=== PATIENT | female | born 1970 | race African-American/Black ===

== ENCOUNTER 2025-02-25 09:20 | Outpatient (CLI) | payer BC, SELFPAY ==
--- NOTE | ~2025-02-25 | XR_ITS ---
XR abdomen/kub 1V 02/25/2025 09:45 Indication: Right ureteral stone Procedure: KUB Comparison: No prior studies for comparison. Findings: There is a right ureteral stone at the L3 level overlying the transverse process measuring approximately 10 x 7 mm. Bowel gas pattern nonobstructive. Moderate colonic fecal loading. There are surgical changes in the epigastric region. There are pelvic phleboliths. Impression: 1: Proximal right ureteral stone at the L3 level measuring 10 x 7 mm. Reviewed, dictated and finalized at location B. Impression: 1: Proximal right ureteral stone at the L3 level measuring 10 x 7 mm.
--- OUTSIDE RECORDS SUMMARY | 2025-02-25 10:24 | XMS_ITS | Encounter Summary ---
Author Organization [facility] Healthcare Address [address] [place] [address] Care Team Providers Care Division Order Technician Name Role Phone Aicha Cuello MD Primary Care Provider Reason for Visit * Diagnostic Imaging (Routine) - Closed Specialty Diagnoses / Procedures Referred By Erisac t Referred To Contact Diagnoses Lung nodule Procedures Breast Imaging Screening Outside Reference Referral, Self Referral ID Status Reason Start Date Expiration Date Visits Re quested Visits Authorized [id number] Closed 01/12/2022 02/11/2023 1 1 Encounter Details Date Type Department Care Team (Late st Contact Info) Description 12/15/2020 Hospital Encounter [facility]iology [facility] [address] [place] [address] Social History Tobacco Use Types Packs/Day Years [...] on file 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 Never 10/28/2024 10:45 AM Katelynn Hinojosa RMA Q2: How many drinks containing alcohol do you have on a typical day when you are drinking? Patient does not drink 10/28/2024 10:45 AM Katleynn Hinojosa RMA Q3: How often do you [...] only and have not been reviewed by [facility] Radiology. There will be no report generated by a [facility] Radiologist. Narrative RAD_MAMMO_BJH - 01/12/2022 10:01 [...] documented as of this encounter Care Teams Division Order Technician Relationship Specialty Start Date End Date Aicha Cuello MD [facility] [place] [address] PCP - General Family Practice 10/15/18 documented as of this encounter
--- OUTSIDE RECORDS SUMMARY | 2025-02-25 10:24 | XMS_ITS | Encounter Summary ---
Author Name [facility] [place] [facility] [place] [facility] [place] Address [address] [place] [address] Care Team Providers Care Emergency Management Program Specialist Name Role Phone ANN-MARIE HERNANDEZ Primary Care Provider Unavailabl e Insurance Providers: All historical and current Section Date Range: From patient's date of to the date document was created. This section includes the names of all active insurance providers for the patient. Insurance Provider Type of Coverage Plan Name Start of Policy Coverage End of Policy Coverage Group Number Member ID Insurance Provider's Telephone Number Policy Ferreira's Name Patient's Relationship to Policy Ferreira [place] PREFERRED PROVIDER ORGANIZAT ION (PPO) USPS BASIC SELF Sep 17, 2024 33A [id number] [phone] LAWRENCE BRYAN PATIENT ANTHEM [place] PREFERRED PROVIDER ORGANIZAT ION (PPO) USPS BASIC SELF Sep 17, 2024 33A [id number] [phone] LAWRENCE BRYAN PATIENT [place] PREFERRED PROVIDER ORGANIZAT ION (PPO) USPS BASIC SELF Sep 17, 2024 33A [id number] [phone] LAWRENCE BRYAN PATIENT [place] PREFERRED PROVIDER ORGANIZAT ION (PPO) USPS BASIC SELF Sep 17, 2024 33A [id number] [phone] LAWRENCE BRYAN PATIENT [employer] FEP ([id number]) PRESCRIPT ION FEPRX Nov 26, 2021 [id number] [phone] LAWRENCE BRYAN PATIENT [employer] PREFERRED PROVIDER ORGANIZAT ION (PPO) BI-ST KYLE ESCOBAR OPMEN T Sep 17, 2023 [id number] MATTIE SHERMAN RISTOPHER SPOUSE Selected Encounter This section includes the information on record at [place] for the Encounter. 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 This section includes future appointments and future orders which are active, pending or scheduled. Future Appointments This section includes appointments that were scheduled to occur 6 months from the date of the Encounter, up to a maximum of 20 appointments. The data comes from all [place] treatment facilities. Appointment Date/Time Appointment Type Appointme nt Facility Name Dec 26, 2024 01:00 PM AMBULATORY - SURGERY [facility] Jan 06, 2025 08:00 AM AMBULATORY - SURGERY [facility] February 03, 2025 11:40 AM AMBULATORY - SURGERY [facility] Active, Pending, and Scheduled Orders This section includes a listing of several types of active, pending, and scheduled orders, including clinic medications orders, diagnostic test orders, procedure orders and consult orders; where the start date of the order is 45 days before the date of the Encounter or 45 days after the date of theEncounter. The data comes from all [place] treatment facilities. Test Date/Time Test Type Test Details Facility Name Dec 22, 2024 12:00 AM Laboratory - Chemi stry Order TEST URINE (MA-STL) URINE YELLOW SP [facility] Lab Results: +/- 30 days of the encounter This section includes the Chemistry and Hematology Lab Results on record with [place] for the patient. Radiology Reports and Pathology Reports are provided separately, in subsequent sections. Lab Results This section contains the Chemistry/Hematology Results that were resulted 30 days before or 30 daysafter the date of the Encounter. Date/Time Source Result Type Result - Unit Interpretation Reference Range Specimen Type Comment Dec 24, 2024 10:54 AM [facility] GLUCOSE,BLOOD-poct (STL) BLOOD Specimen Type: BLOOD Comment: Test Performed by: [id number] Meter #: [id number] Ordering Provider: ANN-MARIE HERNANDEZ Report Released Date/Time: Dec 24, 2024 11:01 AM Reporting Lab: [place] [address] [facility] [id number] Performing Lab: [address] [address] GLUCOSE,BLOOD-poct (STL) 83 mg/dL 72-99 Dec 23, 2024 04:02 PM [facility] COVID-19 DIAGNOSTIC (FLU/RSV)(STL) NASOPHARYNX Spec imen Type: NASOPHARYNX Comment: Qualitative real-time PCR and RT-PCR to detect viral RNA. A negative result does not preclude infection with the agent(s) tested and should not be used as the sole basis for treatment or other patient management decisions. If negative, but symptoms persist, consider re-testing. Positive results do not rule out bacterial infection or co-infection with other viruses. All results must be combined with clinical observations, patient history, and epidemiological information for final interpretation. Ordering Provider: BRADLEY FRIED Report Released Date/Time: Dec 23, 2024 02:34 PM Reporting Lab: [facility] [place] [id number] Performing Lab: [place] [address] INFLUENZA A NEG Negative INFLUENZA B NEG Negative COVID-19 (STL-PB) NEG Not Detected RSV (Cepheid) Negative Negative Dec 16, 2024 06:45 AM [facility] CBC BLOOD Specimen Type: BLOOD No comment entered. Ordering Provider: BRADLEY FRIED Report Released Date/Time: Nov 19, 2024 08:50 AM Reporting Lab: [place] [id number] Performing Lab: [place] [address] WBC 5.5 10*3/uL 3.6-11.2 RBC 4.07 10*6/uL 3.60-5.00 HGB 11.4 g/dL 11.0-14.9 HCT 34.6 32.6-43.4 MCV 85.0 fL 80.0-100.0 MCH 28.0 pg 27.0-34.0 MCHC 32.9 g/dL L 33.0-36.0 PLT 274 10*3/uL 150-400 MPV 9.2 fL 7.5-11.2 RDW 12.9 11.8-15.1 LYMPHOCYTES, AUTO % 44 MONOCYTES, AUTO % 7 NEUTROPHILS, AUTO % 46 EOSINOPHILS, AUTO % 2 BASOPHILS, AUTO % 1 LYMPHOCYTES, ABSOLUTE 2.40 10*3/uL 0.77- 4.50 MONOCYTES, ABSOLUTE 0.37 10*3/uL 0.19-0. 80 NEUTROPHILS, ABSOLUTE 2.54 10*3/uL 2.10- 8.00 EOSINOPHILS, ABSOLUTE 0.12 10*3/uL 0.00- 0.60 BASOPHILS, ABSOLUTE 0.06 10*3/uL 0.00-0. 20 Dec 16, 2024 06:45 AM [facility] COMPREHENSIVE METABOLIC PANEL PLASMA Specimen Type: PLASMA Comment: No hemolysis noted. VERIFIED BY REPEAT Ordering Provider: BRADLEY FRIED Report Released Date/Time: Nov 19, 2024 08:50 AM Reporting Lab: [address] [place] [address] Performing Lab: [facility] [address] [facility] [id number] CREATININE 0.86 mg/dL 0.6-1.1 UREA NITROGEN 10.3 mg/dL 9.0-25.0 GLUCOSE 81 mg/dL 72-99 SODIUM 139 meq/L 136-145 POTASSIUM 3.8 meq/L 3.5-5 CHLORIDE 105 meq/L 98-107 CARBON DIOXIDE 26 meq/L 22-31 CALCIUM 9.5 mg/dL 8.4-10.4 PROTEIN 7.1 g/dL 6-8.6 ALBUMIN 4.1 g/dL 3.4-5 TOTAL BILIRUBIN 0.6 mg/dL 0.2-1.2 ALKALINE PHOSPHATASE 77 U/L 40-150 AST/SGOT 28 U/L 5-34 ALT/SGPT 26 U/L 8-40 EGFR (CKD-EPI 2020) 81.2 >60 Vital Signs: All taken on the encounter date This section contains inpatient and outpatient Vital Signs collected on the date of the Encounter. Date/Time Temperature Pulse Blood Pressure Respiratory Rate SP02 Pain Height Weight Body Mass Index Source Dec 24, 2024 01:53 PM 98.3 72 150/80 15 96 0 [facility] Dec 24, 2024 10:30 AM 98.6 81 134/82 12 98 0 64 191.2 33 [facility] N Advance Directives: All historical and current Section Date Range: From patient's date of to the date document was created. This section includes ALL of a patient's completed or amended [place] Advance and Rescinded Directives. The entries below indicate that a directive exists for the patient, but an actual copy is not included with this document. The data comes from all [place] facilities. Date Advance Directives Provider Source Mar 21, 1996 ADVANCE DIRECTIVE HARJIT BURGOS [facility] Encounter Notes: All associated encounter notes This section contains the clinical notes associated to the Encounter. 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 No History of cancer diagnosis? No History of radiation therapy to planned surgical field(s)?No History of sleep apnes?Yes If yes, do you currently use CPAP machine? YesComment: Dentures:No Hearing Aides:No Ambulatory Aides:No Personal Belongings Secured in locker. 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 No Pain No Do you have a history of tobacco use?No No tobacco use in the last 12 months Do you have an Advance Directive?No Nursing care plan STANDARD OF CARE / PRACTICE INITIAL NURSING DIAGNOSIS: AETC Alteration in Comfort and Knowledge Related to: Invasive procedure: EXPECTED OUTCOMES: Patient Will: X Verbalize an understanding of procedure. Target Date: X Verbalize effective use of pain medication. Target Date: X Be free of complications post-procedure. Target Date: X Verbalize knowledge of discharge instructions and follow-up care. Target Date: NURSING INTERVENTIONS: PHYSIOLOGICAL 1. Assess and monitor vital signs and respiratory status pre and post-procedure. INITIATED 2. Assess need for PT/OT instruction prior to procedure (i.e.,crutch training). NOT APPLICABLE 3. Assess incision site/dressing for drainage, bleeding, hematoma, and site pain post-procedure. INITIATED 4. Initiate appropriate wound care post-procedure. INITIATED 5. Maintain IV access and parenteral infusions pre and post- procedure. INITIATED 6. Assess post-procedure for adequate oral intake, urinary elimination, and return of prior motor function. INITIATED COMFORT 7. Monitor for pain (location, intensity, frequency and precipitating factors). INITIATED 8. Administer, evaluate and document the effectiveness of pain medication. INITIATED SAFETY 9. Keep call light within reach and reinforce calling for assistance as needed. INITIATED 10. Explain and reinforce smoking policy. INITIATED 11. Other: NOT APPLICABLE INFECTION CONTROL 12. Maintain Standard Precautions and explain need to patient/significant others. INITIATED EQUIPMENT NEEDS 13. Assess and provide equipment/supplies required to provide safe patient care. INITIATED KNOWLEDGE (PATIENT EDUCATION) 14. Provide teaching specific to patient's needs: X NPO status X IV therapy X Pain management Early mobility Turning, coughing and deep breathing Incentive spirometer CHRISTINA hose Other: INITIATED 15. Instruct patient/significant other on homecare requirements. INITIATED 16. Signs and symptoms to report to health care team. INITIATED PSYCHOSOCIAL / FUNCTIONAL 17. Encourage feedback related to patient's expectations/concerns related to procedure. INITIATED 18. Assess patient/significant other's ability to manage and comply with discharge instructions. INITIATED DISCHARGE PLANNING 19. Assure appropriate transportation available upon discharge. INITIATED 20. Encourage patient to keep all follow-up clinic appointments. INITIATED 21. Continue discharge planning/aftercare with patient/significant other using interdisciplinary approach: Physician/Service: PT OT Community Support Groups: Other: NOT APPLICABLE 22. Other interventions specific to patient: NOT APPLICABLE THE ABOVE EXPECTED OUTCOMES (GOALS) HAVE BEEN MUTUALLY SET WITH: Patient Nursing Diagnosis: Pain, Acute/Chronic Goals/Expected Outcomes: Patient verbalizes factors theat itensify pain and modifies behavior accordingly. Patient states and carries out out appropriate interventions for pain relief. Interventions Admiinister pharmacological agents as ordered/per control. Assess and reassess pain using the NRS or PANPS per policy Performs comfort measures to promote relaxation and periods of uninterrupted rest Plan activites with patient to provide distraction. Discuss patient's fears of under treated pain, overdose, or addicttion /es/ KYREE ROACH RN REGISTERED NURSE Signed: 12/24/2024 11:52 12/24/2024 ADDENDUM STATUS: COMPLETED 1225 Pt Passport done with all OR support team. Pt transferred to OR Via stretcher and OR team /es/ NELLA ROACH RN REGISTERED NURSE Signed: 12/24/2024 12:27 12/24/2024 ADDENDUM STATUS: COMPLETED Received pt. from PACU @1350, A&O x4, VSS, no c/o voiced, Coban wrap dressing intact to right hand/wrist, able to wiggle pinky finger; all others remain numb from surgical block, capillary refill > 3 secs., tolerating PO, bed in low position, call light within reach, at bedside, will continue to monitor pt. and discharge when ready. /tristin/ DANA URBINA LPN REGISTERED NURSE STUDENT Signed: 12/24/2024 14:15 12/24/2024 ADDENDUM STATUS: COMPLETED Discharge instructions and follow-up appointment provided; verbalized understanding, SAE Quintanilla, pt. and ambulated off unit to olive picker medication from pharmacy then go home @1415. /tristin/ DANA URBINA LPN REGISTERED NURSE STUDENT Signed: 12/24/2024 14:19 12/24/2024 ADDENDUM STATUS: COMPLETED AETC DISCHARGE NURSING DIAGNOSIS: AETC Alteration in Comfort and Knowledge Related to: Invasive procedure: RT CTR EXPECTED OUTCOMES MET BY PATIENT: Verbalizes an understanding of procedure. , Is free of complications post-procedure., Verbalizes knowledge of discharge instructions and follow-up care., Patient/significant other demonstrates procedures / skills for effective home care., Decreased level of anxiety related to discharge/home care achieved. Comment: ASSESSMENT: Patient is awake and oriented: Yes Vital signs stable: Yes Temperature < 101 F: Yes Wound site stable: Yes Tolerates fluids: Yes Minimal nausea: Yes Able to urinate: Yes Able to ambulate: Yes Patient is free of dyspnea: Yes Patient is free of pain: Yes Pain Score:0 Comment: DISCHARGE: Discharge Summary Date/Time:Dec@14:15 Discharge instruction sheet given to patient: Yes Patient instructed on:Discharge instructions were read to the pt by his nurse Dana VELEZ, reviewed wound care, reasons to call Dr or go to the ER, follow up appointment given, Mode of discharge: ambulatory Accompanied by: Family member, Verbalized understanding of plan of care Follow-up appointment: Clinic: Plastics Date/Time:Dec@08:00 /boyd GRIDER RN REGISTERED NURSE Signed: 12/24/2024 14:44 [facility]
--- OUTSIDE RECORDS SUMMARY | 2025-02-25 10:24 | XMS_ITS | Encounter Summary ---
Author Name [facility] [place] Address [address] [place] [address] Care Team Providers Care Lead Electrician Name Role Phone ANN-MARIE HERNANDEZ Primary Care [...] USPS BASIC SELF Sep 17, 2024 33A [id number] [phone] LAWRENCE BRYAN PATIENT ANTHEM [place] F[place] PREFERRED PROVIDER ORGANIZAT ION (PPO) USPS BASIC SELF Sep 17, 2024 33A [id number] [phone] LAWRENCE BRYAN PATIENT [place] PREFERRED PROVIDER ORGANIZAT ION (PPO) USPS BASIC SELF Sep 17, 2024 33A [id number] [phone] LAWRENCE BRYAN PATIENT [place] PREFERRED PROVIDER ORGANIZAT ION (PPO) USPS BASIC SELF Sep 17, 2024 33A [id number] [phone] LAWRENCE BRYAN PATIENT [employer] FEP ([id number]) PRESCRIPT ION FEPRX Nov 26, 2021 [id number] [phone] LAWRENCE BRYAN PATIENT [employer] PREFERRED PROVIDER ORGANIZAT ION (PPO) BI-ST ATE SHAWN OPMEN T Sep 17, 2023 [id number] MATTIE SHERMAN RISTOPHER SPOUSE Selected Encounter This section includes the information on record at [place] for the Encounter. Date/Time Encounter Type Encounter Description Reason Pro vider Source Oct 31, 2024 01:20 PM Outpatient Encounter ADMIN PAT ACTIVTIES (MASNONCT) IHE Encounter Template Text not used by CT Plan of Treatment: Future Appointments (+ 6 months) and Future Tests (+/- 45 days) The Plan of Treatment section includes future care activities for the patient from all [place] treatmentfacilities. This section includes future appointments and future orders which are active, pending or scheduled. Future Appointments This section includes appointments that were scheduled to occur 6 months from the date of the Encounter, up to a maximum of 20 appointments. The data comes from all [place] treatment facilities. Appointment Date/Time Appointment Type Appointme nt Facility Name Nov 19, 2024 08:30 AM AMBULATORY - SURGERY [facility] Dec 23, 2024 03:30 PM AMBULATORY - MEDICINE [facility] Dec 24, 2024 10:30 AM AMBULATORY - NONE [facility] Dec 26, 2024 01:00 PM AMBULATORY - SURGERY [facility] Jan 06, 2025 08:00 AM AMBULATORY [facility] SUR[facility]ERY [facility] February 03, 2025 11:40 AM [facility] Advance Directives: All historical and current Section Date Range: From patient's date of to the date document was created. This section includes ALL of a patient's completed or amended [place] Advance and Rescinded Directives. The entries below indicate that a directive exists for the patient, but an actual copy is not included with this document. The data comes from all [place] facilities. Date Advance Directives Provider Source Mar 21, 1996 ADVANCE DIRECTIVE HARJIT BURGOS [facility] Encounter Notes: All associated encounter notes This section contains the clinical notes associated to the Encounter. Date/Time Encounter Note(s) Provider Source Oct 31, 2024 01:20 PM ADMINISTRATIVE NOT E: LOCAL TITLE: ADMINISTRATIVE STL STANDARD TITLE: ADMINISTRATIVE NOTE DATE OF NOTE: OCT 31, 2024@13:20 ENTRY DATE: OCT 31, 2024@13:20:30 AUTHOR: MIGUEL BLANK EXP COSIGNER: URGENCY: STATUS: COMPLETED PATIENT CALLED REQUESTING CALL BACK FROM ALLIE /tristin/ MIGUEL BLANK LEAD GEROPSYCHOLOGIST Signed: 10/31/2024 13:23 Receipt Acknowledged By: 11/04/2024 14:35 /tristin/ TOMA REESEN, RN REGISTERED NURSE MIGUEL BLANK [facility]
--- OUTSIDE RECORDS SUMMARY | 2025-02-25 10:24 | XMS_ITS | Clinical Summary ---
Author Organization [facility] Address [address] [place] [address] Care Team Providers Care Burrito Maker Name Role Phone Aicha Cuello MD Primary Care Provider Mariola Suarez Unavailable [phone] Jm Boyle MD Unavailable [phone] Vincent Byrd MD Unavailable [phone] Allergies Active Allergy Reactions Criticality Noted Date Comments Amoxicillin Diarrhea Low Potassium Diarrhea Low Medications cholecalciferol (VITAMIN D-3) 2000 unit capsuleIndications:Wandy min D Deficiency Take 1 capsule (2,000 Units total) by mouth every morning Active montelukast (SINGULAIR) 10 mg tabletIndications:Seaso nal Allergic Rhinitis Take 1 tablet (10 mg total) by mouth as needed Active Auvi-Q 0.3 mg/0.3 mL auto-injection syringeIndications:Anap hylaxis 0.3 mL (0.3 mg total) as needed Epi pen that she has availabel for allergy shots, has never needed it Active fexofenadine (MARKUS) 180 mg tabletIndications:Aller gic Rhinitis Take 1 tablet (180 mg total) by mouth as needed Active ezetimibe (ZETIA) 10 mg tabletIndications:Famil ial hypercholesterolemia Take 1 tablet (10 mg total) by mouth daily 90 tablet 3 023 Active Additional Information Patient taking differently:10 mg oralNightly, Indications: hyperlipidemia, Reported on 04/17/2024 buPROPion XL (WELLBUTRIN XL) 300 mg 24 hr tabletIndications:Anxie ty with Depression Take 1 tablet (300 mg total) by mouth every morning 023 Active docusate sodium (Colace) 100 mg capsuleIndications:cons tipation Take 1 capsule (100 mg total) by mouth 2 (two) times a day as needed for constipation 60 capsule 5 023 Active ibuprofen (ADVIL,MOTRIN) 600 mg tablet Take 1 tablet (600 mg total) by mouth every 6 (six) hours as needed for pain 30 tablet 024 Active acetaminophen (TYLENOL) 500 mg tablet Take 1 tablet (500 mg total) by mouth every 6 (six) hours as needed for pain 60 tablet 024 Active polyethylene glycol (MIRALAX) 17 gram/dose bulk powder Take 17 g by mouth daily for 17 days 289 g 024 Active naproxen (NAPROSYN) 500 mg tablet Take 1 tablet (500 mg total) by mouth 2 (two) times a day as needed 024 Active semaglutide (OZEMPIC) 2 mg/dose (8 mg/3 mL) pen injector injectionIndications:Ty pe 2 diabetes mellitus without complication, without long-term current use of insulin (HCC) Inject 2 mg under the skin every 7 days 9 mL 3 025 2025 Active rosuvastatin (CRESTOR) 10 mg tabletIndications:Famil ial hypercholesterolemia Take 1 tablet (10 mg total) by mouth daily 90 tablet 3 025 2025 Active hydrOXYzine (ATARAX) 10 mg tablet Take 1 tablet (10 mg total) by mouth nightly as needed 025 Active cephalexin (KEFLEX) 500 mg capsule Take 1 capsule (500 mg total) by mouth 3 (three) times a day 025 Active estradioL (Estrace) 0.01 % (0.1 mg/gram) vaginal creamIndications:Atroph y of Vulva Insert 2 g into the vagina 2 (two) times a week 16 g 3 025 2024 Active testosterone 50 mg/5 gram (1 %) Apply 2-3 drops to the forearms daily for decreased libido 5 g 025 Active Active Problems Patient Care Coordination No te Formatting of this note migh t be different from the original. Referring provider: Dr. Dayron Real Ms. Armida Davis is a 50-year-old with a lung nodule. Patient has a history of a scalp tumor. On 03/24/2021 the patient underwent excision of the right occipital scalp. 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 On 04/22/2021 the patient underwent a CT of the head and neck which incidentally detected a 1 cm left apical pulmonary nodule or vascular structure and enlarged mediastinal lymphadenopathy. On 04/27/2021 the patient underwent a wide local resection of the right scalp. Final pathology showed no evidence of previously biopsied neoplasm. On 05/13/2021 the patient underwent a chest CT with IV contrast which noted a 2 cm aortic or pulmonary window lymph node. There was stable left hilar lymph nodes. For reference 1 left hilar lymph node measured 1 cm. There was a stable 8 mm partially calcified nodule in the left upper lobe with smaller adjacent nodules in stable mediastinal left hilar adenopathy. There are tiny noncalcified hypoattenuating lesions in the liver and spleen. These findings are suggestive of a granulomatous process such as histoplasmosis or sarcoidosis. There was mild left hydronephrosis. Patient is a never smoker. Patient presents today for further surgical evaluation. Review of systems: EENT: Positive for blurred vision. All other systems reviewed and are negative. 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 Dysuria 08/23/2020 Dyslipidemia 05/10/2020 Morbid obesity with body mass index of 40.0-49.9 05/10/2020 LISA on CPAP 05/10/2020 S/P laparoscopic sleeve gastrectomy 05/10/2020 Uncontrolled type 2 diabetes mellitus with hyper glycemia 05/10/2020 Vitamin D deficiency 03/10/2020 Hypersomnia 11/14/2019 Familial hypercholesterolemia 07/16/2019 Fatigue due to sleep pattern disturbance [address] D (sexually transmitted disease) 01/02/2018 Vaginal itching 01/02/2018 Yeast infection of the vagina 01/02/2018 Elevated liver enzymes 12/04/2017 Vaginal discharge 11/28/2017 Encounter for long-term current use of medicatio n 08/15/2017 Muscle pain 08/15/2017 Type 2 diabetes mellitus 08/15/2017 Hypothyroidism 02/07/2017 Menorrhagia 12/22/2016 Abnormal uterine bleeding (AUB) 02/24/2014 Hot flashes due to menopause 02/24/2014 Class 3 severe obesity with body mass index (BMI) of 40.0 to 44.9 in adult 01/31/2014 Overview (11/18/2021): Obesity Overview: Obesity Ankle pain 01/31/2014 Overview (11/06/2018): Right ankle pain Overview: Overview: Right ankle pain History of hypothyroidism 01/31/2014 Overview (11/06/2018): History of hypothyroidism Overview: Overview: History of hypothyroidism Seasonal allergic rhinitis 01/31/2014 Overview (11/06/2018): Seasonal allergies Overview: Overview: Seasonal allergies Post-operative state 01/31/2014 Overview (11/06/2018): Bariatric surgery status Overview: Overview: Bariatric surgery status Obesity, diabetes, and hypertension syndrome Overview (11/06/2018): Metabolic syndrome Overview: Overview: Obesity Overview: Metabolic syndrome Mixed hypercholesterolemia and hypertriglyceride estelle 01/31/2014 Overview (11/06/2018): Hyperlipidemia Overview: Overview: Hyperlipidemia Impaired fasting glucose 01/31/2014 Overview (11/06/2018): IFG (impaired fasting glucose) Overview: Overview: IFG (impaired fasting glucose) Encounter for preventive health examination 01/16 Resolved Problems Problem Noted Date Diagnosed Date Resolved Date Postoperative pain 05/10/2020 5 Encounters Date Type Department Care Team Description 12/23/2024 Orders Only [facility] Obstetrics and Gynecology [address] [facility] 7[address] [place] [address] Isaura Olivares MD 12/22/2024 1:00 PM CDT Office Visit [facility] Obstetrics and Gynecology [address] 1st [address] [place] [address] Isaura Olivares MD Low libido (Primary Dx); Vaginal atrophy from Last 3 Months Immunizations Immunization Administration Dates Next Due Adenovirus 09/24/1990 H1N1 Inj 11/20/2009 Hep A, Adult 09/02/2004,10/12/2003 Hep B Vaccine 10/04/2010,04/04/2010,12/29/2009 Influenza LAIV (Nasal) 07/04/2010 Influenza, Quadrivalent, Spl it, Intramuscular 07/28/2019 Influenza, Quadrivalent, Spl it, Preservative Free, Intradermal 07/24/2016 Influenza, Quadrivalent, Spl it, Preservative Free, Intramuscular 08/04/2021,06/23/2020,07/28/2019,06/24,06/23/2018 Influenza, Split 08/24/2011 Influenza, Trivalent, Cell Culture-based MDCK, Preservative Free, Antibiotic Free, Intramuscular 06/30/2024 Influenza, Trivalent, IM (MDV) 07/21/2013 Influenza, Trivalent, Preser vative Free, Intramuscular 07/10/2017 Influenza, Unspecified 07/10/2023,2021,08/04/2021,06/23,07/28/2019,06/23/2018,07/10/2017 ,08/05/2016,07/24/2016,07/31/2015,07/18,07/21/2013,06/29/2012, 1,08/21/2009,08/22/2008,08/24/2007,12/2006,10/12/2003,07/20/1993 MMR 07/31/2015,08/24/1992 Measles / Rubella 09/24/1990 Meningococcal Polysaccharide (Menomune) 03/01/1991 OPV 10/11/1990 Plague 07/20/1993 Pneumococcal Polysaccharide PPV23 01/14/2020 Td, adsorbed 10/12/2003,09/24/1990 Tdap 12/29/2009 Typhoid Inactivated 08/24/1992 Varicella 07/19/2017,07/31/2015 ZOSTER Recombinant 11/23/2023,07/13/2023 Surgical History Surgery Date Site/Laterality Comments SECTION X 2 GASTRIC BYPASS 09/17/2019 - 09/16/2020 TUBAL LIGATION 09/17/2005 - 09/16/2006 HYSTEROSCOPY W/ ENDOMETRIAL ABLATION 09/17/2009 - 09/16/2010 LAPAROSCOPIC GASTRIC BANDING 12/16/2012 - 01/14/2013 [facility] STOMACH SURGERY 09/17/2012 - 09/16/2013 port infection from Lap Band, port removed TUMOR REMOVAL from scalp CARPAL TUNNEL RELEASE 12/05/2022 Left ABDOMINAL SURGERY HYSTERECTOMY 05/01/2024 Medical History Medical History Date Comments Covid-19 06/2020 Sleep apnea 06/2020 uses sometimes Type 2 diabetes mellitus (HCC) d iet controlled-no CGM, insulin, or oral meds HLD (hyperlipidemia) PONV (postoperative nausea a nd vomiting) only with gastric bypass 202 0 Allergic rhinitis receives aller gy injections, keeps Epi pen on hand for injections Wears glasses Tooth missing Chipped tooth bottom Pulmonary nodule being monitored annually Family History * Patient is adopted Medical History Relation Name Comments No Known Problems Mother Relation Name Status Comments Mother Social History Tobacco Use Types Packs/Day Years Used Date Smoking Tobacco: Never Smokeless Tobacco: Never Tobacco Cessation:Counseling Given: Not Answered Alcohol Use Standard Drinks/Week Comments Yes 0 [...] on file Legal Sex Female 10:50 PM DRESS OPERATOR Gender Identity Female 10/15/2018 11:21 AM DRESS OPERATOR Sexual Orientation Not on file Occupation Industry Job Start Date Job End Date [employer] Not on file Not on file Not on file Obstetrics History Para Term AB IAB SAB Ectopic Multiple Livin g Live Births 2 2 1 1 1 1 Date Outcome GA Total Labor Labor/2nd/3rd Weight Sex Type Anes PTL Lucretia A1 A5 Name Clin 2000 M CS-LT ranv Living 2006 Term F CS-LT ranv Last Filed Vital Signs Vital Sign Reading Time Taken Comments Blood Pressure 143/81 12/22/2024 1:20 PM CDT Pulse 97 12/22/2024 1:20 PM CDT Temperature 37 C (98.6 F) 10/28/2024 10:45 AM DRESS OPERATOR Respiratory Rate 18 10/28/2024 10:45 AM DRESS OPERATOR Oxygen Saturation 100% 05/01/2024 12:10 PM CDT Inhaled Oxygen Concentration - - Weight 86.7 kg (191 lb 1.6 oz) 12/22/2024 1:20 P M CDT Height 163.4 cm (5' 4.33) 12/22/2024 1:20 PM CD T Body Mass Index 32.47 12/22/2024 1:20 PM CDT Plan of Treatment Health Maintenance Due Date Last Done Comments Colon Cancer Screening-Colonoscopy 1972 Depression Screening 1972 Dilated Eye Exam 1972 Foot Exam 1972 DTaP/Tdap/Td Vaccine (2 - Td or Tdap) 12/30/2019 12/29/2009, 10/12/2003, 09/24/1990 Pneumococcal vaccine <65 (2 of 2 - PCV) 01/13/2021 01/14/2020 Albumin Creatinine Ratio, Urine 03/28/2024 , 07/12/2019 Breast Cancer Screening-Mammogram 04/17/2024 04/17/2023, 04/17/2023, 01/09/2022, Additional history exists Covid-19 Vaccine (2023-2 5 season) 2024 08/04/2021, 01/25/2021, 12/28/2020 Regular Well Visit/Exam 18-07/24/2024, 11/18/2021, 10/06/2020, Additional history exists Hemoglobin A1C 10/18/2024 04/17/2024, 03/17, 05/12/2022, Additional history exists eGFR 04/17/2025 04/17/2024, 03/2020, 04/02/2020, Additional history exists Lipid Panel 09/06/2025 09/06/2024, 06/18, 03/23/2023, Additional history exists Hepatitis B Screening Completed 10/04/2010 , 04/04/2010, 12/29/2009 Cervical Cancer Screening Discontinued 11/18/2021, 06/2017 Hepatitis C Screening Completed 11/25/2021, 017 Zoster Vaccine Completed 11/23/2023, 07/13/2023 Influenza Vaccine Completed 06/30/2024, , 06/29/2022, Additional history exists Procedures Procedure Name Priority Date/Time Associated Diagnosis Comments EGFR Routine 04/17/2024 11:34 AM CDT Preoperative testing POCT HEMOGLOBIN A1C Routine 04/17/2024 11:09 AM CDT ALBUMIN CREATININE RATIO, URINE Routine 03/28/2023 3:11 PM CDT Type 2 diabetes mellitus without complication, without long-term current use of insulin (HCC) LIPID PANEL Routine 05/12/2022 Encounter for long-term (current) use of medications Familial hypercholesterolemia SCREENING MAMMOGRAM BILATERAL W LISA Schedule Routine, Read Routine (OP Routine) 01/09/2022 3:51 PM CDT Well woman exam HEPATITIS C ANTIBODY Routine 11/25/2021 2:33 PM DRESS OPERATOR Screening for STD (sexually transmitted disease) THINPREP TIS PAP AND HR HPV DNA REFLEX GENOTYPES 16,18 Routine 11/18/2021 4:58 PM DRESS OPERATOR from Last 3 Months or Most Recently Relevant to Health Maintenance Results * eGFR (04/17/2024 11:34 AM CDT) eGFR 82 >=60 mL/min/1. 73 m2 Comment: Interpretive Data Reference Interval Normal >/= 90 mL/min/1.73m2 Mildly decreased* 60 - 89 mL/min/1.73m2 Mildly to moderately decreased 45 - 59 mL/min/1.73m2 Moderately to severely decreased 30 - 44 mL/min/1.73m2 Severely decreased 15 - 29 mL/min/1.73m2 Kidney Failure < 15 mL/min/1.73m2 *Relative to young adult level Estimated glomerular filtration rate is determined by the 2020 CKD-EPI equation recommended by the National Kidney Foundation (A Unifying Approach to GFR Estimation: Recommendations of the NKF-ASK Task Force on Reassessing the Inclusion of Race in Diagnosing Kidney Disease, JASN 2020). The CKD-EPI equation should not be used for patients with unstable renal function and has not been validated in children and those over 70. Current interpretive data was last reviewed 2021. Blood 04/17/2024 11:3 4 AM CDT 04/17/2024 12:37 PM CDT us Telly Gonsalez MD LAB BLOOD ORDERABLES Fi nal Result [facility] Department of Laboratories [place], [place] [id number] * (ABNORMAL) POCT hemoglobin A1c (04/17/2024 11:09 AM CDT) Hgb A1C, POC 6.0(H) 4.0 - 5.6 % Est Average Gluc POC 126 mg/dL SR[facility] CONNELL Comment: The ADA recommends reporting an estimated Average Glucose (eAG) with all Hemoglobin A1c results using the equation derived from a study of 507 normal and diabetic adults. Minority populations were underrepresented and children were not included. (Diabetes Care 31:2623-7978, 2008). The eAG is not equivalent to a fasting glucose. Blood 04/17/2024 11:0 9 AM CDT 04/17/2024 11:09 AM CDT us Isaura Olivares MD POINT OF CARE TEST ROGER MCCLENDON Final Result [facility] Department [place] [address] * Albumin Creatinine Ratio, Urine (03/28/2023 3:11 PM CDT) Creatinine, ur 130 20 - 275 mg/dL [facility] Microalbumin, ur 1.9 See Note: mg/dL [facility] Comment: Reference Range: Reference Range Not established Microalbumin/creat ratio 15 <30 mcg/mg creat [facility] Comment: The ADA defines abnormalities in albumin excretion as follows: Albuminuria Category Result (mcg/mg creatinine) Normal to Mildly increased <30 Moderately increased 30-299 Severely increased > OR = 300 The ADA recommends that at least two of three specimens collected within a 3-6 month period be abnormal before considering a patient to be within a diagnostic category. Urine 03/28/2023 3:11 PM CDT 03/28/2023 3:11 PM CDT us Toña Sandoval MD LAB URINE ORDERABLES Zora l Result [facility] [address] [place] [address] * Lipid panel (05/12/2022) Blood specimen (specimen) Toña Sandoval MD LAB BLOOD ORDERABLES Zora l Result [facility] * SCREENING MAMMOGRAM BILATERAL W LISA (01/09/2022 3:51 PM CDT) Anatomical Region Laterality Modality Breast Bilateral Mammography Narrative 01/12/2022 12:28 PM CDT Mammogram Technique: Bilateral Digital Breast Tomosynthesis, Bilateral C-view 2D Screening mammogram. Views obtained: bilateral craniocaudal and bilateral mediolateral oblique. Computer Aided Detection was performed. Mammogram Findings: The present examination has been compared to prior imaging studies performed at [facility] on 10/29/2015, and at [facility]. [place], [place] on 10/11/2018 and 12/15/2020. There are scattered areas of fibroglandular density. There is no suspicious abnormality in either breast. Impression: There is no mammographic evidence of malignancy. Annual screening mammography is recommended. OVERALL FINAL ASSESSMENT: BI-RADS CATEGORY 1: Negative. Procedure Note Johana Sanchez MD - 01/12/2022 Mammogram Technique: Bilateral Digital Breast Tomosynthesis, Bilateral C-view 2D Screening mammogram. Views obtained: bilateral craniocaudal and bilateral mediolateral oblique. Computer Aided Detection was performed. Mammogram Findings: The present examination has been compared to prior imaging studies performed at [facility] on 10/29/2015,and at [facility]. [place], [place] on 10/11/2018 and 12/15/2020. There are scattered areas of fibroglandular density. There is no suspicious abnormality in either breast. Impression: There is no mammographic evidence of malignancy. Annual screening mammography is recommended. OVERALL FINAL ASSESSMENT: BI-RADS CATEGORY 1: Negative. Linn Gómez NP IMG MAMMO PROCEDURES Final Result * Hepatitis C antibody (11/25/2021 2:33 PM DRESS OPERATOR) Hep C Ab NON-REACTI VE NON-REACT DANELLE [facility] SIGNAL TO CUT-OFF 0.04 <1.00 [facility] Comment: HCV antibody was non-reactive. There is no laboratory evidence of HCV infection. In most cases, no further action is required. However, if recent HCV exposure is suspected, a test for HCV RNA (test code 88052) is suggested. For additional information please refer to http://education.Catavolt/faq/IRO89i4 (This link is being provided for informational/ educational purposes only.) Blood specimen (specimen) 11/25/2021 2:33 PM DRESS OPERATOR 11/25/2021 2:34 PM DRESS OPERATOR Linn Gómez NP LAB MICROBIOLOGY - G ENERAL ORDERABLES Final Result [facility] [address] [place] [address] * THINPREP TIS PAP AND HR HPV DNA REFLEX GENOTYPES 16,18 (11/18/2021 4:58 PM DRESS OPERATOR) Pathologist [facility] CLINICAL INFORMATION: SCREENING PERIMENOPAUSAL [facility] LMP 11/02/2021 [facility] Previous Pap INFORMATION NOT PROVIDED [facility] Prev. Bx INFORMATION NOT PROVIDED [facility] SOURCE: Cervix, Endocervix [facility] Pap, specimen adequacy Satisfactory for evaluation. Endocervical/mckee sformation zone component present. [facility] HPV interp Negative for intraepithelial lesion or malignancy. [facility] [facility] COMMENTS This Pap test has been evaluated with computer assisted technology. [facility] Bevel Face Stoner And Polisher MMW, CT(ASCP) CT screening location: [place] [address] [employer] [facility] Comment [facility] Comment: EXPLANATORY NOTE: The Pap is a screening test for cervical cancer. It is not a diagnostic test and is subject to false negative and false positive results. It is most reliable when a satisfactory sample, regularly obtained, is submitted with relevant clinical findings and history, and when the Pap result is evaluated along with historic and current clinical information. Human papillomavirus DNA, High Risk E6/E7 Not Detected NOT DETECTED [facility] Comment: Not Detected High Risk HPV types (16,18,31,33,35,39,45,51,52, 56,58,59,66,68) were not detected. Other HPV types which cause anogenital lesions may be present. The significance of the other types of HPV in malignant processes has not been established. Methodology: Real Time PCR 11/18/2021 4:58 PM DRESS OPERATOR 11/21/2021 5:31 AM DRESS OPERATOR Linn Gómez NP LAB CYTOLOGY ORDERAB LES Final Result [facility] [address] [place] [address] [facility] [address] [facility] [address] from Last 3 Months or Most Recently Relevant to Health Maintenance Insurance [facility] [employer] Care Teams Burrito Maker Relationship Specialty Start Date End Date Aicha Cuello MD [address] [facility] [place] [address] PCP - General Family Practice 10/15/18 Mariola Suarez PA [address] [facility] [place] [place] [address] Physician Mechanical Shop Laborer Dermatology 04/22/21 Jm Boyle MD [address] [facility] [place] [address] Product Marketing Engineer Dermatology 04/22/21 Vincent Byrd MD [address] [facility] [place] [address] Consulting Physician Plastic Surgery 12/05/22
--- OUTSIDE RECORDS SUMMARY | 2025-02-25 10:24 | XMS_ITS | Encounter Summary ---
Author Name [facility] ([place]) Organization [facility] ([place]) Address [address], [place] [address] Care Team Providers Care It Application Administrator Name Role Phone ANN-MARIE RUBIO Primary Care Provider Unavailabl e Insurance Providers: [...] USPS BASIC SELF Sep 17, 2024 33A [id number] [phone] LAWRENCE BRYAN PATIENT ANTHEM [place] FEP PREFERRED PROVIDER ORGANIZAT ION (PPO) USPS BASIC SELF Sep 17, 2024 33A [id number] [phone] LAWRENCE BRYAN PATIENT AN[place] PREFERRED PROVIDER ORGANIZAT ION (PPO) USPS BASIC SELF Sep 17, 2024 33A [id number] [phone] LAWRENCE BRYAN PATIENT [place] F[place] PREFERRED PROVIDER ORGANIZAT ION (PPO) USPS BASIC SELF Sep 17, 2024 33A [id number] [phone] LAWRENCE BRYAN PATIENT [place] FEP ([id number]) PRESCRIPT ION FEPRX Nov 26, 2021 [id number] [phone] LAWRENCE BRYAN PATIENT [employer] PREFERRED PROVIDER ORGANIZAT ION (PPO) BI-ST KYLE ESCOBAR OPMEN T Sep 17, 2023 [id number] [phone] WHIT RISTOPHER SPOUSE Selected Encounter This section includes the information on record at OR for the Encounter. Date/Time Encounter Type Encounter Description Reason Provider Source Aug 29, 2024 01:30 PM OFFICE O/P EST MOD 30 MIN PRIMARY CARE/MEDICINE ICD-10-CM E11.9 Type 2 diabetes mellitus without complications ANN-MARIE RUBIO Wilfred Encounter Template Text not used by OR Assessments - Encounter Diagnoses This section includes the primary and secondary diagnoses documented for the Encounter. Date/Time Primary/Secondary Diagnosis Diagnosis Name Provider Source Sep 15, 2024 02:27 PM PRIMARY Type 2 diabetes mellitus without complications [facility] Sep 15, 2024 02:27 PM SECONDARY Anxiety disorder, unspecified [facility] Sep 15, 2024 02:27 PM SECONDARY Dysthymic disorder [facility] Sep 15, 2024 02:27 PM SECONDARY Hyperlipidemia, unspecified [facility] Sep 15, 2024 02:27 PM SECONDARY Hypothyroidism, unspecified [facility] Sep 15, 2024 02:27 PM SECONDARY Obstructive sleep apnea (adult) (pediatric) [facility] Plan of Treatment: Future Appointments (+ 6 months) and Future Tests (+/- 45 days) The Plan of Treatment section includes future care activities for the patient from all OR treatmentfacilities. This section includes future appointments and future orders which are active, pending or scheduled. Future Appointments This section includes appointments that were scheduled to occur 6 months from the date of the Encounter, up to a maximum of 20 appointments. The data comes from all [facility] facilities. Appointment Date/Time Appointment Type Appointme nt Facility Name Oct 08, 2024 03:00 PM AMBULATORY - NEUROLOGY [facility] Nov 19, 2024 08:30 AM AMBULATORY - SURGERY [facility] Dec 23, 2024 03:30 PM AMBULATORY - MEDICINE . [facility] Dec 24, 2024 10:30 AM AMBULATORY - NONE [facility] Cope [facility] Dec 26, 2024 01:00 PM AMBULATORY - SURGERY [facility] Jan 06, 2025 08:00 AM AMBULATORY - SURGERY [facility] February 03, 2025 11:40 AM AMBULATORY - SURGERY [facility] Lab Results: +/- 30 days of the encounter This section includes the Chemistry and Hematology Lab Results on record with [facility] for the patient. Radiology Reports and Pathology Reports are provided separately, in subsequent sections. Lab Results This section contains the Chemistry/Hematology Results that were resulted 30 days before or 30 daysafter the date of the Encounter. Date/Time Source Result Type Result - Unit Interpretation Reference Range Specimen Type Comment Aug 27, 2024 07:41 AM [facility] MICRAL/CREAT PROFILE (STL) URINE Specimen Typ e: URINE No comment entered. Ordering Provider: ANN-MARIE RUBIO Report Released Date/Time: Aug 13, 2024 02:46 PM Reporting Lab: [facility] [address] [place] [phone] Performing Lab: [facility] [address] [place] [phone] URINE ALBUMIN (PB-STL) 15.9 mg/L uACR (STL) 7 mg/g 0-29 CREATININE URINE/OTHERS 221.1 mg/dL H 47-1 10 Aug 27, 2024 07:38 AM [facility] HGA1C BLOOD Specimen Type: BLOOD No comment entered. Ordering Provider: ANN-MARIE RUBIO Report Released Date/Time: Aug 13, 2024 02:46 PM Reporting Lab: [facility] [address] [facility] [phone] Performing Lab: [facility] [address] [facility] [phone] HGA1C 6.3 H 4.0-6.0 Aug 27, 2024 07:38 AM [facility] COMPREHENSIVE METABOLIC PANEL PLASMA Specimen Type: PLASMA Comment: No hemolysis noted. Ordering Provider: ANN-MARIE RUBIO Report Released Date/Time: Aug 13, 2024 02:46 PM Reporting Lab: [facility] [address] [facility] [phone] Performing Lab: [facility] [address] [facility] [phone] CREATININE 1.11 mg/dL H 0.6-1.1 UREA NITROGEN 13.4 mg/dL 9.0-25.0 GLUCOSE 89 mg/dL 72-99 SODIUM 141 meq/L 136-145 POTASSIUM 4.1 meq/L 3.5-5 CHLORIDE 104 meq/L 98-107 CARBON DIOXIDE 27 meq/L 22-31 CALCIUM 9.7 mg/dL 8.4-10.4 PROTEIN 7.7 g/dL 6-8.6 ALBUMIN 4.2 g/dL 3.4-5 TOTAL BILIRUBIN 0.7 mg/dL 0.2-1.2 ALKALINE PHOSPHATASE 82 U/L 40-150 AST/SGOT 49 U/L H 5-34 ALT/SGPT 28 U/L 8-40 EGFR (CKD-EPI 2020) 59.8 >60 Aug 27, 2024 07:38 AM [facility] LIPID PANEL (STL) PLASMA Specimen Type: PLASM A Comment: No hemolysis noted. Ordering Provider: ANN-MARIE RUBIO Report Released Date/Time: Aug 13, 2024 02:46 PM Reporting Lab: [facility] [address] [facility] [phone] Performing Lab: [facility] [address] [facility] [phone] CHOLESTEROL 146 mg/dL 0-200 TRIGLYCERIDE 72 mg/dL 0-150 CALCULATED LDL 75 mg/dL HDL(New) 57 mg/dL >40 Social History: Smoking Status (Most current) and Tobacco Use (All prior to encounter date) This section includes the most current, and the historical, smoking and tobacco- related health factors from the [facility] where the Encounter took place. Current Smoking Status This section includes the most current smoking, or tobacco-related health factor, from the OR facility where the Encounter took place. Date/Time Current Smoking Status Comment Carito webb Dec 31, 2023 09:00 AM VA-TOBACCO NEVER USED [facility] Advance Directives: All historical and current Section Date Range: From patient's date of to the date document was created. This section includes ALL of a patient's completed or amended OR Advance and Rescinded Directives. The entries below indicate that a directive exists for the patient, but an actual copy is not included with this document. The data comes from all OR facilities. Date Advance Directives Provider Source Mar 21, 1996 ADVANCE DIRECTIVE HARJIT BURGOS [facility] Encounter Notes: All associated encounter notes This section contains the clinical notes associated to the Encounter. Date/Time Encounter Note(s) Provider Source Oct 09, 2024 02:23 PM ADDENDUM: LOCAL TITLE: Addendum STANDARD TITLE: ADDENDUM DATE OF NOTE: OCT 09, 2024@14:23:11 ENTRY DATE: OCT 09, 2024@14:23:12 AUTHOR: ANN-MARIE RUBIO EXP COSIGNER: URGENCY: STATUS: COMPLETED please notify that ncv/emg of rt ue shows moderate carpal tunnel syndrome - plastic/ hand surgery consult is placed /tristin/ ANN-MARIE RUBIO STAFF PHYSICIAN Signed: 10/09/2024 14:26 Receipt Acknowledged By: 10/16/2024 14:55 /tristin/ DOC REESE, RN REGISTERED NURSE --- Original Document --- 08/29/24 PRIMARY CARE VIDEO CONNECT STL: Patient is: ESTABLISHED Chief Complaint / Hx of present illness fu on chr med conditions rt cts symptoms - had improved after left cts release in 2021 - REecent JULIO w bso for fibroids , endometriosis / having low libido Outside providers: Review of Systems:see PHI Past Medical History: 1) NKA 2) THYROID GOITER 3) Urinary Tract Infections 4) Contraception 5) Diabetes Mellitus Type 2 ([facility] 34081015) 6) Hyperlipidemia ([facility] 18649119) 7) Obstructive Sleep Apnea of Adult ([facility] [id number]) 8) Anxiety ([facility] [id number]) 9) Hypothyroidism ([facility] [id number]) 10) Recurrent depression Lei Maker History: NA G P post menopausal/LMP: Last PAP: History of abn PAP: HRT hx: History of familial breast/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 2) DOCUSATE NA 100MG CAP TAKE ONE CAPSULE BY MOUTH TWICE ACTIVE DAILY NEEDED FOR SOFTENING STOOL HOLD FOR LOOSE STOOL/DIARRHEA. 3) EPI(EQV-ADRENACLICK)0.3MG/0 .3ML INJCTR INJECT 1 PEN ACTIVE (0.3MG/0.3ML) INTRAMUSCULARLY ONE-TIME FOR ALLERGIC REACTION 4) EZETIMIBE 10MG TAB TAKE ONE TABLET BY MOUTH ONCE A ACTIVE DAY FOR HIGH CHOLESTEROL 5) ROSUVASTATIN CA 20MG TAB TAKE ONE-HALF TABLET BY ACTIVE MOUTH EVERY EVENING FOR HIGH CHOLESTEROL Active Non-VA Medications Status 1) Non-VA BUPROPION HCL 300MG 24HR SA TAB 300MG BY MOUTH ACTIVE ONCE A DAY 2) Non-VA CHOLECALCIFEROL (LOW DOSE VIT D) - (OTC) TAB ACTIVE 125 BY MOUTH ONCE A DAY 3) Non-VA EZETIMIBE 10MG TAB 10MG BY MOUTH ONCE A DAY ACTIVE 4) Non-VA ROSUVASTATIN CA 20MG TAB 10MG BY MOUTH EVERY ACTIVE EVENING 5) Non-VA SEMAGLUTIDE 0.25MG/0.375ML INJ PEN 3ML 0.5MG ACTIVE UNDER THE SKIN EVERY WEEK 10 Total Medications Allergies: Patient has answered NKA Objective: Physical Exam: VSD - Detailed Vitals No data available General: Alert and oriented. NAD. Head: Atraumatic. Normocephalic. Eyes: Conjunctiva clear. Nasal: Normal mucosa without discharge. Mouth/Throat: Oral mucosa is pink and moist. Neck: Supple. Cardiovascular: Regular rate and rhythm. No murmurs or extra heart sounds appreciated on auscultation. Respiratory: Breathing is nonlabored on room air. Lungs are clear to auscultation bilaterally. Abdomen: Abdomen is soft, nontender, and non-distended. Extremities: No edema. Neurologic: CN II-XII grossly intact. No focal deficits. LAST CBC/DIFF DONE WITHIN 8 WEEKS: No data available LAB CUMULATIVE SELECTED 2 Collection DT Spec CHOL TRIG CalcLDL HDL a 08/27/2024 07:38 PLASM 146 72 75 57 b 01/10/2024 06:52 PLASM 124 55 55 58 COMMENTS: a. No hemolysis noted. b. No hemolysis noted. PSA PC STL No data available for: PROST. SPECIFIC AG.(PB-STL) Collection DT Specimen Test Name Result Units Ref Range 08/27/2024 07:38 PLASMA CREATININE 1.11 H mg/dL 0.6 - 1.1 08/27/2024 07:38 PLASMA UREA NITROGEN 13.4 mg/dL 9.0 - 25.0 08/27/2024 07:38 PLASMA GLUCOSE 89 mg/dL 72 - 99 08/27/2024 07:38 PLASMA SODIUM 141 mEq/L 136 - 145 08/27/2024 07:38 PLASMA POTASSIUM 4.1 mEq/L 3.5 - 5 08/27/2024 07:38 PLASMA CHLORIDE 104 mEq/L 98 - 107 08/27/2024 07:38 PLASMA CARBON DIOXIDE 27 mEq/L 22 - 31 08/27/2024 07:38 PLASMA CALCIUM 9.7 mg/dL 8.4 - 10.4 08/27/2024 07:38 PLASMA PROTEIN 7.7 g/dL 6 - 8.6 08/27/2024 07:38 PLASMA ALBUMIN 4.2 g/dL 3.4 - 5 08/27/2024 07:38 PLASMA TOTAL BILIRUBIN 0.7 mg/dL 0.2 - 1.2 08/27/2024 07:38 PLASMA ALKALINE PHOSPHAT 82 U/L 40 - 150 08/27/2024 07:38 PLASMA AST/SGOT 49 H U/L 5 - 34 08/27/2024 07:38 PLASMA ALT/SGPT 28 U/L 8 - 40 08/27/2024 07:38 PLASMA EGFR (CKD-EPI 202 59.8 Ref: >=60 Comment: No hemolysis noted. Collected: 03/12/1996 Acc: [id number] Specimen: VAGINAL PAP SMEAR Brief Clinical Hx: 25 YEAR OLD FEMALE---LMP6-20-96; G0. ROUTINE EXAM. Gross Description: ONE PREPARED SMEAR Microscopic exam: FEW ACUTE INFLAMMATORY CELLS SEEN. ENDOCERVICAL CELLS SEEN. No data available for: COLONOSCOPY CONSULT REPORT STL SLT - Lab Tests Selected Collection DT Specimen Test Name Result Units Ref Range 08/27/2024 07:38 BLOOD HGA1C 6.3 H % 4.0 - 6.0 01/10/2024 06:52 BLOOD HGA1C 6.1 H % 4.0 - 6.0 Assessment/ plan: 54 year NEW VET with DM , HLD , HX OF GOITER ,HX OF HYPOTHYROIDISM ,LISA , s/p JULIO w BSO in apr 2024 ( fibroids , endometriosis ),HX OF HYPERPLASTIC COLON POLYPS , Anxiety disorder bilat CTS / left Carpal tunnel release in 2021 ----- discussed labs a1c 6.3 - pt on ozempic thru pvt pcp/ endo will talk to them to either inc or add another rx ------ rt CTS / hx of left cts release in 2021 will obtain ncv/emg rt ue rx naproxen 500mg bid brace rt hand at night - ct rx zetia , wellbutrin , rosuvastatin -ct cpap / sees pvt sleep clinic - ct rxs - ct fu pcmhi today ------julio w bso on 05/01/24 for benign reasons rtc vvc in 6 mths LABE DISCUSSED PLEASE MAIL 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 /tristin/ ANN-MARIE RUBIO STAFF PHYSICIAN Signed: 08/29/2024 14:08 Receipt Acknowledged By: 08/29/2024 14:19 /boyd ALLRED LPN LICENSED PRACTICAL NURSE 08/29/2024 ADDENDUM STATUS: COMPLETED Labs mailed to the per order of Dr Rubio /boyd ALLRED LPN LICENSED PRACTICAL NURSE Signed: 08/29/2024 14:19 ANN-MARIE RUBIO [facility] Aug 29, 2024 01:38 PM TELEHEALTH NOTE: LOCAL TITLE: PRIMARY CARE VIDEO CONNECT STL STANDARD TITLE: TELEHEALTH NOTE DATE OF NOTE: AUG 29, 2024@13:38 ENTRY DATE: AUG 29, 2024@13:38:56 AUTHOR: ANN-MARIE RUBIO EXP COSIGNER: URGENCY: STATUS: COMPLETED PRIMARY CARE VIDEO CONNECT STL Has ADDENDA Patient is: ESTABLISHED Chief Complaint / Hx of present illness fu on chr med conditions rt cts symptoms - had improved after left cts release in 2021 - REecent JULIO w bso for fibroids , endometriosis / having low libido Outside providers: Review of Systems:see PHI Past Medical History: 1) NKA 2) THYROID GOITER 3) Urinary Tract Infections 4) Contraception 5) Diabetes Mellitus Type 2 ([facility] [id number]) 6) Hyperlipidemia ([facility] [id number]) 7) Obstructive Sleep Apnea of Adult ([facility] [id number]) 8) Anxiety ([facility] 46464985) 9) Hypothyroidism ([facility] [id number]) 10) Recurrent depression Lei Maker History: NA G P post menopausal/LMP: Last PAP: History of abn PAP: HRT hx: History of familial breast/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 2) DOCUSATE NA 100MG CAP TAKE ONE CAPSULE BY MOUTH TWICE ACTIVE DAILY NEEDED FOR SOFTENING STOOL HOLD FOR LOOSE STOOL/DIARRHEA. 3) EPI(EQV-ADRENACLICK)0.3MG/0 .3ML INJCTR INJECT 1 PEN ACTIVE (0.3MG/0.3ML) INTRAMUSCULARLY ONE-TIME FOR ALLERGIC REACTION 4) EZETIMIBE 10MG TAB TAKE ONE TABLET BY MOUTH ONCE A ACTIVE DAY FOR HIGH CHOLESTEROL 5) ROSUVASTATIN CA 20MG TAB TAKE ONE-HALF TABLET BY ACTIVE MOUTH EVERY EVENING FOR HIGH CHOLESTEROL Active Non-VA Medications Status 1) Non-VA BUPROPION HCL 300MG 24HR SA TAB 300MG BY MOUTH ACTIVE ONCE A DAY 2) Non-VA CHOLECALCIFEROL (LOW DOSE VIT D) - (OTC) TAB ACTIVE 125 BY MOUTH ONCE A DAY 3) Non-VA EZETIMIBE 10MG TAB 10MG BY MOUTH ONCE A DAY ACTIVE 4) Non-VA ROSUVASTATIN CA 20MG TAB 10MG BY MOUTH EVERY ACTIVE EVENING 5) Non-VA SEMAGLUTIDE 0.25MG/0.375ML INJ PEN 3ML 0.5MG ACTIVE UNDER THE SKIN EVERY WEEK 10 Total Medications Allergies: Patient has answered NKA Objective: Physical Exam: VSD - Detailed Vitals No data available General: Alert and oriented. NAD. Head: Atraumatic. Normocephalic. Eyes: Conjunctiva clear. Nasal: Normal mucosa without discharge. Mouth/Throat: Oral mucosa is pink and moist. Neck: Supple. Cardiovascular: Regular rate and rhythm. No murmurs or extra heart sounds appreciated on auscultation. Respiratory: Breathing is nonlabored on room air. Lungs are clear to auscultation bilaterally. Abdomen: Abdomen is soft, nontender, and non-distended. Extremities: No edema. Neurologic: CN II-XII grossly intact. No focal deficits. LAST CBC/DIFF DONE WITHIN 8 WEEKS: No data available LAB CUMULATIVE SELECTED 2 Collection DT Spec CHOL TRIG CalcLDL HDL a 08/27/2024 07:38 PLASM 146 72 75 57 b 01/10/2024 06:52 PLASM 124 55 55 58 COMMENTS: a. No hemolysis noted. b. No hemolysis noted. PSA PC STL No data available for: PROST. SPECIFIC AG.(PB-STL) Collection DT Specimen Test Name Result Units Ref Range 08/27/2024 07:38 PLASMA CREATININE 1.11 H mg/dL 0.6 - 1.1 08/27/2024 07:38 PLASMA UREA NITROGEN 13.4 mg/dL 9.0 - 25.0 08/27/2024 07:38 PLASMA GLUCOSE 89 mg/dL 72 - 99 08/27/2024 07:38 PLASMA SODIUM 141 mEq/L 136 - 145 08/27/2024 07:38 PLASMA POTASSIUM 4.1 mEq/L 3.5 - 5 08/27/2024 07:38 PLASMA CHLORIDE 104 mEq/L 98 - 107 08/27/2024 07:38 PLASMA CARBON DIOXIDE 27 mEq/L 22 - 31 08/27/2024 07:38 PLASMA CALCIUM 9.7 mg/dL 8.4 - 10.4 08/27/2024 07:38 PLASMA PROTEIN 7.7 g/dL 6 - 8.6 08/27/2024 07:38 PLASMA ALBUMIN 4.2 g/dL 3.4 - 5 08/27/2024 07:38 PLASMA TOTAL BILIRUBIN 0.7 mg/dL 0.2 - 1.2 08/27/2024 07:38 PLASMA ALKALINE PHOSPHAT 82 U/L 40 - 150 08/27/2024 07:38 PLASMA AST/SGOT 49 H U/L 5 - 34 08/27/2024 07:38 PLASMA ALT/SGPT 28 U/L 8 - 40 08/27/2024 07:38 PLASMA EGFR (CKD-EPI 202 59.8 Ref: >=60 Comment: No hemolysis noted. Collected: 03/12/1996 Acc: [id number] Specimen: VAGINAL PAP SMEAR Brief Clinical Hx: 25 YEAR OLD FEMALE---LMP6-20-96; G0. ROUTINE EXAM. Gross Description: ONE PREPARED SMEAR Microscopic exam: FEW ACUTE INFLAMMATORY CELLS SEEN. ENDOCERVICAL CELLS SEEN. No data available for: COLONOSCOPY CONSULT REPORT STL SLT - Lab Tests Selected Collection DT Specimen Test Name Result Units Ref Range 08/27/2024 07:38 BLOOD HGA1C 6.3 H % 4.0 - 6.0 01/10/2024 06:52 BLOOD HGA1C 6.1 H % 4.0 - 6.0 Assessment/ plan: 54 year NEW VET with DM , HLD , HX OF GOITER ,HX OF HYPOTHYROIDISM ,LISA , s/p JULIO w BSO in apr 2024 ( fibroids , endometriosis ),HX OF HYPERPLASTIC COLON POLYPS , Anxiety disorder bilat CTS / left Carpal tunnel release in 2021 ----- discussed labs a1c 6.3 - pt on ozempic thru pvt pcp/ endo will talk to them to either inc or add another rx ------ rt CTS / hx of left cts release in 2021 will obtain ncv/emg rt ue rx naproxen 500mg bid brace rt hand at night - ct rx zetia , wellbutrin , rosuvastatin -ct cpap / sees pvt sleep clinic - ct rxs - ct fu pcmhi today ------julio w bso on 05/01/24 for benign reasons rtc vvc in 6 mths LABE DISCUSSED PLEASE MAIL 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 /boyd RUBIO STAFF PHYSICIAN Signed: 08/29/2024 14:08 Receipt Acknowledged By: 08/29/2024 14:19 /boyd ALLRED LPN LICENSED PRACTICAL NURSE 08/29/2024 ADDENDUM STATUS: COMPLETED Labs mailed to the per order of Dr Rubio /boyd ALLRED LPN LICENSED PRACTICAL NURSE Signed: 08/29/2024 14:19 10/09/2024 ADDENDUM STATUS: COMPLETED please notify that ncv/emg of rt ue shows moderate carpal tunnel syndrome - plastic/ hand surgery consult is placed /boyd RUBIO STAFF PHYSICIAN Signed: 10/09/2024 14:26 Receipt Acknowledged By: * AWAITING SIGNATURE * LAKIA PRIEST NIDHI [facility] Aug 29, 2024 01:33 PM TELEHEALTH NOTE: LOCAL TITLE: PCS PACT JAKI VIDEO CONNECT STL STANDARD TITLE: TELEHEALTH NOTE DATE OF NOTE: AUG 29, 2024@13:33 ENTRY DATE: AUG 29, 2024@13:33:06 AUTHOR: OMAR ALLRED EXP COSIGNER: URGENCY: STATUS: COMPLETED Patient Identifiers : Full Name Date of Visit conducted by Clinical Video Telehealth. V15 [facility] Video Connect/Video to Home [facility] Video Connect (VVC)/Video to home template v1.5 Visit conducted by synchronous telehealth. Location/emergency number confirmed. Environment surveyed and all participants identified. Virtual conference room locked. VVC/Video to home appointment information: The following items were reviewed: - The nature of telehealth, its benefits, and risks. - Confidentiality and its limits. - The importance of having a confidential location for the service. - The emergency plan. - The appointment should be treated like an in person appointment (no smoking or driving during session, showing up fully dressed, etc.) *The Virtual Medical Room was locked for this encounter. *A survey of the environment was conducted and it is appropriate to conduct a VVC appointment. *Confirmed [place]'s Non-VA location for this appointment: Other Location: Address: [facility] [place] does not have an emergency contact. * was notified of right to decline Telehealth services and eligibility for other options. consented to be seen via VVC. EMERGENCY PLAN In the event of an emergency, the or family will call emergency services, if capable. The Teleprovider will remain in the virtual medical room until emergency response arrives and handoff to emergency services is complete. If [place] is unable to make emergency call, the Teleprovider is to call the national E911 service at [phone] and ask to be connected to emergency services for the [place]'s location. 's Crisis Line: Dial 988 then press 1, or text [phone] Office of Connected Care Helpdesk ([facility]): [phone] or [phone] Verified Provider's location and contact information for this appointment: [address] [address] x Provider Visit: Reason for Visit: Established Follow-Up: Allergy Review: Patient has answered NKA Allergy list reviewed and remains current. Recent Vital Signs: Temperature: 98.6 F [37.0 C] (12/31/2023 09:41) Pulse: 79 (12/31/2023 09:41) Respiration: 16 (12/31/2023 09:41) B/P: 115/77 (12/31/2023 09:41) Pain: 8 (12/31/2023 09:41) Wt: 186.3 lb [84.50 kg] (12/31/2023 09:41) Ht: 64 in [162.6 cm] (12/31/2023 09:41) BMI: 32.0 POX: 97% (12/31/2023 09:41) Blood sugar glucometer reading: NA VS could not be visualized today PERSONAL HEALTH INVENTORY Notes: No data available for PHI note titles PERSONAL HEALTH INVENTORY - MAP: 12/31/2023 Personal Health Plan [place], [place], Purpose (MAP) Health [facility] to stay alive for What matters most to you in your life right now? -- 's Response: my health WHOLE HEALTH SHARED GOALS: PERSONAL HEALTH PLAN - SHARED GOALS: 12/31/2023 [facility] Shared Goals stay healthy control diabetes and cholesterol SHARED GOALS stay active Would you like to discuss any personal problem, family problem, alcohol use, drug use, or a mental or emotional illness? No COVID-19 Immunization - L,N,P,PH,U: Virtual/Telehealth Visit - Patient educated on the need for receiving COVID-19 (SARS-CoV-2) immunization either at VA or outside facility. Influenza Immunization - L,N,P,PH,U: Virtual/Telehealth Visit - Patient educated on the need for receiving influenza immunization either at VA or outside facility. Sexual Orientation - CP,L,N,P,PH,PS,S,U: The patient thinks of their sexual orientation as: Straight or Heterosexual Herpes Zoster (Shingles) Vaccine - L,N,P,PH,U: Virtual/Telehealth Visit - Patient educated on the need for receiving Herpes Zoster (Shingles) immunization either at VA or outside facility. Tdap Immunization - L,N,P,PH,U: Virtual/Telehealth Visit - Patient educated on the need for receiving Tdap immunization either at VA or outside facility. PAVE Foot Check - L,N,P,PH,PO,PT,U: Not able to perform complete foot exam today due to: Comment: [facility] appointment /es/ OMAR ALLRED LPN LICENSED PRACTICAL NURSE Signed: 08/29/2024 13:38 OMAR ALLRED [facility]
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
--- OUTSIDE RECORDS SUMMARY | 2025-02-25 10:24 | XMS_ITS ---
Author Name [facility] Organization [facility] Address [address] [place] [address] Care Team Providers Care Vibratory Pile Driver Name Role Phone ANN-MARIE HERNANDEZ Primary Care [...] USPS BASIC SELF Sep 17, 2024 33A [id number] [phone] LAWRENCE BRYAN PATIENT ANTHEM [employer] [place] FEP PREFERRED PROVIDER ORGANIZAT ION (PPO) USPS BASIC SELF Sep 17, 2024 33A [id number] [phone] LAWRENCE BRYAN PATIENT AN[place] [employer] [place] F[place] PREFERRED PROVIDER ORGANIZAT ION (PPO) USPS BASIC SELF Sep 17, 2024 33A [id number] [phone] LAWRENCE BRYAN PATIENT [place] F[place] PREFERRED PROVIDER ORGANIZAT ION (PPO) USPS BASIC SELF Sep 17, 2024 33A [id number] [phone] LAWRENCE BRYAN PATIENT [employer] F[employer] ([id number]) PRESCRIPT ION FEPRX Nov 26, 2021 [id number] [phone] LAWRENCE BRYAN PATIENT [employer] PREFERRED PROVIDER ORGANIZAT ION (PPO) BI-ST ATE DEVEL OPMEN T Sep 17, 2023 [id number] MATTIE SHERMAN [employer]IST[employer] SPOUSE Selected Encounter This section includes the information on record at MD for the Encounter. Date/Time Encounter Type Encounter Description Reason Provider Source Dec 24, 2024 11:01 AM OFFICE O/P EST LOW 20 MIN ANESTHESIA PRE/POST-OP CONSULT ICD-10-CM Z01.818 Encounter for other preprocedural examination TREVOR GRIFFIN [facility] Encounter Template Text not used by MD Assessments - Encounter Diagnoses This section includes the primary and secondary diagnoses documented for the Encounter. Date/Time Primary/Secondary Diagnosis Diagnosis Name Provider Source Jan 02, 2025 10:54 AM PRIMARY Encounter for other preprocedural examination YOLANDA GRIFFIN [facility] Jan 02, 2025 10:54 AM SECONDARY Encounter for other specified surgical aftercare YOLANDA GRIFFIN [facility] Plan of Treatment: Future Appointments (+ 6 months) and Future Tests (+/- 45 days) The Plan of Treatment section includes future care activities for the patient [facility] This section includes future appointments and future orders which are active, pending or scheduled. Future Appointments This section includes appointments that were scheduled to occur 6 months from the date of the Encounter, up to a maximum of 20 appointments. The data comes from all MD treatment facilities. Appointment Date/Time Appointment Type Appointme nt Facility Name Dec 26, 2024 01:00 PM AMBULATORY - SURGERY [facility] Jan 06, 2025 08:00 AM AMBULATORY - SURGERY [facility] February 03, 2025 11:40 AM AMBULATORY - SURGERY [facility] Active, Pending, and Scheduled Orders This section includes a listing of several types of active, pending, and scheduled orders, including clinic medications orders, diagnostic test orders, procedure orders and consult orders; where the start date of the order is 45 days before the date of the Encounter or 45 days after the date of theEncounter. The data comes from all MD treatment facilities. Test Date/Time Test Type Test Details Facility Name Dec 22, 2024 12:00 AM Laboratory - Chemi stry Order TEST URINE (MA-STL) URINE YELLOW SP [facility] Lab Results: +/- 30 days of the encounter This section includes the Chemistry and Hematology Lab Results on record with MD for the patient. Radiology Reports and Pathology Reports are provided separately, in subsequent sections. Lab Results This section contains the Chemistry/Hematology Results that were resulted 30 days before or 30 daysafter the date of the Encounter. Date/Time Source Result Type Result - Unit Interpretation Reference Range Specimen Type Comment Dec 24, 2024 10:54 AM [facility] GLUCOSE,BLOOD-poct (STL) BLOOD Specimen Type: BLOOD Comment: Test Performed by: [id number] Meter #: [id number] Ordering Provider: ANN-MARIE HERNANDEZ Report Released Date/Time: Dec 24, 2024 11:01 AM Reporting Lab: [place] [address] [place] [address] Performing Lab: [address] [address] GLUCOSE,BLOOD-poct (L) 83 mg/dL 72-99 Dec 23, 2024 04:02 PM [facility] COVID-19 DIAGNOSTIC (FLU/RSV)(STL) NASOPHARYNX Spec imen Type: [...] Dec 23, 2024 02:34 PM Reporting Lab: [address] Performing Lab: [address] [address] INFLUENZA A NEG Negative INFLUENZA B NEG Negative COVID-19 (STL-PB) NEG Not Detected RSV (Cepheid) Negative Negative Dec 16, 2024 06:45 AM [facility] CBC BLOOD Specimen Type: BLOOD No comment entered. Ordering Provider: BRADLEY FRIED Report Released Date/Time: Nov 19, 2024 08:50 AM Reporting Lab: [address] [address] Performing Lab: [address] [address] WBC 5.5 10*3/uL 3.6-11.2 RBC 4.07 10*6/uL [...] 0.00-0. 20 Dec 16, 2024 06:45 AM [facility] COMPREHENSIVE METABOLIC PANEL PLASMA Specimen Type: PLASMA Comment: No hemolysis noted. VERIFIED BY REPEAT Ordering Provider: BRADLEY FRIED Report Released Date/Time: Nov 19, 2024 08:50 AM Reporting Lab: [facility] [address] [facility] [place] [address] Performing Lab: [facility] [address] [place] [address] CREATININE 0.86 mg/dL 0.6-1.1 UREA NITROGEN 10.3 [...] PM 98.3 72 150/80 15 96 0 [facility] Dec 24, 2024 10:30 AM 98.6 81 134/82 12 98 0 64 191.2 33 [facility] Advance Directives: All historical and current Section Date Range: From patient's date of to the date document was created. This section includes ALL of a patient's completed or amended MD Advance and Rescinded Directives. The entries below indicate that a directive exists for the patient, but an actual copy is not included with this document. The data comes from all MD facilities. Date Advance Directives Provider Source Mar 21, 1996 ADVANCE DIRECTIVE HARJIT BURGOS [facility] Encounter Notes: All associated encounter notes This section contains the clinical notes associated to the Encounter. Date/Time Encounter Note(s) Provider Source Dec 25, 2024 11:06 AM ANESTHESIOLOGY POS T OPERATIVE E & M NOTE: LOCAL TITLE: ANESTHESIA POST-OP STL STANDARD TITLE: ANESTHESIOLOGY POST OPERATIVE E & M NOTE DATE OF NOTE: DEC 25, 2024@11:06 ENTRY DATE: DEC 25, 2024@11:06:38 AUTHOR: YOLANDA GRIFFIN EXP COSIGNER: URGENCY: STATUS: COMPLETED Post-Anesthesia Note No anesthestic complications noted at time of this note's filing. Anesthesia Intra-Op Flowsheet Uploaded to [employer] /es/ YOLANDA GRIFFIN MD STAFF ANESTHESIOLOGIST Signed: 12/25/2024 11:07 YOLANDA GRIFFIN [facility] Dec 24, 2024 03:06 PM ANESTHESIOLOGY POS T OPERATIVE E & M NOTE: LOCAL TITLE: ANESTHESIA POST-OP STL STANDARD TITLE: ANESTHESIOLOGY POST OPERATIVE E & M NOTE DATE OF NOTE: DEC 24, 2024@15:06 ENTRY DATE: DEC 24, 2024@15:06:31 AUTHOR: CARO HUSSEIN EXP COSIGNER: URGENCY: STATUS: COMPLETED Anesthesia Post-Anesthetic No Complications: None Anesthesia Intra-Op Flowsheet Uploaded to [employer] Filed. /es/ CARO HUSSEIN MD Staff Physician, Anesthesiology Signed: 12/24/2024 15:06 CARO HUSSEIN [facility] Dec 24, 2024 11:01 AM ANESTHESIOLOGY PRE OPERATIVE E & M NOTE: LOCAL TITLE: ANESTHESIA PRE-OP STL STANDARD TITLE: ANESTHESIOLOGY PRE OPERATIVE E & M NOTE DATE OF NOTE: DEC 24, 2024@11:01 ENTRY DATE: DEC 24, 2024@11:01:40 AUTHOR: YOLANDA GRIFFIN EXP COSIGNER: URGENCY: STATUS: COMPLETED ELISABETH BRYAN is a 54 year old FEMALE Pre-operative diagnosis: RIGHT CARPAL TUNNEL Operation proposed: RIGHT CARPAL TUNNEL RELEASE VITALS Age: 54 Weight: 194.8 lb [88.36 kg] (11/19/2024 08:33) Height: 64 in [162.6 cm] (11/19/2024 08:33) BMI: 33.5 Blood pressure: 127/81 Pulse: 78 Temperature: 98 F [36.7 C] (11/19/2024 08:33) Respiration: 16 SpO2: 99% Pain: 0 (11/19/2024 08:33) ALLERGIES Patient has answered NKA MEDICATIONS Inpatient: No medications found. Active Outpatient Medications (including Supplies): Active Outpatient Medications Status 1) BUPROPION HCL 300MG 24HR SA TAB TAKE ONE TABLET BY MOUTH ACTIVE ONCE A DAY SWALLOW WHOLE - DO NOT CRUSH OR CHEW. Indication: FOR DEPRESSION 2) DOCUSATE NA 100MG CAP TAKE ONE CAPSULE BY MOUTH TWICE DAILY ACTIVE NEEDED HOLD FOR LOOSE STOOL/DIARRHEA. Indication: FOR SOFTENING STOOL 3) EPI(EQV-ADRENACLICK)0.3MG/0. 3ML INJCTR INJECT 1 PEN ACTIVE (0.3MG/0.3ML) INTRAMUSCULARLY ONE-TIME Indication: FOR ALLERGIC REACTION 4) EZETIMIBE 10MG TAB TAKE ONE TABLET BY MOUTH ONCE A DAY ACTIVE Indication: FOR HIGH CHOLESTEROL 5) ROSUVASTATIN CA 20MG TAB TAKE ONE-HALF TABLET BY MOUTH EVERY ACTIVE EVENING Indication: FOR HIGH CHOLESTEROL Active Non-VA Medications Status 1) Non-VA BUPROPION HCL 300MG 24HR SA TAB 300MG BY MOUTH ONCE A ACTIVE DAY Indication: FOR DEPRESSION 2) Non-VA CHOLECALCIFEROL (LOW DOSE VIT D) - (OTC) TAB 125 BY ACTIVE MOUTH ONCE A DAY Indication: FOR VITAMIN D DEFICIENCY 3) Non-VA EZETIMIBE 10MG TAB 10MG BY MOUTH ONCE A DAY ACTIVE Indication: FOR HIGH CHOLESTEROL 4) Non-VA ROSUVASTATIN CA 20MG TAB 10MG BY MOUTH EVERY EVENING ACTIVE Indication: FOR HIGH CHOLESTEROL 5) Non-VA SEMAGLUTIDE 0.25MG/0.375ML INJ PEN 3ML 0.5MG UNDER ACTIVE THE SKIN EVERY WEEK Indication: FOR DIABETES 10 Total Medications LABS WBC 5.5 10*3/uL 12/16/2024 06:45 RBC 4.07 10*6/uL 12/16/2024 06:45 HGB 11.4 g/dL 12/16/2024 06:45 HCT 34.6 % 12/16/2024 06:45 MCV 85.0 fL 12/16/2024 06:45 MCH 28.0 pg 12/16/2024 06:45 MCHC 32.9 L g/dL 12/16/2024 06:45 RDW 12.9 % 12/16/2024 06:45 PLT 274 10*3/uL 12/16/2024 06:45 MPV 9.2 fL 12/16/2024 06:45 NEUTROPHILS, AUTO % 46 % 12/16/2024 06:45 LYMPHOCYTES, AUTO % 44 % 12/16/2024 06:45 MONOCYTES, AUTO % 7 % 12/16/2024 06:45 EOSINOPHILS, AUTO % 2 % 12/16/2024 06:45 BASOPHILS, AUTO % 1 % 12/16/2024 06:45 NEUTROPHILS, ABSOLUTE 2.54 10*3/uL 12/16/2024 06:45 LYMPHOCYTES, ABSOLUTE 2.40 10*3/uL 12/16/2024 06:45 MONOCYTES, ABSOLUTE 0.37 10*3/uL 12/16/2024 06:45 EOSINOPHILS, ABSOLUTE 0.12 10*3/uL 12/16/2024 06:45 BASOPHILS, ABSOLUTE 0.06 10*3/uL 12/16/2024 06:45 No INR EO data found No PTT EO data found SODIUM 139 mEq/L 12/16/2024 06:45 POTASSIUM 3.8 mEq/L 12/16/2024 06:45 CHLORIDE 105 mEq/L 12/16/2024 06:45 UREA NITROGEN 10.3 mg/dL 12/16/2024 06:45 CREATININE 0.86 mg/dL 12/16/2024 06:45 CALCIUM 9.5 mg/dL 12/16/2024 06:45 PROTEIN 7.1 g/dL 12/16/2024 06:45 ALBUMIN 4.1 g/dL 12/16/2024 06:45 ALKALINE PHOSPHATASE 77 U/L 12/16/2024 06:45 ALT/SGPT 26 U/L 12/16/2024 06:45 AST/SGOT 28 U/L 12/16/2024 06:45 TOTAL BILIRUBIN 0.6 mg/dL 12/16/2024 06:45 CARBON DIOXIDE 26 mEq/L 12/16/2024 06:45 GLUCOSE 81 mg/dL 12/16/2024 06:45 EGFR (CKD-EPI 2020) 81.2 12/16/2024 06:45 HGA1C 6.3 H % 08/27/2024 07:38 No URINALYSIS EO data found No URINE DRUG SCREEN EO data found No TEST LAST ONE EO data found No HIV SCREENING EO data found [facility] Hep C tests in last five years. *No Lab Data Found* DIAGNOSTICS CXR: No Impressions found EK12/22/2024 12:37 Local Title: EKG CONSULT STL Standard Title: CARDIOLOGY DIAGNOSTIC STUDY CONSULT AUTHOR: CLINICAL,DEVICE PROXY SERVICE DOCUMENT IN VISTA IMAGING SEE FULL REPORT IN VISTA IMAGING SIGNATURE NOT REQUIRED SEE SIGNATURE IN VISTA IMAGING ([facility] EKG) AUTO-INSTRUMENT DIAGNOSIS Procedure: 66712 12 Lead ECG Release Status: Released Off-Line Verified Date Verified: Dec 22, 2024@12:37:45 83646.2 Ventricular Rate: 79 BPM 28015.3 Atrial Rate: 79 BPM 91514.4 P-R Interval: 176 ms 09462.5 QRS Duration: 96 ms 64831.6 Q-T Interval: 390 ms 21657 QTC Calculation(Bazett)447 ms 39492.12 Calculated P [place]: 62 degrees 44839.13 Calculated R [place]: -6 degrees 52031.14 Calculated T [place]: 60 degrees Normal sinus rhythm Possible Anterior infarct , age undetermined or lead misplacement Abnormal ECG No previous ECGs available Administrative Closure: 12/22/2024 by: CLINICAL,DEVICE PROXY SERVICE < THE ABOVE NOTE IS UNSIGNED > - DRAFT COPY * DRAFT COPY * DRAFT COPY * DRAFT COPY * DRAFT COPY * DRAFT COPY - PFT: No Pulmonary Function Test for this patient. Echocardiogram: PROGRESS NOTES SELECTED No data available for: ECHOCARDIOGRAPHIC RESULTS MA ECHOCARDIOGRAPHY CONSULT STL ECHO COMPLETED CONSULT STL TRANSESOPHAGEAL ECHOCARDIOGRAM CONSULT RESULTS ([place]) MA TRANSESOPHAGEAL ECHOCARDIOGRAM ([facility]) CONSULT REPORT IMAGING IMPRESSION SELECTED No data available for: US ECHOCARDIOGRAPHY, TRANSTHORACIC US DOPPLER ECHOCARDIOGARPHY COLOR FLOW MAPPING -PB ONLY US DOPPLER ECHOCARDIOGRAPHY-PB ONLY US ECHOCARDIOGRAPHY, TRANSTHORACIC-PB ONLY CARDIOLOGY ECHOCARDIOGRAM No Data Available Stress test: No Stress Test Data available PROBLEM LIST 1) NKA 2) THYROID GOITER 3) Urinary Tract Infections 4) Contraception 5) Diabetes Mellitus Type 2 ([facility] [id number]) 6) Hyperlipidemia ([facility] [id number]) 7) Obstructive Sleep Apnea of Adult ([facility] [id number]) 8) Anxiety ([facility] [id number]) 9) Hypothyroidism ([facility] [id number]) 10) Recurrent depression 11) Ulnar neuropathy of right arm REVIEW OF SYSTEMS/PAST MEDICAL HISTORY Functional capacity: >4 METs, able to walk 2 city blocks or climb flight of stairs RESPIRATORY for: - Recent or current SOB + Sleep apnea W/ CPAP - Asthma - COPD CARDIAC for: - Recent chest pain - Hypertension + Hyperlipidemia - Myocardial infarction - Coronary artery disease - Heart failure - Valvular disease - Atrial fibrillation/flutter PSYCH/CENTRAL NERVOUS for: - Depression - Anxiety - Post-traumatic stress disorder - Cerebral vascular accident - Seizures ENDOCRINE for: + Diabetes + Hypothyroid RENAL for: - Chronic kidney disease - Nephrolithiasis GI for: - GERD - Liver disease - GI bleed VASCULAR/HEMATOLOGY/ONCOLOGY for: - Anemia - Thrombocytopenia - Bleeding disorders MUSCULOSKELETAL/SKIN/PERIPHE RAL NERVOUS for: - Obesity - Arthritis/Degenerative joint disease - Rheumatoid arthritis - Neuropathy /REPRODUCTIVE for: + Childbearing age (15 - 55 YRS), S/P TOTAL HYSTERECTOMY HABITS Alcohol: Occasional Smoking: DENIES Other drugs: Denies SURGICAL HISTORY Reviewed Previous anesthesia complications: None Family history of anesthesia complications: None PHYSICAL EXAM Alert & oriented x3 Heart: Regular rate, Regular rhythm Lungs: Clear to auscultation bilaterally AIRWAY: MP CLASS:I THYROMENTAL DISTANCE:>3 finger breaths RANGE OF MOTION: FULL ; no pain on flexion/extension TEETH: Okay ASA CLASS 2. A patient with mild systemic disease. ANESTHETIC PLAN Monitored Anesthesia Care (MAC) All relevant anesthesia plans, modalites, anesthetic techniques and options were discussed with the patient or guardian including risks, benefits, and potential complications. Pt, family and/or guardian had opportunity to ask questions and all questions were answered to their satisfaction. PRE-INDUCTION REASSESSMENT NPO Greater than 8 hours: Yes /tristin/ YOLANDA GRIFFIN MD STAFF ANESTHESIOLOGIST Signed: 12/24/2024 11:06 Receipt Acknowledged By: 12/24/2024 12:17 /es/ LINDSEY REGAN CRNA, Anesthesiology YOLANDA GRIFFIN [facility]
--- OUTSIDE RECORDS SUMMARY | 2025-02-25 10:24 | XMS_ITS ---
[place] ANESTHESIA PRE/POST-OP CONSULT [facility] Encounter Summary Created on: December 25, 2024 ELISABETH BRYAN : 1970 Sex: Female Author Name [facility] [place] [facility] [place] Address [address] [place] [address] Care Team Providers Care Lead Material Handler Name Role Phone ANN-MARIE RUBIO Primary Care [...] USPS BASIC SELF Sep 17, 2024 33A [id number] [phone] LAWRENCE BRYAN PATIENT ANTHEM [employer] [place] FEP PREFERRED PROVIDER ORGANIZAT ION (PPO) USPS BASIC SELF Sep 17, 2024 33A [id number] [phone] LAWRENCE BRYAN PATIENT AN[place] [place] PREFERRED PROVIDER ORGANIZAT ION (PPO) USPS BASIC SELF Sep 17, 2024 33A [id number] [phone] LAWRENCE BRYAN PATIENT [place] FEP PREFERRED PROVIDER ORGANIZAT ION (PPO) USPS BASIC SELF Sep 17, 2024 33A [id number] [phone] LAWRENCE BRYAN PATIENT [employer] F[employer] ([id number]) PRESCRIPT ION FEPRX Nov 26, 2021 [id number] [phone] LAWRENCE BRYAN PATIENT [employer] PREFERRED PROVIDER ORGANIZAT ION (PPO) BI-ST ATE DEVEL OPMEN T Sep 17, 2023 [id number] MATTIE SHERMAN RISTOPHER SPOUSE Selected Encounter This section includes the information on record at [place] for the Encounter. Date/Time Encounter Type Encounter Description Reason Provider Source Dec 03, 2024 04:24 PM Outpatient Encounter ANESTHESIA PRE/POST-OP CONSULT ICD-10-CM Z04.89 Encounter for examination and observation for oth reasons SYLVIA TODD [facility] Encounter Template Text not used by [place] Assessments - Encounter Diagnoses This section includes the primary and secondary diagnoses documented for the Encounter. Date/Time Primary/Secondary Diagnosis Diagnosis Name Provider Source Dec 04, 2024 07:33 AM PRIMARY Encounter for examination and observation for oth reasons SYLVIA TODD [facility] Plan of Treatment: Future Appointments (+ 6 months) and Future Tests (+/- 45 days) The Plan of Treatment section includes future care activities for the patient from all [place] treatmentfacilities. This section includes future appointments and future orders which are active, pending or scheduled. Future Appointments This section includes appointments that were scheduled to occur 6 months from the date of the Encounter, up to a maximum of 20 appointments. The data comes from all [place] treatment facilities. Appointment Date/Time Appointment Type Appointme nt Facility Name Dec 23, 2024 03:30 PM AMBULATORY - MEDICINE [facility] Dec 24, 2024 10:30 AM AMBULATORY - NONE [facility] Dec 26, 2024 01:00 PM AMBULATORY - SURGERY [facility] Dec 31, 2024 10:00 AM AMBULATORY - SURGERY . [facility] Jan 06, 2025 08:00 AM AMBULATORY - SURGERY [facility] Feb 19, 2025 02:00 PM AMBULATORY - SURGERY [facility] Active, Pending, and Scheduled Orders This section includes a listing of several types of active, pending, and scheduled orders, including clinic medications orders, diagnostic test orders, procedure orders and consult orders; where the start date of the order is 45 days before the date of the Encounter or 45 days after the date of theEncounter. The data comes from all [place] treatment facilities. Test Date/Time Test Type Test Details Facility Name Dec 22, 2024 12:00 AM Laboratory - Chemi stry Order TEST URINE (MA-STL) URINE YELLOW SP [facility] Dec 24, 2024 01:42 PM Pharmacy - Clinic Medication Order [facility] Lab Results: +/- 30 days of the encounter This section includes the Chemistry and Hematology Lab Results on record with [place] for the patient. Radiology Reports and Pathology Reports are provided separately, in subsequent sections. Lab Results This section contains the Chemistry/Hematology Results that were resulted 30 days before or 30 daysafter the date of the Encounter. Date/Time Source Result Type Result - Unit Interpretation Reference Range Comment Dec 24, 2024 10:[address] [facility] GLUCOSE,BLOOD-poct (STL) Specimen Type: BLOOD Comment: Test Performed by: [id number] Meter #: [id number] Ordering Provider: ANN-MARIE RUBIO Report Released Date/Time: Dec 24, 2024 11:01 AM Reporting Lab: [place] [address] [facility] [address] Performing Lab: [address] [address] GLUCOSE,BLOOD-p oct (STL) 83 mg/dL 72-99 Dec 23, 2024 04:[address] [facility] COVID-19 DIAGNOSTIC (FLU/RSV)(STL) Specimen Type: NASOPHARYNX Comment: [...] Dec 23, 2024 02:34 PM Reporting Lab: [address] [address] Performing Lab: [place] [address] INFLUENZA A NEG Negative INFLUENZA B NEG Negative COVID-19 (STL-PB) NEG Not Detected RSV (Cepheid) Negative Negative Dec 16, 2024 06:[address] [facility] CBC Specimen Type: BLOOD No comment entered. Ordering Provider: FARRAH FRIED Report Released Date/Time: Nov 19, 2024 08:50 AM Reporting Lab: [address] [address] Performing Lab: [place] [address] WBC 5.5 10*3/uL 3.6-11.2 RBC 4.07 10*6/uL [...] 10*3/uL 0.00-0.20 Dec 16, 2024 06:[address] [facility] COMPREHENSIVE METABOLIC PANEL Specimen Type: PLASMA Comment: No hemolysis noted. VERIFIED BY REPEAT Ordering Provider: FARRAH FRIED Report Released Date/Time: Nov 19, 2024 08:50 AM Reporting Lab: [facility] [address] [facility] [address] Performing Lab: [facility] [address] [facility] [address] CREATININE 0.86 mg/dL 0.6-1.1 UREA NITROGEN 10.3 [...] U/L 8-40 EGFR (CKD-EPI 2020) 81.2 >60 Advance Directives: All historical and current Section Date Range: From patient's date of to the date document was created. This section includes ALL of a patient's completed or amended [place] Advance and Rescinded Directives. The entries below indicate that a directive exists for the patient, but an actual copy is not included with this document. The data comes from all [place] facilities. Date Advance Directives Provider Source Mar 21, 1996 ADVANCE DIRECTIVE HAR[facility] BURGOS [facility] Encounter Notes: All associated encounter notes This section contains the clinical notes associated to the Encounter. Date/Time Encounter Note(s) Provider Source Dec 16, 2024 09:34 AM ADDENDUM: LOCAL TITLE: Addendum STANDARD TITLE: ADDENDUM DATE OF NOTE: DEC 16, 2024@09:34:31 ENTRY DATE: DEC 16, 2024@09:34:31 AUTHOR: JOSETTE NUNES EXP COSIGNER: URGENCY: STATUS: COMPLETED lab: Dec CBC, CMP w/in acceptable limits The pt needs to have an ECG as previously noted, (order was entered) please have pt complete prior to surgery date. /tristin/ JOSETTE FLEMING Physician Poultry Barn Manager, Anesthesiology Signed: 12/16/2024 09:38 Receipt Acknowledged By: 12/17/2024 12:23 /es/ PRAVIN TORRES RN Case Manager, Plastic Surgery --- Original Document --- 12/03/24 E-CONSULT ANESTHESIA STL: The reason for consult: Right carpal tunnel release I have reviewed pertinent CPRS documentation in the electronic medical record for this patient. The recommendations/findings offered are the result of information from the requesting provider and a chart review only. Asked by Dr. Rubio to evaluate and treat Ms. Bryan for her 6 month history of symptoms of right middle and long finger numbness, nocturnal dysthesias and weakness of the right hand not relieved with wrist splinting and the use of NSAI medications with documented right Carpal Tunnel Syndrome by EMG/NCV. Ms. Bryan reports that she had similar symptoms in the past which spontaneously resolved following her left open CTR. She requests right open CTR for treatment of her symptoms. She reports that she is RHD. She reports no neck pain or cervical radiculopathy. A 54 y/o female with h/o T2DM, HLD, LISA, anxiety, hypothyroidism and depression. Presents now with right carpal tunnel syndrome for right carpal tunnel release. Labs show K+ 4.1, Cr 1.11, BS 89, H/H = 12.4/38.4 Diagnosis and/or Impression: ASA 3 Plan for Thor block if appropriate or GA with LMA 11 minutes to 20 minutes spent reviewing patient's medical records /es/ SYLVIA TODD MD Staff Anesthesiolgist Signed: 12/03/2024 16:30 12/04/2024 ADDENDUM STATUS: COMPLETED Orders for labs placed by surg team are pending, pt also needs an ECG. Please ensure the pt completes preop testing at least a week prior to surgery date. /tristin/ JOSETTE FLEMING Physician Poultry Barn Manager, Anesthesiology Signed: 12/04/2024 07:33 Receipt Acknowledged By: 12/12/2024 13:10 /tristin/ PRAVIN TORRES RN Case Manager, Plastic Surgery 12/06/2024 ADDENDUM STATUS: COMPLETED Request MAC with IV Sedation. Surgical treatment plan is to use a field block at the wrist with Lidocaine 1% Plain and Marcaine 0.25% Plain and a forearm tourniquet. /boyd FRIED HOME THEATER EXPERIENCE EXPERT Signed: 12/06/2024 11:15 Receipt Acknowledged By: 12/10/2024 06:28 /tristin/ SYLVIA TODD MD Staff AnesthesiolgiJOSETTE Strickland [facility] Dec 06, 2024 11:15 AM ADDENDUM: LOCAL TITLE: Addendum STANDARD TITLE: ADDENDUM DATE OF NOTE: DEC 06, 2024@11:15:30 ENTRY DATE: DEC 06, 2024@11:15:32 AUTHOR: BRADLEY FRIED EXP COSIGNER: URGENCY: STATUS: COMPLETED Request MAC with IV Sedation. Surgical treatment plan is to use a field block at the wrist with Lidocaine 1% Plain and Marcaine 0.25% Plain and a forearm tourniquet. /boyd FRIED HOME THEATER EXPERIENCE EXPERT Signed: 12/06/2024 11:15 Receipt Acknowledged By: 12/10/2024 06:28 /tristin/ SYLVIA TODD MD Staff Anesthesiolgist --- Original Document --- 12/03/24 E-CONSULT ANESTHESIA STL: The reason for consult: Right carpal tunnel release I have reviewed pertinent CPRS documentation in the electronic medical record for this patient. The recommendations/findings offered are the result of information from the requesting provider and a chart review only. Asked by Dr. Rubio to evaluate and treat Ms. Bryan for her 6 month history of symptoms of right middle and long finger numbness, nocturnal dysthesias and weakness of the right hand not relieved with wrist splinting and the use of NSAI medications with documented right Carpal Tunnel Syndrome by EMG/NCV. Ms. Bryan reports that she had similar symptoms in the past which spontaneously resolved following her left open CTR. She requests right open CTR for treatment of her symptoms. She reports that she is RHD. She reports no neck pain or cervical radiculopathy. A 54 y/o female with h/o T2DM, HLD, LISA, anxiety, hypothyroidism and depression. Presents now with right carpal tunnel syndrome for right carpal tunnel release. Labs show K+ 4.1, Cr 1.11, BS 89, H/H = 12.4/38.4 Diagnosis and/or Impression: ASA 3 Plan for Dany block if appropriate or GA with LMA 11 minutes to 20 minutes spent reviewing patient's medical records /tristin/ SYLVIA TODD MD Staff Anesthesiolgist Signed: 12/03/2024 16:30 12/04/2024 ADDENDUM STATUS: COMPLETED Orders for labs placed by surg team are pending, pt also needs an ECG. Please ensure the pt completes preop testing at least a week prior to surgery date. /boyd NUNES PAC Physician Poultry Barn Manager, Anesthesiology Signed: 12/04/2024 07:33 Receipt Acknowledged By: * AWAITING SIGNATURE * PRAVIN TORRES CHRISTOPHER D [facility] Dec 04, 2024 07:31 AM ADDENDUM: LOCAL TITLE: Addendum STANDARD TITLE: ADDENDUM DATE OF NOTE: DEC 04, 2024@07:31:16 ENTRY DATE: DEC 04, 2024@07:31:16 AUTHOR: JOSETTE NUNES EXP COSIGNER: URGENCY: STATUS: COMPLETED Orders for labs placed by surg team are pending, pt also needs an ECG. Please ensure the pt completes preop testing at least a week prior to surgery date. /boyd NUNES PAC Physician Poultry Barn Manager, Anesthesiology Signed: 12/04/2024 07:33 Receipt Acknowledged By: 12/12/2024 13:10 /tristin/ PRAVIN TORRES, head of digital, Plastic Surgery --- Original Document --- 12/03/24 E-CONSULT ANESTHESIA STL: The reason for consult: Right carpal tunnel release I have reviewed pertinent CPRS documentation in the electronic medical record for this patient. The recommendations/findings offered are the result of information from the requesting provider and a chart review only. Asked by Dr. Rubio to evaluate and treat Ms. Bryan for her 6 month history of symptoms of right middle and long finger numbness, nocturnal dysthesias and weakness of the right hand not relieved with wrist splinting and the use of NSAI medications with documented right Carpal Tunnel Syndrome by EMG/NCV. Ms. Bryan reports that she had similar symptoms in the past which spontaneously resolved following her left open CTR. She requests right open CTR for treatment of her symptoms. She reports that she is RHD. She reports no neck pain or cervical radiculopathy. A 54 y/o female with h/o T2DM, HLD, LISA, anxiety, hypothyroidism and depression. Presents now with right carpal tunnel syndrome for right carpal tunnel release. Labs show K+ 4.1, Cr 1.11, BS 89, H/H = 12.4/38.4 Diagnosis and/or Impression: ASA 3 Plan for Dany block if appropriate or GA with LMA 11 minutes to 20 minutes spent reviewing patient's medical records /tristin/ SYLVIA TODD MD Staff Anesthesiolgist Signed: 12/03/2024 16:30 12/06/2024 ADDENDUM STATUS: COMPLETED Request MAC with IV Sedation. Surgical treatment plan is to use a field block at the wrist with Lidocaine 1% Plain and Marcaine 0.25% Plain and a forearm tourniquet. /tristin/ BRADLEY FRIED HOME THEATER EXPERIENCE EXPERT Signed: 12/06/2024 11:15 Receipt Acknowledged By: 12/10/2024 06:28 /tristin/ SYLVIA TODD MD Staff Anesthesiolgist JOSETTE NUNES [facility] Dec 03, 2024 04:26 PM CONSULT: LOCAL TITLE: E-CONSULT ANESTHESIA STL STANDARD TITLE: CONSULT DATE OF NOTE: DEC 03, 2024@16:26 ENTRY DATE: DEC 03, 2024@16:27 AUTHOR: SYLVIA TODD COSIGNER: URGENCY: STATUS: COMPLETED E-CONSULT ANESTHESIA STL Has ADDENDA The reason for consult: Right carpal tunnel release I have reviewed pertinent CPRS documentation in the electronic medical record for this patient. The recommendations/findings offered are the result of information from the requesting provider and a chart review only. Asked by Dr. Rubio to evaluate and treat Ms. Bryan for her 6 month history of symptoms of right middle and long finger numbness, nocturnal dysthesias and weakness of the right hand not relieved with wrist splinting and the use of NSAI medications with documented right Carpal Tunnel Syndrome by EMG/NCV. Ms. Bryan reports that she had similar symptoms in the past which spontaneously resolved following her left open CTR. She requests right open CTR for treatment of her symptoms. She reports that she is RHD. She reports no neck pain or cervical radiculopathy. A 54 y/o female with h/o T2DM, HLD, LISA, anxiety, hypothyroidism and depression. Presents now with right carpal tunnel syndrome for right carpal tunnel release. Labs show K+ 4.1, Cr 1.11, BS 89, H/H = 12.4/38.4 Diagnosis and/or Impression: ASA 3 Plan for Dany block if appropriate or GA with LMA 11 minutes to 20 minutes spent reviewing patient's medical records /tristin/ SYLVIA TODD MD Staff Anesthesiolgist Signed: 12/03/2024 16:30 12/04/2024 ADDENDUM STATUS: COMPLETED Orders for labs placed by surg team are pending, pt also needs an ECG. Please ensure the pt completes preop testing at least a week prior to surgery date. /tristin/ JOSETTE NUNES PAC Physician Poultry Barn Manager, Anesthesiology Signed: 12/04/2024 07:33 Receipt Acknowledged By: 12/12/2024 13:10 /tristin/ PRAVIN TORRES RN Case Manager, Plastic Surgery 12/06/2024 ADDENDUM STATUS: COMPLETED Request MAC with IV Sedation. Surgical treatment plan is to use a field block at the wrist with Lidocaine 1% Plain and Marcaine 0.25% Plain and a forearm tourniquet. /es/ BRADLEY FRIED HOME THEATER EXPERIENCE EXPERT Signed: 12/06/2024 11:15 Receipt Acknowledged By: 12/10/2024 06:28 /tristin/ SYLVIA TODD MD Staff Anesthesiolgist 12/16/2024 ADDENDUM STATUS: COMPLETED lab: 1 Dec CBC, CMP w/in acceptable limits The pt needs to have an ECG as previously noted, (order was entered) please have pt complete prior to surgery date. /tristin/ JOSETTE NUNES PAC Physician Poultry Barn Manager, Anesthesiology Signed: 12/16/2024 09:38 Receipt Acknowledged By: 12/17/2024 12:23 /tristin/ PRAVIN TORRES RN Case Manager, Plastic Surgery 12/22/2024 ADDENDUM STATUS: COMPLETED EC Dec NSR w/HR 79, poss anterior infarct age undetermined /tristin/ JOSETTE NUNES PAC Physician Poultry Barn Manager, Anesthesiology Signed: 12/22/2024 08:12 SYLVIA TODD [facility]
--- OUTSIDE RECORDS SUMMARY | 2025-02-25 10:24 | XMS_ITS ---
Author Name [facility] Address [address] [place] [address] Care Team Providers Care Renal Medicine Physician Name Role Phone ANN-MARIE HERNANDEZ Primary Care [...] USPS BASIC SELF Sep 17, 2024 33A [id number] [phone] LAWRENCE BRYAN PATIENT ANTHEM [employer] [place] FEP PREFERRED PROVIDER ORGANIZAT ION (PPO) USPS BASIC SELF Sep 17, 2024 33A [id number] [phone] LAWRENCE BRYAN PATIENT ANTHE[place] F[place] PREFERRED PROVIDER ORGANIZAT ION (PPO) USPS BASIC SELF Sep 17, 2024 33A [id number] [phone] LAWRENCE BRYAN PATIENT [place] F[place] PREFERRED PROVIDER ORGANIZAT ION (PPO) USPS BASIC SELF Sep 17, 2024 33A [id number] [phone] LAWRENCE BRYAN PATIENT [employer] FEP ([id number]) PRESCRIPT ION FEPRX Nov 26, 2021 [id number] [phone] LAWRENCE BRYAN PATIENT [employer] PREFERRED PROVIDER ORGANIZAT ION (PPO) BI-ST ATE SHAWN OPMEN T Sep 17, 2023 [id number] MATTIE SHERMAN RISTOPHER SPOUSE Selected Encounter This section includes the information on record at [place] for the Encounter. Date/Time Encounter Type Encounter Description Reason Provider Source Dec 26, 2024 01:00 PM OFFICE O/P EST MOD 30 MIN OPTOMETRY ICD-10-CM E11.9 Type 2 diabetes mellitus without complications CORTEZ BYRD Wilfred Encounter Template Text not used by [place] Assessments - Encounter Diagnoses This section includes the primary and secondary diagnoses documented for the Encounter. Date/Time Primary/Secondary Diagnosis Diagnosis Name Provider Source Jan 08, 2025 09:00 AM PRIMARY Type 2 diabetes mellitus without complications MYRTLE KNOTT [facility] Jan 08, 2025 09:00 AM SECONDARY Unspecified disorder of refraction MYRTLE KNOTT [facility] Plan of Treatment: Future Appointments (+ 6 months) and Future Tests (+/- 45 days) The Plan of Treatment section includes future care activities for the patient from all [place] treatmentfacilities. This section includes future appointments and future orders which are active, pending or scheduled. Future Appointments This section includes appointments that were scheduled to occur 6 months from the date of the Encounter, up to a maximum of 20 appointments. The data comes from all [place] treatment facilities. Appointment Date/Time Appointment Type Appointme nt Facility Name Jan 06, 2025 08:00 AM AMBULATORY - SURGERY [facility] February 03, 2025 11:40 AM AMBULATORY - SURGERY [facility] Active, Pending, and Scheduled Orders This section includes a listing of several types of active, pending, and scheduled orders, including clinic medications orders, diagnostic test orders, procedure orders and consult orders; where the start date of the order is 45 days before the date of the Encounter or 45 days after the date of theEncounter. The data comes from all [place] treatment facilities. Test Date/Time Test Type Test Details Facility Name Dec 22, 2024 12:00 AM Laboratory - Chemi stry Order TEST URINE (MA-STL) URINE YELLOW SP [facility] Lab Results: +/- 30 days of the encounter This section includes the Chemistry and Hematology Lab Results on record with [place] for the patient. Radiology Reports and Pathology Reports are provided separately, in subsequent sections. Lab Results This section contains the Chemistry/Hematology Results that were resulted 30 days before or 30 daysafter the date of the Encounter. Date/Time Source Result Type Result - Unit Interpretation Reference Range Specimen Type Comment Dec 24, 2024 10:54 AM [facility] GLUCOSE,BLOOD-poct (STL) BLOOD Specimen Type: BLOOD Comment: Test Performed by: [id number] Meter #: [id number] Ordering Provider: ANN-MARIE HERNANDEZ Report Released Date/Time: Dec 24, 2024 11:01 AM Reporting Lab: [address] [address] Performing Lab: [address] [address] GLUCOSE,BLOOD-poct (STL) 83 mg/dL 72-99 Dec 23, 2024 04:02 PM [facility] COVID-19 DIAGNOSTIC (FLU/RSV)(STL) NASOPHARYNX Spec imen Type: [...] Dec 23, 2024 02:34 PM Reporting Lab: [address] [place] [address] Performing Lab: [address] [address] INFLUENZA A NEG Negative INFLUENZA B NEG Negative COVID-19 (STL-PB) NEG Not Detected RSV (Cepheid) Negative Negative Dec 16, 2024 06:45 AM [facility] CBC BLOOD Specimen Type: BLOOD No comment entered. Ordering Provider: BRADLEY FRIED Report Released Date/Time: Nov 19, 2024 08:50 AM Reporting Lab: [address] [address] Performing Lab: [address] [address] WBC 5.5 10*3/uL 3.6-11.2 RBC 4.07 10*6/uL [...] 0.00-0. 20 Dec 16, 2024 06:45 AM [facility] COMPREHENSIVE METABOLIC PANEL PLASMA Specimen Type: PLASMA Comment: No hemolysis noted. VERIFIED BY REPEAT Ordering Provider: BRADLEY FRIED Report Released Date/Time: Nov 19, 2024 08:50 AM Reporting Lab: [place] [id number] Performing Lab: [facility] [address] [facility] [address] CREATININE 0.86 mg/dL 0.6-1.1 UREA NITROGEN 10.3 [...] ALL of a patient's completed or amended [place] Advance and Rescinded Directives. The entries below indicate that a directive exists for the patient, but an actual copy is not included with this document. The data comes from all [place] facilities. Date Advance Directives Provider Source Mar 21, 1996 ADVANCE DIRECTIVE HARJIT BURGOS [facility] Encounter Notes: All associated encounter notes This section contains the clinical notes associated to the Encounter. Date/Time Encounter Note(s) Provider Source Dec 26, 2024 12:20 PM OPTOMETRY NOTE: LOCAL TITLE: OPTOMETRY NOTE STANDARD TITLE: OPTOMETRY NOTE DATE OF NOTE: DEC 26, 2024@12:20 ENTRY DATE: DEC 26, 2024@12:20:12 AUTHOR: KATRINA BYRD EXP COSIGNER: URGENCY: STATUS: COMPLETED Last seen: 02/27/2024 CC: 1. 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 Diabetic Eye Exam last A1c 6.1% dx: couple years good control of BS Ocular meds: none Ocular ROS: 1. Diabetes without h/o Ocular Complications (+) abrasion OD from straw (pt unsure if conj or cornea) ~1996 (-) surgery/laser procedures Family OcHX: (-) blindness (-) glaucoma (-) AMD (-) RD (+) unknown- adopted Cardiovascular ROS: no change from problem & medication lists CPRS Problem list, medications and allergies reviewed: CPRS Serology for Diabetes GLUCOSE 74 mg/dL 01/10/2024 06:52 HGA1C 6.1 H % 01/10/2024 06:52 Cardiovascular BP: 115/77 (12/31/2023 09:41) Pulse: 79 (12/31/2023 09:41) Neuro: Orientation: Normal Psych: Mood/Affect: Normal Depression/suicide ideation: NO VISUAL ACUITY With correction Distance Visual Acuity OD: 20/20 OS: 20/25 Pupils PERRL OU (-)APD Confrontation: FTFC OU Extra-Ocular Muscles Full OU Externals/adnexa: Unremarkable OU LMRx: 02/27/2024 OD: +1.25-0.52a679 20/20 OS: +1.50-1.80n759 20/20 Add: +2.00 Refraction 12/26/2024 OD: +1.25 -0.75 x085 20/20 OS: +1.00 -0.75 x110 20/20 Add: +2.00 *Pt reports improvement w today's MRx in trial frame SLIT LAMP EXAMINATION Lids/Lashes/Lacrimal No blepharitis OU Conjunctiva/Sclera White/quiet OU Cornea Clear OU Ant Chamber Deep and quiet OU Iris Normal, (-)NVI OU Lens Clear OU Intraocular Pressures (Goldmann) 1 gtt fluress Date OD OS Time Meds 12/26/2024 16 16 1311 none RETINAL EVALUATION Undilated retinal exam *Pt defers dilation today d/t no road driver present Optic Nerve OD: 0.25 CDR Flat, pink, distinct (-)NVD OS: 0.30 CDR Flat, pink, distinct (-)NVD Vessels: 2/3 OU, (-)NVE OU Posterior Pole: OD: (-) Hemorrhages (-) exudates (-) cotton wool spots OS: (-) Hemorrhages (-) exudates (-) cotton wool spots Macula: OD: Flat, clear (-)CSME OS: Flat, clear (-)CSME Bernice Knott, Optometry Tile Setter participated in the care of this under my supervision. I personally examined the patient and provided the following assessment and plan: Assessment/Plan 12/26/2024 1. Diabetes without Ocular Complications, OU - Last A1c 6.1% - No CSME/DME - Advised patient to keep HgA1c below 7% to reduce the risk of vision loss associated with diabetes. - Monitor annually w DFE 2. Refractive Error/Presbyopia - BCVA 20/20 - Order new glasses, consult placed Pt edu on all findings and given the opportunity to have questions answered RTC 12 mo CEE or sooner WESLEY /tristin/ KATRINA BYRD China Painter Signed: 12/29/2024 08:46 KATRINA BYRD [facility]
--- OUTSIDE RECORDS SUMMARY | 2025-02-25 10:24 | XMS_ITS | Referral Summary ---
Author Organization [facility] Address [address] [place] [address] Care Team Providers Care Family Advocate Name Role Phone Aicha Cuello MD Primary Care Provider Mariola Suarez Unavailable [phone] Jm Boyle MD Unavailable [phone] Vincnet Byrd MD Unavailable [phone] Encounters Date Type Department Care Team Description 12/23/2024 Orders Only [facility] Obstetrics and Gynecology [address] [facility] [address] 7[address] [place] [address] Isaura Olivares MD 12/22/2024 1:00 PM CDT Office Visit [facility] Obstetrics and Gynecology [address] [facility] 1st Floor [address] [place] [address] Isaura Olivares MD Low libido (Primary Dx); Vaginal atrophy from Last 3 Months Allergies Active Allergy Reactions Criticality Noted Date [...] (300 mg total) by mouth every morning Active docusate sodium (Colace) 100 mg capsuleIndications:cons [...] 2 (two) times a day as needed Active semaglutide (OZEMPIC) 2 mg/dose (8 mg/3 [...] Referring provider: Dr. Dayron Real Ms. Armida Villegas is a 50-year-old with a lung nodule. 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 [...] Date Resolved Date Postoperative pain 05/10/2020 5 Immunizations Immunization Administration Dates Next Due Adenovirus [...] Inactivated 08/24/1992 Varicella 07/19/2017,07/31/2015 ZOSTER Recombinant 11/23/2023,07/13/2023 Social History Tobacco Use Types Packs/Day Years [...] on file Legal Sex Female 10:50 PM REAL ESTATE BROKER ASSOCIATE Gender Identity Female 10/15/2018 11:21 AM REAL ESTATE BROKER ASSOCIATE Sexual Orientation Not on file Occupation Industry Job Start Date Job End Date long term Not on file Not on file Not on file Last Filed Vital Signs Vital Sign Reading Time Taken Comments Blood Pressure 143/81 12/22/2024 1:20 PM CDT Pulse 97 12/22/2024 1:20 PM CDT Temperature 37 C (98.6 F) 10/28/2024 10:45 AM REAL ESTATE BROKER ASSOCIATE Respiratory Rate 18 10/28/2024 10:45 AM REAL ESTATE BROKER ASSOCIATE Oxygen Saturation 100% 05/01/2024 12:10 PM CDT Inhaled Oxygen Concentration - - Weight 86.7 kg (191 lb 1.6 oz) 12/22/2024 1:20 P M CDT Height 163.4 cm (5' 4.33) 12/22/2024 1:20 PM CD T Body Mass Index 32.47 12/22/2024 1:20 PM CDT Plan of Treatment Not on file Procedures Procedure Name Priority Date/Time Associated Diagnosis [...] HEPATITIS C ANTIBODY Routine 11/25/2021 2:33 PM REAL ESTATE BROKER ASSOCIATE Screening for STD (sexually transmitted disease) THINPREP TIS PAP AND HR HPV DNA REFLEX GENOTYPES 16,18 Routine 11/18/2021 4:58 PM REAL ESTATE BROKER ASSOCIATE from Last 3 Months or Most Recently [...] 4 AM CDT 04/17/2024 12:37 PM CDT Telly Gonsalez MD LAB BLOOD ORDERABLES Fi nal Result [facility] Department [place] [address] * (ABNORMAL) POCT hemoglobin A1c (04/17/2024 11:09 AM CDT) Hgb A1C, POC 6.0(H) 4.0 - 5.6 % Est Average Gluc POC 126 mg/dL [facility] Comment: The ADA recommends reporting an estimated Average Glucose (eAG) with all Hemoglobin A1c results using the equation derived from a study of 507 normal and diabetic adults. Minority populations were underrepresented and children were not included. (Diabetes Care 31:8854-8375, 2008). The eAG is not equivalent to a fasting glucose. Blood 04/17/2024 11:0 9 AM CDT 04/17/2024 11:09 AM CDT Isaura Olivares MD POINT OF CARE TEST ROGER MCCLENDON Final Result Performing Organization Address City/[facility]/ZIP Co de Phone Number [facility] Department [place] [address] * Albumin Creatinine Ratio, Urine (03/28/2023 3:11 [...] MD LAB URINE ORDERABLES Zora l Result Performing Organization Address City/[facility]/ZIP Co de Phone Number [employer] [facility] [address] [place] [address] * Lipid panel (05/12/2022) Blood specimen (specimen) us Toña Sandoval MD LAB BLOOD ORDERABLES Zora l Result Performing Organization Address City/[facility]/ZIP Co de Phone Number [facility] * SCREENING MAMMOGRAM BILATERAL W LISA (01/09/2022 3:51 PM CDT) Anatomical Region Laterality Modality Breast Bilateral Mammography Narrative 01/12/2022 12:28 PM CDT Mammogram Technique: Bilateral Digital Breast Tomosynthesis, Bilateral C-view 2D Screening mammogram. Views obtained: bilateral craniocaudal and bilateral mediolateral oblique. Computer Aided Detection was performed. Mammogram Findings: The present examination has been compared to prior imaging studies performed at [facility] on 10/29/2015, and at [facility]. [place], [place] on 10/11/2018 and 12/15/2020. There are [...] compared to prior imaging studies performed at [facility] on 10/29/2015,and at [facility]. [place], [place] on 10/11/2018 and 12/15/2020. There are scattered areas of fibroglandular density. There is no suspicious abnormality in either breast. Impression: There is no mammographic evidence of malignancy. Annual screening mammography is recommended. OVERALL FINAL ASSESSMENT: BI-RADS CATEGORY 1: Negative. Linn Gómez NP IM MAMMO PROCEDURES Final Result * Hepatitis C antibody (11/25/2021 2:33 PM REAL ESTATE BROKER ASSOCIATE) Hep C Ab NON-REACTI VE NON-REACT DANELLE [facility] SIGNAL TO CUT-OFF 0.04 <1.00 [facility] Comment: HCV antibody was non-reactive. There is no laboratory evidence of HCV infection. In most cases, no further action is required. However, if recent HCV exposure is suspected, a test for HCV RNA (test code 90932) is suggested. For additional information please refer to http://[email or web address]/faq/IBU35o0 (This link is being provided for informational/ educational purposes only.) Blood specimen (specimen) 11/25/2021 2:33 PM REAL ESTATE BROKER ASSOCIATE 11/25/2021 2:34 PM REAL ESTATE BROKER ASSOCIATE Linn Gómez NP LAB MICROBIOLOGY - G ENERAL ORDERABLES Final Result [facility] [address] [address] * THINPREP TIS PAP AND HR HPV DNA REFLEX GENOTYPES 16,18 (11/18/2021 4:58 PM REAL ESTATE BROKER ASSOCIATE) CLINICAL INFORMATION: SCREENING PERIMENOPAUSAL [facility] LMP 11/02/2021 [facility] Previous Pap INFORMATION NOT PROVIDED [facility] Prev. Bx INFORMATION NOT PROVIDED [facility] SOURCE: Cervix, Endocervix [facility] Pap, specimen adequacy Satisfactory for evaluation. Endocervical/mckee sformation zone component present. Solid Sound [facility] HPV interp Negative for intraepithelial lesion or malignancy. [employer] COMMENTS This Pap test has been evaluated with computer assisted technology. [facility] Retail Shift Supervisor MMW, CT(ASCP) CT screening location: [place] [address] [facility] Comment [facility] Comment: EXPLANATORY NOTE: The Pap is [...] E6/E7 Not Detected NOT DETECTED [facility] Comment: Not Detected High Risk HPV types (16,18,31,33,35,39,45,51,52, 56,58,59,66,68) were not detected. Other HPV types which cause anogenital lesions may be present. The significance of the other types of HPV in malignant processes has not been established. Methodology: Real Time PCR 11/18/2021 4:58 PM REAL ESTATE BROKER ASSOCIATE 11/21/2021 5:31 AM REAL ESTATE BROKER ASSOCIATE Linn Gómez NP LAB CYTOLOGY ORDERAB LES Final Result [facility] [address] [place] [address] [facility] [address] [place] [address] from Last 3 Months or Most Recently Relevant to Health Maintenance Insurance [facility] Care Teams Family Advocate Relationship Specialty Start Date End Date Aicha Cuello MD [address] [place] [address] PCP - General Family Practice 10/15/18 Mariola Suarez PA [facility] [place] [address] Physician Water Pollution Control Technician Dermatology 04/22/21 Jm Boyle MD [address] [place] [address] Senior Logistics Manager Dermatology 04/22/21 Vincent Byrd MD [address] [place] [address] Consulting Physician Plastic Surgery 12/05/22
--- OUTSIDE RECORDS SUMMARY | 2025-02-25 10:24 | XMS_ITS ---
Author Organization [facility] [employer] ([id number]) Address [address] [place] [address] Care Team Providers Care Supervisor Home Energy Consultant Name Role Phone Aicha Cuello Primary Care Provider UnavailZackery Lakhani Unavailable [phone] Rashid Palafox Unavailable [phone] REASON FOR VISIT SCIT - Traditional Schedule Allergy Immunotherapy Medications Medication SIG (Take, Route, Frequency, Duration) Notes Start Date End Date Status Famotidine 40 MG 1 tab(s) orally 30 m ins prior to SCIT for 90 days Not-Ta liya Sertraline HCl 50 MG 1 tab(s) orally onc e a day for 30 day(s) 10/12/2021 Not-Taking FLUoxetine HCl 40 MG 1 cap(s) orally onc e a day for 30 day(s) 10/12/2021 Not-Taking Gabapentin 300 MG for 30 No t-Taking Montelukast Sodium 10 MG 1 tab(s) orally once a day for 30 day(s) Not-Taking Pioglitazone HCl 15 MG 1 tab(s) orally o nce a day for 30 day(s) 10/12/2021 Active Montelukast Sodium 10 MG 1 tab(s) orally once a day for 30 day(s) Active Auvi-Q 0.3 MG/0.3ML as directed intramuscularly once for 30 days Active Ezetimibe 10 MG 1 tab(s) orally once a day for 30 day(s) 10/12/2021 Active Rosuvastatin Calcium 10 MG 1 tab(s) orally once a day for 30 day(s) 10/12/2021 Active Ozempic (1 MG/DOSE) 4 MG/3ML as directed Subcutaneous Act mary lou Fexofenadine HCl 180 MG 1 tab(s) orally Daily for 30 day(s) Active Fluticasone Propionate 50 MCG/ACT 2 spray(s) in each nostril BID for 30 day(s) Not-Ta liya SIT (TRADITIONAL) variable per schedule SC per schedule for to be determined Active Wellbutrin XL 300 MG 1 tablet in the mor sahara Orally Once a day Active FEXOFENADINE 180 mg 1 tab(s) orally Ramona y for 30 day(s) Active FLUTICASONE NASAL 50 mcg/inh 2 spray(s) in each nostril BID for 30 day(s) Active AUVI -Q 0.3 mg as directed intramuscularly once for 30 days Active NASAL WASHES N/A as directed intranas ally as needed for 30 Active MONTELUKAST 10 mg 1 tab(s) orally once a day for 30 day(s) Active Famotidine 40 mg 1 tab(s) orally 30 m ins prior to SCIT for 30 days Active Encounters Encounter Location Date Provider Diagnosis [facility] [address] [place] [address] 02/24/2025 Rashid Palafox Allergic rhinitis due to pollen J30.1 ; Other allergic rhinitis J30.89 ; Allergic rhinitis due to animal (cat) (dog) hair and dander J30.81 and Other chronic allergic conjunctivitis H10.45 Assessments Encounter Date Diagnosis (ICD Code) Assessment Notes Treatment Notes Treatment Clinical Notes Section Notes 02/24/2025 Allergic rhinitis due to pollen (ICD-10 - J30.1) 02/24/2025 Other allergic rhinitis (ICD-10 - J30.89) 02/24/2025 Allergic rhinitis due to animal (cat) (dog) hair and dander (ICD-10 - J30.81) 02/24/2025 Other chronic allergic conjunctivitis (ICD-10 - H10.45) Plan Of Treatment Next Appt Details Follow Up: 1 Week, Reason: Provider Name:Rashid Palafox , 03/24/2025 03:40:00 PM, [address] [place], [address], Provider Name:Anita london, 03/25/2025 03:30:00 PM, [address] [place], [address], Progress Notes * Shant DAVISraDOB:1970 (54 yo F)Acc No.[id number]:02/24/2025 SCIT-Aeroallergen Patient: Armida JONES Provider: Nayeli Palafox MD :1970 A ge:54 Y S ex:Female Date:02/24/2025 Address:[address] [place], [place] [id number] Pcp:Aicha Cuello Subjective: * Chief Complaints: * S CIT - Traditional Schedule Allergy Immunotherapy * HPI: * Introduction: The patient is [...] immunotherapy) is on file. * Medical History: * Surgical History: * Hospitalization/Major Diagno stic Procedure: * Medications: T akingFamotidine 40 mg tablet 1 tab(s) orally 30 mins prior to SCIT Famotidine 40 mg tablet 1 tab(s) orally 30 mins prior to SCIT FEXOFENADINE 180 mg tablet 1 tab(s) orally Daily FLUTICASONE NASAL 50 mcg/inh spray 2 spray(s) in each nostril BID MONTELUKAST 10 mg tablet 1 tab(s) orally once a day AUVI -Q 0.3 mg kit as directed intramuscularly once NASAL WASHES N/A 1 quart of sterilized tap water or distilled water, 1 tsp NaCl, 1 pinch of baking soda as directed intranasally as needed SIT (TRADITIONAL) variable see record per schedule SC per schedule Wellbutrin XL 300 MG Tablet Extended Release 24 Hour 1 tablet in the morning Orally Once a day Ozempic (1 MG/DOSE) 4 MG/3ML Solution Pen-injector as directed Subcutaneous Fexofenadine HCl 180 MG Tablet 1 tab(s) orally Daily Montelukast Sodium 10 MG Tablet 1 tab(s) orally once a day Pioglitazone HCl 15 MG Tablet 1 tab(s) orally once a day Ezetimibe 10 MG Tablet 1 tab(s) orally once a day Rosuvastatin Calcium 10 MG Tablet 1 tab(s) orally once a day Auvi-Q 0.3 MG/0.3ML Solution Auto-injector as directed intramuscularly once Taking Famotidine 40 mg tablet 1 tab(s) orally 30 mins prior to SCIT Taking Famotidine 40 mg tablet 1 tab(s) orally 30 mins prior to SCIT Taking FEXOFENADINE 180 mg tablet 1 tab(s) orally Daily Taking FLUTICASONE NASAL 50 mcg/inh spray 2 spray(s) in each nostril BID Taking MONTELUKAST 10 mg tablet 1 tab(s) orally once a day Taking AUVI -Q 0.3 mg kit as directed intramuscularly once Taking NASAL WASHES N/A 1 quart of sterilized tap water or distilled water, 1 tsp NaCl, 1 pinch of baking soda as directed intranasally as needed Taking SIT (TRADITIONAL) variable see record per schedule SC per schedule Taking Wellbutrin XL 300 MG Tablet Extended Release 24 Hour 1 tablet in the morning Orally Once a day Taking Ozempic (1 MG/DOSE) 4 MG/3ML Solution Pen-injector as directed Subcutaneous Taking Fexofenadine HCl 180 MG Tablet 1 tab(s) orally Daily Taking Montelukast Sodium 10 MG Tablet 1 tab(s) orally once a day Taking Pioglitazone HCl 15 MG Tablet 1 tab(s) orally once a day Taking Ezetimibe 10 MG Tablet 1 tab(s) orally once a day Taking Rosuvastatin Calcium 10 MG Tablet 1 tab(s) orally once a day Taking Auvi-Q 0.3 MG/0.3ML Solution Auto-injector as directed intramuscularly once Not-Taking/PRNFluticasone Propionate 50 MCG/ACT Suspension 2 spray(s) in each nostril BID FLUoxetine HCl 40 MG Capsule 1 cap(s) orally once a day Gabapentin 300 MG Capsule Montelukast Sodium 10 MG Tablet 1 tab(s) orally once a day Famotidine 40 MG Tablet 1 tab(s) orally 30 mins prior to SCIT Sertraline HCl 50 MG Tablet 1 tab(s) orally once a day Not-Taking/PRN Fluticasone Propionate 50 MCG/ACT Suspension 2 spray(s) in each nostril BID Not-Taking/PRN FLUoxetine HCl 40 MG Capsule 1 cap(s) orally once a day Not-Taking/PRN Gabapentin 300 MG Capsule Not-Taking/PRN Montelukast Sodium 10 MG Tablet 1 tab(s) orally once a day Not-Taking/PRN Famotidine 40 MG Tablet 1 tab(s) orally 30 mins prior to SCIT Not-Taking/PRN Sertraline HCl 50 MG Tablet 1 tab(s) orally once a day Objective: * Vitals: Assessment: * Assessment: 1. A llergic rhinitis due to pollen - J30.1 (Primary) 2 . O ther allergic rhinitis - J30.89 3 . A llergic rhinitis due to animal (cat) (dog) hair and dander - J30.81 4 . O ther chronic allergic conjunctivitis - H10.45 Plan: * Treatment: * Procedure Codes: 9 5117 IMMUNOTHERAPY INJECTIONS * Follow Up: 1 Week * Billing Information: * Visit Code: * Procedure Codes: 50152 IMMUNOTHERAPY INJECTIONS. * Sign off status: Completed true * Provider: Nayeli Palafox MD Date: 02/24/2025 Generated for Magi weathers/Yoel/April on: 02/25/2025 10:24 AM CDT History and Physical Notes * HPI [...]
--- OUTSIDE RECORDS SUMMARY | 2025-02-25 10:25 | XMS_ITS | Data Portability ---
Author Organization [facility] TERRIEladio Address [address] [place] [address] Assessment No assessment recorded. Plan of Treatment Reminders Order Date Submit Date Provider Last Modified By Organization Details Last Modified Time Details Appointments None recorded. Lab HbA1c (hemoglobi n A1c), blood 2017 018 [employer] [facility] (Lab), [address], [place], [address], 8 15:53:41 hepatitis panel (A+B+C), acute, serum 2017 018 [facility] [address], [place], [address], 8 15:53:41 CMP, serum or plasma 2017 018 [facility] ([facility]), [address], [place], [address], 8 15:53:41 HbA1c (hemoglobi n A1c), blood 2016 017 [employer] [facility] (Lab), [address], [place], [address], 7 06:17:11 CMP, serum or plasma [address] [facility] (Lab), [address], [place], [address], 7 06:17:10 lipid panel w/ direct LDL, serum [address] [facility] (Lab), [address], [place], [address], 7 06:17:11 glucose, fingerstic k, blood 2016 017 [email or web address] In-Office Order, Internal Use Only DO Not Attach Compendium DO Not Attach Compendium, Do Not Delete/merge, [id number] 09:38:46 TSH, serum or plasma [address] [facility] (Lab), [address], [place], [address], 7 20:33:[address] [facility] (Lab), [address], [place], [address], 7 18:59:07 CMP, serum or plasma [address] [facility] (Lab), [address], [place], [address], 7 20:38:54 HbA1c (hemoglobi n A1c), blood [address] [facility] (Lab), [address], [place], [address], 7 08:29:52 lipid panel w/ direct LDL, serum [address] [facility] (Lab), [address], [place], [address], 7 20:38:34 Referral None recorded. Procedures None recorded. Surgeries None recorded. Imaging None recorded. Medication Orders metformin 500 mg tablet 2017 018 [id number], [address], [place], [place], [id number], 8 15:53:02 atorvastat in 40 mg tablet 2017 018 INTERFACE [facility][id number], [address], [place], [place], [id number], 8 15:52:48 metformin 500 mg tablet 2016 017 [facility]FACE [facility] #[id number], [address], [place], [place], [id number], 7 10:53:05 atorvastat in 40 mg tablet 2016 017 [facility] #[id number], [address], [place], [place], [id number], 7 10:53:05 atorvastat in 40 mg tablet 2016 017 INTERFACE [facility] #[id number], [address], [place], [place], [id number], 7 11:53:24 metformin 500 mg tablet 2016 017 [facility]FACE [facility] #[id number], [address] , [place], [place], [id number], 7 11:53:30 Patient TargetsNo targets recorded. Patient Instructions Encounter Date Encounter Id Patient Instructions Last Modified By Organization Details Last Modified Time 02/07/2017 [id number] When You Want to Lose Weight: Care Instructions Not available 02/07/2017 12:48:13 learning about type 2 diabetes Not available 02/07/2017 12:48:13 type 2 diabetes: care instructions Not available 02/07/2017 12:48:13 hypothyroidism: care instructions Not available 02/07/2017 12:48:13 high cholesterol : care instructions Not available 02/07/2017 12:48:13 obtain old records hold meds for now. [email or web address] Not available 02/07/2017 12:05:58 03/09/2017 [id number] When You Want to Lose Weight: Care Instructions Not available 03/09/2017 14:09:16 learning about type 2 diabetes Not available 03/09/2017 14:09:15 type 2 diabetes: care instructions Not available 03/09/2017 14:09:16 hypothyroidism: care instructions Not available 03/09/2017 14:09:16 high cholesterol : care instructions Not available 03/09/2017 14:09:16 06/12/2017 [id number] When You Want to Lose Weight: Care Instructions Not available 06/12/2017 11:49:57 hypothyroidism: care instructions Not available 06/12/2017 11:49:57 high cholesterol : care instructions Not available 06/12/2017 11:49:56 refused flu vaccine [email or web address] Not available 06/12/2017 10:52:15 12/04/2017 [id number] When You Want to Lose Weight: Care Instructions balbarcha Not available 12/04/2017 15:51:57 learning about type 2 diabetes balbarcha Not available 12/04/2017 15:51:57 type 2 diabetes: care instructions balbarcha Not available 12/04/2017 15:51:57 high cholesterol : care instructions balbarcha Not available 12/04/2017 15:51:57 Reason for Referral None Reported. Results Created Date Observation Date Name Description Value Unit Range Abnormal Flag Note LastModifiedBy Organization Detail LastModifiedTime 03/09/20 17 03/09/2017 gluco se, finge rstic k, blood Blood Glucose: mg/dl 105 Not Available In-Off ice Order Internal Use Only DO Not Attach Compendium DO Not Attach Compendium, Do Not Delete/merge, [id number] 03/09/2017 11:38:35 02/08/20 17 02/07/2017 CBC WBC 6.7 K/uL 3.4-10 .8 Not Available Steve [facility] (Lab) [address] [facility], [place], [address], 02/07/2017 18:59:07 02/08/20 17 02/07/2017 CBC red blood count 4.5 M/uL 4.2-5. 4 Not Available Steve [facility] (Lab) [address] [place], [address], 02/07/2017 18:59:07 02/08/20 17 02/07/2017 CBC hemoglobin 13.1 g/dL 11.5-1 5.5 Not Available [facility] (Lab) [address] [place], [address], 02/07/2017 18:59:07 02/08/20 17 02/07/2017 CBC hematocrit 39.8 % 36.0-4 8.0 Not Available [facility] (Lab) [address] [place], [address], 02/07/2017 18:59:07 02/08/20 17 02/07/2017 CBC MCV 88 fL 80-95 Not Available [facility] (Lab) [address] [facility], [place], [address], 02/07/2017 18:59:07 02/08/20 17 02/07/2017 CBC MCHC 33 g/dL 32-36 Not Available [facility] (Lab) [address] [place], [address], 02/07/2017 18:59:07 02/08/20 17 02/07/2017 CBC platelets 304 K/uL 155-37 9 Not Available [facility] (Lab) [address] [facility], [place], [address], 02/07/2017 18:59:07 02/08/20 17 02/07/2017 CBC RDW 13.4 % 11.5-1 4.5 Not Available [facility] (Lab) [address] [place], [address], 02/07/2017 18:59:07 02/08/20 17 02/07/2017 TSH, serum or plasm a TSH 1.34 uIU/m L 0.50-4 .50 Not Available [facility] (Lab) [address] [place], [address], 02/07/2017 20:33:48 02/08/20 17 02/07/2017 lipid panel w/ direc t LDL, serum cholestrol 313.0 mg/dL 140.0- 200.0 high Not Available [facility] (Lab) [address] [place], [address], 02/07/2017 20:38:34 02/08/20 17 02/07/2017 lipid panel w/ direc t LDL, serum triglyceride s 227 mg/mL 150-19 9 high Not Available [facility] (Lab) [address] [facility], [place], [address], 02/07/2017 20:38:34 02/08/20 17 02/07/2017 lipid panel w/ direc t LDL, serum HDL cholesterol 51.0 mg/dL 40.0-1 00.0 Not Available [facility] (Lab) [address] [facility], [place], [address], 02/07/2017 20:38:34 02/08/20 17 02/07/2017 lipid panel w/ direc t LDL, serum LDL direct 242 mg/dL <=100 high Not Available [facility] (Lab) [address] [place], [address], 02/07/2017 20:38:34 02/08/20 17 02/07/2017 lipid panel w/ direc t LDL, serum cholhdl 6.10 mg/dL 0.00-4 .98 high Not Available [facility] (Lab) [address] [facility], [place], [address], 02/07/2017 20:38:34 02/08/20 17 02/07/2017 CMP, serum or plasm a glucose, serum 104 mg/dL 65-99 high Not Available [facility] (Lab) [address] [place], [address], 02/07/2017 20:38:54 02/08/20 17 02/07/2017 CMP, serum or plasm a BUN 9 mg/dL 8-26 Not Available [facility] (Lab) [address] [place], [address], 02/07/2017 20:38:54 02/08/20 17 02/07/2017 CMP, serum or plasm a creatinine, serum 0.60 mg/dL 0.50-1 .40 Not Available [facility] (Lab) [address] [facility], [place], [address], 02/07/2017 20:38:54 02/08/20 17 02/07/2017 CMP, serum or plasm a BUN/creatnin e ratio 15.0 Not Available [facility] (Lab) [address] [facility], [place], [address], 02/07/2017 20:38:54 02/08/20 17 02/07/2017 CMP, serum or plasm a sodium, serum 140.0 mEq/L 136.0- 144.0 Not Available [facility] (Lab) [address] [place], [address], 02/07/2017 20:38:54 02/08/20 17 02/07/2017 CMP, serum or plasm a potassium, serum 4.3 mmol/ L 3.5-5. 3 Not Available [facility] (Lab) [address] [place], [address], 02/07/2017 20:38:54 02/08/20 17 02/07/2017 CMP, serum or plasm a chloride, serum 100 mmol/ l 101-11 1 low Not Available [facility] (Lab) [address] [place], [address], 02/07/2017 20:38:54 02/08/20 17 02/07/2017 CMP, serum or plasm a carbon dioxide total 23.8 mmol/ L 21.0-3 2.0 Not Available [facility] (Lab) [address] [place], [address], 02/07/2017 20:38:54 02/08/20 17 02/07/2017 CMP, serum or plasm a aniongp 21.0 mmol/ L Not Available [facility] (Lab) [address] [place], [address], 02/07/2017 20:38:54 02/08/20 17 02/07/2017 CMP, serum or plasm a calcium, serum 9.3 mg/dL 8.2-10 .0 Not Available [facility] (Lab) [address] [place], [address], 02/07/2017 20:38:54 02/08/20 17 02/07/2017 CMP, serum or plasm a total protein 7.3 g/dL 6.7-8. 2 Not Available [facility] (Lab) [address] [place], [address], 02/07/2017 20:38:54 02/08/20 17 02/07/2017 CMP, serum or plasm a albumin, serum 4.6 g/dL 3.5-5. 5 Not Available [facility] (Lab) [address] [place], [address], 02/07/2017 20:38:54 02/08/20 17 02/07/2017 CMP, serum or plasm a agratio 1.7 Not Available [facility] (Lab) [address] [place], [address], 02/07/2017 20:38:54 02/08/20 17 02/07/2017 CMP, serum or plasm a bilt 0.6 mg/dL 0.2-1. 0 Not Available [facility] (Lab) [address] [place], [address], 02/07/2017 20:38:54 02/08/20 17 02/07/2017 CMP, serum or plasm a AST 56.0 U/L 10.0-4 2.0 high Not Available [facility] (Lab) [address] [place], [address], 02/07/2017 20:38:54 02/08/20 17 02/07/2017 CMP, serum or plasm a ALT 66.0 U/L 10.0-6 0.0 high Not Available [facility] (Lab) [address] [place], [address], 02/07/2017 20:38:54 02/08/20 17 02/07/2017 CMP, serum or plasm a alk phos 78.0 IU/L 42.0-1 21.0 Not Available [facility] (Lab) [address] [place], [address], 02/07/2017 20:38:54 02/08/20 17 02/07/2017 CMP, serum or plasm a osmol 278.0 mOsm/ L 275.0- 301.0 Not Available [facility] (Lab) [address] [place], [address], 02/07/2017 20:38:54 02/08/20 17 02/07/2017 CMP, serum or plasm a eGFR, AM 140 m/lmi n/1.7 3_m >=60 Not Available [facility] (Lab) [address] [place], [address], 02/07/2017 20:38:54 02/08/20 17 02/07/2017 CMP, serum or plasm a eGFR, non- AM 116 mL/mi n/1.7 3/m >=60 Not Available [facility] (Lab) [address] [facility], [place], [address], 02/07/2017 20:38:54 02/08/20 17 02/08/2017 TSH, serum or plasm a TSH 1.400 uIU/m L 0.450- 4.500 Not Available [facility] (Lab) [address] [place], [address], 02/08/2017 08:27:45 02/08/20 17 02/08/2017 TSH, serum or plasm a T4,free(dire ct) 1.12 NG/dL 0.82-1 .77 Not Available [facility] (Lab) [address] [place], [address], 02/08/2017 08:27:45 02/08/20 17 02/08/2017 HbA1c (hemo globi n A1c), blood hemoglobin A1C 6.8 % 4.8-5. 6 high . Pre-d iabet es: 5.7 - 6.4 Diabe sj: >6.4 Glyce waleska contr ol for adult s with diabe sj: <7.0 Not Available [facility] (Lab) [address], [place], [address], 02/08/2017 08:29:52 06/12/2006/13/2017 CMP, serum or plasm a glucose, serum 106 mg/dL 65-99 above high normal Not Available [facility] ([facility]) [address] [place], [address], 2017 06:17:10 06/12/2006/13/2017 CMP, serum or plasm a BUN 9 mg/dL 6-24 Not Available [facility] ([facility]) [address] [place], [address], 2017 06:17:10 06/12/2006/13/2017 CMP, serum or plasm a creatinine, serum 0.59 mg/dL 0.57-1 .00 Not Available [facility] ([facility]) [address] [place], [address], 2017 06:17:10 06/12/2006/13/2017 CMP, serum or plasm a eGFR if nonafricn AM 112 mL/mi n/1.7 3 >59 Not Available [facility] ([facility]) [address] [place], [address], 2017 06:17:10 06/12/2006/13/2017 CMP, serum or plasm a eGFR if africn AM 129 mL/mi n/1.7 3 >59 Not Available [facility] ([facility]) [address] [place], [address], 2017 06:17:10 06/12/2006/13/2017 CMP, serum or plasm a BUN/creatini ne ratio 15 9-23 Not Available [facility] ([facility]) [address] [place], [address], 2017 06:17:10 06/12/2006/13/2017 CMP, serum or plasm a sodium, serum 139 mmol/ L 134-14 4 Not Available [facility] ([facility]) [address] [place], [address], 2017 06:17:10 06/12/2006/13/2017 CMP, serum or plasm a potassium, serum 4.3 mmol/ L 3.5-5. 2 Not Available [facility] ([facility]) [address] [place], [address], 2017 06:17:10 06/12/2006/13/2017 CMP, serum or plasm a chloride, serum 100 mmol/ L 96-106 Not Available [facility] ([facility]) [address] [place], [address], 2017 06:17:10 06/12/2006/13/2017 CMP, serum or plasm a carbon dioxide, total 22 mmol/ L 18-29 Not Available [facility] ([facility]) [address] [place], [address], 2017 06:17:10 06/12/2006/13/2017 CMP, serum or plasm a calcium, serum 9.3 mg/dL 8.7-10 .2 Not Available [facility] ([facility]) [address] [place], [address], 2017 06:17:10 06/12/2006/13/2017 CMP, serum or plasm a protein, total, serum 7.1 g/dL 6.0-8. 5 Not Available [facility] ([facility]) [address] [place], [address], 2017 06:17:10 06/12/20 17 2017 CMP, serum or plasm a albumin, serum 4.4 g/dL 3.5-5. 5 Not Available [facility] ([facility]) [address] [facility] [place], [address], 2017 06:17:10 06/12/20 17 2017 CMP, serum or plasm a globulin, total 2.7 g/dL 1.5-4. 5 Not Available [facility] ([facility]) [address] [facility] [place], [address], 2017 06:17:10 06/12/2006/13/2017 CMP, serum or plasm a A/G ratio 1.6 1.2-2. 2 Not Available [facility] ([facility]) [address] [facility] [place], [address], 2017 06:17:10 06/12/2006/13/2017 CMP, serum or plasm a bilirubin, total 0.6 mg/dL 0.0-1. 2 Not Available [facility] ([facility]) [address] [place], [address], 2017 06:17:10 06/12/2006/13/2017 CMP, serum or plasm a alkaline phosphatase, S 86 IU/L 39-117 Not Available [facility] ([facility]) [address] [place], [address], 2017 06:17:10 06/12/2006/13/2017 CMP, serum or plasm a AST (SGOT) 53 IU/L 0-40 above high normal Not Available [facility] ([facility]) [address] [place], [address], 2017 06:17:10 06/12/2006/13/2017 CMP, serum or plasm a ALT (SGPT) 73 IU/L 0-32 above high normal Not Available [facility] ([facility]) [address] [facility] [place], [address], 2017 06:17:10 06/12/20 17 2017 lipid panel , serum cholesterol, total 160 mg/dL 100-19 9 Not Available [facility] ([facility]) [address] [facility] [place], [address], 2017 06:17:11 06/12/20 17 2017 lipid panel , serum triglyceride s 137 mg/dL 0-149 Not Available [facility] ([facility]) [address] [facility] [place], [address], 2017 06:17:11 06/12/20 17 2017 lipid panel , serum HDL cholesterol 51 mg/dL >39 Not Available [facility] ([facility]) [address] [place], [address], 2017 06:17:11 06/12/20 17 2017 lipid panel , serum VLDL cholesterol gio 27 mg/dL 5-40 Not Available [facility] ([facility]) [address] [place], [address], 2017 06:17:11 06/12/20 17 2017 lipid panel , serum LDL cholesterol calc 82 mg/dL 0-99 Not Available [facility] ([facility]) [address] [place], [address], 2017 06:17:11 06/12/2006/13/2017 lipid panel , serum 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 6 above high normal Pre-d iabet es: 5.7 - 6.4 Diabe sj: >6.4 Glyce waleska contr ol for adult s with diabe sj: <7.0 Not Available [facility] ([facility]) [address], [place], [address], 2017 06:17:11 Result Notes None recorded. Problems Name Problem SNOMED Code Status Onset Date Resolution Date Notes Provider Name and Address Organization Details Recorded Time Liver enzymes level above reference range 916987125 Active 2017 Rush Lennon MD Attn: Gissell drew,[address] [facility], [place], [address], [facility] 8 15:52:02 Obesity 907311362 Active 2016 Rush Lennon MD Attn: Gissell drew,[address] [facility], [place], [address], [facility] 7 11:59:17 Hypothyroi dism 80530854 Active 2016 not on meds. not on meds for years Rush Lennon MD Attn: Gissell drew,[address] [facility], [place], [address], [facility] 7 11:59:37 Hyperlipid emia 97548418 Active 2016 recently diagnosed Rush Lennon MD Attn: Gissell russell,[address] [facility], [place], [address], [facility] 7 11:59:53 Type 2 diabetes mellitus 56513609 Active 2016 new onset / not on meds Rush Lennon MD Attn: Gissell russell,[address] [facility], [place], [address], [facility] 7 12:00:10 Problem Notes None recorded. Procedures Surgical History Date Name Laterality Status Provider Name and Address Organization Details Recorded Time Diabetic Foot Exam completed Altagracia Johnson MA [facility] 06/12/2017 10:26:52 Imaging Results None recorded. Procedure Notes None recorded. Medical Equipment None Reported. Allergies No known drug allergies Medications Name Sig Start Date Stop Date Status Note LastModified by Organization Details LastModified Time atorvastatin 40 mg tablet Take 1 tablet every day by oral route. 2017 active Not Available Not Available Not Avai lable metformin 500 mg tablet TAKE 1 TABLET BY MOUTH TWICE DAILY active Not Available Not Available No t Available alcohol swabs Apply 1 pad twice a day by topical route. 2016 active Not Available Not Available Not Avai lable Vitals Date Recorded Body height Body mass index (BMI) Body weight Heart rate Respiratory rate Body temperature Systolic blood pressure Diastolic blood pressure Provider Name and Address Organization Details Last Updated DateTime 8 162.56 cm 38.6 kg/m2 660814. 28 g 76 /min 24 /min 98.2 [degF] 110 mm[Hg] 80 mm[Hg] Altagracia Johnson MA [place] [facility] 8 15:30:11 Date Recorded Body height Body weight Body mass index (BMI) Heart rate Respiratory rate Body temperature Systolic blood pressure Diastolic blood pressure Provider Name and Address Organization Details Last Updated DateTime 7 162.56 cm 568964. 61 g 40.2 kg/m2 76 /min 24 /min 98.1 [degF] 128 mm[Hg] 80 mm[Hg] Altagracia Johnson MA [facility] 7 11:46:12 Date Recorded Body height Body mass index (BMI) Body weight Heart rate Respiratory rate Body temperature Systolic blood pressure Diastolic blood pressure Provider Name and Address Organization Details Last Updated DateTime 7 162.56 cm 40.9 kg/m2 243089. 98 g 76 /min 24 /min 98.5 [degF] 130 mm[Hg] 100 mm[Hg] Altagracia Johnson MA [place] [facility] 7 11:36:03 Date Recorded Body height Body mass index (BMI) Body weight Heart rate Respiratory rate Body temperature Systolic blood pressure Diastolic blood pressure Provider Name and Address Organization Details Last Updated DateTime 7 162.56 cm 40.2 kg/m2 979685. 61 g 76 /min 24 /min 98 [degF] 110 mm[Hg] 80 mm[Hg] Altagracia Johnson MA [facility] 7 10:18:13 Social History Question Answer Notes LastModified by Organizat ion Details LastModified Time Tobacco Smoking Status Never Smoker Altagracia Johnson MA null, [facility] 02/07/2017 11:50:02 Do You Have An Advance Directive? No Information not available 02/07/2017 What Is Your Level Of Caffeine Consumption? None Information not available 02/07/2017 How Much Tobacco Do You Chew? None Information not available 02/07/2017 What Type Of Diet Are You Following? REGULAR Information not available 02/07/2017 Which Illicit Or Recreational Drugs Have You Used? None Information not available 02/07/2017 Education Post Graduate Information not available 02/07/2017 Are There Any Guns Present In Your Home? Yes Information not available 02/07/2017 Hard Of Hearing Or Deaf In One Or Both Ears? No Information not available 02/07/2017 Legally Blind In One Or Both Eyes? No Information no t available 02/07/2017 Live Alone Or With Others? With Others Information not available 02/07/2017 How Many Children Do You Have? 2 Information not available 02/07/2017 Performs Monthly Self-breast Exam? Yes Information no t available 02/07/2017 Seat Belts Used Routinely Yes Information not available 02/07/2017 Are You Sexually Active? Yes Information not available 02/07/2017 Smoke Alarm In Home Yes Information not available 02/07/2017 Are You Passively Exposed To Smoke? No Information no t available 02/07/2017 General Stress Level Medium Information not available 02/07/2017 Do You Use Sunscreen Routinely? No Information not available 02/07/2017 Sex: Unknown Functional Status Question Answer Note LastModified by Organizat ion Details LastModified Time What is your level of alcohol consumption? Occasional Information not available 02/07/2017 Are you currently employed? Yes Information not available 02/07/2017 Are you able to care for yourself? 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 None Information not available 02/07/2017 Mental Status None recorded. Family History Nothing Reported. Medical History No medical history recorded. Gynecological HistoryNo gynecological history recorded. Obstetrics History GPAL:G 0 P 0 0 0 0 Past Encounters Encounter ID Performer Location Encounter Start Date Encounter Closed Date Diagnosis/Indication Diagnosis SNOMED-CT Code Diagnosis ICD10 Code Diagnosis Note [id number] Rush Lennon MD [facility] ([facility] [address] [place] [phone] 02/07/2017 11:23:41 02/13/2017 14:29:19 Type 2 diabetes mellitus 07505376 E11.9 newly diagnosedn ot on any meds.obtai n labs today Hyperlipidemia 74549832 E78.5 Hypothyroidism 77493342 E03.9 not on any meds. obtain TSH Obesity 121928654 E66.9 [id number] Rush Lennon MD [facility] (Adult/Fa m Med) [address] [place] [phone] 03/09/2017 11:27:15 03/12/2017 14:54:17 Diabetes mellitus 59624815 E11.9 discussed with pt Type 2 tanika betes mellitus 22751224 E11.9 Hyperlipidemia 23591289 E78.5 start Atorvastat in Hypothyroidism 81847949 E03.9 not on any meds. obtain TSH Obesity 378363384 E66.9 [id number] Rush Lennon MD [facility] (Adult/Fa m Med) [address] [place] [address] 06/12/2017 10:05:01 06/20/2017 12:16:02 Hyperlipidemia 93901075 E78.5 continue Atorvastat inlabs today Hypothyroidism 84716400 E03.9 not on any meds.jennifer l TSH Obesity 726415763 E66.9 diet/exerc ise Type 2 tanika betes mellitus 98822724 E11.9 continue meds. [id number] Rush Lennon MD [facility] (Adult/Fa m Med) [address] [place] [address] 12/04/2017 15:21:41 12/06/2017 11:48:54 Type 2 diabetes mellitus 19339209 E11.9 continue meds. Hyperlipidemia [id number] E78.5 continue Atorvastat inlabs today Obesity [id number] E66.9 diet/exerc ise Liver enzy mes level above reference range [id number] R74.8 secondary to Obesity/hy per;lipide estelle or statin. R/O viral.repe at labshepati tis profile Health Concerns Section Related Observation LastModified by Organization Detai ls LastModified Time None Recorded Concern Status LastModified by Organization Details LastModified Time None Recorded Advance Directives Directive N: Payers Encounter Date Sequence Insurance Name Policy Number Policy Ferreira Covered Member ID Ferreira Member ID Guarantor Name 02/07/2017 1 [id number] Armida Davis [id number] Armida Davis 03/09/2017 1 CIGRICHARD [id number] Armida Davis [id number] Armida Davis 06/12/2017 1 CIGRICHARD [id number] Armida Saenz [employer] [place] [id number] Armida Davis 12/04/2017 1 [employer] [id number] Armida Saenz [employer] [place] [id number] Armida Davis Notes Date Note Type Note Provider Name and Address Organization Details Recorded Time 02/07/2017 text/html no complaints Rush Lennon MD Attn: [address] [place], [address], [facility] 02/07/2017 12:06:29 03/09/2017 text/html F/U Rush Lennon MD Attn: [address] [place], [address], [facility] 03/09/2017 11:53:37 06/12/2017 text/html no new complaints Rush Lennon MD Attn: Accounting[address] [place], [address], [facility] 06/12/2017 10:53:47 12/04/2017 text/html no new complaints Rush Lennon MD Attn: [address]ing[address] [place], [address], [place] [facility] 12/04/2017 15:53:03 OBGyn Episode No OBEpisode recorded.
--- OUTSIDE RECORDS SUMMARY | 2025-02-25 10:25 | XMS_ITS | Encounter Summary ---
Author Name [facility] Organization [facility] Address [address] [place] [address] Care Team Providers Care Warehouse Unloader Name Role Phone ANN-MARIE HERNANDEZ Primary Care [...] USPS BASIC SELF Sep 17, 2024 33A [id number] [phone] LAWRENCE BRYAN PATIENT ANTHEM [employer] [place] FEP PREFERRED PROVIDER ORGANIZAT ION (PPO) USPS BASIC SELF Sep 17, 2024 33A [id number] [phone] LAWRENCE BRYAN PATIENT [place] [employer] [place] F[place] PREFERRED PROVIDER ORGANIZAT ION (PPO) USPS BASIC SELF Sep 17, 2024 33A [id number] [phone] LAWRENCE BRYAN PATIENT [employer] [place] FEP PREFERRED PROVIDER ORGANIZAT ION (PPO) USPS BASIC SELF Sep 17, 2024 33A [id number] [phone] LAWRENCE BRYAN PATIENT [employer] F[employer] ([id number]) PRESCRIPT ION FEPRX Nov 26, 2021 [id number] [phone] LAWRENCE BRYAN PATIENT [employer] PREFERRED PROVIDER ORGANIZAT ION (PPO) BI-ST KYLE ESCOBAR OPMEN T Sep 17, 2023 [id number] MATTIE SHERMAN [employer]SE Selected Encounter This section includes the information on record at [place] for the Encounter. Date/Time Encounter Type Encounter Description Reason Provider Source Dec 24, 2024 01:59 PM Outpatient Encounter ADMIN PAT ACTIVTIES (MASNONCT) NANETTE BARRERA Wilfred Encounter Template Text not used by [place] Plan of Treatment: Future Appointments (+ 6 months) and Future Tests (+/- 45 days) The Plan of Treatment section includes future care activities for the patient from all [place] [facility] This section includes future appointments and future orders which are active, pending or scheduled. Future Appointments This section includes appointments that were scheduled to occur 6 months from the date of the Encounter, up to a maximum of 20 appointments. The data comes from all [facility] facilities. Appointment Date/Time Appointment Type Appointme nt Facility Name Dec 26, 2024 01:00 PM AMBULATORY - SURGERY . [facility] Dec 31, 2024 10:00 AM AMBULATORY - SURGERY . [facility] Jan 06, 2025 08:00 AM AMBULATORY - SURGERY [facility] Feb 19, 2025 02:00 PM AMBULATORY - SURGERY [facility] Active, Pending, and [...] of theEncounter. The data comes from all [facility]. Test Date/Time Test Type Test Details Facility Name Dec 22, 2024 12:00 AM Laboratory - Chemi stry Order TEST URINE (MA-STL) URINE YELLOW SP [facility] Dec 24, 2024 01:42 PM Pharmacy - Clinic Medication Order [facility] Lab Results: +/- 30 days of [...] Range Comment Dec 24, 2024 10:54 AM [facility] GLUCOSE,BLOOD-poct (STL) Specimen Type: BLOOD Comment: Test Performed by: [id number] Meter #: [id number] Ordering Provider: ANN-MARIE HERNANDEZ Report Released Date/Time: Dec 24, 2024 11:01 AM Reporting Lab: [facility] [address] [facility] [address] Performing Lab: [place] [address] [facility] [address] GLUCOSE,BLOOD-p oct (STL) 83 mg/dL 72-99 Dec 23, 2024 04:02 PM [facility] COVID-19 DIAGNOSTIC (FLU/RSV)(L) Specimen Type: NASOPHARYNX Comment: Qualitative real-time PCR [...] Dec 23, 2024 02:34 PM Reporting Lab: [facility] [address] [facility] [address] Performing Lab: [place] [address] [facility] [address] INFLUENZA A NEG Negative INFLUENZA B NEG Negative COVID-19 (STL-PB) NEG Not Detected RSV (Cepheid) Negative Negative Dec 16, 2024 06:45 AM [facility] CBC Specimen Type: BLOOD No comment entered. Ordering Provider: FARRAH FRIED Report Released Date/Time: Nov 19, 2024 08:50 AM Reporting Lab: [address] [address] Performing Lab: [address] [address] WBC 5.5 10*3/uL 3.6-11.2 RBC 4.07 10*6/uL [...] 10*3/uL 0.00-0.20 Dec 16, 2024 06:45 AM [facility] COMPREHENSIVE METABOLIC PANEL Specimen Type: PLASMA Comment: No hemolysis noted. VERIFIED BY REPEAT Ordering Provider: FARRAH FRIED Report Released Date/Time: Nov 19, 2024 08:50 AM Reporting Lab: [address] [address] Performing Lab: [address] [address] CREATININE 0.86 mg/dL 0.6-1.1 UREA NITROGEN 10.3 [...] PM 98.3 72 150/80 15 96 0 [facility] Dec 24, 2024 10:30 AM 98.6 81 134/82 12 98 0 64 191.2 33 [facility] Advance Directives: All historical and current Section Date Range: From patient's date of to the date document was created. This section includes ALL of a patient's completed or amended [place] Advance and Rescinded Directives. The entries below indicate that a directive exists for the patient, but an actual copy is not included with this document. The data comes from all [place] facilities. Date Advance Directives Provider Source Mar 21, 1996 ADVANCE DIRECTIVE HARJIT BURGOS [facility] Encounter Notes: All associated encounter notes This section contains the clinical notes associated to the Encounter. Date/Time Encounter Note(s) Provider Source Dec 24, 2024 01:59 PM ANESTHESIOLOGY ESTEFANI WSHEET: LOCAL TITLE: PACU POST-OP FLOWSHEET ST STANDARD TITLE: ANESTHESIOLOGY FLOWSHEET DATE OF NOTE: DEC 24, 2024@13:59 ENTRY DATE: DEC 24, 2024@13:59:17 AUTHOR: NANETTE BARRERA COSIGNER: URGENCY: STATUS: COMPLETED Patient: ELISABETH BRYAN SSN: [id number] Anesthesia Method: - Monitored 12/24/2024 12:27 (Primary), Level Of Consciousness: Sedated, Monitors Applied, Oxygen Therapy: Mask, EtCO2 Verified: Waveform Positioning: Head Neutral, Head And Neck In Alignment With Spine, Pressure Points Padded & Checked, Eyes, Ears And Nose Free Of Pressure, Groin Free Of Pressure ASA Number: 2 Procedure: right carpal tunnel release Diagnosis: right carpal tunnel syndrome Carpal tunnel syndrome, right upper limb PACU Drugs: PACU Fluids: Anesthesia Procedure: ----- Procedure 12/24/2024 10:56 Line Number: 1, Level Of Consciousness: Awake, Site: Wrist, Laterality: Left, Catheter Type: Angio, Catheter Size: 20 Ga Procedure 12/24/2024 12:27 In Situ, Line Number: 1, Site: Hand, Laterality: Left, Catheter Type: Angio, Catheter Size: 20 Ga Securement: Taped, Sterile Occlusive Dressing Procedure 12/24/2024 12:52 Site: Upper Arm, Laterality: Right, Tourniquet Pressure (mmHg): 250 12:52 Tourniquet Inflated 13:01 Tourniquet Deflated Total Time: 00:09:18 Date of Operation: 12/24/2024 Anesthesia Care End: 12/24/2024 13:38 Resources: Aquacel foam placed on gabrielle prominence to protect skin during surgery Staff: --------- BRADLEY FRIED, SURGEON BRADLEY FRIED, ATT. SURGEON ANABEL PERDOMO, Holding Nurse NELLA CASTILLO, Holding Nurse LINDSEY BROWN PRIN. ANES. SRINIVASAN, JOHN, ANES. SUPER. DOOLEY, MARGARET, Post-Op Nurse Surgery Start Time: 12/24/2024 12:47 Procedure End Time: Moderate Sedation Care End: /es/ NANETTE CHUAN RN REGISTERED NURSE Signed: 12/24/2024 13:59 NANETTE BARRERA [facility]
--- OUTSIDE RECORDS SUMMARY | 2025-02-25 10:25 | XMS_ITS | Patient Health Record ---
Author Organization [facility] ([address]) Address [address] [place] [address] Care Team Providers Care Hydroponics Worker Name Role Phone Aicha Cuello Primary Care Provider UnavailZackery Lakhani Unavailable [phone] Rashid Palafox Unavailable [phone] [facility], Provider Unavailable Unavailab le Allergies No Known Allergies Reason For Referral No Information Medications Medication SIG (Take, Route, Frequency, Duration) Notes Start Date End Date Status FEXOFENADINE 180 mg 1 tab(s) orally Ramona y for 30 day(s) Active Pioglitazone HCl 15 MG 1 tab(s) orally o nce a day for 30 day(s) 10/12/2021 Active FLUTICASONE NASAL 50 mcg/inh 2 spray(s) in each nostril BID for 30 day(s) Active Ozempic (1 MG/DOSE) 4 MG/3ML as directed Subcutaneous Act mary lou Famotidine 40 MG 1 tab(s) orally 30 m ins prior to SCIT for 90 days Not-Tip nickerson Fexofenadine HCl 180 MG 1 tab(s) orally Daily for 30 day(s) Active Sertraline HCl 50 MG 1 tab(s) orally onc e a day for 30 day(s) 10/12/2021 Not-Taking Famotidine 40 mg 1 tab(s) orally 30 m ins prior to SCIT for 30 days Active Fluticasone Propionate 50 MCG/ACT 2 spray(s) in each nostril BID for 30 day(s) Not-Tip nickerson Montelukast Sodium 10 MG 1 tab(s) orally once a day for 30 day(s) Active AUVI -Q 0.3 mg as directed intramuscularly once for 30 days Active Auvi-Q 0.3 MG/0.3ML as directed intramuscularly once for 30 days Active NASAL WASHES N/A as directed intranas ally as needed for 30 Active FLUoxetine HCl 40 MG 1 cap(s) orally onc e a day for 30 day(s) 10/12/2021 Not-Taking FAMOTIDINE 40 mg 1 tab(s) orally 30 m ins prior to SCIT for 30 days Active SIT (TRADITIONAL) variable per schedule SC per schedule for to be determined Active Gabapentin 300 MG for 30 No t-Taking Wellbutrin XL 300 MG 1 tablet in the mor sahara Orally Once a day Active Montelukast Sodium 10 MG 1 tab(s) orally once a day for 30 day(s) Not-Taking Ezetimibe 10 MG 1 tab(s) orally once a day for 30 day(s) 10/12/2021 Active MONTELUKAST 10 mg 1 tab(s) orally once a day for 30 day(s) Active Rosuvastatin Calcium 10 MG 1 tab(s) orally once a day for 30 day(s) 10/12/2021 Active Immunizations Vaccine Route Administration Date Status Comme nts COVID-19 (Moderna) Unknown 08/04/2021 Administered Fluzone, quadrivalent, prese rvative free Unknown 08/04/2021 Administered Social History Tobacco Use: Social History Observation Description Date Details (start date - stop date) Never Smoker NA - NA Smoking Smart Form: Question Answer Notes Are you a: never smoker Tobacco Control (Standard) Question Answer Notes Tobacco use: Nonsmoker Problems Problem Type SNOMED Code ICD Code Onset Dates Problem Status W/U Status Risk Notes Problem Type II diabetes mellitus without complication (474198460) Type 2 diabetes mellitus without complications (E11.9) Active confirmed Problem Chronic allergic conjunctivitis (13975226) Other chronic allergic conjunctivitis (H10.45) Active confirmed Problem Allergic rhinitis caused by pollen (disorder) (81780343) Allergic rhinitis due to pollen (J30.1) Active confirmed Problem Allergic rhinitis (07527796) Other allergic rhinitis (J30.89) Active confirmed Problem Allergic rhinitis caused by pollen (disorder) (61388258) Allergic rhinitis due to pollen (J30.1) Active confirmed Problem Allergic rhinitis caused by animal hair and dander (695595633258243) Allergic rhinitis due to animal (cat) (dog) hair and dander (J30.81) Active confirmed Problem Allergic rhinitis (83399181) Other allergic rhinitis (J30.89) Active confirmed Problem Chronic allergic conjunctivitis (85489822) Other chronic allergic conjunctivitis (H10.45) Active confirmed Problem Eruption of skin (395101324) Rash and other nonspecific skin eruption (R21) Active confirmed Problem Elevated blood pressure reading without diagnosis of hypertension (776991757) Elevated blood-pressure reading, without diagnosis of hypertension (R03.0) Active confirmed Problem Pure hypercholesterolemia (378775832) Pure hypercholesterol emia, unspecified (E78.00) Active confirmed Vital Signs Oximetry 98 % 10/15/2024 Blood pressure diastolic 79 mm Hg 10/15/2024 Height 64 in 10/15/2024 Blood pressure systolic 119 mm Hg 10/15/2024 Weight 194 lbs 10/15/2024 BMI 33.3 kg/m2 10/15/2024 Encounters Encounter Location Date Provider Diagnosis [address] [address] 03/01/2024 Provider [facility] Allergic rhinitis due to pollen J30.[address] [address] 03/26/2024 Zackery Ho Allergic rhinitis du e to pollen J30.1 ; Allergic rhinitis due to animal (cat) (dog) hair and dander J30.81 ; Other allergic rhinitis J30.89 ; Other chronic allergic conjunctivitis H10.45 ; Rash and other nonspecific skin eruption R21 and Elevated blood-pressure reading, without diagnosis of hypertension R03.[address] [place] [address] 04/23/2024 Rashid Palafox Allergic rhinitis du e to pollen J30.1 ; Other allergic rhinitis J30.89 ; Allergic rhinitis due to animal (cat) (dog) hair and dander J30.81 and Other chronic allergic conjunctivitis H10.[address] [place] [address] 05/21/2024 Rashid Palafox Allergic rhinitis du e to pollen J30.1 ; Other allergic rhinitis J30.89 ; Allergic rhinitis due to animal (cat) (dog) hair and dander J30.81 and Other chronic allergic conjunctivitis H10.45 [facility] [place] [address] [facility] [place] [address] 08/18/2024 Rashid Palafox Allergic rhinitis du e to pollen J30.1 ; Other allergic rhinitis J30.89 ; Allergic rhinitis due to animal (cat) (dog) hair and dander J30.81 and Other chronic allergic conjunctivitis H10.45 [facility] - [place] [address] [facility] [place] [address] 10/01/2024 Rashid Palafox Allergic rhinitis du e to pollen J30.1 ; Other allergic rhinitis J30.89 ; Allergic rhinitis due to animal (cat) (dog) hair and dander J30.81 and Other chronic allergic conjunctivitis H10.45 [facility] - [place] [address] [facility] [place] [address] 10/15/2024 Zackery Ho Allergic rhinitis du e to pollen J30.1 ; Allergic rhinitis due to animal (cat) (dog) hair and dander J30.81 ; Other allergic rhinitis J30.89 ; Other chronic allergic conjunctivitis H10.45 ; Rash and other nonspecific skin eruption R21 and Elevated blood-pressure reading, without diagnosis of hypertension R03.0 [facility] - [place] [address] [facility] [place] [address] 10/22/2024 Rashid Palafox Allergic rhinitis du e to pollen J30.1 ; Other allergic rhinitis J30.89 ; Allergic rhinitis due to animal (cat) (dog) hair and dander J30.81 and Other chronic allergic conjunctivitis H10.45 [facility] - [place] [address] [facility] [place] [address] 10/29/2024 Rashid Palafox Allergic rhinitis du e to pollen J30.1 ; Other allergic rhinitis J30.89 ; Allergic rhinitis due to animal (cat) (dog) hair and dander J30.81 and Other chronic allergic conjunctivitis H10.45 [facility] [place] [address] [facility] [place] [address] 11/26/2024 Rashid Palafox Allergic rhinitis du e to pollen J30.1 ; Other allergic rhinitis J30.89 ; Allergic rhinitis due to animal (cat) (dog) hair and dander J30.81 and Other chronic allergic conjunctivitis H10.[address] [address] 12/30/2024 Rashid Palafox Allergic rhinitis du e to pollen J30.1 ; Other allergic rhinitis J30.89 ; Allergic rhinitis due to animal (cat) (dog) hair and dander J30.81 and Other chronic allergic conjunctivitis H10.[address] [address] 01/27/2025 Rashid Palafox Allergic rhinitis du e to pollen J30.1 ; Other allergic rhinitis J30.89 ; Allergic rhinitis due to animal (cat) (dog) hair and dander J30.81 and Other chronic allergic conjunctivitis H10.[address] [address] 02/24/2025 Rashid Palafox Allergic rhinitis du e to pollen J30.1 ; Other allergic rhinitis J30.89 ; Allergic rhinitis due to animal (cat) (dog) hair and dander J30.81 and Other chronic allergic conjunctivitis H10.45 Assessments Encounter Date Diagnosis (ICD Code) Assessment Notes Treatment Notes Treatment Clinical Notes Section Notes 03/01/2024 Allergic rhinitis due to pollen (ICD-10 - J30.1) 03/26/2024 Allergic rhinitis due to pollen (ICD-10 - J30.1) Armida clearly suffers from atopic disease based upon our skin testing and clinical history. Accordingly, we have introduced a new, aggressive medication regimen, discussed nasal washes and allergy-specific avoidance measures. Procedure tolerated today without large local or systemic reaction. Keep AIE on hand 2 hours after each SCIT visit. Again encouraged to triple premedicatie 30 minutes to 2 hours prior to SCIT. Zyrtec makes her drowsy so continue Allergra. She continues to feel benefit with SCIT, only with occassional sneezing jags. Increase SCIT in peak season PRN. Follow-up in 1 month for SCIT and 6 month evaluation and management 03/26/2024 Allergic rhinitis due to animal (cat) (dog) hair and dander (ICD-10 - J30.81) Follow allergen avoidance, meds and continue SCIT as an adjunctive treatment to current regimen 04/23/2024 Allergic rhinitis due to pollen (ICD-10 - J30.1) 05/21/2024 Allergic rhinitis due to pollen (ICD-10 - J30.1) 08/18/2024 Allergic rhinitis due to pollen (ICD-10 - J30.1) 10/01/2024 Allergic rhinitis due to pollen (ICD-10 - J30.1) 10/15/2024 Allergic rhinitis due to pollen (ICD-10 - J30.1) Armida clearly suffers from atopic disease based upon our skin testing and clinical history. Accordingly, we have introduced a new, aggressive medication regimen, discussed nasal washes and allergy-specific avoidance measures. Procedure tolerated today without large local or systemic reaction. Keep AIE on hand 2 hours after each SCIT visit. Again encouraged to triple premedicatie 30 minutes to 2 hours prior to SCIT. Zyrtec makes her drowsy so continue Allergra. She continues to feel benefit with SCIT, only with occassional sneezing jags. She has been on MM for over 2 year with minimal symptoms; reaching 3 years in June. Increase SCIT in peak season PRN. Follow-up per schedule for SCIT and 6 month evaluation and management 10/15/2024 Allergic rhinitis due to animal (cat) (dog) hair and dander (ICD-10 - J30.81) Follow allergen avoidance, meds and continue SCIT as an adjunctive treatment to current regimen 10/22/2024 Allergic rhinitis due to pollen (ICD-10 - J30.1) 10/29/2024 Allergic rhinitis due to pollen (ICD-10 - J30.1) 11/26/2024 Allergic rhinitis due to pollen (ICD-10 - J30.1) 12/30/2024 Allergic rhinitis due to pollen (ICD-10 - J30.1) 01/27/2025 Allergic rhinitis due to pollen (ICD-10 - J30.1) 02/24/2025 Allergic rhinitis due to pollen (ICD-10 - J30.1) 02/24/2025 Other allergic rhinitis (ICD-10 - J30.89) 01/27/2025 Other allergic rhinitis (ICD-10 - J30.89) 12/30/2024 Other allergic rhinitis (ICD-10 - J30.89) 11/26/2024 Other allergic rhinitis (ICD-10 - J30.89) 10/29/2024 Other allergic rhinitis (ICD-10 - J30.89) 10/22/2024 Other allergic rhinitis (ICD-10 - J30.89) 10/15/2024 Other allergic rhinitis (ICD-10 - J30.89) Follow allergen avoidance, meds and continue SCIT as an adjunctive treatment to current regimen 10/01/2024 Other allergic rhinitis (ICD-10 - J30.89) 08/18/2024 Other allergic rhinitis (ICD-10 - J30.89) 05/21/2024 Other allergic rhinitis (ICD-10 - J30.89) 04/23/2024 Other allergic rhinitis (ICD-10 - J30.89) 03/26/2024 Other allergic rhinitis (ICD-10 - J30.89) Follow allergen avoidance, meds and continue SCIT as an adjunctive treatment to current regimen 04/23/2024 Allergic rhinitis due to animal (cat) (dog) hair and dander (ICD-10 - J30.81) 03/26/2024 Other chronic allergic conjunctivitis (ICD-10 - H10.45) Given ocular signs and symptoms I encouraged allergy avoidance measures and meds as above. If symptoms persist, consider adding additional medications including intraocular antihistamine/ma st cell stabilizer, PRN and continue SCIT as an adjunctive measure 05/21/2024 Allergic rhinitis due to animal (cat) (dog) hair and dander (ICD-10 - J30.81) 08/18/2024 Allergic rhinitis due to animal (cat) (dog) hair and dander (ICD-10 - J30.81) 10/01/2024 Allergic rhinitis due to animal (cat) (dog) hair and dander (ICD-10 - J30.81) 10/15/2024 Other chronic allergic conjunctivitis (ICD-10 - H10.45) Given ocular signs and symptoms I encouraged allergy avoidance measures and meds as above. If symptoms persist, consider adding additional medications including intraocular antihistamine/ma st cell stabilizer, PRN and continue SCIT as an adjunctive measure 10/22/2024 Allergic rhinitis due to animal (cat) (dog) hair and dander (ICD-10 - J30.81) 10/29/2024 Allergic rhinitis due to animal (cat) (dog) hair and dander (ICD-10 - J30.81) 11/26/2024 Allergic rhinitis due to animal (cat) (dog) hair and dander (ICD-10 - J30.81) 12/30/2024 Allergic rhinitis due to animal (cat) (dog) hair and dander (ICD-10 - J30.81) 01/27/2025 Allergic rhinitis due to animal (cat) (dog) hair and dander (ICD-10 - J30.81) 02/24/2025 Allergic rhinitis due to animal (cat) (dog) hair and dander (ICD-10 - J30.81) 10/22/2024 Other chronic allergic conjunctivitis (ICD-10 - H10.45) 02/24/2025 Other chronic allergic conjunctivitis (ICD-10 - H10.45) 01/27/2025 Other chronic allergic conjunctivitis (ICD-10 - H10.45) 12/30/2024 Other chronic allergic conjunctivitis (ICD-10 - H10.45) 11/26/2024 Other chronic allergic conjunctivitis (ICD-10 - H10.45) 10/29/2024 Other chronic allergic conjunctivitis (ICD-10 - H10.45) 10/15/2024 Rash and other nonspecific skin eruption (ICD-10 - R21) Noted history of atopic dermatitis, generally to the arms and neck. Will typically treat with topical steroids per PCP. Last occurred 3 years ago. Continue to monitor 10/01/2024 Other chronic allergic conjunctivitis (ICD-10 - H10.45) 08/18/2024 Other chronic allergic conjunctivitis (ICD-10 - H10.45) 05/21/2024 Other chronic allergic conjunctivitis (ICD-10 - H10.45) 04/23/2024 Other chronic allergic conjunctivitis (ICD-10 - H10.45) 03/26/2024 Rash and other nonspecific skin eruption (ICD-10 - R21) Noted history of atopic dermatitis, generally to the arms and neck. Will typically treat with topical steroids per PCP. Last occurred 3 years ago. Continue to monitor 03/26/2024 Elevated blood-pressure reading, without diagnosis of hypertension (ICD-10 - R03.0) BP elevated today without symptoms of urgency or emergency. Continue serial checks and follow-up with PCP 10/15/2024 Elevated blood-pressure reading, without diagnosis of hypertension (ICD-10 - R03.0) BP elevated today without symptoms of urgency or emergency. Continue serial checks and follow-up with PCP Plan Of Treatment Next Appt Details Provider Name:Rashid Douglas Javy , 03/24/2025 03:40:00 PM, [address] [place], [address], Provider Name:Anita london, 03/25/2025 03:30:00 PM, [address] [place], [address], Insurance Providers Payer Name Payer Address Payer Phone Subscriber Number Group Number Insured Name Patient Relationship to Insured Coverage Start Date Coverage End Date [facility] [address] [place] [address] [id number] Armida Davis Self - patient is the insured 2 Medical (General) History Medical History History ICD Code Type 2 diabetes mellitus without complic ations E11.9 Pure hypercholesterolemia, unspecified E 78.00 Allergic rhinitis due to pollen J30.1 Allergic rhinitis due to animal (cat) (d og) hair and dander J30.81 Other allergic rhinitis J30.89 Other chronic allergic conjunctivitis H1 0.45 Rash and other nonspecific skin eruption R21 Elevated blood-pressure reading, without diagnosis of hypertension R03.0 Surgical History Surgery Date(Month/Year) Gastric sleeve
--- OUTSIDE RECORDS SUMMARY | 2025-02-25 10:25 | XMS_ITS ---
Author Organization [facility] Address [address] [place], [place] [id number] Care Team Providers Care Housekeeping Associate Name Role Phone DIA ORTEGA Unavailable [phone] Aicha Cuello Unavailable Unavailable REASON FOR VISIT *Nail surgery follow-up Encounters Encounter Location Date Provider Diagnosis [facility] [address] [facility] [address] [place], [place] [id number] 11/12/2023 DIA ORTEGA Plan Of Treatment No Information Progress Notes * SINCERE BRYANOB:1970 (54 yo F)Acc No.[id number]:11/12/2023 Patient: Thaddeus DELA CRUZ ELISABETH Provider: Alfonso ORTEGA :1970 A ge:53 Y S ex:Female Date:11/12/2023 Address:[address] [place], [place] [id number] Subjective: * Chief Complaints: * 1 . *Nail surgery follow-up. * Medical History: Objective: * Vitals: Assessment: Plan: * Treatment: * Billing Information: * Visit Code: * Procedure Codes: * Electronic signature of LUCIANO ORTEGA DPM on 02/25/2025 at 10:25 AM CDT Sign off status: Pending * Provider: Alfonso ORTEGA Date: 0 11/12/2023 Generated for Magi weathers/Yoel/eTransmitting on: 0 02/25/2025 10:25 AM CDT
--- OUTSIDE RECORDS SUMMARY | 2025-02-25 10:25 | XMS_ITS | Encounter Summary ---
Author Organization [facility] Address [address] [place] [address] Care Team Providers Care Associate Account Director Name Role Phone Sari Cali MD Primary Care Provider Maryam Hilario MD Unavailable Reason for Visit * Diagnostic Imaging (Routine) - Closed Specialty Diagnoses / Procedures Referred By Renee pablo Referred To Contact Procedures Breast Imaging Screening Outside Reference Referral, Self Referral ID Status Reason Start Date Expiration Date Visits Re quested Visits Authorized [id number] Closed 01/12/2022 02/11/2023 1 1 Encounter Details Date Type Department Care Team (Late st Contact Info) Description 10/11/2018 Hospital Encounter [facility] [place] [address] Social History Tobacco Use Types Packs/Day Years [...] on file Legal Sex Female 10:50 PM LEATHER WHITENER Gender Identity Female 10/15/2018 11:21 AM LEATHER WHITENER Sexual Orientation Not on file Occupation Industry [...] SCREENING OUTSIDE REFERENCE Routine 10/11/2018 12:00 AM LEATHER WHITENER documented in this encounter Results * Breast Imaging Screening Outside Reference (10/11/2018 12:00 AM LEATHER WHITENER) Impressions RAD_MAMMO_[facility] - 01/12/2022 10:01 AM CDT These images are for Reference purposes only and have not been reviewed by [facility]. There will be no report generated by a [facility] Radiologist. Narrative RAD_MAMMO_[facility] - 01/12/2022 10:01 AM CDT EXAMINATION: Images For Reference Purposes Only us Self Referral IMG MAMMO PROCEDURES Final Resul t RAD_MAMMO_[facility] documented in this encounter Visit Diagnoses Not on filedocumented in this encounter Additional Health Concerns Infection Onset Date Last Indicated Resolved Time MRSA Comment:Germ watcher auto flagging 07/24/2013 07/24/201305/04 5:00 AM CDT documented as of this encounter Care Teams Associate Account Director Relationship Specialty Start Date End Date Sari Cali MD [address] [facility] [place] [address] [place] [address] PCP - General 01/15/17 10/14/18 Maryam Muller MD [address] [place] [address] Internal Medicine 02/14/17 10/14/18 documented as of this encounter
--- OUTSIDE RECORDS SUMMARY | 2025-02-25 10:25 | XMS_ITS | Encounter Summary ---
Author Name [facility] Address [address] [place] [address] Care Team Providers Care Composition Floor Layer Name Role Phone ANN-MARIE RUBIO Primary Care [...] USPS BASIC SELF Sep 17, 2024 [id number] [phone] LAWRENCE DAVIS PATIENT ANTHEM [employer] [place] FEP PREFERRED PROVIDER ORGANIZAT ION (PPO) USPS BASIC SELF Sep 17, 2024 [id number] [phone] LAWRENCE DAVIS PATIENT AN[place] [employer] [place] F[place] PREFERRED PROVIDER ORGANIZAT ION (PPO) USPS BASIC SELF Sep 17, 2024 [id number] [phone] LAWRENCE DAVIS PATIENT [employer] [place] FEP PREFERRED PROVIDER ORGANIZAT ION (PPO) USPS BASIC SELF Sep 17, 2024 [id number] [phone] LAWRENCE DAVIS PATIENT [employer] F[employer] ([id number]) PRESCRIPT ION FEPRX Nov 26, 2021 [id number] [phone] LAWRENCE DAVIS PATIENT [employer] PREFERRED PROVIDER ORGANIZAT ION (PPO) BI-ST ATE DEVEL OPMEN T Sep 17, 2023 [id number] MATTIE SHERMAN [employer]IST[employer]HER SPOUSE Selected Encounter This section includes the information on record at [place] for the Encounter. Date/Time Encounter Type Encounter Description Reason Provider Source Nov 19, 2024 08:30 AM OFFICE O/P NEW MOD 45 MIN PLASTIC SURGERY ICD-10-CM G56.01 Carpal tunnel syndrome, right upper limb MORGAN FRIED IHE Encounter Template Text not used by [place] Assessments - Encounter Diagnoses This section includes the primary and secondary diagnoses documented for the Encounter. 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 This section includes future appointments and future orders which are active, pending or scheduled. Future Appointments This section includes appointments that were scheduled to occur 6 months from the date of the Encounter, up to a maximum of 20 appointments. The data comes from all [facility]. Appointment Date/Time Appointment Type Appointme nt Facility Name Dec 23, 2024 03:30 PM AMBULATORY - MEDICINE [facility] Dec 24, 2024 10:30 AM AMBULATORY - NONE . DARSHANA Anatoliy [facility] Dec 26, 2024 01:00 PM AMBULATORY - SURGERY [facility] Jan 06, 2025 08:00 AM AMBULATORY - SURGERY [facility] February 03, 2025 11:40 AM AMBULATORY - SURGERY [facility] Active, Pending, and Scheduled Orders This section includes a listing of several types of active, pending, and scheduled orders, including clinic medications orders, diagnostic test orders, procedure orders and consult orders; where the start date of the order is 45 days before the date of the Encounter or 45 days after the date of theEncounter. The data comes from all [facility]. Test Date/Time Test Type Test Details Facility Name Dec 22, 2024 12:00 AM Laboratory - Chemi stry Order TEST URINE (MA-STL) URINE YELLOW SP [facility] Lab Results: +/- 30 days of the encounter This section includes the Chemistry and Hematology Lab Results on record with [place] for the patient. Radiology Reports and Pathology Reports are provided separately, in subsequent sections. Lab Results This section contains the Chemistry/Hematology Results that were resulted 30 days before or 30 daysafter the date of the Encounter. Date/Time Source Result Type Result - Unit Interpretation Reference Range Specimen Type Comment Dec 16, 2024 06:45 AM [facility] CBC BLOOD Specimen Type: BLOOD No comment entered. Ordering Provider: FARRAH FRIED Report Released Date/Time: Nov 19, 2024 08:50 AM Reporting Lab: [facility] [address] [facility] [address] Performing Lab: [place] [id number] [facility] [id number] WBC 5.5 10*3/uL 3.6-11.2 RBC 4.07 10*6/uL [...] 0.00-0. 20 Dec 16, 2024 06:45 AM [facility] COMPREHENSIVE METABOLIC PANEL PLASMA Specimen Type: PLASMA Comment: No hemolysis noted. VERIFIED BY REPEAT Ordering Provider: BRADLEY FRIED Report Released Date/Time: Nov 19, 2024 08:50 AM Reporting Lab: [address] [address] Performing Lab: [address] [address] CREATININE 0.86 mg/dL 0.6-1.1 UREA NITROGEN 10.3 [...] Pain Height Weight Body Mass Index Source Nov 19, 2024 08:33 AM 98 86 138/76 18 99 0 64 194.8 34 [facility] Advance Directives: All historical and current Section Date Range: From patient's date of to the date document was created. This section includes ALL of a patient's completed or amended [place] Advance and Rescinded Directives. The entries below indicate that a directive exists for the patient, but an actual copy is not included with this document. The data comes from all [place] facilities. Date Advance Directives Provider Source Mar 21, 1996 ADVANCE DIRECTIVE HARJIT BURGOS [facility] Encounter Notes: All associated encounter notes This section contains the clinical notes associated to the Encounter. Date/Time Encounter Note(s) Provider Source Nov 19, 2024 11:20 AM PLASTIC SURGERY CO NSULT: LOCAL TITLE: PLASTIC SURGERY CONSULT [facility] STANDARD TITLE: PLASTIC SURGERY CONSULT DATE OF NOTE: NOV 19, 2024@11:20 ENTRY DATE: NOV 19, 2024@11:20:43 AUTHOR: BRADLEY FRIED EXP COSIGNER: URGENCY: STATUS: COMPLETED PLASTIC SURGERY CONSULT [facility] Has ADDENDA Hankins identified self by: [x] Full Name [x] Reciting Date of [x] Full Social Security number SURGICAL SERVICE HISTORY & PHYSICAL The History & Physical must be completed within 30 days before the procedure and interval changes must be documented immediately prior to surgery. Attending: BRADLEY FRIED I am the attending physician. Chief Complaint: Symptomatic Right CTS HPI: Asked by Dr. Rubio to evaluate and treat Ms. Davis for her 6 month history of symptoms of right middle and long finger numbness, nocturnal dysthesias and weakness of the right hand not relieved with wrist splinting and the use of NSAI medications with documented right Carpal Tunnel Syndrome by EMG/NCV. Ms. Davis reports that she had similar symptoms in the past which spontaneously resolved following her left open CTR. She requests right open CTR for treatment of her symptoms. She reports that she is RHD. She reports no neck pain or cervical radiculopathy. ACTIVE MEDICAL PROBLEMS: 1) Diabetes Mellitus - Type II 2) THYROID GOITER 3) Hyperlipidemia (SCT [id number]) 4) Obstructive Sleep Apnea of Adult (SCT [id number]) 5) Hypothyroidism (SCT 24706890) PAST SURGICAL HISTORY: S/P Left Open CTR PROBLEM LIST 1) NKA 2) THYROID GOITER 3) Urinary Tract Infections 4) Contraception 5) Diabetes Mellitus Type 2 (SCT [id number]) 6) Hyperlipidemia (SCT 89065393) 7) Obstructive Sleep Apnea of Adult (SCT [id number]) 8) Anxiety (SCT 44670581) 9) Hypothyroidism (SCT 41610430) 10) Recurrent depression 11) Ulnar neuropathy of right arm Allergy review: (allergy or NKA) Patient has answered NKA Allergy list reviewed and remains current. ACTIVE MEDICATION: Active Outpatient Medications (including Supplies): BUPROPION HCL 300MG 24HR SA TAB TAKE ONE TABLET BY MOUTH ACTIVE ONCE A DAY SWALLOW WHOLE - DO NOT CRUSH OR CHEW. Indication: FOR DEPRESSION DOCUSATE NA 100MG CAP TAKE ONE CAPSULE BY MOUTH TWICE ACTIVE DAILY NEEDED HOLD FOR LOOSE STOOL/DIARRHEA. Indication: FOR SOFTENING STOOL EPI(EQV-ADRENACLICK)0.3MG/ 0.3ML INJCTR INJECT 1 PEN ACTIVE (0.3MG/0.3ML) INTRAMUSCULARLY ONE-TIME Indication: FOR ALLERGIC REACTION EZETIMIBE 10MG TAB TAKE ONE TABLET BY MOUTH ONCE A DAY ACTIVE Indication: FOR HIGH CHOLESTEROL NAPROXEN 500MG TAB TAKE ONE TABLET BY MOUTH TWICE A DAY ACTIVE TAKE WITH FOOD. Indication: FOR PAIN ROSUVASTATIN CA 20MG TAB TAKE ONE-HALF TABLET BY MOUTH ACTIVE EVERY EVENING Indication: FOR HIGH CHOLESTEROL Non-VA BUPROPION HCL 300MG 24HR SA TAB 300MG BY MOUTH ONCE ACTIVE A DAY Indication: FOR DEPRESSION Non-VA CHOLECALCIFEROL (LOW DOSE VIT D) - (OTC) TAB 125 BY ACTIVE MOUTH ONCE A DAY Indication: FOR VITAMIN D DEFICIENCY Non-VA EZETIMIBE 10MG TAB 10MG BY MOUTH ONCE A DAY ACTIVE Indication: FOR HIGH CHOLESTEROL Non-VA ROSUVASTATIN CA 20MG TAB 10MG BY MOUTH EVERY ACTIVE EVENING Indication: FOR HIGH CHOLESTEROL Non-VA SEMAGLUTIDE 0.25MG/0.375ML INJ PEN 3ML 0.5MG UNDER ACTIVE THE SKIN EVERY WEEK Indication: FOR DIABETES 11 Total Medications SOCIAL HISTORY: TOBACCO USE: No ALCOHOL USE No ILLICIT DRUG USE None HOME/HOUSING Patient lives: with family/others TRANSPORTATION No transportation issues noted FAMILY HISTORY: Degenerative Arthritis REVIEW OF SYSTEMS: A focused ROS was performed as mentioned in HPI. Other pertinent significant issues noted below: None Diagnostic Studies: NCV/EMG September 2024: 1. Right median neuropathy at the wrist - moderate severity without degenerative changes. 2. Right ulnar neuropathy across the elbow without degenerative changes. PHYSICAL EXAMINATION VITAL SIGNS Recorded in the Nursing Record. General>> Alert and oriented, No acute distress HENT>> Normocephalic EYE>> PERRL, EOMI Neck>> Supple Respiratory>> Non-labored respirations Cardiovascular>> Normal rate, Regular rhythm Musculoskeletal>> Normal ROM, Normal strength Integumentary>> Warm, Dry Psychiatric>> Cooperative, Appropriate mood & affect Neurologic>> Alert, Oriented, No focal deficits, CN II-XII intact MUSCULOSKELETAL EXAM: BILATERAL UPPER EXTREMITY EXAMINATION: Dermatologic: No abnormal skin lesions, wounds or healed lacerations/incisions. Vascular: Palpable Ulnar and radial pulses. Capillary refill to digits less than 2 sec. Lymphatic: No peripheral edema, no palpable epitrochlear or axillary adenopathy. Elbow Region: Negative Tinel's at cubital tunnel bilaterally. Forearm: There was a negative provocative maneuver for cubital tunnel syndrome, a negative provocative maneuver for pronator syndrome and radial tunnel syndrome Wrist: Carpal tunnel evaluation revealed (+) Tinel's and Phalens test on the right. There was no evidence of bilateral thenar and hypothenar muscle atrophy and thenar strength was 5/5. There is no evidence of tendon rupture, synovitis, or tenderness over the tendons or Judith's tubercle. Well healed scar palmar left wrist S/P Left Open CTR Hand: There were no areas of tenderness. Thumb: No triggering of the FPL tendon and no palpable nodule in the FPL tendon. Evaluation of the basal joint revealed no tenderness over the first carpometacarpal joint or scaphotrapezial joint. Grind test was negative. The metacarpal phalangeal joint was nontender and without laxity to medial or lateral stress. Fingers: Evaluation revealed no evidence of stenosing flexor tenosynovitis or triggering. Neurologic Examination Sensory: Light touch was intact in the median and ulnar nerve distribution for the left hand and diminished in the median nerve distribution for the right hand. Two-point Discrimination (MTP) Left Right Thumb 5 mm 7 mm Index 5 mm 7 mm Middle 5 mm 9 mm RRing 5 mm 9 mm URing 5 mm 7 mm Small 5 mm 7 mm ASSESSMENT: 1) Symptomatic Moderate Right Carpal Tunnel Syndrome 2) Mild Right Cubital Tunnel Syndrome by EMG/NCV 3) Diabetes Mellitus - Type II 4) THYROID GOITER 5) Hyperlipidemia (SCT 09781083) 6) Obstructive Sleep Apnea of Adult ([facility] [[email or web address]] [id number]) 7) Hypothyroidism ([facility] [[email or web address]] [id number]) PLAN: I discussed with Ms. Davis the anatomy, etiology and pathophysiology of carpal tunnel syndrome or median nerve compression at the wrist. Based upon my exam today and review of her EMG/NCV studies, I have recommended to Ms. Davis that we proceed with Open Right Carpal Tunnel release. I then discussed with Ms. Davis, the indications for surgical treatment, the limitations of treatment, the alternative treatments as well as the potential risks and complications of treatment. These include, but are not limited to: bleeding, infection, anesthetic, hypertrophic scarring, loss of digital sensation, persistent pain, CRPS (Complex Regional Pain Syndrome, recurrence of his symptoms, persistence of symptoms, hand weakness, hand stiffness, the need for post-operative hand therapy, the need for additional surgery/treatment. The [facility] Consent form was reviewed with and signed by Ms. Davis and myself. Her surgery will be performed in the Ambulatory OR. /es/ BRADLEY FRIED ORAL HEALTH THERAPIST Signed: 11/19/2024 11:39 11/19/2024 ADDENDUM STATUS: COMPLETED Hankins agreed to surgery. 12/24/24. informed presurgery instructions soon to follow. /es/ PRAVIN TORRES RN Case Manager, Plastic Surgery Signed: 11/19/2024 16:01 BRADLEY FRIED [facility]
--- OUTSIDE RECORDS SUMMARY | 2025-02-25 10:25 | XMS_ITS | Patient Health Record ---
Author Organization [facility] Address [address] [place], [place] [id number] Care Team Providers Care Tacking Stitch Remover Name Role Phone DIA ORTEGA Unavailable [phone] Aicha Cuello Unavailable Unavailable Allergies No Known Allergies Reason For Referral No Information Medications Medication SIG (Take, Route, Frequency, Duration) Notes Start Date End Date Status Rosuvastatin Calcium Active Bupropion & Diet Manage Prod Active Ezetimibe Active Plan Of Treatment No Information Insurance Providers Payer Name Payer Address Payer Phone Subscriber Number Group Number Insured Name Patient Relationship to Insured Coverage Start Date Coverage End Date [facility] ([facility]) ATTN CLAIMS [address] [place] [phone] [id number] ELISABETH BRYAN Self - patient is the insured Medical (General) History Medical History History ICD Code kidney stones Sleep apnea Diabetic
--- OUTSIDE RECORDS SUMMARY | 2025-02-25 10:25 | XMS_ITS | Encounter Summary ---
Author Name [facility] [place] Organization [facility] [place] [facility] [place] Address [address] [place] [address] Care Team Providers Care Agile Test Lead Name Role Phone ANN-MARIE HERNANDEZ Primary Care [...] USPS BASIC SELF Sep 17, 2024 33A [id number] [phone] LAWRENCE DAVIS PATIENT ANTHEM [employer] [place] F[place] PREFERRED PROVIDER ORGANIZAT ION (PPO) USPS BASIC SELF Sep 17, 2024 33A [id number] [phone] LAWRENCE DAVIS PATIENT ANTHEM [place] PREFERRED PROVIDER ORGANIZAT ION (PPO) USPS BASIC SELF Sep 17, 2024 33A [id number] [phone] LAWRENCE DAVIS PATIENT [place] F[place] PREFERRED PROVIDER ORGANIZAT ION (PPO) USPS BASIC SELF Sep 17, 2024 33A [id number] [phone] LAWRENCE DAVIS PATIENT [employer] FEP ([id number]) PRESCRIPT ION FEPRX Nov 26, 2021 [id number] [phone] LAWRENCE DAVIS PATIENT [employer] PREFERRED PROVIDER ORGANIZAT ION (PPO) BI-ST ATE DEVRICHARD OPMEN T Sep 17, 2023 [id number] MATTIE SHERMAN RISTOP SPOUSE Selected Encounter This section includes the information on record at [place] for the Encounter. Date/Time Encounter Type Encounter Description Reason Provider Source Dec 24, 2024 06:38 AM OFFICE O/P EST LOW 20 MIN PATIENT CARE IN [place] ICD-10-CM G56.01 Carpal tunnel syndrome, right upper limb MORGAN HUERTA IHE Encounter Template Text not used by [place] Assessments - Encounter Diagnoses This section includes the primary and secondary diagnoses documented for the Encounter. Date/Time Primary/Secondary Diagnosis Diagnosis Name Provider Source Jan 01, 2025 01:28 PM PRIMARY Carpal tunnel syndrome, right upper limb MORGAN HUERTA [facility] Plan of Treatment: Future Appointments (+ 6 months) and Future Tests (+/- 45 days) The Plan of Treatment section includes future care activities for the patient from all [place] treatmentfacilities. This section includes future appointments and future orders which are active, pending or scheduled. Future Appointments This section includes appointments that were scheduled to occur 6 months from the date of the Encounter, up to a maximum of 20 appointments. The data comes from all [place] treatment facilities. Appointment Date/Time Appointment Type Appointme nt Facility Name Dec 26, 2024 01:00 PM AMBULATORY - SURGERY [facility] Jan 06, 2025 08:00 AM AMBULATORY - SURGERY [facility] February 03, 2025 11:40 AM AMBULATORY - SURGERY [facility] Active, Pending, and Scheduled Orders This section includes a listing of several types of active, pending, and scheduled orders, including clinic medications orders, diagnostic test orders, procedure orders and consult orders; where the start date of the order is 45 days before the date of the Encounter or 45 days after the date of theEncounter. The data comes from all [place] treatment facilities. Test Date/Time Test Type Test Details Facility Name Dec 22, 2024 12:00 AM Laboratory - Chemi stry Order TEST URINE (MA-STL) URINE YELLOW SP [facility] Lab Results: +/- 30 days of the encounter This section includes the Chemistry and Hematology Lab Results on record with [place] for the patient. Radiology Reports and Pathology Reports are provided separately, in subsequent sections. Lab Results This section contains the Chemistry/Hematology Results that were resulted 30 days before or 30 daysafter the date of the Encounter. Date/Time Source Result Type Result - Unit Interpretation Reference Range Specimen Type Comment Dec 24, 2024 10:54 AM [facility] GLUCOSE,BLOOD-poct (STL) BLOOD Specimen Type: BLOOD Comment: Test Performed by: [id number] Meter #: [id number] Ordering Provider: ANN-MARIE HERNANDEZ Report Released Date/Time: Dec 24, 2024 11:01 AM Reporting Lab: [address] [address] Performing Lab: [address] [address] GLUCOSE,BLOOD-poct (STL) 83 mg/dL 72-99 Dec 23, 2024 04:02 PM [facility] COVID-19 DIAGNOSTIC (FLU/RSV)(STL) NASOPHARYNX Spec imen Type: [...] epidemiological information for final interpretation. Ordering Provider: RILEY HUERTA Report Released Date/Time: Dec 23, 2024 02:34 PM Reporting Lab: [address] [place] [address] Performing Lab: [address] [address] INFLUENZA A NEG Negative INFLUENZA B NEG Negative COVID-19 (STL-PB) NEG Not Detected RSV (Cepheid) Negative Negative Dec 16, 2024 06:45 AM [facility] CBC BLOOD Specimen Type: BLOOD No comment entered. Ordering Provider: RILEY HUERTA Report Released Date/Time: Nov 19, 2024 08:50 AM Reporting Lab: [address] [address] Performing Lab: [place] [id number] WBC 5.5 10*3/uL 3.6-11.2 RBC 4.07 10*6/uL [...] 0.00-0. 20 Dec 16, 2024 06:45 AM [facility] COMPREHENSIVE METABOLIC PANEL PLASMA Specimen Type: PLASMA Comment: No hemolysis noted. VERIFIED BY REPEAT Ordering Provider: RILEY HUERTA Report Released Date/Time: Nov 19, 2024 08:50 AM Reporting Lab: [address] [address] Performing Lab: [facility] [address] [address] CREATININE 0.86 mg/dL 0.6-1.1 UREA NITROGEN 10.3 [...] PM 98.3 72 150/80 15 96 0 [facility] Dec 24, 2024 10:30 AM 98.6 81 134/82 12 98 0 64 191.2 33 [facility] Advance Directives: All [...] Mar 21, 1996 ADVANCE DIRECTIVE HARJIT BURGOS [facility] Encounter Notes: All associated encounter notes This section contains the clinical notes associated to the Encounter. Date/Time Encounter Note(s) Provider Source Dec 24, 2024 06:53 AM PHYSICIAN EDUCATIO N DISCHARGE NOTE: LOCAL TITLE: DISCHARGE INSTRUCTIONS [facility] STANDARD TITLE: PHYSICIAN EDUCATION DISCHARGE NOTE DATE OF NOTE: DEC 24, 2024@06:53 ENTRY DATE: DEC 24, 2024@06:54:26 AUTHOR: RILEY HUERTA COSIGNER: URGENCY: STATUS: COMPLETED 1. DIAGNOSES: Other: Other (specify below) Carpal Tunnel Syndrome 2. FUTURE APPOINTMENT(S): *To reschedule [facility] appointments call and use extension below. date/time clinic phone number 12/24/24 10:30 am [facility]PRE-OP EVAL NURSING A [phone] 12/26/24 1:00 pm [facility]OPTOMETRY 01/06/25 08:00 am [facility]PLASTIC SURG MD 02/19/25 2:00 pm [facility] *This listing may be incomplete. Please refer to Appointment Mgmt. Listing for any additional patient appointments 3. DISCHARGE MEDICATIONS: Lortab 7.5 mg PO Q6h prn pain Resume all pre-operative medications as directed on the instructions. TO HELP YOU UNDERSTAND YOUR DRUG LIST ACTIVE ...means that you are presently taking these meds. SUSPENDED means that your prescription is active and in the mail order process. PENDING ..means that the medication has just been renewed, or, just ordered. HOLD .....means that the medication is active on your list, but will not be processed until pharmacy receives further instructions from you or your doctor to proceed with filling the prescription for delivery. NON-VA ...means you are getting the medication from somewhere besides the [place]. Active Outpatient Medications (including Supplies): Active Outpatient Medications Status 1) BUPROPION HCL 300MG 24HR SA TAB TAKE ONE TABLET BY MOUTH ACTIVE ONCE A DAY SWALLOW WHOLE - DO NOT CRUSH OR CHEW. Indication: FOR DEPRESSION 2) DOCUSATE NA 100MG CAP TAKE ONE CAPSULE BY MOUTH TWICE DAILY ACTIVE NEEDED HOLD FOR LOOSE STOOL/DIARRHEA. Indication: FOR SOFTENING STOOL 3) EPI(EQV-ADRENACLICK)0.3MG/ 0.3ML INJCTR INJECT 1 PEN ACTIVE [...] WEEK Indication: FOR DIABETES 10 Total Medications NEW MEDICATIONS (and indications): Lortab 7.5 mg PO Q6h prn pain The following changes were made to the medications you were taking prior to this hospitalization: None These medications have been stopped during your hospitalization (and reason why): None At your next appointment, please remember to bring all of your medication bottles with you Medication Reconciliation: I have discussed active and pending medications with the patient and/or managed care provider. I have made changes as appropriate............... ..NO 4. DISCHARGE INTRUCTIONAL MATERIALS *To be printed by Nurse and provided to patient Other (specify below) POST-OPERATIVE INSTRUCTIONS 1. Elevate right arm on a pillow so arm is above heart, when resting and elevate right arm above heart when ambulating. 2. May shower if right arm is covered with a Plastic Bag. 3. Remove surgical dressings to right hand on Sunday12-26-2024. May wash hand, but not immerse hand underwater. Cover incision when sleeping and away from home. 4. Limit us of right hand until office visit on 01-06-2025. Lift no more than 5 pounds and do not use a keyboard or knit/sew using right hand. 5. Take pain medication as directed. 6. Resume pre-operative medication following surgery. 7. Follow up Office Visit appointment Sunday01-06-2025 @ 0800 8. Call [phone] Sunday-Sunday Daytime or [phone] Nights and Weekends for any questions or concerns. 5. WOUND MANAGEMENT: Other (specify below) See Above 6. DISCHARGE DIETARY INSTRUCTIONS: No Dietary Instructions If you have questions, contact the dietitians at [phone]. 7. DISCHARGE PHYSICAL ACTIVITY INSTRUCTIONS: Other (specify below) See Discharge Instructions above 8. OTHER (Include employment status): Do not return to work until next Clinic Visit 9. WORSENING and/or DANGEROUS SYMPTOMS TO REPORT (Phys. entry required): Other (specify below) Increasing pain/swelling, excessive drainage from incision, increasing redness to the incision with red streaks up the arm, fever/chills. Specialist Information: Riley Huerta MD. [place] Cell Follow-up with your Primary Care Physician or Specialist or call [facility] Helpline: [phone] NOTE: If you are having feelings of Depression or Emotional Distress, or feel you just need to talk with someone, please call 3-5-9 PRESS 1. Copy Provided to Patient, Discussed with family/spouse /es/ RILEY HUERTA CREAM HAULER Signed: 12/24/2024 13:39 RILEY HUERTA [facility] Dec 24, 2024 06:49 AM SURGERY ATTENDING NOTE: LOCAL TITLE: ATTENDING SURGEON PREOPERATIVE STL STANDARD TITLE: SURGERY ATTENDING NOTE DATE OF NOTE: DEC 24, 2024@06:49 ENTRY DATE: DEC 24, 2024@06:49:42 AUTHOR: RILEY HUERTA COSIGNER: URGENCY: STATUS: COMPLETED Surgical H&P Date of Planned Procedure: Dec Surgical H&P Dated Dec reviewed on Dec Surgical H&P completed within 30 days of planned procedure: Yes Attending Surgeon Preoperative STL completed within 24 hours of procedure? Yes Changes noted to the H&P:NO I have seen and examined the patient and agree with the H&P, assessment and plan. YES Preoperative Findings/Diagnosis: Symptomatic Right Carpal Tunnel Syndrome Plan/Procedure: I again discussed with Ms. Davis the anatomy, etiology [...] therapy, the need for additional surgery/treatment. The iMed Consent form was again reviewed with Ms. Davis and was signed by Ms. Davis and myself on 11/19/2024. /tristin/ RILEY HUERTA CREAM HAULER Signed: 12/24/2024 11:50 RILEY HUERTA [facility] Dec 24, 2024 06:38 AM SURGERY ATTENDING PRE OPERATIVE E & M NOTE: LOCAL TITLE: GENERAL SURGERY PRE-OP HISTORY AND PHYSICAL STL STANDARD TITLE: SURGERY ATTENDING PRE OPERATIVE E & M NOTE DATE OF NOTE: DEC 24, 2024@06:38 ENTRY DATE: DEC 24, 2024@06:38:24 AUTHOR: RILEY HUERTAIGNER: URGENCY: STATUS: COMPLETED HPI: 54 YEAR OLD FEMALE Surgical History: Symptomatic Right Carpal Tunnel Syndrome, S/P Left Carpal Tunnel Release, presents today for Right Carpal Tunnel Release for treatment of symptomatic Right Carpal Tunnel syndrome. Due to symptoms of nasal congestion without fever or productive cough, underwent nasal swab 12/23/2024 which revealed negative screen for COVID/Influenza Type A/B, and RSV. ACTIVE MEDICAL PROBLEMS: 1) Diabetes Mellitus - Type II 2) THYROID GOITER 3) Hyperlipidemia ([facility] [id number]) 4) Obstructive Sleep Apnea of Adult ([facility] [id number]) 5) Hypothyroidism ([facility] [id number]) REVIEW OF SYSTEMS: A focused ROS was performed as mentioned in HPI. Other pertinent significant issues noted below: None Life Sustaining Treatment Orders Allergies: Patient has answered NKA Medications: Coumadin Dose: None Active Inpatient Medication: No medications found. Active Outpatient Medication: Active Outpatient Medications (including Supplies): Active Outpatient Medications Status 1) BUPROPION HCL 300MG 24HR SA TAB TAKE ONE TABLET BY MOUTH ACTIVE ONCE A DAY SWALLOW WHOLE - DO NOT CRUSH OR CHEW. Indication: FOR DEPRESSION 2) DOCUSATE NA 100MG CAP TAKE ONE CAPSULE BY MOUTH TWICE DAILY ACTIVE NEEDED HOLD FOR LOOSE STOOL/DIARRHEA. Indication: FOR SOFTENING STOOL 3) EPI(EQV-ADRENACLICK)0.3MG/ 0.3ML INJCTR INJECT 1 PEN ACTIVE [...] WEEK Indication: FOR DIABETES 10 Total Medications Outpatient medication list has been compared to the admission order medication list: there are no discrepancies Social: Lives with family Smoking Evaluation: Duration: Patient does not smoke. Alcohol: Current drinker: No Duration: IVDA: Current user: No Drug type: Physical Examination: Mobility: Independent HEENT: WNL Neck: WNL Breast: Deferred Back: within normal limits Lungs: WNL Cardiac: RRR Abdomen: WNL Rectal: Deferred Extremity: + for right CTS Pulses: Radial: Left: normal Right: normal Labs: CHEM 7: SODIUM 139 mEq/L 12/16/2024 06:45 POTASSIUM 3.8 mEq/L 12/16/2024 06:45 CHLORIDE 105 mEq/L 12/16/2024 06:45 UREA NITROGEN 10.3 mg/dL 12/16/2024 06:45 CREATININE 0.86 mg/dL 12/16/2024 06:45 CALCIUM 9.5 mg/dL 12/16/2024 06:45 CARBON DIOXIDE 26 mEq/L 12/16/2024 06:45 GLUCOSE 81 mg/dL 12/16/2024 06:45 EGFR (CKD-EPI 2020) 81.2 12/16/2024 06:45 WBC: 5.5 10*3/uL (12/16/24 06:45) HGB: HGB 11.4 g/dL 12/16/2024 06:45 HCT: 34.6 % (12/16/24 06:45) Platelets: PLT 274 10*3/uL 12/16/2024 06:45 Assessment: 1. Symptomatic Right Carpal Tunnel Syndrome 2. Negative Nasal Swab for negative screen for COVID/Influenza Type A/B, and RSV. Plan: I discussed with Ms. Davis the anatomy, [...] therapy, the need for additional surgery/treatment. The iMed Consent form was reviewed again with Ms. Davis and had been signed by Ms. Davis and myself on November 19, 2024. /tristin/ RILEY HUERTA CREAM HAULER Signed: 12/24/2024 11:49 RILEY HUERTA [facility]
--- OUTSIDE RECORDS SUMMARY | 2025-02-25 10:26 | XMS_ITS | Encounter Summary ---
Author Name [facility] [place] [facility] [place] [facility] [place] Address [address] [place] [address] Care Team Providers Care Epic Ambulatory Analyst Name Role Phone ANN-MARIE HERNANDEZ Primary Care [...] USPS BASIC SELF Sep 17, 2024 33A [id number] [phone] LAWRENCE BRYAN PATIENT ANTHEM [employer] [place] F[place] PREFERRED PROVIDER ORGANIZAT ION (PPO) USPS BASIC SELF Sep 17, 2024 33A [id number] [phone] LAWRENCE BRYAN PATIENT AN[place] PREFERRED PROVIDER ORGANIZAT ION (PPO) USPS BASIC SELF Sep 17, 2024 33A [id number] [phone] LAWRENCE BRYAN PATIENT [place] PREFERRED PROVIDER ORGANIZAT ION (PPO) USPS BASIC SELF Sep 17, 2024 33A [id number] [phone] LAWRENCE BRYAN PATIENT [employer] F[employer] ([id number]) PRESCRIPT ION FEPRX Nov 26, 2021 [id number] [phone] LAWRENCE BRYAN PATIENT [employer] PREFERRED PROVIDER ORGANIZAT ION (PPO) BI-ST ATE SHAWN OPMEN T Sep 17, 2023 [id number] MATTIE SHERMAN RISTOPHER SPOUSE Selected Encounter This section includes the information on record at [place] for the Encounter. Date/Time Encounter Type Encounter Description Reason Provider Source February 03, 2025 11:40 AM OFFICE O/P EST LOW 20 MIN PLASTIC SURGERY ICD-10-CM G56.00 Carpal tunnel syndrome, unspecified upper limb [facility] Encounter Template Text not used by [place] Assessments - Encounter Diagnoses This section includes the primary and secondary diagnoses documented for the Encounter. Date/Time Primary/Secondary Diagnosis Diagnosis Name Provider Source February 13, 2025 01:42 PM PRIMARY Carpal tunnel syndrome, unspecified upper limb GATO BENJAMIN [facility] Plan of Treatment: Future Appointments (+ 6 months) and Future Tests (+/- 45 days) The Plan of Treatment section includes future care activities for the patient from all [place] treatmentfacilities. This section includes future appointments and future orders which are active, pending or scheduled. Active, Pending, and Scheduled Orders This section includes a listing of several types of active, pending, and scheduled orders, including clinic medications orders, diagnostic test orders, procedure orders and consult orders; where the start date of the order is 45 days before the date of the Encounter or 45 days after the date of theEncounter. The data comes from all [place] treatment facilities. Test Date/Time Test Type Test Details Facility Name Dec 22, 2024 12:00 AM Laboratory - Chemi stry Order TEST URINE (MA-STL) URINE YELLOW SP [facility] Vital Signs: All taken on the encounter date This section contains inpatient and outpatient Vital Signs collected on the date of the Encounter. Date/Time Temperature Pulse Blood Pressure Respiratory Rate SP02 Pain Height Weight Body Mass Index Source February 03, 2025 11:52 AM 98.1 81 128/76 20 99 0 64 191 33 [facility] Advance Directives: All historical and current Section Date Range: From patient's date of to the date document was created. This section includes ALL of a patient's completed or amended [place] Advance and Rescinded Directives. The entries below indicate that a directive exists for the patient, but an actual copy is not included with this document. The data comes from all [place] facilities. Date Advance Directives Provider Source Mar 21, 1996 ADVANCE DIRECTIVE HARJIT BURGOS [facility] Encounter Notes: All associated encounter notes This section contains the clinical notes associated to the Encounter. Date/Time Encounter Note(s) Provider Source February 03, 2025 01:19 PM PLASTIC SURGERY NO TE: LOCAL TITLE: PLASTIC SURGERY LEG/FOOT ULCER ASSESSMENT STL STANDARD TITLE: PLASTIC SURGERY NOTE DATE OF NOTE: FEBRUARY 03, 2025@13:19 ENTRY DATE: FEBRUARY 03, 2025@13:19:36 AUTHOR: GATO BENJAMIN EXP COSIGNER: URGENCY: STATUS: COMPLETED This is a patient of Dr Martínez who had CTR on december.She is asymptomatic regarding carpal tunnel. She has very slight pain with direct palpation of scar which looks as it should at this point. We explained the three phases of healing and advise her this will improve w time ( she is still in the inflammatory phase) We released her back to work as of 02/02/25 with no restrictions. Advised her to call us with any questions of problems. /tristin/ GATO BENJAMIN PA-C, CWS Physician Service Officer, Plastic Surgery Signed: 02/03/2025 13:25 GATO BENJAMIN [facility] February 03, 2025 11:53 AM SUICIDE PREVENTION NOTE: LOCAL TITLE: ADMISSION SUICIDE SCREENING STANDARD TITLE: SUICIDE PREVENTION NOTE DATE OF NOTE: FEBRUARY 03, 2025@11:53 ENTRY DATE: FEBRUARY 03, 2025@11:53:39 AUTHOR: JARAD LOAIZA EXP COSIGNER: URGENCY: STATUS: COMPLETED C-SSRS Screening [place] Suicide Severity Rating Scale (C-SSRS) screener 1. Over the past month, have you wished you were or wished you could go to sleep and not wake up? No 2. Over the past month, have you had any actual thoughts of killing yourself? No 3. Over the past month, have you been thinking about how you might do this? Response not required due to responses to other questions. 4. Over the past month, have you had these thoughts and had some intention of acting on them? Response not required due to responses to other questions. 5. Over the past month, have you started to work out or worked out the details of how to kill yourself? Response not required due to responses to other questions. 6. If yes, at any time in the past month did you intend to carry out this plan? Response not required due to responses to other questions. 7. In your lifetime, have you ever done anything, started to do anything, or prepared to do anything to end your life (for example, collected pills, obtained a gun, gave away valuables, went to the roof but didn't jump)? No 8. If YES, was this within the past 3 months? Response not required due to responses to other questions. /tristin/ Jarad Loaiza LPN Licensed Practical Nurse Signed: 02/03/2025 11:54 JARAD LOAIZA [facility]
--- OUTSIDE RECORDS SUMMARY | 2025-02-25 10:26 | XMS_ITS | Encounter Summary ---
Author Name [facility] [place] Address [address] [place] [address] Care Team Providers Care Low Vision Therapist Name Role Phone ANN-MARIE HERNANDEZ Primary Care [...] USPS BASIC SELF Sep 17, 2024 33A [id number] [phone] LAWRENCE BRYAN PATIENT ANTHEM [place] [place] F[place] PREFERRED PROVIDER ORGANIZAT ION (PPO) USPS BASIC SELF Sep 17, 2024 33A [id number] [phone] LAWRENCE BRYAN PATIENT [place] PREFERRED PROVIDER ORGANIZAT ION (PPO) USPS BASIC SELF Sep 17, 2024 33A [id number] [phone] LAWRENCE BRYAN PATIENT [place] F[place] PREFERRED PROVIDER ORGANIZAT ION (PPO) USPS BASIC SELF Sep 17, 2024 33A [id number] [phone] LAWRENCE BRYAN PATIENT [employer] F[employer] ([id number]) PRESCRIPT ION FEPRX Nov 26, 2021 [id number] [phone] LAWRENCE BRYAN PATIENT [employer] PREFERRED PROVIDER ORGANIZAT ION (PPO) BI-ST ATE DEVEL OPMEN T Sep 17, 2023 [id number] MATTIE SHERMAN RISTOPHER SPOUSE Selected Encounter This section includes the information on record at [place] for the Encounter. Date/Time Encounter Type Encounter Description Reason Pro vider Source IHE Encounter Template Text not used by [place] Advance Directives: All historical and current Section Date Range: From patient's date of to the date document was created. This section includes ALL of a patient's completed or amended [place] Advance and Rescinded Directives. The entries below indicate that a directive exists for the patient, but an actual copy is not included with this document. The data comes from all [place] facilities. Date Advance Directives Provider Source Mar 21, 1996 ADVANCE DIRECTIVE HARJIT BURGOS [facility]
--- OUTSIDE RECORDS SUMMARY | 2025-02-25 10:26 | XMS_ITS | Continuity of Care Document ---
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 It does not include entries that were removed or entered in error. Problem Status Onset Date Problem Type Date of Resolution Comments Source visit for: screening exam hypertension Inactive 1 Condition DoD REFRACTIVE ERROR Active Condition DoD Vaccines Prophylactic Need Against Influenza Inactive Condition DoD WOUND INFECTION Inactive Condition DoD SINUSITIS Active Condition DoD BACTERIAL VAGINOSIS Inactive Condition DoD Need For Vaccination Hepatitis B Inactive Condition [facility] MENORRHAGIA Active Condition [facility] visit for: screening exam for malignant neoplasm cervix Active Condition [facility] ROUTINE PELVIC EXAM Inactive Condition [facility] HYPERLIPIDEMIA Active Condition [facility] DYSMENORRHEA Active Condition [facility] visit for: administrative purpose Active Condition DoD ABNORMAL WEIGHT GAIN Active Condition DoD ankle joint pain Active Condition DoD Anxiety ([facility] [id number]) Active Condition [facility] Contraception Active Condition [facility] Diabetes Mellitus Type 2 ([facility] [id number]) Active Condition [facility] Hyperlipidemia ([facility] 28450384) Active Condition [facility] Hypothyroidism ([facility] 58493011) Active Condition [facility] NKA Active Condition 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 [facility] Urinary Tract Infections Active Condition [facility] Diagnosis: ICD-10-CM G56.00 Carpal tunnel syndrome, unspecified upper limb Active Diagnosis [facility] Diagnosis: ICD-10-CM G56.01 Carpal tunnel syndrome, right upper limb Active Diagnosis [facility] Diagnosis: ICD-10-CM E11.9 Type 2 diabetes mellitus without complications Active Diagnosis [facility] Diagnosis: ICD-10-CM Z01.818 Encounter for other preprocedural examination Active Diagnosis [facility] Diagnosis: ICD-10-CM S44.01XA 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, right arm, init Active Diagnosis [facility] Diagnosis: ICD-10-CM Z11.52 Encounter for screening for COVID-19 Active Diagnosis [facility] Diagnosis: ICD-10-CM Z04.89 Encounter for examination and observation for oth reasons Active Diagnosis [facility] Diagnosis: ICD-10-CM F34.1 Dysthymic disorder Active Diagnosis [facility] Diagnosis: ICD-10-CM F43.20 Adjustment disorder, unspecified Active Diagnosis [facility] Medications Combined list of outpatient medications from Department of Defense and Veterans Affairs facilities.Medications provided include 1) outpatient medications from the last 15 months, and 2) patient-reported medications. Medication Details Route Status Patient Instructions Prescription Expires Prescription Number Last Dispense Date Ordering Provider Order Date Order Qty Source BUPROPION HCL 300MG 24HR TAB,SA TAKE ONE TABLET BY MOUTH ONCE A DAY FOR DEPRESSI ON SWALLO W WHOLE - DO NOT CRUSH OR CHEW. ORAL 01/10/2025 [id number] 5 MARY,NI I 2023 90 [facility] BUPROPION HCL 300MG 24HR TAB,SA TAKE ONE TABLET BY MOUTH ONCE A DAY ORAL ACTIVE MARY,NI I 2023 [facility] buPROPion HCl XL 300 MG ORAL TB24 TAKE ONE TABLET BY MOUTH ONCE A DAY FOR DEPRESSI ON SWALLO W WHOLE - DO NOT CRUSH OR CHEW. 01/10/2025 [id number] 4 MARY, ANN-MARIE 2023 90 [facility] CHOLECALCIF COLTON (LOW DOSE VIT D) - (OTC) TAB TAKE 125 BY MOUTH ONCE A DAY ORAL ACTIVE MARY,NI DHI 2023 [facility] CRESTOR (BRAND) 20 MG ORAL TAB TAKE ONE-HALF TABLET BY MOUTH EVERY EVENING FOR HIGH CHOLESTE ROL 01/10/2025 [id number] 4 MARY, ANN-MARIE 2023 45 [facility] DOCUSATE (U/D) 100 MG ORAL CAP TAKE ONE CAPSULE BY MOUTH TWICE DAILY NEEDED FOR SOFTENIN G STOOL HOLD FOR LOOSE STOOL/DI ARRHEA. 01/10/2025 [id number] 4 MARY, ANN-MARIE 2023 200 [facility] DOCUSATE NA 100MG CAP TAKE ONE CAPSULE BY MOUTH TWICE DAILY NEEDED FOR SOFTENIN G STOOL HOLD FOR LOOSE STOOL/DI ARRHEA. ORAL 01/10/2025 [id number] 4 MARY,NI I [address] [facility] EPINEPHRINE (EQV-ADRENA CLICK) 0.3MG/0.3ML INJECTOR INJECT 1 PEN (0.3MG/0 .3ML) INTRAMUS CULARLY ONE-TIME FOR ALLERGIC REACTION INTRAM USCULA R 01/10/2025 [id number] 5 MARY,NI I [address] [facility] Epinephrine 1mg/mL, Injection, 0.3 mL Auto-Inject or INJECT 1 PEN (0.3MG/0 .3ML) INTRAMUS CULARLY ONE-TIME FOR ALLERGIC REACTION 01/10/2025 [id number] 4 MARY, ANN-MARIE 2023 2 [facility] ezetimibe (U/D) 10 MG ORAL TAB TAKE ONE TABLET BY MOUTH ONCE A DAY FOR HIGH CHOLESTE ROL 01/10/2025 [id number] 4 MARY, ANN-MARIE 2023 90 [facility] EZETIMIBE 10MG TAB TAKE ONE TABLET BY MOUTH ONCE A DAY FOR HIGH CHOLESTE ROL ORAL 01/10/2025 [id number] 5 MARY,NI I [address] [facility] EZETIMIBE 10MG TAB TAKE ONE TABLET BY MOUTH ONCE A DAY ORAL ACTIVE MARY,NI I 2023 [facility] FEXOFENADIN E HCL 180MG TAB TAKE ONE TABLET BY MOUTH EACH MORNING NEEDED FOR ALLERGIE S ORAL 04/09/2024 [id number] 4 MARYNI I [address] [facility] HYDROCODONE 7.5MG/ACETA MINOPHEN 325MG TAB TAKE 1 TABLET BY MOUTH EVERY 6 HOURS NEEDED FOR POST-OPE RATIVE PAIN CAUTION: DO NOT EXCEED 4000MG PER DAY ACETAMIN OPHEN (APAP) FROM ALL MEDS. ORAL 01/23/2025 [id number] 5 PREVEL,CH RISTOPHER D 2024 20 [facility] Ibuprofen (Motrin) Tablet 800 mg Oral TAKE ONE TABLET BY MOUTH TWICE DAILY NEEDED FOR PAIN TAKE WITH FOOD 02/24/2024 [id number] 4 ANN-MARIE HERNANDEZ 2023 90 [facility] IBUPROFEN 800MG TAB TAKE ONE TABLET BY MOUTH TWICE DAILY NEEDED FOR PAIN TAKE WITH FOOD ORAL 02/24/2024 [id number] [address] [facility] 2023 90 [facility] NAPROXEN 500MG TAB TAKE ONE TABLET BY MOUTH TWICE A DAY FOR PAIN TAKE WITH FOOD. ORAL 11/27/2024 [id number] 5 LUIZA HERNANDEZ I 2024 180 [facility] ROSUVASTATI N CA 20MG TAB TAKE ONE-HALF TABLET BY MOUTH EVERY EVENING FOR HIGH CHOLESTE ROL ORAL 01/10/2025 [id number] 4 LUIZA HERNANDEZ I [address] [facility] ROSUVASTATI N CA 20MG TAB TAKE ONE-HALF TABLET BY MOUTH EVERY EVENING ORAL ACTIVE LUIZA HERNANDEZ I 2023 [facility] SEMAGLUTIDE 0.25MG/0.37 5ML INJ,SOLN,PE N,3ML INJECT 0.5MG UNDER THE SKIN EVERY WEEK SUBCUT ANEOUS ACTIVE LUIZA HERNANDEZ I 2023 [facility] Fexofenadin e Hydrochlori de (Telfast) Tablet 180 mg Oral TAKE ONE TABLET BY MOUTH EACH MORNING NEEDED FOR ALLERGIE S 04/09/2024 [id number] 4 ANN-MARIE HERNANDEZ 2023 90 [facility] Allergies, Adverse Reactions, Alerts Combined list of allergies from Department of Defense and Veterans Affairs facilities. It does not include entries that were removed or entered in error. Substance Category Reaction Severity Reaction type Status Date Reported Comments Source No Known Allergies Drug allergy (disorder) active 04/30/2018 [employer] Damien EVANS [place] Immunizations Combined list of available immunizations from the Department of Defense and Veterans Affairs facilities. Immunization Series Date Given Administered By Site Reaction Lot Number CVX Code Drug Production Engineer Track Status Comments Source varicella virus vaccine 2 2016 [id number] Merck (MSD) complet ed varicella virus vaccine DoD Influenza, seasonal, injectable, preservative free 1 2016 [id number] Seqirus (SEQ) comple t ed Influenza , seasonal, injectabl e, preservat mary lou free DoD Influenza, seasonal, injectable, preservative free 1 2015 [id number] 140 Se[employer]irus (SEQ) comple t ed Influenza , seasonal, injectabl e, preservat mary lou free DoD measles, mumps and rubella virus vaccine 2 2014 [id number] 03 Merck (MSD) complet ed measles, mumps and rubella virus vaccine DoD varicella virus vaccine 1 2014 [id number] 21 Merck (MSD) complet ed varicella virus vaccine DoD Influenza, seasonal, injectable 1 2014 [id number] 141 Novartis Pharmaceutica l Kenzie. (NOV) complet ed Influenza , seasonal, injectabl e DoD Influenza, injectable, quadrivalent, preservative free 1 2013 [id number] [employer] (SKB) complet ed Influenza , injectabl e, quadrival ent, preservat mary lou free DoD Influenza, seasonal, injectable, preservative free 1 2012 [id number] 140 Novartis [employer]ica [employer] Kenzie. (NOV) complet ed Influenza , seasonal, injectabl e, preservat mary lou free DoD Influenza, seasonal, injectable, preservative free 1 2011 [id number] 140 [employer] (CSL) complet ed Influenza , seasonal, injectabl e, preservat mary lou free DoD influenza virus vaccine, unspecified formulation 1 2010 [id number] 88 Novartis Carbon Black. (NOV) complet ed influenza virus vaccine, unspecifi ed formulati on DoD hepatitis B vaccine, adult dosage 3 2010 NICA MERLOS [id number] 43 [facility] ed hepatitis B vaccine, adult dosage DoD influenza virus vaccine, live, attenuated, for intranasal use 1 2009 [id number] 111 [employer] (MED) complet ed influenza virus vaccine, live, attenuate d, for intranasa l use DoD hepatitis B vaccine, adult dosage 2 2009 JARET TOHMAS [id number] 43 [facility] ([facility]) complet ed hepatitis B vaccine, adult dosage DoD hepatitis B vaccine, adult dosage 1 2009 [id number] 43 [facility] (B) complet ed hepatitis B vaccine, adult dosage DoD tetanus toxoid, reduced diphtheria toxoid, and acellular pertu is vaccine, adsorbed 1 2009 [id number] 115 [facility] (B) complet ed tetanus toxoid, reduced diphtheri a toxoid, and acellular pertussis vaccine, adsorbed DoD Novel influenza-H1N 1-09, injectable 1 2009 [id number] 127 Novartis Carbon Black. (NOV) complet ed Novel influenza -S8G8-06, injectabl e DoD influenza virus vaccine, split virus (incl. purified surface antigen)-reti red CODE 1 2008 [id number] [address] (CSL) complet ed influenza virus vaccine, split virus (incl. purified surface antigen)- retired CODE DoD influenza virus vaccine, split virus (incl. purified surface antigen)-reti red CODE 1 2007 [id number] 15 [employer] ([facility]) complet ed influenza virus vaccine, split virus (incl. purified surface antigen)- retired CODE DoD influenza virus vaccine, split virus (incl. purified surface antigen)-reti red CODE 1 2006 [id number] 15 [employer] ([facility]) complet ed influenza virus vaccine, split virus (incl. purified surface antigen)- retired CODE DoD influenza virus vaccine, split virus (incl. purified surface antigen)-reti red CODE 1 2006 [id number] 15 [facility]) complet ed influenza virus vaccine, split virus (incl. purified surface antigen)- retired CODE DoD hepatitis A vaccine, adult dosage 2 2003 [id number] 52 [employer] ([facility]) complet ed hepatitis A vaccine, adult dosage DoD tetanus and diphtheria toxoids, adsorbed, preservative free, for adult use (2 Lf of tetanus toxoid and 2 Lf of diphtheria toxoid) 1 2003 UNK 09 Unknown (UNK) comple t ed tetanus and diphtheri a toxoids, adsorbed, preservat mary lou free, for adult use (2 Lf of tetanus toxoid and 2 Lf of diphtheri a toxoid) DoD influenza virus vaccine, split virus (incl. purified surface antigen)-reti red CODE 1 2003 UNK 15 Sanofi Pasteur ([facility]) complet ed influenza virus vaccine, split virus (incl. purified surface antigen)- retired CODE DoD hepatitis A vaccine, adult dosage 1 2003 [id number] Merck (MSD) complet ed hepatitis A vaccine, adult dosage DoD influenza virus vaccine, split virus (incl. purified surface antigen)-reti red CODE 1 1992 UNK 15 Unknown (UNK) comple t ed influenza virus vaccine, split virus (incl. purified surface antigen)- retired CODE DoD plague vaccine 1 1992 UNK 23 Unknown (UNK) comple t ed plague vaccine DoD measles, mumps and rubella virus vaccine 1 1991 UNK 03 Unknown (UNK) comple t ed measles, mumps and rubella virus vaccine DoD typhoid Vi capsular polysaccharid e vaccine 1 1991 UNK 101 Unknown (UNK) comple t ed typhoid Vi capsular polysacch aride vaccine DoD meningococcal polysaccharid e vaccine (MPSV4) 1 1990 UNK 32 Unknown (UNK) comple t ed meningoco ccal polysacch aride vaccine (MPSV4) DoD trivalent poliovirus vaccine, live, oral 1 1990 UNK 02 Unknown (UNK) comple t ed trivalent polioviru s vaccine, live, oral DoD measles and rubella virus vaccine 1 1990 UNK 04 Unknown (UNK) comple t ed measles and rubella virus vaccine DoD tetanus and diphtheria toxoids, adsorbed, preservative free, for adult use (2 Lf of tetanus toxoid and 2 Lf of diphtheria toxoid) 1 1990 UNK 09 Unknown (UNK) comple t ed tetanus and diphtheri a toxoids, adsorbed, preservat mary lou free, for adult use (2 Lf of tetanus toxoid and 2 Lf of diphtheri a toxoid) DoD adenovirus vaccine, type 4, live, oral 1 1990 UNK 54 Unknown (UNK) comple t ed adenoviru s vaccine, type 4, live, oral DoD adenovirus vaccine, type 7, live, oral 1 1990 UNK 55 Unknown (UNK) comple t ed adenoviru s vaccine, type 7, live, oral DoD Results Combined list of recent chemistry, hematology and other laboratory results from Department of Defense and Veterans Affairs, ranging from 15 months to all on record, depending upon the facility. Order Name Results Value Reference Range Date Interpretation Specimen Comments Source GLUCOSE, BLOOD-po ct (STL) GLUCOSE [MASS/VOLU ME] IN BLOOD BY AUTOMATED TEST STRIP 83 mg/dL 72 - 99 12/24 Specimen Type: BLOOD Comment: Test Performed by: [id number] Meter #: [id number] Ordering Provider: BG HERNANDEZ I Report Released Date/Time: Dec 24, 2024 11:01 AM Reporting Lab: [facility] [address] [facility] [address] Performing Lab: [facility] [address] [facility] [address] [facility] COVID-19 DIAGNOST IC (FLU/RSV )(STL) INFLUENZA VIRUS A AG [PRESENCE] IN NASOPHARYN X NEG 12/23 Specimen Type: NASOPHARYNX Comment: Qualitative real-time PCR and RT-PCR to detect viral RNA. A negative result does not preclude infection with the agent(s) tested and should not be used as the sole basis for treatment or other patient management decisions. If negative, but symptoms persist, consider re-testing. Positive results do not rule out bacterial infection or co-infectio n with other viruses. All results must be combined with clinical observation s, patient history, and epidemiolog ical information for final interpretat ion. Ordering Provider: PRATIBHA FRIED Report Released Date/Time: Dec 23, 2024 02:34 PM Reporting Lab: [facility] [address] [facility] [address] Performing Lab: [place] [address] [place] [id number] [place] [address] COVID-19 DIAGNOST IC (FLU/RSV )(STL) INFLUENZA B NEG 12/23 Specimen Type: NASOPHARYNX Comment: Qualitative real-time PCR and RT-PCR to detect viral RNA. A negative result does not preclude infection with the agent(s) tested and should not be used as the sole basis for treatment or other patient management decisions. If negative, but symptoms persist, consider re-testing. Positive results do not rule out bacterial infection or co-infectio n with other viruses. All results must be combined with clinical observation s, patient history, and epidemiolog ical information for final interpretat ion. Ordering Provider: PRATIBHA FRIED Report Released Date/Time: Dec 23, 2024 02:34 PM Reporting Lab: [place] [address] [facility] [address] Performing Lab: [place] [address] [facility] [address] [facility] COVID-19 DIAGNOST IC (FLU/RSV )(STL) SARS-COV-2 (COVID-19) RNA [PRESENCE] IN RESPIRATOR Y SYSTEM SPECIMEN BY IGLESIA WITH PROBE DETECTION NEG 12/23 Specimen Type: NASOPHARYNX Comment: Qualitative real-time PCR and RT-PCR to detect viral RNA. A negative result does not preclude infection with the agent(s) tested and should not be used as the sole basis for treatment or other patient management decisions. If negative, but symptoms persist, consider re-testing. Positive results do not rule out bacterial infection or co-infectio n with other viruses. All results must be combined with clinical observation s, patient history, and epidemiolog ical information for final interpretat ion. Ordering Provider: PRATIBHA FRIED Report Released Date/Time: Dec 23, 2024 02:34 PM Reporting Lab: [facility] [address] [place] [phone] Performing Lab: [facility] [address] [place] [phone] [facility] COVID-19 DIAGNOST IC (FLU/RSV )([facility]) RESPIRATOR Y SYNCYTIAL VIRUS RNA [PRESENCE] IN RESPIRATOR Y SYSTEM SPECIMEN BY IGLESIA WITH PROBE DETECTION Negative 12/23 Specimen Type: NASOPHARYNX Comment: Qualitative real-time PCR and RT-PCR to detect viral RNA. A negative result does not preclude infection with the agent(s) tested and should not be used as the sole basis for treatment or other patient management decisions. If negative, but symptoms persist, consider re-testing. Positive results do not rule out bacterial infection or co-infectio n with other viruses. All results must be combined with clinical observation s, patient history, and epidemiolog ical information for final interpretat ion. Ordering Provider: PRATIBHA FRIED Report Released Date/Time: Dec 23, 2024 02:34 PM Reporting Lab: [place] [address] [facility] [address] Performing Lab: [address] [address] [facility] CBC LEUKOCYTES [#/VOLUME] IN BLOOD BY AUTOMATED COUNT 5.5 10*3/uL 3.6 - 11.2 12/16 Specimen Type: BLOOD No comment entered. Ordering Provider: PRATIBHA FRIED Report Released Date/Time: Nov 19, 2024 08:50 AM Reporting Lab: [facility] [address] [place] [phone] Performing Lab: [address] [address] [facility] CBC ERYTHROCYT ES [#/VOLUME] IN BLOOD BY AUTOMATED COUNT 4.07 10*6/uL 3.60 - 5.00 12/16 Specimen Type: BLOOD No comment entered. Ordering Provider: PRATIBHA FIRED Report Released Date/Time: Nov 19, 2024 08:50 AM Reporting Lab: [address] [address] Performing Lab: [facility] [address] [place] [phone] [facility] CBC HEMOGLOBIN [MASS/VOLU ME] IN BLOOD 11.4 g/dL 11.0 - 14.9 12/16 Specimen Type: BLOOD No comment entered. Ordering Provider: PRATIBHA FRIED Report Released Date/Time: Nov 19, 2024 08:50 AM Reporting Lab: [address] [address] Performing Lab: [address] [phone] CBC HEMATOCRIT [VOLUME FRACTION] OF BLOOD 34.6 32.6 - 43.4 12/16 Specimen Type: BLOOD No comment entered. Ordering Provider: PRATIBHA FRIED Report Released Date/Time: Nov 19, 2024 08:50 AM Reporting Lab: [address] [address] Performing Lab: [address] [address] [facility] CBC MCV [ENTITIC VOLUME] BY AUTOMATED COUNT 85.0 fL 80.0 - 100.0 12/16 Specimen Type: BLOOD No comment entered. Ordering Provider: PRATIBHA FRIED Report Released Date/Time: Nov 19, 2024 08:50 AM Reporting Lab: [address] [phone] Performing Lab: [address] [address] [facility] CBC MCH [ENTITIC MASS] BY AUTOMATED COUNT 28.0 pg 27.0 - 34.0 12/16 Specimen Type: BLOOD No comment entered. Ordering Provider: PRATIBHA FRIED Report Released Date/Time: Nov 19, 2024 08:50 AM Reporting Lab: [address] [address] Performing Lab: [address] [address] [facility] CBC MCHC [MASS/VOLU ME] BY AUTOMATED COUNT 32.9 g/dL 33.0 - 36.0 12/16 L Specimen Type: BLOOD No comment entered. Ordering Provider: PRATIBHA FRIED Report Released Date/Time: Nov 19, 2024 08:50 AM Reporting Lab: [address] [address] Performing Lab: [address] [address] [facility] CBC PLATELETS [#/VOLUME] IN BLOOD BY AUTOMATED COUNT 274 10*3/uL 150 - 400 12/16 Specimen Type: BLOOD No comment entered. Ordering Provider: PRATIBHA FRIED Report Released Date/Time: Nov 19, 2024 08:50 AM Reporting Lab: [address] [address] Performing Lab: [address] [address] [facility] CBC PLATELET MEAN VOLUME [ENTITIC VOLUME] IN BLOOD BY AUTOMATED COUNT 9.2 fL 7.5 - 11.2 12/16 Specimen Type: BLOOD No comment entered. Ordering Provider: PRATIBHA FRIED Report Released Date/Time: Nov 19, 2024 08:50 AM Reporting Lab: [address] [address] Performing Lab: [address] [address] [facility] CBC ERYTHROCYT E DISTRIBUTI ON WIDTH [RATIO] BY AUTOMATED COUNT 12.9 11.8 - 15.1 12/16 Specimen Type: BLOOD No comment entered. Ordering Provider: PRATIBHA FRIED Report Released Date/Time: Nov 19, 2024 08:50 AM Reporting Lab: [facility] [address] [facility] [address] Performing Lab: [facility] [address] [facility] [address] [facility] CBC LYMPHOCYTE S/100 LEUKOCYTES IN BLOOD BY AUTOMATED COUNT 44 12/16 Specimen Type: BLOOD No comment entered. Ordering Provider: PRATIBHA FRIED Report Released Date/Time: Nov 19, 2024 08:50 AM Reporting Lab: [facility] [address] [facility] [address] Performing Lab: [facility] [address] [facility] [address] [facility] CBC MONOCYTES/ 100 LEUKOCYTES IN BLOOD BY AUTOMATED COUNT 7 12/16 Specimen Type: BLOOD No comment entered. Ordering Provider: PRATIBHA FRIED Report Released Date/Time: Nov 19, 2024 08:50 AM Reporting Lab: [facility] [address] [facility] [address] Performing Lab: [facility] [address] [facility] [address] [facility] CBC NEUTROPHIL S/100 LEUKOCYTES IN BLOOD BY AUTOMATED COUNT 46 12/16 Specimen Type: BLOOD No comment entered. Ordering Provider: PRATIBHA FRIED Report Released Date/Time: Nov 19, 2024 08:50 AM Reporting Lab: [facility] [address] [facility] [address] Performing Lab: [facility] [address] [facility] [address] [facility] CBC EOSINOPHIL S/100 LEUKOCYTES IN BLOOD BY AUTOMATED COUNT 2 12/16 Specimen Type: BLOOD No comment entered. Ordering Provider: PRATIBHA FRIED Report Released Date/Time: Nov 19, 2024 08:50 AM Reporting Lab: [facility] [address] [facility] [address] Performing Lab: [facility] [address] [place] [address] [facility] CBC BASOPHILS/ 100 LEUKOCYTES IN BLOOD BY AUTOMATED COUNT 1 12/16 Specimen Type: BLOOD No comment entered. Ordering Provider: PRATIBHA FRIED Report Released Date/Time: Nov 19, 2024 08:50 AM Reporting Lab: [place] [address] [facility] [address] Performing Lab: [place] [address] [facility] [address] [facility] [facility] LYMPHOCYTE S [#/VOLUME] IN BLOOD BY AUTOMATED COUNT 2.40 10*3/uL 0.77 - 4.50 12/16 Specimen Type: BLOOD No comment entered. Ordering Provider: PRATIBHA FRIED Report Released Date/Time: Nov 19, 2024 08:50 AM Reporting Lab: [place] [address] [facility] [address] Performing Lab: [address] [address] [facility] CBC MONOCYTES [#/VOLUME] IN BLOOD BY AUTOMATED COUNT 0.37 10*3/uL 0.19 - 0.80 12/16 Specimen Type: BLOOD No comment entered. Ordering Provider: PRATIBHA FRIED Report Released Date/Time: Nov 19, 2024 08:50 AM Reporting Lab: [place] [address] [facility] [address] Performing Lab: [address] [address] [facility] CBC NEUTROPHIL S [#/VOLUME] IN BLOOD BY AUTOMATED COUNT 2.54 10*3/uL 2.10 - 8.00 12/16 Specimen Type: BLOOD No comment entered. Ordering Provider: PRATIBHA FRIED Report Released Date/Time: Nov 19, 2024 08:50 AM Reporting Lab: [place] [address] [facility] [address] Performing Lab: [place] [address] [facility] [address] [facility] CBC EOSINOPHIL S [#/VOLUME] IN BLOOD BY AUTOMATED COUNT 0.12 10*3/uL 0.00 - 0.60 12/16 Specimen Type: BLOOD No comment entered. Ordering Provider: PRATIBHA FRIED Report Released Date/Time: Nov 19, 2024 08:50 AM Reporting Lab: [place] [address] [facility] [address] Performing Lab: [place] [address] [place] [id number] CBC BASOPHILS [#/VOLUME] IN BLOOD BY AUTOMATED COUNT 0.06 10*3/uL 0.00 - 0.20 12/16 Specimen Type: BLOOD No comment entered. Ordering Provider: PRATIBHA FRIED Report Released Date/Time: Nov 19, 2024 08:50 AM Reporting Lab: [place] [address] [facility] [address] Performing Lab: [place] [address] [facility] [address] [facility] COMPREHE NSIVE METABOLI C PANEL CREATININE [MASS/VOLU ME] IN SERUM OR PLASMA 0.86 mg/dL 0.6 - 1.1 12/16 Specimen Type: PLASMA Comment: No hemolysis noted. VERIFIED BY REPEAT Ordering Provider: PRATIBHA FRIED Report Released Date/Time: Nov 19, 2024 08:50 AM Reporting Lab: [place] [address] [facility] [address] Performing Lab: [address] [address] [facility] COMPREHE NSIVE METABOLI C PANEL UREA NITROGEN [MASS/VOLU ME] IN SERUM OR PLASMA 10.3 mg/dL 9.0 - 25.0 12/16 Specimen Type: PLASMA Comment: No hemolysis noted. VERIFIED BY REPEAT Ordering Provider: PRATIBHA FRIED Report Released Date/Time: Nov 19, 2024 08:50 AM Reporting Lab: [facility] [address] [facility] [address] Performing Lab: [facility] [address] [address] [facility] COMPREHE NSIVE METABOLI C PANEL GLUCOSE [MASS/VOLU ME] IN SERUM OR PLASMA 81 mg/dL 72 - 99 12/16 Specimen Type: PLASMA Comment: No hemolysis noted. VERIFIED BY REPEAT Ordering Provider: PRATIBHA FRIED Report Released Date/Time: Nov 19, 2024 08:50 AM Reporting Lab: [facility] [address] [facility] [address] Performing Lab: [facility] [address] [facility] [address] [facility] COMPREHE NSIVE METABOLI C PANEL SODIUM [MOLES/VOL UME] IN SERUM OR PLASMA 139 meq/L 136 - 145 12/16 Specimen Type: PLASMA Comment: No hemolysis noted. VERIFIED BY REPEAT Ordering Provider: PRATIBHA FRIED Report Released Date/Time: Nov 19, 2024 08:50 AM Reporting Lab: [facility] [address] [facility] [address] Performing Lab: [facility] [address] [facility] [address] [facility] COMPREHE NSIVE METABOLI C PANEL POTASSIUM [MOLES/VOL UME] IN SERUM OR PLASMA 3.8 meq/L 3.5 - 5 12/16 Specimen Type: PLASMA Comment: No hemolysis noted. VERIFIED BY REPEAT Ordering Provider: PRATIBHA FRIED Report Released Date/Time: Nov 19, 2024 08:50 AM Reporting Lab: [facility] [address] [facility] [address] Performing Lab: [facility] [address] [address] [facility] COMPREHE NSIVE METABOLI C PANEL CHLORIDE [MOLES/VOL UME] IN SERUM OR PLASMA 105 meq/L 98 - 107 12/16 Specimen Type: PLASMA Comment: No hemolysis noted. VERIFIED BY REPEAT Ordering Provider: PRATIBHA FRIED Report Released Date/Time: Nov 19, 2024 08:50 AM Reporting Lab: [facility] [address] [facility] [address] Performing Lab: [facility] [address] [facility] [address] [facility] COMPREHE NSIVE METABOLI C PANEL CARBON DIOXIDE, TOTAL [MOLES/VOL UME] IN SERUM OR PLASMA 26 meq/L 22 - 31 12/16 Specimen Type: PLASMA Comment: No hemolysis noted. VERIFIED BY REPEAT Ordering Provider: PRATIBHA FRIED Report Released Date/Time: Nov 19, 2024 08:50 AM Reporting Lab: [facility] [address] [facility] [address] Performing Lab: [facility] [address] [facility] [address] [facility] COMPREHE NSIVE METABOLI C PANEL CALCIUM [MASS/VOLU ME] IN SERUM OR PLASMA 9.5 mg/dL 8.4 - 10.4 12/16 Specimen Type: PLASMA Comment: No hemolysis noted. VERIFIED BY REPEAT Ordering Provider: PRATIBHA FRIED Report Released Date/Time: Nov 19, 2024 08:50 AM Reporting Lab: [facility] [address] [facility] [address] Performing Lab: [facility] [address] [facility] [address] [facility] COMPREHE NSIVE METABOLI C PANEL PROTEIN [MASS/VOLU ME] IN SERUM OR PLASMA 7.1 g/dL 6 - 8.6 12/16 Specimen Type: PLASMA Comment: No hemolysis noted. VERIFIED BY REPEAT Ordering Provider: PRATIBHA FRIED Report Released Date/Time: Nov 19, 2024 08:50 AM Reporting Lab: [facility] [address] [facility] [address] Performing Lab: [facility] [address] [facility] [address] [facility] COMPREHE NSIVE METABOLI C PANEL ALBUMIN [MASS/VOLU ME] IN SERUM OR PLASMA 4.1 g/dL 3.4 - 5 12/16 Specimen Type: PLASMA Comment: No hemolysis noted. VERIFIED BY REPEAT Ordering Provider: PRATIBHA FRIED Report Released Date/Time: Nov 19, 2024 08:50 AM Reporting Lab: [address] [address] Performing Lab: [place] [address] [facility] [address] [facility] COMPREHE NSIVE METABOLI C PANEL BILIRUBIN. TOTAL [MASS/VOLU ME] IN SERUM OR PLASMA 0.6 mg/dL 0.2 - 1.2 12/16 Specimen Type: PLASMA Comment: No hemolysis noted. VERIFIED BY REPEAT Ordering Provider: PRATIBHA FRIED Report Released Date/Time: Nov 19, 2024 08:50 AM Reporting Lab: [place] [address] [facility] [address] Performing Lab: [place] [address] [facility] [address] [facility] COMPREHE NSIVE METABOLI C PANEL ALKALINE PHOSPHATAS E [ENZYMATIC ACTIVITY/V OLUME] IN SERUM OR PLASMA 77 U/L 40 - 150 12/16 Specimen Type: PLASMA Comment: No hemolysis noted. VERIFIED BY REPEAT Ordering Provider: PRATIBHA FRIED Report Released Date/Time: Nov 19, 2024 08:50 AM Reporting Lab: [facility] [address] [facility] [address] Performing Lab: [facility] [address] [facility] [address] [facility] COMPREHE NSIVE METABOLI C PANEL ASPARTATE AMINOTRANS FERASE [ENZYMATIC ACTIVITY/V OLUME] IN SERUM OR PLASMA 28 U/L 5 - 34 12/16 Specimen Type: PLASMA Comment: No hemolysis noted. VERIFIED BY REPEAT Ordering Provider: PRATIBHA FRIED Report Released Date/Time: Nov 19, 2024 08:50 AM Reporting Lab: [place] [address] [facility] [address] Performing Lab: [place] [address] [facility] [phone] [place] [address] COMPREHE NSIVE METABOLI C PANEL ALANINE AMINOTRANS FERASE [ENZYMATIC ACTIVITY/V OLUME] IN SERUM OR PLASMA 26 U/L 8 - 40 12/16 Specimen Type: PLASMA Comment: No hemolysis noted. VERIFIED BY REPEAT Ordering Provider: PRATIBHA FRIED Report Released Date/Time: Nov 19, 2024 08:50 AM Reporting Lab: [place] [address] [facility] [address] Performing Lab: [place] [address] [facility] [phone] [place] [address] COMPREHE NSIVE METABOLI C PANEL GLOMERULAR FILTRATION RATE/1.73 SQ M.PREDICTE D [VOLUME RATE/AREA] IN SERUM, PLASMA OR BLOOD BY CREATININE -BASED FORMULA (CKD-EPI 2020) 81.2 60 12/16 Specimen Type: PLASMA Comment: No hemolysis noted. VERIFIED BY REPEAT Ordering Provider: PRATIBHA FRIED Report Released Date/Time: Nov 19, 2024 08:50 AM Reporting Lab: [place] [address] [facility] [address] Performing Lab: [place] [address] [facility] [phone] [place] [address] MICRAL/C REAT PROFILE (STL) ALBUMIN [MASS/VOLU ME] IN URINE 15.9 mg/L 08/27 Specimen Type: URINE No comment entered. Ordering Provider: BG HERNANDEZ I Report Released Date/Time: Aug 13, 2024 02:46 PM Reporting Lab: [facility] [address] [facility] [address] Performing Lab: [facility] [address] [place] [phone] [facility] MICRAL/C REAT PROFILE (STL) ALBUMIN/CR EATININE [MASS RATIO] IN URINE 7 mg/g 0 - 29 08/27 Specimen Type: URINE No comment entered. Ordering Provider: BG HERNANDEZ I Report Released Date/Time: Aug 13, 2024 02:46 PM Reporting Lab: [facility] [address] [place] [phone] Performing Lab: [facility] [address] [place] [phone] [place] [address] MICRAL/C REAT PROFILE (STL) CREATININE [MASS/VOLU ME] IN URINE 221.1 mg/dL 47 - 110 08/27 H Specimen Type: URINE No comment entered. Ordering Provider: BG HERNANDEZ I Report Released Date/Time: Aug 13, 2024 02:46 PM Reporting Lab: [facility] [address] [place] [address] Performing Lab: [facility] [address] [place] [address] [facility] HGA1C HEMOGLOBIN A1C/HEMOGL OBIN.TOTAL IN BLOOD 6.3 4.0 - 6.0 08/27 H Specimen Type: BLOOD No comment entered. Ordering Provider: BG HERNANDEZ I Report Released Date/Time: Aug 13, 2024 02:46 PM Reporting Lab: [facility] [address] [place] [phone] Performing Lab: [facility] [address] [place] [phone] [facility] COMPREHE NSIVE METABOLI C PANEL CREATININE [MASS/VOLU ME] IN SERUM OR PLASMA 1.11 mg/dL 0.6 - 1.1 08/27 H Specimen Type: PLASMA Comment: No hemolysis noted. Ordering Provider: BG HERNANDEZ I Report Released Date/Time: Aug 13, 2024 02:46 PM Reporting Lab: [facility] [address] [facility] [address] Performing Lab: [facility] [address] [facility] [address] [facility] COMPREHE NSIVE METABOLI C PANEL UREA NITROGEN [MASS/VOLU ME] IN SERUM OR PLASMA 13.4 mg/dL 9.0 - 25.0 08/27 Specimen Type: PLASMA Comment: No hemolysis noted. Ordering Provider: BG HERNANDEZ I Report Released Date/Time: Aug 13, 2024 02:46 PM Reporting Lab: [facility] [address] [place] [phone] Performing Lab: [facility] [address] [facility] [address] [facility] COMPREHE NSIVE METABOLI C PANEL GLUCOSE [MASS/VOLU ME] IN SERUM OR PLASMA 89 mg/dL 72 - 99 08/27 Specimen Type: PLASMA Comment: No hemolysis noted. Ordering Provider: GB HERNANDEZ I Report Released Date/Time: Aug 13, 2024 02:46 PM Reporting Lab: [facility] [address] [place] [phone] Performing Lab: [facility] [address] [place] [phone] [facility] COMPREHE NSIVE METABOLI C PANEL SODIUM [MOLES/VOL UME] IN SERUM OR PLASMA 141 meq/L 136 - 145 08/27 Specimen Type: PLASMA Comment: No hemolysis noted. Ordering Provider: BG HERNANDEZ I Report Released Date/Time: Aug 13, 2024 02:46 PM Reporting Lab: [facility] [address] [facility] [address] Performing Lab: [facility] [address] [facility] [address] [facility] COMPREHE NSIVE METABOLI C PANEL POTASSIUM [MOLES/VOL UME] IN SERUM OR PLASMA 4.1 meq/L 3.5 - 5 08/27 Specimen Type: PLASMA Comment: No hemolysis noted. Ordering Provider: BG HERNANDEZ I Report Released Date/Time: Aug 13, 2024 02:46 PM Reporting Lab: [facility] [address] [facility] [address] Performing Lab: [facility] [address] [facility] [address] [facility] COMPREHE NSIVE METABOLI C PANEL CHLORIDE [MOLES/VOL UME] IN SERUM OR PLASMA 104 meq/L 98 - 107 08/27 Specimen Type: PLASMA Comment: No hemolysis noted. Ordering Provider: BG HERNANDEZ I Report Released Date/Time: Aug 13, 2024 02:46 PM Reporting Lab: [facility] [address] [place] [phone] Performing Lab: [facility] [address] [place] [phone] [place] [address] COMPREHE NSIVE METABOLI C PANEL CARBON DIOXIDE, TOTAL [MOLES/VOL UME] IN SERUM OR PLASMA 27 meq/L 22 - 31 08/27 Specimen Type: PLASMA Comment: No hemolysis noted. Ordering Provider: BG HERNANDEZ I Report Released Date/Time: Aug 13, 2024 02:46 PM Reporting Lab: [facility] [address] [facility] [address] Performing Lab: [facility] [address] [place] [phone] [facility] COMPREHE NSIVE METABOLI C PANEL CALCIUM [MASS/VOLU ME] IN SERUM OR PLASMA 9.7 mg/dL 8.4 - 10.4 08/27 Specimen Type: PLASMA Comment: No hemolysis noted. Ordering Provider: BG HERNANDEZ I Report Released Date/Time: Aug 13, 2024 02:46 PM Reporting Lab: [facility] [address] [facility] [address] Performing Lab: [facility] [address] [facility] [address] [facility] COMPREHE NSIVE METABOLI C PANEL PROTEIN [MASS/VOLU ME] IN SERUM OR PLASMA 7.7 g/dL 6 - 8.6 08/27 Specimen Type: PLASMA Comment: No hemolysis noted. Ordering Provider: BG HERNANDEZ I Report Released Date/Time: Aug 13, 2024 02:46 PM Reporting Lab: [facility] [address] [facility] [address] Performing Lab: [facility] [address] [place] [phone] [facility] COMPREHE NSIVE METABOLI C PANEL ALBUMIN [MASS/VOLU ME] IN SERUM OR PLASMA 4.2 g/dL 3.4 - 5 08/27 Specimen Type: PLASMA Comment: No hemolysis noted. Ordering Provider: BG HERNANDEZ I Report Released Date/Time: Aug 13, 2024 02:46 PM Reporting Lab: [facility] [address] [place] [phone] Performing Lab: [address] [address] [facility] COMPREHE NSIVE METABOLI C PANEL BILIRUBIN. TOTAL [MASS/VOLU ME] IN SERUM OR PLASMA 0.7 mg/dL 0.2 - 1.2 08/27 Specimen Type: PLASMA Comment: No hemolysis noted. Ordering Provider: BG HERNANDEZ I Report Released Date/Time: Aug 13, 2024 02:46 PM Reporting Lab: [facility] [address] [place] [phone] Performing Lab: [facility] [address] [facility] [address] [facility] COMPREHE NSIVE METABOLI C PANEL ALKALINE PHOSPHATAS E [ENZYMATIC ACTIVITY/V OLUME] IN SERUM OR PLASMA 82 U/L 40 - 150 08/27 Specimen Type: PLASMA Comment: No hemolysis noted. Ordering Provider: BG HERNANDEZ I Report Released Date/Time: Aug 13, 2024 02:46 PM Reporting Lab: [facility] [address] [facility] [address] Performing Lab: [facility] [address] [place] [phone] [facility] COMPREHE NSIVE METABOLI C PANEL ASPARTATE AMINOTRANS FERASE [ENZYMATIC ACTIVITY/V OLUME] IN SERUM OR PLASMA 49 U/L 5 - 34 08/27 H Specimen Type: PLASMA Comment: No hemolysis noted. Ordering Provider: BG HERNANDEZ I Report Released Date/Time: Aug 13, 2024 02:46 PM Reporting Lab: [facility] [address] [facility] [address] Performing Lab: [facility] [address] [facility] [address] [facility] COMPREHE NSIVE METABOLI C PANEL ALANINE AMINOTRANS FERASE [ENZYMATIC ACTIVITY/V OLUME] IN SERUM OR PLASMA 28 U/L 8 - 40 08/27 Specimen Type: PLASMA Comment: No hemolysis noted. Ordering Provider: BG HERNANDEZ I Report Released Date/Time: Aug 13, 2024 02:46 PM Reporting Lab: [facility] [address] [place] [phone] Performing Lab: [facility] [address] [facility] [address] [facility] COMPREHE NSIVE METABOLI C PANEL GLOMERULAR FILTRATION RATE/1.73 SQ M.PREDICTE D [VOLUME RATE/AREA] IN SERUM, PLASMA OR BLOOD BY CREATININE -BASED FORMULA (CKD-EPI 2020) 59.8 60 08/27 Specimen Type: PLASMA Comment: No hemolysis noted. Ordering Provider: BG HERNANDEZ I Report Released Date/Time: Aug 13, 2024 02:46 PM Reporting Lab: [facility] [address] [facility] [address] Performing Lab: [facility] [address] [place] [phone] [facility] LIPID PANEL (STL) CHOLESTERO L [MASS/VOLU ME] IN SERUM OR PLASMA 146 mg/dL 0 - 200 08/27 Specimen Type: PLASMA Comment: No hemolysis noted. Ordering Provider: BG HERNANDEZ I Report Released Date/Time: Aug 13, 2024 02:46 PM Reporting Lab: [facility] [address] [facility] [address] Performing Lab: [facility] [address] [facility] [address] [facility] LIPID PANEL (STL) TRIGLYCERI DE [MASS/VOLU ME] IN SERUM OR PLASMA 72 mg/dL 0 - 150 08/27 Specimen Type: PLASMA Comment: No hemolysis noted. Ordering Provider: BG HERNANDEZ I Report Released Date/Time: Aug 13, 2024 02:46 PM Reporting Lab: [facility] [address] [facility] [address] Performing Lab: [facility] [address] [place] [phone] [facility] LIPID PANEL (STL) CHOLESTERO L IN LDL [MASS/VOLU ME] IN SERUM OR PLASMA BY CALCULAMARILYNO N 75 mg/dL 08/27 Specimen Type: PLASMA Comment: No hemolysis noted. Ordering Provider: BG HERNANDEZ I Report Released Date/Time: Aug 13, 2024 02:46 PM Reporting Lab: [facility] [address] [facility] [address] Performing Lab: [facility] [address] [facility] [address] [facility] LIPID PANEL (STL) CHOLESTERO L IN HDL [MASS/VOLU ME] IN SERUM OR PLASMA 57 mg/dL 40 08/27 Specimen Type: PLASMA Comment: No hemolysis noted. Ordering Provider: BG HERNANDEZ I Report Released Date/Time: Aug 13, 2024 02:46 PM Reporting Lab: [facility] [address] [facility] [address] Performing Lab: [facility] [address] [facility] [address] [facility] B12 COBALAMIN (VITAMIN B12) [MASS/VOLU ME] IN SERUM OR PLASMA 491 pg/mL 213 - 816 01/09 Specimen Type: SERUM No comment entered. Ordering Provider: BG HERNANDEZ I Report Released Date/Time: Dec 31, 2023 10:01 AM Reporting Lab: [facility] [address] [facility] [address] Performing Lab: [facility] [address] [facility] [address] [facility] VITAMIN D, 25-HYDRO XY 25-HYDROXY VITAMIN D3 [MASS/VOLU ME] IN SERUM OR PLASMA 65.2 ng/mL 30 - 96 01/09 Specimen Type: SERUM No comment entered. 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 Vital Sign Value Date Comments Source SYSTOLIC BLOOD PRESSURE 128 02/03/2025 11:52:52 [facility] DIASTOLIC BLOOD PRESSURE 76 02/03/2025 11:52:52 [facility] PULSE OXIMETRY 99 02/03/2025 11:52:52 [facility] WEIGHT 191 02/03/2025 11:52:52 [facility] BMI 33 kg/m2 02/03/2025 11:52:52 [facility] PAIN 0 02/03/2025 11:52:52 [facility] HEIGHT 64 02/03/2025 11:52:52 [facility] TEMPERATURE 98.1 02/03/2025 11:52:52 [facility] PULSE 81 02/03/2025 11:52:52 [facility] RESPIRATION 20 02/03/2025 11:52:52 [facility] SYSTOLIC BLOOD PRESSURE 130 01/06/2025 08:07:08 [facility] DIASTOLIC BLOOD PRESSURE 77 01/06/2025 08:07:08 [facility] PULSE OXIMETRY 99 01/06/2025 08:07:08 [facility] PAIN 0 01/06/2025 08:07:08 [facility] HEIGHT 64 01/06/2025 08:07:08 [facility] TEMPERATURE 98.2 01/06/2025 08:07:08 [facility] PULSE 87 01/06/2025 08:07:08 [facility] RESPIRATION 18 01/06/2025 08:07:08 [facility] SYSTOLIC BLOOD PRESSURE 134 12/24/2024 10:30:00 [facility] DIASTOLIC BLOOD PRESSURE 82 12/24/2024 10:30:00 [facility] PULSE OXIMETRY 98 12/24/2024 10:30:00 [facility] WEIGHT 191.2 12/24/2024 10:30:00 [facility] BMI 33 kg/m2 12/24/2024 10:30:00 [facility] PAIN 0 12/24/2024 10:30:00 [facility] HEIGHT 64 12/24/2024 10:30:00 [facility] TEMPERATURE 98.6 12/24/2024 10:30:00 [facility] PULSE 81 12/24/2024 10:30:00 [facility] RESPIRATION 12 12/24/2024 10:30:00 [facility] SYSTOLIC BLOOD PRESSURE 138 11/19/2024 08:33:35 [facility] DIASTOLIC BLOOD PRESSURE 76 11/19/2024 08:33:35 [facility] PULSE OXIMETRY 99 11/19/2024 08:33:35 [facility] WEIGHT 194.8 11/19/2024 08:33:35 [facility] BMI 34 kg/m2 11/19/2024 08:33:35 [facility] [facility] PAIN 0 11/19/2024 08:33:35 [facility] [facility] HEIGHT 64 11/19/2024 08:33:35 [address] [facility] TEMPERATURE 98 11/19/2024 08:33:35 [facility] PULSE 86 11/19/2024 08:33:35 [facility] [facility] RESPIRATION 18 11/19/2024 08:33:35 . 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 Location Location Details Encounter Type Encounter Number Reason For Visit Attending Provider ADM Date DC Date Status Disposition Source REGAN Bella(Irelan d Readiness ) OUTPATIENT [id number] profile issue MALIK ORTEGA 12/30 Released with Work/Duty Limitations [facility](Irel and Militar y Readine ss) [facility]relan d Readiness ) OUTPATIENT [id number] PAP MALIK ORTEGA 01/04 Released with Work/Duty Limitations [facility]rel and Militar y Readine ss) [facility] Read[facility] ) TELE CONSULT [phone] f/u to discuss mri ankle result KENROY VO 01/10 [facility]rel and Militar y Readine ss) [facility] OUTPATIENT [id number] PAP;SRP SOLDIER NIA MONSIVAIS 01/10 Released w/o Limitations [facility] Read[facility] ) OUTPATIENT [id number] PAP MALIK ORTEGA 01/11 Released w/o Limitations [facility]rel and Militar y Readine ss) [facility]ic [facility] Therapy [facility]) OUTPATIENT [id number] ankle joint pain JOSETTE FUENTES R 01/28 Released w/o Limitations [facility] ical Therapy [facility]) Jennifer REG[facility] Thomas([facility] OUTPATIENT [id number] DYSMENO RRHEA SIDRA LIANGEL 04/04 Released w/o Limitations [facility]la([facility]) Jennifer [facility] Thomas(Immuni zation Clinic) OUTPATIENT [id number] [employer] ?? JARET THOMAS L 04/04 Released w/o Limitations [facility](Immu nizatio n Clinic) Jennifer [facility] TELE CONSULT [id number] surgery on 14 april; leonel CHONG ISELA L 04/25 [place] [facility] [place] [facility]) OUTPATIENT [id number] WALK IN [facility] EDITA 04/26 Released w/o Limitations [facility]) [place] [facility] Thomas([facility] d Readiness ) OUTPATIENT [id number] need profile update MALIK ORTEGA 05/20 Released with Work/Duty Limitations [place] BRITTANY LozadaoxREGAN(Irel and Militar y Readine ss) [place] [facility] Readiness ) OUTPATIENT [id number] SINUS INFECTI ON DUYOUSIF MEYERE C 05/31 Released w/o Limitations [place] BRITTANY LozadaoxREGAN(Irel and Militar y Readine ss) [place] [facility] Thomas([facility] Therapy [facility]) OUTPATIENT [id number] Ankle joint pain JUNE BRAY J 06/16 Released w/o Limitations [facility] ical Therapy [facility]) [place] [facility] Readiness ) OUTPATIENT [id number] infecte d hair folicle MALIK ORTEGA 06/29 Released w/o Limitations [place] REG[facility] Thomas(Irel and Militar y Readine ss) [facility] [place] [facility] ) OUTPATIENT [id number] infecte d hair folicle fu/ ORTEGAMALIK Ross E 07/04 Released w/o Limitations [facility] [place]) [facility] [place] OUTPATIENT [id number] SEASONA L INFLUEN ZA MARTIN WOJCIECH D 07/06 Released w/o Limitations [facility] [place] [place]) OUT[place]IENT [id number] hep b+. STEFANIE STEEN 10/04 Released w/o Limitations [facility] [place] [facility] [place] OUTPATIENT [id number] RONNIE DANIEL 10/04 Released w/o Limitations [facility] [place] [facility] [facility] [place] OUTPATIENT [id number] update profile MALIK ORTEGA E 10/04 Released with Work/Duty Limitations [facility] [place] [facility] [place] OUTPATIENT [id number] profile MALIK ORTEGA E 01/04 Released with Work/Duty Limitations [facility] [place] [facility] [place] TELE CONSULT [id number] 5 Day B/P KENROY VO 01/04 [facility] [place] [facility] [place] OUTPATIENT [id number] Day1/5 Day BP Check MALIK ORTEGA E 01/05 Released w/o Limitations [facility] [place] Ceja BRITTANY Barbal, JESSICA([facility]) OUTPATIENT [id number] Notes Entered by: ESTRELLITA TOVAR 30 Apr 2018 0815 ------- ------- ------- ------- -- (N P-DS) CONGEST ION,LOW ER BACK PAIN SHERRICORNEL TORIBIO OBED 04/30 Released w/o Limitations [facility] [employer] [place] [place] [place] OUTPATIENT [id number] Notes Entered by: MARTÍNEZ OLSON 02 May 2018 0735 ------- ------- ------- ------- -- E 10/17= DS F/u back pain SHERRICORNEL TOIRBIO OBED 05/02 Released w/o Limitations [facility] [employer] [place] [facility]) OUT[place] [id number] low back pain/ri ght leg pain per Tram Thao ld HA SYED 05/03 Released w/o Limitations [facility] [place] [place] [facility] [place] OUT[place] [id number] back HA SYED 05/08 Released w/o Limitations [facility] [place] [facility] [place]) [place] [id number] BACK ROCHELLE GIANNA Elin 05/15 Released w/o Limitations [facility] [place] [facility] [place]) [place] [id number] BACK HA SYED 05/16 Released w/o Limitations [facility] [place] [facility] [place]) [place] [id number] BACK EDUARDO LÓPEZ 05/22 Released w/o Limitations [facility] [place] [place] [facility] [employer] [place] [place] OUTPATIENT [id number] Notes Entered by: SORAYA ISBELL 23 May 2018 1101 ------- ------- ------- ------- -- E1/31(D /S) Labs GATO RODRIGUEZ 05/23 Released w/o Limitations [facility] [place]([facility]) [facility] Outpatient Encounter [id number] 12/30 [facility] OFFICE O/P NEW MOD 45 MIN [id number] Diagnos is: ICD-10- CM E11.9 Type 2 diabete s mellitu s without complic ations GEOFFREY HERNANDEZ HI 12/30 [facility] PSYTX W PT 30 MINUTES [id number] Diagnos is: ICD-10- CM F43.20 Adjustm ent disorde r, unspeci fiJED Glynn T 12/30 [facility] Outpatient Encounter [id number] 01/03 [facility] OFF/OP EST JANUARY X REQ PHY/QHP [id number] [id number] Diagnos is: ICD-10- CM E11.9 Type 2 diabete s mellitu s without complic ations ROMANA PRIEST R 01/07 [facility] HC PRO PHONE CALL 11-20 MIN [id number] [id number] Diagnos is: ICD-10- CM E11.9 Type 2 diabete s mellitu s without complic ations ROMANA PRIEST R 01/13 [facility] PSYTX W PT 45 MINUTES [id number] [id number] Diagnos is: ICD-10- CM F34.1 Dysthym ic disordJED Alcantar T 01/20 [facility] PSYTX W PT 30 MINUTES [id number] [id number] Diagnos is: ICD-10- CM F34.1 Dysthym ic disorde r ROXANASCOTTYRADHA T 01/29 [facility] Outpatient Encounter [id number] [id number] 02/12 [facility] Outpatient Encounter [id number] ROXANASCOTTYRADHA T 02/13 [facility] OFFICE O/P NEW MOD 45 MIN [id number] [id number] Diagnos is: ICD-10- CM E11.9 Type 2 diabete s mellitu s without complic ations DOMINIC MCDONNELL 02/26 [facility] Outpatient Encounter [id number] 1 04/16 [facility] Outpatient Encounter [id number] 06/23 [facility] Outpatient Encounter [id number] MARY,NID HI 08/15 [facility] Outpatient Encounter [id number] [id number] MARY,NID HI 08/29 [facility] OFF[facility] O/P EST MOD 30 MIN [id number] Diagnos is: ICD-10- CM E11.9 Type 2 diabete s mellitu s without complic ations MARY,NID HI 08/29 [facility] Outpatient Encounter [id number] 10/08 [facility] NRV CNDJ TEST 9-10 STUDIES [id number] [id number] Diagnos is: ICD-10- CM G56.01 Carpal tunnel syndrom e, right upper limb POONAM PARTIDA 10/08 [facility] Outpatient Encounter [id number] 10/08 [facility] Outpatient Encounter [id number] CEM,MO MICHELE R 10/16 [facility] Outpatient Encounter [id number] [id number] 10/31 [facility] Outpatient Encounter [id number] ROMANA PRIEST MICHELE R 11/04 [facility] OFFICE O/P NEW MOD 45 MIN [id number] [id number] Diagnos is: ICD-10- CM G56.01 Carpal tunnel syndrom e, right upper limb PREVEL,CHR ISTOPHER D 11/19 [facility] Outpatient Encounter [id number] 11/19 [facility] Outpatient Encounter [id number] Diagnos is: ICD-10- CM Z04.89 Encount er for examina tion and observa tion for oth reasons YOCASTA TODD IEMichelle P 12/03 [facility] PH1 ASSMT&MGMT NQHP 5-10 [id number] [id number] Diagnos is: ICD-10- CM G56.01 Carpal tunnel syndrom e, right upper limb TORRES,VE COMPA 12/12 [facility] Outpatient Encounter [id number] [id number] 12/16 [facility] PH1 ASSMT&MGMT NQHP 5-10 [id number] [id number] Diagnos is: ICD-10- CM G56.01 Carpal tunnel syndrom e, right upper limb PERDOMO,SILVER MONZON D 12/23 [facility] PH1 ASSMT&MGMT NQHP 5-10 [id number] [id number] Diagnos is: ICD-10- CM G56.01 Carpal tunnel syndrom e, right upper limb TORERS,VE COMPA 12/23 [facility] OFF/OP EST MAY X REQ PHY/QHP [id number] [id number] Diagnos is: ICD-10- CM Z11.52 Encount er for screeni ng for COVID-1 9 FRANCISCO J TAY R 12/23 [facility] OFFICE O/P EST LOW 20 MIN [id number] [id number] Diagnos is: ICD-10- CM G56.01 Carpal tunnel syndrom e, right upper limb PREVEL,CHR ISTOPHER D 12/24 [facility] MEASURE BLOOD OXYGEN LEVEL [id number] [id number] Diagnos is: ICD-10- CM S44.01X A 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, right arm, init MODER,MERE DITH L 12/24 [facility] OFFICE O/P EST LOW 20 MIN [id number] [id number] Diagnos is: ICD-10- CM Z01.818 Encount er for other preproc edural examina Saurav Hennessy 12/24 [facility] Outpatient Encounter [id number] [id number] Saurav GRIFFIN 12/24 [facility] Outpatient Encounter [id number] [id number] PREVEL,CHR ISTOPHER D 12/24 [facility] CARPAL TUNNEL SURGERY [id number] [id number] 6 Diagnos is: ICD-10- CM G56.01 Carpal tunnel syndrom e, right upper limb KLAUDIA DE JESUS E 12/24 [facility] Outpatient Encounter [id number] [id number] KLAUDIA DE JESUS E 12/24 [facility] Outpatient Encounter [id number] TAHMINA REGAN E 12/24 [facility] Outpatient Encounter [id number] [id number] MICHAEL BARRERA A 12/24 [facility] SYNCH AUDIO-ONLY EST SF 10 [id number] [id number] 6 Diagnos is: ICD-10- CM G56.01 Carpal tunnel syndrom e, right upper limb PREVEL,CHR ISTOPHER D 12/25 [facility] Outpatient Encounter [id number] [id number] 12/26 [facility] OFFICE O/P EST MOD 30 MIN [id number] [id number] Diagnos is: ICD-10- CM E11.9 Type 2 diabete s mellitu s without complic ations CAMI BYRD TTHEW C 12/26 [facility] POSTOP FOLLOW-UP VISIT [id number] [id number] Diagnos is: ICD-10- CM G56.01 Carpal tunnel syndrom e, right upper limb PREVEL,CHR ISTOPHER D 01/06 [facility] Outpatient Encounter [id number] [id number] CAMI BYRD TTHEW C 01/08 [facility] N [facility] OFFICE O/P EST LOW 20 MIN [id number] [id number] Diagnos is: ICD-10- CM G56.00 Carpal tunnel syndrom e, unspeci fied upper limb ROSSYRODRICK ESH 02/03 [facility] Procedures Combined list of: 1) Procedures from Department of [facility] Affairs facilities going back up to thelast 18 months, not all VA non-surgical procedures are included; 2) All procedures from the Department of Defense facilities. Procedure Procedure Type Code Date Perfomer Comments Sourc e APPLICATION OF A MODALITY TO 1 OR MORE AREAS; HOT OR COLD PACKS 018 [facility] THERAPEUTIC PROCEDURE,1 OR MORE AREAS,EACH 15 MINUTES;NEUROMUSCULA R REEDUCATION OF MOVEMENT,BALANCE,PREMIUM AUDITOR RDINATION,KINESTHETI C SENSE,POSTURE,AND/OR PROPRIOCEPTION FOR SITTING AND/OR STANDING ACTIVITIES 018 DoD APPLICATION OF A MODALITY TO 1 OR MORE AREAS; HOT OR COLD PACKS 018 [facility] THERAPEUTIC PROCEDURE, 1 OR MORE AREAS, EACH 15 MINUTES; THERAPEUTIC EXERCISES TO DEVELOP STRENGTH AND ENDURANCE, RANGE OF MOTION AND FLEXIBILITY 018 [facility] THERAPEUTIC PROCEDURE, 1 OR MORE AREAS, EACH 15 MINUTES; THERAPEUTIC EXERCISES TO DEVELOP STRENGTH AND ENDURANCE, RANGE OF MOTION AND FLEXIBILITY 018 [facility] COLD OR HOT FLUID BOTTLE, ICE CAP OR COLLAR, HEAT AND/OR COLD WRAP, ANY TYPE 018 [facility] AUDIOMETRIC TESTING OF GROUPS 011 [facility] BLOOD PRESSURE MEASURED (CKD)(DM) 011 [facility] DETERMINATION OF REFRACTIVE STATE 011 [facility] HEPATITIS B VACCINE (HEPB), ADULT DOSAGE, 3 DOSE SCHEDULE, FOR INTRAMUSCULAR USE 011 [facility] INFLUENZA VIRUS VACCINE, TRIVALENT, LIVE (LAIV3), FOR INTRANASAL USE 010 [facility] THERAPEUTIC PROCEDURE, 1 OR MORE AREAS, EACH 15 MINUTES; THERAPEUTIC EXERCISES TO DEVELOP STRENGTH AND ENDURANCE, RANGE OF MOTION AND FLEXIBILITY [facility] UNLISTED SPECIAL SERVICE, PROCEDURE OR REPORT [facility] EDUCATIONAL SUPPLIES, SUCH BOOKS, TAPES, AND PAMPHLETS, FOR THE PATIENT'S EDUCATION AT COST TO PHYSICIAN OR OTHER QUALIFIED HEALTH STAINING MACHINE OPERATOR 010 [facility] HEPATITIS B VACCINE (HEPB), ADULT DOSAGE, 3 DOSE SCHEDULE, FOR INTRAMUSCULAR USE 010 [facility] THERAPEUTIC PROCEDURE, 1 OR MORE AREAS, EACH 15 MINUTES; THERAPEUTIC EXERCISES TO DEVELOP STRENGTH AND ENDURANCE, RANGE OF MOTION AND FLEXIBILITY [facility] SCREENING PAPANICOLAOU SMEAR; OBTAINING, PREPARING AND CONVEYANCE OF CERVICAL OR VAGINAL SMEAR TO LABORATORY 010 [facility] AUDIOMETRIC TESTING OF GROUPS 010 [facility] Traction Pelvic Traction Pelvic 95676 018 EDUARDO LÓPEZ [facility] Modalities Electrical Stimulation Unattended Modalities Electrical Stimulation Unattended 99994 018 EDUARDO LÓPEZ [facility] Modalities Heat Hot Packs Modalities Heat Hot Packs 79995 018 EDUARDO LÓPEZ [facility] Physical Therapy Neuromuscular Re-education Physical Therapy Neuromuscular Re-education 37129 018 HA SYED [facility] Physical Medicine Physical Therapy Re-Evaluation Physical Medicine Physical Therapy Re-Evaluation 31219 018 HA SYED [facility] Traction Pelvic Traction Pelvic 85698 018 GIANNA BYRD [facility] Modalities Electrical Stimulation Unattended Modalities Electrical Stimulation Unattended 18022 018 GIANNA BYRD Modalities Heat Hot Packs Modalities Heat Hot Packs 82130 018 GIANNA BYRD Exercises A isted Exercises For ROM Exercises Assisted Exercises For ROM 24039 018 HA SYED Physical Medicine Physical Therapy Re-Evaluation Physical Medicine Physical Therapy Re-Evaluation 74617 018 HA SYED Exercises A isted Exercises For ROM Exercises Assisted Exercises For ROM 80796 018 HA SYED Osteopathic Manip Treatment (OMT) 1-2 Body Regions Involved Osteopathic Manip Treatment (OMT) 1-2 Body Regions Involved 03867 018 CORNEL POLANCO Hot water bottle, ice cap or collar, heat and/or cold wrap, any type 018 CORNEL POLANCO A e ment & Intervention Blood Pre ure Measured 011 MALIK ORTEGA Determination Of Refractive State Determination Of Refractive State 01113 011 RONNIE RENEE Ophthalmological New Patient Start Comprehensive Care Ophthalmological New Patient Start Comprehensive Care 09289 011 RONNIE RENEE Hepatitis B Vaccine (Active); 20 Years and Above 011 JARET THOMAS Immunization Administration One Vaccine Immunization Administration One Vaccine 70604 011 JARET THOMAS Influenza Virus Vaccine Live Intranasal 010 ROCKY MORENO Immunization Admin By Intranasal / Oral Route One Vaccine Immunization Admin By Intranasal / Oral Route One Vaccine 62217 010 ROCKY MORENO Physical Therapy: ___ Se ion Segments, 15 Minutes Each Physical Therapy: ___ Session Segments, 15 Minutes Each 10848 010 JUNE BRAY Physical Medicine Physical Therapy Evaluation Physical Medicine Physical Therapy Evaluation 92190 010 JUNE BRAY Hepatitis B Vaccine (Active); 20 Years and Above 010 JARET THOMAS Immunization Administration One Vaccine Immunization Administration One Vaccine 52828 010 JARET THOMAS Physical Therapy: ___ Se ion Segments, 15 Minutes Each Physical Therapy: ___ Session Segments, 15 Minutes Each 64005 010 JOSETTE FUENTES [facility] Physical Medicine Physical Therapy Evaluation Physical Medicine Physical Therapy Evaluation 49035 010 JOSETTE FUENTES [facility] Screening papanicolaou smear; obtaining, preparing and conveyance of cervical or vaginal smear to laboratory 010 NIA MONSIVAIS [facility] right carpal tunnel release CARPAL TUNNEL SURGERY 35656 025 ROSS FRIED [facility] Social History Combined list of available smoking, tobacco, and other social history from Department of Defense and Veterans Affairs facilities. Social History Type Response Date Comment [facility] Tobacco smoking status [facility] NEVER USED 12/31/2023 [facility] This section is an empty social history section. [facility] Advance Directives List of completed, amended, or rescinded Advance Directives on record at Department of Veterans Affairs facilities. An actual copy of the Directive is not included. Date Advance Directive Provider Source 03/21/1996 ADVANCE DIRECTIVE HARJIT BURGOS [facility]
--- OUTSIDE RECORDS SUMMARY | 2025-02-25 10:26 | XMS_ITS | Encounter Summary ---
Author Name [facility] [place] [facility] [place] Address [address] [place] [address] Care Team Providers Care Stripper Cutter Machine Name Role Phone ANN-MARIE HERNANDEZ Primary Care [...] USPS BASIC SELF Sep 17, 2024 33A [id number] [phone] LAWRENCE BRYAN PATIENT ANTHEM [employer] [place] FEP PREFERRED PROVIDER ORGANIZAT ION (PPO) USPS BASIC SELF Sep 17, 2024 33A [id number] [phone] LAWRENCE BRYAN PATIENT ANTHEM [place] F[place] PREFERRED PROVIDER ORGANIZAT ION (PPO) USPS BASIC SELF Sep 17, 2024 33A [id number] [phone] LAWRENCE BRYAN PATIENT [place] FEP PREFERRED PROVIDER ORGANIZAT ION (PPO) USPS BASIC SELF Sep 17, 2024 33A [id number] [phone] LAWRENCE BRYAN PATIENT [employer] FEP ([id number]) PRESCRIPT ION FEPRX Nov 26, 2021 [id number] [phone] LAWRENCE BRYAN PATIENT [employer] PREFERRED PROVIDER ORGANIZAT ION (PPO) BI-ST ATE SHAWN OPMEN T Sep 17, 2023 [id number] MATTIE SHERMAN RISTOPHER SPOUSE Selected Encounter This section includes the information on record at [place] for the Encounter. Date/Time Encounter Type Encounter Description Reason Provider Source Dec 24, 2024 01:32 PM Outpatient Encounter ADMIN PAT ACTIVTIES (MASNONCT) LINDSEY REGAN Encounter Template Text not used by [place] Plan of Treatment: Future Appointments (+ 6 months) and Future Tests (+/- 45 days) The Plan of Treatment section includes future care activities for the patient from all [place] [facility] This section includes future appointments and future orders which are active, pending or scheduled. Future Appointments This section includes appointments that were scheduled to occur 6 months from the date of the Encounter, up to a maximum of 20 appointments. The data comes from all [facility] facilities. Appointment Date/Time Appointment Type Appointme nt Facility Name Dec 26, 2024 01:00 PM AMBULATORY - SURGERY . [facility] Dec 31, 2024 10:00 AM AMBULATORY - SURGERY [facility] Jan 06, 2025 08:00 AM AMBULATORY - SURGERY [facility] Feb 19, 2025 02:00 PM AMBULATORY - SURGERY [facility] Active, Pending, and Scheduled Orders This section includes a listing of several types of active, pending, and scheduled orders, including clinic medications orders, diagnostic test orders, procedure orders and consult orders; where the start date of the order is 45 days before the date of the Encounter or 45 days after the date of theEncounter. The data comes from all [place] treatment [facility]. Test Date/Time Test Type Test Details Facility Name Dec 22, 2024 12:00 AM Laboratory - Chemi stry Order TEST URINE (MA-STL) URINE YELLOW SP [facility] Dec 24, 2024 01:42 PM Pharmacy - Clinic Medication Order [facility] Lab Results: +/- 30 days of [...] Range Comment Dec 24, 2024 10:54 AM [facility] GLUCOSE,BLOOD-poct (STL) Specimen Type: BLOOD Comment: Test Performed by: [id number] Meter #: [id number] Ordering Provider: ANN-MARIE HERNANDEZ Report Released Date/Time: Dec 24, 2024 11:01 AM Reporting Lab: [facility] [address] [facility] [address] Performing Lab: [address] [address] GLUCOSE,BLOOD-p oct (STL) 83 mg/dL 72-99 Dec 23, 2024 04:02 PM [facility] COVID-19 DIAGNOSTIC (FLU/RSV)(L) Specimen Type: NASOPHARYNX [...] Dec 23, 2024 02:34 PM Reporting Lab: [facility] [address] [facility] [address] Performing Lab: [address] [address] INFLUENZA A NEG Negative INFLUENZA B NEG Negative COVID-19 (STL-PB) NEG Not Detected RSV (Cepheid) Negative Negative Dec 16, 2024 06:45 AM [facility] CBC Specimen Type: BLOOD No comment entered. Ordering Provider: FARRAH FRIED Report Released Date/Time: Nov 19, 2024 08:50 AM Reporting Lab: [address] [address] Performing Lab: [address] [address] WBC 5.5 10*3/uL 3.6-11.2 RBC 4.07 10*6/uL [...] 10*3/uL 0.00-0.20 Dec 16, 2024 06:45 AM [facility] COMPREHENSIVE METABOLIC PANEL Specimen Type: PLASMA Comment: No hemolysis noted. VERIFIED BY REPEAT Ordering Provider: FARRAH FRIED Report Released Date/Time: Nov 19, 2024 08:50 AM Reporting Lab: [address] [address] Performing Lab: [address] [address] CREATININE 0.86 mg/dL 0.6-1.1 UREA NITROGEN 10.3 [...] PM 98.3 72 150/80 15 96 0 [facility] Dec 24, 2024 10:30 AM 98.6 81 134/82 12 98 0 64 191.2 33 [facility] Advance Directives: All historical and current Section Date Range: From patient's date of to the date document was created. This section includes ALL of a patient's completed or amended [place] Advance and Rescinded Directives. The entries below indicate that a directive exists for the patient, but an actual copy is not included with this document. The data comes from all [place] facilities. Date Advance Directives Provider Source Mar 21, 1996 ADVANCE DIRECTIVE HARJIT BURGOS [facility] Encounter Notes: All associated encounter notes This section contains the clinical notes associated to the Encounter. Date/Time Encounter Note(s) Provider Source Dec 24, 2024 01:32 PM ANESTHESIOLOGY ESTEFANI WSHEET: LOCAL TITLE: ANES INTRA-OP FLOWSHEET ST STANDARD TITLE: ANESTHESIOLOGY FLOWSHEET DATE OF NOTE: DEC 24, 2024@13:32 ENTRY DATE: DEC 24, 2024@13:32:47 AUTHOR: LINDSEY REGAN COSIGNER: URGENCY: STATUS: COMPLETED Patient: ELISABETH BRAYN SSN: [id number] Date of Operation: 12/24/2024 Surgery Start Time: 12/24/2024 12:47 Surgery End Time: 12/24/2024 13:25 Anesthesia Care Start: 12/24/2024 12:27 Anesthesia Care End: 12/24/2024 13:38 Anesthesia Method: Monitored 12/24/2024 12:27 (Primary), Level Of Consciousness: Sedated, Monitors Applied, Oxygen Therapy: Mask, EtCO2 Verified: Waveform Positioning: Head Neutral, Head And Neck In Alignment With Spine, Pressure Points Padded & Checked, Eyes, Ears And Nose Free Of Pressure, Groin Free Of Pressure ASA Number: 2 Procedure: right carpal tunnel release Diagnosis: right carpal tunnel syndrome Carpal tunnel syndrome, right upper limb Holding, Anesthesia, PACU Drugs: ------- FentaNYL: 100 mcg Lidocaine: 80 mg Propofol: 110 mg Propofol gtt: 241.106 mg DexmedeTOMidine: 12 mcg Ondansetron: 4 mg Holding, Anesthesia, PACU Fluids: -------- Ringers Lactated Solution: 400 ml Resources: Aquacel foam placed on gabrielle prominence to protect skin during surgery Staff: --------- BRADLEY FRIED, SURGEON BRADLEY FRIED, ATT. SURGEON ANABEL PERDOMO, Holding Nurse NELLA CASTILLO, Holding Nurse LINDSEY BROWN PRIN. HELEN. CARO HUSSEIN ANES. JASPREET. Anesthesia Procedure: --- Procedure 12/24/2024 10:56 Line Number: 1, Level [...] Inflated 13:01 Tourniquet Deflated Total Time: 00:09:18 Procedure Date: 12/24/2024 Procedure Start Time: Procedure End Time: /tristin/ LINDSEY REGAN PATIENT SERVICES SPECIALIST, Anesthesiology Signed: 12/24/2024 13:32 LINDSEY REGAN [facility]
== END 2025-02-25 09:21 | disposition home or self-care (01) ==
LOC: ANHIMG 09:31
PROVIDERS: Visit Provider Urology
DX: N20.1 Calculus of ureter (principal)
CPT/HCPCS: 74018

== ENCOUNTER 2025-03-03 15:26 | Outpatient (CLI) | payer BC, SELFPAY ==
--- NOTE | 2025-03-03 15:52 | ECG_ITS ---
Test Date: 2025-03-03 16:01:00 Measurements Intervals [place] Rate: 73 P: 63 AK: 180 QRS: -5 QRSD: 101 T: 49 QT: 398 QTc: 441 Interpretive Statements SINUS RHYTHM POSSIBLE LEFT ATRIAL ENLARGEMENT BORDERLINE R WAVE PROGRESSION, ANTERIOR LEADS INFERIOR INFARCT, AGE INDETERMINATE BASELINE ARTIFACT- II, III AVR, AVL, AVF, V1-V3 ABNORMAL ECG No previous ECG available for comparison Electronically Signed On 03-03-2025 16:52:16 CDT by Luis Guzman D.O.
[2025-03-03 16:04] LABS: Partial Thromboplastin Time 31.6 Seconds (22.3-36.8); Prothrombin Time 13.3 Seconds (11.1-14.7)
--- OUTSIDE RECORDS SUMMARY | 2025-03-03 16:22 | XMS_ITS | Referral Summary ---
Author Organization [facility] Address [address] [place] [address] Care Team Providers Care Hand Profiler Name Role Phone Aicha Cuello MD Primary Care Provider Mariola Suarez Unavailable Jm Boyle MD Unavailable [phone] Vincent Byrd MD Unavailable [phone] Encounters Date Type Department Care Team Description 12/23/2024 Orders Only [facility] Obstetrics and Gynecology [address] [facility] [facility] [address] 7th [address] [place] [address] Isaura Olivares MD 12/22/2024 1:00 PM CDT Office Visit [facility] Obstetrics and Gynecology [address] [facility] 1st Floor [address] [place] [address] Isaura Olivares MD Low libido (Primary Dx); [...] (11/22/2022): Added automatically from request for surgery [id number] Allergic rhinitis due to animal hair and [...] on file Legal Sex 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 Gender Identity Female 10/15/2018 11:21 AM COMMERCIAL TRUCK DRIVER Sexual Orientation Not on file Occupation Industry Job Start Date Job End Date 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-way Not on file Not on file Not on file Last Filed Vital Signs Vital Sign Reading Time Taken Comments Blood Pressure 143/81 12/22/2024 1:20 PM CDT Pulse 97 12/22/2024 1:20 PM CDT Temperature 37 C (98.6 F) 10/28/2024 10:45 AM COMMERCIAL TRUCK DRIVER Respiratory Rate 18 10/28/2024 10:45 AM COMMERCIAL TRUCK DRIVER Oxygen Saturation 100% 05/01/2024 12:10 PM CDT [...] HEPATITIS C ANTIBODY Routine 11/25/2021 2:33 PM COMMERCIAL TRUCK DRIVER Screening for STD (sexually transmitted disease) THINPREP TIS PAP AND HR HPV DNA REFLEX GENOTYPES 16,18 Routine 11/18/2021 4:58 PM COMMERCIAL TRUCK DRIVER from Last 3 Months or Most Recently [...] MD LAB BLOOD ORDERABLES Fi nal Result [facility] Department [place] [address] * (ABNORMAL) POCT hemoglobin A1c (04/17/2024 11:09 AM CDT) Hgb A1C, POC 6.0(H) 4.0 - 5.6 % Est Average Gluc POC 126 mg/dL [facility] Comment: The ADA recommends reporting an estimated Average Glucose (eAG) with all Hemoglobin A1c results using the equation derived from a study of 507 normal and diabetic adults. Minority populations were underrepresented and children were not included. (Diabetes Care 31:6661-5589, 2008). The eAG is not equivalent to a fasting glucose. Blood 04/17/2024 11:0 9 AM CDT 04/17/2024 11:09 AM CDT Isaura Olivares MD POINT OF CARE TEST ROGER MCCLENDON Final Result Performing Organization Address City/[facility]/ZIP Co de Phone Number [facility] [address] [facility] Department [place] [address] * Albumin Creatinine Ratio, Urine (03/28/2023 3:11 [...] ORDERABLES Zora l Result Performing Organization Address City/[facility]/ZIP Co de Phone Number [facility] [address] [place] [address] * Lipid panel (05/12/2022) Blood specimen (specimen) us Toña Sandoval MD LAB BLOOD ORDERABLES Zora l Result Performing Organization Address City/[facility]/ZIP Co de Phone Number [facility] * SCREENING [...] prior imaging studies performed at [facility] on 10/29/2015, and at [facility] [employer], [place] on 10/11/2018 and 12/15/2020. There are [...] compared to prior imaging studies performed at [facility] on 10/29/2015,and at [facility] [employer] [place] on 10/11/2018 and 12/15/2020. There are scattered areas of fibroglandular density. There is no suspicious abnormality in either breast. Impression: There is no mammographic evidence of malignancy. Annual screening mammography is recommended. OVERALL FINAL ASSESSMENT: BI-RADS CATEGORY 1: Negative. Linn Gómez NP IM MAMMO PROCEDURES Final Result * Hepatitis C antibody (11/25/2021 2:33 PM COMMERCIAL TRUCK DRIVER) Hep C Ab NON-REACTI VE NON-REACT DANELLE [facility] SIGNAL TO CUT-OFF 0.04 <1.00 [facility] Comment: HCV antibody was non-reactive. There is no laboratory evidence of HCV infection. In most cases, no further action is required. However, if recent HCV exposure is suspected, a test for HCV RNA (test code 28695) is suggested. For additional information please refer to http://education.[employer].Demandbase/faq/FZI07l7 (This link is being provided for informational/ educational purposes only.) Blood specimen (specimen) 11/25/2021 2:33 PM COMMERCIAL TRUCK DRIVER 11/25/2021 2:34 PM COMMERCIAL TRUCK DRIVER Linn Gómez NP LAB MICROBIOLOGY - G ENERAL ORDERABLES Final Result [email or web address] [address] [address] * THINPREP TIS PAP AND HR HPV DNA REFLEX GENOTYPES 16,18 (11/18/2021 4:58 PM COMMERCIAL TRUCK DRIVER) CLINICAL INFORMATION: SCREENING PERIMENOPAUSAL [facility] LMP 11/02/2021 [facility] Previous Pap INFORMATION NOT PROVIDED [facility] TMAT [facility] Prev. Bx INFORMATION NOT PROVIDED [facility] SOURCE: Cervix, Endocervix [facility] Pap, specimen adequacy Satisfactory for evaluation. Endocervical/mckee sformation zone component present. [employer] [facility] HPV interp Negative for intraepithelial lesion or malignancy. [employer] [facility] COMMENTS This Pap test has been evaluated with computer assisted technology. [facility] Alignment Technician MMW, CT(ASCP) CT screening location: [place] [address] TMAT [facility] Comment [facility] Comment: EXPLANATORY NOTE: The Pap is a [...] E6/E7 Not Detected NOT DETECTED [facility] Comment: Not Detected High Risk HPV types (16,18,31,33,35,39,45,51,52, 56,58,59,66,68) were not detected. Other HPV types which cause anogenital lesions may be present. The significance of the other types of HPV in malignant processes has not been established. Methodology: Real Time PCR 11/18/2021 4:58 PM COMMERCIAL TRUCK DRIVER 11/21/2021 5:31 AM COMMERCIAL TRUCK DRIVER Linn Gómez NP LAB CYTOLOGY ORDERAB LES Final Result [email or web address] [address] [place] [address] [facility]/[place] [address] [place] [address] from Last 3 Months or Most Recently Relevant to Health Maintenance Insurance [facility] [employer] Care Teams Hand Profiler Relationship Specialty Start Date End Date Aicha Cuello MD [address] [place] [address] PCP - General Family Practice 10/15/18 Mariola Suarez PA [facility] [place] [address] Physician English As A Second Language Instructor Dermatology 04/22/21 Jm Boyle MD [address] [place] [address] Rn Enterostomal Dermatology 04/22/21 Vincent Byrd MD [address] [place] [address] Consulting Physician Plastic Surgery 12/05/22
--- OUTSIDE RECORDS SUMMARY | 2025-03-03 16:22 | XMS_ITS | Encounter Summary ---
Author Organization [facility] Address [address] [place] [address] Care Team Providers Care Hospital Internship Name Role Phone Aicha Cuello MD Primary Care Provider Reason for Visit * Diagnostic Imaging (Routine) - Closed Specialty Diagnoses / Procedures Referred By Erisac t Referred To Contact Diagnoses Lung nodule Procedures Breast Imaging Screening Outside Reference Referral, Self Referral ID Status Reason Start Date Expiration Date Visits Re quested Visits Authorized [id number] Closed 01/12/2022 02/11/2023 1 1 Encounter Details Date Type Department Care Team (Late st Contact Info) Description 12/15/2020 Hospital Encounter [facility] [address] [place] [address] Social History Tobacco Use Types Packs/Day Years [...] on file 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 [place] [address] PCP - General Family Practice 10/15/18 documented as of this encounter
--- OUTSIDE RECORDS SUMMARY | 2025-03-03 16:22 | XMS_ITS | Clinical Summary ---
Author Organization [facility] Address [address] [place] [address] Care Team Providers Care Golf Course Superintendent Name Role Phone Aicha Cuello MD Primary Care Provider Mariola Suarez Unavailable [phone] Jm Boyle MD Unavailable [phone] Vincent Byrd MD Unavailable [phone] Allergies Active Allergy Reactions Criticality Noted Date [...] (11/22/2022): Added automatically from request for surgery [id number] Allergic rhinitis due to animal hair and [...] Department Care Team Description 12/23/2024 Orders Only [facility] Obstetrics and Gynecology [address] [facility] 7th [address] [place] [address] Isaura Olivares MD 12/22/2024 1:00 PM CDT Office Visit [facility] Obstetrics and Gynecology [address] [facility] 1st [address] [place] [address] Isaura Olivares MD Low libido (Primary Dx); [...] on file 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 Gender Identity Female 10/15/2018 11:21 AM VICE INVESTIGATOR Sexual Orientation Not on file Occupation Industry [...] 37 C (98.6 F) 10/28/2024 10:45 AM VICE INVESTIGATOR Respiratory Rate 18 10/28/2024 10:45 AM VICE INVESTIGATOR Oxygen Saturation 100% 05/01/2024 12:10 PM CDT [...] HEPATITIS C ANTIBODY Routine 11/25/2021 2:33 PM VICE INVESTIGATOR Screening for STD (sexually transmitted disease) THINPREP TIS PAP AND HR HPV DNA REFLEX GENOTYPES 16,18 Routine 11/18/2021 4:58 PM VICE INVESTIGATOR from Last 3 Months or Most Recently [...] MD LAB BLOOD ORDERABLES Fi nal Result [facility] Department of Laboratories [place], [place] [id number] * (ABNORMAL) POCT hemoglobin A1c (04/17/2024 11:09 [...] and children were not included. (Diabetes Care 31:[id number], 2008). The eAG is not equivalent to a fasting glucose. Blood 04/17/2024 11:0 9 AM CDT 04/17/2024 11:09 AM CDT us Isaura Olivares MD POINT OF CARE TEST [place] Final Result [facility] [place] [address] * Albumin Creatinine Ratio, Urine (03/28/2023 3:11 [...] URINE ORDERABLES Zora l Result [facility] [address] [place] [address] * Lipid panel (05/12/2022) Blood specimen (specimen) [...] compared to prior imaging studies performed at [facility] on 10/29/2015, and at [facility] [place], [place] on 10/11/2018 and 12/15/2020. There are [...] compared to prior imaging studies performed at [facility] on 10/29/2015,and at [facility] [place], [place] on 10/11/2018 and 12/15/2020. There are scattered areas of fibroglandular density. There is no suspicious abnormality in either breast. Impression: There is no mammographic evidence of malignancy. Annual screening mammography is recommended. OVERALL FINAL ASSESSMENT: BI-RADS CATEGORY 1: Negative. Linn Gómez NP IMG MAMMO PROCEDURES Final Result * Hepatitis C antibody (11/25/2021 2:33 PM VICE INVESTIGATOR) Hep C Ab NON-REACTI VE NON-REACT DANELLE [facility] SIGNAL TO CUT-OFF 0.04 <1.00 [facility] Comment: HCV antibody was non-reactive. There is no laboratory evidence of HCV infection. In most cases, no further action is required. However, if recent HCV exposure is suspected, a test for HCV RNA (test code 26091) is suggested. For additional information please refer to http://education.FullContact/faq/KRG86r0 (This link is being provided for informational/ educational purposes only.) Blood specimen (specimen) 11/25/2021 2:33 PM VICE INVESTIGATOR 11/25/2021 2:34 PM VICE INVESTIGATOR Linn Gómez NP LAB MICROBIOLOGY - G ENERAL ORDERABLES Final Result [facility] [address] [place] [address] * THINPREP TIS PAP AND HR HPV DNA REFLEX GENOTYPES 16,18 (11/18/2021 4:58 PM VICE INVESTIGATOR) Pathologist [facility] CLINICAL INFORMATION: SCREENING PERIMENOPAUSAL [facility] LMP 11/02/2021 [facility] Previous Pap INFORMATION NOT PROVIDED [facility] Prev. Bx INFORMATION NOT PROVIDED [facility] SOURCE: Cervix, Endocervix [facility] Pap, specimen adequacy Satisfactory for evaluation. Endocervical/mckee sformation zone component present. [facility] HPV interp Negative for intraepithelial lesion or malignancy. [facility] COMMENTS This Pap test has been evaluated with computer assisted technology. [facility] District Agent MMW, CT(ASCP) CT screening location: [place] [address] [facility] Comment [facility] Comment: EXPLANATORY NOTE: The Pap is [...] E6/E7 Not Detected NOT DETECTED [facility] Comment: Not Detected High Risk HPV types (16,18,31,33,35,39,45,51,52, 56,58,59,66,68) were not detected. Other HPV types which cause anogenital lesions may be present. The significance of the other types of HPV in malignant processes has not been established. Methodology: Real Time PCR 11/18/2021 4:58 PM VICE INVESTIGATOR 11/21/2021 5:31 AM VICE INVESTIGATOR Linn Gómez NP LAB CYTOLOGY ORDERAB LES Final Result [facility] [address] [place] [address] [facility] [address] [place] [address] from Last 3 Months or Most Recently Relevant to Health Maintenance Insurance [facility] [employer] [facility] [employer] Care Teams Golf Course Superintendent Relationship Specialty Start Date End Date Aicha Cuello MD [address] [facility] [address] PCP - General Family Practice 10/15/18 Mariola Suarez PA [address] [facility] [place] [address] Physician Tetryl Boiling Tub Operator Dermatology 04/22/21 Jm Boyle MD [address] [facility] [place] [address] Winding Operator Dermatology 04/22/21 Vincent Byrd MD [address] [facility] [place] [address] Consulting Physician Plastic Surgery 12/05/22
--- OUTSIDE RECORDS SUMMARY | 2025-03-03 16:22 | XMS_ITS | Data Portability ---
[facility] Organization [facility] Address [address] [place] [address] Assessment No assessment recorded. Plan of Treatment Reminders Order Date Submit Date Provider Last Modified By Organization Details Last Modified Time Details Appointments None recorded. Lab HbA1c (hemoglobi n A1c), blood 2017 018 [facility] (Lab), [address], [place], [address], 8 15:53:41 hepatitis panel (A+B+C), acute, serum 2017 018 [facility] [address], [place], [address], 8 15:53:41 CMP, serum or plasma 2017 018 [facility] [address], [place], [address], 8 15:53:41 HbA1c (hemoglobi n A1c), blood 2016 017 [facility] (Lab), [address], [place], [address], 7 06:17:11 CMP, serum or plasma 2016 017 [facility] (Lab), [address], [place], [address], 7 06:17:10 lipid panel w/ direct LDL, serum 2016 017 [facility] (Lab), [address], [place], [address], 7 06:17:11 glucose, fingerstic k, blood 2016 017 [email or web address] In-Office Order, Internal Use Only DO Not Attach Compendium DO Not Attach Compendium, Do Not Delete/merge, [id number] 7 09:38:46 TSH, serum or plasma 2016 017 [facility] (Lab), [address], [place], [address], 7 20:33:48 CBC 2016 017 [facility] (Lab), [address], [place], [address], 7 18:59:07 CMP, serum or plasma 2016 017 [facility] (Lab), [address], [place], [address], 7 20:38:54 HbA1c (hemoglobi n A1c), blood 2016 017 [facility] (Lab), [address], [place], [address], 7 08:29:52 lipid panel w/ direct LDL, serum 2016 017 [facility] (Lab), [address], [place], [address], 7 20:38:34 Referral None recorded. Procedures None recorded. Surgeries None recorded. Imaging None recorded. Medication Orders metformin 500 mg tablet 2017 018 [email or web address], [address], [place], [place], [id number], 8 15:53:02 atorvastat in 40 mg tablet 2017 018 INTERFACE [facility] #94727, [address], [place], [place], [id number], 8 15:52:48 metformin 500 mg tablet 2016 017 [facility] #95538, [address], [place], [place], [id number], 7 10:53:05 atorvastat in 40 mg tablet 2016 017 [facility] #35928, [address], [place], [place], [id number], 7 10:53:05 atorvastat in 40 mg tablet 2016 017 [facility] #83588, [address], [place], [place], [id number], 7 11:53:24 metformin 500 mg tablet 2016 017 [facility] #05787, [address] , [place], [place], [id number], 7 11:53:30 Patient TargetsNo targets recorded. Patient Instructions Encounter Date Encounter Id Patient Instructions Last Modified By Organization Details Last Modified Time 02/07/2017 [id number] When You Want to Lose Weight: Care Instructions Not available 02/07/2017 12:48:13 learning about type 2 diabetes Not available 02/07/2017 12:48:13 type 2 diabetes: care instructions Not available 02/07/2017 12:48:13 hypothyroidism: care instructions Not available 02/07/2017 12:48:13 high cholesterol : care instructions Not available 02/07/2017 12:48:13 obtain old records hold meds for now. [email or web address] Not available 02/07/2017 12:05:58 03/09/2017 [id number] When You Want to Lose Weight: Care Instructions Not available 03/09/2017 14:09:16 learning about type 2 diabetes Not available 03/09/2017 14:09:15 type 2 diabetes: care instructions Not available 03/09/2017 14:09:16 hypothyroidism: care instructions Not available 03/09/2017 14:09:16 high cholesterol : care instructions Not available 03/09/2017 14:09:16 06/12/2017 [id number] When You Want to Lose Weight: Care Instructions Not available 06/12/2017 11:49:57 hypothyroidism: care instructions Not available 06/12/2017 11:49:57 high cholesterol : care instructions Not available 06/12/2017 11:49:56 refused flu vaccine balbarcha Not available 06/12/2017 10:52:15 12/04/2017 [id number] When You Want to Lose Weight: Care [...] DO Not Attach Compendium, Do Not Delete/merge, [id number] 03/09/2017 11:38:35 02/08/20 17 02/07/2017 CBC WBC 6.7 K/uL 3.4-10 .8 Not Available [facility] (Lab) [address], [place], [address], 02/07/2017 18:59:07 02/08/20 17 02/07/2017 CBC red blood count 4.5 M/uL 4.2-5. 4 Not Available [facility] (Lab) [address] [place], [address], 02/07/2017 18:59:07 02/08/20 17 02/07/2017 CBC hemoglobin 13.1 g/dL 11.5-1 5.5 Not Available [facility] (Lab) [address] [place], [address], 02/07/2017 18:59:07 02/08/20 17 02/07/2017 CBC hematocrit 39.8 % 36.0-4 8.0 Not Available [facility] (Lab) [address] [place], [address], 02/07/2017 18:59:07 02/08/20 17 02/07/2017 CBC MCV 88 fL 80-95 Not Available [facility] (Lab) [address], [place], [address], 02/07/2017 18:59:07 02/08/20 17 02/07/2017 CBC MCHC 33 g/dL 32-36 Not Available [facility] (Lab) [address] [place], [address], 02/07/2017 18:59:07 02/08/20 17 02/07/2017 CBC platelets 304 K/uL 155-37 9 Not Available [facility] (Lab) [address], [place], [address], 02/07/2017 18:59:07 02/08/20 17 02/07/2017 CBC RDW 13.4 % 11.5-1 4.5 Not Available [facility] (Lab) [address] [place], [address], 02/07/2017 18:59:07 02/08/20 17 02/07/2017 TSH, serum or plasm a TSH 1.34 uIU/m L 0.50-4 .50 Not Available [facility] (Lab) [address] [place], [address], 02/07/2017 20:33:48 02/08/20 17 02/07/2017 lipid panel w/ direc t LDL, serum cholestrol 313.0 mg/dL 140.0- 200.0 high Not Available [facility] (Lab) [address] [place], [address], 02/07/2017 20:38:34 02/08/20 17 02/07/2017 lipid panel w/ direc t LDL, serum triglyceride s 227 mg/mL 150-19 9 high Not Available [facility] (Lab) [address], [place], [address], 02/07/2017 20:38:34 02/08/20 17 02/07/2017 lipid panel w/ direc t LDL, serum HDL cholesterol 51.0 mg/dL 40.0-1 00.0 Not Available [facility] (Lab) [address], [place], [address], 02/07/2017 20:38:34 02/08/20 17 02/07/2017 lipid panel w/ direc t LDL, serum LDL direct 242 mg/dL <=100 high Not Available [facility] (Lab) [address] [place], [address], 02/07/2017 20:38:34 02/08/20 17 02/07/2017 lipid panel w/ direc t LDL, serum cholhdl 6.10 mg/dL 0.00-4 .98 high Not Available [facility] (Lab) [address], [place], [address], 02/07/2017 20:38:34 02/08/20 17 02/07/2017 CMP, serum or plasm a glucose, serum 104 mg/dL 65-99 high Not Available [facility] (Lab) [address] [place], [address], 02/07/2017 20:38:54 02/08/20 17 02/07/2017 CMP, serum or plasm a BUN 9 mg/dL 8-26 Not Available [facility] (Lab) [address] [place], [address], 02/07/2017 20:38:54 02/08/20 17 02/07/2017 CMP, serum or plasm a creatinine, serum 0.60 mg/dL 0.50-1 .40 Not Available [facility] (Lab) [address], [place], [address], 02/07/2017 20:38:54 02/08/20 17 02/07/2017 CMP, serum or plasm a BUN/creatnin e ratio 15.0 Not Available [facility] (Lab) [address], [place], [address], 02/07/2017 20:38:54 02/08/20 17 02/07/2017 CMP, serum or plasm a sodium, serum 140.0 mEq/L 136.0- 144.0 Not Available [facility] (Lab) [address] [place], [address], 02/07/2017 20:38:54 02/08/20 17 02/07/2017 CMP, serum or plasm a potassium, serum 4.3 mmol/ L 3.5-5. 3 Not Available [facility] (Lab) [address] [place], [address], 02/07/2017 20:38:54 02/08/20 17 02/07/2017 CMP, serum or plasm a chloride, serum 100 mmol/ l 101-11 1 low Not Available [facility] (Lab) [address] [place], [address], 02/07/2017 20:38:54 02/08/20 17 02/07/2017 CMP, serum or plasm a carbon dioxide total 23.8 mmol/ L 21.0-3 2.0 Not Available [facility] (Lab) [address] [place], [address], 02/07/2017 20:38:54 02/08/20 17 02/07/2017 CMP, serum or plasm a aniongp 21.0 mmol/ L Not Available [facility] (Lab) [address] [place], [address], 02/07/2017 20:38:54 02/08/20 17 02/07/2017 CMP, serum or plasm a calcium, serum 9.3 mg/dL 8.2-10 .0 Not Available [facility] (Lab) [address] [place], [address], 02/07/2017 20:38:54 02/08/20 17 02/07/2017 CMP, serum or plasm a total protein 7.3 g/dL 6.7-8. 2 Not Available [facility] (Lab) [address] [place], [address], 02/07/2017 20:38:54 02/08/20 17 02/07/2017 CMP, serum or plasm a albumin, serum 4.6 g/dL 3.5-5. 5 Not Available [facility] (Lab) [address] [place], [address], 02/07/2017 20:38:54 02/08/20 17 02/07/2017 CMP, serum or plasm a agratio 1.7 Not Available [facility] (Lab) [address] [place], [address], 02/07/2017 20:38:54 02/08/20 17 02/07/2017 CMP, serum or plasm a bilt 0.6 mg/dL 0.2-1. 0 Not Available [facility] (Lab) [address] [place], [address], 02/07/2017 20:38:54 02/08/20 17 02/07/2017 CMP, serum or plasm a AST 56.0 U/L 10.0-4 2.0 high Not Available [facility] (Lab) [address] [place], [address], 02/07/2017 20:38:54 02/08/20 17 02/07/2017 CMP, serum or plasm a ALT 66.0 U/L 10.0-6 0.0 high Not Available [facility] (Lab) [address] [place], [address], 02/07/2017 20:38:54 02/08/20 17 02/07/2017 CMP, serum or plasm a alk phos 78.0 IU/L 42.0-1 21.0 Not Available [facility] (Lab) [address] [place], [address], 02/07/2017 20:38:54 02/08/20 17 02/07/2017 CMP, serum or plasm a osmol 278.0 mOsm/ L 275.0- 301.0 Not Available [facility] (Lab) [address] [place], [address], 02/07/2017 20:38:54 02/08/20 17 02/07/2017 CMP, serum or plasm a eGFR, AM 140 m/lmi n/1.7 3_m >=60 Not Available [facility] (Lab) [address] [place], [address], 02/07/2017 20:38:54 02/08/20 17 02/07/2017 CMP, serum or plasm a eGFR, non- AM 116 mL/mi n/1.7 3/m >=60 Not Available [facility] (Lab) [address], [place], [address], 02/07/2017 20:38:54 02/08/20 17 02/08/2017 TSH, serum or plasm a TSH 1.400 uIU/m L 0.450- 4.500 Not Available [facility] (Lab) [address] [place], [address], 02/08/2017 08:27:45 02/08/20 17 02/08/2017 TSH, serum or plasm a T4,free(dire ct) 1.12 NG/dL 0.82-1 .77 Not Available [facility] (Lab) [address] [place], [address], 02/08/2017 08:27:45 02/08/20 17 02/08/2017 HbA1c (hemo globi n A1c), blood hemoglobin A1C 6.8 % 4.8-5. 6 high . Pre-d iabet es: 5.7 - 6.4 Diabe sj: >6.4 Glyce waleska contr ol for adult s with diabe sj: <7.0 Not Available [facility] (Lab) [address], [place], [address], 02/08/2017 08:29:52 06/12/2006/13/2017 CMP, serum or plasm a glucose, serum 106 mg/dL 65-99 above high normal Not Available [facility] ([facility]) [address] [place], [address], 2017 06:17:10 06/12/2006/13/2017 CMP, serum or plasm a BUN 9 mg/dL 6-24 Not Available [facility] ([facility]) [address] [place], [address], 2017 06:17:10 06/12/2006/13/2017 CMP, serum or plasm a creatinine, serum 0.59 mg/dL 0.57-1 .00 Not Available [facility] ([facility]) [address] [place], [address], 2017 06:17:10 06/12/2006/13/2017 CMP, serum or plasm a eGFR if nonafricn AM 112 mL/mi n/1.7 3 >59 Not Available [facility] ([facility]) [address] [place], [address], 2017 06:17:10 06/12/2006/13/2017 CMP, serum or plasm a eGFR if africn AM 129 mL/mi n/1.7 3 >59 Not Available [facility] ([facility]) [address] [place], [address], 2017 06:17:10 06/12/2006/13/2017 CMP, serum or plasm a BUN/creatini ne ratio 15 9-23 Not Available [facility] ([facility]) [address] [place], [address], 2017 06:17:10 06/12/2006/13/2017 CMP, serum or plasm a sodium, serum 139 mmol/ L 134-14 4 Not Available [facility] ([facility]) [address] [place], [address], 2017 06:17:10 06/12/2006/13/2017 CMP, serum or plasm a potassium, serum 4.3 mmol/ L 3.5-5. 2 Not Available [facility] ([facility]) [address] [place], [address], 2017 06:17:10 06/12/2006/13/2017 CMP, serum or plasm a chloride, serum 100 mmol/ L 96-106 Not Available [facility] ([facility]) [address] [place], [address], 2017 06:17:10 06/12/2006/13/2017 CMP, serum or plasm a carbon dioxide, total 22 mmol/ L 18-29 Not Available [facility] ([facility]) [address] [place], [address], 2017 06:17:10 06/12/2006/13/2017 CMP, serum or plasm a calcium, serum 9.3 mg/dL 8.7-10 .2 Not Available [facility] ([facility]) [address] [place], [address], 2017 06:17:10 06/12/2006/13/2017 CMP, serum or plasm a protein, total, serum 7.1 g/dL 6.0-8. 5 Not Available [facility] ([facility]) [address] [place], [address], 2017 06:17:10 06/12/20 17 2017 CMP, serum or plasm a albumin, serum 4.4 g/dL 3.5-5. 5 Not Available [facility] ([facility]) [address] [place], [address], 2017 06:17:10 06/12/20 17 2017 CMP, serum or plasm a globulin, total 2.7 g/dL 1.5-4. 5 Not Available [facility] ([facility]) [address] [place], [address], 2017 06:17:10 06/12/2006/13/2017 CMP, serum or plasm a A/G ratio 1.6 1.2-2. 2 Not Available [facility] ([facility]) [address] [place], [address], 2017 06:17:10 06/12/2006/13/2017 CMP, serum or plasm a bilirubin, total 0.6 mg/dL 0.0-1. 2 Not Available [facility] ([facility]) [address] [place], [address], 2017 06:17:10 06/12/2006/13/2017 CMP, serum or plasm a alkaline phosphatase, S 86 IU/L 39-117 Not Available [facility] ([facility]) [address] [place], [address], 2017 06:17:10 06/12/2006/13/2017 CMP, serum or plasm a AST (SGOT) 53 IU/L 0-40 above high normal Not Available [facility] ([facility]) [address] [place], [address], 2017 06:17:10 06/12/2006/13/2017 CMP, serum or plasm a ALT (SGPT) 73 IU/L 0-32 above high normal Not Available [facility] ([facility]) [address] [place], [address], 2017 06:17:10 06/12/20 17 2017 lipid panel , serum cholesterol, total 160 mg/dL 100-19 9 Not Available [facility] ([facility]) [address] [place], [address], 2017 06:17:11 06/12/20 17 2017 lipid panel , serum triglyceride s 137 mg/dL 0-149 Not Available [facility] ([facility]) [address] [place], [address], 2017 06:17:11 06/12/20 17 2017 lipid panel , serum HDL cholesterol 51 mg/dL >39 Not Available [facility] ([facility]) [address] [place], [address], 2017 06:17:11 06/12/20 17 2017 lipid panel , serum VLDL cholesterol gio 27 mg/dL 5-40 Not Available [facility] ([facility]) [address] [place], [address], 2017 06:17:11 06/12/20 17 2017 lipid panel , serum LDL cholesterol calc 82 mg/dL 0-99 Not Available [facility] ([facility]) [address] [place], [address], 2017 06:17:11 06/12/2006/13/2017 lipid panel , serum comment: [employer] Not Available [facility] ([facility]) [address] [place], [address], 2017 06:17:11 06/12/20 17 2017 HbA1c (hemo globi n A1c), blood hemoglobin A1C 6.7 % 4.8-5. 6 above high normal Pre-d iabet es: 5.7 - 6.4 Diabe sj: >6.4 Glyce waleska contr ol for adult s with diabe sj: <7.0 Not Available [facility] ([facility]) [address], [place], [address], 2017 06:17:11 Result Notes None recorded. Problems Name Problem SNOMED Code Status Onset Date Resolution Date Notes Provider Name and Address Organization Details Recorded Time Liver enzymes level above reference range 714544151 Active 2017 Rush Lennon MD Attn: Gissell drew,[address] [facility], [place], [address], [facility] 8 15:52:02 Obesity 194383132 Active 2016 Rush Lennon MD Attn: Gissell drew,[address] [facility], [place], [address], [facility] 7 11:59:17 Hypothyroi dism 42206508 Active 2016 not on meds. not on meds for years Rush Lennon MD Attn: Gissell drew,[address] [facility], [place], [address], [facility] 7 11:59:37 Hyperlipid emia 49393587 Active 2016 recently diagnosed Rush Lennon MD Attn: Gissell russell,[address] [facility], [place], [address], [facility] 7 11:59:53 Type 2 diabetes mellitus 75863964 Active 2016 new onset / not on meds Rush Lennon MD Attn: Gissell russell,[address] [facility], [place], [address], [facility] 7 12:00:10 Problem Notes None recorded. Procedures Surgical History Date Name Laterality Status Provider Name and Address Organization Details Recorded Time Diabetic Foot Exam completed Altagracia Johnson MA [facility] 06/12/2017 10:26:52 Imaging Results None recorded. Procedure [...] Updated DateTime 8 162.56 cm 38.6 kg/m2 431516. 28 g 76 /min 24 /min 98.2 [degF] 110 mm[Hg] 80 mm[Hg] Altagracia Johnson MA [facility] 8 15:30:11 Date Recorded Body height Body weight Body mass index (BMI) Heart rate Respiratory rate Body temperature Systolic blood pressure Diastolic blood pressure Provider Name and Address Organization Details Last Updated DateTime 7 162.56 cm 922088. 61 g 40.2 kg/m2 76 /min 24 /min 98.1 [degF] 128 mm[Hg] 80 mm[Hg] Altagracia Johnson MA [facility] 7 11:46:12 Date Recorded Body height Body mass index (BMI) Body weight Heart rate Respiratory rate Body temperature Systolic blood pressure Diastolic blood pressure Provider Name and Address Organization Details Last Updated DateTime 7 162.56 cm 40.9 kg/m2 818274. 98 g 76 /min 24 /min 98.5 [degF] 130 mm[Hg] 100 mm[Hg] Altagracia Johnson MA [facility] 7 11:36:03 Date Recorded Body height Body mass index (BMI) Body weight Heart rate Respiratory rate Body temperature Systolic blood pressure Diastolic blood pressure Provider Name and Address Organization Details Last Updated DateTime 7 162.56 cm 40.2 kg/m2 911872. 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 None Information not available 02/07/2017 Mental Status None recorded. Family History Nothing Reported. Medical History No medical history recorded. Gynecological HistoryNo gynecological history recorded. Obstetrics History GPAL:G 0 P 0 0 0 0 Past Encounters Encounter ID Performer Location Encounter Start Date Encounter Closed Date Diagnosis/Indication Diagnosis SNOMED-CT Code Diagnosis ICD10 Code Diagnosis Note [id number] Rush Lennon MD [facility] (Adult/Fa m Med) [address] [place] [phone] 02/07/2017 11:23:41 02/13/2017 14:29:19 Type 2 diabetes mellitus 71388216 E11.9 newly diagnosedn ot on any meds.obtai n labs today Hyperlipidemia 23720907 E78.5 Hypothyroidism 75139320 E03.9 not on any meds. obtain TSH Obesity 253019309 E66.9 [id number] Rush Lennon MD [facility] (Adult/Fa m Med) [address] [place] [phone] 03/09/2017 11:27:15 03/12/2017 14:54:17 Diabetes mellitus 91610259 E11.9 discussed with pt Type 2 tanika betes mellitus 00681300 E11.9 Hyperlipidemia 96366604 E78.5 start Atorvastat in Hypothyroidism 88449439 E03.9 not on any meds. obtain TSH Obesity 839276349 E66.9 [id number] Rush Lennon MD [facility] (Adult/Fa m Med) [address] [place] [address] 06/12/2017 10:05:01 06/20/2017 12:16:02 Hyperlipidemia 04022155 E78.5 continue Atorvastat inlabs today Hypothyroidism 45701716 E03.9 not on any meds.jennifer l TSH Obesity 661941604 E66.9 diet/exerc ise Type 2 tanika betes mellitus 23627360 E11.9 continue meds. [id number] Rush Lennon MD [facility] (Adult/Fa m Med) [address] [place] [address] 12/04/2017 15:21:41 12/06/2017 11:48:54 Type 2 diabetes mellitus 02303756 E11.9 continue meds. Hyperlipidemia 06269884 E78.5 continue Atorvastat inlabs today Obesity 541803492 E66.9 diet/exerc ise Liver enzy mes level above reference range 672051318 R74.8 secondary to Obesity/hy per;lipide estelle or statin. R/O viral.repe at labshepati tis profile Health Concerns Section Related Observation LastModified by Organization Detai ls LastModified Time None Recorded Concern Status LastModified by Organization Details LastModified Time None Recorded Advance Directives Directive N: Payers Insurance Date Sequence Insurance Name Policy Number Policy Ferreira Covered Member ID Ferreira Member ID Guarantor Name 12/01/2017 1 [id number] Armida Davis [id number] Armida Davis Notes Date Note Type Note Provider Name and Address Organization Details Recorded Time 02/07/2017 text/html no complaints Rush Lennon MD Attn: [address],[address] [place], [address], [facility] 02/07/2017 12:06:29 03/09/2017 text/html F/U Rush Lennon MD Attn: [address] [place], [address], [facility] [place] 03/09/2017 11:53:37 06/12/2017 text/html no new complaints Rush Lennon MD Attn: Accounting,[address] [place], [address], [facility] 06/12/2017 10:53:47 12/04/2017 text/html no new complaints Rush Lennon MD Attn: [address] [place], [address], [facility] 12/04/2017 15:53:03 OBGyn Episode No OBEpisode recorded.
--- OUTSIDE RECORDS SUMMARY | 2025-03-03 16:23 | XMS_ITS | Encounter Summary ---
Author Organization [facility] Address [address] [place] [address] Care Team Providers Care Accounts Payable Representative Name Role Phone Aicha Cuello MD Primary Care Provider [phone] Encounter Details Date Type Department Care Team (Late Contact Info) Description 11/09/2021 Augustine Temperature Management Message Enc [address] [address] [employer] Provider appt Social History Tobacco Use Types Packs/Day Years Used Date Smoking Tobacco: Never Smokeless Tobacco: Never Alcohol Use Standard Drinks/Week Comments Not Currently 0 (1 standard drink = 0.6 oz pur e alcohol) PHQ-2 Answer Date Recorded PHQ-2 Score - If the patient scores above 3, please move on to questions 3-9 1 11/07/2021 Comments No Sex and Gender Information Value Date Recorded Sex Assigned at Female 10/10/2024 3:28 PM CANDY ROLLER Legal Sex Female 8:27 PM CDT Gender Identity Female 11/06/2024 2:42 PM CANDY ROLLER Sexual Orientation Not on file COVID-19 Exposure Response Date Recorded In the last 10 days, have yo u been in contact with someone who was confirmed or suspected to have Coronavirus/COVID-19? No / Unsure 11/07/2021 10:26 AM CANDY ROLLER documented as of this encounter Plan of Treatment Upcoming Encounters Date Type Department Care Team (Late Contact Info) Description 04/27/2025 2:40 PM CDT Office Visit [address] [address] Aicha Cuello MD [address] [place] [address] documented as of this encounter Visit Diagnoses Not on filedocumented in this encounter Additional Health Concerns Assessment Noted Time PHQ-9 Depression Total Score: 3 11/07/19 22 10:32 AM CANDY ROLLER documented as of this encounter Care Teams Accounts Payable Representative Relationship Specialty Start Date End Date Aicha Cuello MD [address] [place] [address] PCP - General FAMILY PRACTICE 08/21/18 documented as of this encounter
--- OUTSIDE RECORDS SUMMARY | 2025-03-03 16:23 | XMS_ITS | Encounter Summary ---
Author Organization [facility] Address [address] [place] [address] Care Team Providers Care Fuel Technician Name Role Phone Aicha Cuello MD Primary Care Provider [phone] Encounter Details Date Type Department Care Team (Late Contact Info) Description 07/25/2024 MyChart Message Enc [address] [address] Aicha Cuello MD [address] [place] [address] Back pain Social History Tobacco Use Types Packs/Day Years Used Date Smoking Tobacco: Never Smokeless Tobacco: Never Alcohol Use Standard Drinks/Week Comments Not Currently 0 (1 standard drink = 0.6 oz pur e alcohol) PHQ-2 Answer Date Recorded Patient Health Questionnaire-2 Score 0 06/30/2024 Comments No Sex and Gender Information Value Date Recorded Sex Assigned at Female 10/10/2024 3:28 PM SOCIAL PSYCHOLOGIST Legal Sex Female 8:27 PM CDT Gender Identity Female 11/06/2024 2:42 PM SOCIAL PSYCHOLOGIST Sexual Orientation Not on file documented as of this encounter Plan of Treatment Upcoming Encounters Date Type Department Care Team (Late Contact Info) Description 04/27/2025 2:40 PM CDT Office Visit [address] [address] Aicha Cuello MD [address] [place] [address] documented as of this encounter Visit Diagnoses Not on filedocumented in this encounter Additional Health Concerns Assessment Noted Time PHQ-9 Depression Total Score: 1 05/14/20 24 9:45 AM CDT documented as of this encounter Care Teams Fuel Technician Relationship Specialty Start Date End Date Aicha Cuello MD [address] [place] [address] PCP - General FAMILY PRACTICE 08/21/18 documented as of this encounter
--- OUTSIDE RECORDS SUMMARY | 2025-03-03 16:23 | XMS_ITS | Encounter Summary ---
Author Organization [employer] [facility] Address [address] [place] [address] Care Team Providers Care Local Combination Truck Driver Name Role Phone Aicha Cuello MD Primary Care Provider Encounter Details Date Type Department Care Team (Late st Contact Info) Description 06/29/1998 Outpatient Historical HIS 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
--- OUTSIDE RECORDS SUMMARY | 2025-03-03 16:23 | XMS_ITS | Encounter Summary ---
Author Organization [facility] [facility] Address [address] [place] [address] Care Team Providers Care Retail Advertising Sales Manager Name Role Phone Aicha Cuello MD Primary Care Provider Encounter Details Date Type Department Care Team (Late st Contact Info) Description 05/13/1999 Outpatient Historical HIS 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
--- OUTSIDE RECORDS SUMMARY | 2025-03-03 16:23 | XMS_ITS | Encounter Summary ---
Author Organization [facility] Address [address] [place] [address] Care Team Providers Care Doughmaker Name Role Phone Sari Cali MD Primary Care Provider Maryam Hilario MD Unavailable [phone] Reason for Visit * Diagnostic Imaging (Routine) - Closed Specialty Diagnoses / Procedures Referred By Renee pablo Referred To Contact Procedures Breast Imaging Screening Outside Reference Referral, Self Referral ID Status Reason Start Date Expiration Date Visits Re quested Visits Authorized [id number] Closed 01/12/2022 02/11/2023 1 1 Encounter Details Date Type Department Care Team (Late st Contact Info) Description 10/11/2018 Hospital Encounter [facility] the [facility] [place] [address] Social History Tobacco Use Types Packs/Day Years [...] on file Legal Sex Female 10:50 PM PIPE LINER Gender Identity Female 10/15/2018 11:21 AM PIPE LINER Sexual Orientation Not on file Occupation Industry [...] SCREENING OUTSIDE REFERENCE Routine 10/11/2018 12:00 AM PIPE LINER documented in this encounter Results * Breast Imaging Screening Outside Reference (10/11/2018 12:00 AM PIPE LINER) Impressions RAD_MAMMO_[facility] - 01/12/2022 10:01 AM CDT These images are for Reference purposes only and have not been reviewed by [facility] Radiology. There will be no report generated by a [facility] Radiologist. Narrative RAD_MAMMO_[facility] - 01/12/2022 10:01 [...] documented as of this encounter Care Teams Doughmaker Relationship Specialty Start Date End Date Sari Cali MD [address] [facility] [address] [place] [address] PCP - General 01/15/17 10/14/18 Maryam Muller MD [address] [facility] [facility] [address] [place] [address] Internal Medicine 02/14/17 10/14/18 documented as of this encounter
--- OUTSIDE RECORDS SUMMARY | 2025-03-03 16:23 | XMS_ITS | Encounter Summary ---
Author Organization [facility] Address [address] [place] [address] Care Team Providers Care Administrative Assistant Data Entry Name Role Phone Aicha Cuello MD Primary Care Provider [phone] Encounter Details Date Type Department Care Team (Late st Contact Info) Description 08/02/2021 [employer] Message Enc [address] [address] Aicha Cuello MD [address] [place] [address] Medication Questions Social History Tobacco Use Types Packs/Day Years Used Date Smoking Tobacco: Never Smokeless Tobacco: Never Alcohol Use Standard Drinks/Week Comments Not Currently 0 (1 standard drink = 0.6 oz pur e alcohol) PHQ-2 Answer Date Recorded PHQ-2 Score - If the patient scores above 3, please move on to questions 3-9 2 01/29/2020 Comments No Sex and Gender Information Value Date Recorded Sex Assigned at Female 10/10/2024 3:28 PM DECKHAND CLAM DREDGE Legal Sex Female 8:27 PM CDT Gender Identity Female 11/06/2024 2:42 PM DECKHAND CLAM DREDGE Sexual Orientation Not on file documented as of this encounter Plan of Treatment Upcoming Encounters Date Type Department Care Team (Late Contact Info) Description 04/27/2025 2:40 PM CDT Office Visit [address] [address] Aicha Cuello MD [address] [place] [address] documented as of this encounter Visit Diagnoses Not on filedocumented in this encounter Additional Health Concerns Assessment Noted Time PHQ-9 Depression Total Score: 10 01/28/ 020 11:26 AM CDT documented as of this encounter Care Teams Administrative Assistant Data Entry Relationship Specialty Start Date End Date Aicha Cuello MD [address] [place] [address] PCP - General FAMILY PRACTICE 08/21/18 documented as of this encounter
--- OUTSIDE RECORDS SUMMARY | 2025-03-03 16:23 | XMS_ITS | Encounter Summary ---
Author Organization [employer] Address [address] [place] [address] Care Team Providers Care Senior Sales Assistant Name Role Phone Aicha Cuello MD Primary Care Provider Encounter Details Date Type Department Care Team (Late st Contact Info) Description 07/28/1999 Outpatient Historical HIS 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
--- OUTSIDE RECORDS SUMMARY | 2025-03-03 16:23 | XMS_ITS | Encounter Summary ---
Author Organization [employer] Address 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
--- OUTSIDE RECORDS SUMMARY | 2025-03-03 16:23 | XMS_ITS | Encounter Summary ---
Author Organization [employer] Address 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
--- OUTSIDE RECORDS SUMMARY | 2025-03-03 16:24 | XMS_ITS | Encounter Summary ---
Author Organization [facility] Address [address] [place] [address] Care Team Providers Care Recreation Assistant Name Role Phone Aicha Cuello MD Primary Care Provider [phone] Encounter Details Date Type Department Care Team (Late st Contact Info) Description 10/18/2024 MyChart Message Enc [address] [address] Aicha Cuello MD [address] [place] [address] New medication Social History Tobacco Use Types Packs/Day Years Used Date Smoking Tobacco: Never Smokeless Tobacco: Never Alcohol Use Standard Drinks/Week Comments Not Currently 0 (1 standard drink = 0.6 oz pur e alcohol) PHQ-2 Answer Date Recorded Patient Health Questionnaire-2 Score 4 10/10/2024 Comments No Sex and Gender Information Value Date Recorded Sex Assigned at Female 10/10/2024 3:28 PM VICE PRESIDENT QUALITY Legal Sex Female 8:27 PM CDT Gender Identity Female 11/06/2024 2:42 PM VICE PRESIDENT QUALITY Sexual Orientation Not on file documented as of this encounter Plan of Treatment Upcoming Encounters Date Type Department Care Team (Late Contact Info) Description 04/27/2025 2:40 PM CDT Office Visit [address] [address] Aicha Cuello MD [address] [place] [address] documented as of this encounter Visit Diagnoses Not on filedocumented in this encounter Additional Health Concerns Assessment Noted Time PHQ-9 Depression Total Score: 18 025 3:49 PM VICE PRESIDENT QUALITY documented as of this encounter Care Teams Recreation Assistant Relationship Specialty Start Date End Date Aicha Cuello MD [address] [place] [address] PCP - General FAMILY PRACTICE 08/21/18 documented as of this encounter
--- OUTSIDE RECORDS SUMMARY | 2025-03-03 16:24 | XMS_ITS | Patient Health Record ---
Author Organization [facility] Address [address] [place], [place] [address] Care Team Providers Care Commercial Credit Head Name Role Phone DIA ORTEGA Unavailable [phone] Aicha Cuello Unavailable Unavailable Allergies No Known [...] Insured Coverage Start Date Coverage End Date [facility] ([facility] ATTN CLAIMS [address] [place] [address] [id number] ELISABETH BRYAN Self - patient is the insured Medical (General) History Medical History History ICD Code kidney stones Sleep apnea Diabetic
--- OUTSIDE RECORDS SUMMARY | 2025-03-03 16:24 | XMS_ITS | Encounter Summary ---
Author Organization [facility] Address [address] [place] [address] Care Team Providers Care Folder Inspector Name Role Phone Aicha Cuello MD Primary Care Provider [phone] Encounter Details Date Type Department Care Team (Late st Contact Info) Description 01/22/2025 Results Follow-Up [facility] Family Medicine [facility] [address] [place] [address] [place] [address] [place] [id number] A1C (BACK OFFICE) Social History Tobacco Use Types Packs/Day Years Used Date Smoking Tobacco: Never Smokeless Tobacco: Never Alcohol Use Standard Drinks/Week Comments Not Currently 0 (1 standard drink = 0.6 oz pur e alcohol) PHQ-2 Answer Date Recorded Patient Health Questionnaire-2 Score 0 01/22/2025 Comments No Sex and Gender Information Value Date Recorded Sex Assigned at Female 10/10/2024 3:28 PM NEWS CLERK Legal Sex Female 8:27 PM CDT Gender Identity Female 11/06/2024 2:42 PM NEWS CLERK Sexual Orientation Not on file documented as of this encounter Functional Status * Over the past 2 weeks, how often have you been bothered by any of the following problems? Question Answer Date of Assessment Author Status Little interest or pleasure in doing things Not at all 01/22/2025 8:09 AM CDT Tara Shaw MA Active Feeling down, depressed, or hopeless Not at all 01/22/2025 8:09 AM CDT Tara Shaw MA Activ e Patient Health Questionnaire-2 Score 0 01/22/2025 8:09 AM CDT Tara Shaw MA Active * Question Answer Date of Assessment Author Status Trouble falling or staying asleep, or sleeping too much Nearly every day 01/22/2025 8:09 AM CDT Tara Shaw MA Active Feeling tired or having little energy Several days 01/22/2025 8:09 AM CDT Tara Shaw MA Active Poor appetite or overeating Not at all 01/22/2025 8:09 AM MARIYAT Tara Shaw MA Active Feeling bad about yourself - or that you are a failure or have let yourself or your family down Not at all 01/22/2025 8:09 AM Tara Grace MA Active Trouble concentrating on things, such as reading the newspaper or watching television Not at all 01/22/2025 8:09 AM Tara Grace MA Active Moving or speaking so slowly that other people could have noticed? Or the opposite - being so fidgety or restless that you have been moving around a lot more than usual. Not at all 01/22/2025 8:09 AM Tara Grace MA Active Thoughts that you would be better off or hurting yourself in some way Not at all 01/22/2025 8:09 AM CDT Tara Shaw MA Active Patient Health Questionnaire-9 Score 4 01/22/2025 8:09 AM CDT Tara Shaw MA Active * Over the last 2 weeks, how often have you been bothered by any of the following problems? Question Answer Date of Assessment Author Status Feeling nervous, anxious, or on edge 1 01/22/2025 8:10 AM Tara Grace MA Activ e Not being able to stop or control worrying 1 01/22/2025 8:10 AM Tara Grace MA Acti ve Worrying too much about different things 2 01/22/2025 8:10 AM MARIYAT Tara Shaw MA Acti ve Trouble relaxing 1 01/22/2025 8:10 AM CDT Tara Shaw MA Active Being so restless that it is hard to sit still 0 01/22/2025 8:10 AM CDT Tara Shaw MA Act mary lou Becoming easily annoyed or irritable 0 01/22/2025 8:10 AM CDT Tara Shaw MA Activ e Feeling afraid as if something awful might happen 2 01/22/2025 8:10 AM CDT Braulio Shaw MA Active OG-7 Total Score 7 01/22/2025 8:10 AM CDT Tara Shaw MA Active documented as of this encounter Progress Notes * Aicha Cuello MD - 01/22/2025 8:21 AM CDT Discussed results with patient and plan going forward in clinic. documented in this encounter Plan of Treatment Upcoming Encounters Date Type Department Care Team (Late st Contact Info) Description 04/27/2025 2:40 PM CDT Office Visit [facility] Family Medicine [facility] [address] [place] [address] Aicha Cuello MD [address] [place] [address] documented as of this encounter Visit Diagnoses Not on filedocumented in this encounter Additional Health Concerns Assessment Noted Time PHQ-9 Depression Total Score: 4 01/23/20 25 8:09 AM CDT documented as of this encounter Care Teams Folder Inspector Relationship Specialty Start Date End Date Aicha Cuello MD [address] [place] [address] PCP - General FAMILY PRACTICE 08/21/18 documented as of this encounter
--- OUTSIDE RECORDS SUMMARY | 2025-03-03 16:24 | XMS_ITS ---
Author Organization [facility] Address [address] [place], [place] [address] Care Team Providers Care Sales Branch Manager Name Role Phone DIA ORTEGA Unavailable [phone] Aicha Cuello Unavailable Unavailable REASON FOR VISIT *Nail surgery follow-up Encounters Encounter Location Date Provider Diagnosis [facility] [address] [facility] [address] [place], [place] [id number] 11/12/2023 DIA ORTEGA Plan Of Treatment No Information Progress Notes * SINCERE BRYANOB:1970 (54 yo F)Acc No.[id number]:11/12/2023 Patient: Thaddeus DELA CRUZ ELISABETH Provider: Alfonso ORTEGA :1970 A ge:53 Y S ex:Female Date:11/12/2023 Address:[address] [place], [place] [id number] Subjective: * Chief Complaints: * 1 . *Nail surgery follow-up. * Medical History: Objective: * Vitals: Assessment: Plan: * Treatment: * Billing Information: * Visit Code: * Procedure Codes: * Electronic signature of LUCIANO ORTEGA DPM on 03/03/2025 at 04:24 PM CDT Sign off status: Pending * Provider: Alfonso ORTEGA Date: 0 11/12/2023 Generated for Magi weathers/Yoel/eTransmitting on: 0 03/03/2025 04:24 PM CDT
--- OUTSIDE RECORDS SUMMARY | 2025-03-03 16:24 | XMS_ITS | Patient Health Record ---
Author Organization [facility] [place] ([address]) Address [address] [place] [address] Care Team Providers Care Settlement Worker Name Role Phone Aicha Cuello Primary Care Provider UnavailZackery Lakhani Unavailable [phone] Rashid Palafox Unavailable [phone] Allergies No Known Allergies Reason For Referral [...] Vaccine Route Administration Date Status Comme nts Fluzone, quadrivalent, prese rvative free Unknown 08/04/2021 Administered COVID-19 (Moderna) Unknown 08/04/2021 Administered Social History Tobacco Use: Social History Observation Description Date Details (start date - stop date) Never Smoker NA - NA Smoking Smart Form: Question Answer Notes Are you a: never smoker Tobacco Control (Standard) Question Answer Notes Tobacco use: Nonsmoker Problems Problem Type SNOMED Code ICD Code Onset Dates Problem Status W/U Status Risk Notes Problem Type 2 diabetes mellitus without complications (E11.9) Active confirmed Problem Chronic allergic conjunctivitis (42467959) Other chronic allergic conjunctivitis (H10.45) Active confirmed Problem Allergic rhinitis caused by pollen (disorder) (42237306) Allergic rhinitis due to pollen (J30.1) Active confirmed Problem Allergic rhinitis (95197196) Other allergic rhinitis (J30.89) Active confirmed Problem Allergic rhinitis caused by pollen (disorder) (98567519) Allergic rhinitis due to pollen (J30.1) Active confirmed Problem Allergic rhinitis caused by animal hair and dander (648982930133254) Allergic rhinitis due to animal (cat) (dog) hair and dander (J30.81) Active confirmed Problem Allergic rhinitis (35006692) Other allergic rhinitis (J30.89) Active confirmed Problem Chronic allergic conjunctivitis (76802832) Other chronic allergic conjunctivitis (H10.45) Active confirmed Problem Eruption of skin (252774330) Rash and other nonspecific skin eruption (R21) Active confirmed Problem Elevated blood pressure reading without diagnosis of hypertension (960548745) Elevated blood-pressure reading, without diagnosis of hypertension (R03.0) Active confirmed Problem Pure hypercholesterolemia (706757091) Pure hypercholesterol emia, unspecified (E78.00) Active confirmed Vital Signs Oximetry 98 % 10/15/2024 Blood pressure diastolic 79 mm Hg 10/15/2024 Height 64 in 10/15/2024 Blood pressure systolic 119 mm Hg 10/15/2024 Weight 194 lbs 10/15/2024 BMI 33.3 kg/m2 10/15/2024 Encounters Encounter Location Date Provider Diagnosis [address] [place] [address] 03/26/2024 Zackery Ho Allergic rhinitis du e to pollen J30.1 ; Allergic rhinitis due to animal (cat) (dog) hair and dander J30.81 ; Other allergic rhinitis J30.89 ; Other chronic allergic conjunctivitis H10.45 ; Rash and other nonspecific skin eruption R21 and Elevated blood-pressure reading, without diagnosis of hypertension R03.0 [facility] [place] [address] 04/23/2024 Rashid Palafox Allergic rhinitis du e to pollen J30.1 ; Other allergic rhinitis J30.89 ; Allergic rhinitis due to animal (cat) (dog) hair and dander J30.81 and Other chronic allergic conjunctivitis H10.[address] [place] [address] 05/21/2024 Rashid Palafox Allergic rhinitis du e to pollen J30.1 ; Other allergic rhinitis J30.89 ; Allergic rhinitis due to animal (cat) (dog) hair and dander J30.81 and Other chronic allergic conjunctivitis H10.45 [facility] [place] [address] 08/18/2024 Rashid Palafox Allergic rhinitis du e to pollen J30.1 ; Other allergic rhinitis J30.89 ; Allergic rhinitis due to animal (cat) (dog) hair and dander J30.81 and Other chronic allergic conjunctivitis H10.45 [facility] [place] [address] [place] [address] 10/01/2024 Rashid Palafox Allergic rhinitis du e to pollen J30.1 ; Other allergic rhinitis J30.89 ; Allergic rhinitis due to animal (cat) (dog) hair and dander J30.81 and Other chronic allergic conjunctivitis H10.45 [facility] [place] [address] [place] [address] 10/15/2024 Zackery [place] Allergic rhinitis du e to pollen J30.1 ; Allergic rhinitis due to animal (cat) (dog) hair and dander J30.81 ; Other allergic rhinitis J30.89 ; Other chronic allergic conjunctivitis H10.45 ; Rash and other nonspecific skin eruption R21 and Elevated blood-pressure reading, without diagnosis of hypertension R03.0 [facility] [place] [address] [place] [address] 10/22/2024 Rashid Palafox Allergic rhinitis du e to pollen J30.1 ; Other allergic rhinitis J30.89 ; Allergic rhinitis due to animal (cat) (dog) hair and dander J30.81 and Other chronic allergic conjunctivitis H10.45 [facility] [place] [address] [place] [address] 10/29/2024 Rashid Palafox Allergic rhinitis du e to pollen J30.1 ; Other allergic rhinitis J30.89 ; Allergic rhinitis due to animal (cat) (dog) hair and dander J30.81 and Other chronic allergic conjunctivitis H10.45 [facility] [place] [address] [place] [address] 11/26/2024 Rashid Palafox Allergic rhinitis du e to pollen J30.1 ; Other allergic rhinitis J30.89 ; Allergic rhinitis due to animal (cat) (dog) hair and dander J30.81 and Other chronic allergic conjunctivitis H10.45 [facility] [place] [address] [place] [address] 12/30/2024 Rashid Palafox Allergic rhinitis du e to pollen J30.1 ; Other allergic rhinitis J30.89 ; Allergic rhinitis due to animal (cat) (dog) hair and dander J30.81 and Other chronic allergic conjunctivitis H10.45 [facility] [address] [place] [address] 01/27/2025 Rashid Palafox Allergic rhinitis du e to pollen J30.1 ; Other allergic rhinitis J30.89 ; Allergic rhinitis due to animal (cat) (dog) hair and dander J30.81 and Other chronic allergic conjunctivitis H10.45 [facility] [address] [address] 02/24/2025 Rashid Palafox Allergic rhinitis du e to pollen J30.1 ; Other allergic rhinitis J30.89 ; Allergic rhinitis due to animal (cat) (dog) hair and dander J30.81 and Other chronic allergic conjunctivitis H10.45 Assessments Encounter Date Diagnosis (ICD Code) Assessment Notes Treatment Notes Treatment Clinical Notes Section Notes 03/26/2024 Allergic rhinitis due to pollen (ICD-10 [...] Of Treatment Next Appt Details Provider Name:Rashid Palafox , 03/24/2025 03:40:00 PM, [address], [place], [address], Provider Name:Anita london, 03/25/2025 03:30:00 PM, [address] [place], [address], Insurance Providers Payer Name Payer Address Payer Phone Subscriber Number Group Number Insured Name Patient Relationship to Insured Coverage Start Date Coverage End Date [facility] [address] [place] [address] [id number] Davis Self - patient is [...]
--- OUTSIDE RECORDS SUMMARY | 2025-03-03 16:25 | XMS_ITS | Clinical Summary ---
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 Active atorvastatin (LIPITOR) 40 mg tablet Take 40 mg by mouth daily with supper. Active ergocalciferol, vitamin D2, (VITAMIN D ORAL) Take 1 Capsule by mouth daily. Active semaglutide (Rybelsus) 3 mg Tablet Take 3 mg by mouth daily with breakfast. Active HYDROcodone-priyanka taminophen (HYCET) 7.5-325 mg/15 mL SolutionIndicat ions:Obesity (BMI 35.0-39.9 without comorbidity) Take 15 mL by mouth every 6 hours as needed for Pain. Max Daily Amount: 60 mL 280 mL 05/11/2020 2:50 PM CDT 05/10/2020 Active famotidine (PEPCID) 20 mg tablet Take 1 Tablet (20 mg) by mouth 2 times daily. 60 Tablet 2 05/11/2020 2:50 PM CDT 05/10/2020 Active ondansetron (Zofran) 4 mg Tablet Take 1 Tablet (4 mg) by mouth every 8 hours as needed for Nausea or Nausea/Emesi s. 50 Tablet 05/11/2020 2:50 PM CDT 05/10/2020 Active Active Problems Problem Noted Date Diagnosed Date Morbid obesity with body mass index of 40.0-49.9 05/10/2020 Uncontrolled type 2 diabetes mellitus with hyper glycemia 05/10/2020 Dyslipidemia 05/10/2020 LISA on CPAP 05/10/2020 S/P laparoscopic sleeve gastrectomy 05/10/2020 Postoperative pain 05/10/2020 Encounters Date Type Department Care Team Description 02/10/2025 External Device Data ST[facility] ABSTRACTION Provider, Abstract 02/05/2025 External Device Data [facility] ABSTRACTION Provider, Abstract 02/04/2025 External Device Data [facility] ABSTRACTION Provider, Abstract 02/03/2025 External Device Data [facility] ABSTRACTION Provider, Abstract 12/16/2024 External Device Data [facility] ABSTRACTION Provider, Abstract 12/03/2024 External Device Data STL ABSTRACTION Provider, Abstract from Last 3 Months Social History Tobacco Use Types Packs/Day Years Used Date Smoking Tobacco: Never Smokeless Tobacco: Never Alcohol Use Standard Drinks/Week Comments Never 0 (1 standard drink = 0.6 oz pur e alcohol) Comments No Sex and Gender Information Value Date Recorded Sex Assigned at Not on file 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 Gender Identity Not on file Sexual Orientation Not on file Last Filed Vital Signs Vital Sign Reading Time Taken Comments Blood Pressure 124/73 05/11/2020 11:55 AM CDT Pulse 64 05/11/2020 11:55 AM CDT Temperature 37 C (98.6 F) 05/11/2020 11:55 AM CDT Respiratory Rate 16 05/11/2020 11:55 AM CDT Oxygen Saturation 94% 05/11/2020 11:55 AM CDT Inhaled Oxygen Concentration - - Weight 103.9 kg (229 lb) 05/10/2020 10:53 AM CDT Height 162.6 cm (5' 4) 05/10/2020 10:53 AM CDT Body Mass Index 39.31 05/10/2020 10:53 AM CDT Plan of Treatment Health Maintenance Due Date Last Done Comments DIABETES ANNUAL FOOT EXAM 1990 DIABETES MICROALBUMIN ANNUAL SCREEN 1990 LDL CHOLESTEROL ANNUAL 1990 HEPATITIS B VACCINES (1 of 3 - 19+ 3-dose series) 1991 10/04/2010, 04/04/2010, 12/29/2009 DIABETES ANNUAL RETINAL EXAM 10/04/2011 10/04/2010 FIT-DNA Q 3 years 2017 FIT/FOBT Q 1 year 2017 Flex Sig/CT Colonography Q 5 years 2017 DTAP/TDAP/TD VACCINES (2 - T d or Tdap) 12/30/2019 12/29/2009 ZOSTER VACCINE (1 of 2) 2022 BREAST CANCER SCREENING 04/17/2024 04/17/20 23, 04/17/2023, 01/09/2022, Additional history exists INFLUENZA VACCINE (#1) 2024 0, 04/28/2020, 07/28/2019, Additional history exists COVID-19 Vaccine (2023-2 5 season) 2024 06/29/2022, 08/04/2021, 01/25/2021, Additional history exists DIABETES HBA1C Q 6 MONTHS 10/18/20242023, 01/23/2024, 04/02/2020, Additional history exists COLORECTAL SCREENING 11/27/2028 11/27/2018 Colorectal Cancer Screening 11/27/2028 Medical Devices Implanted Type Area Felling Machine Operator Device Identifier Shelf Expiration Date Model / Serial / Lot Seamguard Endogia 60 Blk [id number] - [id number] Implanted:Qty : 2 on 05/10/2020 by Kacey Russo MD at [facility] N/A: Stomach [employer] 10/29/2022 [id number] / / [id number] Seamguard Endogia 60 Prpl [id number] - [id number] Implanted:Qty : 3 on 05/10/2020 by Kacey Russo MD at [facility] N/A: Abdomen [employer] 11/06/2022 [id number] / / [id number] Rigging Up Worker Endoclip Iii 5mm W/Cliplogic [id number] - [id number] Implanted:Qty : 1 on 05/10/2020 by Kacey Russo MD at [facility] N/A: Abdomen [employer] - COVIDIEN [id number] / / Insurance BCBS FEDERAL RX [facility] [employer] RX [employer] PL[employer] (INTERNAL) [facility] Internal Plans [employer] Advance Directives For more information, please contact: [phone] * Full Code (Latest Code Status on File) Date Activated Date Inactivated Comments 05/10/2020 5:09 PM 05/11/2020 9:25 PM * Full Code Date Activated Date Inactivated Comments 05/10/2020 2:22 PM 05/10/2020 5:09 PM * Full Code Date Activated Date Inactivated Comments 10/20/2019 9:21 AM 10/20/2019 6:27 PM Care Teams Ammunition Components Inspector Relationship Specialty Start Date End Date Aicha Cuello MD [address] [place] [address] PCP - General Family Practice 09/12/19
--- OUTSIDE RECORDS SUMMARY | 2025-03-03 16:25 | XMS_ITS | Clinical Summary ---
Author Organization [facility] Address [address] [place] [address] Care Team Providers Care Manager Of Security Name Role Phone Unavailable Primary Care Provider Unavailabl e Social History Tobacco Use Types Packs/Day Years Used Date Smoking Tobacco: Never Assessed Comments Unknown Sex and Gender Information Value Date Recorded Sex Assigned at Not on file Legal Sex Unknown 11/17/2019 9:20 PM PST Gender Identity Not on file Sexual Orientation Not on file Plan of Treatment Not on file
--- OUTSIDE RECORDS SUMMARY | 2025-03-03 16:25 | XMS_ITS ---
Author Name [facility] [facility] [place] Address [address] [place] [address] Care Team Providers Care Clinical Writer Name Role Phone ANN-MARIE HERNANDEZ Primary Care [...] USPS BASIC SELF Sep 17, 2024 33A [id number] [phone] LAWRENCE BRYAN PATIENT ANTHEM [place] FEP PREFERRED PROVIDER ORGANIZAT ION (PPO) USPS BASIC SELF Sep 17, 2024 33A [id number] [phone] LAWRENCE BRYAN PATIENT ANTHEM [place] [place] FEP PREFERRED PROVIDER ORGANIZAT ION (PPO) USPS BASIC SELF Sep 17, 2024 33A [id number] [phone] LAWRENCE BRYAN PATIENT [employer] FEP PREFERRED PROVIDER ORGANIZAT ION (PPO) USPS BASIC SELF Sep 17, 2024 33A [id number] [phone] LAWRENCE BRYAN PATIENT [employer] FEP ([id number]) PRESCRIPT ION FEPRX Nov 26, 2021 [id number] [phone] LAWRENCE BRYAN JAY PATIENT [employer] PREFERRED PROVIDER ORGANIZAT ION (PPO) BI-ST ATE DEVEL OPMEN T Sep 17, 2023 [id number] [phone] WHIT RISTOPHER SPOUSE Selected Encounter This section includes the information on record at [place] for the Encounter. Date/Time Encounter Type Encounter Description Reason Pro vider Source Feb 27, 2025 08:52 AM Outpatient Encounter ADMIN PAT ACTIVTIES (MASNONCT) IHE Encounter Template Text not used by [place] Advance Directives: All historical and current Section [...] Mar 21, 1996 ADVANCE DIRECTIVE HARJIT BURGOS [facility] Encounter Notes: All associated encounter notes This section contains the clinical notes associated to the Encounter. Date/Time Encounter Note(s) Provider Source Feb 27, 2025 08:52 AM ADMINISTRATIVE NOT E: LOCAL TITLE: ADMINISTRATIVE STL STANDARD TITLE: ADMINISTRATIVE NOTE DATE OF NOTE: FEB 27, 2025@08:52 ENTRY DATE: FEB 27, 2025@08:52:10 AUTHOR: MIGUEL BLANK EXP COSIGNER: URGENCY: STATUS: COMPLETED PATIENT ENTERED MOBILE ALERT STATING... 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
--- OUTSIDE RECORDS SUMMARY | 2025-03-03 16:25 | XMS_ITS | Continuity of Care Document ---
Author Organization [facility] Address [address] [place] [address] Phone Care Team Providers Care Management Manager Name Role Phone Miriam Thibodeaux PTA Unavailable Unavailable Procedures Procedure Date Therapeutic Activities Neuromuscular Re-Ed Therapeutic Exercise Manual Therapy PT Evaluation Moderate Complexity Therapeutic Activities Neuromuscular Re-Ed Therapeutic Exercise Manual Therapy PT Evaluation Low Complexity Therapeutic Activities Neuromuscular Re-Ed Therapeutic Exercise Manual Therapy Hot or Cold Pack Advance Directives Directive Yes / No Effective Date File Name No Information Encounters Encounter Description Practice Location Reason(s) For Visit Diagnoses Date Provider Providers Copied on Encounter [facility] [employer] [facility], [place], [place], [id number], tel:[phone] [place] No Information 4 Carlos Eduardo Miriam. . [facility], [place], [place], [id number], tel:[phone] [place] No Information 4 Scheldt Miriam. . Referring Provider: Aicha Cuello, [address] [place], [address]. tel:[phone] [facility], [place], [place], [id number], tel:[phone] [place] No Information 4 Kavon Mckeon. . Referring Provider: Aicha Cuello, [address] [place], [address]. tel:[phone] [facility], [place], [place], [id number], tel:[phone] [place] No Information Aug- 2 Short Shannan. . Referring Provider: Aicha Cuello, [address] [place], [address]. tel:[phone] Family History Family Member Type Diagnosis Age At Onset No Information Payers Payer name Insurance type Covered green party ID Authordarion db(s) [facility] [id number] Social History Type Description Quantity Date Captured Comments Sex Female Smoking Status No Information Chief Complaint And Reason For Visit No Information Reason For Referral Reason For Referral No Information Plan Of Treatment Date Type Action Status Referral Ordered: Referrals: Specialist. Evaluate and Treat (related to Adjustment disorder with depressed mood) ordered Referral Ordered: Depression: Depression management program timeframe: 1 Day. (related to Depression) ordered Referral Ordered: Clinical Psychology (related to Depression) ordered History Of Present Illness Encounter Date Complaint History Of Prese nt Illness No Information Functional Status Date Functional Assessmen t No Information Instructions Date Instruction Additional Infor mation Giving encouragement to exercise Related to Overweight Giving encouragement to exercise Related to Overweight Assessments Type Assessment Date No Information Patient Care Teams Name Effective Dates (start - stop) Status Members No Information
--- OUTSIDE RECORDS SUMMARY | 2025-03-03 16:25 | XMS_ITS | Encounter Summary ---
Author Organization [facility] Address [address] [place] [address] Care Team Providers Care Bulb Tester Name Role Phone Unavailable Primary Care Provider Unavailabl e Prior Encounters Date Type Department Care Team Description 10/06/2019 Converted 13x Documents [id number] [place] [address] <No scans attached> Plan of Treatment Not on file Visit Diagnoses Not on file
--- OUTSIDE RECORDS SUMMARY | 2025-03-03 16:25 | XMS_ITS | Continuity of Care Document ---
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 It does not include entries that were removed or entered in error. Problem Status Onset Date Problem Type Date of Resolution Comments Source visit for: screening exam hypertension Inactive 1 Condition DoD Anxiety ([facility] [id number]) Active Condition [facility] Contraception Active Condition [facility] Diabetes Mellitus Type 2 ([facility] [id number]) Active Condition [facility] Hyperlipidemia ([facility] [id number]) Active Condition [facility] Hypothyroidism ([facility] [id number]) Active Condition [facility] NKA Active Condition [facility] Obstructive Sleep Apnea of Adult ([facility] [id number]) Active Condition [facility] Recurrent depression Active Condition [facility] THYROID GOITER Active Condition [facility] Ulnar neuropathy of right arm Active Condition [facility] Urinary Tract Infections Active Condition [facility] REFRACTIVE ERROR Active Condition [facility] Vaccines Prophylactic Need Against Influenza Inactive Condition [facility] WOUND INFECTION Inactive Condition DoD SINUSITIS Active Condition DoD BACTERIAL VAGINOSIS Inactive Condition DoD Need For Vaccination Hepatitis B Inactive Condition DoD MENORRHAGIA Active Condition DoD visit for: screening exam for malignant neoplasm cervix Active Condition [facility] ROUTINE PELVIC EXAM Inactive Condition DoD HYPERLIPIDEMIA Active Condition DoD DYSMENORRHEA Active Condition DoD visit for: administrative purpose Active Condition DoD ABNORMAL WEIGHT GAIN Active Condition DoD ankle joint pain Active Condition DoD Diagnosis: ICD-10-CM G56.00 Carpal tunnel syndrome, unspecified upper limb Active Diagnosis [facility] Diagnosis: ICD-10-CM G56.01 Carpal tunnel syndrome, right upper limb Active Diagnosis [facility] Diagnosis: ICD-10-CM E11.9 Type 2 diabetes mellitus without complications Active Diagnosis [facility] Diagnosis: ICD-10-CM Z01.818 Encounter for other preprocedural examination Active Diagnosis [facility] Diagnosis: ICD-10-CM S44.01XA 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, right arm, init Active Diagnosis [facility] Diagnosis: ICD-10-CM Z11.52 Encounter for screening for COVID-19 Active Diagnosis [facility] Diagnosis: ICD-10-CM Z04.89 Encounter for examination and observation for oth reasons Active Diagnosis [facility] Diagnosis: ICD-10-CM F34.1 Dysthymic disorder Active Diagnosis [facility] Diagnosis: ICD-10-CM F43.20 Adjustment disorder, unspecified Active Diagnosis [facility] Medications Combined list of outpatient [...] - DO NOT CRUSH OR CHEW. ORAL SUSPEND ED 03/03/2026 [id number] 5 MARY,NI I [address] [facility] BUPROPION HCL 300MG 24HR TAB,SA TAKE ONE TABLET BY MOUTH ONCE A DAY FOR DEPRESSI ON SWALLO W WHOLE - DO NOT CRUSH OR CHEW. ORAL DISCONT INUED 01/10/2025 [id number] 5 MARY,NI I [address] [facility] BUPROPION HCL 300MG 24HR TAB,SA TAKE ONE TABLET BY MOUTH ONCE A DAY ORAL ACTIVE MARY,NI DHI [address] [facility] buPROPion HCl XL 300 MG ORAL TB24 TAKE ONE TABLET BY MOUTH ONCE A DAY FOR DEPRESSI ON SWALLO W WHOLE - DO NOT CRUSH OR CHEW. 01/10/2025 [id number] 4 MARY ANN-MARIE 2023 90 [facility] CHOLECALCIF COLTON (LOW DOSE VIT D) - (OTC) TAB TAKE 125 BY MOUTH ONCE A DAY ORAL ACTIVE MARYLUIZA [facility] [address] [facility] CRESTOR (BRAND) 20 MG ORAL TAB TAKE ONE-HALF TABLET BY MOUTH EVERY EVENING FOR HIGH CHOLESTE ROL 01/10/2025 [id number] 4 MARY, [facility] 2023 45 [facility] DOCUSATE (U/D) 100 MG ORAL CAP TAKE ONE CAPSULE BY MOUTH TWICE DAILY NEEDED FOR SOFTENIN G STOOL HOLD FOR LOOSE STOOL/DI ARRHEA. 01/10/2025 [id number] 4 MARY, [facility] 2023 200 [facility] DOCUSATE NA 100MG CAP TAKE ONE CAPSULE BY MOUTH TWICE DAILY NEEDED FOR SOFTENIN G STOOL HOLD FOR LOOSE STOOL/DI ARRHEA. ORAL 01/10/2025 [id number] 4 MARYNI [facility] [address] [facility] EPINEPHRINE (EQV-ADRENA CLICK) 0.3MG/0.3ML INJECTOR INJECT 1 PEN (0.3MG/0 .3ML) INTRAMUS CULARLY ONE-TIME FOR ALLERGIC REACTION INTRAM USCULA R 01/10/2025 [id number] 5 LUIZA HERNANDEZ [facility] [address] [facility] Epinephrine 1mg/mL, Injection, 0.3 mL Auto-Inject or INJECT 1 PEN (0.3MG/0 .3ML) INTRAMUS CULARLY ONE-TIME FOR ALLERGIC REACTION 01/10/2025 [id number] 4 MARY, [facility] 2023 2 [facility] ezetimibe (U/D) 10 MG ORAL TAB TAKE ONE TABLET BY MOUTH ONCE A DAY FOR HIGH CHOLESTE ROL 01/10/2025 [id number] 4 MARY, [facility] 2023 90 [facility] EZETIMIBE 10MG TAB TAKE ONE TABLET BY MOUTH ONCE A DAY FOR HIGH CHOLESTE ROL ORAL 01/10/2025 [id number] 5 MARY,NI I 2023 90 [facility] EZETIMIBE 10MG TAB TAKE ONE TABLET BY MOUTH ONCE A DAY ORAL ACTIVE MARY,NI [facility]HI 2023 [facility] FEXOFENADIN E HCL 180MG TAB TAKE ONE TABLET BY MOUTH EACH MORNING NEEDED FOR ALLERGIE S ORAL 04/09/2024 [id number] 4 MARY,NI I 2023 90 [facility] HYDROCODONE 7.5MG/ACETA MINOPHEN 325MG TAB TAKE 1 TABLET BY MOUTH EVERY 6 HOURS NEEDED FOR POST-OPE RATIVE PAIN CAUTION: DO NOT EXCEED 4000MG PER DAY ACETAMIN OPHEN (APAP) FROM ALL MEDS. ORAL 01/23/2025 [id number] 5 FARIHA RISTOPHER D 2024 20 [facility] Ibuprofen (Motrin) Tablet 800 mg Oral TAKE ONE TABLET BY MOUTH TWICE DAILY NEEDED FOR PAIN TAKE WITH FOOD 02/24/2024 [id number] 4 ANN-MARIE HERNANDEZ 2023 90 [facility] IBUPROFEN 800MG TAB TAKE ONE TABLET BY MOUTH TWICE DAILY NEEDED FOR PAIN TAKE WITH FOOD ORAL 02/24/2024 [id number] 4 MARY,NI I 2023 90 [facility] NAPROXEN 500MG TAB TAKE ONE TABLET BY MOUTH TWICE A DAY FOR PAIN TAKE WITH FOOD. ORAL 11/27/2024 [id number] 5 MARY,NI I 2024 180 [facility] ROSUVASTATI N CA 20MG TAB TAKE ONE-HALF TABLET BY MOUTH EVERY EVENING FOR HIGH CHOLESTE ROL ORAL 01/10/2025 [id number] 4 MARY,NI DHI 2023 45 [facility] ROSUVASTATI N CA 20MG TAB TAKE ONE-HALF TABLET BY MOUTH EVERY EVENING ORAL ACTIVE LUIZA HERNANDEZ [facility] 2023 [facility] SEMAGLUTIDE 0.25MG/0.37 5ML INJ,SOLN,PE N,3ML INJECT 0.5MG UNDER THE SKIN EVERY WEEK SUBCUT ANEOUS ACTIVE MARYNI [facility] 2023 [facility] UK Fexofenadin e Hydrochlori de (Telfast) Tablet 180 mg Oral TAKE ONE TABLET BY MOUTH EACH MORNING NEEDED FOR ALLERGIE S 04/09/2024 [id number] 4 MARY, ANN-MARIE 2023 90 [facility] Allergies, Adverse Reactions, Alerts Combined list of allergies from Department of Defense and Veterans Affairs facilities. It does not include entries that were removed or entered in error. Substance Category Reaction Severity Reaction type Status Date Reported Comments Source No Known Allergies Drug allergy (disorder) active 04/30/2018 [employer] Damien EVANS ([facility] Immunizations Combined list of available immunizations from the Department of Defense and Veterans Affairs facilities. Immunization Series Date Given Administered By Site Reaction Lot Number CVX Code Drug Online Advertising Director Status Comments Source varicella virus vaccine 2 2016 [id number] Merck (MSD) complet ed varicella virus vaccine DoD Influenza, seasonal, injectable, preservative free 1 2016 [id number] Seqirus (SEQ) comple t ed Influenza , seasonal, injectabl e, preservat mary lou free DoD Influenza, seasonal, injectable, preservative free 1 2015 [id number] [employer] (SEQ) comple t ed Influenza , seasonal, injectabl e, preservat mary lou free DoD measles, mumps and rubella virus vaccine 2 2014 [id number] 03 Merck (MSD) complet ed measles, mumps and rubella virus vaccine DoD varicella virus vaccine 1 2014 [id number] 21 Merck (MSD) complet ed varicella virus vaccine DoD Influenza, seasonal, injectable 1 2014 [id number] 141 [employer] [place]. (NOV) complet ed Influenza , seasonal, injectabl e DoD Influenza, injectable, quadrivalent, preservative free 1 2013 [id number] [employer] (SKB) complet ed Influenza , injectabl e, quadrival ent, preservat mary lou free DoD Influenza, seasonal, injectable, preservative free 1 2012 [id number] 140 [employer] [place]. (NOV) complet ed Influenza , seasonal, injectabl e, preservat mary lou free DoD Influenza, seasonal, injectable, preservative free 1 2011 [id number] 140 [facility] [employer] (CSL) complet ed Influenza , seasonal, injectabl e, preservat mary lou free DoD influenza virus vaccine, unspecified formulation 1 2010 [id number] 88 [employer] [place]. (NOV) complet ed influenza virus vaccine, unspecifi ed formulati on DoD hepatitis B vaccine, adult dosage 3 2010 SABRANICA LIM [id number] 43 [facility] (B) complet ed hepatitis B vaccine, adult dosage DoD influenza virus vaccine, live, attenuated, for intranasal use 1 2009 [id number] 111 [employer]. ([facility]) complet ed influenza virus vaccine, live, attenuate d, for intranasa l use DoD hepatitis B vaccine, adult dosage 2 2009 JARET THOMAS [id number] 43 [facility] (B) complet ed hepatitis B vaccine, adult dosage DoD hepatitis B vaccine, adult dosage 1 2009 [id number] 43 [facility] ([facility]) complet ed hepatitis B vaccine, adult dosage DoD tetanus toxoid, reduced diphtheria toxoid, and acellular pertu is vaccine, adsorbed 1 2009 [id number] 115 [facility] ([facility]) complet ed tetanus toxoid, reduced diphtheri a toxoid, and acellular pertussis vaccine, adsorbed DoD Novel influenza-H1N 1-09, injectable 1 2009 [id number] 127 [employer] [place]. (NOV) complet ed Novel influenza -[id number], injectabl e DoD influenza virus vaccine, split virus (incl. purified surface antigen)-reti red CODE 1 2008 [id number] 15 [facility] [employer] (CSL) complet ed influenza virus vaccine, split virus (incl. purified surface antigen)- retired CODE DoD influenza virus vaccine, split virus (incl. purified surface antigen)-reti red CODE 1 2007 [id number] 15 [facility]) complet ed influenza virus vaccine, split virus (incl. purified surface antigen)- retired CODE DoD influenza virus vaccine, split virus (incl. purified surface antigen)-reti red CODE 1 2006 [id number] 15 [facility]) complet ed influenza virus vaccine, split virus (incl. purified surface antigen)- retired CODE DoD influenza virus vaccine, split virus (incl. purified surface antigen)-reti red CODE 1 2006 [id number] 15 [facility] ([facility]) complet ed influenza virus vaccine, split virus (incl. purified surface antigen)- retired CODE DoD hepatitis A vaccine, adult dosage 2 2003 [id number] 52 [facility] ([facility]) complet ed hepatitis A vaccine, [...] CODE 1 2003 UNK 15 Sanofi Pasteur ([facility]) complet ed influenza virus vaccine, split virus [...] ed trivalent polioviru s vaccine, live, oral [facility] measles and rubella virus vaccine 1 1990 [...] adenoviru s vaccine, type 4, live, oral [facility] adenovirus vaccine, type 7, live, oral 1 [...] Specimen Type: BLOOD Comment: Test Performed by: [id number] Meter #: [id number] Ordering Provider: BG HERNANDEZ I Report Released Date/Time: Dec 24, 2024 11:01 AM Reporting Lab: [facility] [address] [facility] [address] Performing Lab: [facility] [address] [facility] [phone] [facility] COVID-19 DIAGNOST IC (FLU/RSV )(STL) INFLUENZA [...] Dec 23, 2024 02:34 PM Reporting Lab: [place] [address] [address] [facility] [address] Performing Lab: [place] [address] [phone] [place] [address] COVID-19 DIAGNOST IC (FLU/RSV )(STL) INFLUENZA B [...] Dec 23, 2024 02:34 PM Reporting Lab: [place] [address] [address] [facility] [address] Performing Lab: [place] [address] [facility] [address] [facility] COVID-19 DIAGNOST IC (FLU/RSV )(STL) SARS-COV-2 (COVID-19) [...] Dec 23, 2024 02:34 PM Reporting Lab: [facility] [address] [address] Performing Lab: [facility] [address] [facility] [address] [facility] COVID-19 DIAGNOST IC (FLU/RSV )([facility]) RESPIRATOR Y SYNCYTIAL VIRUS RNA [PRESENCE] IN [...] Dec 23, 2024 02:34 PM Reporting Lab: [facility] [address] [address] Performing Lab: [facility] [address] [address] [facility] CBC LEUKOCYTES [#/VOLUME] IN BLOOD BY AUTOMATED COUNT 5.5 10*3/uL 3.6 - 11.2 12/16 Specimen Type: BLOOD No comment entered. Ordering Provider: PRATIBHA FRIED Report Released Date/Time: Nov 19, 2024 08:50 AM Reporting Lab: [facility] [address] [address] Performing Lab: [place] [address] [address] [address] [facility] CBC ERYTHROCYT ES [#/VOLUME] IN BLOOD BY AUTOMATED COUNT 4.07 10*6/uL 3.60 - 5.00 12/16 Specimen Type: BLOOD No comment entered. Ordering Provider: PRATIBHA FRIED Report Released Date/Time: Nov 19, 2024 08:50 AM Reporting Lab: [address] [address] Performing Lab: [address] [phone] [place] [address] CBC HEMOGLOBIN [MASS/VOLU ME] IN BLOOD 11.4 g/dL 11.0 - 14.9 12/16 Specimen Type: BLOOD No comment entered. Ordering Provider: PRATIBHA FRIED Report Released Date/Time: Nov 19, 2024 08:50 AM Reporting Lab: [address] [address] Performing Lab: [address] [phone] [place] [address] CBC HEMATOCRIT [VOLUME FRACTION] OF BLOOD 34.6 32.6 - 43.4 12/16 Specimen Type: BLOOD No comment entered. Ordering Provider: PRATIBHA FRIED Report Released Date/Time: Nov 19, 2024 08:50 AM Reporting Lab: [address] [address] Performing Lab: [address] [phone] [place] [address] CBC MCV [ENTITIC VOLUME] BY AUTOMATED COUNT 85.0 fL 80.0 - 100.0 12/16 Specimen Type: BLOOD No comment entered. Ordering Provider: PRATIBHA FRIED Report Released Date/Time: Nov 19, 2024 08:50 AM Reporting Lab: [address] [address] Performing Lab: [facility] [address] [address] [facility] CBC MCH [ENTITIC MASS] BY AUTOMATED COUNT 28.0 pg 27.0 - 34.0 12/16 Specimen Type: BLOOD No comment entered. Ordering Provider: PRATIBHA FRIED Report Released Date/Time: Nov 19, 2024 08:50 AM Reporting Lab: [address] [address] Performing Lab: [address] [address] [facility] CBC MCHC [MASS/VOLU ME] BY AUTOMATED COUNT 32.9 g/dL 33.0 - 36.0 12/16 L Specimen Type: BLOOD No comment entered. Ordering Provider: PRATIBHA FRIED Report Released Date/Time: Nov 19, 2024 08:50 AM Reporting Lab: [place] [address] [address] [address] Performing Lab: [address] [address] [facility] CBC PLATELETS [#/VOLUME] IN BLOOD BY AUTOMATED COUNT 274 10*3/uL 150 - 400 12/16 Specimen Type: BLOOD No comment entered. Ordering Provider: PRATIBHA FRIED Report Released Date/Time: Nov 19, 2024 08:50 AM Reporting Lab: [place] [address] [facility] [address] Performing Lab: [address] [address] [facility] CBC PLATELET MEAN VOLUME [ENTITIC VOLUME] IN BLOOD BY AUTOMATED COUNT 9.2 fL 7.5 - 11.2 12/16 Specimen Type: BLOOD No comment entered. Ordering Provider: PRATIBHA FRIED Report Released Date/Time: Nov 19, 2024 08:50 AM Reporting Lab: [address] [place] [address] Performing Lab: [facility] [address] [facility] [address] [facility] CBC ERYTHROCYT E DISTRIBUTI ON WIDTH [RATIO] BY AUTOMATED COUNT 12.9 11.8 - 15.1 12/16 Specimen Type: BLOOD No comment entered. Ordering Provider: PRATIBHA FRIED Report Released Date/Time: Nov 19, 2024 08:50 AM Reporting Lab: [facility] [address] [address] Performing Lab: [facility] [address] [address] [facility] CBC LYMPHOCYTE S/100 LEUKOCYTES IN BLOOD BY AUTOMATED COUNT 44 12/16 Specimen Type: BLOOD No comment entered. Ordering Provider: PRATIBHA FRIED Report Released Date/Time: Nov 19, 2024 08:50 AM Reporting Lab: [facility] [address] [facility] [address] Performing Lab: [facility] [address] [address] [facility] CBC MONOCYTES/ 100 LEUKOCYTES IN BLOOD BY AUTOMATED COUNT 7 12/16 Specimen Type: BLOOD No comment entered. Ordering Provider: PRATIBHA FRIED Report Released Date/Time: Nov 19, 2024 08:50 AM Reporting Lab: [facility] [address] [address] Performing Lab: [facility] [address] [address] [facility] CBC NEUTROPHIL S/100 LEUKOCYTES IN BLOOD BY AUTOMATED COUNT 46 12/16 Specimen Type: BLOOD No comment entered. Ordering Provider: PRATIBHA FRIED Report Released Date/Time: Nov 19, 2024 08:50 AM Reporting Lab: [facility] [address] [address] Performing Lab: [facility] [address] [facility] [address] [facility] CBC EOSINOPHIL S/100 LEUKOCYTES IN BLOOD BY AUTOMATED COUNT 2 12/16 Specimen Type: BLOOD No comment entered. Ordering Provider: PRATIBHA FRIED Report Released Date/Time: Nov 19, 2024 08:50 AM Reporting Lab: [facility] [address] [facility] [address] Performing Lab: [facility] [address] [place] [address] [facility] CBC BASOPHILS/ 100 LEUKOCYTES IN BLOOD BY AUTOMATED COUNT 1 12/16 Specimen Type: BLOOD No comment entered. Ordering Provider: PRATIBHA FRIED Report Released Date/Time: Nov 19, 2024 08:50 AM Reporting Lab: [address] [address] Performing Lab: [address] [address] [facility] CBC LYMPHOCYTE S [#/VOLUME] IN BLOOD BY AUTOMATED COUNT 2.40 10*3/uL 0.77 - 4.50 12/16 Specimen Type: BLOOD No comment entered. Ordering Provider: PRATIBHA FRIED Report Released Date/Time: Nov 19, 2024 08:50 AM Reporting Lab: [address] [address] Performing Lab: [facility] [address] [place] [address] [facility] CBC MONOCYTES [#/VOLUME] IN BLOOD BY AUTOMATED COUNT 0.37 10*3/uL 0.19 - 0.80 12/16 Specimen Type: BLOOD No comment entered. Ordering Provider: PRATIBHA FRIED Report Released Date/Time: Nov 19, 2024 08:50 AM Reporting Lab: [address] [address] Performing Lab: [address] [address] [facility] CBC NEUTROPHIL S [#/VOLUME] IN BLOOD BY AUTOMATED COUNT 2.54 10*3/uL 2.10 - 8.00 12/16 Specimen Type: BLOOD No comment entered. Ordering Provider: PRATIBHA FRIED Report Released Date/Time: Nov 19, 2024 08:50 AM Reporting Lab: [place] [address] [place] [phone] Performing Lab: [place] [address] [place] [phone] [facility] CBC EOSINOPHIL S [#/VOLUME] IN BLOOD BY AUTOMATED COUNT 0.12 10*3/uL 0.00 - 0.60 12/16 Specimen Type: BLOOD No comment entered. Ordering Provider: PRATIBHA FRIED Report Released Date/Time: Nov 19, 2024 08:50 AM Reporting Lab: [place] [address] [place] [phone] Performing Lab: [place] [address] [address] [facility] [phone] CBC BASOPHILS [#/VOLUME] IN BLOOD BY AUTOMATED COUNT 0.06 10*3/uL 0.00 - 0.20 12/16 Specimen Type: BLOOD No comment entered. Ordering Provider: PRATIBHA FRIED Report Released Date/Time: Nov 19, 2024 08:50 AM Reporting Lab: [place] [address] [place] [phone] Performing Lab: [place] [address] [place] [phone] COMPREHE NSIVE METABOLI C PANEL CREATININE [MASS/VOLU ME] IN SERUM OR PLASMA 0.86 mg/dL 0.6 - 1.1 12/16 Specimen Type: PLASMA Comment: No hemolysis noted. VERIFIED BY REPEAT Ordering Provider: PRATIBHA FRIED Report Released Date/Time: Nov 19, 2024 08:50 AM Reporting Lab: [place] [address] [place] [phone] Performing Lab: [facility] [address] [facility] [address] [facility] COMPREHE NSIVE METABOLI C PANEL UREA NITROGEN [MASS/VOLU ME] IN SERUM OR PLASMA 10.3 mg/dL 9.0 - 25.0 12/16 Specimen Type: PLASMA Comment: No hemolysis noted. VERIFIED BY REPEAT Ordering Provider: PRATIBHA FRIED Report Released Date/Time: Nov 19, 2024 08:50 AM Reporting Lab: [facility] [address] [facility] [address] Performing Lab: [facility] [address] [facility] [address] [facility] COMPREHE NSIVE METABOLI C PANEL GLUCOSE [MASS/VOLU ME] IN SERUM OR PLASMA 81 mg/dL 72 - 99 12/16 Specimen Type: PLASMA Comment: No hemolysis noted. VERIFIED BY REPEAT Ordering Provider: PRATIBHA FRIED Report Released Date/Time: Nov 19, 2024 08:50 AM Reporting Lab: [facility] [address] [facility] [address] Performing Lab: [facility] [address] [facility] [address] [facility] COMPREHE NSIVE METABOLI C PANEL SODIUM [MOLES/VOL UME] IN SERUM OR PLASMA 139 meq/L 136 - 145 12/16 Specimen Type: PLASMA Comment: No hemolysis noted. VERIFIED BY REPEAT Ordering Provider: PRATIBHA FRIED Report Released Date/Time: Nov 19, 2024 08:50 AM Reporting Lab: [facility] [address] [facility] [address] Performing Lab: [facility] [address] [facility] [address] [facility] COMPREHE NSIVE METABOLI C PANEL POTASSIUM [MOLES/VOL UME] IN SERUM OR PLASMA 3.8 meq/L 3.5 - 5 12/16 Specimen Type: PLASMA Comment: No hemolysis noted. VERIFIED BY REPEAT Ordering Provider: PRATIBHA FRIED Report Released Date/Time: Nov 19, 2024 08:50 AM Reporting Lab: [facility] [address] [facility] [address] Performing Lab: [facility] [address] [address] [facility] COMPREHE NSIVE METABOLI C PANEL CHLORIDE [MOLES/VOL UME] IN SERUM OR PLASMA 105 meq/L 98 - 107 12/16 Specimen Type: PLASMA Comment: No hemolysis noted. VERIFIED BY REPEAT Ordering Provider: PRATIBHA FRIED Report Released Date/Time: Nov 19, 2024 08:50 AM Reporting Lab: [facility] [address] [address] Performing Lab: [facility] [address] [facility] [address] [facility] COMPREHE NSIVE METABOLI C PANEL CARBON DIOXIDE, TOTAL [MOLES/VOL UME] IN SERUM OR PLASMA 26 meq/L 22 - 31 12/16 Specimen Type: PLASMA Comment: No hemolysis noted. VERIFIED BY REPEAT Ordering Provider: PRATIBHA FRIED Report Released Date/Time: Nov 19, 2024 08:50 AM Reporting Lab: [facility] [address] [facility] [address] Performing Lab: [facility] [address] [facility] [address] [facility] COMPREHE NSIVE METABOLI C PANEL CALCIUM [MASS/VOLU ME] IN SERUM OR PLASMA 9.5 mg/dL 8.4 - 10.4 12/16 Specimen Type: PLASMA Comment: No hemolysis noted. VERIFIED BY REPEAT Ordering Provider: PRATIBHA FRIED Report Released Date/Time: Nov 19, 2024 08:50 AM Reporting Lab: [facility] [address] [facility] [address] Performing Lab: [facility] [address] [facility] [address] [facility] COMPREHE NSIVE METABOLI C PANEL PROTEIN [MASS/VOLU ME] IN SERUM OR PLASMA 7.1 g/dL 6 - 8.6 12/16 Specimen Type: PLASMA Comment: No hemolysis noted. VERIFIED BY REPEAT Ordering Provider: PRATIBHA FRIED Report Released Date/Time: Nov 19, 2024 08:50 AM Reporting Lab: [place] [address] [facility] [address] Performing Lab: [facility] [address] [address] [facility] COMPREHE NSIVE METABOLI C PANEL ALBUMIN [MASS/VOLU ME] IN SERUM OR PLASMA 4.1 g/dL 3.4 - 5 12/16 Specimen Type: PLASMA Comment: No hemolysis noted. VERIFIED BY REPEAT Ordering Provider: PRATIBHA FRIED Report Released Date/Time: Nov 19, 2024 08:50 AM Reporting Lab: [place] [address] [place] [phone] Performing Lab: [place] [address] [facility] [phone] COMPREHE NSIVE METABOLI C PANEL BILIRUBIN. TOTAL [MASS/VOLU ME] IN SERUM OR PLASMA 0.6 mg/dL 0.2 - 1.2 12/16 Specimen Type: PLASMA Comment: No hemolysis noted. VERIFIED BY REPEAT Ordering Provider: PRATIBHA FRIED Report Released Date/Time: Nov 19, 2024 08:50 AM Reporting Lab: [facility] [address] [facility] [address] Performing Lab: [place] [address] [facility] [phone] COMPREHE NSIVE METABOLI C PANEL ALKALINE PHOSPHATAS E [ENZYMATIC ACTIVITY/V OLUME] IN SERUM OR PLASMA 77 U/L 40 - 150 12/16 Specimen Type: PLASMA Comment: No hemolysis noted. VERIFIED BY REPEAT Ordering Provider: PRATIBHA FRIED Report Released Date/Time: Nov 19, 2024 08:50 AM Reporting Lab: [facility] [address] [facility] [address] Performing Lab: [facility] [address] [facility] [address] [facility] COMPREHE NSIVE METABOLI C PANEL ASPARTATE AMINOTRANS FERASE [ENZYMATIC ACTIVITY/V OLUME] IN SERUM OR PLASMA 28 U/L 5 - 34 12/16 Specimen Type: PLASMA Comment: No hemolysis noted. VERIFIED BY REPEAT Ordering Provider: PRATIBHA FRIED Report Released Date/Time: Nov 19, 2024 08:50 AM Reporting Lab: [facility] [address] [facility] [address] Performing Lab: [facility] [address] [facility] [address] [facility] COMPREHE NSIVE METABOLI C PANEL ALANINE AMINOTRANS FERASE [ENZYMATIC ACTIVITY/V OLUME] IN SERUM OR PLASMA 26 U/L 8 - 40 12/16 Specimen Type: PLASMA Comment: No hemolysis noted. VERIFIED BY REPEAT Ordering Provider: PRATIBHA FRIED Report Released Date/Time: Nov 19, 2024 08:50 AM Reporting Lab: [facility] [address] [facility] [address] Performing Lab: [facility] [address] [facility] [address] [facility] COMPREHE NSIVE METABOLI C PANEL GLOMERULAR FILTRATION RATE/1.73 SQ M.PREDICTE D [VOLUME RATE/AREA] IN SERUM, PLASMA OR BLOOD BY CREATININE -BASED FORMULA (CKD-EPI 2020) 81.2 60 12/16 Specimen Type: PLASMA Comment: No hemolysis noted. VERIFIED BY REPEAT Ordering Provider: PRATIBHA FRIED Report Released Date/Time: Nov 19, 2024 08:50 AM Reporting Lab: [facility] [address] [facility] [address] Performing Lab: [facility] [address] [facility] [address] [facility] MICRAL/C REAT PROFILE (STL) ALBUMIN [MASS/VOLU ME] IN URINE 15.9 mg/L 08/27 Specimen Type: URINE No comment entered. Ordering Provider: BG HERNANDEZ I Report Released Date/Time: Aug 13, 2024 02:46 PM Reporting Lab: [address] [address] Performing Lab: [address] [address] [facility] MICRAL/C REAT PROFILE (STL) ALBUMIN/CR EATININE [MASS RATIO] IN URINE 7 mg/g 0 - 29 08/27 Specimen Type: URINE No comment entered. Ordering Provider: BG HERNANDEZ I Report Released Date/Time: Aug 13, 2024 02:46 PM Reporting Lab: [address] [address] Performing Lab: [address] [address] [facility] MICRAL/C REAT PROFILE (STL) CREATININE [MASS/VOLU ME] IN URINE 221.1 mg/dL 47 - 110 08/27 H Specimen Type: URINE No comment entered. Ordering Provider: BG HERNANDEZ I Report Released Date/Time: Aug 13, 2024 02:46 PM Reporting Lab: [address] [address] Performing Lab: [address] [address] [facility] HGA1C HEMOGLOBIN A1C/HEMOGL OBIN.TOTAL IN BLOOD 6.3 4.0 - 6.0 08/27 H Specimen Type: BLOOD No comment entered. Ordering Provider: BG HERNANDEZ I Report Released Date/Time: Aug 13, 2024 02:46 PM Reporting Lab: [address] [address] Performing Lab: [address] [address] [facility] COMPREHE NSIVE METABOLI C PANEL CREATININE [MASS/VOLU ME] IN SERUM OR PLASMA 1.11 mg/dL 0.6 - 1.1 08/27 H Specimen Type: PLASMA Comment: No hemolysis noted. Ordering Provider: BG HERNANDEZ I Report Released Date/Time: Aug 13, 2024 02:46 PM Reporting Lab: [facility] [address] [facility] [address] Performing Lab: [facility] [address] [facility] [address] [facility] COMPREHE NSIVE METABOLI C PANEL UREA NITROGEN [MASS/VOLU ME] IN SERUM OR PLASMA 13.4 mg/dL 9.0 - 25.0 08/27 Specimen Type: PLASMA Comment: No hemolysis noted. Ordering Provider: BG HERNANDEZ I Report Released Date/Time: Aug 13, 2024 02:46 PM Reporting Lab: [facility] [address] [facility] [address] Performing Lab: [facility] [address] [facility] [address] [facility] COMPREHE NSIVE METABOLI C PANEL GLUCOSE [MASS/VOLU ME] IN SERUM OR PLASMA 89 mg/dL 72 - 99 08/27 Specimen Type: PLASMA Comment: No hemolysis noted. Ordering Provider: BG HERNANDEZ I Report Released Date/Time: Aug 13, 2024 02:46 PM Reporting Lab: [facility] [address] [facility] [address] Performing Lab: [facility] [address] [facility] [address] [facility] COMPREHE NSIVE METABOLI C PANEL SODIUM [MOLES/VOL UME] IN SERUM OR PLASMA 141 meq/L 136 - 145 08/27 Specimen Type: PLASMA Comment: No hemolysis noted. Ordering Provider: BG HERNANDEZ I Report Released Date/Time: Aug 13, 2024 02:46 PM Reporting Lab: [facility] [address] [facility] [address] Performing Lab: [facility] [address] [facility] [address] [facility] COMPREHE NSIVE METABOLI C PANEL POTASSIUM [MOLES/VOL UME] IN SERUM OR PLASMA 4.1 meq/L 3.5 - 5 08/27 Specimen Type: PLASMA Comment: No hemolysis noted. Ordering Provider: BG HERNANDEZ I Report Released Date/Time: Aug 13, 2024 02:46 PM Reporting Lab: [facility] [address] [facility] [address] Performing Lab: [address] [phone] [place] [address] COMPREHE NSIVE METABOLI C PANEL CHLORIDE [MOLES/VOL UME] IN SERUM OR PLASMA 104 meq/L 98 - 107 08/27 Specimen Type: PLASMA Comment: No hemolysis noted. Ordering Provider: BG HERNANDEZ I Report Released Date/Time: Aug 13, 2024 02:46 PM Reporting Lab: [facility] [address] [facility] [address] Performing Lab: [facility] [address] [place] [phone] [facility] COMPREHE NSIVE METABOLI C PANEL CARBON DIOXIDE, TOTAL [MOLES/VOL UME] IN SERUM OR PLASMA 27 meq/L 22 - 31 08/27 Specimen Type: PLASMA Comment: No hemolysis noted. Ordering Provider: BG HERNANDEZ I Report Released Date/Time: Aug 13, 2024 02:46 PM Reporting Lab: [facility] [address] [facility] [address] Performing Lab: [facility] [address] [place] [address] [facility] COMPREHE NSIVE METABOLI C PANEL CALCIUM [MASS/VOLU ME] IN SERUM OR PLASMA 9.7 mg/dL 8.4 - 10.4 08/27 Specimen Type: PLASMA Comment: No hemolysis noted. Ordering Provider: BG HERNANDEZ I Report Released Date/Time: Aug 13, 2024 02:46 PM Reporting Lab: [facility] [address] [facility] [address] Performing Lab: [facility] [address] [facility] [address] [facility] COMPREHE NSIVE METABOLI C PANEL PROTEIN [MASS/VOLU ME] IN SERUM OR PLASMA 7.7 g/dL 6 - 8.6 08/27 Specimen Type: PLASMA Comment: No hemolysis noted. Ordering Provider: BG HERNANDEZ I Report Released Date/Time: Aug 13, 2024 02:46 PM Reporting Lab: [facility] [address] [facility] [address] Performing Lab: [facility] [address] [facility] [address] [facility] COMPREHE NSIVE METABOLI C PANEL ALBUMIN [MASS/VOLU ME] IN SERUM OR PLASMA 4.2 g/dL 3.4 - 5 08/27 Specimen Type: PLASMA Comment: No hemolysis noted. Ordering Provider: BG HERNANDEZ I Report Released Date/Time: Aug 13, 2024 02:46 PM Reporting Lab: [facility] [address] [place] [phone] Performing Lab: [facility] [address] [facility] [address] [facility] COMPREHE NSIVE METABOLI C PANEL BILIRUBIN. TOTAL [MASS/VOLU ME] IN SERUM OR PLASMA 0.7 mg/dL 0.2 - 1.2 08/27 Specimen Type: PLASMA Comment: No hemolysis noted. Ordering Provider: BG HERNANDEZ I Report Released Date/Time: Aug 13, 2024 02:46 PM Reporting Lab: [facility] [address] [place] [phone] Performing Lab: [facility] [address] [facility] [address] [facility] COMPREHE NSIVE METABOLI C PANEL ALKALINE PHOSPHATAS E [ENZYMATIC ACTIVITY/V OLUME] IN SERUM OR PLASMA 82 U/L 40 - 150 08/27 Specimen Type: PLASMA Comment: No hemolysis noted. Ordering Provider: BG HERNANDEZ I Report Released Date/Time: Aug 13, 2024 02:46 PM Reporting Lab: [facility] [address] [facility] [address] Performing Lab: [facility] [address] [facility] [address] [facility] COMPREHE NSIVE METABOLI C PANEL ASPARTATE AMINOTRANS FERASE [ENZYMATIC ACTIVITY/V OLUME] IN SERUM OR PLASMA 49 U/L 5 - 34 08/27 H Specimen Type: PLASMA Comment: No hemolysis noted. Ordering Provider: BG HERNANDEZ I Report Released Date/Time: Aug 13, 2024 02:46 PM Reporting Lab: [facility] [address] [facility] [address] Performing Lab: [facility] [address] [place] [phone] [facility] COMPREHE NSIVE METABOLI C PANEL ALANINE AMINOTRANS FERASE [ENZYMATIC ACTIVITY/V OLUME] IN SERUM OR PLASMA 28 U/L 8 - 40 08/27 Specimen Type: PLASMA Comment: No hemolysis noted. Ordering Provider: BG HERNANDEZ I Report Released Date/Time: Aug 13, 2024 02:46 PM Reporting Lab: [facility] [address] [facility] [address] Performing Lab: [facility] [address] [place] [phone] [facility] COMPREHE NSIVE METABOLI C PANEL GLOMERULAR FILTRATION RATE/1.73 SQ M.PREDICTE D [VOLUME RATE/AREA] IN SERUM, PLASMA OR BLOOD BY CREATININE -BASED FORMULA (CKD-EPI 2020) 59.8 60 08/27 Specimen Type: PLASMA Comment: No hemolysis noted. Ordering Provider: BG HERNANDEZ I Report Released Date/Time: Aug 13, 2024 02:46 PM Reporting Lab: [facility] [address] [facility] [address] Performing Lab: [facility] [address] [facility] [address] [facility] LIPID PANEL (STL) CHOLESTERO L [MASS/VOLU ME] IN SERUM OR PLASMA 146 mg/dL 0 - 200 08/27 Specimen Type: PLASMA Comment: No hemolysis noted. Ordering Provider: BG HERNANDEZ I Report Released Date/Time: Aug 13, 2024 02:46 PM Reporting Lab: [facility] [address] [place] [phone] Performing Lab: [address] [address] [facility] LIPID PANEL (STL) TRIGLYCERI DE [MASS/VOLU ME] IN SERUM OR PLASMA 72 mg/dL 0 - 150 08/27 Specimen Type: PLASMA Comment: No hemolysis noted. Ordering Provider: BG HERNANDEZ I Report Released Date/Time: Aug 13, 2024 02:46 PM Reporting Lab: [address] [address] Performing Lab: [address] [address] [facility] LIPID PANEL (STL) CHOLESTERO L IN LDL [MASS/VOLU ME] IN SERUM OR PLASMA BY CALCULATIO N 75 mg/dL 08/27 Specimen Type: PLASMA Comment: No hemolysis noted. Ordering Provider: BG HERNANDEZ I Report Released Date/Time: Aug 13, 2024 02:46 PM Reporting Lab: [address] [address] Performing Lab: [address] [address] [facility] LIPID PANEL (STL) CHOLESTERO L IN HDL [MASS/VOLU ME] IN SERUM OR PLASMA 57 mg/dL 40 08/27 Specimen Type: PLASMA Comment: No hemolysis noted. Ordering Provider: BG HERNANDEZ I Report Released Date/Time: Aug 13, 2024 02:46 PM Reporting Lab: [address] [address] Performing Lab: [facility] [address] [place] [phone] [facility] B12 COBALAMIN (VITAMIN B12) [MASS/VOLU ME] IN SERUM OR PLASMA 491 pg/mL 213 - 816 01/09 Specimen Type: SERUM No comment entered. Ordering Provider: BG HERNANDEZ I Report Released Date/Time: Dec 31, 2023 10:01 AM Reporting Lab: [address] [address] Performing Lab: [address] [address] [facility] VITAMIN D, 25-HYDRO XY 25-HYDROXY VITAMIN D3 [MASS/VOLU ME] IN SERUM OR PLASMA 65.2 ng/mL 30 - 96 01/09 Specimen Type: SERUM No comment entered. Ordering Provider: BG HERNANDEZ I Report Released Date/Time: Dec 31, 2023 10:01 AM Reporting Lab: [address] [address] Performing Lab: [address] [address] [facility] Vital Signs Combined list of inpatient and outpatient Vital Signs from Department of Defense and Veterans Affairs, ranging from 12 months to all on record, depending upon the facility. Vital Sign Value Date Comments Source SYSTOLIC BLOOD PRESSURE 128 02/03/2025 11:52:52 [facility] DIASTOLIC BLOOD PRESSURE 76 02/03/2025 11:52:52 [facility] PULSE OXIMETRY 99 02/03/2025 11:52:52 [facility] WEIGHT 191 02/03/2025 11:52:52 [facility] BMI 33 kg/m2 02/03/2025 11:52:52 [facility] PAIN 0 02/03/2025 11:52:52 [facility] HEIGHT 64 02/03/2025 11:52:52 [facility] TEMPERATURE 98.1 02/03/2025 11:52:52 [facility] PULSE 81 02/03/2025 11:52:52 [facility] RESPIRATION 20 02/03/2025 11:52:52 [facility] SYSTOLIC BLOOD PRESSURE 130 01/06/2025 08:07:08 [facility] DIASTOLIC BLOOD PRESSURE 77 01/06/2025 08:07:08 [facility] PULSE OXIMETRY 99 01/06/2025 08:07:08 [facility] PAIN 0 01/06/2025 08:07:08 [facility] HEIGHT 64 01/06/2025 08:07:08 [facility] TEMPERATURE 98.2 01/06/2025 08:07:08 [facility] PULSE 87 01/06/2025 08:07:08 [facility] RESPIRATION 18 01/06/2025 08:07:08 [facility] SYSTOLIC BLOOD PRESSURE 134 12/24/2024 10:30:00 [facility] DIASTOLIC BLOOD PRESSURE 82 12/24/2024 10:30:00 [facility] PULSE OXIMETRY 98 12/24/2024 10:30:00 [facility] WEIGHT 191.2 12/24/2024 10:30:00 [facility] BMI 33 kg/m2 12/24/2024 10:30:00 [facility] PAIN 0 12/24/2024 10:30:00 [facility] HEIGHT 64 12/24/2024 10:30:00 [facility] TEMPERATURE 98.6 12/24/2024 10:30:00 [facility] PULSE 81 12/24/2024 10:30:00 [facility] RESPIRATION 12 12/24/2024 10:30:00 [facility] SYSTOLIC BLOOD PRESSURE 138 11/19/2024 08:33:35 [facility] DIASTOLIC BLOOD PRESSURE 76 11/19/2024 08:33:35 [facility] PULSE OXIMET[facility] 99 11/19/2024 08:33:35 [facility] WEIGHT 194.8 11/19/2024 08:33:35 [facility] BMI 34 kg/m2 11/19/2024 08:33:35 [facility] PAIN 0 11/19/2024 08:33:35 [facility] HEIGHT 64 11/19/2024 08:33:35 [facility] TEMPERATURE 98 11/19/2024 08:33:35 [facility] PULSE 86 11/19/2024 08:33:35 . [facility] RESPIRATION 18 11/19/2024 08:33:35 [facility] Encounters Combined list of: 1) Encounters [...] Source [facility]([employer] [facility] [employer] ) OUTPATIENT [id number] profile issue MALIK ORTEGA 12/30 Released with Work/Duty Limitations [facility]rel and Militar y Readine ss) [facility] ) OUTPATIENT [id number] PAP MALIK ORTEGA 01/04 Released with Work/Duty Limitations [facility]) [facility] ) TELE CONSULT [id number] f/u to discuss mri ankle result KENROY VO 01/10 [facility] Readine [facility]) [facility]) OUTPATIENT [id number] PAP;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 NIA MONSIVAIS 01/10 Released w/o Limitations [place] Jennifer [place], [place] ) OUTPATIENT [id number] PAP MALIK ORTEGA 01/11 Released w/o Limitations [place] [facility] [place], [facility](Physic al Therapy [facility]) OUTPATIENT [id number] ankle joint pain JOSETTE FUENTES Saurav 01/28 Released w/o Limitations [place] [facility] [place] [facility]) OUTPATIENT [id number] DYSMENO [facility] 04/04 Released w/o Limitations [place] [facility] [place] [facility] REGAN Thomas(Immuni zation Clinic) OUTPATIENT [id number] [employer] ?? JARET THOMAS L 04/04 Released w/o Limitations [place] [facility] [place]([facility]) TELE CONSULT [id number] surgery on 14 april; dischar ISELA Browne 04/25 [place] [facility], [facility]) OUTPATIENT [id number] [facility] Released w/o Limitations [place] [id number] need profile update MALIK ORTEGA 05/20 Released with Work/Duty Limitations [place] [id number] SINUS INFECTI ON SANTO JULES 05/31 Released w/o Limitations [place], [facility](Phys[facility] al Therapy Clinic) OUTPATIENT [id number] Ankle joint pain JUNE BRAY 06/16 Released w/o Limitations [place] [facility] [place] [place] [facility] [place] [id number] infecte d hair folicle MALIK ORTEGA E 06/29 Released w/o Limitations [place] [facility] [place] [facility] [place] OUTPATIENT [id number] infecte d hair folicle fu/ ORTEGAJOSE R RossCARMELA E 07/04 Released w/o Limitations [place] [facility] [place] [facility] [place] OUTPATIENT [id number] SEASONA L WOJCIECH MCNALLY 07/06 Released w/o Limitations [place] [place] [facility] [place] [id number] hep b+. STEFANIE STEEN 10/04 Released w/o Limitations [place] [facility] [place] [facility] [place] OUT[place]IENT [id number] RONNIE DANIEL 10/04 Released w/o Limitations [facility] [place] [facility] [place] [id number] update profile ORTEGAJOSE RCARMELA E 10/04 Released with Work/Duty Limitations [place] [facility] [place] [facility] [place] [id number] profile MALIK ORTEGA E 01/04 Released with Work/Duty Limitations [facility] [place] [facility] [place] TELE CONSULT [id number] 5 Day B/P KENROY VO 01/04 [facility] [place] [facility] [place] OUTPATIENT [id number] Day1/ Day BP Check MALIK ORTEGA E 01/05 Released w/o Limitations [facility] [place]) [facility] [employer] [place], [place]([facility] S[facility]) OUTPATIENT [id number] Notes Entered by: ESTRELLITA TOVAR 30 Apr 2018 0815 ------- ------- ------- ------- -- (N P-DS) CONGEST ION,LOW ER BACK PAIN SHERRICORNEL 04/30 Released w/o Limitations [facility] [employer] [place] [place]) [facility] [employer] [place] OUTPATIENT [id number] Notes Entered by: MARTÍNEZ OLSON 02 May 2018 0735 ------- ------- ------- ------- -- E 10/17= DS F/u back pain CORNEL POLANCO 05/02 Released w/o Limitations [facility] [employer] [place]) [facility] [employer]) [place]PAT[place] [id number] low back pain/ri ght leg pain per Tram Thao ld HA SYED 05/03 Released w/o Limitations [facility] [employer] [place] [facility] [employer] [place]) OUTPAT[place] [id number] back HA SYED 05/08 Released w/o Limitations [facility] [employer] [place] [facility] [employer] [place]) [place] [id number] BACK GIANNA BYRD 05/15 Released w/o Limitations [facility] [employer] [place] [facility] [employer] [place]) [place] [id number] BACK HA SYED 05/16 Released w/o Limitations [facility] [employer] [place] [facility] [employer] [place]) [place] [id number] BACK EDUARDO LÓPEZ JESSICA 05/22 Released w/o Limitations [facility] [employer] [facility] [employer] [place] S[facility] OUTPATIENT [id number] Notes Entered by: SORAYA ISBELL 23 May 2018 1101 ------- ------- ------- ------- -- (D /S) Labs GATO RODRIGUEZ 05/23 Released w/o Limitations [facility] [employer] [place] S[facility] [place]) [facility] Outpatient Encounter [id number] 12/30 [facility] OFFICE O/P NEW MOD 45 MIN [id number] Diagnos is: ICD-10- CM E11.9 Type 2 diabete s mellitu s without complic ations GEOFFREY HERNANDEZ HI 12/30 [facility] W PT 30 MINUTES [id number] Diagnos is: ICD-10- CM F43.20 Adjustm ent disorde r, unspeci JED Sultana T 12/30 [facility] Outpatient Encounter [id number] 1 01/03 [facility] OFF/OP EST JANUARY X REQ PHY/QHP [id number] [id number] Diagnos is: ICD-10- CM E11.9 Type 2 diabete s mellitu s without complic ations ROMANA PRIEST 01/07 [facility] PRO PHONE CALL 11-20 MIN [id number] [id number] Diagnos is: ICD-10- CM E11.9 Type 2 diabete s mellitu s without complic ations ROMANA PRIEST R 01/13 [facility] W PT 45 MINUTES [id number] [id number] Diagnos is: ICD-10- CM F34.1 Dysthym ic disorde r JED SCHMIDT T 01/20 [facility] W PT 30 MINUTES 37383-4.65 [id number] Diagnos is: ICD-10- CM F34.1 Dysthym ic disorde r JED SCHMIDT T 01/29 [facility] Outpatient Encounter [id number] 02/12 [facility] Outpatient Encounter [id number] [id number] JED SCHMIDT T 02/13 [facility] OFFICE O/P NEW MOD 45 MIN [id number] [id number] Diagnos is: ICD-10- CM E11.9 Type 2 diabete s mellitu s without complic ations DOMINIC MCDONNELL 02/26 [facility] Outpatient Encounter [id number] 04/16 [facility] Outpatient Encounter [id number] [id number] 06/23 [facility] Outpatient Encounter [id number] [id number] GEOFFREY HERNANDEZ HI 08/15 [facility] Outpatient Encounter [id number] GEOFFREY HERNANDEZ HI 08/29 [facility] OFFICE O/P EST MOD 30 MIN [id number] Diagnos is: ICD-10- CM E11.9 Type 2 diabete s mellitu s without complic ations GEOFFREY HERNANDEZ 08/29 [facility] Outpatient Encounter [id number] 10/08 [facility] NRV CNDJ TEST 9-10 STUDIES [id number] [id number] 4 Diagnos is: ICD-10- CM G56.01 Carpal tunnel syndrom e, right upper limb POONAM PARTIDA 10/08 [facility] Outpatient Encounter [id number] [id number] 5 10/08 [facility] Outpatient Encounter [id number] [id number] ROMANA PRIEST R 10/16 [facility] Outpatient Encounter [id number] [id number] 5 10/31 [facility] Outpatient Encounter [id number] [id number] 5 ROMANA PRIEST R 11/04 [facility] OFFICE O/P NEW MOD 45 MIN [id number] [id number] 6 Diagnos is: ICD-10- CM G56.01 Carpal tunnel syndrom e, right upper limb PREVEL,CHR ISTOPHER D 11/19 [facility] Outpatient Encounter [id number] [id number] 11/19 [facility] Outpatient Encounter [id number] Diagnos is: ICD-10- CM Z04.89 Encount er for examina tion and observa tion for oth reasons YOCASTA TODD IEL P 12/03 [facility] PH1 ASSMT&MGMT NQHP 5-10 [id number] [id number] Diagnos is: ICD-10- CM G56.01 Carpal tunnel syndrom e, right upper limb TORRES,VE COMPA 12/12 [facility] Outpatient Encounter [id number] [id number] 1 12/16 [facility] ASSMT&MGMT NQHP 5-10 [id number] [id number] 5 Diagnos is: ICD-10- CM G56.01 Carpal tunnel syndrom e, right upper limb PERDOMO,N[place] NA D 12/23 [facility] ASSMT&MGMT NQHP 5-10 [id number] [id number] Diagnos is: ICD-10- CM G56.01 Carpal tunnel syndrom e, right upper limb TORRES,VE COMPA 12/23 [facility] OFF/OP EST MAY X REQ PHY/QHP 83040-3.65 [id number] 4 Diagnos is: ICD-10- CM Z11.52 Encount er for screeni ng for COVID-1 9 FRANCISCO J TAY R 12/23 [facility] OFFICE O/P EST LOW 20 MIN [id number] [id number] 4 Diagnos is: ICD-10- CM G56.01 Carpal tunnel syndrom e, right upper limb PREVEL,CHR ISTOPHER D 12/24 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, right arm, init FILOMENA PALENCIA L 12/24 [facility] OFFICE O/P EST LOW 20 MIN [id number] [id number] Diagnos is: ICD-10- CM Z01.818 Encount er for other preproc edural examina Saurav Hennessy 12/24 [facility] Outpatient Encounter [id number] [id number] Saurav GRIFFIN 12/24 [facility] Outpatient Encounter [id number] [id number] PREVEL,CHR ISTOPHER D 12/24 [facility] CARPAL TUNNEL SURGERY 56012-5.65 [id number] 6 Diagnos is: ICD-10- CM G56.01 Carpal tunnel syndrom e, right upper limb KLAUDIA DE JESUS E 12/24 [facility] Outpatient Encounter [id number] [id number] KLAUDIA DE JESUS E 12/24 [facility] Outpatient Encounter [id number] [id number] TAHMINA REGAN E 12/24 [facility] Outpatient Encounter [id number] [id number] MICHAEL BARRERA A 12/24 [facility] SYNCH AUDIO-ONLY EST SF 10 [id number] [id number] 6 Diagnos is: ICD-10- CM G56.01 Carpal tunnel syndrom e, right upper limb PREVEL,CHR ISTOPHER D 12/25 [facility] Outpatient Encounter [id number] [id number] 12/26 [facility] OFFICE O/P EST MOD 30 MIN [id number] [id number] Diagnos is: ICD-10- CM E11.9 Type 2 diabete s mellitu s without complic ations CAMI BYRD TTHEW C 12/26 [facility] POSTOP FOLLOW-UP VISIT [id number] [id number] 7 Diagnos is: ICD-10- CM G56.01 Carpal tunnel syndrom e, right upper limb PREVEL,CHR ISTOPHER D 01/06 [facility] Outpatient Encounter [id number] [id number] CAMI BYRD TTHEW C 01/08 [facility] OFFICE O/P EST LOW 20 MIN [id number] [id number] Diagnos is: ICD-10- CM G56.00 Carpal tunnel syndrom e, unspeci fied upper limb ANNABELLEWALubnaSUM ESH 02/03 [facility] Outpatient Encounter [id number] [id number] 02/27 [facility] Procedures Combined list of: 1) Procedures from Department of Veterans Affairs facilities going back up to thelast 18 months, not all VA non-surgical procedures are included; 2) All procedures from the Department of Defense facilities. Procedure Procedure Type Code Date Perfomer Comments Sourc e right carpal tunnel release CARPAL TUNNEL SURGERY 80497 025 [facility] Traction Pelvic Traction Pelvic 12748 018 EDUARDO LÓPEZ Modalities Electrical Stimulation Unattended Modalities Electrical Stimulation Unattended 25347 018 EDUARDO LÓPEZ Modalities Heat Hot Packs Modalities Heat Hot Packs 42527 018 EDUARDO LÓPEZ Physical Therapy Neuromuscular Re-education Physical Therapy Neuromuscular Re-education 40476 018 CONTHA GRECO Physical Medicine Physical Therapy Re-Evaluation Physical Medicine Physical Therapy Re-Evaluation 33571 018 CONTHA GRECO Traction Pelvic Traction Pelvic 43321 018 GIANNA BYRD Modalities Electrical Stimulation Unattended Modalities Electrical Stimulation Unattended 22075 018 GIANNA BYRD Modalities Heat Hot Packs Modalities Heat Hot Packs 84620 018 GIANNA BYRD Exercises A isted Exercises For ROM Exercises Assisted Exercises For ROM 48113 018 CONTHA GRECO Physical Medicine Physical Therapy Re-Evaluation Physical Medicine Physical Therapy Re-Evaluation 95368 018 CONTHA GRECO Exercises A isted Exercises For ROM Exercises Assisted Exercises For ROM 44262 018 HA SYED Osteopathic Manip Treatment (OMT) 1-2 Body Regions Involved Osteopathic Manip Treatment (OMT) 1-2 Body Regions Involved 72018 018 CORNEL POLANCO Hot water bottle, ice cap or collar, heat and/or cold wrap, any type 018 CORNEL POLANCO A e ment & Intervention Blood Pre ure Measured 011 MALIK ORTEGA Determination Of Refractive State Determination Of Refractive State 15217 011 RONNIE RENEE Ophthalmological New Patient Start Comprehensive Care Ophthalmological New Patient Start Comprehensive Care 79693 011 RONNIE RENEE Hepatitis B Vaccine (Active); 20 Years and Above JARET THOMAS Immunization Administration One Vaccine Immunization Administration One Vaccine 30913 011 JARET THOMAS Influenza Virus Vaccine Live Intranasal JOSH ROCKY Martinez [facility] Immunization Admin By Intranasal / Oral Route One Vaccine Immunization Admin By Intranasal / Oral Route One Vaccine 05713 010 ROCKY MORENO [facility] Physical Therapy: ___ Se ion Segments, 15 Minutes Each Physical Therapy: ___ Session Segments, 15 Minutes Each 01881 010 JUNE BRAY [facility] Physical Medicine Physical Therapy Evaluation Physical Medicine Physical Therapy Evaluation 28568 JUNE BRAY [facility] Hepatitis B Vaccine (Active); 20 Years and Above WILLIAM JARET L [facility] Immunization Administration One Vaccine Immunization Administration One Vaccine 68870 NGUYEN THOMASRENE Martinez [facility] Physical Therapy: ___ Se ion Segments, 15 Minutes Each Physical Therapy: ___ Session Segments, 15 Minutes Each 18493 010 JOSETTE FUENTES [facility] Physical Medicine Physical Therapy Evaluation Physical Medicine Physical Therapy Evaluation 77992 JOSETTE FUENTES [facility] Screening papanicolaou smear; obtaining, preparing and conveyance of cervical or vaginal smear to laboratory NIA MONSIVAIS [facility] Social History Combined list of available smoking, tobacco, and other social history from Department of Defense and Veterans Affairs facilities. Social History Type Response Date Comment Eli abel Tobacco smoking status [facility] NEVER USED 12/31/2023 [facility] This section is an empty social history section. [facility] Advance Directives List of completed, amended, or rescinded Advance Directives on record at Department of Veterans Affairs facilities. An actual copy of the Directive is not included. Date Advance Directive Provider Source 03/21/1996 ADVANCE DIRECTIVE HARJIT BURGOS [facility]
[2025-03-03 16:58] LABS: Anion Gap 10 mmol/L (4-12); Blood Urea Nitrogen 15 mg/dL (7-17); Calcium 9.6 mg/dL (8.4-10.2); Carbon Dioxide 27 mmol/L (22-30); Chloride 102 mmol/L (98-107); Estimated Glomerular Filt Rate 51; Glucose 101 mg/dL (65-110); Potassium 3.7 mmol/L (3.4-5.0); Sodium 139 mmol/L (137-145)
== END 2025-03-03 15:27 | disposition home or self-care (01) ==
LOC: ANHLAB 15:27
PROVIDERS: Referring Provider Anesthesiology; Visit Provider Urology
DX: N20.0 Calculus of kidney (principal); E11.9 Type 2 diabetes mellitus without complications; E78.5 Hyperlipidemia, unspecified
CPT/HCPCS: 36415; 80048; 85610; 85730; 87086; 93005

== ENCOUNTER 2025-03-06 00:46 | Day surgery (SDC) | payer BC, SELFPAY ==
[2025-03-03 09:31] VITALS: BMI 31.8
--- NOTE | 2025-03-03 09:31 | PC.NURSE ---
Report to the Outpatient Waiting Room, entrance under the green pavilion located off [facility], at time _0800_ on date _[id number]_. Planned Procedure Time: _1000_.? Time changes happen often and if your time is changed the preop area will call you the afternoon before. - You and your visitor will be asked to self-screen and do not enter if you have any COVID symptoms. Please call surgeon if you need to reschedule. - A mask is optional within the hospital at this time. Patients may have clear liquids (water, carbonated beverages, clear teas, apple juice) until 3 hours prior to surgery with a maximum of 20 ounces. - No food from midnight until time of surgery and no smoking, or chewing tobacco (or any form of nicotine). No chewing gum, candy or mints. Take only the following medications with a SIP of water on the morning of surgery: ___Bupropion DO NOT STOP ANY OF YOUR OTHER PRESCRIPTION MEDICATIONS PRIOR TO SURGERY EXCEPT THE FOLLOWING Hold all vitamins and supplements for 3 days per anesthesiologist. Medications to discontinue per physician Date to take last dose___Stop now.____ Please no make-up, nail botswanan, hairspray, perfume, deodorant, or body powder the day of surgery.? No jewelry (including any body piercings) or valuables the day of surgery, leave them at home.? Please take a shower or bath the night before, or the morning of, surgery with an antibacterial soap.? Wear comfortable, loose fitting clothing.? - Jewelry must be removed prior to entering the operating room.? Rings and piercings that are not removed may be cut off. - The hospital will not accept responsibility for valuables.? - Please leave all valuables, including medications, at home the day of surgery. If you are going home after surgery, a licensed dedicated regional driver must drive you home.? - NO public transportation without another adult if you receive anesthesia. - We recommend that an adult stay with you for 24 hours following discharge. - We also recommend that you do not drive, make important decision, drink alcoholic beverages, or take any drugs that were not prescribed by your health care provider for at least 24 hours after your discharge time. Follow any additional instructions given to you from your surgeon. Telephone instructions given to __Armida___and asked if any additional questions and then verbalized understanding. Patient advised to call surgeon office or pre surgery nurse liaison [phone] if any additional questions.
[2025-03-06] VITALS (8 sets, daily range): BP systolic 130–144; BP diastolic 70–84; PULSE 62–73; RESP 12–20; TEMP 36.7–36.9; O2SAT 100; BMI 31.2
--- NOTE | ~2025-03-06 | XR_ITS ---
Supine and upright views of the abdomen Clinical history: Lithotripsy COMPARISON: 02/25/2025 Findings: Bowel gas pattern is nonspecific. No evidence for obstruction or free air. Stable probable mid right ureteral stone projecting over the right L3 transverse process. Osseous structures are inta ct. Impression: Stable probable mid right ureteral stone, as noted above. Reviewed, dictated and finalized at [facility]. Impression: Stable probable mid right ureteral stone, as noted above.
--- OUTSIDE RECORDS SUMMARY | 2025-03-06 00:49 | XMS_ITS | Referral Summary ---
Author Organization [facility] Address [address] [place] [address] Care Team Providers Care Nursing Attendant Name Role Phone iAcha Cuello MD Primary Care Provider Mariola Suarez Unavailable [phone] Jm Boyle MD Unavailable [phone] Vincent Byrd MD Unavailable [phone] Encounters Date Type Department Care Team Description 12/23/2024 Orders Only [facility] Obstetrics and Gynecology [address] 7th [address] [place] [address] Isaura Olivares MD 12/22/2024 1:00 PM CDT Office Visit [facility] Obstetrics and Gynecology [address] 1st [address] [place] [address] Isaura Olivares MD Low libido (Primary Dx); [...] (11/22/2022): Added automatically from request for surgery [id number] Allergic rhinitis due to animal hair and [...] on file Legal Sex Female 10:50 PM CATEGORY SPECIALIST Gender Identity Female 10/15/2018 11:21 AM CATEGORY SPECIALIST Sexual Orientation Not on file Occupation 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 Job Start 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 Job 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 Not on file Not on file Not on file Last Filed Vital Signs Vital Sign Reading Time Taken Comments Blood Pressure 143/81 12/22/2024 1:20 PM CDT Pulse 97 12/22/2024 1:20 PM CDT Temperature 37 C (98.6 F) 10/28/2024 10:45 AM CATEGORY SPECIALIST Respiratory Rate 18 10/28/2024 10:45 AM CATEGORY SPECIALIST Oxygen Saturation 100% 05/01/2024 12:10 PM CDT [...] HEPATITIS C ANTIBODY Routine 11/25/2021 2:33 PM CATEGORY SPECIALIST Screening for STD (sexually transmitted disease) THINPREP TIS PAP AND HR HPV DNA REFLEX GENOTYPES 16,18 Routine 11/18/2021 4:58 PM CATEGORY SPECIALIST from Last 3 Months or Most Recently [...] BLOOD ORDERABLES Fi nal Result [facility] [place] [address] * (ABNORMAL) POCT hemoglobin A1c (04/17/2024 11:09 AM CDT) Hgb A1C, POC 6.0(H) 4.0 - 5.6 % Est Average Gluc POC 126 mg/dL [facility] Comment: The ADA recommends reporting an estimated Average Glucose (eAG) with all Hemoglobin A1c results using the equation derived from a study of 507 normal and diabetic adults. Minority populations were underrepresented and children were not included. (Diabetes Care 31:2445-5462, 2008). The eAG is not equivalent to a fasting glucose. Blood 04/17/2024 11:0 9 AM CDT 04/17/2024 11:09 AM CDT Isaura Olivares MD POINT OF CARE TEST ROGER MCCLENDON Final Result Performing Organization Address City/[facility]/ZIP Co de Phone Number [facility] [place] [address] * Albumin Creatinine Ratio, Urine (03/28/2023 3:11 [...] ORDERABLES Zora l Result Performing Organization Address City/[facility]/ZIP Co de Phone Number [facility] [address] [place] [address] * Lipid panel (05/12/2022) Blood specimen (specimen) us Toña Sandoval MD LAB BLOOD ORDERABLES Zora l Result Performing Organization Address City/[facility]/ZIP Co de Phone Number [facility] * SCREENING [...] compared to prior imaging studies performed at [facility] on 10/29/2015, and at [facility]. [place], [place] on 10/11/2018 and 12/15/2020. There are [...] compared to prior imaging studies performed at [facility] on 10/29/2015,and at [facility]. [place], [place] on 10/11/2018 and 12/15/2020. There are scattered areas of fibroglandular density. There is no suspicious abnormality in either breast. Impression: There is no mammographic evidence of malignancy. Annual screening mammography is recommended. OVERALL FINAL ASSESSMENT: BI-RADS CATEGORY 1: Negative. Linn Gómez NP IM MAMMO PROCEDURES Final Result * Hepatitis C antibody (11/25/2021 2:33 PM CATEGORY SPECIALIST) Hep C Ab NON-REACTI VE NON-REACT DANELLE [facility] SIGNAL TO CUT-OFF 0.04 <1.00 [facility] Comment: HCV antibody was non-reactive. There is no laboratory evidence of HCV infection. In most cases, no further action is required. However, if recent HCV exposure is suspected, a test for HCV RNA (test code 83844) is suggested. For additional information please refer to http://education.Status4.Expedit.us/faq/YLA97p4 (This link is being provided for informational/ educational purposes only.) Blood specimen (specimen) 11/25/2021 2:33 PM CATEGORY SPECIALIST 11/25/2021 2:34 PM CATEGORY SPECIALIST Linn Gómez NP LAB MICROBIOLOGY - G ENERAL ORDERABLES Final Result [facility] [address] [address] * THINPREP TIS PAP AND HR HPV DNA REFLEX GENOTYPES 16,18 (11/18/2021 4:58 PM CATEGORY SPECIALIST) CLINICAL INFORMATION: SCREENING PERIMENOPAUSAL [facility] LMP 11/02/2021 [facility] Previous Pap INFORMATION NOT PROVIDED [facility] Prev. Bx INFORMATION NOT PROVIDED [facility] SOURCE: Cervix, Endocervix [facility] Pap, specimen adequacy Satisfactory for evaluation. Endocervical/mckee sformation zone component present. [employer] [facility] HPV interp Negative for intraepithelial lesion or malignancy. [employer] [facility] COMMENTS This Pap test has been evaluated with computer assisted technology. [facility] Agricultural Technical Officer MMW, CT(ASCP) CT screening location: [place] [address] [facility] Comment [facility] Comment: EXPLANATORY NOTE: The Pap is [...] E6/E7 Not Detected NOT DETECTED [facility] Comment: Not Detected High Risk HPV types (16,18,31,33,35,39,45,51,52, 56,58,59,66,68) were not detected. Other HPV types which cause anogenital lesions may be present. The significance of the other types of HPV in malignant processes has not been established. Methodology: Real Time PCR 11/18/2021 4:58 PM CATEGORY SPECIALIST 11/21/2021 5:31 AM CATEGORY SPECIALIST Linn Gómez NP LAB CYTOLOGY ORDERAB LES Final Result [facility] [address] [place] [address] [facility] [address] [place] [address] from Last 3 Months or Most Recently Relevant to Health Maintenance Insurance [facility] FEDERAL [facility] FED[employer]AL Care Teams Nursing Attendant Relationship Specialty Start Date End Date Aicha Cuello MD [address] [place] [address] PCP - General Family Practice 10/15/18 Mariola Suarez PA [facility] [place] [address] Physician Matting Press Tender Dermatology 04/22/21 Jm Boyle MD [address] [place] [address] Associate Manager Dermatology 04/22/21 Vincent Byrd MD [address] [place] [address] Consulting Physician Plastic Surgery 12/05/22
--- OUTSIDE RECORDS SUMMARY | 2025-03-06 00:49 | XMS_ITS | Data Portability ---
Author Organization [facility] TERRIEladio Address [address] [place] [address] Assessment No assessment recorded. Plan of Treatment Reminders Order Date Submit Date Provider Last Modified By Organization Details Last Modified Time Details Appointments None recorded. Lab HbA1c (hemoglobi n A1c), blood 2017 018 [facility] (Lab), [address], [place], [address], 8 15:53:41 hepatitis panel (A+B+C), acute, serum 2017 018 [facility] [address], [place], [address], 8 15:53:41 CMP, serum or plasma 2017 018 [facility] [address], [place], [address], 8 15:53:41 HbA1c (hemoglobi n A1c), blood 2016 017 GAMA [facility] (Lab), [address], [place], [address], 7 06:17:11 CMP, serum or plasma 2016 017 [facility] (Lab), [address], [place], [address], 7 06:17:10 lipid panel w/ direct LDL, serum 2016 017 [facility] (Lab), [address], [place], [address], 7 06:17:11 glucose, fingerstic k, blood 2016 017 [email or web address] In-Office Order, Internal Use Only DO Not Attach Compendium DO Not Attach Compendium, Do Not Delete/merge, [id number] 7 09:38:46 TSH, serum or plasma 2016 017 [facility] (Lab), [address], [place], [address], 7 20:33:48 CBC 2016 017 [facility] (Lab), [address], [place], [address], 7 18:59:07 CMP, serum or plasma 2016 017 [facility] (Lab), [address], [place], [address], 7 20:38:54 HbA1c (hemoglobi n A1c), blood 2016 017 [facility] (Lab), [address], [place], [address], 7 08:29:52 lipid panel w/ direct LDL, serum 2016 017 [facility] (Lab), [address], [place], [address], 7 20:38:34 Referral None recorded. Procedures None recorded. Surgeries None recorded. Imaging None recorded. Medication Orders metformin 500 mg tablet 2017 018 [id number], [address], [place], [place], [id number], 8 15:53:02 atorvastat in 40 mg tablet 2017 018 INTERFACE [facility] #[id number], [address], [place], [place], [id number], 8 15:52:48 metformin 500 mg tablet 2016 017 INTERFACE [facility] #36437, [address], [place], [place], [id number], 7 10:53:05 atorvastat in 40 mg tablet 2016 017 INTERFACE [facility] #[id number], [address], [place], [place], [id number], 7 10:53:05 atorvastat in 40 mg tablet 2016 017 INTERFACE [facility] #44709, [address], [place], [place], [id number], 7 11:53:24 metformin 500 mg tablet 2016 017 INTERFACE [facility] #[id number], [address] , [place], [place], [id number], 7 11:53:30 Patient TargetsNo targets recorded. Patient Instructions Encounter Date Encounter Id Patient Instructions Last Modified By Organization Details Last Modified Time 02/07/2017 [id number] When You Want to Lose Weight: Care Instructions Not available 02/07/2017 12:48:13 learning about type 2 diabetes Not available 02/07/2017 12:48:13 type 2 diabetes: care instructions Not available 02/07/2017 12:48:13 hypothyroidism: care instructions Not available 02/07/2017 12:48:13 high cholesterol : care instructions Not available 02/07/2017 12:48:13 obtain old records hold meds for now. balbarcha Not available 02/07/2017 12:05:58 03/09/2017 [id number] When You Want to Lose Weight: Care Instructions Not available 03/09/2017 14:09:16 learning about type 2 diabetes Not available 03/09/2017 14:09:15 type 2 diabetes: care instructions Not available 03/09/2017 14:09:16 hypothyroidism: care instructions Not available 03/09/2017 14:09:16 high cholesterol : care instructions Not available 03/09/2017 14:09:16 06/12/2017 [id number] When You Want to Lose Weight: Care Instructions Not available 06/12/2017 11:49:57 hypothyroidism: care instructions Not available 06/12/2017 11:49:57 high cholesterol : care instructions Not available 06/12/2017 11:49:56 refused flu vaccine balbarcha Not available 06/12/2017 10:52:15 12/04/2017 [id number] When You Want to Lose Weight: Care [...] DO Not Attach Compendium, Do Not Delete/merge, [id number] 03/09/2017 11:38:35 02/08/20 17 02/07/2017 CBC WBC 6.7 K/uL 3.4-10 .8 Not Available [facility] (Lab) [address] [facility], [place], [address], 02/07/2017 18:59:07 02/08/20 17 02/07/2017 CBC red blood count 4.5 M/uL 4.2-5. 4 Not Available [facility] (Lab) [address] [place], [address], 02/07/2017 18:59:07 02/08/20 17 02/07/2017 CBC hemoglobin 13.1 g/dL 11.5-1 5.5 Not Available [facility] (Lab) [address] [place], [address], 02/07/2017 18:59:07 02/08/20 17 02/07/2017 CBC hematocrit 39.8 % 36.0-4 8.0 Not Available [facility] (Lab) [address] [place], [address], 02/07/2017 18:59:07 02/08/20 17 02/07/2017 CBC MCV 88 fL 80-95 Not Available [facility] (Lab) [address] [facility], [place], [address], 02/07/2017 18:59:07 02/08/20 17 02/07/2017 CBC MCHC 33 g/dL 32-36 Not Available [facility] (Lab) [address] [place], [address], 02/07/2017 18:59:07 02/08/20 17 02/07/2017 CBC platelets 304 K/uL 155-37 9 Not Available [facility] (Lab) [address] [facility], [place], [address], 02/07/2017 18:59:07 02/08/20 17 02/07/2017 CBC RDW 13.4 % 11.5-1 4.5 Not Available [facility] (Lab) [address] [place], [address], 02/07/2017 18:59:07 02/08/20 17 02/07/2017 TSH, serum or plasm a TSH 1.34 uIU/m L 0.50-4 .50 Not Available [facility] (Lab) [address] [place], [address], 02/07/2017 20:33:48 02/08/20 17 02/07/2017 lipid panel w/ direc t LDL, serum cholestrol 313.0 mg/dL 140.0- 200.0 high Not Available [facility] (Lab) [address] [place], [address], 02/07/2017 20:38:34 02/08/20 17 02/07/2017 lipid panel w/ direc t LDL, serum triglyceride s 227 mg/mL 150-19 9 high Not Available [facility] (Lab) [address] [facility], [place], [address], 02/07/2017 20:38:34 02/08/20 17 02/07/2017 lipid panel w/ direc t LDL, serum HDL cholesterol 51.0 mg/dL 40.0-1 00.0 Not Available [facility] (Lab) [address] [facility], [place], [address], 02/07/2017 20:38:34 02/08/20 17 02/07/2017 lipid panel w/ direc t LDL, serum LDL direct 242 mg/dL <=100 high Not Available [facility] (Lab) [address] [place], [address], 02/07/2017 20:38:34 02/08/20 17 02/07/2017 lipid panel w/ direc t LDL, serum cholhdl 6.10 mg/dL 0.00-4 .98 high Not Available [facility] (Lab) [address] [facility], [place], [address], 02/07/2017 20:38:34 02/08/20 17 02/07/2017 CMP, serum or plasm a glucose, serum 104 mg/dL 65-99 high Not Available [facility] (Lab) [address] [place], [address], 02/07/2017 20:38:54 02/08/20 17 02/07/2017 CMP, serum or plasm a BUN 9 mg/dL 8-26 Not Available [facility] (Lab) [address] [place], [address], 02/07/2017 20:38:54 02/08/20 17 02/07/2017 CMP, serum or plasm a creatinine, serum 0.60 mg/dL 0.50-1 .40 Not Available [facility] (Lab) [address] [facility], [place], [address], 02/07/2017 20:38:54 02/08/20 17 02/07/2017 CMP, serum or plasm a BUN/creatnin e ratio 15.0 Not Available [facility] (Lab) [address] [facility], [place], [address], 02/07/2017 20:38:54 02/08/20 17 02/07/2017 CMP, serum or plasm a sodium, serum 140.0 mEq/L 136.0- 144.0 Not Available [facility] (Lab) [address] [place], [address], 02/07/2017 20:38:54 02/08/20 17 02/07/2017 CMP, serum or plasm a potassium, serum 4.3 mmol/ L 3.5-5. 3 Not Available [facility] (Lab) [address] [place], [address], 02/07/2017 20:38:54 02/08/20 17 02/07/2017 CMP, serum or plasm a chloride, serum 100 mmol/ l 101-11 1 low Not Available [facility] (Lab) [address] [place], [address], 02/07/2017 20:38:54 02/08/20 17 02/07/2017 CMP, serum or plasm a carbon dioxide total 23.8 mmol/ L 21.0-3 2.0 Not Available [facility] (Lab) [address] [place], [address], 02/07/2017 20:38:54 02/08/20 17 02/07/2017 CMP, serum or plasm a aniongp 21.0 mmol/ L Not Available [facility] (Lab) [address] [place], [address], 02/07/2017 20:38:54 02/08/20 17 02/07/2017 CMP, serum or plasm a calcium, serum 9.3 mg/dL 8.2-10 .0 Not Available [facility] (Lab) [address] [place], [address], 02/07/2017 20:38:54 02/08/20 17 02/07/2017 CMP, serum or plasm a total protein 7.3 g/dL 6.7-8. 2 Not Available [facility] (Lab) [address] [place], [address], 02/07/2017 20:38:54 02/08/20 17 02/07/2017 CMP, serum or plasm a albumin, serum 4.6 g/dL 3.5-5. 5 Not Available [facility] (Lab) [address] [place], [address], 02/07/2017 20:38:54 02/08/20 17 02/07/2017 CMP, serum or plasm a agratio 1.7 Not Available [facility] (Lab) [address] [place], [address], 02/07/2017 20:38:54 02/08/20 17 02/07/2017 CMP, serum or plasm a bilt 0.6 mg/dL 0.2-1. 0 Not Available [facility] (Lab) [address] [place], [address], 02/07/2017 20:38:54 02/08/20 17 02/07/2017 CMP, serum or plasm a AST 56.0 U/L 10.0-4 2.0 high Not Available [facility] (Lab) [address] [place], [address], 02/07/2017 20:38:54 02/08/20 17 02/07/2017 CMP, serum or plasm a ALT 66.0 U/L 10.0-6 0.0 high Not Available [facility] (Lab) [address] [place], [address], 02/07/2017 20:38:54 02/08/20 17 02/07/2017 CMP, serum or plasm a alk phos 78.0 IU/L 42.0-1 21.0 Not Available [facility] (Lab) [address] [place], [address], 02/07/2017 20:38:54 02/08/20 17 02/07/2017 CMP, serum or plasm a osmol 278.0 mOsm/ L 275.0- 301.0 Not Available [facility] (Lab) [address] [place], [address], 02/07/2017 20:38:54 02/08/20 17 02/07/2017 CMP, serum or plasm a eGFR, AM 140 m/lmi n/1.7 3_m >=60 Not Available [facility] (Lab) [address] [place], [address], 02/07/2017 20:38:54 02/08/20 17 02/07/2017 CMP, serum or plasm a eGFR, non- AM 116 mL/mi n/1.7 3/m >=60 Not Available [facility] (Lab) [address] [facility], [place], [address], 02/07/2017 20:38:54 02/08/20 17 02/08/2017 TSH, serum or plasm a TSH 1.400 uIU/m L 0.450- 4.500 Not Available [facility] (Lab) [address] [place], [address], 02/08/2017 08:27:45 02/08/20 17 02/08/2017 TSH, serum or plasm a T4,free(dire ct) 1.12 NG/dL 0.82-1 .77 Not Available [facility] (Lab) [address] [place], [address], 02/08/2017 08:27:45 02/08/20 17 02/08/2017 HbA1c (hemo globi n A1c), blood hemoglobin A1C 6.8 % 4.8-5. 6 high . Pre-d iabet es: 5.7 - 6.4 Diabe sj: >6.4 Glyce waleska contr ol for adult s with diabe sj: <7.0 Not Available [facility] (Lab) [address], [place], [address], 02/08/2017 08:29:52 06/12/2006/13/2017 CMP, serum or plasm a glucose, serum 106 mg/dL 65-99 above high normal Not Available [facility] ([facility]) [address] [place], [address], 2017 06:17:10 06/12/2006/13/2017 CMP, serum or plasm a BUN 9 mg/dL 6-24 Not Available [facility] ([facility]) [address] [place], [address], 2017 06:17:10 06/12/2006/13/2017 CMP, serum or plasm a creatinine, serum 0.59 mg/dL 0.57-1 .00 Not Available [facility] ([facility]) [address] [place], [address], 2017 06:17:10 06/12/2006/13/2017 CMP, serum or plasm a eGFR if nonafricn AM 112 mL/mi n/1.7 3 >59 Not Available [facility] ([facility]) [address] [place], [address], 2017 06:17:10 06/12/2006/13/2017 CMP, serum or plasm a eGFR if africn AM 129 mL/mi n/1.7 3 >59 Not Available [facility] ([facility]) [address] [place], [address], 2017 06:17:10 06/12/2006/13/2017 CMP, serum or plasm a BUN/creatini ne ratio 15 9-23 Not Available [facility] ([facility]) [address] [place], [address], 2017 06:17:10 06/12/2006/13/2017 CMP, serum or plasm a sodium, serum 139 mmol/ L 134-14 4 Not Available [facility] ([facility]) [address] [place], [address], 2017 06:17:10 06/12/2006/13/2017 CMP, serum or plasm a potassium, serum 4.3 mmol/ L 3.5-5. 2 Not Available [facility] ([facility]) [address] [place], [address], 2017 06:17:10 06/12/2006/13/2017 CMP, serum or plasm a chloride, serum 100 mmol/ L 96-106 Not Available [facility] ([facility]) [address] [place], [address], 2017 06:17:10 06/12/2006/13/2017 CMP, serum or plasm a carbon dioxide, total 22 mmol/ L 18-29 Not Available [facility] ([facility]) [address] [place], [address], 2017 06:17:10 06/12/2006/13/2017 CMP, serum or plasm a calcium, serum 9.3 mg/dL 8.7-10 .2 Not Available [facility] ([facility]) [address] [place], [address], 2017 06:17:10 06/12/2006/13/2017 CMP, serum or plasm a protein, total, serum 7.1 g/dL 6.0-8. 5 Not Available [facility] ([facility]) [address] [place], [address], 2017 06:17:10 06/12/20 17 2017 CMP, serum or plasm a albumin, serum 4.4 g/dL 3.5-5. 5 Not Available [facility] ([facility]) [address] [place], [address], 2017 06:17:10 06/12/20 17 2017 CMP, serum or plasm a globulin, total 2.7 g/dL 1.5-4. 5 Not Available [facility] ([facility]) [address] [place], [address], 2017 06:17:10 06/12/2006/13/2017 CMP, serum or plasm a A/G ratio 1.6 1.2-2. 2 Not Available [facility] ([facility]) [address] [place], [address], 2017 06:17:10 06/12/2006/13/2017 CMP, serum or plasm a bilirubin, total 0.6 mg/dL 0.0-1. 2 Not Available [facility] ([facility]) [address] [place], [address], 2017 06:17:10 06/12/2006/13/2017 CMP, serum or plasm a alkaline phosphatase, S 86 IU/L 39-117 Not Available [facility] ([facility]) [address] [place], [address], 2017 06:17:10 06/12/2006/13/2017 CMP, serum or plasm a AST (SGOT) 53 IU/L 0-40 above high normal Not Available [facility] ([facility]) [address] [place], [address], 2017 06:17:10 06/12/2006/13/2017 CMP, serum or plasm a ALT (SGPT) 73 IU/L 0-32 above high normal Not Available [facility] ([facility]) [address] [place], [address], 2017 06:17:10 06/12/20 17 2017 lipid panel , serum cholesterol, total 160 mg/dL 100-19 9 Not Available [facility] ([facility]) [address] [place], [address], 2017 06:17:11 06/12/20 17 2017 lipid panel , serum triglyceride s 137 mg/dL 0-149 Not Available [facility] ([facility]) [address] [place], [address], 2017 06:17:11 06/12/20 17 2017 lipid panel , serum HDL cholesterol 51 mg/dL >39 Not Available [facility] ([facility]) [address] [place], [address], 2017 06:17:11 06/12/20 17 2017 lipid panel , serum VLDL cholesterol gio 27 mg/dL 5-40 Not Available [facility] ([facility]) [address] [place], [address], 2017 06:17:11 06/12/20 17 2017 lipid panel , serum LDL cholesterol calc 82 mg/dL 0-99 Not Available [facility] ([facility]) [address] [place], [address], 2017 06:17:11 06/12/2006/13/2017 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 6 above high normal Pre-d iabet es: 5.7 - 6.4 Diabe sj: >6.4 Glyce waleska contr ol for adult s with diabe sj: <7.0 Not Available [facility] ([facility]) [address], [place], [address], 2017 06:17:11 Result Notes None recorded. Problems Name Problem SNOMED Code Status Onset Date Resolution Date Notes Provider Name and Address Organization Details Recorded Time Liver enzymes level above reference range 357759509 Active 2017 Rush Lennon MD Attn: Gissell drew,[address] [facility], [place], [address], [facility] 8 15:52:02 Obesity 521416330 Active 2016 Rush Lennon MD Attn: Gissell drew,[address] [facility], [place], [address], [facility] 7 11:59:17 Hypothyroi dism 27608401 Active 2016 not on meds. not on meds for years Rush Lennon MD Attn: Gissell drew,[address] [facility], [place], [address], [facility] 7 11:59:37 Hyperlipid emia 30932468 Active 2016 recently diagnosed Rush Lennon MD Attn: Gissell russell,[address] [facility], [place], [address], [facility] 7 11:59:53 Type 2 diabetes mellitus 20072281 Active 2016 new onset / not on meds Rush Lennon MD Attn: Gissell russell,[address] [facility], [place], [address], [facility] 7 12:00:10 Problem Notes None recorded. Procedures Surgical History Date Name Laterality Status Provider Name and Address Organization Details Recorded Time Diabetic Foot Exam completed Altagracia Johnson MA [facility] 06/12/2017 10:26:52 Imaging Results None recorded. Procedure [...] Updated DateTime 8 162.56 cm 38.6 kg/m2 696548. 28 g 76 /min 24 /min 98.2 [degF] 110 mm[Hg] 80 mm[Hg] Altagracia Johnson [place] [facility] 8 15:30:11 Date Recorded Body height Body weight Body mass index (BMI) Heart rate Respiratory rate Body temperature Systolic blood pressure Diastolic blood pressure Provider Name and Address Organization Details Last Updated DateTime 7 162.56 cm 346679. 61 g 40.2 kg/m2 76 /min 24 /min 98.1 [degF] 128 mm[Hg] 80 mm[Hg] Altagracia Johnson MA [facility] 7 11:46:12 Date Recorded Body height Body mass index (BMI) Body weight Heart rate Respiratory rate Body temperature Systolic blood pressure Diastolic blood pressure Provider Name and Address Organization Details Last Updated DateTime 7 162.56 cm 40.9 kg/m2 064175. 98 g 76 /min 24 /min 98.5 [degF] 130 mm[Hg] 100 mm[Hg] Altagracia Johnson [place] [facility] 7 11:36:03 Date Recorded Body height Body mass index (BMI) Body weight Heart rate Respiratory rate Body temperature Systolic blood pressure Diastolic blood pressure Provider Name and Address Organization Details Last Updated DateTime 7 162.56 cm 40.2 kg/m2 708139. 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 None Information not available 02/07/2017 Mental Status None recorded. Family History Nothing Reported. Medical History No medical history recorded. Gynecological HistoryNo gynecological history recorded. Obstetrics History GPAL:G 0 P 0 0 0 0 Past Encounters Encounter ID Performer Location Encounter Start Date Encounter Closed Date Diagnosis/Indication Diagnosis SNOMED-CT Code Diagnosis ICD10 Code Diagnosis Note [id number] Rush Lennon MD [facility] ([facility]) [address] [place] [address] 02/07/2017 11:23:41 02/13/2017 14:29:19 Type 2 diabetes mellitus 68905558 E11.9 newly diagnosedn ot on any meds.obtai n labs today Hyperlipidemia 30570095 E78.5 Hypothyroidism 01401060 E03.9 not on any meds. obtain TSH Obesity 442596106 E66.9 [id number] Rush Lennon MD [facility] (Adult[facility]) [address] [place] [address] 03/09/2017 11:27:15 03/12/2017 14:54:17 Diabetes mellitus 57607277 E11.9 discussed with pt Type 2 tanika betes mellitus 01126174 E11.9 Hyperlipidemia 10701789 E78.5 start Atorvastat in Hypothyroidism 94761391 E03.9 not on any meds. obtain TSH Obesity 555717206 E66.9 [id number] Rush Lennon MD [facility] (Adult[facility]) [address] [place] [address] 06/12/2017 10:05:01 06/20/2017 12:16:02 Hyperlipidemia 18039280 E78.5 continue Atorvastat inlabs today Hypothyroidism 41929129 E03.9 not on any meds.jennifer l TSH Obesity 288120045 E66.9 diet/exerc ise Type 2 tanika betes mellitus 40340414 E11.9 continue meds. [id number] Rush Lennon MD [facility] (Adult/Fa m Med) [address] [place] [address] 12/04/2017 15:21:41 12/06/2017 11:48:54 Type 2 diabetes mellitus 38469862 E11.9 continue meds. Hyperlipidemia 78080339 E78.5 continue Atorvastat inlabs today Obesity 708985829 E66.9 diet/exerc ise Liver enzy mes level above reference range 099221910 R74.8 secondary to Obesity/hy per;lipide estelle or statin. R/O viral.repe at labshepati tis profile Health Concerns Section Related Observation LastModified by Organization Detai ls LastModified Time None Recorded Concern Status LastModified by Organization Details LastModified Time None Recorded Advance Directives Directive N: Payers Insurance Date Sequence Insurance Name Policy Number Policy Ferreira Covered Member ID Ferreira Member ID Guarantor Name 12/01/2017 1 [id number] Armida Davis [id number] Armida Davis Notes Date Note Type Note Provider Name and Address Organization Details Recorded Time 02/07/2017 text/html no complaints Rush Lennon MD Attn: Accounting,[address] [place], [address], [facility] 02/07/2017 12:06:29 03/09/2017 text/html F/U Rush Lennon MD Attn: [address]ing,[address] [place], [address], [facility] 03/09/2017 11:53:37 06/12/2017 text/html no new complaints Rush Lennon MD Attn: Accounting,[address] [place], [address], [facility] 06/12/2017 10:53:47 12/04/2017 text/html no new complaints Rush Lennon MD Attn: Accounting,[address] [place], [address], [facility] 12/04/2017 15:53:03 OBGyn Episode No OBEpisode recorded.
--- OUTSIDE RECORDS SUMMARY | 2025-03-06 00:49 | XMS_ITS | Encounter Summary ---
Author Organization [facility] Healthcare Address [address] [place] [address] Care Team Providers Care Brick Baker Name Role Phone Aicha Cuello MD Primary Care Provider Reason for Visit * Diagnostic Imaging (Routine) - Closed Specialty Diagnoses / Procedures Referred By Erisac t Referred To Contact Diagnoses Lung nodule Procedures Breast Imaging Screening Outside Reference Referral, Self Referral ID Status Reason Start Date Expiration Date Visits Re quested Visits Authorized [id number] Closed 01/12/2022 02/11/2023 1 1 Encounter Details Date Type Department Care Team (Late st Contact Info) Description 12/15/2020 Hospital Encounter [facility] [address] [place] [address] Social History Tobacco Use Types Packs/Day Years [...] on file 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 There will be no report generated by a [facility] Radiologist. Narrative [id number] - 01/12/2022 10:01 [...] documented as of this encounter Care Teams Brick Baker Relationship Specialty Start Date End Date Aicha Cuello MD [facility] [place] [address] PCP - General Family Practice 10/15/18 documented as of this encounter
--- OUTSIDE RECORDS SUMMARY | 2025-03-06 00:49 | XMS_ITS | Clinical Summary ---
Author Organization [facility] Address [address] [place] [address] Care Team Providers Care Handy Man Name Role Phone Aicha Cuello MD Primary Care Provider Mariola Suarez Unavailable [phone] Jm Boyle MD Unavailable [phone] Vincent Byrd MD Unavailable [phone] Allergies Active Allergy Reactions Criticality Noted Date [...] (11/22/2022): Added automatically from request for surgery [id number] Allergic rhinitis due to animal hair and [...] Department Care Team Description 12/23/2024 Orders Only [facility] Obstetrics and Gynecology [address] 7[address] [place] [address] Isaura Olivares MD 12/22/2024 1:00 PM CDT Office Visit [facility] Obstetrics and Gynecology [address] 1[address] [place] [address] Isaura Olivares MD Low libido (Primary Dx); [...] on file Legal Sex Female 10:50 PM ADMINISTRATION DEAN Gender Identity Female 10/15/2018 11:21 AM ADMINISTRATION DEAN Sexual Orientation Not on file Occupation Industry [...] 37 C (98.6 F) 10/28/2024 10:45 AM ADMINISTRATION DEAN Respiratory Rate 18 10/28/2024 10:45 AM ADMINISTRATION DEAN Oxygen Saturation 100% 05/01/2024 12:10 PM CDT [...] HEPATITIS C ANTIBODY Routine 11/25/2021 2:33 PM ADMINISTRATION DEAN Screening for STD (sexually transmitted disease) THINPREP TIS PAP AND HR HPV DNA REFLEX GENOTYPES 16,18 Routine 11/18/2021 4:58 PM ADMINISTRATION DEAN from Last 3 Months or Most Recently [...] MD LAB BLOOD ORDERABLES Fi nal Result [facility] Department of Laboratories [place], [place] [id number] * (ABNORMAL) POCT hemoglobin A1c (04/17/2024 11:09 [...] and children were not included. (Diabetes Care [id number], 2008). The eAG is not equivalent to a fasting glucose. Blood 04/17/2024 11:0 9 AM CDT 04/17/2024 11:09 AM CDT us Isaura Olivares MD POINT OF CARE TEST ROGER MCCLENDON Final Result [facility] [place] [address] * Albumin Creatinine Ratio, Urine (03/28/2023 3:11 [...] URINE ORDERABLES Zora l Result [facility] [address] [place] [address] * Lipid panel (05/12/2022) Blood specimen (specimen) [...] compared to prior imaging studies performed at [facility] on 10/29/2015, and at [facility]. [place], [place] on 10/11/2018 and 12/15/2020. There are [...] compared to prior imaging studies performed at [facility] on 10/29/2015,and at [facility]. [place], [place] on 10/11/2018 and 12/15/2020. There are scattered areas of fibroglandular density. There is no suspicious abnormality in either breast. Impression: There is no mammographic evidence of malignancy. Annual screening mammography is recommended. OVERALL FINAL ASSESSMENT: BI-RADS CATEGORY 1: Negative. Linn Gómez NP IMG MAMMO PROCEDURES Final Result * Hepatitis C antibody (11/25/2021 2:33 PM ADMINISTRATION DEAN) Hep C Ab NON-REACTI VE NON-REACT DANELLE [facility] SIGNAL TO CUT-OFF 0.04 <1.00 [facility] Comment: HCV antibody was non-reactive. There is no laboratory evidence of HCV infection. In most cases, no further action is required. However, if recent HCV exposure is suspected, a test for HCV RNA (test code 02718) is suggested. For additional information please refer to http://education.[employer]/faq/QUJ03q6 (This link is being provided for informational/ educational purposes only.) Blood specimen (specimen) 11/25/2021 2:33 PM ADMINISTRATION DEAN 11/25/2021 2:34 PM ADMINISTRATION DEAN Linn Gómez NP LAB MICROBIOLOGY - G ENERAL ORDERABLES Final Result [facility] [address] [place] [address] * THINPREP TIS PAP AND HR HPV DNA REFLEX GENOTYPES 16,18 (11/18/2021 4:58 PM ADMINISTRATION DEAN) Pathologist [facility] CLINICAL INFORMATION: SCREENING PERIMENOPAUSAL [facility] LMP 11/02/2021 [facility] Previous Pap INFORMATION NOT PROVIDED [facility] Prev. Bx INFORMATION NOT PROVIDED [facility] SOURCE: Cervix, Endocervix [facility] Pap, specimen adequacy Satisfactory for evaluation. Endocervical/mckee sformation zone component present. [facility] HPV interp Negative for intraepithelial lesion or malignancy. [facility] [employer] [facility] COMMENTS This Pap test has been evaluated with computer assisted technology. [facility] Channeling Machine Runner MMW, CT(ASCP) CT screening location: [place] [address] [employer] [facility] Comment [facility] Comment: EXPLANATORY NOTE: The Pap is a [...] E6/E7 Not Detected NOT DETECTED [facility] Comment: Not Detected High Risk HPV types (16,18,31,33,35,39,45,51,52, 56,58,59,66,68) were not detected. Other HPV types which cause anogenital lesions may be present. The significance of the other types of HPV in malignant processes has not been established. Methodology: Real Time PCR 11/18/2021 4:58 PM ADMINISTRATION DEAN 11/21/2021 5:31 AM ADMINISTRATION DEAN Linn Gómez NP LAB CYTOLOGY ORDERAB LES Final Result [facility] [address] [place] [address] [facility] [address] [facility] [place] [address] from Last 3 Months or Most Recently Relevant to Health Maintenance Insurance [facility] [employer] [facility] [employer] Care Teams Handy Man Relationship Specialty Start Date End Date Aicha Cuello MD [address] [facility] [place] [address] PCP - General Family Practice 10/15/18 Mariola Suarez PA [address] [facility] [address] Physician [place] [facility] Dermat[facility] 04/22/21 Jm Boyle MD [address] [facility] [place] [address] Network Professional Dermatology 04/22/21 Vincent Byrd MD [address] [facility] [place] [address] Consulting Physician Plastic Surgery 12/05/22
--- OUTSIDE RECORDS SUMMARY | 2025-03-06 00:50 | XMS_ITS | Clinical Summary ---
Author Organization [facility] Address [address] [place] [address] Care Team Providers Care Keyboarding Clerk Name Role Phone Aicha Cuello MD Primary Care Provider [phone] Allergies Active Allergy Reactions Criticality Noted Date Comments Amoxicillin Diarrhea Low Reaction: Diarrhea, Potassium Diarrhea Low Reaction: Diarrhea, Medications Multiple Vitamins-Minerals (ONE DAILY CALCIUM/IRON) Tab Take 1 tablet by mouth daily. Active Cholecalciferol 50 MCG (1999 UT) Cap Take 2,000 Units by mouth daily. Active AUVI-Q 0.3 MG/0.3ML injection see administration instructions. PRN 10/12/19 22 Active ALLERGY RELIEF 180 MG tablet Take 1 tablet (180 mg total) by mouth daily. PRN 11/22/19 22 Active ezetimibe (ZETIA) 10 MG tabletIndications: Hyperlipidemia, unspecified hyperlipidemia type Take 1 tablet (10 mg total) by mouth daily. 90 tablet 1 09/27/19 23 Active rosuvastatin (CRESTOR) 10 MG tabletIndications: Hyperlipidemia, unspecified hyperlipidemia type Take 1 tablet (10 mg total) by mouth daily. 90 tablet 2 09/27/19 23 Active Docusate Sodium (DSS) 100 MG Cap Take 100 mg by mouth as needed. 07/24/20 23 Active buPROPion XL (WELLBUTRIN XL) 300 MG 24 hr tabletIndications: Moderate major depression (CMS/HCC),Severe anxiety TAKE 1 TABLET(300 MG) BY MOUTH DAILY 90 tablet 11/27/19 24 Active polyethylene glycol (GLYCOLAX) 17 GM/SCOOP powder daily as needed. 05/01 24 Active naproxen (NAPROSYN) 500 MG tabletIndications: Chronic midline low back pain with bilateral sciatica Take 1 tablet (500 mg total) by mouth 2 (two) times daily as needed. Take with food and plenty of water. 60 tablet 1 08/29/20 24 Active hydrOXYzine (ATARAX) 10 MG tabletIndications: Mild anxiety,Primary insomnia Take 1 tablet (10 mg total) by mouth nightly as needed for Itching. 30 tablet 2 11/06/19 25 Active OZEMPIC 2 mg/dose injection (PEN) Inject 2 mg into the skin once a week. 01/14/20 25 Active testosterone (ANDROGEL) 50 MG of testosterone/5 GM (1%) Gel gel Apply 2-3 drops to the forearms daily for decreased libido 12/24/19 25 Active busPIRone (BUSPAR) 5 MG tabletIndications: Mild anxiety Take 2 tablets (10 mg total) by mouth nightly at bedtime. 01/23/20 25 Active tamsulosin (FLOMAX) 0.4 MG CapIndications:Oth er microscopic hematuria,History of kidney stones Take 1 capsule (0.4 mg total) by mouth daily as needed. 30 capsule 01/31/20 25 Active Active Problems Problem Noted Date Diagnosed Date Low libido 10/09/2024 Vaginal atrophy 10/09/2024 Recurrent depression 06/30/2024 Dysthymic disorder 06/30/2024 Anxiety 06/30/2024 Carpal tunnel syndrome of right wrist 11/22/2022 Overview (04/19/2023): Added automatically from request for surgery [id number] Rash 09/27/2022 Pure hypercholesterolemia 09/27/2022 Elevated blood pressure read ing without diagnosis of hypertension 09/27/2022 Allergic rhinitis due to animal hair and dander 09/27/2022 Chronic right shoulder pain 08/16/2022 Impingement syndrome of right shoulder 2 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 Dysuria 08/23/2020 Dyslipidemia 05/10/2020 Morbid obesity with body mass index of 40.0-49.9 05/10/2020 Postoperative pain 05/10/2020 Obstructive sleep apnea syndrome in adult 2019 Uncontrolled type 2 diabetes mellitus with hyperglycemia ([facility]) 05/10/2020 S/P laparoscopic sleeve gastrectomy 05/10/2020 Vitamin D deficiency 03/10/2020 Hypersomnia 11/14/2019 Familial hypercholesterolemia 07/16/2019 Fatigue due to sleep pattern disturbance 019 Vaginal itching 01/02/2018 Yeast infection of the vagina 01/02/2018 Elevated liver enzymes 12/04/2017 Vaginal discharge 11/28/2017 Encounter for long-term current use of medicatio n 08/15/2017 Muscle pain 08/15/2017 Type 2 diabetes mellitus ([facility]) 08/15 Hypothyroidism 02/07/2017 Menorrhagia 12/22/2016 Hot flashes due to menopause 02/24/2014 Uterine bleeding 02/24/2014 Obesity, diabetes, and hyper tension syndrome ([facility]) 01/31/2014 Overview (10/21/2018): Overview: Obesity Overview: Metabolic syndrome Ankle pain 01/31/2014 Overview (10/21/2018): Overview: Right ankle pain History of hypothyroidism 01/31/2014 Overview (10/21/2018): Overview: History of hypothyroidism History of surgical procedure 01/31/2014 Overview (10/21/2018): Overview: Bariatric surgery status Impaired fasting glucose 01/31/2014 Overview (10/21/2018): Overview: IFG (impaired fasting glucose) Hyperlipidemia 01/31/2014 Overview (10/21/2018): Overview: Hyperlipidemia Seasonal allergic rhinitis 01/31/2014 Overview (10/21/2018): Overview: Seasonal allergies Mixed hypercholesterolemia and hypertriglyceride estelle 01/31/2014 Overview (10/08/2019): Overview: Hyperlipidemia Overview: Overview: Hyperlipidemia Class 3 severe obesity with body mass index (BMI) of 40.0 to 44.9 in adult 01/31/2014 Overview (01/05/2022): Overview: Obesity Obesity Overview: Obesity Resolved Problems Problem Noted Date Diagnosed Date Resolved Date Screening examination for ST D (sexually transmitted disease) 01/02/2018 05/28/2020 Encounter for preventive health examination 02/09/2009 05/28/2020 Encounters Date Type Department Care Team Description 02/19/[address] [address] Aicha Cuello MD Results 02/06/2025 1:22 PM CDT - 02/06/2025 11:59 PM CDT Hospital Encounter [facility] [address] [place] [address] Aicha Cuello MD Discharge Disposition: Home or Self Care (Routine Discharge) 02/06/2025 Travel 01/30/2025 Results Follow-Up [address] [address] Aicha Cuello MD A1C (BACK OFFICE), URINALYSIS AUTO DIP, URINE BACTERIA CULTURE 01/22/2025 7:40 AM CDT Office Visit [address] [address] Aicha Cuello MD Depression; Carpal Tunnel Syndrome (right); Diabetes; Hyperlipidemia; Obesity 01/22/2025 - 01/22/2025 11:59 PM CDT Hospital Encounter [facility] [place] [address] Aicha Cuello MD Discharge Disposition: Home or Self Care (Routine Discharge) 01/22/2025 Results Follow-Up [address] [address] Aicha Cuello MD COMPREHENSIVE METABOLIC PANEL, LIPID PANEL, TSH W/REFLEX, ALBUMIN URINE RANDOM W/CREATININE 01/22/2025 Results Follow-Up [facility] Family [facility] - [place] [address] [place] [address] Aicha Cuello MD A1C (BACK OFFICE) 01/22/2025 Travel from Last 3 Months Immunizations Immunization Administration Dates Next Due Adenovirus Vaccine 09/24/1990 Afluria 36 MONTHS+ (Prefille d Syringe IIV4) 07/28/2019 FLUCELVAX (ccIIV3, TRIVALENT, 0.5mL) 06/30/2024 Flulaval Quad (Prefilled Syringe) 06/23/2020 H1N1 Injectable 2008 Influenza 11/20/2009 Hepatitis A (Havrix [address]) 09/02/2004,2003 Hepatitis B (Generic: Adult) 10/04/2010,04/04/20 10,12/29/2009 Influenza (FluMist) 07/04/2010 Influenza (Generic) 07/28/2019, 8,07/10/2017,08/05,07/31/2015,07/21/2013,06/29/2012 ,08/24/2011,08/21/2009,08/22/2008,04/2007,10/21/2006,10/12/2003, 3 Influenza Adult (Generic) 07/10/2023,,08/04/2021,06/23,07/28/2019,06/24/2018,07/24/2016 ,08/01/2014 MMR (MMRII) 07/31/2015,08/24/1992 MODERNA COVID-19 BIVALENT (1 2+), MRNA, LNP-S, PF 06/29/2022 MODERNA COVID-19 (12+) MRNA, LNP-S, PF, 100 MCG/ 0.5 ML DOSE 01/25/2021,12/28/2020 MODERNA COVID-19 ([employer] [place]), MRNA, LNP-S, PF, 50 MCG/ 0.25 ML DOSE 08/04/2021 Measles/Rubella 09/24/1990 Meningococcal (Menomune) 03/01/1991 Plague Vaccine 2 Bu/Ml Im Inj 07/20/1993 Pneumococcal (Pneumovax 23) 01/14/2020 Pneumococcal (Prevnar 20) 07/13/2023 Polio Opv (Generic) 10/11/1990 Shingrix 11/23/2023,07/13/2023 Td (TDVAX) 10/12/2003,09/24/1990 Tdap (Generic) 12/29/2009 Typhoid (Typhim ) 08/24/1992 Varicella (Varivax) 07/19/2017,07/31/2015 Social History Tobacco Use Types Packs/Day Years Used Date Smoking Tobacco: Never Smokeless Tobacco: Never Alcohol Use Standard Drinks/Week Comments Not Currently 0 (1 standard drink = 0.6 oz pur e alcohol) PHQ-2 Answer Date Recorded Patient Health Questionnaire-2 Score 0 01/22/2025 Comments No Sex and Gender Information Value Date Recorded Sex Assigned at Female 10/10/2024 3:28 PM JOB ESTIMATOR Legal Sex Female 8:27 PM CDT Gender Identity Female 11/06/2024 2:42 PM JOB ESTIMATOR Sexual Orientation Not on file Last Filed Vital Signs Vital Sign Reading Time Taken Comments Blood Pressure 118/76 01/22/2025 8:[address] Hardin's manual read Pulse 77 10/10/2024 3:50 PM JOB ESTIMATOR Temperature 36.7 C (98.1 F) 10/10/2024 3:50 PM JOB ESTIMATOR Respiratory Rate 24 10/10/2024 3:50 PM JOB ESTIMATOR Oxygen Saturation 100% 10/10/2024 3:5 0 PM JOB ESTIMATOR Inhaled Oxygen Concentration - - Weight 87.5 kg (193 lb) 10/10/2024 3:50 PM JOB ESTIMATOR Height 162.6 cm (5' 4) 10/10/2024 3:50 PM JOB ESTIMATOR verbal Body Mass Index 33.13 10/10/2024 3:50 PM JOB ESTIMATOR Plan of Treatment Upcoming Encounters Date Type Department Care Team (Late st Contact Info) Description 04/27/2025 2:40 PM CDT Office Visit [facility] Family Medicine [facility] [address] [place] [phone] Aicha Cuello MD [address] [place] [address] Health Maintenance Due Date Last Done Comments Diabetes: Retinopathy Eye Exam 1990 Hepatitis C 1990 Annual Physical 09/19/2019 09/19/2018 DTaP, Tdap and Td Vaccines (3 - Td or Tdap) 12/30/2019 12/29/2009, 10/12/2003, 09/24/1990 Mammogram Screening 04/17/2025 04/17/2023, 01/09/2022, 01/09/2022, Additional history exists Hemoglobin A1C 07/25/2025 01/22/2025, 08/17, 04/17/2024, Additional history exists Kidney Health Evaluation 09/06/2025 09/06/2024 Lipid Panel 09/06/2025 09/06/2024, 06/18, 03/23/2023, Additional history exists Colorectal Cancer Screening Colonoscopy (10 Years) 11/27/2028 11/27/2018 Meningococcal Vaccine Aged Out 03/01/1991 No heath rehana eligible based on patient's age to complete this topic Hepatitis B Vaccines Completed 10/04/2010, 04/04/2010, 12/29/2009 Pneumococcal Vaccine: 50+ Years Completed 07/13/2023, 01/14/2020 Zoster Vaccines Completed 11/23/2023, 07/13/2023 COVID-19 Vaccine Completed 06/30/2024, , 08/04/2021, Additional history exists PHQ-2 (Physician [place]) Completed 01/22/2025 Meningococcal B Vaccine Aged Out No l onger eligible based on patient's age to complete this topic RSV Immunizations Under 20 Months Aged Out No longer eligible based on patient's age to complete this topic Procedures Procedure Name Priority Date/Time Associated Diagnosis Comments CT ABD+PEL WO CON ANNAMARIE 02/06/2025 1:4 7 PM CDT Gross hematuria Flank pain URINE BACTERIA CULTURE Routine 01/22/2025 1:40 PM CDT Gross hematuria URINALYSIS AUTO DIP Routine 01/22/2025 Gross hematuria HEMOGLOBIN, GLYCOSYLATED Routine 01/22/2025 Type 2 diabetes mellitus with hyperlipidemia ([facility] HHS/HCC) COLLECT.CAPILLARY (FNGR,HEEL,EAR) Routine 01/22/2025 Type 2 diabetes mellitus with hyperlipidemia ([facility] HHS/HCC) LIPID PANEL Routine 09/06/2024 7:28 AM JOB ESTIMATOR Hyperlipidemia, unspecified hyperlipidemia type Class 1 obesity due to excess calories without serious comorbidity with body mass index (BMI) of 32.0 to 32.9 in adult MG SCREENING W LISA EARL DIGI Routine 04/17/2023 4:27 PM CDT Encounter for screening mammogram for malignant neoplasm of breast COLONOSCOPY Routine 11/27/2018 6:15 AM CDT from Last 3 Months or Most Recently Relevant to Health Maintenance Results * CT ABD+PEL WO CON (02/06/2025 1:47 PM CDT) Anatomical Region Laterality Modality Abdomen Computed Tomogra phy 02/06/2025 9:30 PM CDT Impressions 02/06/2025 9:53 PM CDT Impression: 1. Approximately 7 mm stone in the proximal right ureter with inflammatory stranding and accompanying mild hydroureter. 2. Mild hydronephrosis of the right kidney. 3. Multiple calculi within the right kidney Preliminary: Estrellita Aviles MD02/06/2025 9:41 PM The attending radiologist has reviewed the image(s) and agrees with the content of this report. Referred By: AICHA CUELLO Interpreted By: Estrellita Aviles MD, 02/06/2025 9:30 PM Narrative 02/06/2025 9:53 PM CDT [address] [address] Examination: CT abdomen and pelvis without IV contrast. Clinical Information: Hematuria, right-sided flank pain Comparison: CT abdomen and pelvis 06/24/2024 Technique: IV contrast: None Oral contrast: None. Technical comments: Standard technique with sagittal and coronal reconstructions. Dose reduction: This CT exam was performed using dose lowering techniques, which may include, but is not limited to, dose reduction technique, automated exposure control, and/or the use of iterative reconstruction, in accordance with ALARA (As Low As Reasonably Achievable)/Image Gently principle. Findings: LOWER CHEST Heart is normal in size.The visualized portion of the lung bases are clear.No pleural or pericardial effusions. UPPER ABDOMEN Postsurgical changes of the stomach.. Periumbilical fat-containing hernia. Liver and bile ducts: The liver is normal in both size and contour.No focal liver lesion. Portal vein and hepatic veins are patent. No biliary dilatation. Gallbladder: No gallbladder wall thickening or pericholecystic fluid. Pancreas: The pancreas is intact without any peripancreatic inflammation. Spleen: The spleen is normal in size. RETROPERITONEUM Adrenals: The adrenal glands are normal in appearance. Kidneys: The kidneys have normal morphology.Multiple stones within the right kidney. There is an approximately 7 mm stone in the proximal right ureter with inflammatory stranding and accompanying mild hydroureter. Mild hydronephrosis of the right kidney. Lymph nodes: No lymphadenopathy in the abdomen or pelvis. BOWEL AND PERITONEUM Stomach:Normal morphology of the stomach. Bowel: Normal in caliber and wall thickness. Appendix:The appendix is normal. Free air or fluid: None. VASCULATURE The abdominal aorta is normal in caliber.There is minimal atheromatous disease of the abdominal aorta. PELVIS Hysterectomy. Pelvic phleboliths. BONES/SOFT TISSUES No fracture or destructive osseous lesion is identified. There are mild degenerative changes throughout the visualized spine. Procedure Note Abelardo Mcallister MD - 02/06/[address] [address] Examination: CT abdomen and pelvis without IV contrast. Clinical Information: Hematuria, right-sided flank pain Comparison: CT abdomen and pelvis 06/24/2024 Technique: IV contrast: None Oral contrast: None. Technical comments: Standard technique with sagittal and coronalreconstructions. Dose reduction: This CT exam was performed using dose lowering techniques,which may include, but is not limited to, dose reduction technique,automated exposure control, and/or the use of iterative reconstruction, inaccordance with ALARA (As Low As Reasonably Achievable)/Image Gentlyprinciple. Findings: LOWER CHEST Heart is normal in size.The visualized portion of the lung bases areclear.No pleural or pericardial effusions. UPPER ABDOMEN Postsurgical changes of the stomach.. Periumbilical fat-containinghernia. Liver and bile ducts: The liver is normal in both size and contour.Nofocal liver lesion. Portal vein and hepatic veins are patent. No biliarydilatation. Gallbladder: No gallbladder wall thickening or pericholecystic fluid. Pancreas: The pancreas is intact without any peripancreaticinflammation. Spleen: The spleen is normal in size. RETROPERITONEUM Adrenals: The adrenal glands are normal in appearance. Kidneys: The kidneys have normal morphology.Multiple stones within theright kidney. There is an approximately 7 mm stone in the proximal rightureter with inflammatory stranding and accompanying mild hydroureter. Mildhydronephrosis of the right kidney. Lymph nodes: No lymphadenopathy in the abdomen or pelvis. BOWEL AND PERITONEUM Stomach:Normal morphology of the stomach. Bowel: Normal in caliber and wall thickness. Appendix:The appendix is normal. Free air or fluid: None. VASCULATURE The abdominal aorta is normal in caliber.There is minimal atheromatousdisease of the abdominal aorta. PELVIS Hysterectomy. Pelvic phleboliths. BONES/SOFT TISSUES No fracture or destructive osseous lesion is identified. There are milddegenerative changes throughout the visualized spine. Impression: 1. Approximately 7 mm stone in the proximal right ureter with inflammatorystranding and accompanying mild hydroureter. 2. Mild hydronephrosis of the right kidney. 3. Multiple calculi within the right kidney Preliminary: Estrellita Aviles MD02/06/2025 9:41 PM The attending radiologist has reviewed the image(s) and agrees with thecontent of this report. Referred By: AICHA CUELLO Interpreted By: Estrellita Aviles MD, 02/06/2025 9:30 PM us Aicha Cuello MD CT Final Result * URINE BACTERIA CULTURE (01/22/2025 1:40 PM CDT) SPEC DESCRIPTION URINE CLEAN CATCH 01/22/2025 1:[address] [facility] SPECIAL REQUESTS NO SPECIAL REQUEST 01/22/2025 1:[address] [facility] CULTURE RESULT NO GROWTH (< OR = 1,000 CFU/ML) 01/24/2025 5:[address] [facility] URINE SPECIMEN OBTAINED BY CLEAN CATCH PROCEDURE / Unknown 01/22/2025 1:40 PM CDT 01/22/2025 9:03 PM CDT us Aicha Cuello MD MICROBIOLOGY - GENERAL ORDERABLE S Final Result Performing Organization Address [facility] Co de Phone Number [facility] [address] [place] [address], [id number] * A1C (BACK OFFICE) (01/22/2025) HGB A1C 5.9 % [facility] 01/22/2025 us Aicha Cuello MD LABORATORY Final Result Performing Organization Address [facility] Co de Phone Number [facility] [address] [place] [address], [place] [phone] * COLLECT.CAPILLARY (FNGR,HEEL,EAR) (01/22/2025) us Aicha Cuello MD PROCEDURES-UNRESULTED Final Resu lt Performing Organization Address [facility] Co de Phone Number [facility] * (ABNORMAL) URINALYSIS AUTO DIP (01/22/2025) COLOR (U) YELLOW YELLOW [facility] TRANSPARENCY CLOUDY(A) CLEAR CANDY TRINH GLUCOSE (U) NEGATIVE NEGATIVE MG/DL [facility] BILIRUBIN (U) 1+ (SMALL)(A) NEGATIVE [facility] KETONES MG/DL (U) 5 (TRACE)(A) NEGATIVE MG/DL [facility] SPECIFIC GRAVITY (U) 1.025 1.001 - 1.035 [facility] BLOOD (U) LARGE (3+ Hemolyzed, About 250 rbc/uL)(A) NEGATIVE [facility] DOUGL[facility] U PH 6.5 5.0 - 9.0 [facility] PROTEIN (U) 1+ (30)(A) NEGATIVE mg/dL [facility] UROBILINOGEN 2.0(A) 0.2 - 1.0 EU/dL = mg/dL [facility] NITRITES NEGATIVE NEGATIVE MG/DL [facility] LEUKOCYTES (U) NEGATIVE NEGATIVE [facility] AMADO URINE SPECIMEN OBTAINED BY CLEAN CATCH PROCEDURE / Unknown 01/22/2025 us Aicha Cuello MD URINE ORDERABLES Final Result [facility] [address] [place] [address], * LIPID PANEL (09/06/2024 7:28 AM JOB ESTIMATOR) CHOLESTEROL 144 <200 mg/dL [facility] HDL 67 > OR = 50 mg/dL [facility] TRIGLYCERIDES 85 <150 mg/dL [facility] LDL (CALCULATED) 60 mg/dL (calc) [facility] Comment: Reference range: <100 Desirable range <100 mg/dL for primary prevention; <70 mg/dL for patients with CHD or diabetic patients with > or = 2 CHD risk factors. LDL-C is now calculated using the Zuleyka calculation, which is a validated novel method providing better accuracy than the Friedewald equation in the estimation of LDL-C. Mark ROGERS et al. SULEMA. 2013;310(19): 3535-9306 (http://education.TreedomCertusNet/faq/FDU529) CHOL/HDL RATIO 2.1 <5.0 (calc) [facility] NON HDL CHOLESTEROL 77 <130 mg/dL (calc) [facility] Comment: For patients with diabetes plus 1 major ASCVD risk factor, treating to a non-HDL-C goal of <100 mg/dL (LDL-C of <70 mg/dL) is considered a therapeutic option. 09/06/2024 7:28 AM JOB ESTIMATOR 09/06/2024 7:30 AM JOB ESTIMATOR Narrative RUFINA ELLIOTT - 09/07/2024 7:42 AM JOB ESTIMATOR FASTING:YES FASTING: YES Resulting Agency Comment Performing Organization Information: Site ID: [id number] Name: Rufina Donis Address: [address] [address] Director: Chema Scott MD us Aicha Cuello MD LABORATORY Final Result RUFINA ELLIOTT [facility] [address] [place] [address], [place] * MG SCREENING W LISA EARL DIGI (04/17/2023 4:27 PM CDT) Anatomical Region Laterality Modality Breast Bilateral Mammography 04/18/2023 6:52 AM CDT Narrative 04/18/2023 6:53 AM CDT Examination: Digital bilateral screening mammogram with 3D Tomosynthesis Exam Date/Time: 04/17/2023 3:54 PM Reason For Exam: SCREENING No prior breast procedures. No personal or family history of breast cancer. No current complaints. Comparison: Mammograms from 12/15/2020 10/11/2018 10/29/2015 Technique: Digital screening mammography of both breasts was performed in addition to 3-D Tomosynthesis technique. This study was read with the assistance of a computer-aided detection system. Tissue density: There are scattered areas of fibroglandular density. Findings: Benign axillary lymph nodes bilaterally. Stable intramammary lymph node in the central right breast. Parenchymal pattern bilaterally unchanged from prior studies. There is no new focal asymmetry, dominant mass lesion, area of skin thickening, or cluster of suspicious appearing calcifications in either breast to suggest malignancy. ===== IMPRESSION: ===== 1. Stable mammographic appearance with no new findings to suggest malignancy in either breast. Assessment: ACR BI-RADS 2 - BENIGN FINDING(S) Recommendation: 1:Routine Screening Bilateral Comments: Ordered By: AICHA CUELLO Interpreted By: Alexis Damon MD, 04/18/2023 6:52 AM us Aicha Cuello MD MAMMO Final Result from Last 3 Months or Most Recently Relevant to Health Maintenance Insurance [facility] Care Teams Keyboarding Clerk Relationship Specialty Start Date End Date Aicha Cuello MD [address] [place] [phone] PCP - General FAMILY PRACTICE 08/21/18
--- OUTSIDE RECORDS SUMMARY | 2025-03-06 00:50 | XMS_ITS | Encounter Summary ---
Author Organization [facility] Address [address] [place] [address] Care Team Providers Care Bronze Chaser Name Role Phone Aicha Cuello MD Primary Care Provider [phone] Encounter Details Date Type Department Care Team (Late Contact Info) Description 07/25/2024 MyChart Message Enc [address] [address] Aicha Cuello MD [address] [place] [address] Back pain Social History Tobacco Use Types Packs/Day Years Used Date Smoking Tobacco: Never Smokeless Tobacco: Never Alcohol Use Standard Drinks/Week Comments Not Currently 0 (1 standard drink = 0.6 oz pur e alcohol) PHQ-2 Answer Date Recorded Patient Health Questionnaire-2 Score 0 06/30/2024 Comments No Sex and Gender Information Value Date Recorded Sex Assigned at Female 10/10/2024 3:28 PM RESOURCE RECOVERY SPECIALIST Legal Sex Female 8:27 PM CDT Gender Identity Female 11/06/2024 2:42 PM RESOURCE RECOVERY SPECIALIST Sexual Orientation Not on file documented as of this encounter Plan of Treatment Upcoming Encounters Date Type Department Care Team (Late Contact Info) Description 04/27/2025 2:40 PM CDT Office Visit [address] [address] Aicha Cuello MD [address] [place] [address] documented as of this encounter Visit Diagnoses Not on filedocumented in this encounter Additional Health Concerns Assessment Noted Time PHQ-9 Depression Total Score: 1 05/14/20 24 9:45 AM CDT documented as of this encounter Care Teams Bronze Chaser Relationship Specialty Start Date End Date Aicha Cuello MD [address] [place] [address] PCP - General FAMILY PRACTICE 08/21/18 documented as of this encounter
--- OUTSIDE RECORDS SUMMARY | 2025-03-06 00:50 | XMS_ITS | Encounter Summary ---
Author Organization [facility] Address [address] [place] [address] Care Team Providers Care Guzzler Builder Name Role Phone Aicha Cuello MD Primary Care Provider [phone] Encounter Details Date Type Department Care Team (Late st Contact Info) Description 08/02/2021 Segwayhart Message Enc [address] [address] Aicha Cuello MD [address] [place] [address] Medication Questions Social History Tobacco Use [...] Sex Assigned at Female 10/10/2024 3:28 PM RN HOUSE SUPERVISOR Legal Sex Female 8:27 PM CDT Gender Identity Female 11/06/2024 2:42 PM RN HOUSE SUPERVISOR Sexual Orientation Not on file documented as of this encounter Plan of Treatment Upcoming Encounters Date Type Department Care Team (Late Contact Info) Description 04/27/2025 2:40 PM CDT Office Visit [address] [address] Aicha Cuello MD [address] [place] [address] documented as of this encounter Visit Diagnoses Not on filedocumented in this encounter Additional Health Concerns Assessment Noted Time PHQ-9 Depression Total Score: 10 01/28/ 020 11:26 AM CDT documented as of this encounter Care Teams Guzzler Builder Relationship Specialty Start Date End Date Aicha Cuello MD [address] [place] [address] PCP - General FAMILY PRACTICE 08/21/18 documented as of this encounter
--- OUTSIDE RECORDS SUMMARY | 2025-03-06 00:50 | XMS_ITS | Encounter Summary ---
Author Organization [employer] Address 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
--- OUTSIDE RECORDS SUMMARY | 2025-03-06 00:50 | XMS_ITS | Encounter Summary ---
Author Organization [facility] Address [address] [place] [address] Care Team Providers Care Legal Support Manager Name Role Phone Aicha Cuello MD Primary Care Provider [phone] Encounter Details Date Type Department Care Team (Late Contact Info) Description 11/09/2021 Settle Message Enc [address] [address] [employer], [facility] Provider appt Social History Tobacco Use Types [...] Sex Assigned at Female 10/10/2024 3:28 PM POWER SYSTEM ELECTRICAL ENGINEER Legal Sex Female 8:27 PM CDT Gender Identity Female 11/06/2024 2:42 PM POWER SYSTEM ELECTRICAL ENGINEER Sexual Orientation Not on file COVID-19 Exposure Response Date Recorded In the last 10 days, have yo u been in contact with someone who was confirmed or suspected to have Coronavirus/COVID-19? No / Unsure 11/07/2021 10:26 AM POWER SYSTEM ELECTRICAL ENGINEER documented as of this encounter Plan of Treatment Upcoming Encounters Date Type Department Care Team (Late Contact Info) Description 04/27/2025 2:40 PM CDT Office Visit [address] [address] Aicha Cuello MD [address] [place] [address] documented as of this encounter Visit Diagnoses Not on filedocumented in this encounter Additional Health Concerns Assessment Noted Time PHQ-9 Depression Total Score: 3 11/07/19 22 10:32 AM POWER SYSTEM ELECTRICAL ENGINEER documented as of this encounter Care Teams Legal Support Manager Relationship Specialty Start Date End Date Aicha Cuello MD [address] [place] [address] PCP - General FAMILY PRACTICE 08/21/18 documented as of this encounter
--- OUTSIDE RECORDS SUMMARY | 2025-03-06 00:50 | XMS_ITS | Encounter Summary ---
Author Organization [facility] Address [address] [place] [address] Care Team Providers Care Piano Tuner Name Role Phone Sari Cali MD Primary Care Provider Maryam Hilario MD Unavailable [phone] Reason for Visit * Diagnostic Imaging (Routine) - Closed Specialty Diagnoses / Procedures Referred By Renee pablo Referred To Contact Procedures Breast Imaging Screening Outside Reference Referral, Self Referral ID Status Reason Start Date Expiration Date Visits Re quested Visits Authorized [id number] Closed 01/12/2022 02/11/2023 1 1 Encounter Details Date Type Department Care Team (Late st Contact Info) Description 10/11/2018 Hospital Encounter [facility] [place] [address] Social History Tobacco Use Types Packs/Day Years [...] on file Legal Sex Female 10:50 PM ELECTRONICS TESTER Gender Identity Female 10/15/2018 11:21 AM ELECTRONICS TESTER Sexual Orientation Not on file Occupation Industry Job Start Date Job End Date halfway Not on file Not on file Not [...] SCREENING OUTSIDE REFERENCE Routine 10/11/2018 12:00 AM ELECTRONICS TESTER documented in this encounter Results * Breast Imaging Screening Outside Reference (10/11/2018 12:00 AM ELECTRONICS TESTER) Impressions RAD_MAMMO_[facility] - 01/12/2022 10:01 AM CDT These images are for Reference purposes only and have not been reviewed by [facility]. There will be no report generated by a [facility] Radiologist. Narrative RAD_MAMMO_[facility] - 01/12/2022 10:01 AM CDT EXAMINATION: Images For Reference Purposes Only us Self Referral IMG MAMMO PROCEDURES Final Resul t RAD_MAMMO[facility] documented in this encounter Visit Diagnoses Not on filedocumented in this encounter Additional Health Concerns Infection Onset Date Last Indicated Resolved Time MRSA Comment:Germ watcher auto flagging 07/24/2013 07/24/201305/04 5:00 AM CDT documented as of this encounter Care Teams Piano Tuner Relationship Specialty Start Date End Date Sari Cali MD [address] [facility] [address] [place] [address] PCP - General 01/15/17 10/14/18 Maryam Muller MD [address] [facility] [address] [place] [address] Internal Medicine 02/14/17 10/14/18 documented as of this encounter
--- OUTSIDE RECORDS SUMMARY | 2025-03-06 00:50 | XMS_ITS | Encounter Summary ---
Author Organization [employer] Address [address] [place] [address] Care Team Providers Care Product Safety Administrator Name Role Phone Aicha Cuello MD Primary Care Provider Encounter Details Date Type Department Care Team (Late st Contact Info) Description 12/08/1998 Outpatient Historical HIS [facility] Ciara Velasco MD Social History Tobacco Use Types Packs/Day Years Used Date Smoking Tobacco: Never Assessed Comments Unknown Sex and Gender Information Value Date Recorded Sex Assigned at Not on file Legal Sex Female 4:21 AM MEDICAL ASSISTANT INTERNAL MEDICINE Gender Identity Not on file Sexual Orientation Not on file documented as of this encounter Plan of Treatment Not on file documented as of this encounter Visit Diagnoses Not on filedocumented in this encounter Care Teams Product Safety Administrator Relationship Specialty Start Date End Date Aicha Cuello MD [address] [place] [phone] PCP - General Family Practice 09/12/19 documented as of this encounter
--- OUTSIDE RECORDS SUMMARY | 2025-03-06 00:50 | XMS_ITS | Encounter Summary ---
Author Organization [facility] Address [address] [place] [address] Care Team Providers Care Oil Well Engineer Name Role Phone Aicha Cuello MD Primary Care Provider Encounter Details Date Type Department Care Team (Late st Contact Info) Description 03/03/2025 External Device Data [facility] ABSTRACTION Provider, Abstract NO ADDRESS ON FILE Social History Tobacco Use Types Packs/Day Years Used Date Smoking Tobacco: Never Smokeless Tobacco: Never Alcohol Use Standard Drinks/Week Comments Never 0 (1 standard drink = 0.6 oz pur e alcohol) Comments No Sex and Gender Information Value Date Recorded Sex Assigned at Not on file Legal Sex Female 4:21 AM HOME HOSPICE AIDE Gender Identity Not on file Sexual Orientation Not on file documented as of this encounter Plan of Treatment Not on file documented as of this encounter Visit Diagnoses Not on filedocumented in this encounter Care Teams Oil Well Engineer Relationship Specialty Start Date End Date Aicha Cuello MD [facility] [place] [address] PCP - General Family Practice 09/12/19 documented as of this encounter
--- OUTSIDE RECORDS SUMMARY | 2025-03-06 00:50 | XMS_ITS | Encounter Summary ---
Author Organization [employer] Address 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
--- OUTSIDE RECORDS SUMMARY | 2025-03-06 00:50 | XMS_ITS | Encounter Summary ---
Author Organization [employer] Address [address] [place] [address] Care Team Providers Care Pediatric Care Coordinator Name Role Phone Aicha Cuello MD Primary Care Provider Encounter Details Date Type Department Care Team (Late st Contact Info) Description 04/13/2000 Outpatient Historical HIS [facility] Ciara Velasco MD Social History Tobacco Use Types Packs/Day Years Used Date Smoking Tobacco: Never Assessed Comments Unknown Sex and Gender Information Value Date Recorded Sex Assigned at Not on file Legal Sex Female 4:21 AM FEATHER STITCHER Gender Identity Not on file Sexual Orientation Not on file documented as of this encounter Plan of Treatment Not on file documented as of this encounter Visit Diagnoses Not on filedocumented in this encounter Care Teams Pediatric Care Coordinator Relationship Specialty Start Date End Date Aicha Cuello MD [address] [place] [address] PCP - General Family Practice 09/12/19 documented as of this encounter
--- OUTSIDE RECORDS SUMMARY | 2025-03-06 00:50 | XMS_ITS | Encounter Summary ---
Author Organization [employer] Address 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
--- OUTSIDE RECORDS SUMMARY | 2025-03-06 00:50 | XMS_ITS | Clinical Summary ---
Author Organization [facility] Address [address] [place] [address] Care Team Providers Care Checkman Name Role Phone Unavailable Primary Care Provider [...]
--- OUTSIDE RECORDS SUMMARY | 2025-03-06 00:50 | XMS_ITS | Encounter Summary ---
Author Organization [facility] Address [address] [place] [address] Care Team Providers Care Repair Welder Name Role Phone Aicha Cuello MD Primary Care Provider [phone] Encounter Details Date Type Department Care Team (Late st Contact Info) Description 01/22/2025 Results Follow-Up [facility] Family Medicine [facility] [address] [place] [address] [place] [address] [place] [id number] A1C (BACK OFFICE) Social History Tobacco Use Types Packs/Day Years Used Date Smoking Tobacco: Never Smokeless Tobacco: Never Alcohol Use Standard Drinks/Week Comments Not Currently 0 (1 standard drink = 0.6 oz pur e alcohol) PHQ-2 Answer Date Recorded Patient Health Questionnaire-2 Score 0 01/22/2025 Comments No Sex and Gender Information Value Date Recorded Sex Assigned at Female 10/10/2024 3:28 PM GEOLOGICAL AIDE Legal Sex Female 8:27 PM CDT Gender Identity Female 11/06/2024 2:42 PM GEOLOGICAL AIDE Sexual Orientation Not on file documented as [...] 2:40 PM CDT Office Visit [facility] Family [facility] [address] [place] [address] Aicha Cuello MD [address] [place] [address] documented as of this encounter Visit Diagnoses Not on filedocumented in this encounter Additional Health Concerns Assessment Noted Time PHQ-9 Depression Total Score: 4 01/23/20 25 8:09 AM CDT documented as of this encounter Care Teams Repair Welder Relationship Specialty Start Date End Date Aicha Cuello MD [address] [place] [address] PCP - General FAMILY PRACTICE 08/21/18 documented as of this encounter
--- OUTSIDE RECORDS SUMMARY | 2025-03-06 00:50 | XMS_ITS | Encounter Summary ---
Author Organization [facility] Address [address] [place] [address] Care Team Providers Care Marshmallow Machine Worker Name Role Phone Jame Call MD Primary Care Provider [phone] Reason for Referral * Imaging (Urgent) - Closed Specialty Diagnoses / Procedures Referred By Contac t Referred To Contact RADIOLOGY Diagnoses Gross hematuria Flank pain Procedures CT ABD+PEL WO CON Jame Call MD [facility] [place] [address] Phone: tel: fax: Referral ID Status Reason Start Date Expiration Date Visits Re quested Visits Authorized [id number] Closed 01/30/2025 01/30/2026 1 1 Encounter Details Date Type Department Care Team (Late st Contact Info) Description 01/30/2025 Results Follow-Up [facility] Family Medicine [address] [phone] Jame Call MD [address] [place] [phone] A1C (BACK OFFICE), URINALYSIS AUTO DIP, URINE BACTERIA CULTURE Social History Tobacco Use Types Packs/Day Years Used Date Smoking Tobacco: Never Smokeless Tobacco: Never Alcohol Use Standard Drinks/Week Comments Not Currently 0 (1 standard drink = 0.6 oz pur e alcohol) PHQ-2 Answer Date Recorded Patient Health Questionnaire-2 Score 0 01/22/2025 Comments No Sex and Gender Information Value Date Recorded Sex Assigned at Female 10/10/2024 3:28 PM SPECIAL EDUCATION ADMINISTRATOR Legal Sex Female 8:27 PM CDT Gender Identity Female 11/06/2024 2:42 PM SPECIAL EDUCATION ADMINISTRATOR Sexual Orientation Not on file documented as of this encounter Progress Notes * Jame Call MD - 01/30/2025 5:48 AM CDT Armida Davis, Your most recent UA was positive for blood, but negative for bacteria. Your urine culture showed nosigns of a UTI. I am concerned for kidney stones for you and have ordered some imaging (CT) to assess you further. Please have this imaging done as soon as possible and schedule a video visit to discuss the results. Please let me know if you would like some flomax to help with symptoms. Any questions or concerns please feel free to call the office at [phone]. Have a blessed day, ~Dr Call documented in this encounter Plan of Treatment Upcoming Encounters Date Type Department Care Team (Late st Contact Info) Description 04/27/2025 2:40 PM CDT Office Visit [facility] Family Medicine [facility] [address] [place] [address] Jame Call MD [address] [place] [address] documented as of this encounter Results * CT ABD+PEL WO CON (02/06/2025 [...] the content of this report. Referred By: JAME CALL Interpreted By: Estrellita Aviles MD, 02/06/2025 9:30 PM Narrative 02/06/2025 9:53 PM CDT [address] [address] Examination: CT abdomen and pelvis without IV [...] Procedure Note Abelardo Mcallister MD - 02/06/[address] [address] Examination: CT abdomen and pelvis without IV [...] with thecontent of this report. Referred By: JAME CALL Interpreted By: Estrellita Aviles MD, 02/06/2025 9:30 PM Jame Call MD CT Final Result documented in this encounter Visit Diagnoses Diagnosis Gross hematuria- Primary Flank pain Abdominal pain, unspecified site Gross hematuria Flank pain Abdominal pain, unspecified site documented in this encounter Additional Health Concerns Assessment Noted Time PHQ-9 Depression Total Score: 4 01/23/20 25 8:09 AM CDT documented as of this encounter Care Teams Marshmallow Machine Worker Relationship Specialty Start Date End Date Jame Call MD [facility] [place] [address] PCP - General FAMILY PRACTICE 08/21/18 documented as of this encounter
--- OUTSIDE RECORDS SUMMARY | 2025-03-06 00:50 | XMS_ITS | Encounter Summary ---
Author Organization [facility] Address [address] [place] [address] Care Team Providers Care Blaster Helper Name Role Phone Aicha Cuello MD Primary Care Provider [phone] Encounter Details Date Type Department Care Team (Late st Contact Info) Description 10/18/2024 MyChart Message Enc [address] [address] Aicha Cuello MD [address] [place] [address] New medication Social History Tobacco Use Types Packs/Day Years Used Date Smoking Tobacco: Never Smokeless Tobacco: Never Alcohol Use Standard Drinks/Week Comments Not Currently 0 (1 standard drink = 0.6 oz pur e alcohol) PHQ-2 Answer Date Recorded Patient Health Questionnaire-2 Score 4 10/10/2024 Comments No Sex and Gender Information Value Date Recorded Sex Assigned at Female 10/10/2024 3:28 PM DEVELOPMENT ENGINEER Legal Sex Female 8:27 PM CDT Gender Identity Female 11/06/2024 2:42 PM DEVELOPMENT ENGINEER Sexual Orientation Not on file documented as of this encounter Plan of Treatment Upcoming Encounters Date Type Department Care Team (Late Contact Info) Description 04/27/2025 2:40 PM CDT Office Visit [address] [address] Aicha Cuello MD [address] [place] [address] documented as of this encounter Visit Diagnoses Not on filedocumented in this encounter Additional Health Concerns Assessment Noted Time PHQ-9 Depression Total Score: 18 025 3:49 PM DEVELOPMENT ENGINEER documented as of this encounter Care Teams Blaster Helper Relationship Specialty Start Date End Date Aicha Cuello MD [address] [place] [address] PCP - General FAMILY PRACTICE 08/21/18 documented as of this encounter
--- OUTSIDE RECORDS SUMMARY | 2025-03-06 00:51 | XMS_ITS | Continuity of Care Document ---
Author Name [facility] Organization [facility] Care Team Providers Care Public Health Training Assistant Name Role Phone [facility] Unavailable Unavailable Problems Combined list of problems [...] Need For Vaccination Hepatitis B Inactive Condition [facility] MENORRHAGIA Active Condition [facility] visit for: screening exam for malignant neoplasm cervix Active Condition [facility] ROUTINE PELVIC EXAM Inactive Condition [facility] HYPERLIPIDEMIA Active Condition [facility] DYSMENORRHEA Active Condition [facility] visit for: administrative purpose Active Condition DoD ABNORMAL WEIGHT GAIN Active Condition DoD ankle joint pain Active Condition DoD Anxiety ([facility] [id number]) Active Condition [facility] Contraception Active Condition [facility] Diabetes Mellitus Type 2 ([facility] [id number]) Active Condition [facility] Hyperlipidemia ([facility] 54115730) Active Condition [facility] Hypothyroidism ([facility] 23273698) Active Condition [facility] NKA Active Condition [facility] Obstructive Sleep Apnea of Adult ([facility] [id number]) Active Condition [facility] Recurrent depression Active Condition [facility] THYROID GOITER Active Condition [facility] Ulnar neuropathy of right arm Active Condition [facility] Urinary Tract Infections Active Condition [facility] Diagnosis: ICD-10-CM G56.00 Carpal tunnel syndrome, unspecified upper limb Active Diagnosis [facility] Diagnosis: ICD-10-CM G56.01 Carpal tunnel syndrome, right upper limb Active Diagnosis [facility] Diagnosis: ICD-10-CM E11.9 Type 2 diabetes mellitus without complications Active Diagnosis [facility] Diagnosis: ICD-10-CM Z01.818 Encounter for other preprocedural examination Active Diagnosis [facility] Diagnosis: ICD-10-CM S44.01XA 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, right arm, init Active Diagnosis [facility] Diagnosis: ICD-10-CM Z11.52 Encounter for screening for COVID-19 Active Diagnosis [facility] Diagnosis: ICD-10-CM Z04.89 Encounter for examination and observation for oth reasons Active Diagnosis [facility] Diagnosis: ICD-10-CM F34.1 Dysthymic disorder Active Diagnosis [facility] Diagnosis: ICD-10-CM F43.20 Adjustment disorder, unspecified Active Diagnosis [facility] Medications Combined list of outpatient [...] CRUSH OR CHEW. ORAL SUSPEND ED 03/03/2026 [id number] 5 MARY,NI I 2024 90 [facility] BUPROPION HCL 300MG 24HR TAB,SA TAKE ONE TABLET BY MOUTH ONCE A DAY FOR DEPRESSI ON SWALLO W WHOLE - DO NOT CRUSH OR CHEW. ORAL DISCONT INUED 01/10/2025 [id number] 5 MARY,NI I 2023 90 [facility] BUPROPION HCL 300MG 24HR TAB,SA TAKE ONE TABLET BY MOUTH ONCE A DAY ORAL ACTIVE MARY,NI DHI 2023 [facility] buPROPion HCl XL 300 MG ORAL TB24 TAKE ONE TABLET BY MOUTH ONCE A DAY FOR DEPRESSI ON SWALLO W WHOLE - DO NOT CRUSH OR CHEW. 01/10/2025 [id number] 4 MARY ANN-MARIE 2023 [address] [facility] CHOLECALCIF COLTON (LOW DOSE VIT D) - (OTC) TAB TAKE 125 BY MOUTH ONCE A DAY ORAL ACTIVE MARYLUIZA [facility] 2023 [facility] CRESTOR (BRAND) 20 MG ORAL TAB TAKE ONE-HALF TABLET BY MOUTH EVERY EVENING FOR HIGH CHOLESTE ROL 01/10/2025 [id number] 4 MARY, [facility] 2023 [address] [facility] DOCUSATE (U/D) 100 MG ORAL CAP TAKE ONE CAPSULE BY MOUTH TWICE DAILY NEEDED FOR SOFTENIN G STOOL HOLD FOR LOOSE STOOL/DI ARRHEA. 01/10/2025 [id number] 4 MARY, [facility] 2023 [address] [facility] DOCUSATE NA 100MG CAP TAKE ONE CAPSULE BY MOUTH TWICE DAILY NEEDED FOR SOFTENIN G STOOL HOLD FOR LOOSE STOOL/DI ARRHEA. ORAL 01/10/2025 [id number] 4 MARYNI [facility] 2023 200 [facility] EPINEPHRINE (EQV-ADRENA CLICK) 0.3MG/0.3ML INJECTOR INJECT 1 PEN (0.3MG/0 .3ML) INTRAMUS CULARLY ONE-TIME FOR ALLERGIC REACTION INTRAM USCULA R 01/10/2025 [id number] 5 LUIZA HERNANDEZ [facility] 2023 2 [facility] Epinephrine 1mg/mL, Injection, 0.3 mL Auto-Inject or INJECT 1 PEN (0.3MG/0 .3ML) INTRAMUS CULARLY ONE-TIME FOR ALLERGIC REACTION 01/10/2025 [id number] 4 MARY, [facility] 2023 [address] [facility] ezetimibe (U/D) 10 MG ORAL TAB TAKE ONE TABLET BY MOUTH ONCE A DAY FOR HIGH CHOLESTE ROL 01/10/2025 [id number] 4 MARY, [facility] 2023 [address] [facility] EZETIMIBE 10MG TAB TAKE ONE TABLET BY MOUTH ONCE A DAY FOR HIGH CHOLESTE ROL ORAL 01/10/2025 [id number] 5 MARY,NI I [address] [facility] EZETIMIBE 10MG TAB TAKE ONE TABLET BY MOUTH ONCE A DAY ORAL ACTIVE MARY,NI DHI [address] [facility] FEXOFENADIN E HCL 180MG TAB TAKE ONE TABLET BY MOUTH EACH MORNING NEEDED FOR ALLERGIE S ORAL 04/09/2024 [id number] 4 MARY,NI I [address] [facility] HYDROCODONE 7.5MG/ACETA MINOPHEN 325MG TAB TAKE 1 TABLET BY MOUTH EVERY 6 HOURS NEEDED FOR POST-OPE RATIVE PAIN CAUTION: DO NOT EXCEED 4000MG PER DAY ACETAMIN OPHEN (APAP) FROM ALL MEDS. ORAL 01/23/2025 [id number] 5 FARIHA RISTOPHER D 2024 20 [facility] Ibuprofen (Motrin) Tablet 800 mg Oral TAKE ONE TABLET BY MOUTH TWICE DAILY NEEDED FOR PAIN TAKE WITH FOOD 02/24/2024 [id number] 4 ANN-MARIE HERNANDEZ 2023 [address] [facility] IBUPROFEN 800MG TAB TAKE ONE TABLET BY MOUTH TWICE DAILY NEEDED FOR PAIN TAKE WITH FOOD ORAL 02/24/2024 [id number] 4 MARY,NI I [address] [facility] NAPROXEN 500MG TAB TAKE ONE TABLET BY MOUTH TWICE A DAY FOR PAIN TAKE WITH FOOD. ORAL 11/27/2024 [id number] 5 MARY,NI I [address] [facility] ROSUVASTATI N CA 20MG TAB TAKE ONE-HALF TABLET BY MOUTH EVERY EVENING FOR HIGH CHOLESTE ROL ORAL 01/10/2025 [id number] 4 MARY,NI DHI [address] [facility] ROSUVASTATI N CA 20MG TAB TAKE ONE-HALF TABLET BY MOUTH EVERY EVENING ORAL ACTIVE LUIZA HERNANDEZ [facility] [address] [facility] SEMAGLUTIDE 0.25MG/0.37 5ML INJ,SOLN,PE N,3ML INJECT 0.5MG UNDER THE SKIN EVERY WEEK SUBCUT ANEOUS ACTIVE MARYNI [facility] [address] [facility] Fexofenadin e Hydrochlori de (Telfast) Tablet 180 mg Oral TAKE ONE TABLET BY MOUTH EACH MORNING NEEDED FOR ALLERGIE S 04/09/2024 [id number] MARY, ANN-MARIE 2023 90 [facility] Div[facility] n Allergies, Adverse Reactions, Alerts Combined list of allergies from Department of Defense and Veterans Affairs facilities. It does not include entries that were removed or entered in error. Substance Category Reaction Severity Reaction type Status Date Reported Comments Source No Known Allergies Drug allergy (disorder) active 04/30/2018 [employer] Damien EVANS [place] Immunizations Combined list of available immunizations from the Department of Defense and Veterans Affairs facilities. Immunization Series Date Given Administered By Site Reaction Lot Number CVX Code Drug Goodwill Ambassador Status Comments Source varicella virus vaccine 2 2016 [id number] Merck (MSD) complet ed varicella virus vaccine DoD Influenza, seasonal, injectable, preservative free 1 2016 [id number] Seqirus (SEQ) comple t ed Influenza , seasonal, injectabl e, preservat mary lou free DoD Influenza, seasonal, injectable, preservative free 1 2015 [id number] 140 [employer] (SEQ) comple t ed Influenza , seasonal, injectabl e, preservat mary lou free DoD measles, mumps and rubella virus vaccine 2 2014 [id number] Merck (MSD) complet ed measles, mumps and rubella virus vaccine DoD varicella virus vaccine 1 2014 [id number] 21 Merck (MSD) complet ed varicella virus vaccine DoD Influenza, seasonal, injectable 1 2014 [id number] 141 Novartis Rapid Pathogen Screeningtica [employer] Kenzie. (NOV) complet ed Influenza , seasonal, injectabl e DoD Influenza, injectable, quadrivalent, preservative free 1 2013 [id number] [employer] (SKB) complet ed Influenza , injectabl e, quadrival ent, preservat mary lou free DoD Influenza, seasonal, injectable, preservative free 1 2012 [id number] 140 Novartis Rapid Pathogen Screeningtica l Kenzie. (NOV) complet ed Influenza , seasonal, injectabl e, preservat mary lou free DoD Influenza, seasonal, injectable, preservative free 1 2011 [id number] 140 [facility] [employer] (CSL) complet ed Influenza , seasonal, injectabl e, preservat mary lou free DoD influenza virus vaccine, unspecified formulation 1 2010 [id number] 88 Novartis Rapid Pathogen Screeningtica l Kenzie. (NOV) complet ed influenza virus vaccine, unspecifi ed formulati on DoD hepatitis B vaccine, adult dosage 3 2010 SABRANICA LIM [id number] 43 [facility] (B) complet ed hepatitis B vaccine, adult dosage DoD influenza virus vaccine, live, attenuated, for intranasal use 1 2009 [id number] 111 fflick. ([facility]) complet ed influenza virus vaccine, live, attenuate d, for intranasa l use DoD hepatitis B vaccine, adult dosage 2 2009 JARET THOMAS [id number] 43 [facility] (B) complet ed hepatitis B vaccine, adult dosage DoD hepatitis B vaccine, adult dosage 1 2009 [id number] 43 [facility] ([facility]) complet ed hepatitis B vaccine, adult dosage DoD tetanus toxoid, reduced diphtheria toxoid, and acellular pertu is vaccine, adsorbed 1 2009 [id number] 115 [facility] ([facility]) complet ed tetanus toxoid, reduced diphtheri a toxoid, and acellular pertussis vaccine, adsorbed DoD Novel influenza-H1N 1-09, injectable 1 2009 [id number] 127 Novartis Rapid Pathogen Scre[employer] Ken[place]. (NOV) complet ed Novel influenza -I1V1-34, injectabl e DoD influenza virus vaccine, split virus (incl. purified surface antigen)-reti red CODE 1 2008 [id number] 15 [facility] [employer] (CSL) complet ed influenza virus vaccine, split virus (incl. purified surface antigen)- retired CODE DoD influenza virus vaccine, split virus (incl. purified surface antigen)-reti red CODE 1 2007 [id number] [facility]) complet ed influenza virus vaccine, split virus (incl. purified surface antigen)- retired CODE DoD influenza virus vaccine, split virus (incl. purified surface antigen)-reti red CODE 1 2006 [id number] [address] [facility]) complet ed influenza virus vaccine, split virus (incl. purified surface antigen)- retired CODE DoD influenza virus vaccine, split virus (incl. purified surface antigen)-reti red CODE 1 2006 [id number] 15 [facility] ([facility]) complet ed influenza virus vaccine, split virus (incl. purified surface antigen)- retired CODE DoD hepatitis A vaccine, adult dosage 2 2003 [id number] 52 [facility] ([facility]) complet ed hepatitis A vaccine, adult dosage [...] CODE 1 2003 UNK 15 Sanofi Pasteur ([facility]) complet ed influenza virus vaccine, split virus [...] ed trivalent polioviru s vaccine, live, oral [facility] measles and rubella virus vaccine 1 1990 [...] adenoviru s vaccine, type 4, live, oral [facility] adenovirus vaccine, type 7, live, oral 1 [...] Specimen Type: BLOOD Comment: Test Performed by: [id number] Meter #: [id number] Ordering Provider: BG HERNANDEZ I Report Released Date/Time: Dec 24, 2024 11:01 AM Reporting Lab: [facility] [address] [address] Performing Lab: [facility] [address] [address] [facility] COVID-19 DIAGNOST IC (FLU/RSV )(STL) INFLUENZA [...] Dec 23, 2024 02:34 PM Reporting Lab: [place] [address] [address] [facility] [address] Performing Lab: [place] [address] [address] [phone] [place] [address] COVID-19 DIAGNOST IC (FLU/RSV )(STL) INFLUENZA B [...] Dec 23, 2024 02:34 PM Reporting Lab: [place] [address] [address] [facility] [address] Performing Lab: [place] [address] [address] [address] [facility] COVID-19 DIAGNOST IC (FLU/RSV )(STL) SARS-COV-2 (COVID-19) [...] Dec 23, 2024 02:34 PM Reporting Lab: [facility] [address] [address] Performing Lab: [facility] [address] [address] [facility] COVID-19 DIAGNOST IC (FLU/RSV )([facility]) RESPIRATOR Y SYNCYTIAL VIRUS RNA [PRESENCE] [...] Dec 23, 2024 02:34 PM Reporting Lab: [facility] [address] [address] Performing Lab: [facility] [address] [address] [facility] CBC LEUKOCYTES [#/VOLUME] IN BLOOD BY AUTOMATED COUNT 5.5 10*3/uL 3.6 - 11.2 12/16 Specimen Type: BLOOD No comment entered. Ordering Provider: PRATIBHA FRIED Report Released Date/Time: Nov 19, 2024 08:50 AM Reporting Lab: [facility] [address] [address] Performing Lab: [place] [address] [address] [address] [facility] CBC ERYTHROCYT ES [#/VOLUME] IN BLOOD BY AUTOMATED COUNT 4.07 10*6/uL 3.60 - 5.00 12/16 Specimen Type: BLOOD No comment entered. Ordering Provider: PRATIBHA FRIED Report Released Date/Time: Nov 19, 2024 08:50 AM Reporting Lab: [address] [address] Performing Lab: [address] [phone] [place] [address] CBC HEMOGLOBIN [MASS/VOLU ME] IN BLOOD 11.4 g/dL 11.0 - 14.9 12/16 Specimen Type: BLOOD No comment entered. Ordering Provider: PRATIBHA FRIED Report Released Date/Time: Nov 19, 2024 08:50 AM Reporting Lab: [address] [address] Performing Lab: [address] [phone] [place] [address] CBC HEMATOCRIT [VOLUME FRACTION] OF BLOOD 34.6 32.6 - 43.4 12/16 Specimen Type: BLOOD No comment entered. Ordering Provider: PRATIBHA FRIED Report Released Date/Time: Nov 19, 2024 08:50 AM Reporting Lab: [address] [address] Performing Lab: [phone] [place] [address] CBC MCV [ENTITIC VOLUME] BY AUTOMATED COUNT 85.0 fL 80.0 - 100.0 12/16 Specimen Type: BLOOD No comment entered. Ordering Provider: PRATIBHA FRIED Report Released Date/Time: Nov 19, 2024 08:50 AM Reporting Lab: [address] [address] Performing Lab: [facility] [address] [address] [facility] CBC MCH [ENTITIC MASS] BY AUTOMATED COUNT 28.0 pg 27.0 - 34.0 12/16 Specimen Type: BLOOD No comment entered. Ordering Provider: PRATIBHA FRIED Report Released Date/Time: Nov 19, 2024 08:50 AM Reporting Lab: [address] [address] Performing Lab: [address] [address] [facility] CBC MCHC [MASS/VOLU ME] BY AUTOMATED COUNT 32.9 g/dL 33.0 - 36.0 12/16 L Specimen Type: BLOOD No comment entered. Ordering Provider: PRATIBHA FRIED Report Released Date/Time: Nov 19, 2024 08:50 AM Reporting Lab: [place] [address] [address] [address] Performing Lab: [address] [address] [facility] CBC PLATELETS [#/VOLUME] IN BLOOD BY AUTOMATED COUNT 274 10*3/uL 150 - 400 12/16 Specimen Type: BLOOD No comment entered. Ordering Provider: PRATIBHA FRIED Report Released Date/Time: Nov 19, 2024 08:50 AM Reporting Lab: [place] [address] [address] [address] Performing Lab: [address] [address] [facility] CBC PLATELET MEAN VOLUME [ENTITIC VOLUME] IN BLOOD BY AUTOMATED COUNT 9.2 fL 7.5 - 11.2 12/16 Specimen Type: BLOOD No comment entered. Ordering Provider: PRATIBHA FRIED Report Released Date/Time: Nov 19, 2024 08:50 AM Reporting Lab: [address] [place] [address] Performing Lab: [facility] [address] [address] [facility] CBC ERYTHROCYT E DISTRIBUTI ON WIDTH [RATIO] BY AUTOMATED COUNT 12.9 11.8 - 15.1 12/16 Specimen Type: BLOOD No comment entered. Ordering Provider: PRATIBHA FRIED Report Released Date/Time: Nov 19, 2024 08:50 AM Reporting Lab: [facility] [address] [address] Performing Lab: [facility] [address] [address] [facility] CBC LYMPHOCYTE S/100 LEUKOCYTES IN BLOOD BY AUTOMATED COUNT 44 12/16 Specimen Type: BLOOD No comment entered. Ordering Provider: PRATIBHA FRIED Report Released Date/Time: Nov 19, 2024 08:50 AM Reporting Lab: [facility] [address] [facility] [address] Performing Lab: [facility] [address] [address] [facility] CBC MONOCYTES/ 100 LEUKOCYTES IN BLOOD BY AUTOMATED COUNT 7 12/16 Specimen Type: BLOOD No comment entered. Ordering Provider: PRATIBHA FRIED Report Released Date/Time: Nov 19, 2024 08:50 AM Reporting Lab: [facility] [address] [address] Performing Lab: [facility] [address] [address] [facility] CBC NEUTROPHIL S/100 LEUKOCYTES IN BLOOD BY AUTOMATED COUNT 46 12/16 Specimen Type: BLOOD No comment entered. Ordering Provider: PRATIBHA FRIED Report Released Date/Time: Nov 19, 2024 08:50 AM Reporting Lab: [facility] [address] [address] Performing Lab: [facility] [address] [facility] [address] [facility] CBC EOSINOPHIL S/100 LEUKOCYTES IN BLOOD BY AUTOMATED COUNT 2 12/16 Specimen Type: BLOOD No comment entered. Ordering Provider: PRATIBHA FRIED Report Released Date/Time: Nov 19, 2024 08:50 AM Reporting Lab: [facility] [address] [address] Performing Lab: [facility] [address] [place] [address] [facility] CBC BASOPHILS/ 100 LEUKOCYTES IN BLOOD BY AUTOMATED COUNT 1 12/16 Specimen Type: BLOOD No comment entered. Ordering Provider: PRATIBHA FRIED Report Released Date/Time: Nov 19, 2024 08:50 AM Reporting Lab: [address] [address] Performing Lab: [address] [address] [facility] CBC LYMPHOCYTE S [#/VOLUME] IN BLOOD BY AUTOMATED COUNT 2.40 10*3/uL 0.77 - 4.50 12/16 Specimen Type: BLOOD No comment entered. Ordering Provider: PRATIBHA FRIED Report Released Date/Time: Nov 19, 2024 08:50 AM Reporting Lab: [address] [address] Performing Lab: [facility] [address] [place] [address] [facility] CBC MONOCYTES [#/VOLUME] IN BLOOD BY AUTOMATED COUNT 0.37 10*3/uL 0.19 - 0.80 12/16 Specimen Type: BLOOD No comment entered. Ordering Provider: PRATIBHA FRIED Report Released Date/Time: Nov 19, 2024 08:50 AM Reporting Lab: [address] [address] Performing Lab: [address] [address] [facility] CBC NEUTROPHIL S [#/VOLUME] IN BLOOD BY AUTOMATED COUNT 2.54 10*3/uL 2.10 - 8.00 12/16 Specimen Type: BLOOD No comment entered. Ordering Provider: PRATIBHA FRIED Report Released Date/Time: Nov 19, 2024 08:50 AM Reporting Lab: [place] [address] [place] [phone] Performing Lab: [place] [address] [place] [phone] [facility] CBC EOSINOPHIL S [#/VOLUME] IN BLOOD BY AUTOMATED COUNT 0.12 10*3/uL 0.00 - 0.60 12/16 Specimen Type: BLOOD No comment entered. Ordering Provider: PRATIBHA FRIED Report Released Date/Time: Nov 19, 2024 08:50 AM Reporting Lab: [place] [address] [place] [phone] Performing Lab: [place] [address] [address] [facility] [phone] CBC BASOPHILS [#/VOLUME] IN BLOOD BY AUTOMATED COUNT 0.06 10*3/uL 0.00 - 0.20 12/16 Specimen Type: BLOOD No comment entered. Ordering Provider: PRATIBHA FRIED Report Released Date/Time: Nov 19, 2024 08:50 AM Reporting Lab: [place] [address] [place] [phone] Performing Lab: [place] [address] [place] [phone] COMPREHE NSIVE METABOLI C PANEL CREATININE [MASS/VOLU ME] IN SERUM OR PLASMA 0.86 mg/dL 0.6 - 1.1 12/16 Specimen Type: PLASMA Comment: No hemolysis noted. VERIFIED BY REPEAT Ordering Provider: PRATIBHA FRIED Report Released Date/Time: Nov 19, 2024 08:50 AM Reporting Lab: [place] [address] [place] [phone] Performing Lab: [facility] [address] [facility] [address] [facility] COMPREHE NSIVE METABOLI C PANEL UREA NITROGEN [MASS/VOLU ME] IN SERUM OR PLASMA 10.3 mg/dL 9.0 - 25.0 12/16 Specimen Type: PLASMA Comment: No hemolysis noted. VERIFIED BY REPEAT Ordering Provider: PRATIBHA FRIED Report Released Date/Time: Nov 19, 2024 08:50 AM Reporting Lab: [facility] [address] [facility] [address] Performing Lab: [facility] [address] [facility] [address] [facility] COMPREHE NSIVE METABOLI C PANEL GLUCOSE [MASS/VOLU ME] IN SERUM OR PLASMA 81 mg/dL 72 - 99 12/16 Specimen Type: PLASMA Comment: No hemolysis noted. VERIFIED BY REPEAT Ordering Provider: PRATIBHA FRIED Report Released Date/Time: Nov 19, 2024 08:50 AM Reporting Lab: [facility] [address] [facility] [address] Performing Lab: [facility] [address] [facility] [address] [facility] COMPREHE NSIVE METABOLI C PANEL SODIUM [MOLES/VOL UME] IN SERUM OR PLASMA 139 meq/L 136 - 145 12/16 Specimen Type: PLASMA Comment: No hemolysis noted. VERIFIED BY REPEAT Ordering Provider: PRATIBHA FRIED Report Released Date/Time: Nov 19, 2024 08:50 AM Reporting Lab: [facility] [address] [facility] [address] Performing Lab: [facility] [address] [facility] [address] [facility] COMPREHE NSIVE METABOLI C PANEL POTASSIUM [MOLES/VOL UME] IN SERUM OR PLASMA 3.8 meq/L 3.5 - 5 12/16 Specimen Type: PLASMA Comment: No hemolysis noted. VERIFIED BY REPEAT Ordering Provider: PRATIBHA FRIED Report Released Date/Time: Nov 19, 2024 08:50 AM Reporting Lab: [facility] [address] [address] Performing Lab: [facility] [address] [address] [facility] COMPREHE NSIVE METABOLI C PANEL CHLORIDE [MOLES/VOL UME] IN SERUM OR PLASMA 105 meq/L 98 - 107 12/16 Specimen Type: PLASMA Comment: No hemolysis noted. VERIFIED BY REPEAT Ordering Provider: PRATIBHA FRIED Report Released Date/Time: Nov 19, 2024 08:50 AM Reporting Lab: [facility] [address] [address] Performing Lab: [facility] [address] [address] [facility] COMPREHE NSIVE METABOLI C PANEL CARBON DIOXIDE, TOTAL [MOLES/VOL UME] IN SERUM OR PLASMA 26 meq/L 22 - 31 12/16 Specimen Type: PLASMA Comment: No hemolysis noted. VERIFIED BY REPEAT Ordering Provider: PRATIBHA FRIED Report Released Date/Time: Nov 19, 2024 08:50 AM Reporting Lab: [facility] [address] [facility] [address] Performing Lab: [facility] [address] [address] [facility] COMPREHE NSIVE METABOLI C PANEL CALCIUM [MASS/VOLU ME] IN SERUM OR PLASMA 9.5 mg/dL 8.4 - 10.4 12/16 Specimen Type: PLASMA Comment: No hemolysis noted. VERIFIED BY REPEAT Ordering Provider: PRATIBHA FRIED Report Released Date/Time: Nov 19, 2024 08:50 AM Reporting Lab: [facility] [address] [address] Performing Lab: [facility] [address] [address] [facility] COMPREHE NSIVE METABOLI C PANEL PROTEIN [MASS/VOLU ME] IN SERUM OR PLASMA 7.1 g/dL 6 - 8.6 12/16 Specimen Type: PLASMA Comment: No hemolysis noted. VERIFIED BY REPEAT Ordering Provider: PRATIBHA FRIED Report Released Date/Time: Nov 19, 2024 08:50 AM Reporting Lab: [place] [address] [address] Performing Lab: [facility] [address] [address] [facility] COMPREHE NSIVE METABOLI C PANEL ALBUMIN [MASS/VOLU ME] IN SERUM OR PLASMA 4.1 g/dL 3.4 - 5 12/16 Specimen Type: PLASMA Comment: No hemolysis noted. VERIFIED BY REPEAT Ordering Provider: PRATIBHA FRIED Report Released Date/Time: Nov 19, 2024 08:50 AM Reporting Lab: [place] [address] [place] [phone] Performing Lab: [place] [address] [phone] COMPREHE NSIVE METABOLI C PANEL BILIRUBIN. TOTAL [MASS/VOLU ME] IN SERUM OR PLASMA 0.6 mg/dL 0.2 - 1.2 12/16 Specimen Type: PLASMA Comment: No hemolysis noted. VERIFIED BY REPEAT Ordering Provider: PRATIBHA FRIED Report Released Date/Time: Nov 19, 2024 08:50 AM Reporting Lab: [facility] [address] [address] Performing Lab: [place] [address] [phone] COMPREHE NSIVE METABOLI C PANEL ALKALINE PHOSPHATAS E [ENZYMATIC ACTIVITY/V OLUME] IN SERUM OR PLASMA 77 U/L 40 - 150 12/16 Specimen Type: PLASMA Comment: No hemolysis noted. VERIFIED BY REPEAT Ordering Provider: PRATIBHA FRIED Report Released Date/Time: Nov 19, 2024 08:50 AM Reporting Lab: [facility] [address] [facility] [facility] [address] Performing Lab: [facility] [address] [address] [facility] COMPREHE NSIVE METABOLI C PANEL ASPARTATE AMINOTRANS FERASE [ENZYMATIC ACTIVITY/V OLUME] IN SERUM OR PLASMA 28 U/L 5 - 34 12/16 Specimen Type: PLASMA Comment: No hemolysis noted. VERIFIED BY REPEAT Ordering Provider: PRATIBHA FRIED Report Released Date/Time: Nov 19, 2024 08:50 AM Reporting Lab: [facility] [address] [address] Performing Lab: [facility] [address] [address] [facility] COMPREHE NSIVE METABOLI C PANEL ALANINE AMINOTRANS FERASE [ENZYMATIC ACTIVITY/V OLUME] IN SERUM OR PLASMA 26 U/L 8 - 40 12/16 Specimen Type: PLASMA Comment: No hemolysis noted. VERIFIED BY REPEAT Ordering Provider: PRATIBHA FRIED Report Released Date/Time: Nov 19, 2024 08:50 AM Reporting Lab: [facility] [address] [facility] [address] Performing Lab: [facility] [address] [facility] [facility] [address] [facility] COMPREHE NSIVE METABOLI C PANEL GLOMERULAR FILTRATION RATE/1.73 SQ M.PREDICTE D [VOLUME RATE/AREA] IN SERUM, PLASMA OR BLOOD BY CREATININE -BASED FORMULA (CKD-EPI 2020) 81.2 60 12/16 Specimen Type: PLASMA Comment: No hemolysis noted. VERIFIED BY REPEAT Ordering Provider: PRATIBHA FRIED Report Released Date/Time: Nov 19, 2024 08:50 AM Reporting Lab: [facility] [address] [facility] [address] Performing Lab: [facility] [address] [facility] [address] [facility] MICRAL/C REAT PROFILE (STL) ALBUMIN [MASS/VOLU ME] IN URINE 15.9 mg/L 08/27 Specimen Type: URINE No comment entered. Ordering Provider: BG HERNANDEZ I Report Released Date/Time: Aug 13, 2024 02:46 PM Reporting Lab: [address] [phone] Performing Lab: [address] [address] [facility] MICRAL/C REAT PROFILE (STL) ALBUMIN/CR EATININE [MASS RATIO] IN URINE 7 mg/g 0 - 29 08/27 Specimen Type: URINE No comment entered. Ordering Provider: BG HERNANDEZ I Report Released Date/Time: Aug 13, 2024 02:46 PM Reporting Lab: [address] [address] Performing Lab: [address] [address] [facility] MICRAL/C REAT PROFILE (STL) CREATININE [MASS/VOLU ME] IN URINE 221.1 mg/dL 47 - 110 08/27 H Specimen Type: URINE No comment entered. Ordering Provider: BG HERNANDEZ I Report Released Date/Time: Aug 13, 2024 02:46 PM Reporting Lab: [address] [address] Performing Lab: [address] [address] [facility] HGA1C HEMOGLOBIN A1C/HEMOGL OBIN.TOTAL IN BLOOD 6.3 4.0 - 6.0 08/27 H Specimen Type: BLOOD No comment entered. Ordering Provider: BG HERNANDEZ I Report Released Date/Time: Aug 13, 2024 02:46 PM Reporting Lab: [address] [address] Performing Lab: [address] [address] [facility] COMPREHE NSIVE METABOLI C PANEL CREATININE [MASS/VOLU ME] IN SERUM OR PLASMA 1.11 mg/dL 0.6 - 1.1 08/27 H Specimen Type: PLASMA Comment: No hemolysis noted. Ordering Provider: BG HERNANDEZ I Report Released Date/Time: Aug 13, 2024 02:46 PM Reporting Lab: [facility] [address] [address] Performing Lab: [facility] [address] [facility] [address] [facility] COMPREHE NSIVE METABOLI C PANEL UREA NITROGEN [MASS/VOLU ME] IN SERUM OR PLASMA 13.4 mg/dL 9.0 - 25.0 08/27 Specimen Type: PLASMA Comment: No hemolysis noted. Ordering Provider: BG HERNANDEZ I Report Released Date/Time: Aug 13, 2024 02:46 PM Reporting Lab: [facility] [address] [facility] [address] Performing Lab: [facility] [address] [facility] [address] [facility] COMPREHE NSIVE METABOLI C PANEL GLUCOSE [MASS/VOLU ME] IN SERUM OR PLASMA 89 mg/dL 72 - 99 08/27 Specimen Type: PLASMA Comment: No hemolysis noted. Ordering Provider: BG HERNANDEZ I Report Released Date/Time: Aug 13, 2024 02:46 PM Reporting Lab: [facility] [address] [facility] [address] Performing Lab: [facility] [address] [facility] [address] [facility] COMPREHE NSIVE METABOLI C PANEL SODIUM [MOLES/VOL UME] IN SERUM OR PLASMA 141 meq/L 136 - 145 08/27 Specimen Type: PLASMA Comment: No hemolysis noted. Ordering Provider: BG HERNANDEZ I Report Released Date/Time: Aug 13, 2024 02:46 PM Reporting Lab: [facility] [address] [facility] [address] Performing Lab: [facility] [address] [address] [facility] COMPREHE NSIVE METABOLI C PANEL POTASSIUM [MOLES/VOL UME] IN SERUM OR PLASMA 4.1 meq/L 3.5 - 5 08/27 Specimen Type: PLASMA Comment: No hemolysis noted. Ordering Provider: BG HERNANDEZ I Report Released Date/Time: Aug 13, 2024 02:46 PM Reporting Lab: [facility] [address] [facility] [address] Performing Lab: [address] [phone] [place] [address] COMPREHE NSIVE METABOLI C PANEL CHLORIDE [MOLES/VOL UME] IN SERUM OR PLASMA 104 meq/L 98 - 107 08/27 Specimen Type: PLASMA Comment: No hemolysis noted. Ordering Provider: BG HERNANDEZ I Report Released Date/Time: Aug 13, 2024 02:46 PM Reporting Lab: [facility] [address] [facility] [address] Performing Lab: [facility] [address] [place] [phone] [facility] COMPREHE NSIVE METABOLI C PANEL CARBON DIOXIDE, TOTAL [MOLES/VOL UME] IN SERUM OR PLASMA 27 meq/L 22 - 31 08/27 Specimen Type: PLASMA Comment: No hemolysis noted. Ordering Provider: BG HERNANDEZ I Report Released Date/Time: Aug 13, 2024 02:46 PM Reporting Lab: [facility] [address] [facility] [address] Performing Lab: [facility] [address] [place] [phone] [facility] COMPREHE NSIVE METABOLI C PANEL CALCIUM [MASS/VOLU ME] IN SERUM OR PLASMA 9.7 mg/dL 8.4 - 10.4 08/27 Specimen Type: PLASMA Comment: No hemolysis noted. Ordering Provider: BG HERNANDEZ I Report Released Date/Time: Aug 13, 2024 02:46 PM Reporting Lab: [facility] [address] [address] Performing Lab: [facility] [address] [address] [facility] COMPREHE NSIVE METABOLI C PANEL PROTEIN [MASS/VOLU ME] IN SERUM OR PLASMA 7.7 g/dL 6 - 8.6 08/27 Specimen Type: PLASMA Comment: No hemolysis noted. Ordering Provider: BG HERNANDEZ I Report Released Date/Time: Aug 13, 2024 02:46 PM Reporting Lab: [facility] [address] [address] Performing Lab: [facility] [address] [facility] [address] [facility] COMPREHE NSIVE METABOLI C PANEL ALBUMIN [MASS/VOLU ME] IN SERUM OR PLASMA 4.2 g/dL 3.4 - 5 08/27 Specimen Type: PLASMA Comment: No hemolysis noted. Ordering Provider: BG HERNANDEZ I Report Released Date/Time: Aug 13, 2024 02:46 PM Reporting Lab: [facility] [address] [place] [phone] Performing Lab: [facility] [address] [address] [facility] COMPREHE NSIVE METABOLI C PANEL BILIRUBIN. TOTAL [MASS/VOLU ME] IN SERUM OR PLASMA 0.7 mg/dL 0.2 - 1.2 08/27 Specimen Type: PLASMA Comment: No hemolysis noted. Ordering Provider: BG HERNANDEZ I Report Released Date/Time: Aug 13, 2024 02:46 PM Reporting Lab: [facility] [address] [place] [phone] Performing Lab: [facility] [address] [facility] [address] [facility] COMPREHE NSIVE METABOLI C PANEL ALKALINE PHOSPHATAS E [ENZYMATIC ACTIVITY/V OLUME] IN SERUM OR PLASMA 82 U/L 40 - 150 08/27 Specimen Type: PLASMA Comment: No hemolysis noted. Ordering Provider: BG HERNANDEZ I Report Released Date/Time: Aug 13, 2024 02:46 PM Reporting Lab: [facility] [address] [facility] [address] Performing Lab: [facility] [address] [facility] [address] [facility] COMPREHE NSIVE METABOLI C PANEL ASPARTATE AMINOTRANS FERASE [ENZYMATIC ACTIVITY/V OLUME] IN SERUM OR PLASMA 49 U/L 5 - 34 08/27 H Specimen Type: PLASMA Comment: No hemolysis noted. Ordering Provider: BG HERNANDEZ I Report Released Date/Time: Aug 13, 2024 02:46 PM Reporting Lab: [facility] [address] [facility] [address] Performing Lab: [facility] [address] [place] [phone] [facility] COMPREHE NSIVE METABOLI C PANEL ALANINE AMINOTRANS FERASE [ENZYMATIC ACTIVITY/V OLUME] IN SERUM OR PLASMA 28 U/L 8 - 40 08/27 Specimen Type: PLASMA Comment: No hemolysis noted. Ordering Provider: BG HERNANDEZ I Report Released Date/Time: Aug 13, 2024 02:46 PM Reporting Lab: [facility] [address] [facility] [address] Performing Lab: [facility] [address] [place] [phone] [facility] COMPREHE NSIVE METABOLI C PANEL GLOMERULAR FILTRATION RATE/1.73 SQ M.PREDICTE D [VOLUME RATE/AREA] IN SERUM, PLASMA OR BLOOD BY CREATININE -BASED FORMULA (CKD-EPI 2020) 59.8 60 08/27 Specimen Type: PLASMA Comment: No hemolysis noted. Ordering Provider: BG HERNANDEZ I Report Released Date/Time: Aug 13, 2024 02:46 PM Reporting Lab: [facility] [address] [facility] [address] Performing Lab: [facility] [address] [facility] [address] [facility] LIPID PANEL (STL) CHOLESTERO L [MASS/VOLU ME] IN SERUM OR PLASMA 146 mg/dL 0 - 200 08/27 Specimen Type: PLASMA Comment: No hemolysis noted. Ordering Provider: BG HERNANDEZ I Report Released Date/Time: Aug 13, 2024 02:46 PM Reporting Lab: [facility] [address] [place] [phone] Performing Lab: [address] [address] [facility] LIPID PANEL (STL) TRIGLYCERI DE [MASS/VOLU ME] IN SERUM OR PLASMA 72 mg/dL 0 - 150 08/27 Specimen Type: PLASMA Comment: No hemolysis noted. Ordering Provider: BG HERNANDEZ I Report Released Date/Time: Aug 13, 2024 02:46 PM Reporting Lab: [address] [address] Performing Lab: [address] [address] [facility] LIPID PANEL (STL) CHOLESTERO L IN LDL [MASS/VOLU ME] IN SERUM OR PLASMA BY CALCULATIO N 75 mg/dL 08/27 Specimen Type: PLASMA Comment: No hemolysis noted. Ordering Provider: BG HERNANDEZ I Report Released Date/Time: Aug 13, 2024 02:46 PM Reporting Lab: [address] [address] Performing Lab: [address] [address] [facility] LIPID PANEL (STL) CHOLESTERO L IN HDL [MASS/VOLU ME] IN SERUM OR PLASMA 57 mg/dL 40 08/27 Specimen Type: PLASMA Comment: No hemolysis noted. Ordering Provider: BG HERNANDEZ I Report Released Date/Time: Aug 13, 2024 02:46 PM Reporting Lab: [address] [address] Performing Lab: [facility] [address] [place] [phone] [facility] B12 COBALAMIN (VITAMIN B12) [MASS/VOLU ME] IN SERUM OR PLASMA 491 pg/mL 213 - 816 01/09 Specimen Type: SERUM No comment entered. Ordering Provider: BG HERNANDEZ I Report Released Date/Time: Dec 31, 2023 10:01 AM Reporting Lab: [address] [address] Performing Lab: [address] [address] [facility] VITAMIN D, 25-HYDRO XY 25-HYDROXY VITAMIN D3 [MASS/VOLU ME] IN SERUM OR PLASMA 65.2 ng/mL 30 - 96 01/09 Specimen Type: SERUM No comment entered. Ordering Provider: BG HERNANDEZ I Report Released Date/Time: Dec 31, 2023 10:01 AM Reporting Lab: [address] [address] Performing Lab: [address] [address] [facility] Vital Signs Combined list of inpatient and outpatient Vital Signs from Department of Defense and Veterans Affairs, ranging from 12 months to all on record, depending upon the facility. Vital Sign Value Date Comments Source SYSTOLIC BLOOD PRESSURE 128 02/03/2025 11:52:52 [facility] DIASTOLIC BLOOD PRESSURE 76 02/03/2025 11:52:52 [facility] PULSE OXIMETRY 99 02/03/2025 11:52:52 [facility] WEIGHT 191 02/03/2025 11:52:52 [facility] BMI 33 kg/m2 02/03/2025 11:52:52 [facility] PAIN 0 02/03/2025 11:52:52 [facility] HEIGHT 64 02/03/2025 11:52:52 [facility] TEMPERATURE 98.1 02/03/2025 11:52:52 [facility] PULSE 81 02/03/2025 11:52:52 [facility] RESPIRATION 20 02/03/2025 11:52:52 [facility] SYSTOLIC BLOOD PRESSURE 130 01/06/2025 08:07:08 [facility] DIASTOLIC BLOOD PRESSURE 77 01/06/2025 08:07:08 [facility] PULSE OXIMETRY 99 01/06/2025 08:07:08 [facility] PAIN 0 01/06/2025 08:07:08 [facility] HEIGHT 64 01/06/2025 08:07:08 [facility] TEMPERATURE 98.2 01/06/2025 08:07:08 [facility] PULSE 87 01/06/2025 08:07:08 [facility] RESPIRATION 18 01/06/2025 08:07:08 [facility] SYSTOLIC BLOOD PRESSURE 134 12/24/2024 10:30:00 [facility] DIASTOLIC BLOOD PRESSURE 82 12/24/2024 10:30:00 [facility] PULSE OXIMETRY 98 12/24/2024 10:30:00 [facility] WEIGHT 191.2 12/24/2024 10:30:00 [facility] BMI 33 kg/m2 12/24/2024 10:30:00 [facility] PAIN 0 12/24/2024 10:30:00 [facility] HEIGHT 64 12/24/2024 10:30:00 [facility] TEMPERATURE 98.6 12/24/2024 10:30:00 [facility] PULSE 81 12/24/2024 10:30:00 [facility] RESPIRATION 12 12/24/2024 10:30:00 [facility] SYSTOLIC BLOOD PRESSURE 138 11/19/2024 08:33:35 [facility] DIASTOLIC BLOOD PRESSURE 76 11/19/2024 08:33:35 [facility] 99 11/19/2024 08:33:35 S Kurt [facility] WEIGHT 194.8 11/19/2024 08:33:35 [facility] BMI 34 kg/m2 11/19/2024 08:33:35 [facility] PAIN 0 11/19/2024 08:33:35 [facility] HEIGHT 64 11/19/2024 08:33:35 [facility] TEMPERATURE 98 11/19/2024 08:33:35 [facility] PULSE 86 11/19/2024 08:33:35 . [facility] RESPIRATION 18 11/19/2024 08:33:35 [facility] Encounters Combined list of: 1) Encounters from [...] Source [facility]([employer] [employer] ) OUTPATIENT [id number] profile issue MALIK ORTEGA 12/30 Released with Work/Duty Limitations [facility] and [facility] y Readine ss) [facility] ) OUTPATIENT [id number] PAP MALIK ORTEGA 01/04 Released with Work/Duty Limitations [facility]) [facility] ) TELE CONSULT [phone] f/u to discuss mri ankle result KENROY VO 01/10 [facility]) [facility]) OUTPATIENT [id number] 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;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 NIA MONSIVAIS 01/10 Released w/o Limitations [place] [facility], [place] ) OUTPATIENT [id number] PAP MALIK ORTEGA 01/11 Released w/o Limitations [place], [facility]) OUTPATIENT [id number] ankle joint pain JOSETTE FUENTES Saurav 01/28 Released w/o Limitations [place] [facility]) OUTPATIENT [id number] DYSMENO RRHEA [facility] W[facility]EL 04/04 Released w/o Limitations [place] [facility] REGAN Thomas(Immuni zation Clinic) OUTPATIENT [id number] [employer] ?? JARET THOMAS L 04/04 Released w/o Limitations [place]([facility]) TELE CONSULT [phone] surgery on 14 april; dischar ISELA Browne 04/25 [place] [facility], [place]) OUTPATIENT [id number] [facility]ased w/o Limitations [place] [facility] [id number] need profile update MALIK ORTEGA 05/20 Released with Work/Duty Limitations [place] [id number] SINUS INFECTI ON SANTO JULES 05/31 Released w/o Limitations [place], [facility]) OUTPATIENT [id number] Ankle joint pain JUNE BRAY 06/16 Released w/o Limitations [facility] [place] [facility] [place] OUT[place] [id number] infecte d hair folicle MALIK ORTEGA E 06/29 Released w/o Limitations [facility] [place] [facility] [place] OUTPATIENT [id number] infecte d hair folicle fu/ ORTEGAJOSE R RossCARMELA E 07/04 Released w/o Limitations [facility] [place] [facility] [place] OUTPATIENT [id number] SEASONA L WOJCIECH MCNALLY 07/06 Released w/o Limitations [facility] [place] [facility] [place] [id number] hep b+. STEFANIE STEEN 10/04 Released w/o Limitations [facility] [place] [facility] [place] OUT[place]IENT [id number] RONNIE DANIEL 10/04 Released w/o Limitations [facility] [place] [facility] [place] [id number] update profile ORTEGAJOSE RCARMELA E 10/04 Released with Work/Duty Limitations [facility] [place] [facility] [place] OUT[place]IENT [id number] profile MALIK ORTEGA E 01/04 Released with Work/Duty Limitations [facility] [place] [facility] [place] TELE CONSULT [id number] 5 Day B/P KENROY VO 01/04 [facility] [place] [facility] [place] [id number] Day1/ Day BP Check MALIK ORTEGA E 01/05 Released w/o Limitations [facility] [place] [facility] [employer] [place] OUTPATIENT [id number] Notes Entered by: ESTRELLITA TOVAR 30 Apr 2018 0815 ------- ------- ------- ------- -- (N P-DS) CONGEST ION,LOW ER BACK PAIN SHERRICORNEL 04/30 Released w/o Limitations [facility] [employer] [place] [place] [facility] [employer] [place] OUTPATIENT [id number] Notes Entered by: MARTÍNEZ OLSON 02 May 2018 0735 ------- ------- ------- ------- -- E 10/17= DS F/u back pain CORNEL POLANCO 05/02 Released w/o Limitations [facility] [employer] [place] S[facility] [place] [facility] [employer]) OUTPATIENT [id number] low back pain/ri ght leg pain per Tram Thao ld HA SYED 05/03 Released w/o Limitations [facility] [employer] [place] [facility] [employer]) OUTPATIENT [id number] back HA SYED 05/08 Released w/o Limitations [facility] [employer] [facility] [employer]) [place] [id number] BACK GIANNA BYRD 05/15 Released w/o Limitations [facility] [employer] [facility] [employer]) OUTPAT[place] [id number] BACK HA SYED 05/16 Released w/o Limitations [facility] [employer] [facility] [employer]) OUTPAT[place] [id number] BACK EDUARDO LÓPEZ JESSICA 05/22 Released w/o Limitations [facility] [employer] [place] [facility] [employer] S[facility] [place] OUTPATIENT [id number] Notes Entered by: SORAYA ISBELL 23 May 2018 1101 ------- ------- ------- ------- -- (D /S) Labs GTAO RODRIGUEZ 05/23 Released w/o Limitations [facility] [employer] [place] S[facility]B [facility] [facility] Outpatient Encounter [id number] 12/30 [facility] [facility] OFFICE O/P NEW MOD 45 MIN [id number] Diagnos is: ICD-10- CM E11.9 Type 2 diabete s mellitu s without complic ations GEOFFREY HERNANDEZ HI 12/30 [facility] PSYTX W PT 30 MINUTES [id number] [id number] Diagnos is: ICD-10- CM F43.20 Adjustm ent disorde r, unspeci JED Sultana T 12/30 [facility] Outpatient Encounter [id number] 01/03 [facility] OFF/OP EST JANUARY X REQ PHY/QHP [id number] [id number] Diagnos is: ICD-10- CM E11.9 Type 2 diabete s mellitu s without complic ations ROMANA PRIEST 01/07 [facility] HC PRO PHONE CALL 11-20 MIN [id number] [id number] Diagnos is: ICD-10- CM E11.9 Type 2 diabete s mellitu s without complic ations RMOANA PRIEST R 01/13 [facility] PSYTX W PT 45 MINUTES [id number] [id number] Diagnos is: ICD-10- CM F34.1 Dysthym ic disorde r JED SCHMIDT T 01/20 [facility] PSYTX W PT 30 MINUTES [id number] [id number] Diagnos is: ICD-10- CM F34.1 Dysthym ic disorde r JED SCHMIDT T 01/29 [facility] Outpatient Encounter [id number] 02/12 [facility] Outpatient Encounter [id number] JED SCHMIDT T 02/13 [facility] OFFICE O/P NEW MOD 45 MIN [id number] [id number] Diagnos is: ICD-10- CM E11.9 Type 2 diabete s mellitu s without complic ations DOMINIC MCDONNELL 02/26 [facility] Outpatient Encounter [id number] 04/16 [facility] Outpatient Encounter [id number] [id number] 06/23 [facility] Outpatient Encounter [id number] [id number] GEOFFREY HERNANDEZ HI 08/15 [facility] Outpatient Encounter [id number] GEOFFREY HERNANDEZ HI 08/29 [facility] OFF[facility] O/P EST MOD 30 MIN [id number] Diagnos is: ICD-10- CM E11.9 Type 2 diabete s mellitu s without complic ations GEOFFREY HERNANDEZ 08/29 [facility] Outpatient Encounter [id number] 10/08 [facility] NRV CNDJ TEST 9-10 STUDIES [id number] [id number] Diagnos is: ICD-10- CM G56.01 Carpal tunnel syndrom e, right upper limb POONAM PARTIDA 10/08 [facility] Outpatient Encounter [id number] 10/08 [facility] Outpatient Encounter [id number] [id number] ROMANA PRIEST R 10/16 [facility] Outpatient Encounter [id number] 10/31 [facility] Outpatient Encounter [id number] ROMANA PRIEST R 11/04 [facility] OFFICE O/P NEW MOD 45 MIN [id number] [id number] Diagnos is: ICD-10- CM G56.01 Carpal tunnel syndrom e, right upper limb PREVEL,CHR ISTOPHER D 11/19 [facility] Outpatient Encounter [id number] 11/19 [facility] Outpatient Encounter [id number] Diagnos is: ICD-10- CM Z04.89 Encount er for examina tion and observa tion for oth reasons YOCASTA TODD IEL P 12/03 [facility] PH1 ASSMT&MGMT NQHP 5-10 [id number] [id number] Diagnos is: ICD-10- CM G56.01 Carpal tunnel syndrom e, right upper limb TORRES,VE COMPA 12/12 [facility] Outpatient Encounter [id number] 1 12/16 [facility] ASSMT&MGMT NQHP 5-10 [id number] [id number] 5 Diagnos is: ICD-10- CM G56.01 Carpal tunnel syndrom e, right upper limb PERDOMO,CT NA D 12/23 [facility] ASSMT&MGMT NQHP 5-10 [id number] [id number] Diagnos is: ICD-10- CM G56.01 Carpal tunnel syndrom e, right upper limb TORRES,VE COMPA 12/23 [facility] OFF/OP EST MAY X REQ PHY/QHP [id number] [id number] Diagnos is: ICD-10- CM Z11.52 Encount er for screeni ng for COVID-1 9 FRANCISCO J TAY R 12/23 [facility] OFFICE O/P EST LOW 20 MIN [id number] [id number] Diagnos is: ICD-10- CM G56.01 Carpal tunnel syndrom e, right upper limb PREVEL,CHR ISTOPHER D 12/24 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, right arm, init FILOMENA PALENCIA L 12/24 [facility] OFFICE O/P EST LOW 20 MIN [id number] [id number] Diagnos is: ICD-10- CM Z01.818 Encount er for other preproc edural examina Saurav Hennessy 12/24 [facility] Outpatient Encounter [id number] [id number] Saurav GRIFFIN 12/24 [facility] Outpatient Encounter [id number] [id number] PREVEL,CHR ISTOPHER D 12/24 [facility] CARPAL TUNNEL SURGERY [id number] [id number] Diagnos is: ICD-10- CM G56.01 Carpal tunnel syndrom e, right upper limb KLAUDIA DE JESUS E 12/24 [facility] Outpatient Encounter [id number] [id number] KLAUDIA DE JESUS E 12/24 [facility] Outpatient Encounter [id number] [id number] TAHMINA REGAN E 12/24 [facility] Outpatient Encounter [id number] [id number] MICHAEL BARRERA A 12/24 [facility] SYNCH AUDIO-ONLY EST SF 10 [id number] [id number] Diagnos is: ICD-10- CM G56.01 Carpal tunnel syndrom e, right upper limb PREVEL,CHR ISTOPHER D 12/25 [facility] Outpatient Encounter [id number] 12/26 [facility] OFFICE O/P EST MOD 30 MIN [id number] [id number] Diagnos is: ICD-10- CM E11.9 Type 2 diabete s mellitu s without complic ations CAMI BYRD TTHEW C 12/26 [facility] POSTOP FOLLOW-UP VISIT [id number] [id number] Diagnos is: ICD-10- CM G56.01 Carpal tunnel syndrom e, right upper limb PREVEL,CHR ISTOPHER D 01/06 [facility] Outpatient Encounter [id number] [id number] CAMI BYRD TTHEW C 01/08 [facility] OFFICE O/P EST LOW 20 MIN [id number] [id number] Diagnos is: ICD-10- CM G56.00 Carpal tunnel syndrom e, unspeci fied upper limb KASWAN,SUM ESH 02/03 [facility] Outpatient Encounter [id number] 02/27 [facility] Procedures Combined list of: 1) Procedures from Department of Veterans Affairs facilities going back up to thelast 18 months, not all VA non-surgical procedures are included; 2) All procedures from the Department of Defense facilities. Procedure Procedure Type Code Date Perfomer Comments Sourc e Traction Pelvic Traction Pelvic 74841 EDUARDO HUGHES Modalities Electrical Stimulation Unattended Modalities Electrical Stimulation Unattended 42454 018 EDUARDO LÓPEZ Modalities Heat Hot Packs Modalities Heat Hot Packs 95806 018 EDUARDO LÓPEZ Physical Therapy Neuromuscular Re-education Physical Therapy Neuromuscular Re-education 34608 018 CONTHA GRECO [place] Physical Medicine Physical Therapy Re-Evaluation Physical Medicine Physical Therapy Re-Evaluation 03707 018 CONTFANNIE HA [place] Traction Pelvic Traction Pelvic 68152 018 GIANNA BYRD Modalities Electrical Stimulation Unattended Modalities Electrical Stimulation Unattended 50973 018 GIANNA BYRD Modalities Heat Hot Packs Modalities Heat Hot Packs 25930 018 GIANNA BYRD Exercises A isted Exercises For ROM Exercises Assisted Exercises For ROM 00022 018 CONTHA GRECO Physical Medicine Physical Therapy Re-Evaluation Physical Medicine Physical Therapy Re-Evaluation 79440 018 HA SYED Exercises A isted Exercises For ROM Exercises Assisted Exercises For ROM 75112 018 CONTOSHA Osteopathic Manip Treatment (OMT) 1-2 Body Regions Involved Osteopathic Manip Treatment (OMT) 1-2 Body Regions Involved 56643 018 CORNEL POLANCO Hot water bottle, ice cap or collar, heat and/or cold wrap, any type 018 CORNEL POLANCO A e ment & Intervention Blood Pre ure Measured 011 MALIK ORTEGA Determination Of Refractive State Determination Of Refractive State 64995 011 RONNIE RENEE Ophthalmological New Patient Start Comprehensive Care Ophthalmological New Patient Start Comprehensive Care 96897 011 RONNIE RENEE Hepatitis B Vaccine (Active); 20 Years and Above 011 JARET THOMAS Immunization Administration One Vaccine Immunization Administration One Vaccine 26928 011 JARET THOMAS Influenza Virus Vaccine Live Intranasal 010 ROCKY MORENO Immunization Admin By Intranasal / Oral Route One Vaccine Immunization Admin By Intranasal / Oral Route One Vaccine 51758 ROCKY MORENO [facility] Physical Therapy: ___ Se ion Segments, 15 Minutes Each Physical Therapy: ___ Session Segments, 15 Minutes Each 76242 JUNE BRAY [facility] Physical Medicine Physical Therapy Evaluation Physical Medicine Physical Therapy Evaluation 95558 JUNE BRAY [facility] Hepatitis B Vaccine (Active); 20 Years and Above WILLIAMJARET [facility] Immunization Administration One Vaccine Immunization Administration One Vaccine 63666 WILLIAM JARET L [facility] Physical Therapy: ___ Se ion Segments, 15 Minutes Each Physical Therapy: ___ Session Segments, 15 Minutes Each 92810 JOSETTE FUENTES [facility] Physical Medicine Physical Therapy Evaluation Physical Medicine Physical Therapy Evaluation 47121 JOSETTE FUENTES [facility] Screening papanicolaou smear; obtaining, preparing and conveyance of cervical or vaginal smear to laboratory NIA MONSIVAIS [facility] AUDIOMETRIC TESTING OF GROUPS [facility] BLOOD PRESSURE MEASURED (CKD)(DM) [facility] DETERMINATION OF REFRACTIVE STATE [facility] HEPATITIS B VACCINE (HEPB), ADULT DOSAGE, 3 DOSE SCHEDULE, FOR INTRAMUSCULAR USE [facility] INFLUENZA VIRUS VACCINE, TRIVALENT, LIVE (LAIV3), FOR INTRANASAL USE [facility] THERAPEUTIC PROCEDURE, 1 OR MORE AREAS, EACH 15 MINUTES; THERAPEUTIC EXERCISES TO DEVELOP STRENGTH AND ENDURANCE, RANGE OF MOTION AND FLEXIBILITY [facility] UNLISTED SPECIAL SERVICE, PROCEDURE OR REPORT [facility] EDUCATIONAL SUPPLIES, SUCH BOOKS, TAPES, AND PAMPHLETS, FOR THE PATIENT'S EDUCATION AT COST TO PHYSICIAN OR OTHER QUALIFIED HEALTH HEALTH AND SAFETY REPRESENTATIVE [facility] HEPATITIS B VACCINE (HEPB), ADULT DOSAGE, 3 DOSE SCHEDULE, FOR INTRAMUSCULAR USE [facility] THERAPEUTIC PROCEDURE, 1 OR MORE AREAS, EACH 15 MINUTES; THERAPEUTIC EXERCISES TO DEVELOP STRENGTH AND ENDURANCE, RANGE OF MOTION AND FLEXIBILITY [facility] SCREENING PAPANICOLAOU SMEAR; OBTAINING, PREPARING AND CONVEYANCE OF CERVICAL OR VAGINAL SMEAR TO LABORATORY [facility] AUDIOMETRIC TESTING OF GROUPS [facility] APPLICATION OF A MODALITY TO 1 OR MORE AREAS; HOT OR COLD PACKS 018 [facility] THERAPEUTIC PROCEDURE,1 OR MORE AREAS,EACH 15 MINUTES;NEUROMUSCULA R REEDUCATION OF MOVEMENT,BALANCE,TOGGLE PRESS OPERATOR RDINATION,KINESTHETI C SENSE,POSTURE,AND/OR PROPRIOCEPTION FOR SITTING AND/OR STANDING ACTIVITIES [facility] APPLICATION OF A MODALITY TO 1 OR MORE AREAS; HOT OR COLD PACKS [facility] THERAPEUTIC PROCEDURE, 1 OR MORE AREAS, EACH 15 MINUTES; THERAPEUTIC EXERCISES TO DEVELOP STRENGTH AND ENDURANCE, RANGE OF MOTION AND FLEXIBILITY [facility] THERAPEUTIC PROCEDURE, 1 OR MORE AREAS, EACH 15 MINUTES; THERAPEUTIC EXERCISES TO DEVELOP STRENGTH AND ENDURANCE, RANGE OF MOTION AND FLEXIBILITY [facility] COLD OR HOT FLUID BOTTLE, ICE CAP OR COLLAR, HEAT AND/OR COLD WRAP, ANY TYPE [facility] right carpal tunnel release CARPAL TUNNEL SURGERY 68968 025 [facility] Social History Combined list of available smoking, tobacco, and other social history from Department of Defense and Veterans Affairs facilities. Social History Type Response Date Comment Sour e Tobacco smoking status [facility] NEVER USED 12/31/2023 [facility] This section is an empty social history section. [facility] Plan of Care List of future care activities from Department of Veterans Affairs facilities. Additional future care activities may be listed in the Assessment and Plan section. Date/Time Care Activity Care Activity Detail Facili ty 03/19/2025 AMBULATORY - MEDICINE AMBULATORY - MEDICI NE [facility] Advance Directives List of completed, amended, or rescinded Advance Directives on record at Department of Veterans Affairs facilities. An actual copy of the Directive is not included. Date Advance Directive Provider Source 03/21/1996 ADVANCE DIRECTIVE HARJIT BURGOS [facility]
--- OUTSIDE RECORDS SUMMARY | 2025-03-06 00:51 | XMS_ITS | Continuity of Care Document ---
Author Organization [facility] Address [address] [place] [address] Phone Care Team Providers Care Manufacturers Service Representative Name Role Phone Miriam Thibodeaux PTA Unavailable [...] Diagnoses Date Provider Providers Copied on Encounter [facility] [facility] [place][note 2], [place], [place], [id number], tel:[phone] [place] No Information 4 Carlos Eduardo Miriam. . [facility], [place], [place], [address], tel:[phone] [place] No Information 4 [place] Miriam. . Referring Provider: Aicha Cuello, [address] [place], [address]. tel:[phone] [facility], [place], [place], [address], tel:[phone] [place] No Information 4 Kavon Mckeon. . Referring Provider: Aicha Cuello, [address] [place], [address]. tel:[phone] [facility], [place], [place], [address], tel:[phone] [place] No Information Aug- 2 Short Shannan. . Referring Provider: Aicha Cuello, [address] [place], [address]. tel:[phone] Family History Family Member Type Diagnosis Age At Onset No Information Payers Payer name Insurance type Covered republican ID Authordarion db(s) [facility] [id number] Social History Type Description Quantity Date Captured [...]
--- OUTSIDE RECORDS SUMMARY | 2025-03-06 00:51 | XMS_ITS | Encounter Summary ---
Author Organization [facility] Address [address] [place] [address] Care Team Providers Care Restaurant Attendant Name Role Phone Unavailable Primary Care Provider Unavailabl e Prior Encounters Date Type Department Care Team Description 10/06/2019 Converted 13x Documents [id number] [place] [address] <No scans attached> Plan of Treatment Not on file Visit Diagnoses Not on file
--- OUTSIDE RECORDS SUMMARY | 2025-03-06 00:51 | XMS_ITS | Clinical Summary ---
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 Active atorvastatin (LIPITOR) 40 mg tablet Take [...] Encounters Date Type Department Care Team Description 03/03/2025 External Device Data [facility] Provider, Abstract 02/10/2025 External Device Data [facility] Provider, [...] on file Legal Sex Female 4:21 AM INTAKE MAN Gender Identity Not on file Sexual Orientation [...] Screening 11/27/2028 Medical Devices Implanted Type Area Core Dipper Device Identifier Shelf Expiration Date Model / Serial / Lot Seamguard Endogia 60 Blk [id number] - [id number] Implanted:Qty : 2 on 05/10/2020 by Kacey Russo MD at [facility] N/A: Stomach [employer] 10/29/2022 [id number] / / [id number] Seamguard Endogia 60 Prpl [id number] - [id number] Implanted:Qty : 3 on 05/10/2020 by Kacey Russo MD at [facility] N/A: Abdomen [employer] 11/06/2022 [id number] / / [id number] Stamp Collector Endoclip Iii 5mm W/Cliplogic [id number] - [id number] Implanted:Qty : 1 on 05/10/2020 by Kacey Russo MD at [facility] N/A: Abdomen [employer] - COVIDIEN [id number] / / Insurance BCBS FEDERAL RX [facility] [employer] RX [employer] (INTERNAL) [facility] Internal Plans [employer] Advance Directives For more information, please contact: [phone] * Full Code (Latest Code Status on File) Date Activated Date Inactivated Comments 05/10/2020 5:09 PM 05/11/2020 9:25 PM * Full Code Date Activated Date Inactivated Comments 05/10/2020 2:22 PM 05/10/2020 5:09 PM * Full Code Date Activated Date Inactivated Comments 10/20/2019 9:21 AM 10/20/2019 6:27 PM Care Teams Solid Tire Tuber Machine Operator Relationship Specialty Start Date End Date Aicha Cuello MD [address] [place] [address] PCP - General Family Practice 09/12/19
--- NOTE | 2025-03-06 08:24 | WPDHPUPDATE1 ---
History and Physical Update Update Date/Time: 03/06/25 08:24 History and Physical has been reviewed, including an updated exam of the patient. There are NO changes in the patient's condition. Risks, benefits, and alternatives have been discussed and questions answered. Patient agrees to proceed with procedure. Proceed with eswl of right ureteral calculus
[2025-03-06 08:44] LABS: Glucose Point of Care 86 mg/dl (65-105)
--- NOTE | 2025-03-06 08:53 | P.PNAN_ITS ---
Anes - Initial Pre Proc Eval Procedure: Operation Date: 03/06/25 10:00 Proposed Procedures p Right Extracorporeal Shock Wave Lithotripsy - Valente Zuleta MD Date/Time: 03/06/25 08:53 Surgeon: Valente Zuleta MD Pre Op Diagnosis: Right Ureteral Stone Patient Data Age: 54 Gender: F Height: 1.63 m Weight: 82.6 kg Last Vital Signs Temp 36.7 C 03/06/25 08:20 Pulse 73 03/06/25 08:20 Resp 14 03/06/25 08:20 BP 130/82 03/06/25 08:20 Pulse Ox 100 03/06/25 08:20 O2 Del Method Room Air 03/06/25 08:20 Allergies Allergy/AdvReac Type Severity Reaction Status Date / Time No Known Allergies Allergy Verified 03/06/25 08:45 Home Medications ?Medication ?Instructions ?Recorded ?Confirmed ?Type bupropion HCl 300 mg 24 hr tablet, 300 mg PO DAILY 03/03/25 03/06/25 History extended release cholecalciferol (vitamin D3) 25 25 mcg PO DAILY 03/03/25 03/03/25 History mcg (1,000 unit) capsule (Vitamin D3) ezetimibe 10 mg tablet 10 mg PO HS 03/03/25 03/03/25 History multivitamin (Daily Multi-Vitamin 1 tablet PO DAILY 03/03/25 03/06/25 History tablet) rosuvastatin 10 mg tablet 10 mg PO HS 03/03/25 03/03/25 History semaglutide 2 mg/dose (8 mg/3 mL) 2 mg subcut WEEKLY 03/03/25 03/03/25 History subcutaneous pen injector (Ozempic) Laboratory Tests 03/06/25 08:42 POC Capillary Glucose 86 mg/dl (65-105) Patient hx anesthesia problems: none Family hx anesthesia problems: none Results Review: All pre-operative results and documents have been reviewed as part of the pre- operative evaluation. [facility] Social History Social History Smoking status: Never smoker Alcohol intake: current Living arrangements: with family Spiritual care concerns: No Anes - Eval Final PreProcedure Day of Procedure 03/06/25 08:53 Patient weight: obese Heart: regular rate and rhythm Lungs: clear to auscultation Airway: Mallampati scale class II Neurological: alert and oriented Last oral intake: >/= 8 hours ASA classification: III Emergent: no Anesthetic plan: proceed Anesthesia type and monitoring: general LMA and standard monitoring Results Review: All pre-operative results and documents have been reviewed as part of the pre- operative evaluation. Informed Consent: The patient's anesthetic plan and its attendant risks and benefits were discussed with the patient/family/POA. Questions were solicited and answers provided to the satisfaction of the patient/family/POA.
[2025-03-06] MEDS: ceFAZolin 2 GM/D5W 50 ML 2 GM/50 ML BAG IVPB (09:36)
--- NOTE | 2025-03-06 10:12 | W.PM.PROC2 ---
Procedure Note - Detailed Date of Procedure 03/06/25 Pre-op Diagnosis Right renal Stone Post-op Diagnosis Same Procedure Performed Lithotripsy of right renal calculus Surgeon Valente Zuleta MD Anesthesia General Description of Procedure Patient was taken to the operative suite correctly identified. Once anesthesia was obtained the stone was localized in both planes. Two thousand five hundred shocks were given to the stone. Patient tolerated procedure well without any complications and was taken recovery stable condition. She will follow-up in 10-14 days with a KUB. This completes dictation. Please send a copy of op note to my office Estimated Blood Loss 0 Drains No Packing No Pathology None sent Complications No immediate complications Condition Stable Disposition PACU
[2025-03-06] MEDS: LACTATED RINGERS 1,000 ML 30 ML IV CONT (10:30)
[2025-03-06 11:10] LABS: Glucose Point of Care 75 mg/dl (65-105)
[2025-03-06 11:10] LABS: Glucose Point of Care 69 mg/dl (65-105)
== END 2025-03-06 12:15 | disposition home or self-care (01) ==
PROVIDERS: Visit Provider Urology
PROC: (CPT 50590; principal; 2025-03-06 10:00)
DX: N20.0 Calculus of kidney (principal); G89.18 Other acute postprocedural pain; E03.9 Hypothyroidism, unspecified; E11.65 Type 2 diabetes mellitus with hyperglycemia; E55.9 Vitamin D deficiency, unspecified; E78.2 Mixed hyperlipidemia; G47.10 Hypersomnia, unspecified; G47.33 Obstructive sleep apnea (adult) (pediatric); R03.0 Elevated blood-pressure reading, without diagnosis of hypertension; G56.01 Carpal tunnel syndrome, right upper limb; G89.29 Other chronic pain; M25.511 Pain in right shoulder; Z79.1 Long term (current) use of non-steroidal anti-inflammatories (NSAID); Z79.85 Long-term (current) use of injectable non-insulin antidiabetic drugs; Z79.899 Other long term (current) drug therapy; Z99.89 Dependence on other enabling machines and devices; Z98.890 Other specified postprocedural states; Z98.84 Bariatric surgery status
CPT/HCPCS: 50590; 74018; 82948; J0690; J1100; J2405; J2704; J7120

== ENCOUNTER 2025-03-12 13:11 | Outpatient (CLI) | payer BC, SELFPAY ==
--- NOTE | ~2025-03-12 | XR_ITS ---
Exam: Abdomen 1V HISTORY: rt ureteral stone, SURGERY JUAN STILL HAVING PAIN COMPARISON: 03/06/2025 TECHNIQUE: Supine images of the abdomen FINDINGS: Bowel gas pattern is non-obstructive. There is no free air or deep sulci. Redemonstration of a 6.7 mm calculus adjacent to the inferior endplate of L3, unchanged in position w hen compared with previous examination. This likely corresponds to a mid right ureteral stone. Phleboliths within the pelvis, unchanged in position. Postsurgical change within the upper abdomen. IMPRESSION: Nonspecific, nonobstructive bowel gas pattern. 6.7 mm calculus likely within the mid right ureter, unchanged in position from previous examination. Reviewed, dictated and finalized at location A.
== END 2025-03-12 13:12 | disposition home or self-care (01) ==
PROVIDERS: Visit Provider Urology
DX: N20.1 Calculus of ureter (principal)
CPT/HCPCS: 74018

== ENCOUNTER 2025-03-27 01:29 | Day surgery (SDC) | payer BC, SELFPAY ==
--- NOTE | 2025-03-23 13:42 | PC.NURSE ---
Addendum entered by Bob Pabon RN 03/23/25 16:06: Correction, patient told surgery time is 1030. Original Note: Report to the Outpatient Waiting Room, entrance under the green pavilion located off [facility], at time _0830_ on date _[id number]_. Planned Procedure Time: _0930_.? Time changes happen often and if your time is changed the preop area will call you the afternoon before. - You and your visitor will be asked to self-screen and do not enter if you have any COVID symptoms. Please call surgeon if you need to reschedule. - A mask is optional within the hospital at this time. Patients may have clear liquids (water, carbonated beverages, clear teas, apple juice) until 3 hours prior to surgery with a maximum of 20 ounces. - No food from midnight until time of surgery and no smoking, or chewing tobacco (or any form of nicotine). No chewing gum, candy or mints. Take only the following medications with a SIP of water on the morning of surgery: __Bupropion DO NOT STOP ANY OF YOUR OTHER PRESCRIPTION MEDICATIONS PRIOR TO SURGERY EXCEPT THE FOLLOWING Hold all vitamins and supplements for 3 days per anesthesiologist. Medications to discontinue per physician Date to take last esqg___[id number] Please no make-up, nail latvian, hairspray, perfume, deodorant, or body powder the day of surgery.? No jewelry (including any body piercings) or valuables the day of surgery, leave them at home.? Please take a shower or bath the night before, or the morning of, surgery with an antibacterial soap.? Wear comfortable, loose fitting clothing.? - Jewelry must be removed prior to entering the operating room.? Rings and piercings that are not removed may be cut off. - The hospital will not accept responsibility for valuables.? - Please leave all valuables, including medications, at home the day of surgery. If you are going home after surgery, a licensed hydraulic lift driver must drive you home.? - NO public transportation without another adult if you receive anesthesia. - We recommend that an adult stay with you for 24 hours following discharge. - We also recommend that you do not drive, make important decision, drink alcoholic beverages, or take any drugs that were not prescribed by your health care provider for at least 24 hours after your discharge time. Follow any additional instructions given to you from your surgeon. Telephone instructions given to _Armida__and asked if any additional questions and then verbalized understanding. Patient advised to call surgeon office or pre surgery nurse liaison [phone] if any additional questions.
[2025-03-23 13:47] VITALS: BMI 31.2
[2025-03-27] VITALS (7 sets, daily range): BP systolic 137–164; BP diastolic 75–88; PULSE 58–69; RESP 12–18; TEMP 36.4–36.8; O2SAT 97–100
--- NOTE | ~2025-03-27 | XR_ITS ---
XR retrograde pyelo w/stent RT Ordering provider: Valente Zuleta MD History: . RIGHT SIDE STONE . Comparison: None. FINDINGS/impression: Fluoroscopy time is 35.4 seconds. Cumulative dose is 13.14 mGy. Right retrograde with double-J stent placement. Reviewed, dictated and finalized at location A.
--- OUTSIDE RECORDS SUMMARY | 2025-03-27 01:34 | XMS_ITS | Referral Summary ---
Author Organization [facility] Address [address] [place] [address] Care Team Providers Care Hvac Sales Engineer Name Role Phone Aicha Cuello MD Primary Care Provider Mariola Suarez Unavailable Jm Boyle MD Unavailable [phone] Vincent Byrd MD Unavailable [phone] Encounters Date Type Department Care Team Description 03/09/2025 1:00 PM CDT Office Visit [facility] Obstetrics and Gynecology [address] [facility] 1st [address] [place] [address] Isaura Olivares MD Decreased sexual desire (Primary Dx); Surgical menopause; Hot flashes due to menopause; Vaginal atrophy from Last 3 Months Allergies Active Allergy Reactions Criticality Noted Date Comments Amoxicillin Diarrhea Low Potassium Diarrhea Low Medications cholecalciferol (VITAMIN D-3) 2000 unit capsuleIndications:Vit greene D Deficiency Take 1 capsule (2,000 Units total) by mouth every morning Active montelukast (SINGULAIR) 10 mg tabletIndications:Seas onal Allergic Rhinitis Take 1 tablet (10 mg total) by mouth as needed 2021 Active Auvi-Q 0.3 mg/0.3 mL auto-injection syringeIndications:Yuli phylaxis 0.3 mL (0.3 mg total) as needed Epi pen that she has availabel for allergy shots, has never needed it 2021 Active fexofenadine (MARKUS) 180 mg tabletIndications:Mulugeta rgic Rhinitis Take 1 tablet (180 mg total) by mouth as needed 2021 Active ezetimibe (ZETIA) 10 mg tabletIndications:Fami lial hypercholesterolemia Take 1 tablet (10 mg total) by mouth daily 90 tablet 3 2022 Active Additional Information Patient taking differently:10 mg oralNightly, Indications: hyperlipidemia, Reported on 04/17/2024 buPROPion XL (WELLBUTRIN XL) 300 mg 24 hr tabletIndications:Anxi ety with Depression Take 1 tablet (300 mg total) by mouth every morning 2022 Active docusate sodium (Colace) 100 mg capsuleIndications:con stipation Take 1 capsule (100 mg total) by mouth 2 (two) times a day as needed for constipation 60 capsule 5 2022 Active ibuprofen (ADVIL,MOTRIN) 600 mg tablet Take 1 tablet (600 mg total) by mouth every 6 (six) hours as needed for pain 30 tablet 2023 Active acetaminophen (TYLENOL) 500 mg tablet Take 1 tablet (500 mg total) by mouth every 6 (six) hours as needed for pain 60 tablet 2023 Active polyethylene glycol (MIRALAX) 17 gram/dose bulk powder Take 17 g by mouth daily for 17 days 289 g 2023 Active naproxen (NAPROSYN) 500 mg tablet Take 1 tablet (500 mg total) by mouth 2 (two) times a day as needed 2023 Active semaglutide (OZEMPIC) 2 mg/dose (8 mg/3 mL) pen injector injectionIndications:T ype 2 diabetes mellitus without complication, without long-term current use of insulin (HCC) Inject 2 mg under the skin every 7 days 9 mL 3 10/28 Active rosuvastatin (CRESTOR) 10 mg tabletIndications:Fami lial hypercholesterolemia Take 1 tablet (10 mg total) by mouth daily 90 tablet 3 10/28 Active hydrOXYzine (ATARAX) 10 mg tablet Take 1 tablet (10 mg total) by mouth nightly as needed 2024 Active cephalexin (KEFLEX) 500 mg capsule Take 1 capsule (500 mg total) by mouth 3 (three) times a day 2024 Active sulfamethoxazole-trime thoprim (BACTRIM DS) 800-160 mg per tablet Take 1 tablet by mouth every 12 (twelve) hours 2024 Active tamsulosin (FLOMAX) 0.4 mg extended release capsule 2024 Active testosterone 50 mg/5 gram (1 %) Apply 2-3 drops to the forearms daily for decreased libido 15 g 2 2024 Active estradioL (Estrace) 0.01 % (0.1 mg/gram) vaginal creamIndications:Atrop hy of Vulva Insert 2 g into the vagina 2 (two) times a week 16 g 3 03/09 Discontinued testosterone 50 mg/5 gram (1 %) Apply 2-3 drops to the forearms daily for decreased libido 5 g 03/10 Discontinued( Reorder) Active Problems Patient Care Coordination No te [...] are negative. Problem Noted Date Diagnosed Date Calculus of ureter 03/09/2025 Flank pain 03/09/2025 Pyuria 03/09/2025 Surgical menopause 03/09/2025 Decreased sexual desire 03/09/2025 Vaginal atrophy 10/09/2024 Low libido 10/09/2024 Anxiety 06/30/2024 Carpal tunnel syndrome of right wrist 11/22/2022 Overview (11/22/2022): Added automatically from request for surgery [id number] Allergic rhinitis due to animal hair and dander 09/27/2022 Elevated blood pressure read ing without diagnosis of hypertension 09/27/2022 Pure hypercholesterolemia 09/27/2022 Rash 09/27/2022 Chronic right shoulder pain 08/16/2022 Impingement syndrome of right shoulder 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 Dysuria 08/23/2020 Dyslipidemia 05/10/2020 Morbid obesity with body mass index of 40.0-49.9 05/10/2020 LISA on CPAP 05/10/2020 S/P laparoscopic sleeve gastrectomy 05/10/2020 Uncontrolled type 2 diabetes mellitus with hyper glycemia 05/10/2020 Vitamin D deficiency 03/10/2020 Hypersomnia 11/14/2019 Familial hypercholesterolemia 07/16/2019 Fatigue due to sleep pattern disturbance [address] D (sexually transmitted disease) 01/02/2018 Elevated liver enzymes 12/04/2017 Encounter for long-term current use of medicatio n 08/15/2017 Muscle pain 08/15/2017 Type 2 diabetes mellitus 08/15/2017 Hypothyroidism 02/07/2017 Menorrhagia 12/22/2016 Hot flashes due to menopause 02/24/2014 Class [...] Diagnosed Date Resolved Date Postoperative pain 05/10/2020 Vaginal itching 01/02/2018 03/09/2025 Yeast infection of the vagina 01/02/2018 03/09/2025 Vaginal discharge 11/28/2017 03/09/2025 Abnormal uterine bleeding (AUB) 02/24/2014 03/09/2025 Immunizations Immunization Administration Dates Next Due Adenovirus [...] vative Free, Intramuscular 07/10/2017 Influenza, Unspecified 07/10/2023,2021,08/04/2021,06/23,07/28/2019,06/23/2018,07/10/2017 ,08/05/2016,07/24/2016,07/31/2015,07/18,07/21/2013,06/29/2012,,08/21/2009,08/22/2008,08/24/2007,12/2006,10/12/2003,07/20/1993 MMR 07/31/2015,08/24/1992 Measles / Rubella 09/24/1990 Meningococcal [...] on file Legal Sex Female 10:50 PM AFTER SCHOOL PROGRAM TEACHER Gender Identity Female 10/15/2018 11:21 AM AFTER SCHOOL PROGRAM TEACHER Sexual Orientation Not on file 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 Not on file Not on file Not on file Last Filed Vital Signs Vital Sign Reading Time Taken Comments Blood Pressure 115/76 03/09/2025 1:00 PM CDT Pulse 76 03/09/2025 1:00 PM CDT Temperature 37 C (98.6 F) 10/28/2024 10:45 AM AFTER SCHOOL PROGRAM TEACHER Respiratory Rate 18 10/28/2024 10:45 AM AFTER SCHOOL PROGRAM TEACHER Oxygen Saturation 100% 05/01/2024 12:10 PM CDT Inhaled Oxygen Concentration - - Weight 84 kg (185 lb 3.2 oz) 03/09/2025 1:00 PM CDT Height 163.4 cm (5' 4.33) 03/09/2025 1:00 PM CD T Body Mass Index 31.46 03/09/2025 1:00 PM CDT Plan of Treatment Not on [...] HEPATITIS C ANTIBODY Routine 11/25/2021 2:33 PM AFTER SCHOOL PROGRAM TEACHER Screening for STD (sexually transmitted disease) THINPREP TIS PAP AND HR HPV DNA REFLEX GENOTYPES 16,18 Routine 11/18/2021 4:58 PM AFTER SCHOOL PROGRAM TEACHER from Last 3 Months or Most Recently [...] MD LAB BLOOD ORDERABLES Fi nal Result SRIDEVI CONNELL [facility] Department of Laboratories [place], [place] [id number] * (ABNORMAL) POCT hemoglobin A1c (04/17/2024 11:09 [...] and children were not included. (Diabetes Care 31:0375-2104, 2008). The eAG is not equivalent to a fasting glucose. Blood 04/17/2024 11:0 9 AM CDT 04/17/2024 11:09 AM CDT us Isaura Olivares MD POINT OF CARE TEST ROGER MCCLENDON Final Result Performing Organization Address [facility] Co de Phone Number SRIDEVI [facility] Department [place] [address] * Albumin Creatinine Ratio, Urine (03/28/2023 3:11 PM CDT) Pathologist [facility] Creatinine, ur 130 20 - 275 mg/dL [...] ORDERABLES Zora l Result Performing Organization Address City/[facility]/ZIP Co de Phone Number QUEST [facility] [address] [address] [address] * Lipid panel (05/12/2022) Blood specimen (specimen) [...] compared to prior imaging studies performed at [facility] on 10/29/2015, and at [facility]. [place], [place] on 10/11/2018 and 12/15/2020. There are [...] compared to prior imaging studies performed at [facility] on 10/29/2015,and at [facility]. [place], [place] on 10/11/2018 and 12/15/2020. There are scattered areas of fibroglandular density. There is no suspicious abnormality in either breast. Impression: There is no mammographic evidence of malignancy. Annual screening mammography is recommended. OVERALL FINAL ASSESSMENT: BI-RADS CATEGORY 1: Negative. Linn Gómez NP IMG MAMMO PROCEDURES Final Result * Hepatitis C antibody (11/25/2021 2:33 PM AFTER SCHOOL PROGRAM TEACHER) Hep C Ab NON-REACTI VE NON-REACT DANELLE [facility] SIGNAL TO CUT-OFF 0.04 <1.00 [facility] Comment: HCV antibody was non-reactive. There is no laboratory evidence of HCV infection. In most cases, no further action is required. However, if recent HCV exposure is suspected, a test for HCV RNA (test code 93225) is suggested. For additional information please refer to http://education.QuickSolar/faq/AUU70x1 (This link is being provided for informational/ educational purposes only.) Blood specimen (specimen) 11/25/2021 2:33 PM AFTER SCHOOL PROGRAM TEACHER 11/25/2021 2:34 PM AFTER SCHOOL PROGRAM TEACHER Linn Gómez NP LAB MICROBIOLOGY - G ENERAL ORDERABLES Final Result [facility] [employer] ManagementAleda [facility]. [facility] CenterMuscat[facility] [address] [place] [address] * THINPREP TIS PAP AND HR HPV DNA REFLEX GENOTYPES 16,18 (11/18/2021 4:58 PM AFTER SCHOOL PROGRAM TEACHER) CLINICAL INFORMATION: SCREENING PERIMENOPAUSAL [facility] LMP 11/02/2021 [facility] Previous Pap INFORMATION NOT PROVIDED [facility] Prev. Bx INFORMATION NOT PROVIDED [facility] SOURCE: Cervix, Endocervix [facility] Pap, specimen adequacy Satisfactory for evaluation. Endocervical/mckee sformation zone component present. [facility] HPV interp Negative for intraepithelial lesion or malignancy. [facility] COMMENTS This Pap test has been evaluated with computer assisted technology. [facility] Stem Dryer Maintainer MMW, CT(ASCP) CT screening location: [place] [address] [address] [address] [facility] Comment [facility] Comment: EXPLANATORY NOTE: The Pap is a [...] High Risk E6/E7 Not Detected NOT DETECTED [employer] /[facility] Comment: Not Detected High Risk HPV types (16,18,31,33,35,39,45,51,52, 56,58,59,66,68) were not detected. Other HPV types which cause anogenital lesions may be present. The significance of the other types of HPV in malignant processes has not been established. Methodology: Real Time PCR 11/18/2021 4:58 PM AFTER SCHOOL PROGRAM TEACHER 11/21/2021 5:31 AM AFTER SCHOOL PROGRAM TEACHER us Linn Gómez NP LAB CYTOLOGY ORDERAB LES Final Result [facility] [address] [place] [address] [employer]/Clari Replaced by [facility] [address] [facility] [place] [address] from Last 3 Months or Most Recently Relevant to Health Maintenance Insurance [facility] FEDERAL Care Teams Hvac Sales Engineer Relationship Specialty Start Date End Date Aicha Cuello MD [address] [place] [address] PCP - General Family Practice 10/15/18 Mariola Suarez PA [address] [place] [address] Physician Securities Adviser Dermatology 04/22/21 Jm Boyle MD [address] [place] [address] Director Emergency Dermatology 04/22/21 Vincent Byrd MD [address] [place] [address] Consulting Physician Plastic Surgery 12/05/22
--- OUTSIDE RECORDS SUMMARY | 2025-03-27 01:34 | XMS_ITS ---
Author Organization [facility] [employer] [facility] [place] ([address]) Address [address] [place] [address] Care Team Providers Care Manga Artist Name Role Phone Aicha Cuello Primary Care Provider Zackery Manning Unavailable [phone] Rashid Palafox Unavailable [phone] REASON FOR VISIT SCIT - Traditional Schedule Allergy Immunotherapy Encounters Encounter Location Date Provider Diagnosis [facility] [place] [address] [place] [address] 03/24/2025 Rashid Palafox Allergic rhinitis due to [...] 1 Week, Reason: Provider Name:Rashid Palafox , 04/22/2025 03:30:00 PM, [address] [place], [address], Progress Notes * Shant DAVISraDOB:1970 (54 yo F)Acc No.[id number]:03/24/2025 SCIT-Aeroallergen Patient: Armida JOENS Provider: Nayeli Palafox MD :1970 A ge:54 Y S ex:Female Date:03/24/2025 Address:[address] [place], [place] [address] Pcp:Aicha Cuello Subjective: * Chief Complaints: * [...] Information: * Visit Code: * Procedure Codes: 36118 IMMUNOTHERAPY INJECTIONS. * Electronic signature of Cassidy Palafox MD, FAAAAI on 03/27/2025 at 01:34 AM CDT Sign off status: Pending * Provider: Nayeli Palafox MD Date: 0 03/24/2025 Generated for Magi Varma/eTransmitting on: 0 03/27/2025 01:34 AM CDT History and Physical Notes * [...]
--- OUTSIDE RECORDS SUMMARY | 2025-03-27 01:34 | XMS_ITS | Encounter Summary ---
Author Organization [facility] Address [address] [place] [address] Care Team Providers Care Ceramic Coater Name Role Phone Aicha Cuello MD Primary Care Provider Reason for Visit * Diagnostic Imaging (Routine) - Closed Specialty Diagnoses / Procedures Referred By Erisac t Referred To Contact Diagnoses Lung nodule Procedures Breast Imaging Screening Outside Reference Referral, Self Referral ID Status Reason Start Date Expiration Date Visits Re quested Visits Authorized [id number] Closed 01/12/2022 02/11/2023 1 1 Encounter Details Date Type Department Care Team (Late st Contact Info) Description 12/15/2020 Hospital Encounter [facility] [address] [place] [address] Social History Tobacco Use Types Packs/Day Years [...] on file Legal Sex Female 10:50 PM MARINE EQUIPMENT ENGINEER Gender Identity Female 10/15/2018 11:21 AM MARINE EQUIPMENT ENGINEER Sexual Orientation Not on file 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 There will be no report generated by a [facility] Radiologist. Narrative RAD_[id number] - 01/12/2022 [...] documented as of this encounter Care Teams Ceramic Coater Relationship Specialty Start Date End Date Aicha Cuello MD [facility] [place] [address] PCP - General Family Practice 10/15/18 documented as of this encounter
--- OUTSIDE RECORDS SUMMARY | 2025-03-27 01:34 | XMS_ITS | Clinical Summary ---
Author Organization [facility] Address [address] [place] [address] Care Team Providers Care Director Regulatory Affairs Name Role Phone Aicha Cuello MD Primary Care Provider Mariola Suarez Unavailable Jm Boyle MD Unavailable [phone] Vincent Byrd MD Unavailable [phone] Allergies Active Allergy Reactions Criticality Noted Date [...] (11/22/2022): Added automatically from request for surgery [id number] Allergic rhinitis due to animal hair and [...] 03/09/2025 Abnormal uterine bleeding (AUB) 02/24/2014 03/09/2025 Encounters Date Type Department Care Team Description 03/09/2025 1:00 PM CDT Office Visit [facility] Obstetrics and Gynecology [address] [facility] [address] [place] [address] Isaura Olivares MD Decreased sexual desire (Primary Dx); Surgical menopause; Hot flashes due to menopause; Vaginal atrophy from Last 3 Months Immunizations [...] on file Legal Sex Female 10:50 PM COLLAR TURNER OPERATOR Gender Identity Female 10/15/2018 11:21 AM COLLAR TURNER OPERATOR Sexual Orientation Not on file Occupation [...] 37 C (98.6 F) 10/28/2024 10:45 AM COLLAR TURNER OPERATOR Respiratory Rate 18 10/28/2024 10:45 AM COLLAR TURNER OPERATOR Oxygen Saturation 100% 05/01/2024 12:10 PM CDT Inhaled Oxygen Concentration - - Weight 84 kg (185 lb 3.2 oz) 03/09/2025 1:00 PM CDT Height 163.4 cm (5' 4.33) 03/09/2025 1:00 PM CD T Body Mass Index 31.46 03/09/2025 1:00 PM CDT Plan of Treatment Health Maintenance [...] 2024 08/04/2021, 01/25/2021, 12/28/2020 Regular Well Visit/Exam 18-64 07/24/2024, 11/18/2021, 10/06/2020, Additional history exists Hemoglobin A1C 10/18/2024 04/17/2024, 03/17, 05/12/2022, Additional history exists eGFR 04/17/2025 04/17/2024, 1103/2020, 04/02/2020, Additional history exists Influenza Vaccine (#1) 2025 , 07/10/2023, 06/29/2022, Additional history exists Lipid Panel 09/06/2025 09/06/2024, 06/18, 03/23/2023, Additional history exists Hepatitis B Screening Completed 10/04/2010 , 04/04/2010, 12/29/2009 Cervical Cancer Screening Discontinued 11/18/2021, 06/2017 Hepatitis C Screening Completed 11/25/2021, 017 Zoster Vaccine Completed 11/23/2023, 07/13/2023 Procedures Procedure Name Priority Date/Time Associated Diagnosis [...] HEPATITIS C ANTIBODY Routine 11/25/2021 2:33 PM COLLAR TURNER OPERATOR Screening for STD (sexually transmitted disease) THINPREP TIS PAP AND HR HPV DNA REFLEX GENOTYPES 16,18 Routine 11/18/2021 4:58 PM COLLAR TURNER OPERATOR from Last 3 Months or Most [...] ORDERABLES Fi nal Result SRIDEVI CONNELL [facility] Department [place] [address] * (ABNORMAL) POCT hemoglobin A1c (04/17/2024 11:09 AM CDT) Hgb A1C, POC 6.0(H) 4.0 - 5.6 % Est Average Gluc POC 126 mg/dL [facility] Comment: The ADA recommends reporting an estimated Average Glucose (eAG) with all Hemoglobin A1c results using the equation derived from a study of 507 normal and diabetic adults. Minority populations were underrepresented and children were not included. (Diabetes Care 31:9273-7426, 2008). The eAG is not equivalent to a fasting glucose. Blood 04/17/2024 11:0 9 AM CDT 04/17/2024 11:09 AM CDT Isaura Olivares MD POINT OF CARE TEST ROGER MCCLENDON Final Result Performing Organization Address City/[facility]/ZIP Co de Phone Number [facility] Department [place] [address] * Albumin Creatinine Ratio, Urine (03/28/2023 3:11 [...] 3:11 PM CDT 03/28/2023 3:11 PM CDT Toña Sandoval MD LAB URINE ORDERABLES Zora l Result Performing Organization Address [facility] Co de Phone Number [facility] [address] [place] [address] * Lipid panel (05/12/2022) Blood specimen (specimen) Toña Sandoval MD LAB BLOOD ORDERABLES Zora l Result Performing Organization Address [facility] de Phone Number [facility] * SCREENING MAMMOGRAM [...] compared to prior imaging studies performed at [facility] on 10/29/2015, and at [facility]. [place], [place] on 10/11/2018 and 12/15/2020. There are [...] compared to prior imaging studies performed at [facility] on 10/29/2015,and at [facility]. [place], [place] on 10/11/2018 and 12/15/2020. There are scattered areas of fibroglandular density. There is no suspicious abnormality in either breast. Impression: There is no mammographic evidence of malignancy. Annual screening mammography is recommended. OVERALL FINAL ASSESSMENT: BI-RADS CATEGORY 1: Negative. Linn Gómez NP IMG MAMMO PROCEDURES Final Result * Hepatitis C antibody (11/25/2021 2:33 PM COLLAR TURNER OPERATOR) Hep C Ab NON-REACTI VE NON-REACT DANELLE [facility] SIGNAL TO CUT-OFF 0.04 <1.00 [facility] Comment: HCV antibody was non-reactive. There is no laboratory evidence of HCV infection. In most cases, no further action is required. However, if recent HCV exposure is suspected, a test for HCV RNA (test code 17971) is suggested. For additional information please refer to http://education.[employer]/faq/OPA62k7 (This link is being provided for informational/ educational purposes only.) Blood specimen (specimen) 11/25/2021 2:33 PM COLLAR TURNER OPERATOR 11/25/2021 2:34 PM COLLAR TURNER OPERATOR Linn Gómez NP LAB MICROBIOLOGY - G ENERAL ORDERABLES Final Result [facility] [address] [address] * THINPREP TIS PAP AND HR HPV DNA REFLEX GENOTYPES 16,18 (11/18/2021 4:58 PM COLLAR TURNER OPERATOR) CLINICAL INFORMATION: SCREENING PERIMENOPAUSAL [facility]2021 [facility] Previous Pap INFORMATION NOT PROVIDED [facility] Prev. Bx INFORMATION NOT PROVIDED [facility] SOURCE: Cervix, Endocervix [facility] Pap, specimen adequacy Satisfactory for evaluation. Endocervical/mckee sformation zone component present. [facility] HPV interp Negative for intraepithelial lesion or malignancy. [facility] COMMENTS This Pap test has been evaluated with computer assisted technology. [facility] President And Chief Operating Officer MMW, CT(ASCP) CT screening location: [place] [address] [address] Araya [address] [facility] Comment [facility] Comment: EXPLANATORY NOTE: The Pap is [...] High Risk E6/E7 Not Detected NOT DETECTED [facility] [place] Comment: Not Detected High Risk HPV types (16,18,31,33,35,39,45,51,52, 56,58,59,66,68) were not detected. Other HPV types which cause anogenital lesions may be present. The significance of the other types of HPV in malignant processes has not been established. Methodology: Real Time PCR 11/18/2021 4:58 PM COLLAR TURNER OPERATOR 11/21/2021 5:31 AM COLLAR TURNER OPERATOR Linn Gómez NP LAB CYTOLOGY ORDERAB LES Final Result [facility] [address] [address] [phone] [facility] [employer] [address] [facility] [address] Dexter [place] from Last 3 Months or Most Recently Relevant to Health Maintenance Insurance [facility] Care Teams Director Regulatory Affairs Relationship Specialty Start Date End Date Aicha Cuello MD [address] [facility] [place] [address] PCP - General Family Practice 10/15/18 Mariola Suarez PA [address] [place] [address] Physician Cable Engineer Dermatology 04/22/21 Jm Boyle MD [address] [place] [address] Produce Associate Dermatology 04/22/21 Vincent Byrd MD [address] [place] [address] Consulting Physician Plastic Surgery 12/05/22
--- OUTSIDE RECORDS SUMMARY | 2025-03-27 01:35 | XMS_ITS | Encounter Summary ---
Author Organization [facility] Address [address] [place] [address] Care Team Providers Care Storage Center Manager Name Role Phone Aicha Cuello MD Primary Care Provider [phone] Encounter Details Date Type Department Care Team (Late st Contact Info) Description 07/25/2024 MyChart Message Enc [address] [address] Aicha Cuello MD [address] [place] [address] Back pain Social History Tobacco Use Types Packs/Day Years Used Date Smoking Tobacco: Never Smokeless Tobacco: Never Alcohol Use Standard Drinks/Week Comments Not Currently 0 (1 standard drink = 0.6 oz pur e alcohol) PHQ-2 Answer Date Recorded Patient Health Questionnaire-2 Score 0 06/30/2024 Comments No Sex and Gender Information Value Date Recorded Sex Assigned at Female 10/10/2024 3:28 PM MCAT INSTRUCTOR Legal Sex Female 8:27 PM CDT Gender Identity Female 11/06/2024 2:42 PM MCAT INSTRUCTOR Sexual Orientation Not on file documented as of this encounter Plan of Treatment Upcoming Encounters Date Type Department Care Team (Late Contact Info) Description 04/27/2025 2:40 PM CDT Office Visit [address] [address] Aicha Cuello MD [address] [place] [address] documented as of this encounter Visit Diagnoses Not on filedocumented in this encounter Additional Health Concerns Assessment Noted Time PHQ-9 Depression Total Score: 1 05/14/20 24 9:45 AM CDT documented as of this encounter Care Teams Storage Center Manager Relationship Specialty Start Date End Date Aicha Cuello MD [address] [place] [address] PCP - General FAMILY PRACTICE 08/21/18 documented as of this encounter
--- OUTSIDE RECORDS SUMMARY | 2025-03-27 01:35 | XMS_ITS | Encounter Summary ---
Author Organization [employer] Address [address] [place] [address] Care Team Providers Care Lockstitch Topstitcher Name Role Phone Aicha Cuello MD Primary Care Provider Encounter Details Date Type Department Care Team (Late st Contact Info) Description 06/29/1998 Outpatient Historical [facility] PRIMARY CARE Ciara Velasco MD Social History Tobacco Use Types Packs/Day Years Used Date Smoking Tobacco: Never Assessed Comments Unknown Sex and Gender Information Value Date Recorded Sex Assigned at Not on file Legal Sex Female 4:21 AM IN HOME BABY SITTER Gender Identity Not on file Sexual Orientation Not on file documented as of this encounter Plan of Treatment Not on file documented as of this encounter Visit Diagnoses Not on filedocumented in this encounter Care Teams Lockstitch Topstitcher Relationship Specialty Start Date End Date Aicha Cuello MD [address] [place] [address] PCP - General Family Practice 09/12/19 documented as of this encounter
--- OUTSIDE RECORDS SUMMARY | 2025-03-27 01:35 | XMS_ITS | Encounter Summary ---
Author Organization [facility] Address [address] [place] [address] Care Team Providers Care Quality Control Analyst Name Role Phone Aicha Cuello MD Primary Care Provider [phone] Encounter Details Date Type Department Care Team (Late Contact Info) Description 11/09/2021 [facility] [address] Cases Live Message Enc [address] [address] [email or web address] Provider appt Social History Tobacco Use [...] Sex Assigned at Female 10/10/2024 3:28 PM B AND B GANG WORKER Legal Sex Female 8:27 PM CDT Gender Identity Female 11/06/2024 2:42 PM B AND B GANG WORKER Sexual Orientation Not on file COVID-19 Exposure Response Date Recorded In the last 10 days, have yo u been in contact with someone who was confirmed or suspected to have Coronavirus/COVID-19? No / Unsure 11/07/2021 10:26 AM B AND B GANG WORKER documented as of this encounter Plan of Treatment Upcoming Encounters Date Type Department Care Team (Late Contact Info) Description 04/27/2025 2:40 PM CDT Office Visit [address] [address] Aicha Cuello MD [address] [place] [address] documented as of this encounter Visit Diagnoses Not on filedocumented in this encounter Additional Health Concerns Assessment Noted Time PHQ-9 Depression Total Score: 3 11/07/19 22 10:32 AM B AND B GANG WORKER documented as of this encounter Care Teams Quality Control Analyst Relationship Specialty Start Date End Date Aicha Cuello MD [address] [place] [address] PCP - General FAMILY PRACTICE 08/21/18 documented as of this encounter
--- OUTSIDE RECORDS SUMMARY | 2025-03-27 01:35 | XMS_ITS | Encounter Summary ---
Author Organization [employer] Address 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
--- OUTSIDE RECORDS SUMMARY | 2025-03-27 01:35 | XMS_ITS | Encounter Summary ---
Author Organization [facility] Address [address] [place] [address] Care Team Providers Care Powder Press Operator Name Role Phone Aicha Cuello MD Primary Care Provider [phone] Encounter Details Date Type Department Care Team (Late st Contact Info) Description 08/02/2021 MyChart Message Enc [address] [address] Aicha Cuello MD [address] [place] [address] Medication Questions Social History Tobacco Use [...] Sex Assigned at Female 10/10/2024 3:28 PM SUPERVISOR BIT AND SHANK DEPARTMENT Legal Sex Female 8:27 PM CDT Gender Identity Female 11/06/2024 2:42 PM SUPERVISOR BIT AND SHANK DEPARTMENT Sexual Orientation Not on file documented as of this encounter Plan of Treatment Upcoming Encounters Date Type Department Care Team (Late Contact Info) Description 04/27/2025 2:40 PM CDT Office Visit [address] [address] Aicha Cuello MD [address] [place] [address] documented as of this encounter Visit Diagnoses Not on filedocumented in this encounter Additional Health Concerns Assessment Noted Time PHQ-9 Depression Total Score: 10 01/28/ 020 11:26 AM CDT documented as of this encounter Care Teams Powder Press Operator Relationship Specialty Start Date End Date Aicha Cuello MD [address] [place] [address] PCP - General FAMILY PRACTICE 08/21/18 documented as of this encounter
--- OUTSIDE RECORDS SUMMARY | 2025-03-27 01:35 | XMS_ITS | Encounter Summary ---
Author Organization [employer] Address 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
--- OUTSIDE RECORDS SUMMARY | 2025-03-27 01:35 | XMS_ITS | Encounter Summary ---
Author Organization [facility] Address [address] [place] [address] Care Team Providers Care Child Care Associate Teacher Name Role Phone Aicha Cuello MD Primary Care Provider [phone] Encounter Details Date Type Department Care Team (Late st Contact Info) Description 10/18/2024 MyChart Message Enc [address] [address] Aicha Cuello MD [address] [place] [address] New medication Social History Tobacco Use Types Packs/Day Years Used Date Smoking Tobacco: Never Smokeless Tobacco: Never Alcohol Use Standard Drinks/Week Comments Not Currently 0 (1 standard drink = 0.6 oz pur e alcohol) PHQ-2 Answer Date Recorded Patient Health Questionnaire-2 Score 4 10/10/2024 Comments No Sex and Gender Information Value Date Recorded Sex Assigned at Female 10/10/2024 3:28 PM CLEARING DISTRIBUTION CLERK Legal Sex Female 8:27 PM CDT Gender Identity Female 11/06/2024 2:42 PM CLEARING DISTRIBUTION CLERK Sexual Orientation Not on file documented as of this encounter Plan of Treatment Upcoming Encounters Date Type Department Care Team (Late Contact Info) Description 04/27/2025 2:40 PM CDT Office Visit [address] [address] Aicha Cuello MD [address] [place] [address] documented as of this encounter Visit Diagnoses Not on filedocumented in this encounter Additional Health Concerns Assessment Noted Time PHQ-9 Depression Total Score: 18 025 3:49 PM CLEARING DISTRIBUTION CLERK documented as of this encounter Care Teams Child Care Associate Teacher Relationship Specialty Start Date End Date Aicha Cuello MD [address] [place] [address] PCP - General FAMILY PRACTICE 08/21/18 documented as of this encounter
--- OUTSIDE RECORDS SUMMARY | 2025-03-27 01:35 | XMS_ITS | Encounter Summary ---
Author Organization [employer] Address [address] [place] [address] Care Team Providers Care Counter Clerk Name Role Phone Aicha Cuello MD [...] on file Legal Sex Female 4:21 AM LEAK PATCHER Gender Identity Not on file Sexual Orientation Not on file documented as of this encounter Plan of Treatment Not on file documented as of this encounter Visit Diagnoses Not on filedocumented in this encounter Care Teams Counter Clerk Relationship Specialty Start Date End Date Aicha Cuello MD [address] [place] [address] PCP - General Family Practice 09/12/19 documented as of this encounter
--- OUTSIDE RECORDS SUMMARY | 2025-03-27 01:35 | XMS_ITS | Encounter Summary ---
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 Role Phone ANN-MARIE RUBIO Primary Care [...] USPS BASIC SELF Sep 17, 2024 33A [id number] [phone] LAWRENCE BRYAN PATIENT ANTHEM [employer] [place] FEP PREFERRED PROVIDER ORGANIZAT ION (PPO) USPS BASIC SELF Sep 17, 2024 33A [id number] [phone] LAWRENCE BRYAN PATIENT ANTHEM [place] F[place] PREFERRED PROVIDER ORGANIZAT ION (PPO) USPS BASIC SELF Sep 17, 2024 33A [id number] [phone] LAWRENCE BRYAN PATIENT [place] F[place] PREFERRED PROVIDER ORGANIZAT ION (PPO) USPS BASIC SELF Sep 17, 2024 33A [id number] [phone] LAWRENCE BRYAN PATIENT [employer] FEP ([id number]) PRESCRIPT ION FEPRX Nov 26, 2021 [id number] [phone] LAWRENCE BRYAN PATIENT [employer] PREFERRED PROVIDER ORGANIZAT ION (PPO) BI-ST KYLE ESCOBAR OPMEN T Sep 17, 2023 [id number] [phone] WHIT RISTOPHER SPOUSE Selected Encounter This section includes the information on record at [place] for the Encounter. Date/Time Encounter Type Encounter Description Reason Provider Source Mar 19, 2025 10:30 AM OFFICE O/P EST MOD 30 MIN PRIMARY CARE/MEDICINE ICD-10-CM E11.9 Type 2 diabetes mellitus without complications ANN-MARIE RUBIO Wilfred Encounter Template Text not used by [place] Assessments - Encounter Diagnoses This section includes the primary and secondary diagnoses documented for the Encounter. 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 This section includes future appointments and future orders which are active, pending or scheduled. Future Appointments This section includes appointments that were scheduled to occur 6 months from the date of the Encounter, up to a maximum of 20 appointments. The data comes from all [facility]. Appointment Date/Time Appointment Type Appointme nt Facility Name May 05, 2025 12:00 PM AMBULATORY - REHAB MEDICIN E [facility] May 06, 2025 08:30 AM AMBULATORY - NONE DARSHANA Anatoliy [facility] May 20, 2025 08:00 AM AMBULATORY - NONE [facility] DARSHANA Cope [facility] Active, Pending, and Scheduled Orders This section includes a listing of several types of active, pending, and scheduled orders, including clinic medications orders, diagnostic test orders, procedure orders and consult orders; where the start date of the order is 45 days before the date of the Encounter or 45 days after the date of theEncounter. The data comes from all [facility]. Test Date/Time Test Type Test Details Facility Name Mar 19, 2025 12:00 AM Laboratory - Chemi stry Order OCCULT BLOOD FIT X1 SCREEN STOOL FECES SP [facility] Mar 19, 2025 11:08 AM Consult Order PT OUTPT S TL Cons Inspector Fibrous Wallboard's Choice [facility] Lab Results: +/- 30 days of the encounter This section includes the Chemistry and Hematology Lab Results on record with [facility] for the patient. Radiology Reports and Pathology Reports are provided separately, in subsequent sections. Lab Results This section contains the Chemistry/Hematology Results that were resulted 30 days before or 30 daysafter the date of the Encounter. Date/Time Source Result Type Result - Unit Interpretation Reference Range Specimen Type Comment Mar 17, 2025 07:31 AM [facility] MICRAL/CREAT PROFILE (STL) URINE Specimen Typ e: URINE No comment entered. Ordering Provider: ANN-MARIE RUBIO Report Released Date/Time: Mar 11, 2025 02:26 PM Reporting Lab: [facility] [address] [facility] [facility] [phone] Performing Lab: [facility] [address] [facility] [phone] URINE ALBUMIN (PB-STL) 14.0 mg/L uACR (STL) 8 mg/g 0-29 CREATININE URINE/OTHERS 177.8 mg/dL H 47-1 10 Mar 17, 2025 07:23 AM [facility] HGA1C BLOOD Specimen Type: BLOOD No comment entered. Ordering Provider: ANN-MARIE RUBIO Report Released Date/Time: Mar 11, 2025 02:26 PM Reporting Lab: [facility] [address] [facility] [phone] Performing Lab: [facility] [address] [facility] [phone] HGA1C 6.0 4.0-6.0 Mar 17, 2025 07:23 AM [facility] TSH (MA-PB) SERUM Specimen Type: SERUM No comment entered. Ordering Provider: ANN-MARIE RUBIO Report Released Date/Time: Mar 11, 2025 02:26 PM Reporting Lab: [facility] [address] [place] [phone] Performing Lab: [address] [phone] TSH 1.301 u[IU]/mL 0.47-5 Mar 17, 2025 07:23 AM [facility] LIPID PANEL (STL) PLASMA Specimen Type: PLASM A Comment: No hemolysis noted. Ordering Provider: ANN-MARIE RUBIO Report Released Date/Time: Mar 11, 2025 02:26 PM Reporting Lab: [facility] [address] [place] [phone] Performing Lab: [address] [address] CHOLESTEROL 128 mg/dL 0-200 TRIGLYCERIDE 77 mg/dL 0-150 CALCULATED LDL 61 mg/dL HDL(New) 52 mg/dL >40 Mar 17, 2025 07:23 AM [facility] COMPREHENSIVE METABOLIC PANEL PLASMA Specimen Type: PLASMA Comment: No hemolysis noted. Ordering Provider: ANN-MARIE RUBIO Report Released Date/Time: Mar 11, 2025 02:26 PM Reporting Lab: [facility] [address] [place] [phone] Performing Lab: [facility] [address] [place] [phone] CREATININE 1.19 mg/dL H 0.6-1.1 UREA NITROGEN 15.3 mg/dL 9.0-25.0 GLUCOSE 80 mg/dL 72-99 SODIUM 139 meq/L 136-145 POTASSIUM 3.7 meq/L 3.5-5 CHLORIDE 106 meq/L 98-107 CARBON DIOXIDE 28 meq/L 22-31 CALCIUM 9.3 mg/dL 8.4-10.4 PROTEIN 7.4 g/dL 6-8.6 ALBUMIN 4.1 g/dL 3.4-5 TOTAL BILIRUBIN 0.5 mg/dL 0.2-1.2 ALKALINE PHOSPHATASE 83 U/L 40-150 AST/SGOT 29 U/L 5-34 ALT/SGPT 22 U/L 8-40 EGFR (CKD-EPI 2020) 55.0 >60 Mar 17, 2025 07:23 AM [facility] VITAMIN D, 25-HYDROXY SERUM Specimen Type: SE RUM No comment entered. Ordering Provider: ANN-MARIE RUBIO Report Released Date/Time: Mar 11, 2025 02:26 PM Reporting Lab: [facility] [address] [facility] [phone] Performing Lab: [facility] [address] [facility] [phone] VITAMIN D, 25-HYDROXY 88.4 ng/mL 30-96 Vital Signs: All taken on the encounter date This section contains inpatient and outpatient Vital Signs collected on the date of the Encounter. Date/Time Temperature Pulse Blood Pressure Respiratory Rate SP02 Pain Height Weight Body Mass Index Source Mar 19, 2025 11:07 AM 138/84 mm[Hg] [facility] Mar 19, 2025 10:40 AM 98.2 F 76 /min 156/84 mm[Hg] 16 /min 97 % 0 64 in 183.9 lb 32 [facility] Social History: Smoking Status (Most current) and Tobacco Use (All prior to encounter date) This section includes the most current, and the historical, smoking and tobacco- related health factors from the [place] facility where the Encounter took place. Current Smoking Status This section includes the most current smoking, or tobacco-related health factor, from the [place] facility where the Encounter took place. Date/Time Current Smoking Status Comment Facil ity Dec 31, 2023 09:00 AM VA-TOBACCO NEVER USED [facility] Advance Directives: All historical and current Section Date Range: From patient's date of to the date document was created. This section includes ALL of a patient's completed or amended [place] Advance and Rescinded Directives. The entries below indicate that a directive exists for the patient, but an actual copy is not included with this document. The data comes from all [place] facilities. Date Advance Directives Provider Source Mar 21, 1996 ADVANCE DIRECTIVE [facility] Encounter Notes: All associated encounter notes This section contains the clinical notes associated to the Encounter. Date/Time Encounter Note(s) Provider Source Mar 19, 2025 10:55 AM PRIMARY CARE NOTE: LOCAL TITLE: PRIMARY CARE PROVIDER ESTABLISHED VISIT STL STANDARD TITLE: PRIMARY CARE NOTE DATE OF NOTE: MAR 19, 2025@10:55 ENTRY DATE: MAR 19, 2025@10:56:05 AUTHOR: ANN-MARIE RUBIO EXP COSIGNER: URGENCY: STATUS: COMPLETED Patient is: ESTABLISHED Chief Complaint / Hx of present illness fu on chr med issues being treated for rt ureteric stone at [facility] c/o pain in rt shoulder / rt hip - no injury Outside providers: Review of Systems:see PHI Past Medical History: 1) NKA 2) THYROID GOITER 3) Urinary Tract Infections 4) Contraception 5) Diabetes Mellitus Type 2 ([facility] [id number]) 6) Hyperlipidemia ([facility] 51942151) 7) Obstructive Sleep Apnea of Adult ([facility] [id number]) 8) Anxiety ([facility] 07972927) 9) Hypothyroidism ([facility] 11998743) 10) Recurrent depression 11) Ulnar neuropathy of right arm 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 Indication: FOR DEPRESSION Active Non-VA Medications Status 1) Non-VA BUPROPION [...] THE SKIN EVERY WEEK Indication: FOR DIABETES 6 Total Medications Allergies: Patient has answered NKA Objective: Physical Exam: VSD - Detailed Vitals Date Vital Measurement Qualifiers 03/19/2025 10:40 Temp F (C) 98.2 (36.8) Pulse 76 Respir 16 BP 156/84 Ht in (cm) 64 (162.56) Wt lbs (kg)[BMI] 183.9 (83.42)[32*] Pain 0 POx (L/Min)(%) 97 General: Alert and oriented. NAD. Head: Atraumatic. Normocephalic. Eyes: Conjunctiva clear. Nasal: Normal mucosa without discharge. Mouth/Throat: Oral mucosa is pink and moist. Neck: Supple. Cardiovascular: Regular rate and rhythm. No murmurs or extra heart sounds appreciated on auscultation. Respiratory: Breathing is nonlabored on room air. Lungs are clear to auscultation bilaterally. Abdomen: Abdomen is soft, nontender, and non-distended. Extremities: No edema. rt shoulder painful rom - limited / mild rt si tend Neurologic: CN II-XII grossly intact. No focal deficits. LAST CBC/DIFF DONE WITHIN 8 WEEKS: No data available LAB CUMULATIVE SELECTED 2 Collection DT Spec CHOL TRIG CalcLDL HDL a 03/17/2025 07:23 PLASM 128 77 61 52 b 08/27/2024 07:38 PLASM 146 72 75 57 c 01/10/2024 06:52 PLASM 124 55 55 58 COMMENTS: a. No hemolysis noted. b. No hemolysis noted. c. No hemolysis noted. PSA PC STL No data available for: PROST. SPECIFIC AG.(PB-STL) Collection DT Specimen Test Name Result Units Ref Range 03/17/2025 07:23 PLASMA CREATININE 1.19 H mg/dL 0.6 - 1.1 03/17/2025 07:23 PLASMA UREA NITROGEN 15.3 mg/dL 9.0 - 25.0 03/17/2025 07:23 PLASMA GLUCOSE 80 mg/dL 72 - 99 03/17/2025 07:23 PLASMA SODIUM 139 mEq/L 136 - 145 03/17/2025 07:23 PLASMA POTASSIUM 3.7 mEq/L 3.5 - 5 03/17/2025 07:23 PLASMA CHLORIDE 106 mEq/L 98 - 107 03/17/2025 07:23 PLASMA CARBON DIOXIDE 28 mEq/L 22 - 31 03/17/2025 07:23 PLASMA CALCIUM 9.3 mg/dL 8.4 - 10.4 03/17/2025 07:23 PLASMA PROTEIN 7.4 g/dL 6 - 8.6 03/17/2025 07:23 PLASMA ALBUMIN 4.1 g/dL 3.4 - 5 03/17/2025 07:23 PLASMA TOTAL BILIRUBIN 0.5 mg/dL 0.2 - 1.2 03/17/2025 07:23 PLASMA ALKALINE PHOSPHAT 83 U/L 40 - 150 03/17/2025 07:23 PLASMA AST/SGOT 29 U/L 5 - 34 03/17/2025 07:23 PLASMA ALT/SGPT 22 U/L 8 - 40 03/17/2025 07:23 PLASMA EGFR (CKD-EPI 202 55.0 Ref: >=60 Comment: No hemolysis noted. Collected: 03/12/1996 Acc: [id number] Specimen: VAGINAL PAP SMEAR Brief Clinical Hx: 25 YEAR OLD FEMALE---LMP6-20-96; G0. ROUTINE EXAM. Gross Description: ONE PREPARED SMEAR Microscopic exam: FEW ACUTE INFLAMMATORY CELLS SEEN. ENDOCERVICAL CELLS SEEN. No data available for: COLONOSCOPY CONSULT REPORT STL SLT - Lab Tests Selected Collection DT Specimen Test Name Result Units Ref Range 03/17/2025 07:23 BLOOD HGA1C 6.0 % 4.0 - 6.0 08/27/2024 07:38 BLOOD HGA1C 6.3 H % [...] / left Carpal tunnel release in 2021 right nephrolithiasis ----pt has rt ureteric calcui - being addressed at [facility] ----- discussed labs ---rt shoulder / rt hip pain ella PT will alert [facility] a1c 6. - pt on ozempic thru pvt pcp/ endo ct rx - rt CTS / hx of left cts release in 2021 will obtain ncv/emg rt ue rx naproxen 500mg bid brace rt hand at night - ct rx zetia , wellbutrin , rosuvastatin -ct cpap / sees [facility] sleep [facility] - ct rxs - ct fu pcmhi today -julio w bso on 05/01/24 for benign reasons rtc vvc in 6 mths LABE DISCUSSED Avg Risk Colorectal Cancer Screen - L,N,P,PH: AVERAGE RISK colorectal cancer screening is due based on information available to this clinical reminder FOBT/FIT (Fecal Immunochemical Testing) has been ordered. See order tab for details. Breast Cancer Screening - L,N,P,PH,U: See orders tab for any orders that may have been entered. HTN Assess for Elevated BP>=140/90 - N,P,PH: Repeat blood pressure: 138/84 The patient's blood pressure is usually adequately controlled. No medication changes are indicated at this time. /tristin/ ANN-MARIE RUBIO STAFF PHYSICIAN Signed: 03/19/2025 11:25 Receipt Acknowledged By: 03/24/2025 13:15 /tristin/ HA ROSE National Board Certified Health & Barrel Assembly Inspector ANN-MARIE RUBIO [facility] Mar 19, 2025 10:43 AM NURSING NOTE: LOCAL TITLE: V15 PACT FACE TO FACE NOTE STL STANDARD TITLE: NURSING NOTE DATE OF NOTE: MAR 19, 2025@10:43 ENTRY DATE: MAR 19, 2025@10:43:43 AUTHOR: OMAR ALLRED EXP COSIGNER: URGENCY: STATUS: COMPLETED V15 PACT FACE TO FACE NOTE STL Has ADDENDA Provider Visit: Patient Identifiers : Full Name Date of Reason for visit: Established Follow-Up Mode of Arrival: Ambulatory Allergy Review: ALLERGIES/ADVERSE REACTIONS - NONE FOUND Allergy list reviewed and remains current. Recent Vital Signs: Temperature: 98.2 F [36.8 C] (03/19/2025 10:40) Pulse: 76 (03/19/2025 10:40) Respiration: 16 (03/19/2025 10:40) B/P: 156/84 (03/19/2025 10:40) Pain: 0 (03/19/2025 10:40) Wt: 183.9 lb [83.42 kg] (03/19/2025 10:40) Ht: 64 in [162.6 cm] (03/19/2025 10:40) BMI: 31.6 POX: 97% (03/19/2025 10:40) Blood sugar glucometer reading: recent lab PERSONAL HEALTH INVENTORY Notes: No data available for PHI note titles PERSONAL HEALTH INVENTORY - MAP: 03/11/2025 Personal Health Plan [place], Purpose (MAP) health 08/29/2024 Personal Health Plan [place], [place] (MAP) my health 12/31/2023 Personal Health Plan [place], [place] (MAP) [facility] to stay alive for What matters most to you in your life right now? -- [place]'s Response: grandkids and kids WHOLE HEALTH SHARED GOALS: PERSONAL HEALTH PLAN - SHARED GOALS: 03/11/2025 [facility] Shared Goals stay active and healthy 08/29/2024 Php Shared Goals stay active 12/31/2023 Php Shared Goals stay healthy control diabetes and cholesterol SHARED GOALS no specific goal Would you like to discuss any personal problem, family problem, alcohol use, drug use, or a mental or emotional illness? No Contact provided Primary Care phone number and encouraged to call if any questions or concerns. Review that after hours nurse line [phone] and emergency room are available 09/04 for patient use. Contact verbalized good understanding. Depression Screening - V: Perform PHQ-2 A PHQ-2 screen was performed. The score was 2 which is a negative screen for depression. Over the past two weeks, how often have you been bothered by the following problems? 1. Little interest or pleasure in doing things Several days 2. Feeling down, depressed, or hopeless Several days Herpes Zoster (Shingles) Vaccine - L,N,P,PH,U: The patient declines to receive the recommended dose of zoster (shingles) vaccine. Immunization: ZOSTER RECOMBINANT Refusal Reason: PATIENT DECISION Patient refuses all immunization(s) in the ZOSTER group Comment: states has had these vaccinations Date Documented: 03/19/25 10:48 Pneumococcal Conjugate Vaccine (PCV15/PCV20/PCV21) - L,N,P,PH,U: Refuses PCV vaccine Immunization: PNEUMOCOCCAL CONJUGATE, UNSPECIFIED FORMULATION Refusal Reason: PATIENT DECISION Patient refuses all immunization(s) in the PneumoPCV group Date Documented: 03/19/25 10:48 Tdap Immunization - L,N,P,PH,U: The patient declines to receive the recommended dose of Tdap vaccine. Immunization: TDAP Refusal Reason: PATIENT DECISION Patient refuses all immunization(s) in the TDAP group Date Documented: 03/19/25 10:49 /tristin/ OMAR ALLRED LPN LICENSED PRACTICAL NURSE Signed: 03/19/2025 10:50 03/19/2025 ADDENDUM STATUS: COMPLETED Fit test with verbal and written instructions given to the per order of Dr Rubio. /boyd ALLRED LPN LICENSED PRACTICAL NURSE Signed: 03/19/2025 11:15 OMAR ALLRED [facility]
--- OUTSIDE RECORDS SUMMARY | 2025-03-27 01:35 | XMS_ITS | Patient Health Record ---
Author Organization [facility]ly [facility] [place] ([address]) Address [address] [place] [address] Care Team Providers Care Instrument Man Name Role Phone Aicha Cuello Primary Care Provider UnavailZackery Lakhani Unavailable [phone] Rashid Palafox Unavailable [phone] Anita Vela Unavailable [phone] Allergies No Known Allergies Reason For Referral No Information Medications Medication SIG (Take, Route, Frequency, Duration) Notes Start Date End Date Status Auvi-Q 0.3 MG/0.3ML as directed intramuscularly once; Duration: 30 days Active Fluticasone Propionate 50 MCG/ACT 2 spray(s) in each nostril BID; Duration: 30 day(s) Not-Taking FLUoxetine HCl 40 MG 1 cap(s) orally onc e a day; Duration: 30 day(s) 10/12/2021 Not-Mario ing Gabapentin 300 MG ; Duration: 30 Not-Taking Wellbutrin XL 300 MG 1 tablet in the mor sahara Orally Once a day Active Montelukast Sodium 10 MG 1 tab(s) orally once a day; Duration: 30 day(s) Not-Mario ing Ozempic (1 MG/DOSE) 4 MG/3ML as directed Subcutaneous Act mary lou Famotidine 40 MG 1 tab(s) orally 30 m ins prior to SCIT; Duration: 90 days Not-Taking Fexofenadine HCl 180 MG 1 tab(s) orally Daily; Duration: 30 day(s) Active Sertraline HCl 50 MG 1 tab(s) orally onc e a day; Duration: 30 day(s) 10/12/2021 Not-Mario ing FEXOFENADINE 180 mg 1 tab(s) orally Ramona y; Duration: 30 day(s) Active Famotidine 40 mg 1 tab(s) orally 30 m ins prior to SCIT; Duration: 30 days Active Montelukast Sodium 10 MG 1 tab(s) orally once a day; Duration: 30 day(s) Active FLUTICASONE NASAL 50 mcg/inh 2 spray(s) in each nostril BID; Duration: 30 day(s) Active Pioglitazone HCl 15 MG 1 tab(s) orally o nce a day; Duration: 30 day(s) 10/12/2021 Not-Mario ing FAMOTIDINE 40 mg 1 tab(s) orally 30 m ins prior to SCIT; Duration: 30 days Active Ezetimibe 10 MG 1 tab(s) orally once a day; Duration: 30 day(s) 10/12/2021 Active MONTELUKAST 10 mg 1 tab(s) orally once a day; Duration: 30 day(s) Active Rosuvastatin Calcium 10 MG 1 tab(s) orally once a day; Duration: 30 day(s) 10/12/2021 Active AUVI -Q 0.3 mg as directed intramuscularly once; Duration: 30 days Active NASAL WASHES N/A as directed intranas ally as needed; Duration: 30 Active SIT (TRADITIONAL) variable per schedule SC per schedule; Duration: to be determined Active Immunizations Vaccine Route Administration Date Status [...] Problem Status W/U Status Risk Notes Problem Information temporarily unavailable Type 2 diabetes mellitus without complications (E11.9) Active confirmed Problem Information temporarily unavailable Other chronic allergic conjunctivitis (H10.45) Active confirmed Problem Information temporarily unavailable Allergic rhinitis due to pollen (J30.1) Active confirmed Problem Information temporarily unavailable Other allergic rhinitis (J30.89) Active confirmed Problem Information temporarily unavailable Allergic rhinitis due to animal (cat) (dog) hair and dander (J30.81) Active confirmed Problem Information temporarily unavailable Rash and other nonspecific skin eruption (R21) Active confirmed Problem Information temporarily unavailable Elevated blood-pressure reading, without diagnosis of hypertension (R03.0) Active confirmed Problem Information temporarily unavailable Pure hypercholesterolem ia, unspecified (E78.00) Active confirmed Vital Signs Oximetry 99 % 03/25/2025 Blood pressure diastolic 81 mm Hg 03/25/2025 Height 64 in 03/25/2025 Blood pressure systolic 132 mm Hg 03/25/2025 Weight 184.4 lbs 03/25/2025 BMI 31.65 kg/m2 03/25/2025 Encounters Encounter Location Date Provider Diagnosis [facility] [place] [address] 04/23/2024 Rashid Palafox Allergic rhinitis du e to pollen J30.1 ; Other allergic rhinitis J30.89 ; Allergic rhinitis due to animal (cat) (dog) hair and dander J30.81 and Other chronic allergic conjunctivitis H10.[address] [place] [address] 05/21/2024 Rashid Palafox Allergic rhinitis du e to pollen J30.1 ; Other allergic rhinitis J30.89 ; Allergic rhinitis due to animal (cat) (dog) hair and dander J30.81 and Other chronic allergic conjunctivitis H10.45 [facility] [address] [place] [address] 08/18/2024 Rashid Palafox Allergic rhinitis du e to pollen J30.1 ; Other allergic rhinitis J30.89 ; Allergic rhinitis due to animal (cat) (dog) hair and dander J30.81 and Other chronic allergic conjunctivitis H10.45 [facility] [address] [place] [address] 10/01/2024 Rashid Palafox Allergic rhinitis du e to pollen J30.1 ; Other allergic rhinitis J30.89 ; Allergic rhinitis due to animal (cat) (dog) hair and dander J30.81 and Other chronic allergic conjunctivitis H10.45 [facility] [address] [place] [address] 10/15/2024 Zackery Ho Allergic rhinitis du e to pollen J30.1 ; Allergic rhinitis due to animal (cat) (dog) hair and dander J30.81 ; Other allergic rhinitis J30.89 ; Other chronic allergic conjunctivitis H10.45 ; Rash and other nonspecific skin eruption R21 and Elevated blood-pressure reading, without diagnosis of hypertension R03.0 [facility] [place] [address] [place] [address] 10/22/2024 Rashid Palafox Allergic rhinitis du e to pollen J30.1 ; Other allergic rhinitis J30.89 ; Allergic rhinitis due to animal (cat) (dog) hair and dander J30.81 and Other chronic allergic conjunctivitis H10.45 [facility] [place] [address] [place] [address] 10/29/2024 Rashid Palafox Allergic rhinitis du e to pollen J30.1 ; Other allergic rhinitis J30.89 ; Allergic rhinitis due to animal (cat) (dog) hair and dander J30.81 and Other chronic allergic conjunctivitis H10.45 [facility] [place] [address] [place] [address] 11/26/2024 Rashid Palafox Allergic rhinitis du e to pollen J30.1 ; Other allergic rhinitis J30.89 ; Allergic rhinitis due to animal (cat) (dog) hair and dander J30.81 and Other chronic allergic conjunctivitis H10.45 [facility] [address] [place] [address] 12/30/2024 Rashid Palafox Allergic rhinitis du e to pollen J30.1 ; Other allergic rhinitis J30.89 ; Allergic rhinitis due to animal (cat) (dog) hair and dander J30.81 and Other chronic allergic conjunctivitis H10.45 [facility] [address] [place] [address] 01/27/2025 Rashid Palafox Allergic rhinitis du e to pollen J30.1 ; Other allergic rhinitis J30.89 ; Allergic rhinitis due to animal (cat) (dog) hair and dander J30.81 and Other chronic allergic conjunctivitis H10.45 [facility] [place] [address] [place] [address] 02/24/2025 Rashid Palafox Allergic rhinitis du e to pollen J30.1 ; Other allergic rhinitis J30.89 ; Allergic rhinitis due to animal (cat) (dog) hair and dander J30.81 and Other chronic allergic conjunctivitis H10.45 [facility] [address] [place] [address] 03/25/2025 Anita Vela Allergic rhinitis du e to pollen J30.1 ; Allergic rhinitis due to animal (cat) (dog) hair and dander J30.81 ; Other allergic rhinitis J30.89 ; Other chronic allergic conjunctivitis H10.45 ; Rash and other nonspecific skin eruption R21 and Elevated blood-pressure reading, without diagnosis of hypertension R03.0 Assessments Encounter Date Diagnosis (ICD Code) Assessment Notes Treatment Notes Treatment Clinical Notes Section Notes 04/23/2024 Allergic rhinitis due to pollen (ICD-10 [...] rhinitis due to pollen (ICD-10 - J30.1) 03/25/2025 Allergic rhinitis due to pollen (ICD-10 - J30.1) Armida clearly suffers from atopic disease based upon our skin testing and clinical history. Accordingly, we have encouraged her medication regimen, discussed nasal washes and allergy-specific avoidance measures. - Procedure tolerated today without large local or systemic reaction. Keep AIE on hand 2 hours after each SCIT visit. - Armida reports significant symptom improvement since starting SCIT. She is no longer taking regular antihistamines or nasal sprays. - Armida has been on MM since 03/2022, nearly three years. Discussed stopping SCIT today, Armida is to use current vials until there are 1-2 doses remaining, then trial holding SCIT. Encouraged close monitoring of symptoms to assess if SCIT should be restarted. She voiced understanding. - Return in 6 months for further evaluation and management 03/25/2025 Allergic rhinitis due to animal (cat) (dog) hair and dander (ICD-10 - J30.81) Follow allergen avoidance, meds and continue SCIT as an adjunctive treatment to current regimen 03/25/2025 Other allergic rhinitis (ICD-10 - J30.89) Follow allergen avoidance, meds and continue SCIT as an adjunctive treatment to current regimen 02/24/2025 Other allergic rhinitis (ICD-10 - J30.89) [...] 04/23/2024 Other allergic rhinitis (ICD-10 - J30.89) 04/23/2024 Allergic rhinitis due to animal (cat) (dog) hair and dander (ICD-10 - J30.81) 05/21/2024 Allergic rhinitis due to animal (cat) [...] persist, consider adding additional medications including intraocular antihistamine/mast cell stabilizer, PRN and continue SCIT as [...] (dog) hair and dander (ICD-10 - J30.81) 03/25/2025 Other chronic allergic conjunctivitis (ICD-10 - H10.45) Given ocular signs and symptoms I encouraged allergy avoidance measures and meds as above. If symptoms persist, consider adding additional medications including intraocular antihistamine/mast cell stabilizer, PRN and continue SCIT as an adjunctive measure 03/25/2025 Rash and other nonspecific skin eruption (ICD-10 - R21) Noted history of atopic dermatitis, generally to the arms and neck. Will typically treat with topical steroids per PCP. Last occurred 3 years ago. Continue to monitor 10/22/2024 Other chronic allergic conjunctivitis (ICD-10 - [...] chronic allergic conjunctivitis (ICD-10 - H10.45) 10/15/2024 Elevated blood-pressure reading, without diagnosis of hypertension (ICD-10 - R03.0) BP elevated today without symptoms of urgency or emergency. Continue serial checks and follow-up with PCP 03/25/2025 Elevated blood-pressure reading, without diagnosis of hypertension (ICD-10 - R03.0) BP elevated today without symptoms of urgency or emergency. Continue serial checks and follow-up with PCP Plan Of Treatment Next Appt Details Provider Name:Rsahid Palafox , 04/22/2025 03:30:00 PM, [address] [place] [address], [phone], Insurance Providers Payer Name Payer Address Payer Phone Subscriber Number Group Number Insured Name Patient Relationship to Insured Coverage Start Date Coverage End Date [facility] [address] [place] [address] [id number] Armida Davis Self - patient is the [...]
--- OUTSIDE RECORDS SUMMARY | 2025-03-27 01:35 | XMS_ITS | Encounter Summary ---
Author Organization [facility] Address [address] [place] [address] Care Team Providers Care Duralumin Metalworker Name Role Phone Jame Call MD Primary Care Provider [phone] Reason for Referral * Imaging (Urgent) - Closed Specialty Diagnoses / Procedures Referred By Contac t Referred To Contact RADIOLOGY Diagnoses Gross hematuria Flank pain Procedures CT ABD+PEL WO CON Jame Call MD [facility] [place] [address] Phone: tel: fax: Referral ID Status Reason Start Date Expiration Date Visits Re quested Visits Authorized [id number] Closed 01/30/2025 01/30/2026 1 1 Encounter Details Date Type Department Care Team (Late st Contact Info) Description 01/30/2025 Results Follow-Up [facility] Family Medicine [address] [id number] Jame Call MD [address] [place] [address] [phone] A1C (BACK OFFICE), URINALYSIS AUTO DIP, URINE [...] Sex Assigned at Female 10/10/2024 3:28 PM LIBRARY ACQUISITIONS TECHNICIAN Legal Sex Female 8:27 PM CDT Gender Identity Female 11/06/2024 2:42 PM LIBRARY ACQUISITIONS TECHNICIAN Sexual Orientation Not on file documented as [...] feel free to call the office at [phone]. Have a blessed day, ~Dr Call documented in this encounter Plan of Treatment Upcoming Encounters Date Type Department Care Team (Late st Contact Info) Description 04/27/2025 2:40 PM CDT Office Visit [facility] Family [facility] [address] [place] [address] Jame Call MD [address] [place] [address] documented as of this encounter Results * [...] 9:30 PM Narrative 02/06/2025 9:53 PM CDT [address] [address] Examination: CT abdomen and pelvis without IV [...] Procedure Note Abelardo Mcallister MD - 02/06/[address] [address] Examination: CT abdomen and pelvis without IV [...] documented as of this encounter Care Teams Duralumin Metalworker Relationship Specialty Start Date End Date Jame Call MD [facility] [place] [address] PCP - General FAMILY PRACTICE 08/21/18 documented as of this encounter
--- OUTSIDE RECORDS SUMMARY | 2025-03-27 01:35 | XMS_ITS | Data Portability ---
Author Organization [facility] Address [address] [place] [address] Assessment No assessment recorded. Plan of Treatment Reminders Order Date Submit Date Provider Last Modified By Organization Details Last Modified Time Details Appointments None recorded. Lab HbA1c (hemoglobi n A1c), blood 2017 018 [facility] (Lab), [address] [place], [address], 8 15:53:41 hepatitis panel (A+B+C), acute, serum 2017 018 [facility] (Lab), [address] [facility], [place], [address], 8 15:53:41 CMP, serum or plasma 2017 018 [facility] (Lab), [address] [facility], [place], [address], 8 15:53:41 HbA1c (hemoglobi n A1c), blood 2016 017 [facility] [address], [place], [address], 7 06:17:11 CMP, serum or plasma 2016 017 [facility] (Lab), [address], [place], [address], 7 06:17:10 lipid panel w/ direct LDL, serum 2016 017 [facility] (Lab), [address], [place], [address], 7 06:17:11 glucose, fingerstic k, blood 2016 017 [email or web address] In-Office Order, Internal Use Only DO Not Attach Compendium DO Not Attach Compendium, Do Not Delete/merge, [id number] 7 09:38:46 TSH, serum or plasma 2016 017 [facility] (Lab), [address], [place], [address], 7 20:33:48 CBC 2016 017 [facility] (Lab), [address], [place], [address], 7 18:59:07 CMP, serum or plasma 2016 017 [facility] (Lab), [address], [place], [address], 7 20:38:54 HbA1c (hemoglobi n A1c), blood 2016 017 [facility] (Lab), [address], [place], [address], 7 08:29:52 lipid panel w/ direct LDL, serum 2016 017 [facility] (Lab), [address], [place], [address], 7 20:38:34 Referral None recorded. Procedures None recorded. Surgeries None recorded. Imaging None recorded. Medication Orders metformin 500 mg tablet 2017 018 [id number], [address], [place], [place], [id number], 8 15:53:02 atorvastat in 40 mg tablet 2017 018 [facility] #57649, [address], [place], [place], [id number], 8 15:52:48 metformin 500 mg tablet 2016 017 [facility] #56142, [address], [place], [place], [id number], 7 10:53:05 atorvastat in 40 mg tablet 2016 017 [facility] #45330, [address], [place], [place], [id number], 7 10:53:05 atorvastat in 40 mg tablet 2016 017 [facility] #[id number], [address], [place], [place], [id number], 7 11:53:24 metformin 500 mg tablet 2016 017 [facility] #85137, [address], [place], [place], [id number], 7 11:53:30 Patient TargetsNo targets recorded. Patient Instructions Encounter Date Encounter Id Patient Instructions Last Modified By Organization Details Last Modified Time 02/07/2017 [id number] When You Want to Lose Weight: Care Instructions Not available 02/07/2017 12:48:13 learning about type 2 diabetes Not available 02/07/2017 12:48:13 type 2 diabetes: care instructions Not available 02/07/2017 12:48:13 hypothyroidism: care instructions Not available 02/07/2017 12:48:13 high cholesterol : care instructions Not available 02/07/2017 12:48:13 obtain old records hold meds for now. [email or web address] Not available 02/07/2017 12:05:58 03/09/2017 [id number] When You Want to Lose Weight: Care Instructions Not available 03/09/2017 14:09:16 learning about type 2 diabetes Not available 03/09/2017 14:09:15 type 2 diabetes: care instructions Not available 03/09/2017 14:09:16 hypothyroidism: care instructions Not available 03/09/2017 14:09:16 high cholesterol : care instructions Not available 03/09/2017 14:09:16 06/12/2017 [id number] When You Want to Lose Weight: Care Instructions Not available 06/12/2017 11:49:57 hypothyroidism: care instructions Not available 06/12/2017 11:49:57 high cholesterol : care instructions Not available 06/12/2017 11:49:56 refused flu vaccine balbarcha Not available 06/12/2017 10:52:15 12/04/2017 [id number] When You Want to Lose Weight: Care [...] Organization Detail LastModifiedTime 03/09/20 17 03/09/2017 gluco seaury rstic k, blood Blood Glucose: mg/dl 105 Not Available In-Off ice Order Internal Use Only DO Not Attach Compendium DO Not Attach Compendium, Do Not Delete/merge, [id number] 03/09/2017 11:38:35 02/08/20 17 02/07/2017 CBC WBC 6.7 K/uL 3.4-10 .8 Not Available [facility] (Lab) [address] [place], [address], 02/07/2017 18:59:07 02/08/20 17 02/07/2017 CBC red blood count 4.5 M/uL 4.2-5. 4 Not Available [facility] (Lab) [address], [place], [address], 02/07/2017 18:59:07 02/08/20 17 02/07/2017 CBC hemoglobin 13.1 g/dL 11.5-1 5.5 Not Available [facility] (Lab) [address] [place], [address], 02/07/2017 18:59:07 02/08/20 17 02/07/2017 CBC hematocrit 39.8 % 36.0-4 8.0 Not Available [facility] (Lab) [address] [place], [address], 02/07/2017 18:59:07 02/08/20 17 02/07/2017 CBC MCV 88 fL 80-95 Not Available [facility] (Lab) [address] [place], [address], 02/07/2017 18:59:07 02/08/20 17 02/07/2017 CBC MCHC 33 g/dL 32-36 Not Available [facility] (Lab) [address] [place], [address], 02/07/2017 18:59:07 02/08/20 17 02/07/2017 CBC platelets 304 K/uL 155-37 9 Not Available [facility] (Lab) [address] [place], [address], 02/07/2017 18:59:07 02/08/20 17 02/07/2017 CBC RDW 13.4 % 11.5-1 4.5 Not Available [facility] (Lab) [address] [place], [address], 02/07/2017 18:59:07 02/08/20 17 02/07/2017 TSH, serum or plasm a TSH 1.34 uIU/m L 0.50-4 .50 Not Available [facility] (Lab) [address] [place], [address], 02/07/2017 20:33:48 02/08/20 17 02/07/2017 lipid panel w/ direc t LDL, serum cholestrol 313.0 mg/dL 140.0- 200.0 high Not Available [facility] (Lab) [address] [place], [address], 02/07/2017 20:38:34 02/08/20 17 02/07/2017 lipid panel w/ direc t LDL, serum triglyceride s 227 mg/mL 150-19 9 high Not Available [facility] (Lab) [address] [facility], [place], [address], 02/07/2017 20:38:34 02/08/20 17 02/07/2017 lipid panel w/ direc t LDL, serum HDL cholesterol 51.0 mg/dL 40.0-1 00.0 Not Available [facility] (Lab) [address] [facility], [place], [address], 02/07/2017 20:38:34 02/08/20 17 02/07/2017 lipid panel w/ direc t LDL, serum LDL direct 242 mg/dL <=100 high Not Available [facility] (Lab) [address] [place], [address], 02/07/2017 20:38:34 02/08/20 17 02/07/2017 lipid panel w/ direc t LDL, serum cholhdl 6.10 mg/dL 0.00-4 .98 high Not Available [facility] (Lab) [address] [place], [address], 02/07/2017 20:38:34 02/08/20 17 02/07/2017 CMP, serum or plasm a glucose, serum 104 mg/dL 65-99 high Not Available [facility] (Lab) [address] [place], [address], 02/07/2017 20:38:54 02/08/20 17 02/07/2017 CMP, serum or plasm a BUN 9 mg/dL 8-26 Not Available [facility] (Lab) [address] [place], [address], 02/07/2017 20:38:54 02/08/20 17 02/07/2017 CMP, serum or plasm a creatinine, serum 0.60 mg/dL 0.50-1 .40 Not Available [facility] (Lab) [address], [place], [address], 02/07/2017 20:38:54 02/08/20 17 02/07/2017 CMP, serum or plasm a BUN/creatnin e ratio 15.0 Not Available [facility] (Lab) [address], [place], [address], 02/07/2017 20:38:54 02/08/20 17 02/07/2017 CMP, serum or plasm a sodium, serum 140.0 mEq/L 136.0- 144.0 Not Available [facility] (Lab) [address] [place], [address], 02/07/2017 20:38:54 02/08/20 17 02/07/2017 CMP, serum or plasm a potassium, serum 4.3 mmol/ L 3.5-5. 3 Not Available [facility] (Lab) [address] [place], [address], 02/07/2017 20:38:54 02/08/20 17 02/07/2017 CMP, serum or plasm a chloride, serum 100 mmol/ l 101-11 1 low Not Available [facility] (Lab) [address] [place], [address], 02/07/2017 20:38:54 02/08/20 17 02/07/2017 CMP, serum or plasm a carbon dioxide total 23.8 mmol/ L 21.0-3 2.0 Not Available [facility] (Lab) [address] [place], [address], 02/07/2017 20:38:54 02/08/20 17 02/07/2017 CMP, serum or plasm a aniongp 21.0 mmol/ L Not Available [facility] (Lab) [address] [place], [address], 02/07/2017 20:38:54 02/08/20 17 02/07/2017 CMP, serum or plasm a calcium, serum 9.3 mg/dL 8.2-10 .0 Not Available [facility] (Lab) [address] [place], [address], 02/07/2017 20:38:54 02/08/20 17 02/07/2017 CMP, serum or plasm a total protein 7.3 g/dL 6.7-8. 2 Not Available [facility] (Lab) [address] [place], [address], 02/07/2017 20:38:54 02/08/20 17 02/07/2017 CMP, serum or plasm a albumin, serum 4.6 g/dL 3.5-5. 5 Not Available [facility] (Lab) [address] [place], [address], 02/07/2017 20:38:54 02/08/20 17 02/07/2017 CMP, serum or plasm a agratio 1.7 Not Available [facility] (Lab) [address] [place], [address], 02/07/2017 20:38:54 02/08/20 17 02/07/2017 CMP, serum or plasm a bilt 0.6 mg/dL 0.2-1. 0 Not Available [facility] (Lab) [address] [place], [address], 02/07/2017 20:38:54 02/08/20 17 02/07/2017 CMP, serum or plasm a AST 56.0 U/L 10.0-4 2.0 high Not Available [facility] (Lab) [address] [place], [address], 02/07/2017 20:38:54 02/08/20 17 02/07/2017 CMP, serum or plasm a ALT 66.0 U/L 10.0-6 0.0 high Not Available [facility] (Lab) [address] [place], [address], 02/07/2017 20:38:54 02/08/20 17 02/07/2017 CMP, serum or plasm a alk phos 78.0 IU/L 42.0-1 21.0 Not Available [facility] (Lab) [address] [place], [address], 02/07/2017 20:38:54 02/08/20 17 02/07/2017 CMP, serum or plasm a osmol 278.0 mOsm/ L 275.0- 301.0 Not Available [facility] (Lab) [address] [place], [address], 02/07/2017 20:38:54 02/08/20 17 02/07/2017 CMP, serum or plasm a eGFR, AM 140 m/lmi n/1.7 3_m >=60 Not Available [facility] (Lab) [address] [place], [address], 02/07/2017 20:38:54 02/08/20 17 02/07/2017 CMP, serum or plasm a eGFR, non- AM 116 mL/mi n/1.7 3/m >=60 Not Available [facility] (Lab) [address] [facility], [place], [address], 02/07/2017 20:38:54 02/08/20 17 02/08/2017 TSH, serum or plasm a TSH 1.400 uIU/m L 0.450- 4.500 Not Available [facility] (Lab) [address] [place], [address], 02/08/2017 08:27:45 02/08/2002/08/2017 TSH, serum or plasm a T4,free(dire ct) 1.12 NG/dL 0.82-1 .77 Not Available [facility] (Lab) [address] [place], [address], 02/08/2017 08:27:45 02/08/2002/08/2017 HbA1c (hemo globi n A1c), blood hemoglobin A1C 6.8 % 4.8-5. 6 high . Pre-d iabet es: 5.7 - 6.4 Diabe sj: >6.4 Glyce [place] contr ol for adult s with diabe sj: <7.0 Not Available [facility] (Lab) [address], [place], [address], 02/08/2017 08:29:52 06/12/2006/13/2017 CMP, serum or plasm a glucose, serum 106 mg/dL 65-99 above high normal Not Available [facility] ([facility]) [address] [place], [address], 2017 06:17:10 06/12/2006/13/2017 CMP, serum or plasm a BUN 9 mg/dL 6-24 Not Available [facility] ([facility]) [address] [place], [address], 2017 06:17:10 06/12/2006/13/2017 CMP, serum or plasm a creatinine, serum 0.59 mg/dL 0.57-1 .00 Not Available [facility] ([facility]) [address] [place], [address], 2017 06:17:10 06/12/2006/13/2017 CMP, serum or plasm a eGFR if nonafricn AM 112 mL/mi n/1.7 3 >59 Not Available [facility] ([facility]) [address] [place], [address], 2017 06:17:10 06/12/2006/13/2017 CMP, serum or plasm a eGFR if africn AM 129 mL/mi n/1.7 3 >59 Not Available [facility] ([facility]) [address] [place], [address], 2017 06:17:10 06/12/2006/13/2017 CMP, serum or plasm a BUN/creatini ne ratio 15 9-23 Not Available [facility] ([facility]) [address] [place], [address], 2017 06:17:10 06/12/2006/13/2017 CMP, serum or plasm a sodium, serum 139 mmol/ L 134-14 4 Not Available [facility] ([facility]) [address] [place], [address], 2017 06:17:10 06/12/2006/13/2017 CMP, serum or plasm a potassium, serum 4.3 mmol/ L 3.5-5. 2 Not Available [facility] ([facility]) [address] [place], [address], 2017 06:17:10 06/12/2006/13/2017 CMP, serum or plasm a chloride, serum 100 mmol/ L 96-106 Not Available [facility] ([facility]) [address] [place], [address], 2017 06:17:10 06/12/2006/13/2017 CMP, serum or plasm a carbon dioxide, total 22 mmol/ L 18-29 Not Available [facility] ([facility]) [address] [place], [address], 2017 06:17:10 06/12/2006/13/2017 CMP, serum or plasm a calcium, serum 9.3 mg/dL 8.7-10 .2 Not Available [facility] ([facility]) [address] [place], [address], 2017 06:17:10 06/12/2006/13/2017 CMP, serum or plasm a protein, total, serum 7.1 g/dL 6.0-8. 5 Not Available [facility] ([facility]) [address] [place], [address], 2017 06:17:10 06/12/20 17 2017 CMP, serum or plasm a albumin, serum 4.4 g/dL 3.5-5. 5 Not Available [facility] ([facility]) [address] [place], [address], 2017 06:17:10 06/12/2006/13/2017 CMP, serum or plasm a globulin, total 2.7 g/dL 1.5-4. 5 Not Available [facility] ([facility]) [address] [place], [address], 2017 06:17:10 06/12/2006/13/2017 CMP, serum or plasm a A/G ratio 1.6 1.2-2. 2 Not Available [facility] ([facility]) [address] [place], [address], 2017 06:17:10 06/12/2006/13/2017 CMP, serum or plasm a bilirubin, total 0.6 mg/dL 0.0-1. 2 Not Available [facility] ([facility]) [address] [place], [address], 2017 06:17:10 06/12/2006/13/2017 CMP, serum or plasm a alkaline phosphatase, S 86 IU/L 39-117 Not Available [facility] ([facility]) [address] [place], [address], 2017 06:17:10 06/12/2006/13/2017 CMP, serum or plasm a AST (SGOT) 53 IU/L 0-40 above high normal Not Available [facility] ([facility]) [address] [place], [address], 2017 06:17:10 06/12/2006/13/2017 CMP, serum or plasm a ALT (SGPT) 73 IU/L 0-32 above high normal Not Available [facility] ([facility]) [address] [facility], [place], [address], 2017 06:17:10 06/12/20 17 2017 lipid panel , serum cholesterol, total 160 mg/dL 100-19 9 Not Available [facility] ([facility]) [address] [facility] [place], [address], 2017 06:17:11 06/12/20 17 2017 lipid panel , serum triglyceride s 137 mg/dL 0-149 Not Available [facility] ([facility]) [address] [facility], [address], 2017 06:17:11 06/12/2006/13/2017 lipid panel , serum HDL cholesterol 51 mg/dL >39 Not Available [facility] ([facility]) [address] [place], [address], 2017 06:17:11 06/12/20 17 2017 lipid panel , serum VLDL cholesterol gio 27 mg/dL 5-40 Not Available [facility] ([facility]) [address] [place], [address], 2017 06:17:11 06/12/20 17 2017 lipid panel , serum LDL cholesterol calc 82 mg/dL 0-99 Not Available [facility] ([facility]) [address] [place], [address], 2017 06:17:11 06/12/2006/13/2017 lipid panel , serum 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 6 above high normal Pre-d iabet es: 5.7 - 6.4 Diabe sj: >6.4 Glyce [place] contr ol for adult s with diabe sj: <7.0 Not Available [facility] ([facility]) [address] [facility], [place], [address], 2017 06:17:11 Result Notes None recorded. Problems Name Problem SNOMED Code Status Onset Date Resolution Date Notes Provider Name and Address Organization Details Recorded Time Liver enzymes level above reference range 395388159 Active 2017 Rush Lennon MD Attn: Gissell russell,[address] [place], [address], [facility] 8 15:52:02 Obesity 402015340 Active 2016 Rush Lennon MD Attn: Gissell russell,[address] [place], [address], [facility] 7 11:59:17 Hypothyroi dism 77423880 Active 2016 not on meds. not on meds for years Rush Lennon MD Attn: Gissell russell,[address] [place], [address], [facility] 7 11:59:37 Hyperlipid emia 19103746 Active 2016 recently diagnosed Rush Lennon MD Attn: Gissell russell,[address] [place], [address], [facility] 7 11:59:53 Type 2 diabetes mellitus 18963264 Active 2016 new onset / not on meds Rush Lennon MD Attn: Gissell russell,[address] [place], [address], [facility] 7 12:00:10 Problem Notes None recorded. Procedures Surgical History Date Name Laterality Status Provider Name and Address Organization Details Recorded Time Diabetic Foot Exam completed Altagracia Johnson MA [facility] 06/12/2017 10:26:52 Imaging Results None recorded. Procedure [...] Heart rate Respiratory rate Body temperature Systolic And Diastolic Provider Name and Address Organization Details Last Updated DateTime 8 162.56 cm 38.6 kg/m2 737701. 28 g 76 /min 24 /min 98.2 [degF] 110/80 mm[Hg] Altagracia Johnson MA [facility] 8 15:30:11 Date Recorded Body height Body weight Body mass index (BMI) Heart rate Respiratory rate Body temperature Systolic And Diastolic Provider Name and Address Organization Details Last Updated DateTime 7 162.56 cm 317493. 61 g 40.2 kg/m2 76 /min 24 /min 98.1 [degF] 128/80 mm[Hg] Altagracia Johnson MA [facility] 7 11:46:12 Date Recorded Body height Body mass index (BMI) Body weight Heart rate Respiratory rate Body temperature Systolic And Diastolic Provider Name and Address Organization Details Last Updated DateTime 7 162.56 cm 40.9 kg/m2 472995. 98 g 76 /min 24 /min 98.5 [degF] 130/100 mm[Hg] Altagracia Johnson MA [facility] 7 11:36:03 Date Recorded Body height Body mass index (BMI) Body weight Heart rate Respiratory rate Body temperature Systolic And Diastolic Provider Name and Address Organization Details Last Updated DateTime 7 162.56 cm 40.2 kg/m2 365220. 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 None Information not available 02/07/2017 Mental Status None recorded. Family History Nothing Reported. Medical History No medical history recorded. Gynecological HistoryNo gynecological history recorded. Obstetrics History GPAL:G 0 P 0 0 0 0 Past Encounters Encounter ID Performer Location Encounter Start Date Encounter Closed Date Diagnosis/Indication Diagnosis SNOMED-CT Code Diagnosis ICD10 Code Diagnosis Note [id number] Rush Lennon MD [facility] ([facility]) [address] [place] [address] 02/07/2017 11:23:41 02/13/2017 14:29:19 Type 2 diabetes mellitus 98749644 E11.9 newly diagnosedn ot on any meds.obtai n labs today Hyperlipidemia 47693638 E78.5 Hypothyroidism 29349813 E03.9 not on any meds. obtain TSH Obesity 646163524 E66.9 [id number] Rush Lennon MD [facility] (Adult/Fa [facility] Med) [address] [place] [address] 03/09/2017 11:27:15 03/12/2017 14:54:17 Diabetes mellitus 12500075 E11.9 discussed with pt Type 2 tanika betes mellitus 60268933 E11.9 Hyperlipidemia 47043092 E78.5 start Atorvastat in Hypothyroidism 39759041 E03.9 not on any meds. obtain TSH Obesity 372610188 E66.9 [id number] Rush Lennon MD [facility] (Adult/Fa m Med) [address] [place] [address] 06/12/2017 10:05:01 06/20/2017 12:16:02 Hyperlipidemia 12861797 E78.5 continue Atorvastat inlabs today Hypothyroidism 11732928 E03.9 not on any meds.jennifer l TSH Obesity 571604366 E66.9 diet/exerc ise Type 2 tanika betes mellitus 07558982 E11.9 continue meds. [id number] Rush Lennon MD [facility] (Adult/Fa [facility] Med) [address] [place] [address] 12/04/2017 15:21:41 12/06/2017 11:48:54 Type 2 diabetes mellitus 25102908 E11.9 continue meds. Hyperlipidemia 37954262 E78.5 continue Atorvastat inlabs today Obesity 680314464 E66.9 diet/exerc ise Liver enzy mes level above reference range 567110841 R74.8 secondary to Obesity/hy per;lipide estelle or statin. R/O viral.repe at labshepati tis profile Health Concerns Section Related Observation LastModified by Organization Detai ls LastModified Time None Recorded Concern Status LastModified by Organization Details LastModified Time None Recorded Advance Directives Directive N: Payers Insurance Date Sequence Insurance Name Policy Number Policy Ferreira Covered Member ID Ferreira Member ID Guarantor Name 12/01/2017 1 [id number] Armida Davis [id number] Armida Davis Notes Date Note Type Note Provider Name and Address Organization Details Recorded Time 02/07/2017 text/html no complaints Rush Lennon MD Attn: [address] [place], [address], [facility] 02/07/2017 12:06:29 03/09/2017 text/html F/U Rush Lennon MD Attn: [address] [place], [address], [facility] 03/09/2017 11:53:37 06/12/2017 text/html no new complaints Rush Lennon MD Attn: Accounting,[address] [place], [address], [facility] 06/12/2017 10:53:47 12/04/2017 text/html no new complaints Rush Lennon MD Attn: [address]ing,[address] [facility], [place], [address], [facility] 12/04/2017 15:53:03 OBGyn Episode No OBEpisode recorded.
--- OUTSIDE RECORDS SUMMARY | 2025-03-27 01:35 | XMS_ITS | Encounter Summary ---
Author Organization [facility] Address [address] [place] [address] Care Team Providers Care Immigration Specialist Name Role Phone Aicha Cuello MD Primary Care Provider Encounter Details Date Type Department Care Team (Late st Contact Info) Description 07/28/1999 Outpatient Historical [facility] Jayda Telles MD [address] [place] [address] Social History Tobacco Use Types Packs/Day Years Used Date Smoking Tobacco: Never Assessed Comments Unknown Sex and Gender Information Value Date Recorded Sex Assigned at Not on file Legal Sex Female 4:21 AM [employer] Gender Identity Not on file Sexual Orientation Not on file documented as of this encounter Plan of Treatment Not on file documented as of this encounter Visit Diagnoses Not on filedocumented in this encounter Care Teams Immigration Specialist Relationship Specialty Start Date End Date Aicha Cuello MD [address] [place] [phone] PCP - General Family Practice 09/12/19 documented as of this encounter
--- OUTSIDE RECORDS SUMMARY | 2025-03-27 01:35 | XMS_ITS | Encounter Summary ---
Author Organization [facility] Healthcare Address [address] [place] [address] Care Team Providers Care Electric Motor Control Assembler Name Role Phone Sair Cali MD Primary Care Provider Maryam Hilario MD Unavailable [phone] Reason for Visit * Diagnostic Imaging (Routine) - Closed Specialty Diagnoses / Procedures Referred By Renee pablo Referred To Contact Procedures Breast Imaging Screening Outside Reference Referral, Self Referral ID Status Reason Start Date Expiration Date Visits Re quested Visits Authorized [id number] Closed 01/12/2022 02/11/2023 1 1 Encounter Details Date Type Department Care Team (Late st Contact Info) Description 10/11/2018 Hospital Encounter [facility]ly [facility] [place] [address] Social History Tobacco Use Types Packs/Day Years [...] on file Legal Sex Female 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 There will be no report generated by a [facility] Radiologist. Narrative RAD_MAMMO_[facility] - 01/12/2022 10:01 AM CDT EXAMINATION: Images For Reference Purposes Only us Self Referral IMG MAMMO PROCEDURES Final Resul t RAD_MAMMO[facility] documented in this encounter Visit Diagnoses Not on filedocumented in this encounter Additional Health Concerns Infection Onset Date Last Indicated Resolved Time MRSA Comment:Germ watcher auto flagging 07/24/2013 07/24/201305/04 5:00 AM CDT documented as of this encounter Care Teams Electric Motor Control Assembler Relationship Specialty Start Date End Date Sari Cali MD [address] [place] [address] [place] [address] PCP - General 01/15/17 10/14/18 Maryam Muller MD [address] [place] [address] Internal Medicine 02/14/17 10/14/18 documented as of this encounter
--- OUTSIDE RECORDS SUMMARY | 2025-03-27 01:36 | XMS_ITS | Patient Health Record ---
Author Organization [facility] Address [address] [place], [place] [id number] Care Team Providers Care Pantomimist Name Role Phone DIA ORTEGA Unavailable [phone] Aicha Cuello Unavailable Unavailable Allergies No Known [...] Insured Coverage Start Date Coverage End Date [facility] ([facility]) ATTN CLAIMS [address] [place] [address] [id number] ELISABETH BRYAN Self - patient is the insured Medical (General) History Medical History History ICD Code kidney stones Sleep apnea Diabetic
--- OUTSIDE RECORDS SUMMARY | 2025-03-27 01:36 | XMS_ITS | Clinical Summary ---
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 Gender Identity Not on file Sexual Orientation [...] 04/17/20 23, 04/17/2023, 01/09/2022, Additional history exists COVID-19 Vaccine ( - 2023-2 5 season) 2024 06/29/2022, 08/04/2021, 01/25/2021, Additional history exists DIABETES HBA1C Q 6 MONTHS 10/18/20242023, 01/23/2024, 04/02/2020, Additional history exists INFLUENZA VACCINE (#1) 2025 , 04/28/2020, 07/28/2019, Additional history exists COLORECTAL SCREENING 11/27/2028 11/27/2018 Colorectal Cancer Screening 11/27/2028 Medical Devices Implanted Type Area Media Analyst Device Identifier Shelf Expiration Date Model / Serial / Lot Seamguard Endogia 60 Blk [id number] - [id number] Implanted:Qty : 2 on 05/10/2020 by Kacey Russo MD at [facility] N/A: Stomach [employer] 10/29/2022 [id number] / / [id number] Seamguard Endogia 60 Prpl [id number] - [id number] Implanted:Qty : 3 on 05/10/2020 by Kacey Russo MD at [facility] N/A: Abdomen [employer] 11/06/2022 [id number] / / [id number] Water[employer] Checker Endoclip Iii 5mm W/Cliplogic [id number] - [id number] Implanted:Qty : 1 on 05/10/2020 by Kacey Russo MD at [facility] N/A: Abdomen [employer] - COVIDIEN [id number] / / Insurance BCBS FEDERAL RX [facility] [employer] (INTERNAL) [facility] Internal Plans [employer] Advance Directives For more information, please contact: [phone] * Full Code (Latest Code Status on File) Date Activated Date Inactivated Comments 05/10/2020 5:09 PM 05/11/2020 9:25 PM * Full Code Date Activated Date Inactivated Comments 05/10/2020 2:22 PM 05/10/2020 5:09 PM * Full Code Date Activated Date Inactivated Comments 10/20/2019 9:21 AM 10/20/2019 6:27 PM Care Teams Customer Response Representative Relationship Specialty Start Date End Date Aicha Cuello MD [address] [place] [address] PCP - General Family Practice 09/12/19
--- OUTSIDE RECORDS SUMMARY | 2025-03-27 01:36 | XMS_ITS | Continuity of Care Document ---
Author Name [facility] Organization [facility] Care Team Providers Care Mainframe Analyst Name Role Phone [facility] Unavailable Unavailable Problems Combined list of problems [...] Need For Vaccination Hepatitis B Inactive Condition [facility] MENORRHAGIA Active Condition [facility] visit for: screening exam for malignant neoplasm cervix Active Condition [facility] ROUTINE PELVIC EXAM Inactive Condition [facility] HYPERLIPIDEMIA Active Condition [facility] DYSMENORRHEA Active Condition [facility] visit for: administrative purpose Active Condition DoD ABNORMAL WEIGHT GAIN Active Condition DoD ankle joint pain Active Condition DoD Anxiety ([facility] [id number]) Active Condition [facility] Contraception Active Condition [facility] Diabetes Mellitus Type 2 ([facility] [id number]) Active Condition [facility] Hyperlipidemia ([facility] [id number]) Active Condition [facility] Hypothyroidism ([facility] [id number]) Active Condition [facility] NKA Active Condition [facility] Obstructive Sleep Apnea of Adult ([facility] [id number]) Active Condition [facility] Recurrent depression Active Condition 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 Urinary Tract Infections Active Condition [facility] Diagnosis: ICD-10-CM Z71.89 Other specified counseling Active Diagnosis [facility] Diagnosis: ICD-10-CM E11.9 Type 2 diabetes mellitus without complications Active Diagnosis [facility] Diagnosis: ICD-10-CM G56.00 Carpal tunnel syndrome, unspecified upper limb Active Diagnosis [facility] Diagnosis: ICD-10-CM G56.01 Carpal tunnel syndrome, right upper limb Active Diagnosis [facility] Diagnosis: ICD-10-CM Z01.818 Encounter for other preprocedural examination Active Diagnosis 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 Diagnosis: ICD-10-CM Z11.52 Encounter for screening for COVID-[address] [facility] Diagnosis: ICD-10-CM Z04.89 Encounter for examination and observation for oth reasons Active Diagnosis [facility] Diagnosis: ICD-10-CM F34.1 Dysthymic disorder Active Diagnosis [facility] Diagnosis: ICD-10-CM F43.20 Adjustment disorder, unspecified Active Diagnosis [facility] Medications Combined list of outpatient medications from [...] CRUSH OR CHEW. ORAL SUSPEND ED 03/03/2026 [id number] 5 MARY,NI I 2024 90 [facility] BUPROPION HCL 300MG 24HR TAB,SA TAKE ONE TABLET BY MOUTH ONCE A DAY FOR DEPRESSI ON SWALLO W WHOLE - DO NOT CRUSH OR CHEW. ORAL DISCONT INUED 01/10/2025 [id number] 5 MARY,NI I 2023 90 [facility] BUPROPION HCL 300MG 24HR TAB,SA TAKE ONE TABLET BY MOUTH ONCE A DAY ORAL ACTIVE MARY,NI [facility] 2023 [facility] buPROPion HCl XL 300 MG ORAL TB24 TAKE ONE TABLET BY MOUTH ONCE A DAY FOR DEPRESSI ON SWALLO W WHOLE - DO NOT CRUSH OR CHEW. 01/10/2025 [id number] 4 MARY, ANN-MARIE 2023 90 [facility] CHOLECALCIF COLTON (LOW DOSE VIT D) - (OTC) TAB TAKE 125 BY MOUTH ONCE A DAY ORAL ACTIVE MARY,NI [facility] 2023 [facility] CRESTOR (BRAND) 20 MG ORAL TAB TAKE ONE-HALF TABLET BY MOUTH EVERY EVENING FOR HIGH CHOLESTE ROL 01/10/2025 [id number] 4 MARY, ANN-MARIE 2023 45 [facility] DOCUSATE (U/D) 100 MG ORAL CAP TAKE ONE CAPSULE BY MOUTH TWICE DAILY NEEDED FOR SOFTENIN G STOOL HOLD FOR LOOSE STOOL/DI ARRHEA. 01/10/2025 [id number] 4 MARY, [facility] 2023 200 [facility] DOCUSATE NA 100MG CAP TAKE ONE CAPSULE BY MOUTH TWICE DAILY NEEDED FOR SOFTENIN G STOOL HOLD FOR LOOSE STOOL/DI ARRHEA. ORAL 01/10/2025 [id number] 4 MARY,NI [facility] 2023 200 [facility] EPINEPHRINE (EQV-ADRENA CLICK) 0.3MG/0.3ML INJECTOR INJECT 1 PEN (0.3MG/0 .3ML) INTRAMUS CULARLY ONE-TIME FOR ALLERGIC REACTION INTRAM USCULA R 01/10/2025 [id number] 5 LUIZA HERNANDEZ [facility] 2023 2 [facility] Epinephrine 1mg/mL, Injection, 0.3 mL Auto-Inject or INJECT 1 PEN (0.3MG/0 .3ML) INTRAMUS CULARLY ONE-TIME FOR ALLERGIC REACTION 01/10/2025 [id number] 4 MARY, [facility] 2023 2 [facility] ezetimibe (U/D) 10 MG ORAL TAB TAKE ONE TABLET BY MOUTH ONCE A DAY FOR HIGH CHOLESTE ROL 01/10/2025 [id number] 4 MARY, ANN-MARIE 2023 90 [facility] EZETIMIBE 10MG TAB TAKE ONE TABLET BY MOUTH ONCE A DAY FOR HIGH CHOLESTE ROL ORAL ACTIVE 03/20/2026 [id number] 5 MARY,NI [facility] 2024 90 [facility] EZETIMIBE 10MG TAB TAKE ONE TABLET BY MOUTH ONCE A DAY FOR HIGH CHOLESTE ROL ORAL 01/10/2025 [id number] 5 MARY,NI I 2023 90 [facility] EZETIMIBE 10MG TAB TAKE ONE TABLET BY MOUTH ONCE A DAY ORAL ACTIVE MARY,NI I 2023 [facility] FEXOFENADIN E HCL 180MG TAB TAKE ONE TABLET BY MOUTH EACH MORNING NEEDED FOR ALLERGIE S ORAL 04/09/2024 [id number] 4 MARY,NI I 2023 90 [facility] HYDROCODONE 7.5MG/ACETA MINOPHEN 325MG TAB TAKE 1 TABLET BY MOUTH EVERY 6 HOURS NEEDED FOR POST-OPE RATIVE PAIN CAUTION: DO NOT EXCEED 4000MG PER DAY ACETAMIN OPHEN (APAP) FROM ALL MEDS. ORAL 01/23/2025 [id number] 5 MATTIE FRIED RISTOPHER D 2024 20 [facility] Ibuprofen (Motrin) Tablet 800 mg Oral TAKE ONE TABLET BY MOUTH TWICE DAILY NEEDED FOR PAIN TAKE WITH FOOD 02/24/2024 [id number] ANN-MARIE HERNANDEZ 2023 90 [facility] IBUPROFEN 800MG TAB TAKE ONE TABLET BY MOUTH TWICE DAILY NEEDED FOR PAIN TAKE WITH FOOD ORAL 02/24/2024 [id number] 4 MARY,NI I 2023 90 [facility] NAPROXEN 500MG TAB TAKE ONE TABLET BY MOUTH TWICE A DAY FOR PAIN TAKE WITH FOOD. ORAL 11/27/2024 [id number] 5 MARY,NI I 2024 180 [facility] ROSUVASTATI N CA 20MG TAB TAKE ONE-HALF TABLET BY MOUTH EVERY EVENING FOR HIGH CHOLESTE ROL ORAL 01/10/2025 [id number] 4 MARY,NI [facility] 2023 45 [facility] ROSUVASTATI N CA 20MG TAB TAKE ONE-HALF TABLET BY MOUTH EVERY EVENING ORAL ACTIVE MARY,NI [facility] 2023 [facility] SEMAGLUTIDE (PA-F) INJ,SOLN INJECT 2MG UNDER THE SKIN EVERY WEEK SUBCUT ANEOUS ACTIVE MARY,NI [facility] 2024 [facility] Fexofenadin e Hydrochlori de (Telfast) Tablet 180 mg Oral TAKE ONE TABLET BY MOUTH EACH MORNING NEEDED FOR ALLERGIE S 04/09/2024 [id number] 4 MARY, ANN-MARIE 2023 90 [facility] Allergies, Adverse Reactions, Alerts Combined list of allergies from Department of Defense and Veterans Affairs facilities. It does not include entries that were removed or entered in error. Substance Category Reaction Severity Reaction type Status Date Reported Comments Source No Known Allergies Drug allergy (disorder) active 04/30/2018 [employer] Damien EVANS ([facility]) Immunizations Combined list of available immunizations from the Department of Defense and Veterans Affairs facilities. Immunization Series Date Given Administered By Site Reaction Lot Number CVX Code Drug Evp Global Product Leadership Status Comments Source INFLUENZA, UNSPECIFIED FORMULATION 2024 88 complet ed HISTORICA L INFORMATI ON - FROM PATIENT'S RECALL, states received at [facility] varicella virus vaccine 2 2016 [id number] Merck (MSD) complet ed varicella virus vaccine DoD Influenza, seasonal, injectable, preservative free 1 2016 [id number] Seqirus (SEQ) comple t ed Influenza , seasonal, injectabl e, preservat mary lou free DoD Influenza, seasonal, injectable, preservative free 1 2015 [id number] Seqirus (SEQ) comple t ed Influenza , seasonal, injectabl e, preservat mary lou free [facility] measles, mumps and rubella virus vaccine 2 2014 [id number] 03 Merck (MSD) complet ed measles, mumps and rubella virus vaccine DoD varicella virus vaccine 1 2014 [id number] Merck (MSD) complet ed varicella virus vaccine DoD Influenza, seasonal, injectable 1 2014 [id number] 141 Novartis Pharmaceutica l Kenzie. (NOV) complet ed Influenza , seasonal, injectabl e DoD Influenza, injectable, quadrivalent, preservative free 1 2013 [id number] 150 [facility] (SKB) complet ed Influenza , injectabl e, quadrival ent, preservat mary lou free DoD Influenza, seasonal, injectable, preservative free 1 2012 [id number] 140 Novartis Pharmaceutica l Kenzie. (NOV) complet ed Influenza , seasonal, injectabl e, preservat mary lou free DoD Influenza, seasonal, injectable, preservative free 1 2011 [id number] 140 [employer]. (CS) complet ed Influenza , seasonal, injectabl e, preservat mary lou free DoD influenza virus vaccine, unspecified formulation 1 2010 [id number] 88 Novartis Physicians Formulatica l Kenzie. (NOV) complet ed influenza virus vaccine, unspecifi ed formulati on DoD hepatitis B vaccine, adult dosage 3 2010 GAURANGBRITTANIEA [id number] 43 Smithine (SKB) complet ed hepatitis B vaccine, adult dosage DoD influenza virus vaccine, live, attenuated, for intranasal use 1 2009 [id number] 111 Affinity. (MED) complet ed influenza virus vaccine, live, attenuate d, for intranasa l use DoD hepatitis B vaccine, adult dosage 2 2009 JARET THOMAS [id number] 43 SmithKline (SKB) complet ed hepatitis B vaccine, adult dosage DoD hepatitis B vaccine, adult dosage 1 2009 [id number] 43 Smithine (SKB) complet ed hepatitis B vaccine, adult dosage DoD tetanus toxoid, reduced diphtheria toxoid, and acellular pertu is vaccine, adsorbed 1 2009 [id number] 115 SmithKline (SKB) complet ed tetanus toxoid, reduced diphtheri a toxoid, and acellular pertussis vaccine, adsorbed DoD Novel influenza-H1N 1-09, injectable 1 2009 [id number] 127 Novartis Buru Buru. (NOV) complet ed Novel influenza -L4I3-75, injectabl e DoD influenza virus vaccine, split virus (incl. purified surface antigen)-reti red CODE 1 2008 [id number] 15 [employer]a, [employer]. (CS) complet ed influenza virus vaccine, split virus (incl. purified surface antigen)- retired CODE DoD influenza virus vaccine, split virus (incl. 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 purified surface antigen)- retired CODE DoD influenza virus vaccine, split virus (incl. purified surface antigen)-reti red CODE 1 2006 [id number] 15 [employer] ([facility]) complet ed influenza virus vaccine, split virus (incl. purified surface antigen)- retired CODE DoD influenza virus vaccine, split virus (incl. purified surface antigen)-reti red CODE 1 2006 [id number] 15 [employer] ([facility]) complet ed influenza virus vaccine, split virus (incl. purified surface antigen)- retired CODE DoD hepatitis A vaccine, adult dosage 2 2003 [id number] 52 [employer] ([facility]) complet ed hepatitis [...] CODE 1 2003 UNK 15 Sanofi Pasteur (PMC) complet ed influenza virus vaccine, split virus [...] adenoviru s vaccine, type 4, live, oral [facility] adenovirus vaccine, type 7, live, oral 1 1990 UNK 55 Unknown (UNK) comple t ed adenoviru s vaccine, type 7, live, oral [facility] Results Combined list of recent chemistry, hematology and other laboratory results from Department of Defense and Veterans Affairs, ranging from 15 months to all on record, depending upon the facility. Order Name Results Value Reference Range Date Interpretation Specimen Comments Source MICRAL/C REAT PROFILE (STL) ALBUMIN [MASS/VOLU ME] IN URINE 14.0 mg/L 03/17 Specimen Type: URINE No comment entered. Ordering Provider: BG HERNANDEZ I Report Released Date/Time: Mar 11, 2025 02:26 PM Reporting Lab: [facility] [address] [facility] [address] Performing Lab: [facility] [address] [place] [phone] [place] [address] MICRAL/C REAT PROFILE (STL) ALBUMIN/CR EATININE [MASS RATIO] IN URINE 8 mg/g 0 - 29 03/17 Specimen Type: URINE No comment entered. Ordering Provider: BG HERNANDEZ I Report Released Date/Time: Mar 11, 2025 02:26 PM Reporting Lab: [facility] [address] [place] [phone] Performing Lab: [facility] [address] [place] [address] MICRAL/C REAT PROFILE (STL) CREATININE [MASS/VOLU ME] IN URINE 177.8 mg/dL 47 - 110 03/17 H Specimen Type: URINE No comment entered. Ordering Provider: BG HERNANDEZ I Report Released Date/Time: Mar 11, 2025 02:26 PM Reporting Lab: [facility] [address] [facility] [address] Performing Lab: [facility] [address] [place], [place] [phone] [place] [address] HGA1C HEMOGLOBIN A1C/HEMOGL OBIN.TOTAL IN BLOOD 6.0 4.0 - 6.0 03/17 Specimen Type: BLOOD No comment entered. Ordering Provider: BG HERNANDEZ I Report Released Date/Time: Mar 11, 2025 02:26 PM Reporting Lab: [facility] [address] [place] [phone] Performing Lab: [facility] [address] [place] [phone] [place] [address] TSH (MA-PB) THYROTROPI N [UNITS/VOL UME] IN SERUM OR PLASMA 1.301 u[IU]/mL 0.47 - 5 03/17 Specimen Type: SERUM No comment entered. Ordering Provider: BG HERNANDEZ I Report Released Date/Time: Mar 11, 2025 02:26 PM Reporting Lab: [facility] [address] [facility] [phone] Performing Lab: [facility] [address] [facility] [phone] [facility] LIPID PANEL (STL) CHOLESTERO L [MASS/VOLU ME] IN SERUM OR PLASMA 128 mg/dL 0 - 200 03/17 Specimen Type: PLASMA Comment: No hemolysis noted. Ordering Provider: BG HERNANDEZ I Report Released Date/Time: Mar 11, 2025 02:26 PM Reporting Lab: [facility] [address] [facility] [phone] Performing Lab: [facility] [address] [place] [phone] [facility] LIPID PANEL (STL) TRIGLYCERI DE [MASS/VOLU ME] IN SERUM OR PLASMA 77 mg/dL 0 - 150 03/17 Specimen Type: PLASMA Comment: No hemolysis noted. Ordering Provider: BG HERNANDEZ I Report Released Date/Time: Mar 11, 2025 02:26 PM Reporting Lab: [facility] [address] [place] [phone] Performing Lab: [facility] [address] [place] [phone] [facility] LIPID PANEL (STL) CHOLESTERO L IN LDL [MASS/VOLU ME] IN SERUM OR PLASMA BY CALCULATIO N 61 mg/dL 03/17 Specimen Type: PLASMA Comment: No hemolysis noted. Ordering Provider: BG HERNANDEZ I Report Released Date/Time: Mar 11, 2025 02:26 PM Reporting Lab: [facility] [address] [place] [phone] Performing Lab: [facility] [address] [place] [phone] [facility] LIPID PANEL (STL) CHOLESTERO L IN HDL [MASS/VOLU ME] IN SERUM OR PLASMA 52 mg/dL 40 03/17 Specimen Type: PLASMA Comment: No hemolysis noted. Ordering Provider: MARY,NIDH I Report Released Date/Time: Mar 11, 2025 02:26 PM Reporting Lab: [facility] [address] [facility] [phone] Performing Lab: [facility] [address] [facility] [phone] [facility] COMPREHE NSIVE METABOLI C PANEL CREATININE [MASS/VOLU ME] IN SERUM OR PLASMA 1.19 mg/dL 0.6 - 1.1 03/17 H Specimen Type: PLASMA Comment: No hemolysis noted. Ordering Provider: BG HERNANDEZ I Report Released Date/Time: Mar 11, 2025 02:26 PM Reporting Lab: [facility] [address] [place] [phone] Performing Lab: [facility] [address] [place] [phone] [place] [address] COMPREHE NSIVE METABOLI C PANEL UREA NITROGEN [MASS/VOLU ME] IN SERUM OR PLASMA 15.3 mg/dL 9.0 - 25.0 03/17 Specimen Type: PLASMA Comment: No hemolysis noted. Ordering Provider: BG HERNANDEZ I Report Released Date/Time: Mar 11, 2025 02:26 PM Reporting Lab: [facility] [address] [place] [phone] Performing Lab: [facility] [address] [place] [phone] [facility] COMPREHE NSIVE METABOLI C PANEL GLUCOSE [MASS/VOLU ME] IN SERUM OR PLASMA 80 mg/dL 72 - 99 03/17 Specimen Type: PLASMA Comment: No hemolysis noted. Ordering Provider: BG HERNANDEZ I Report Released Date/Time: Mar 11, 2025 02:26 PM Reporting Lab: [facility] [address] [place] [phone] Performing Lab: [facility] [address] [place] [phone] [facility] COMPREHE NSIVE METABOLI C PANEL SODIUM [MOLES/VOL UME] IN SERUM OR PLASMA 139 meq/L 136 - 145 03/17 Specimen Type: PLASMA Comment: No hemolysis noted. Ordering Provider: BG HERNANDEZ I Report Released Date/Time: Mar 11, 2025 02:26 PM Reporting Lab: [facility] [address] [facility] [phone] Performing Lab: [facility] [address] [place] [phone] [facility] COMPREHE NSIVE METABOLI C PANEL POTASSIUM [MOLES/VOL UME] IN SERUM OR PLASMA 3.7 meq/L 3.5 - 5 03/17 Specimen Type: PLASMA Comment: No hemolysis noted. Ordering Provider: BG HERNANDEZ I Report Released Date/Time: Mar 11, 2025 02:26 PM Reporting Lab: [facility] [address] [place] [phone] Performing Lab: [facility] [address] [place] [phone] [facility] COMPREHE NSIVE METABOLI C PANEL CHLORIDE [MOLES/VOL UME] IN SERUM OR PLASMA 106 meq/L 98 - 107 03/17 Specimen Type: PLASMA Comment: No hemolysis noted. Ordering Provider: BG HERNANDEZ I Report Released Date/Time: Mar 11, 2025 02:26 PM Reporting Lab: [facility] [address] [place] [phone] Performing Lab: [facility] [address] [place] [phone] [facility] COMPREHE NSIVE METABOLI C PANEL CARBON DIOXIDE, TOTAL [MOLES/VOL UME] IN SERUM OR PLASMA 28 meq/L 22 - 31 03/17 Specimen Type: PLASMA Comment: No hemolysis noted. Ordering Provider: BG HERNANDEZ I Report Released Date/Time: Mar 11, 2025 02:26 PM Reporting Lab: [facility] [address] [facility] [phone] Performing Lab: [facility] [address] [place] [phone] [facility] COMPREHE NSIVE METABOLI C PANEL CALCIUM [MASS/VOLU ME] IN SERUM OR PLASMA 9.3 mg/dL 8.4 - 10.4 03/17 Specimen Type: PLASMA Comment: No hemolysis noted. Ordering Provider: BG HERNANDEZ I Report Released Date/Time: Mar 11, 2025 02:26 PM Reporting Lab: [facility] [address] [place] [phone] Performing Lab: [address] [phone] [place] [address] COMPREHE NSIVE METABOLI C PANEL PROTEIN [MASS/VOLU ME] IN SERUM OR PLASMA 7.4 g/dL 6 - 8.6 03/17 Specimen Type: PLASMA Comment: No hemolysis noted. Ordering Provider: BG HERNANDEZ I Report Released Date/Time: Mar 11, 2025 02:26 PM Reporting Lab: [address] [phone] Performing Lab: [address] [phone] [facility] COMPREHE NSIVE METABOLI C PANEL ALBUMIN [MASS/VOLU ME] IN SERUM OR PLASMA 4.1 g/dL 3.4 - 5 03/17 Specimen Type: PLASMA Comment: No hemolysis noted. Ordering Provider: BG HERNANDEZ I Report Released Date/Time: Mar 11, 2025 02:26 PM Reporting Lab: [address] [phone] Performing Lab: [address] [phone] [facility] COMPREHE NSIVE METABOLI C PANEL BILIRUBIN. TOTAL [MASS/VOLU ME] IN SERUM OR PLASMA 0.5 mg/dL 0.2 - 1.2 03/17 Specimen Type: PLASMA Comment: No hemolysis noted. Ordering Provider: BG HERNANDEZ I Report Released Date/Time: Mar 11, 2025 02:26 PM Reporting Lab: [address] [address] Performing Lab: [address] [place] [address] [facility] COMPREHE NSIVE METABOLI C PANEL ALKALINE PHOSPHATAS E [ENZYMATIC ACTIVITY/V OLUME] IN SERUM OR PLASMA 83 U/L 40 - 150 03/17 Specimen Type: PLASMA Comment: No hemolysis noted. Ordering Provider: BG HERNANDEZ I Report Released Date/Time: Mar 11, 2025 02:26 PM Reporting Lab: [address] [address] Performing Lab: [address] [phone] [facility] COMPREHE NSIVE METABOLI C PANEL ASPARTATE AMINOTRANS FERASE [ENZYMATIC ACTIVITY/V OLUME] IN SERUM OR PLASMA 29 U/L 5 - 34 03/17 Specimen Type: PLASMA Comment: No hemolysis noted. Ordering Provider: BG HERNANDEZ I Report Released Date/Time: Mar 11, 2025 02:26 PM Reporting Lab: [address] [address] Performing Lab: [address] [address] [facility] COMPREHE NSIVE METABOLI C PANEL ALANINE AMINOTRANS FERASE [ENZYMATIC ACTIVITY/V OLUME] IN SERUM OR PLASMA 22 U/L 8 - 40 03/17 Specimen Type: PLASMA Comment: No hemolysis noted. Ordering Provider: BG HERNANDEZ I Report Released Date/Time: Mar 11, 2025 02:26 PM Reporting Lab: [facility] [address] [place] [phone] Performing Lab: [address] [phone] [facility] COMPREHE NSIVE METABOLI C PANEL GLOMERULAR FILTRATION RATE/1.73 SQ M.PREDICTE D [VOLUME RATE/AREA] IN SERUM, PLASMA OR BLOOD BY CREATININE -BASED FORMULA (CKD-EPI 2020) 55.0 60 03/17 Specimen Type: PLASMA Comment: No hemolysis noted. Ordering Provider: BG HERNANDEZ I Report Released Date/Time: Mar 11, 2025 02:26 PM Reporting Lab: [place] [address] [place] [address] Performing Lab: [address] VITAMIN D, 25-HYDRO XY 25-HYDROXY VITAMIN D3 [MASS/VOLU ME] IN SERUM OR PLASMA 88.4 ng/mL 30 - 96 03/17 Specimen Type: SERUM No comment entered. Ordering Provider: BG HERNANDEZ I Report Released Date/Time: Mar 11, 2025 02:26 PM Reporting Lab: [place] [address] Performing Lab: [address] GLUCOSE, BLOOD-po ct (STL) GLUCOSE [MASS/VOLU ME] IN BLOOD BY AUTOMATED TEST STRIP 83 mg/dL 72 - 99 12/24 Specimen Type: BLOOD Comment: Test Performed by: [id number] Meter #: [id number] Ordering Provider: BG HERNANDEZ I Report Released Date/Time: Dec 24, 2024 11:01 AM Reporting Lab: [place] [address] Performing Lab: [address] COVID-19 DIAGNOST IC (FLU/RSV )(STL) INFLUENZA VIRUS [...] Dec 23, 2024 02:34 PM Reporting Lab: [place] [address] [address] [facility] [address] Performing Lab: [place] [address] [facility] [phone] [place] [address] COVID-19 DIAGNOST IC (FLU/RSV )([facility]) INFLUENZA B NEG 12/23 Specimen Type: NASOPHARYNX [...] Dec 23, 2024 02:34 PM Reporting Lab: [place] [address] [facility] [address] Performing Lab: [address] [phone] [place] [address] COVID-19 DIAGNOST IC (FLU/RSV )([facility]) SARS-COV-2 (COVID-19) RNA [PRESENCE] IN RESPIRATOR Y [...] Dec 23, 2024 02:34 PM Reporting Lab: [place] [address] [facility] [address] Performing Lab: [address] [address] [facility] COVID-19 DIAGNOST IC (FLU/RSV )([facility]) RESPIRATOR Y SYNCYTIAL VIRUS RNA [PRESENCE] IN [...] Dec 23, 2024 02:34 PM Reporting Lab: [address] [address] Performing Lab: [address] [address] [facility] CBC LEUKOCYTES [#/VOLUME] IN BLOOD BY AUTOMATED COUNT 5.5 10*3/uL 3.6 - 11.2 12/16 Specimen Type: BLOOD No comment entered. Ordering Provider: PRATIBHA FRIED Report Released Date/Time: Nov 19, 2024 08:50 AM Reporting Lab: [address] [address] Performing Lab: [address] [address] [facility] CBC ERYTHROCYT ES [#/VOLUME] IN BLOOD BY AUTOMATED COUNT 4.07 10*6/uL 3.60 - 5.00 12/16 Specimen Type: BLOOD No comment entered. Ordering Provider: PRATIBHA FRIED Report Released Date/Time: Nov 19, 2024 08:50 AM Reporting Lab: [address] [address] Performing Lab: [facility] [address] [place] [address] [facility] CBC HEMOGLOBIN [MASS/VOLU ME] IN BLOOD 11.4 g/dL 11.0 - 14.9 12/16 Specimen Type: BLOOD No comment entered. Ordering Provider: PRATIBHA FRIED Report Released Date/Time: Nov 19, 2024 08:50 AM Reporting Lab: [place] [address] [facility] [address] Performing Lab: [address] [phone] [place] [address] CBC HEMATOCRIT [VOLUME FRACTION] OF BLOOD 34.6 32.6 - 43.4 12/16 Specimen Type: BLOOD No comment entered. Ordering Provider: PRATIBHA FRIED Report Released Date/Time: Nov 19, 2024 08:50 AM Reporting Lab: [address] [address] Performing Lab: [address] [address] [facility] CBC MCV [ENTITIC VOLUME] BY AUTOMATED COUNT 85.0 fL 80.0 - 100.0 12/16 Specimen Type: BLOOD No comment entered. Ordering Provider: PRATIBHA FRIED Report Released Date/Time: Nov 19, 2024 08:50 AM Reporting Lab: [place] [address] [facility] [address] Performing Lab: [address] [address] [facility] CBC MCH [ENTITIC MASS] BY AUTOMATED COUNT 28.0 pg 27.0 - 34.0 12/16 Specimen Type: BLOOD No comment entered. Ordering Provider: PRATIBHA FRIED Report Released Date/Time: Nov 19, 2024 08:50 AM Reporting Lab: [address] [address] Performing Lab: [facility] [address] [facility] [address] [facility] CBC MCHC [MASS/VOLU ME] BY AUTOMATED COUNT 32.9 g/dL 33.0 - 36.0 12/16 L Specimen Type: BLOOD No comment entered. Ordering Provider: PRATIBHA FRIED Report Released Date/Time: Nov 19, 2024 08:50 AM Reporting Lab: [place] [address] [facility] [address] Performing Lab: [address] [address] [facility] CBC PLATELETS [#/VOLUME] IN BLOOD BY AUTOMATED COUNT 274 10*3/uL 150 - 400 12/16 Specimen Type: BLOOD No comment entered. Ordering Provider: PRATIBHA FRIED Report Released Date/Time: Nov 19, 2024 08:50 AM Reporting Lab: [place] [address] [facility] [address] Performing Lab: [address] [address] [facility] CBC PLATELET MEAN VOLUME [ENTITIC VOLUME] IN BLOOD BY AUTOMATED COUNT 9.2 fL 7.5 - 11.2 12/16 Specimen Type: BLOOD No comment entered. Ordering Provider: PRATIBHA FRIED Report Released Date/Time: Nov 19, 2024 08:50 AM Reporting Lab: [address] [address] Performing Lab: [address] [address] [facility] CBC ERYTHROCYT E DISTRIBUTI ON WIDTH [RATIO] BY AUTOMATED COUNT 12.9 11.8 - 15.1 12/16 Specimen Type: BLOOD No comment entered. Ordering Provider: PRATIBHA FRIED Report Released Date/Time: Nov 19, 2024 08:50 AM Reporting Lab: [address] [place] [address] Performing Lab: [facility] [address] [facility] [address] [facility] CBC LYMPHOCYTE S/100 LEUKOCYTES IN BLOOD BY AUTOMATED COUNT 44 12/16 Specimen Type: BLOOD No comment entered. Ordering Provider: PRATIBHA FRIED Report Released Date/Time: Nov 19, 2024 08:50 AM Reporting Lab: [facility] [address] [facility] [address] Performing Lab: [facility] [address] [facility] [address] [facility] CBC MONOCYTES/ 100 LEUKOCYTES IN BLOOD BY AUTOMATED COUNT 7 12/16 Specimen Type: BLOOD No comment entered. Ordering Provider: PRATIBHA FRIED Report Released Date/Time: Nov 19, 2024 08:50 AM Reporting Lab: [facility] [address] [facility] [address] Performing Lab: [facility] [address] [facility] [address] [facility] CBC NEUTROPHIL S/100 LEUKOCYTES IN BLOOD BY AUTOMATED COUNT 46 12/16 Specimen Type: BLOOD No comment entered. Ordering Provider: PRATIBHA FRIED Report Released Date/Time: Nov 19, 2024 08:50 AM Reporting Lab: [facility] [address] [facility] [address] Performing Lab: [facility] [address] [facility] [address] [facility] CBC EOSINOPHIL S/100 LEUKOCYTES IN BLOOD BY AUTOMATED COUNT 2 12/16 Specimen Type: BLOOD No comment entered. Ordering Provider: PRATIBHA FRIED Report Released Date/Time: Nov 19, 2024 08:50 AM Reporting Lab: [facility] [address] [facility] [address] Performing Lab: [facility] [address] [facility] [address] [facility] CBC BASOPHILS/ 100 LEUKOCYTES IN BLOOD BY AUTOMATED COUNT 1 12/16 Specimen Type: BLOOD No comment entered. Ordering Provider: PRATIBHA FRIED Report Released Date/Time: Nov 19, 2024 08:50 AM Reporting Lab: [place] [address] [facility] [address] Performing Lab: [address] [address] [facility] CBC LYMPHOCYTE S [#/VOLUME] IN BLOOD BY AUTOMATED COUNT 2.40 10*3/uL 0.77 - 4.50 12/16 Specimen Type: BLOOD No comment entered. Ordering Provider: PRATIBHA FRIED Report Released Date/Time: Nov 19, 2024 08:50 AM Reporting Lab: [address] [address] Performing Lab: [address] [address] [facility] CBC MONOCYTES [#/VOLUME] IN BLOOD BY AUTOMATED COUNT 0.37 10*3/uL 0.19 - 0.80 12/16 Specimen Type: BLOOD No comment entered. Ordering Provider: PRATIBHA FRIED Report Released Date/Time: Nov 19, 2024 08:50 AM Reporting Lab: [address] [address] Performing Lab: [address] [address] [facility] CBC NEUTROPHIL S [#/VOLUME] IN BLOOD BY AUTOMATED COUNT 2.54 10*3/uL 2.10 - 8.00 12/16 Specimen Type: BLOOD No comment entered. Ordering Provider: PRATIBHA FRIED Report Released Date/Time: Nov 19, 2024 08:50 AM Reporting Lab: [address] [address] Performing Lab: [address] [address] [facility] CBC EOSINOPHIL S [#/VOLUME] IN BLOOD BY AUTOMATED COUNT 0.12 10*3/uL 0.00 - 0.60 12/16 Specimen Type: BLOOD No comment entered. Ordering Provider: PRATIBHA FRIED Report Released Date/Time: Nov 19, 2024 08:50 AM Reporting Lab: [place] [address] [address] [facility] [address] Performing Lab: [place] [address] [address] [facility] [address] [facility] CBC BASOPHILS [#/VOLUME] IN BLOOD BY AUTOMATED COUNT 0.06 10*3/uL 0.00 - 0.20 12/16 Specimen Type: BLOOD No comment entered. Ordering Provider: PRATIBHA FRIED Report Released Date/Time: Nov 19, 2024 08:50 AM Reporting Lab: [place] [address] [address] [place] [phone] Performing Lab: [place] [address] [address] [facility] [address] [facility] COMPREHE NSIVE METABOLI C PANEL CREATININE [MASS/VOLU ME] IN SERUM OR PLASMA 0.86 mg/dL 0.6 - 1.1 12/16 Specimen Type: PLASMA Comment: No hemolysis noted. VERIFIED BY REPEAT Ordering Provider: PRATIBHA FRIED Report Released Date/Time: Nov 19, 2024 08:50 AM Reporting Lab: [place] [address] [address] [facility] [address] Performing Lab: [place] [address] [address] [facility] [address] [facility] COMPREHE NSIVE METABOLI C PANEL UREA NITROGEN [MASS/VOLU ME] IN SERUM OR PLASMA 10.3 mg/dL 9.0 - 25.0 12/16 Specimen Type: PLASMA Comment: No hemolysis noted. VERIFIED BY REPEAT Ordering Provider: PRATIBHA FRIED Report Released Date/Time: Nov 19, 2024 08:50 AM Reporting Lab: [facility] [address] [facility] [address] Performing Lab: [facility] [address] [facility] [address] [facility] COMPREHE NSIVE METABOLI C PANEL GLUCOSE [MASS/VOLU ME] IN SERUM OR PLASMA 81 mg/dL 72 - 99 12/16 Specimen Type: PLASMA Comment: No hemolysis noted. VERIFIED BY REPEAT Ordering Provider: PRATIBHA FRIED Report Released Date/Time: Nov 19, 2024 08:50 AM Reporting Lab: [facility] [address] [facility] [address] Performing Lab: [facility] [address] [facility] [address] [facility] COMPREHE NSIVE METABOLI C PANEL SODIUM [MOLES/VOL UME] IN SERUM OR PLASMA 139 meq/L 136 - 145 12/16 Specimen Type: PLASMA Comment: No hemolysis noted. VERIFIED BY REPEAT Ordering Provider: PRATIBHA FRIED Report Released Date/Time: Nov 19, 2024 08:50 AM Reporting Lab: [facility] [address] [facility] [address] Performing Lab: [facility] [address] [facility] [address] [facility] COMPREHE NSIVE METABOLI C PANEL POTASSIUM [MOLES/VOL UME] IN SERUM OR PLASMA 3.8 meq/L 3.5 - 5 12/16 Specimen Type: PLASMA Comment: No hemolysis noted. VERIFIED BY REPEAT Ordering Provider: PRATIBHA FRIED Report Released Date/Time: Nov 19, 2024 08:50 AM Reporting Lab: [facility] [address] [facility] [address] Performing Lab: [facility] [address] [facility] [address] [facility] COMPREHE NSIVE METABOLI C PANEL CHLORIDE [MOLES/VOL UME] IN SERUM OR PLASMA 105 meq/L 98 - 107 12/16 Specimen Type: PLASMA Comment: No hemolysis noted. VERIFIED BY REPEAT Ordering Provider: PRATIBHA FRIED Report Released Date/Time: Nov 19, 2024 08:50 AM Reporting Lab: [facility] [address] [facility] [address] Performing Lab: [facility] [address] [facility] [address] [facility] COMPREHE NSIVE METABOLI C PANEL CARBON DIOXIDE, TOTAL [MOLES/VOL UME] IN SERUM OR PLASMA 26 meq/L 22 - 31 12/16 Specimen Type: PLASMA Comment: No hemolysis noted. VERIFIED BY REPEAT Ordering Provider: PRATIBHA FRIED Report Released Date/Time: Nov 19, 2024 08:50 AM Reporting Lab: [facility] [address] [facility] [address] Performing Lab: [facility] [address] [facility] [phone] [place] [address] COMPREHE NSIVE METABOLI C PANEL CALCIUM [MASS/VOLU ME] IN SERUM OR PLASMA 9.5 mg/dL 8.4 - 10.4 12/16 Specimen Type: PLASMA Comment: No hemolysis noted. VERIFIED BY REPEAT Ordering Provider: PRATIBHA FRIED Report Released Date/Time: Nov 19, 2024 08:50 AM Reporting Lab: [facility] [address] [facility] [address] Performing Lab: [facility] [address] [facility] [address] [facility] COMPREHE NSIVE METABOLI C PANEL PROTEIN [MASS/VOLU ME] IN SERUM OR PLASMA 7.1 g/dL 6 - 8.6 12/16 Specimen Type: PLASMA Comment: No hemolysis noted. VERIFIED BY REPEAT Ordering Provider: PRATIBHA FRIED Report Released Date/Time: Nov 19, 2024 08:50 AM Reporting Lab: [facility] [address] [facility] [address] Performing Lab: [facility] [address] [facility] [address] [facility] COMPREHE NSIVE METABOLI C PANEL ALBUMIN [MASS/VOLU ME] IN SERUM OR PLASMA 4.1 g/dL 3.4 - 5 12/16 Specimen Type: PLASMA Comment: No hemolysis noted. VERIFIED BY REPEAT Ordering Provider: PRATIBHA FRIED Report Released Date/Time: Nov 19, 2024 08:50 AM Reporting Lab: [address] [address] Performing Lab: [place] [address] [facility] [phone] [place] [address] COMPREHE NSIVE METABOLI C PANEL BILIRUBIN. TOTAL [MASS/VOLU ME] IN SERUM OR PLASMA 0.6 mg/dL 0.2 - 1.2 12/16 Specimen Type: PLASMA Comment: No hemolysis noted. VERIFIED BY REPEAT Ordering Provider: PRATIBHA FRIED Report Released Date/Time: Nov 19, 2024 08:50 AM Reporting Lab: [place] [address] [facility] [address] Performing Lab: [address] [phone] [place] [address] COMPREHE NSIVE METABOLI C PANEL ALKALINE PHOSPHATAS E [ENZYMATIC ACTIVITY/V OLUME] IN SERUM OR PLASMA 77 U/L 40 - 150 12/16 Specimen Type: PLASMA Comment: No hemolysis noted. VERIFIED BY REPEAT Ordering Provider: PRATIBHA FRIED Report Released Date/Time: Nov 19, 2024 08:50 AM Reporting Lab: [place] [address] [facility] [address] Performing Lab: [address] [address] [facility] COMPREHE NSIVE METABOLI C PANEL ASPARTATE AMINOTRANS FERASE [ENZYMATIC ACTIVITY/V OLUME] IN SERUM OR PLASMA 28 U/L 5 - 34 12/16 Specimen Type: PLASMA Comment: No hemolysis noted. VERIFIED BY REPEAT Ordering Provider: PRATIBHA FRIED Report Released Date/Time: Nov 19, 2024 08:50 AM Reporting Lab: [facility] [address] [facility] [address] Performing Lab: [facility] [address] [facility] [address] [facility] COMPREHE NSIVE METABOLI C PANEL ALANINE AMINOTRANS FERASE [ENZYMATIC ACTIVITY/V OLUME] IN SERUM OR PLASMA 26 U/L 8 - 40 12/16 Specimen Type: PLASMA Comment: No hemolysis noted. VERIFIED BY REPEAT Ordering Provider: PRATIBHA FRIED Report Released Date/Time: Nov 19, 2024 08:50 AM Reporting Lab: [facility] [address] [facility] [address] Performing Lab: [place] [address] [facility] [address] [facility] COMPREHE NSIVE METABOLI C PANEL GLOMERULAR FILTRATION RATE/1.73 SQ M.PREDICTE D [VOLUME RATE/AREA] IN SERUM, PLASMA OR BLOOD BY CREATININE -BASED FORMULA (CKD-EPI 2020) 81.2 60 12/16 Specimen Type: PLASMA Comment: No hemolysis noted. VERIFIED BY REPEAT Ordering Provider: PRATIBHA FRIED Report Released Date/Time: Nov 19, 2024 08:50 AM Reporting Lab: [place] [address] [facility] [address] Performing Lab: [facility] [address] [facility] [address] [facility] Vital Signs Combined list of inpatient and outpatient Vital Signs from Department of Defense and Veterans Affairs, ranging from 12 months to all on record, depending upon the facility. Vital Sign Value Date Comments Source SYSTOLIC BLOOD PRESSURE 156 03/19/20 25 10:40:03 [facility] DIASTOLIC BLOOD PRESSURE 84 025 10:40:03 [facility] PULSE OXIMETRY 97 % 03/19/2025 10:40:03 [facility] WEIGHT 183.9 03/19/2025 10:40:03 [facility] BMI 32 kg/m2 03/19/2025 10:40:03 [facility] PAIN 0 03/19/2025 10:40:03 [facility] HEIGHT 64 03/19/2025 10:40:03 [facility] TEMPERATURE 98.2 03/19/2025 10:40:03 [facility] PULSE 76 03/19/2025 10:40:03 [facility] RESPIRATION 16 03/19/2025 10:40:03 [facility] SYSTOLIC BLOOD PRESSURE 128 02/04/20 25 11:52:52 [facility] DIASTOLIC BLOOD PRESSURE 76 025 11:52:52 [facility] PULSE OXIMETRY 99 02/03/2025 11:52:52 [facility] WEIGHT 191 02/03/2025 11:52:52 [facility] BMI 33 kg/m2 02/03/2025 11:52:52 [facility] PAIN 0 02/03/2025 11:52:52 [facility] HEIGHT 64 02/03/2025 11:52:52 [facility] TEMPERATURE 98.1 02/03/2025 11:52:52 [facility] PULSE 81 02/03/2025 11:52:52 [facility] RESPIRATION 20 02/03/2025 11:52:52 [facility] SYSTOLIC BLOOD PRESSURE 130 01/07/20 25 08:07:08 [facility] DIASTOLIC BLOOD PRESSURE 77 025 08:07:08 [facility] PULSE OXIMETRY 99 01/06/2025 08:07:08 [facility] PAIN 0 01/06/2025 08:07:08 [facility] HEIGHT 64 01/06/2025 08:07:08 [facility] TEMPERATURE 98.2 01/06/2025 08:07:08 [facility] PULSE 87 01/06/2025 08:07:08 [facility] RESPIRATION 18 01/06/2025 08:07:08 [facility] SYSTOLIC BLOOD PRESSURE 134 12/25/19 25 10:30:00 [facility] DIASTOLIC BLOOD PRESSURE 82 025 10:30:00 [facility] PULSE OXIMETRY 98 12/24/2024 10:30:00 [facility] WEIGHT 191.2 12/24/2024 10:30:00 [facility] BMI 33 kg/m2 12/24/2024 10:30:00 [facility] PAIN 0 12/24/2024 10:30:00 [facility] HEIGHT 64 12/24/2024 10:30:00 [facility] TEMPERATURE 98.6 12/24/2024 10:30:00 [facility] PULSE 81 12/24/2024 10:30:00 [facility] RESPIRATION 12 12/24/2024 10:30:00 [facility] SYSTOLIC BLOOD PRESSURE 138 11/20/19 25 08:33:35 [facility] DIASTOLIC BLOOD PRESSURE 76 025 08:33:35 [facility] PULSE OXIMETRY 99 11/19/2024 08:33:35 [facility] WEIGHT 194.8 11/19/2024 08:33:35 [facility] BMI 34 kg/m2 11/19/2024 08:33:35 [facility] PAIN 0 11/19/2024 08:33:35 [facility] HEIGHT 64 11/19/2024 08:33:35 [facility] TEMPERATURE 98 11/19/2024 08:33:35 [facility] PULSE 86 11/19/2024 08:33:35 [facility] RESPIRATION 18 11/19/2024 08:33:35 [facility] Encounters Combined list of: 1) Encounters [...] Source [facility]([employer] ) OUTPATIENT [id number] profile issue MALIK ORTEGA E 12/30 Released with Work/Duty Limitations [facility]rel [facility] Militar y Readine ss) [facility]([employer] ) OUTPATIENT [id number] PAP MALIK ORTEGA E 01/04 Released with Work/Duty Limitations [facility]ar y Readine ss) [facility]([employer] ) TELE CONSULT [id number] f/u to discuss mri ankle result KENROY VO 01/10 [facility]([employer] M[employer]ar y Readine ss) [facility] Financial [facility]) OUTPATIENT [id number] PAP;SRP SOLDIER NIA MONSIVAIS 01/10 Released w/o Limitations [facility]) [facility]([employer] ) OUTPATIENT [id number] PAP MALIK ORTEGA E 01/11 Released w/o Limitations [facility](Irel and Militar y Readine ss) [facility]) OUTPATIENT [id number] ankle joint pain JOSETTE FUENTES 01/28 Released w/o Limitations [facility]) [facility]) OUTPATIENT [id number] DYSMENO RRHEA EDITA LIANG 04/04 Released w/o Limitations [facility]) [facility](Immuni zation Clinic) OUTPATIENT [id number] [employer] ?? JARET THOMAS 04/04 Released w/o Limitations [facility](Immu nizatio n Clinic) Jennifer Badillo [place]([facility]) TELE CONSULT [phone] surgery on 14 april; ISELA Jaime 04/25 [place] BRITTANY RdzTobyhanna, REG[facility]) [place] BRITTANY Lozadaox[facility]AN([facility]an d Financial [facility]) OUTPATIENT [id number] WALK IN EDITA LIANG 04/26 Released w/o Limitations Jennifer BRITTANY [facility]AN([facility] Financial [facility]) [place] BRITTANY [facility]ozadaoxREGAN([employer] ) OUTPATIENT [id number] need profile update MALIK ORTEGA E 05/20 Released with Work/Duty Limitations [place] BRITTANY LozadaoxREGAN(Irel and Militar y Readine ss) [place] BRITTANY [facility]ozadaoxREGAN([employer]iness ) OUTPATIENT [id number] SINUS INFECTI ON SANTO JULES C 05/31 Released w/o Limitations [place] BRITATNY LozadaoxREGAN(Irel and Militar y Readine ss) [place] [facility]) OUTPATIENT [id number] Ankle joint pain JUNE BRAY 06/16 Released w/o Limitations [place] [facility]) [place] [facility] [place](Irelan d Readiness ) OUTPATIENT [id number] infecte d hair folicle MALIK ORTEGA E 06/29 Released w/o Limitations [place] [facility] [place](Irel and Militar y Readine ss) [place] [facility](Irelan d Readiness ) OUTPATIENT [id number] infecte d hair folicle fu/ MALIK ORTEGA E 07/04 Released w/o Limitations [place] [facility] [place](Irel and Militar y Readine ss) [place] [facility]) OUTPATIENT [id number] SEASONA L WOJCIECH MCNALLY 07/06 Released w/o Limitations [place] [place] [facility]) OUTPATIENT [id number] hep b+. STEFANIE STEEN 10/04 Released w/o Limitations [facility] [place]) OUTPATIENT [id number] BI LOLY RENEEROSALVA Mg 10/04 Released w/o Limitations [facility] [place]) [place], [place](Irelan d Readiness ) OUTPATIENT [id number] update profile MALIK ORTEGA 10/04 Released with Work/Duty Limitations [place] OUTPAT[place] [id number] profile MALIK ORTEGA E 01/04 Released with Work/Duty Limitations [place] TELE CONSULT [id number] 5 Day B/P KENROY VO 01/04 [place], [place]([facility]rel and Militar y Readine ss) [place], [place](Irelan d Readiness ) OUTPATIENT [id number] Day1/5 Day BP Check MALIK ORTEGA E 01/05 Released w/o Limitations [place]([facility]rel and Militar y Readine ss) [facility] [employer] [place]([facility]) OUTPATIENT [id number] Notes Entered by: ESTRELLITA TOVAR 30 Apr 2018 0815 ------- ------- ------- ------- -- (N P-DS) CONGEST ION,LOW ER BACK PAIN CORNEL POLANCO 04/30 Released w/o Limitations [facility] [employer] [place] [employer] OUTPATIENT [id number] Notes Entered by: MARTÍNEZ OLSON 02 May 2018 0735 ------- ------- ------- ------- -- E 10/17= DS F/u back pain CORNEL POLANCO 05/02 Released w/o Limitations [facility] [employer] [place] [facility] [employer]) [place] [id number] low back pain/ri ght leg pain per Tram Thao ld HA SYED 05/03 Released w/o Limitations [facility] [employer] [place] [facility] [employer]) [place] [id number] back HA SYED Elin 05/08 Released w/o Limitations [facility] [employer] [place] [facility] [employer]) [place] [id number] BACK GIANNA BYRD Elin 05/15 Released w/o Limitations [facility] [employer] [place] [facility] [employer]) [place] [id number] BACK HA SYED Elin 05/16 Released w/o Limitations [facility] [employer] [facility] [place] [facility] [employer]) OUTPATIENT [id number] BACK EDUARDO LÓPEZ JESSICA 05/22 Released w/o Limitations [facility] [employer] [facility] [employer] S02B Leak[place] OUTPATIENT [id number] Notes Entered by: SORAYA ISBELL 23 May 2018 1101 ------- ------- ------- ------- -- E1(D /S) Labs GATO RODRIGUEZ 05/23 Released w/o Limitations [facility] [employer] S02B Leak[place] [facility] Outpatient Encounter [id number] 12/30 [facility] OFFICE O/P NEW MOD 45 MIN [id number] Diagnos is: ICD-10- CM E11.9 Type 2 diabete s mellitu s without complic ations GEOFFREY HERNANDEZ 12/30 [facility] PSYTX W PT 30 MINUTES [id number] [id number] Diagnos is: ICD-10- CM F43.20 Adjustm ent disorde r, unspeci fied JED SCHMIDT T 12/30 [facility] Outpatient Encounter [id number] 1 01/03 [facility] OFF/OP EST JANUARY X REQ PHY/QHP [id number] [id number] Diagnos is: ICD-10- CM E11.9 Type 2 diabete s mellitu s without complic ations ROMANA PRIEST R 01/07 [facility] HC PRO PHONE CALL 11-20 MIN [id number] [id number] Diagnos is: ICD-10- CM E11.9 Type 2 diabete s mellitu s without complic ations ROMANA PRIEST R 01/13 [facility] PSYTX W PT 45 MINUTES [id number] [id number] Diagnos is: ICD-10- CM F34.1 Dysthym ic disorde r JED SCHMIDT T 01/20 [facility] PSYTX W PT 30 MINUTES [id number] [id number] Diagnos is: ICD-10- CM F34.1 Dysthym ic disorde r JED SCHMIDT T 01/29 [facility] Outpatient Encounter [id number] [id number] 02/12 [facility] Outpatient Encounter [id number] [id number] JED SCHMIDT T 02/13 [facility] OFFICE O/P NEW MOD 45 MIN [id number] [id number] Diagnos is: ICD-10- CM E11.9 Type 2 diabete s mellitu s without complic ations DOMINIC MCDONNELL 02/26 [facility] Outpatient Encounter [id number] [id number] 1 04/16 [facility] Outpatient Encounter [id number] [id number] 06/23 [facility] Outpatient Encounter [id number] [id number] MARY,NID HI 08/15 [facility] Outpatient Encounter [id number] [id number] MARY,NID HI 08/29 [facility] OFFICE O/P EST MOD 30 MIN [id number] [id number] Diagnos is: ICD-10- CM E11.9 Type 2 diabete s mellitu s without complic ations GEOFFREY HERNANDEZ HI 08/29 [facility] Outpatient Encounter [id number] [id number] 09/17 [facility] Outpatient Encounter [id number] [id number] 10/08 [facility] NRV CNDJ TEST 9-10 STUDIES [id number] [id number] 4 Diagnos is: ICD-10- CM G56.01 Carpal tunnel syndrom e, right upper limb POONAM PARTIDA 10/08 [facility] Outpatient Encounter [id number] [id number] 10/08 [facility] Outpatient Encounter [id number] [id number] ROMANA PRIEST R 10/16 [facility] Outpatient Encounter [id number] [id number] 10/31 [facility] Outpatient Encounter [id number] ROMANA PRIEST R 11/04 [facility] OFFICE O/P NEW MOD 45 MIN 21743-3. [id number] Diagnos is: ICD-10- CM G56.01 Carpal tunnel syndrom e, right upper limb PREVEL,CHR ISTOPHER D 11/19 [facility] Outpatient Encounter [id number] 11/19 [facility] Outpatient Encounter [id number] Diagnos is: ICD-10- CM Z04.89 Encount er for examina tion and observa tion for oth reasons YOCASTA TODD IEMichelle P 12/03 [facility] PH1 ASSMT&MGMT NQHP 5-10 [id number] Diagnos is: ICD-10- CM G56.01 Carpal tunnel syndrom e, right upper limb TORRES,RENÉ COMPA 12/12 [facility] Outpatient Encounter [id number] [id number] 1 12/16 [facility] PH1 ASSMT&MGMT NQHP 5-10 [id number] [id number] 5 Diagnos is: ICD-10- CM G56.01 Carpal tunnel syndrom e, right upper limb SILVER PERDOMO D 12/23 [facility] PH1 ASSMT&MGMT NQHP 5-10 [id number] [id number] Diagnos is: ICD-10- CM G56.01 Carpal tunnel syndrom e, right upper limb TORRES,VE COMPA 12/23 [facility] OFF/OP EST MAY X REQ PHY/QHP [id number] [id number] 4 Diagnos is: ICD-10- CM Z11.52 Encount er for screeni ng for COVID-1 9 FRANCISCO J TAY 12/23 [facility] OFFICE O/P EST LOW 20 MIN [id number] [id number] 4 Diagnos is: ICD-10- CM G56.01 Carpal tunnel syndrom e, right upper limb PREVEL,CHR ISTOPHER D 12/24 [facility] MEASURE BLOOD OXYGEN LEVEL [id number] [id number] Diagnos is: ICD-10- CM S44.01X A 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, right arm, init FILOMENA PALENCIA L 12/24 [facility] OFFICE O/P EST LOW 20 MIN [id number] [id number] Diagnos is: ICD-10- CM Z01.818 Encount er for other preproc edural examina Saurav Hennessy 12/24 [facility] Outpatient Encounter [id number] [id number] Saurav GRIFFIN 12/24 [facility] Outpatient Encounter [id number] [id number] PREVEL,CHR ISTOPHER D 12/24 [facility] CARPAL TUNNEL SURGERY [id number] [id number] 6 Diagnos is: ICD-10- CM G56.01 Carpal tunnel syndrom e, right upper limb KLAUDIA DE JESUS E 12/24 [facility] Outpatient Encounter [id number] [id number] KLAUDIA DE JESUS E 12/24 [facility] Outpatient Encounter [id number] [id number] TAHMINA REGAN E 12/24 [facility] Outpatient Encounter [id number]. [id number] HOLLYMICHAEL MELCHOR A 12/24 [facility] SYNCH AUDIO-ONLY EST SF 10 [id number] [id number] 6 Diagnos is: ICD-10- CM G56.01 Carpal tunnel syndrom e, right upper limb PREVEL,CHR ISTOPHER D 12/25 [facility] Outpatient Encounter [id number] [id number] 12/26 [facility] OFFICE O/P EST MOD 30 MIN [id number] [id number] Diagnos is: ICD-10- CM E11.9 Type 2 diabete s mellitu s without complic ations CAMI BYRD TTHEW C 12/26 [facility] POSTOP FOLLOW-UP VISIT [id number]. [id number] Diagnos is: ICD-10- CM G56.01 Carpal tunnel syndrom e, right upper limb PREVEL,CHR ISTOPHER D 01/06 [facility] Outpatient Encounter [id number] [id number] CAMI BYRD TTHEW C 01/08 [facility] OFFICE O/P EST LOW 20 MIN [id number] [id number] Diagnos is: ICD-10- CM G56.00 Carpal tunnel syndrom e, unspeci fied upper limb RODRICK BLAIR ESH 02/03 [facility] Outpatient Encounter [id number] [id number] 02/27 [facility] Outpatient Encounter [id number] [id number] GEOFFREY HERNANDEZ PA 03/11 [facility] Outpatient Encounter [id number] 03/19 [facility] Outpatient Encounter [id number] [id number] 03/19 [facility] OFFICE O/P EST MOD 30 MIN [id number] [id number] Diagnos is: ICD-10- CM E11.9 Type 2 diabete s mellitu s without complic ations GEOFFREY HERNANDEZ PA 03/19 [facility] PT EDUCATION NOC INDIVID [id number] [id number] Diagnos is: ICD-10- CM 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 Procedures Combined list of: 1) Procedures from Department of Veterans Affairs facilities going back up to thelast 18 months, not all VA non-surgical procedures are included; 2) All procedures from the Department of Defense facilities. Procedure Procedure Type Code Date Perfomer Comments Sourc e APPLICATION OF A MODALITY TO 1 OR MORE AREAS; HOT OR COLD PACKS [facility] THERAPEUTIC PROCEDURE,1 OR MORE AREAS,EACH 15 MINUTES;NEUROMUSCULA R REEDUCATION OF MOVEMENT,BALANCE,PARKING ENFORCEMENT OFFICER RDINATION,KINESTHETI C SENSE,POSTURE,AND/OR PROPRIOCEPTION FOR SITTING AND/OR STANDING ACTIVITIES [facility] APPLICATION OF A MODALITY TO 1 OR MORE AREAS; HOT OR COLD PACKS [facility] THERAPEUTIC PROCEDURE, 1 OR MORE AREAS, EACH 15 MINUTES; THERAPEUTIC EXERCISES TO DEVELOP STRENGTH AND ENDURANCE, RANGE OF MOTION AND FLEXIBILITY [facility] THERAPEUTIC PROCEDURE, 1 OR MORE AREAS, EACH 15 MINUTES; THERAPEUTIC EXERCISES TO DEVELOP STRENGTH AND ENDURANCE, RANGE OF MOTION AND FLEXIBILITY [facility] COLD OR HOT FLUID BOTTLE, ICE CAP OR COLLAR, HEAT AND/OR COLD WRAP, ANY TYPE [facility] AUDIOMETRIC TESTING OF GROUPS [facility] BLOOD PRESSURE MEASURED (CKD)(DM) [facility] DETERMINATION OF REFRACTIVE STATE [facility] HEPATITIS B VACCINE (HEPB), ADULT DOSAGE, 3 DOSE SCHEDULE, FOR INTRAMUSCULAR USE [facility] INFLUENZA VIRUS VACCINE, TRIVALENT, LIVE (LAIV3), FOR INTRANASAL USE [facility] THERAPEUTIC PROCEDURE, 1 OR MORE AREAS, EACH 15 MINUTES; THERAPEUTIC EXERCISES TO DEVELOP STRENGTH AND ENDURANCE, RANGE OF MOTION AND FLEXIBILITY [facility] UNLISTED SPECIAL SERVICE, PROCEDURE OR REPORT [facility] EDUCATIONAL SUPPLIES, SUCH BOOKS, TAPES, AND PAMPHLETS, FOR THE PATIENT'S EDUCATION AT COST TO PHYSICIAN OR OTHER QUALIFIED HEALTH BUTT WELDER [facility] HEPATITIS B VACCINE (HEPB), ADULT DOSAGE, 3 DOSE SCHEDULE, FOR INTRAMUSCULAR USE [facility] THERAPEUTIC PROCEDURE, 1 OR MORE AREAS, EACH 15 MINUTES; THERAPEUTIC EXERCISES TO DEVELOP STRENGTH AND ENDURANCE, RANGE OF MOTION AND FLEXIBILITY [facility] SCREENING PAPANICOLAOU SMEAR; OBTAINING, PREPARING AND CONVEYANCE OF CERVICAL OR VAGINAL SMEAR TO LABORATORY [facility] AUDIOMETRIC TESTING OF GROUPS 010 [facility] Traction Pelvic Traction Pelvic 19289 018 EDUARDO LÓPEZ Modalities Electrical Stimulation Unattended Modalities Electrical Stimulation Unattended 14162 018 EDUARDO LÓPEZ Modalities Heat Hot Packs Modalities Heat Hot Packs 03382 018 EDUARDO LÓPEZ Physical Therapy Neuromuscular Re-education Physical Therapy Neuromuscular Re-education 88373 018 CONTFANNIE HA Elin Jv Physical Medicine Physical Therapy Re-Evaluation Physical Medicine Physical Therapy Re-Evaluation 72894 018 CONTFANNIE HA Elin Carias Traction Pelvic Traction Pelvic 33075 018 GIANNA BYRD Modalities Electrical Stimulation Unattended Modalities Electrical Stimulation Unattended 28332 018 GIANNA BYRD Modalities Heat Hot Packs Modalities Heat Hot Packs 91393 018 GIANNA BYRD Exercises A isted Exercises For ROM Exercises Assisted Exercises For ROM 80486 018 CONTFANNIE HA Elin Carias Physical Medicine Physical Therapy Re-Evaluation Physical Medicine Physical Therapy Re-Evaluation 51579 018 CONTHA GRECO Exercises A isted Exercises For ROM Exercises Assisted Exercises For ROM 19589 018 HA SYED Osteopathic Manip Treatment (OMT) 1-2 Body Regions Involved Osteopathic Manip Treatment (OMT) 1-2 Body Regions Involved 71328 018 CORNEL POLANCO Hot water bottle, ice cap or collar, heat and/or cold wrap, any type 018 CORNEL POLANCO A e ment & Intervention Blood Pre ure Measured 011 MALIK ORTEGA Determination Of Refractive State Determination Of Refractive State 16399 011 RONNIE RENEE Ophthalmological New Patient Start Comprehensive Care Ophthalmological New Patient Start Comprehensive Care 78226 011 RONNIE RENEE Hepatitis B Vaccine (Active); 20 Years and Above 011 JARET THOMAS Immunization Administration One Vaccine Immunization Administration One Vaccine 90542 011 JARET THOMAS Influenza Virus Vaccine Live Intranasal 10/20/2 010 JOSH ROCKY Martinez [facility] Immunization Admin By Intranasal / Oral Route One Vaccine Immunization Admin By Intranasal / Oral Route One Vaccine 47482 010 ROCKY MORENO [facility] Physical Therapy: ___ Se ion Segments, 15 Minutes Each Physical Therapy: ___ Session Segments, 15 Minutes Each 36558 010 JUNE BRAY [facility] Physical Medicine Physical Therapy Evaluation Physical Medicine Physical Therapy Evaluation 75909 010 JUNE BRAY [facility] Hepatitis B Vaccine (Active); 20 Years and Above WILLIAM JARET L [facility] Immunization Administration One Vaccine Immunization Administration One Vaccine 49795 WILLIAM JARET L [facility] Physical Therapy: ___ Se ion Segments, 15 Minutes Each Physical Therapy: ___ Session Segments, 15 Minutes Each 32387 010 JOSETTE FUENTES [facility] Physical Medicine Physical Therapy Evaluation Physical Medicine Physical Therapy Evaluation 18428 010 JOSETTE FUENTES [facility] Screening papanicolaou smear; obtaining, preparing and conveyance of cervical or vaginal smear to laboratory 010 NIA MONSIVAIS [facility] right carpal tunnel release CARPAL TUNNEL SURGERY 18869 025 [facility] Social History Combined list of available smoking, tobacco, and other social history from Department of Defense and Veterans Affairs facilities. Social History Type Response Date Comment Sour e Tobacco smoking status NHIS DC-TOBACCO NEVER USED CIGARETTES 03/11/2025 [facility] History of tobacco use VA-TOBACCO NEVER USED OTHER TYPE 03/11/2025 [facility] History of tobacco use DC-TOBACCO NEVER USED 12/31/2023 [facility] This section is an empty social history section. [facility] Plan of Care List of future care activities from Department of Veterans Affairs facilities. Additional future care activities may be listed in the Assessment and Plan section. Date/Time Care Activity Care Activity Detail Facili ty 05/05/2025 AMBULATORY - REHAB MEDICINE AMBULATORY - REHAB MEDICINE [facility] Advance Directives List of completed, amended, or rescinded Advance Directives on record at Department of Veterans Affairs facilities. An actual copy of the Directive is not included. Date Advance Directive Provider Source 03/21/1996 ADVANCE DIRECTIVE HARJIT BURGOS [facility]
--- OUTSIDE RECORDS SUMMARY | 2025-03-27 01:36 | XMS_ITS | Encounter Summary ---
Author Organization [facility] Health Address [address] [place] [address] Care Team Providers Care Transmission Worker Name Role Phone Unavailable Primary Care Provider Unavailabl e Prior Encounters Date Type Department Care Team Description 10/06/2019 Converted 13x Documents [id number] [place] [address] <No scans attached> Plan of Treatment Not on file Visit Diagnoses Not on file
--- OUTSIDE RECORDS SUMMARY | 2025-03-27 01:36 | XMS_ITS | Clinical Summary ---
Author Organization [facility] Address [address] [place] [address] Care Team Providers Care Mold Forms Builder Name Role Phone Aicha Call MD Primary Care Provider [phone] Allergies Active Allergy Reactions Criticality Noted Date Comments Amoxicillin Diarrhea Low Reaction: Diarrhea, Potassium Diarrhea Low Reaction: Diarrhea, Medications Multiple Vitamins-Minerals (ONE DAILY CALCIUM/IRON) Tab Take 1 tablet by mouth daily. Active Cholecalciferol 50 MCG (2000 UT) Cap Take 2,000 Units by mouth daily. Active AUVI-Q 0.3 MG/0.3ML injection see administration instructions. PRN 022 Active ALLERGY RELIEF 180 MG tablet Take 1 tablet (180 mg total) by mouth daily. PRN 022 Active ezetimibe (ZETIA) 10 MG tabletIndications :Hyperlipidemia, unspecified hyperlipidemia type Take 1 tablet (10 mg total) by mouth daily. 90 tablet 1 023 Active rosuvastatin (CRESTOR) 10 MG tabletIndications :Hyperlipidemia, unspecified hyperlipidemia type Take 1 tablet (10 mg total) by mouth daily. 90 tablet 2 023 Active Docusate Sodium (DSS) 100 MG Cap Take 100 mg by mouth as needed. 023 Active buPROPion XL (WELLBUTRIN XL) 300 MG 24 hr tabletIndications :Moderate major depression (CMS/HCC),Severe anxiety TAKE 1 TABLET(300 MG) BY MOUTH DAILY 90 tablet 024 Active polyethylene glycol (GLYCOLAX) 17 GM/SCOOP powder daily as needed. 024 Active naproxen (NAPROSYN) 500 MG tabletIndications :Chronic midline low back pain with bilateral sciatica Take 1 tablet (500 mg total) by mouth 2 (two) times daily as needed. Take with food and plenty of water. 60 tablet 1 024 Active OZEMPIC 2 mg/dose injection (PEN) Inject 2 mg into the skin once a week. 025 Active testosterone (ANDROGEL) 50 MG of testosterone/5 GM (1%) Gel gel Apply 2-3 drops to the forearms daily for decreased libido 025 Active busPIRone (BUSPAR) 5 MG tabletIndications :Mild anxiety Take 2 tablets (10 mg total) by mouth nightly at bedtime. 025 Active tamsulosin (FLOMAX) 0.4 MG CapIndications:Ot her microscopic hematuria,History of kidney stones Take 1 capsule (0.4 mg total) by mouth daily as needed. 30 capsule 025 Active hydrOXYzine (ATARAX) 10 MG tabletIndications :Mild anxiety,Primary insomnia TAKE 1 TABLET(10 MG) BY MOUTH EVERY NIGHT NEEDED FOR ITCHING 30 tablet 2 025 Active hydrOXYzine (ATARAX) 10 MG tabletIndications :Mild anxiety,Primary insomnia Take 1 tablet (10 mg total) by mouth nightly as needed for Itching. 30 tablet 2 025 2024 Discontinued Active Problems Problem Noted Date Diagnosed Date Low libido 10/09/2024 Vaginal atrophy 10/09/2024 Recurrent depression 06/30/2024 Dysthymic disorder 06/30/2024 Anxiety 06/30/2024 Carpal tunnel syndrome of right wrist 11/22/2022 Overview (04/19/2023): Added automatically from request for surgery [id number] Rash 09/27/2022 Pure hypercholesterolemia 09/27/2022 Elevated blood [...] Uncontrolled type 2 diabetes mellitus with hyperglycemia ([facility]) 05/10/2020 S/P laparoscopic sleeve gastrectomy 05/10/2020 Vitamin D deficiency 03/10/2020 Hypersomnia 11/14/2019 Familial hypercholesterolemia 07/16/2019 Fatigue due to sleep pattern disturbance 019 Vaginal itching 01/02/2018 Yeast infection of the vagina 01/02/2018 Elevated liver enzymes 12/04/2017 Vaginal discharge 11/28/2017 Encounter for long-term current use of medicatio n 08/15/2017 Muscle pain 08/15/2017 Type 2 diabetes mellitus ([facility]) 08/15 Hypothyroidism 02/07/2017 Menorrhagia 12/22/2016 Hot flashes due to menopause 02/24/2014 Uterine bleeding 02/24/2014 Obesity, diabetes, and hyper tension syndrome ([facility]) 01/31/2014 Overview (10/21/2018): Overview: Obesity Overview: [...] Type Department Care Team Description 02/19/[address] [address] Aicha Call MD Results 02/06/2025 1:22 PM CDT - 02/06/2025 11:59 PM CDT Hospital Encounter [facility] [address] [place] [address] Aicha Call MD Discharge Disposition: Home or Self Care (Routine Discharge) 02/06/2025 Travel 01/30/2025 Results Follow-Up [address] [address] Aicha Call MD A1C (BACK OFFICE), URINALYSIS AUTO DIP, URINE BACTERIA CULTURE 01/22/2025 7:40 AM CDT Office Visit [address] [address] Aicha Call MD Depression; Carpal Tunnel Syndrome (right); Diabetes; Hyperlipidemia; Obesity 01/22/2025 - 01/22/2025 11:59 PM CDT Hospital Encounter [facility] [address] Aicha Call MD Discharge Disposition: Home or Self Care (Routine Discharge) 01/22/2025 Results Follow-Up [facility] [address] [place] [address] Aicha Call MD COMPREHENSIVE METABOLIC PANEL, LIPID PANEL, TSH W/REFLEX, ALBUMIN URINE RANDOM W/CREATININE 01/22/2025 Results Follow-Up [facility] [address] [place] [address] Aicha Call MD A1C (BACK OFFICE) 01/22/2025 Travel from Last 3 Months Immunizations Immunization Administration Dates Next Due Adenovirus Vaccine 09/24/1990 Afluria 36 MONTHS+ (Prefille d Syringe IIV4) 07/28/2019 FLUCELVAX (ccIIV3, TRIVALENT, 0.5mL) 06/30/2024 Flulaval Quad (Prefilled Syringe) 06/23/2020 H1N1 Injectable 2008 Influenza 11/20/2009 Hepatitis A (Havrix [address]) 09/02/2004,2003 Hepatitis B (Generic: Adult) 10/04/2010,04/04/20,12/29/2009 Influenza (FluMist) 07/04/2010 Influenza (Generic) 07/28/2019, 8,07/10/2017,08/05,07/31/2015,07/21/2013,06/29/2012 ,08/24/2011,08/21/2009,08/22/2008,04/2007,10/21/2006,10/12/2003, 3 Influenza Adult (Generic) 07/10/2023,,08/04/2021,06/23,07/28/2019,06/24/2018,07/24/2016 ,08/01/2014 MMR (MMRII) 07/31/2015,08/24/1992 MODERNA COVID-19 BIVALENT (1 2+), MRNA, LNP-S, PF 06/29/2022 MODERNA COVID-19 (12+) MRNA, LNP-S, PF, 100 MCG/ 0.5 ML DOSE 01/25/2021,12/28/2020 MODERNA COVID-19 (DAYCARE ASSISTANT MAIN ALON), MRNA, LNP-S, PF, 50 MCG/ [...] Sex Assigned at Female 10/10/2024 3:28 PM PERSONAL PROTECTION SPECIALIST Legal Sex Female 8:27 PM CDT Gender Identity Female 11/06/2024 2:42 PM PERSONAL PROTECTION SPECIALIST Sexual Orientation Not on file Last Filed Vital Signs Vital Sign Reading Time Taken Comments Blood Pressure 118/76 01/22/2025 8:[address] Lowe manual read Pulse 77 10/10/2024 3:50 PM PERSONAL PROTECTION SPECIALIST Temperature 36.7 C (98.1 F) 10/10/2024 3:50 PM PERSONAL PROTECTION SPECIALIST Respiratory Rate 24 10/10/2024 3:50 PM PERSONAL PROTECTION SPECIALIST Oxygen Saturation 100% 10/10/2024 3:5 0 PM PERSONAL PROTECTION SPECIALIST Inhaled Oxygen Concentration - - Weight 87.5 kg (193 lb) 10/10/2024 3:50 PM PERSONAL PROTECTION SPECIALIST Height 162.6 cm (5' 4) 10/10/2024 3:50 PM PERSONAL PROTECTION SPECIALIST verbal Body Mass Index 33.13 10/10/2024 3:50 PM PERSONAL PROTECTION SPECIALIST Plan of Treatment Upcoming Encounters Date Type Department Care Team (Late st Contact Info) Description 04/27/2025 2:40 PM CDT Office Visit [facility] [place] [address] [place] [phone] Aicha Call MD [address] [place] [address] Health Maintenance Due Date Last Done Comments [...] 11/27/2018 Meningococcal Vaccine Aged Out 03/01/1991 No ehath rehana eligible based on patient's age to complete this topic Hepatitis B Vaccines Completed 10/04/2010, 04/04/2010, 12/29/2009 Pneumococcal Vaccine: 50+ Years Completed 07/13/2023, 01/14/2020 Zoster Vaccines Completed 11/23/2023, 07/13/2023 COVID-19 Vaccine Completed 06/30/2024, , 08/04/2021, Additional history exists PHQ-2 (Physician [place]) Completed 01/22/2025 Meningococcal B Vaccine Aged Out [...] 01/22/2025 Type 2 diabetes mellitus with hyperlipidemia ([facility] HHS/HCC) COLLECT.CAPILLARY (FNGR,HEEL,EAR) Routine 01/22/2025 Type 2 diabetes mellitus with hyperlipidemia ([facility] HHS/HCC) LIPID PANEL Routine 09/06/2024 7:28 AM PERSONAL PROTECTION SPECIALIST Hyperlipidemia, unspecified hyperlipidemia type Class 1 obesity [...] content of this report. Referred By: AICHA CALL Interpreted By: Estrellita Aviles MD, 02/06/2025 9:30 PM Narrative 02/06/2025 9:53 PM CDT [address] [place] [address] [address] Examination: CT abdomen and pelvis without IV [...] Procedure Note Abelardo Mcallister MD - 02/06/[address] [address] Examination: CT abdomen and pelvis without IV [...] thecontent of this report. Referred By: AICHA CALL Interpreted By: Estrellita Aviles MD, 02/06/2025 9:30 PM us Aicha Call MD CT Final Result * URINE BACTERIA CULTURE (01/22/2025 1:40 PM CDT) SPEC DESCRIPTION URINE CLEAN CATCH 01/22/2025 1:40 PM CDT [facility] SPECIAL REQUESTS NO SPECIAL REQUEST 01/22/2025 1:40 PM CDT [facility] CULTURE RESULT NO GROWTH (< OR = 1,000 CFU/ML) 01/24/2025 5:07 AM CDT [facility] URINE SPECIMEN OBTAINED BY CLEAN CATCH PROCEDURE / Unknown 01/22/2025 1:40 PM CDT 01/22/2025 9:03 PM CDT us Aicha Call MD MICROBIOLOGY - GENERAL ORDERABLE S Final Result Performing Organization Address [facility] Co de Phone Number [facility] [address] [place] [address], [place] [phone] * A1C (BACK OFFICE) (01/22/2025) [facility] HGB A1C 5.9 % RODERICK JORDYN MARREROH 01/22/2025 us Aicha Call MD LABORATORY Final Result Performing Organization Address [facility]/ZIP Co de Phone Number RODERICK MARRERO [place] [address] [place] [address], [place] [phone] * COLLECT.CAPILLARY (FNGR,HEEL,EAR) (01/22/2025) us Aicha Call MD PROCEDURES-UNRESULTED Final Resu lt Performing Organization Address City/[facility]/ZIP Co de Phone Number [facility] * (ABNORMAL) URINALYSIS AUTO DIP (01/22/2025) Pathologist [facility] COLOR (U) YELLOW YELLOW RODERICK MARRERO, CANDY TRANSPARENCY CLOUDY(A) CLEAR SMITA MARRERO, CANDY GLUCOSE (U) NEGATIVE NEGATIVE MG/DL RODERICK MARRERO, CANDY BILIRUBIN (U) 1+ (SMALL)(A) NEGATIVE -CHRISTINA MARRERO, CANDY KETONES MG/DL (U) 5 (TRACE)(A) NEGATIVE MG/DL RODERICK MARRERO, CANDY SPECIFIC GRAVITY (U) 1.025 1.001 - 1.035 RODERICK MARRREO, CANDY BLOOD (U) LARGE (3+ Hemolyzed, About 250 rbc/uL)(A) NEGATIVE RODERICK MARRERO, CANDY U PH 6.5 5.0 - 9.0 RODERICK MARRERO, CANDY PROTEIN (U) 1+ (30)(A) NEGATIVE mg/dL RODERICK MARRERO, CANDY UROBILINOGEN 2.0(A) 0.2 - 1.0 EU/dL = mg/dL RODERICK MARRERO, CANDY NITRITES NEGATIVE NEGATIVE MG/DL RODERICK MARRERO, CANDY LEUKOCYTES (U) NEGATIVE NEGATIVE RUTH MARRERO, CANDY URINE SPECIMEN OBTAINED BY CLEAN CATCH PROCEDURE / Unknown 01/22/2025 us Aicha Call MD URINE ORDERABLES Final Result [facility] DOUGLAS [address] [place] [address], * LIPID PANEL (09/06/2024 7:28 AM PERSONAL PROTECTION SPECIALIST) Pathologist [facility] CHOLESTEROL 144 <200 mg/dL [facility] HDL 67 > OR = 50 mg/dL [facility] TRIGLYCERIDES 85 <150 mg/dL [facility] LDL (CALCULATED) 60 mg/dL (calc) [facility] Comment: Reference range: <100 Desirable range <100 mg/dL for primary prevention; <70 mg/dL for patients with CHD or diabetic patients with > or = 2 CHD risk factors. LDL-C is now calculated using the Mark-Solis calculation, which is a validated novel method providing better accuracy than the Friedewald equation in the estimation of LDL-C. Mark SS et al. SULEMA. 2013;310(19): 4059-3639 (http://education.Medlert/faq/HMY754) CHOL/HDL RATIO 2.1 <5.0 (calc) [facility] NON HDL CHOLESTEROL 77 <130 mg/dL (calc) [facility] Comment: For patients with diabetes plus 1 major ASCVD risk factor, treating to a non-HDL-C goal of <100 mg/dL (LDL-C of <70 mg/dL) is considered a therapeutic option. 09/06/2024 7:28 AM PERSONAL PROTECTION SPECIALIST 09/06/2024 7:30 AM PERSONAL PROTECTION SPECIALIST Narrative [facility] Intermolecular Javon ELLIOTT - 09/07/2024 7:42 AM PERSONAL PROTECTION SPECIALIST FASTING:YES FASTING: YES Resulting Agency Comment Performing Organization Information: Site ID: [place] Name: [facility] Address: [address] [place] [id number] Director: Chema Scott MD us Aicha Call MD LABORATORY Final Result [facility] [id number] [place] [address], [place] * MG SCREENING W LISA EARL [...] 1:Routine Screening Bilateral Comments: Ordered By: AICHA CALL Interpreted By: Alexis Damon MD, 04/18/2023 6:52 AM Aicha Call MD MAMMO Final Result from Last 3 Months or Most Recently Relevant to Health Maintenance [place] [address] [place] [address] Care Teams Mold Forms Builder Relationship Specialty Start Date End Date Aicha Call MD [address] [place] [address] PCP - General FAMILY PRACTICE 08/21/18
--- OUTSIDE RECORDS SUMMARY | 2025-03-27 01:36 | XMS_ITS | Clinical Summary ---
Author Organization [facility] Address [address] [place] [address] Care Team Providers Care Tobacco Blender Name Role Phone Unavailable Primary Care Provider [...]
--- OUTSIDE RECORDS SUMMARY | 2025-03-27 01:36 | XMS_ITS | Continuity of Care Document ---
Author Organization [facility] Address [address] [place] [address] Phone Care Team Providers Care Pressing Machine Operator Name Role Phone Miriam Thibodeaux PTA Unavailable [...] Provider Providers Copied on Encounter [facility], [place], [place], [id number], tel:[phone] [place] No Information 4 Carlos Eduardo Miriam. . [facility], [place], [place], [id number], tel:[phone] [place] No Information 4 [place] Miriam. . Referring Provider: Aicha Cuello, [address] [place], [address]. tel:[phone] [facility], [place], [place], [address], tel:[phone] [place] No Information 4 Kavon Mckeon. . Referring Provider: Aicha Cuello, [address] [place], [address]. tel:[phone] [facility], [place], [place], [address], tel:[phone] [place] No Information Aug- 2 Short Shannan. . Referring Provider: Aicha Cuello, [address] [place], [address]. tel:[phone] Family History Family Member Type Diagnosis Age At Onset No Information Payers Payer name Insurance type Covered republican ID Authordarion db(s) [facility] [id number] Social History Type Description Quantity Date Captured [...]
--- OUTSIDE RECORDS SUMMARY | 2025-03-27 01:36 | XMS_ITS ---
Author Organization [facility] Address [address] [place], [place] [id number] Care Team Providers Care Svp Of Digital Name Role Phone DIA ORTEGA Unavailable [phone] Aicha Cuello Unavailable Unavailable REASON FOR VISIT *Nail surgery follow-up Encounters Encounter Location Date Provider Diagnosis [facility] [address] [place], [place] [id number] 11/12/2023 DIA ORTEGA Plan Of Treatment No Information Progress Notes * SINCERE BRYANOB:1970 (54 yo F)Acc No.[id number]:11/12/2023 Patient: Thaddeus DELA CRUZ ELISABETH Provider: Alfonso ORTEGA :1970 A ge:53 Y S ex:Female Date:11/12/2023 Address:[address] [place], [place] [id number] Subjective: * Chief Complaints: * 1 . *Nail surgery follow-up. * Medical History: Objective: * Vitals: Assessment: Plan: * Treatment: * Billing Information: * Visit Code: * Procedure Codes: * Electronic signature of LUCIANO ORTEGA DPM on 03/27/2025 at 01:36 AM CDT Sign off status: Pending * Provider: Alfonso ORTEGA Date: 0 11/12/2023 Generated for Magi weathers/Yoel/eTransmitting on: 0 03/27/2025 01:36 AM CDT
--- NOTE | 2025-03-27 09:27 | WPDHPUPDATE1 ---
History and Physical Update Update Date/Time: 03/27/25 09:27 History and Physical has been reviewed, including an updated exam of the patient. There are NO changes in the patient's condition. Risks, benefits, and alternatives have been discussed and questions answered. Patient agrees to proceed with procedure.
--- NOTE | 2025-03-27 09:32 | P.PNAN_ITS ---
Anes - Initial Pre Proc Eval Procedure: Operation Date: 03/27/25 10:30 Proposed Procedures p Cystoscopy, Right Ureteroscopy, Possible Right Retrograde Pyelogram, Possible Right Stone Extraction, Possible Right Stent Placement, Possible Holmium Laser - Vaelnte Zuleta MD Date/Time: 03/27/25 09:32 Surgeon: Valente Zuleta MD Pre Op Diagnosis: right ureteral stone Patient Data Age: 54 Gender: F Height: 1.63 m Weight: 82.1 kg Last Vital Signs Temp 36.8 C 03/27/25 09:18 Pulse 67 03/27/25 09:18 Resp 18 03/27/25 09:18 BP 137/83 03/27/25 09:18 Pulse Ox 100 03/27/25 09:18 O2 Del Method Room Air 03/27/25 09:18 Allergies Allergy/AdvReac Type Severity Reaction Status Date / Time No Known Allergies Allergy Verified 03/27/25 09:17 Home Medications ?Medication ?Instructions ?Recorded ?Confirmed ?Type bupropion HCl 300 mg 24 hr tablet, 300 mg PO DAILY 03/03/25 03/27/25 History extended release cholecalciferol (vitamin D3) 25 25 mcg PO DAILY 03/03/25 03/27/25 History mcg (1,000 unit) capsule (Vitamin D3) ezetimibe 10 mg tablet 10 mg PO HS 03/03/25 03/27/25 History multivitamin (Daily Multi-Vitamin 1 tablet PO DAILY 03/03/25 03/27/25 History tablet) rosuvastatin 10 mg tablet 10 mg PO HS 03/03/25 03/27/25 History semaglutide 2 mg/dose (8 mg/3 mL) 2 mg subcut WEEKLY 03/03/25 03/27/25 History subcutaneous pen injector (Ozempic) tramadol 50 mg tablet 50 mg PO Q6H PRN pain #20 tabs 03/06/25 03/27/25 Rx Patient hx anesthesia problems: none Family hx anesthesia problems: none Results Review: All pre-operative results and documents have been reviewed as part of the pre- operative evaluation. [facility] Past Medical History Medical History (Updated 03/27/25 @ 09:32 by Keyur Crandall MD) Diabetes LISA (obstructive sleep apnea) Obesity Social History Social History Smoking status: Never smoker Alcohol intake: current Living arrangements: with family Spiritual care concerns: No Anes - Eval Final PreProcedure Day of Procedure 03/27/25 09:32 Patient weight: obese Heart: regular rate and rhythm Lungs: clear to auscultation Airway: Mallampati scale class II Neurological: alert and oriented Last oral intake: >/= 8 hours ASA classification: III Emergent: no Anesthetic plan: proceed Anesthesia type and monitoring: general LMA and standard monitoring Results Review: All pre-operative results and documents have been reviewed as part of the pre- operative evaluation. Informed Consent: The patient's anesthetic plan and its attendant risks and benefits were discussed with the patient/family/POA. Questions were solicited and answers provided to the satisfaction of the patient/family/POA.
[2025-03-27] MEDS: LACTATED RINGERS 1,000 ML 30 ML IV CONT (09:33)
[2025-03-27] MEDS: ceFAZolin 2 GM in SODIUM CHLORIDE 0.9% IV 50 ML 100 ML IVPB (10:20)
[2025-03-27] MEDS: LIDOCAINE 2% GEL UROJET 10 ML PKG MUCOUS MEM (10:30)
--- NOTE | 2025-03-27 11:03 | S_PTH ---
PATIENT: Armida Davis LOC: [facility] U#:[id number] AGE/SX: 54/F ROOM: RE03/27/[address]: Valente Zuleta, : 1970 BED: DIS: 03/27/2025 SPEC #: [id number] RECD: 03/27/25 13:06 STATUS: MARTHA REBarrera #: [id number] MELONY: 03/27/25 11:[address]: Song,Valente Green DEPT: [facility] Surgical RECD BY: Norma Chavira Tissues: A - Stone Procedures: Gross Exam Level 1 Crystalline Analysis
--- NOTE | 2025-03-27 11:11 | P.OP_ITS ---
Procedure Note - Detailed Date of Procedure 03/27/25 Pre-op Diagnosis right ureteral stone 6-7 mm Post-op Diagnosis Same Procedure Performed cystoscopy, right retrograde, right ureteroscopy with holmium laser, stone extraction, right ureteral stent placement 4.8 Croatian contour Surgeon Valente Zuleta MD Anesthesia General Description of Procedure patient was taken the operative suite correctly identified. Once anesthesia was obtained patient was placed in dorsal lithotomy position and prepped and dr aped usual sterile fashion. Twenty-two Croatian scope was inserted in the bladder. The right ureteral orifice was cannulated with a guidewire. The stone was impacted and the wire could not be manipulated past the stone. I thus placed a ureteral access sheath and a mini flexible ureteral scope. Again the ureter was tortuous the stone was impacted. Using a 200 micron fiber we fragmented the stone. It was a difficult case with a tortuosity but I was able to manipulate the scope past the stone once it was fragmented partially. Placed a wire and then fragmented the rest the stone. The largest pieces were retrieved sent for analysis. Pyelogram was performed to confirm placement of the stent. 4.8 Croatian contour stent was placed with the proximal end coiled in the upper pole and the distal in the bladder. 2% viscous lidocaine was inserted into the urethra patient is taken recovery stable condition. She will follow-up in 7-10 days with K[facility]. This completes dictation. Please send a copy of op note to my office Estimated Blood Loss 0 Drains Yes Packing No Pathology Yes Complications No immediate complications Condition Stable Disposition PACU
[2025-03-27] MEDS: oxyCODONE HCL (*CRX) 5 MG TAB IR PO (11:56)
== END 2025-03-27 12:45 | disposition home or self-care (01) ==
PROVIDERS: Visit Provider Urology
PROC: (CPT 52352; principal; 2025-03-27 10:30)
DX: N20.1 Calculus of ureter (principal); E11.9 Type 2 diabetes mellitus without complications; E66.9 Obesity, unspecified; Z68.31 Body mass index [BMI] 31.0-31.9, adult
CPT/HCPCS: 52356; 74420; 82365; 82948; 88300; J0690; A9270; C1769; C1894; C2617; J1100; J2250; J2405; J2704; J3010; J7120; Q9966

== ENCOUNTER 2025-05-22 13:40 | Outpatient (CLI) | payer BC, SELFPAY ==
--- OUTSIDE RECORDS SUMMARY | 2018-10-11 01:00 | XMS_ITS | Encounter Summary ---
Author Organization [facility] Address [address] [place] [address] Care Team Providers Care Roll Edge Stitcher Hand Name Role Phone Sari Cali MD Primary Care Provider Maryam Hilario MD Unavailable [phone] Reason for Visit * Diagnostic Imaging (Routine) - Closed Specialty Diagnoses / Procedures Referred By Renee pablo Referred To Contact Procedures Breast Imaging Screening Outside Reference Referral, Self Referral ID Status Reason Start Date Expiration Date Visits Re quested Visits Authorized [id number] Closed 01/12/2022 02/11/2023 1 1 Encounter Details Date Type Department Care Team (Late st Contact Info) Description 10/11/[address] 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 There will be no report generated by a [facility] Radiologist. Narrative RAD_MAMMO_BJH - 01/12/2022 10:01 AM CDT EXAMINATION: Images For Reference Purposes Only us Self Referral IMG MAMMO PROCEDURES Final Resul t RAD_MAMMO_BJ documented in this encounter Visit Diagnoses Not on filedocumented in this encounter Additional Health Concerns Infection Onset Date Last Indicated Resolved Time MRSA Comment:Germ watcher auto flagging 07/24/2013 07/24/201305/04 5:00 AM CDT documented as of this encounter Care Teams Roll Edge Stitcher Hand Relationship Specialty Start Date End Date Sari Cali MD [address] [facility] [address] [place] [address] PCP - General 01/15/17 10/14/18 Maryam Muller MD [address] [place] [address] Internal Medicine 02/14/17 10/14/18 documented as of this encounter
--- OUTSIDE RECORDS SUMMARY | 2020-12-15 | XMS_ITS | Encounter Summary ---
Author Organization [facility] Healthcare Address [address] [place] [address] Care Team Providers Care Equity Trader Name Role Phone Aicha Cuello MD Primary Care Provider Reason for Visit * Diagnostic Imaging (Routine) - Closed Specialty Diagnoses / Procedures Referred By Erisac t Referred To Contact Diagnoses Lung nodule Procedures Breast Imaging Screening Outside Reference Referral, Self Referral ID Status Reason Start Date Expiration Date Visits Re quested Visits Authorized [id number] Closed 01/12/2022 02/11/2023 1 1 Encounter Details Date Type Department Care Team (Late st Contact Info) Description 12/15/2020 Hospital Encounter [facility]iology [facility] [address] [place] [address] Social History Tobacco Use Types Packs/Day Years [...] on file Legal Sex Female 10:50 PM RHINOLOGIST Gender Identity Female 10/15/2018 11:21 AM RHINOLOGIST Sexual Orientation Not on file Occupation Industry Job Start Date Job End Date [employer] Not on file Not on file Not [...] documented as of this encounter Care Teams Equity Trader Relationship Specialty Start Date End Date Aicha Cuello MD [facility] [place] [place] [address] PCP - General Family Practice 10/15/18 documented as of this encounter
--- OUTSIDE RECORDS SUMMARY | 2025-03-24 12:30 | XMS_ITS ---
Author Organization [facility] [place] ([address]) Address [address] [place] [address] Care Team Providers Care It Infrastructure Engineer Name Role Phone Aicha Cuello Primary Care Provider Zackery Manning Unavailable [phone] Rashid Palafox Unavailable [phone] REASON FOR VISIT SCIT - Traditional Schedule Allergy Immunotherapy Encounters Encounter Location Date Provider Diagnosis [facility] - [place] [address] [place] [address] 03/24/2025 Rashid Palafox Allergic rhinitis due to [...] 1 Week, Reason: Provider Name:Rashid Palafox , 05/26/2025 03:30:00 PM, [address] [place], [address], Progress Notes * Shant DAVISraDOB:1970 (54 yo F)Acc No.[id number]:03/24/2025 SCIT-Aeroallergen Patient: Armida JONES Provider: Nayeli Palafox MD :1970 A ge:54 Y S ex:Female Date:03/24/2025 Address:[address] [place], [place] [address] Pcp:Aicha Cuello Subjective: * Chief Complaints: * [...] Information: * Visit Code: * Procedure Codes: 03046 IMMUNOTHERAPY INJECTIONS. * Electronic signature of Cassidy Palafox MD, FAAAAI on 05/22/2025 at 02:06 PM CDT Sign off status: Pending * Provider: Nayeli Palafox MD Date: 0 03/24/2025 Generated for Magi Varma/eTransmitting on: 0 05/22/2025 02:06 PM CDT History and Physical Notes * [...]
--- NOTE | ~2025-05-22 | XR_ITS ---
EXAM/PROCEDURE: XR abdomen/kub 1V - 05/22/2025 13:55 CDT HISTORY: 54 years old Female with right ureteral stone COMPARISON: None available. TECHNIQUE: AP view(s) of the abdomen. FINDINGS: The bowel gas pattern is normal. There is no evidence for obstruction. No free intraperitoneal air is identified on this supine radiograph. 0.1 cm radiodensity in right mid abdomen may represent right mid ureteral stone. No gross bony abnormalities are seen. IMPRESSION: 0.1 cm radiodensity in right mid abdomen may represent right mid ureteral stone. Reviewed, dictated and finalized at location N. IMPRESSION: 0.1 cm radiodensity in right mid abdomen may represent right mid ureteral stone .
--- NOTE | ~2025-05-22 | CT_ITS ---
EXAM: CT abdomen pelvis wo con - 05/22/2025 14:02 CDT History: 54 years old Female with right ureteral stone TECHNIQUE: Multidetector CT of the abdomen and pelvis without contrast. Coronal and sagittal reformats were also provided for review. Automatic exposure control was used for this study. COMPARISON: None Available. FINDINGS: Evaluation of bowel and hollow viscera is limited in the absence of oral contrast. VISUALIZED CHEST: Visualized lungs are clear. ABDOMEN and PELVIS: LIVER: Within normal limits. GALLBLADDER: No calcified gallstones. BILE DUCTS: No dilatation. SPLEEN: Within normal limits. PANCREAS: Within normal limits. ADRENAL GLANDS: Within normal limits. KIDNEYS and URETERS: No hydronephrosis or hydroureter. No nephroureterolithiasis. URINARY BLADDER: 8 mm calculus in the right proximal ureter causing mild upstream hydroureteronephrosis. Multiple additional 2 mm calculi are seen in the lower pole of the right kidney. No left nephrolithiasis or hydroureteronephrosis. STOMACH and BOWEL: No abnormal bowel wall thickening. No obstruction or pneumatosis. Normal appendix. Postsurgical changes of gastric bypass. REPRODUCTIVE ORGANS: Within normal limits. MESENTERY/PERITONEAL CAVITY: No free fluid or pneumoperitoneum. LYMPH NODES: No abdominal or pelvic lymphadenopathy. ABDOMINAL WALL: Small fat-containing umbilical hernia. VASCULATURE: Within normal limits. MUSCULOSKELETAL: Multilevel degenerative changes of the spine. IMPRESSION: 8 mm calculus in the right proximal ureter causing mild upstream hydroureteronephrosis. Multiple additional 2 mm calculi are seen in the lower pole of the right kidney. No left nephrolithiasis or hydroureteronephrosis. Reviewed, dictated and finalized at location N. IMPRESSION: 8 mm calculus in the right proximal ureter causing mild upstream hydroureterone phrosis. Multiple additional 2 mm calculi are seen in the lower pole of the rig ht kidney. No left nephrolithiasis or hydroureteronephrosis.
--- OUTSIDE RECORDS SUMMARY | 2025-05-22 14:06 | XMS_ITS | Encounter Summary ---
Author Organization [facility] Address 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
--- OUTSIDE RECORDS SUMMARY | 2025-05-22 14:06 | XMS_ITS | Encounter Summary ---
Author Organization [facility] Address [address] [place] [address] Phone Care Team Providers Care Crm Marketing Manager Name Role Phone Aicha Cuello MD Primary Care Provider Mariola Suarez Unavailable [phone] Jm Boyle MD Unavailable [phone] Vincent Byrd MD Unavailable [phone] Reason for Visit * Reason Onset Date Comments Prior Auth 05/20/2025 ozempic 05/20/2025 Encounter Details Date Type Department Care Team (Late st Contact Info) Description 05/20/2025 Telephone [facility] Medicine Endocrinology Metabolism and Lipid [address] [facility] Floor [address], [address] [place] [address] Marisa Sandhu RN Prior Auth; ozempic Social History Tobacco Use Types Packs/Day Years [...] on file 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 JOSE jones documented in this encounter Plan of Treatment Not on file documented as of this encounter Visit Diagnoses Not on filedocumented in this encounter Care Teams Crm Marketing Manager Relationship Specialty Start Date End Date Aicha Cuello MD [address] [place] [address] PCP - General Family Practice 10/15/18 Mariola Suarez PA [address] [place] [address] Physician Human Factors Ergonomist Dermatology 04/22/21 Jm Boyle MD [address] [place] [address] Foil Spooler Dermatology 04/22/21 Vincent Byrd MD [address] [place] [address] Consulting Physician Plastic Surgery 12/05/22 documented as of this encounter
--- OUTSIDE RECORDS SUMMARY | 2025-05-22 14:06 | XMS_ITS | Encounter Summary ---
Author Organization [employer] Address 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
--- OUTSIDE RECORDS SUMMARY | 2025-05-22 14:06 | XMS_ITS | Encounter Summary ---
Author Organization [employer] Address [address] [place] [address] Care Team Providers Care Used Car Renovator Name Role Phone Aicha Cuello MD Primary Care Provider Encounter Details Date Type Department Care Team (Late st Contact Info) Description 06/29/1998 Outpatient Historical HIS 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
--- OUTSIDE RECORDS SUMMARY | 2025-05-22 14:06 | XMS_ITS | Encounter Summary ---
Author Organization [facility] [email or web address] Address 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
--- OUTSIDE RECORDS SUMMARY | 2025-05-22 14:06 | XMS_ITS | Encounter Summary ---
Author Organization [employer] Address 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
--- OUTSIDE RECORDS SUMMARY | 2025-05-22 14:06 | XMS_ITS | Clinical Summary ---
Author Organization [facility] Address [address] [place] [address] Care Team Providers Care Critical Care Cns Name Role Phone Aicha Cuello MD Primary Care Provider Mariola Suarez Unavailable [phone] Jm Boyle MD Unavailable [phone] Vincent Byrd MD Unavailable [phone] Allergies Active Allergy Reactions Criticality Noted Date [...] hours as needed for pain 30 tablet Active acetaminophen (TYLENOL) 500 mg tablet Take [...] mg total) by mouth nightly as needed Active cephalexin (KEFLEX) 500 mg capsule Take 1 capsule (500 mg total) by mouth 3 (three) times a day 025 Active sulfamethoxazole-trimet hoprim (BACTRIM DS) 800-160 mg per tablet Take 1 tablet by mouth every 12 (twelve) hours 025 Active tamsulosin (FLOMAX) 0.4 mg extended release capsule 025 Active testosterone 50 mg/5 gram (1 %) Apply 4 drops to the forearms daily for decreased libido 30 g 1 025 Active testosterone 50 mg/5 gram (1 %) Apply 2-3 drops to the forearms daily for decreased libido 15 g 2 025 2024 Disconti nued(Reo rder) Active Problems Patient Care Coordination No te Formatting of this note migh t be different from the original. Referring provider: Dr. Dayrno Real Ms. Armida Villegas is a 50-year-old [...] (11/22/2022): Added automatically from request for surgery [id number] Allergic rhinitis due to animal hair and [...] Encounters Date Type Department Care Team Description 05/20/2025 Telephone [facility] Metabolism and Lipid [address] [facility] Floor [address], [address] [place] [address] Marisa Sandhu RN Prior Auth; ozempic 03/09/2025 1:00 PM CDT Office Visit [facility] Medicine Obstetrics and Gynecology [address] [facility] 1st Floor [address] [place] [address] Isaura Olivares MD Decreased sexual desire (Primary [...] 06/2020 uses sometimes Type 2 diabetes mellitus diet co ntrolled-no CGM, insulin, or oral meds HLD (hyperlipidemia) [...] on file Legal Sex Female 10:50 PM BIOCHEMICAL ENGINEER Gender Identity Female 10/15/2018 11:21 AM BIOCHEMICAL ENGINEER Sexual Orientation Not on file Occupation [...] 37 C (98.6 F) 10/28/2024 10:45 AM BIOCHEMICAL ENGINEER Respiratory Rate 18 10/28/2024 10:45 AM BIOCHEMICAL ENGINEER Oxygen Saturation 100% 05/01/2024 12:10 PM CDT [...] 04/17/2024 04/17/2023, 04/17/2023, 01/09/2022, Additional history exists Regular Well Visit/Exam 18-64 07/24/2024, 11/18/2021, 10/06/2020, Additional history exists Hemoglobin A1C 10/18/2024 04/17/2024, 03/17, 05/12/2022, Additional history exists eGFR 04/17/2025 04/17/2024, 03/2020, 04/02/2020, Additional history exists Covid-19 Vaccine ( - 2024-2 6 season) 2025 08/04/2021, 01/25/2021, 12/28/2020 Influenza Vaccine (#1) 2025 , 07/10/2023, 06/29/2022, Additional history exists Lipid Panel 09/06/2025 09/06/2024, 06/18, 03/23/2023, Additional history exists Hepatitis B Screening Completed 10/04/2010 , 04/04/2010, 12/29/2009 Cervical Cancer Screening Discontinued 11/18/2021, 06/2017 Hepatitis C Screening Completed 11/25/2021, 017 Zoster Vaccine Completed 11/23/2023, 07/13/2023 Procedures Procedure Name Priority Date/Time Associated Diagnosis Comments TESTOSTERONE, TOTAL, LC/MS Routine 04/15/2025 3:54 PM CDT Surgical menopause EGFR Routine 04/17/2024 11:34 AM CDT Preoperative [...] HEPATITIS C ANTIBODY Routine 11/25/2021 2:33 PM BIOCHEMICAL ENGINEER Screening for STD (sexually transmitted disease) THINPREP TIS PAP AND HR HPV DNA REFLEX GENOTYPES 16,18 Routine 11/18/2021 4:58 PM BIOCHEMICAL ENGINEER from Last 3 Months or Most Recently Relevant to Health Maintenance Results * Testosterone, Total, LC/MS (04/15/2025 3:54 PM CDT) Testosterone 8 2 - 45 ng/dL [facility] Comment: For additional information, please refer to https://education.Racktivity.PataFoods/faq/TotalTestosteroneLCMSMS (This link is being provided for informational/educational purposes only.) (Note) This test was developed and its analytical performance characteristics have been determined by [employer]. It has not been cleared or approved by the FDA. This assay has been validated pursuant to the CLIA regulations and is used for clinical purposes. [facility] [employer] [address] [address],[address] [facility] [address] Chelsey Díaz MD, PhD Blood 04/15/2025 3:54 PM CDT 04/15/2025 3:55 PM CDT Isaura Olivares MD LAB BLOOD ORDERABLES Fi nal Result [facility] [address] [address], [address] [place] [address] * eGFR (04/17/2024 11:34 AM CDT) eGFR [...] ORDERABLES Fi nal Result SRIDEVI CONNELL [facility] Department [place] [address] * (ABNORMAL) POCT hemoglobin A1c (04/17/2024 11:09 [...] and children were not included. (Diabetes Care 31:8294-6526, 2008). The eAG is not equivalent to a fasting glucose. Blood 04/17/2024 11:0 9 AM CDT 04/17/2024 11:09 AM CDT us Isaura Olivares MD POINT OF CARE TEST ROGER MCCLENDON Final Result [facility] [place] [address] * Albumin Creatinine Ratio, Urine (03/28/2023 3:11 PM CDT) [facility] Creatinine, ur 130 20 - 275 mg/dL [...] URINE ORDERABLES Zora l Result [facility] [address] [address] [address] * Lipid panel (05/12/2022) Blood specimen (specimen) us Toña Sandoval MD LAB BLOOD ORDERABLES Zora barrera Result [facility] * SCREENING MAMMOGRAM BILATERAL W LISA (01/09/2022 3:51 PM CDT) Anatomical Region Laterality Modality Breast Bilateral Mammography Narrative 01/12/2022 12:28 PM CDT Mammogram Technique: Bilateral Digital Breast Tomosynthesis, Bilateral C-view 2D Screening mammogram. Views obtained: bilateral craniocaudal and bilateral mediolateral oblique. Computer Aided Detection was performed. Mammogram Findings: The present examination has been compared to prior imaging studies performed at [facility] on 10/29/2015, and at [facility]. [place], [place] on 10/11/2018 and 12/15/2020. There are [...] compared to prior imaging studies performed at [facility] on 10/29/2015,and at [facility]. [place] on 10/11/2018 and 12/15/2020. There are scattered areas of fibroglandular density. There is no suspicious abnormality in either breast. Impression: There is no mammographic evidence of malignancy. Annual screening mammography is recommended. OVERALL FINAL ASSESSMENT: BI-RADS CATEGORY 1: Negative. Linn Gómez COLLAR STARCHER IMG MAMMO PROCEDURES Final Result * Hepatitis C antibody (11/25/2021 2:33 PM BIOCHEMICAL ENGINEER) Hep C Ab NON-REACTI VE NON-REACT DANELLE [facility] SIGNAL TO CUT-OFF 0.04 <1.00 [facility] Comment: HCV antibody was non-reactive. There is no laboratory evidence of HCV infection. In most cases, no further action is required. However, if recent HCV exposure is suspected, a test for HCV RNA (test code 20523) is suggested. For additional information please refer to http://education.[employer]/faq/LTD90m6 (This link is being provided for informational/ educational purposes only.) Blood specimen (specimen) 11/25/2021 2:33 PM BIOCHEMICAL ENGINEER 11/25/2021 2:34 PM BIOCHEMICAL ENGINEER Linn Gómez NP LAB MICROBIOLOGY - [facility] ORDERABLES Final Result [facility] [address] [place] [address] * THINPREP TIS PAP AND HR HPV DNA REFLEX GENOTYPES 16,18 (11/18/2021 4:58 PM BIOCHEMICAL ENGINEER) Pathologist [facility] CLINICAL INFORMATION: SCREENING PERIMENOPAUSAL [facility] LMP 11/02/2021 [facility] Previous Pap INFORMATION NOT PROVIDED [facility] Prev. Bx INFORMATION NOT PROVIDED [facility] SOURCE: Cervix, Endocervix [facility] Pap, specimen adequacy Satisfactory for evaluation. Endocervical/mckee sformation zone component present. [facility] HPV interp Negative for intraepithelial lesion or malignancy. [facility] COMMENTS This Pap test has been evaluated with computer assisted technology. [facility] Firearms Inspector MMW, CT(ASCP) CT screening location: [place] [address] [place], [address] [employer] [facility] Comment [facility] Comment: EXPLANATORY NOTE: The Pap is a [...] High Risk E6/E7 Not Detected NOT DETECTED [facility] Comment: Not Detected High Risk HPV types (16,18,31,33,35,39,45,51,52, 56,58,59,66,68) were not detected. Other HPV types which cause anogenital lesions may be present. The significance of the other types of HPV in malignant processes has not been established. Methodology: Real Time PCR 11/18/2021 4:58 PM BIOCHEMICAL ENGINEER 11/21/2021 5:31 AM BIOCHEMICAL ENGINEER Linn Gómez NP LAB CYTOLOGY ORDERAB LES Final Result [facility] [address] [place] [address] [facility] [address] [facility] [place] [address] from Last 3 Months or Most Recently Relevant to Health Maintenance Insurance [facility] BCBS [facility] FEDERAL Care Teams Critical Care Cns Relationship Specialty Start Date End Date Aicha Cuello MD [address] [place] [address] PCP - General Family Practice 10/15/18 Mariola Suarez PA [address] [place] [address] Physician Speaker Mounter Dermatology 04/22/21 Jm Boyle MD [address] [place] [address] Cotton Seed Culler Dermatology 04/22/21 Vincent Byrd MD [address] [place] [address] Consulting Physician Plastic Surgery 12/05/22
--- OUTSIDE RECORDS SUMMARY | 2025-05-22 14:06 | XMS_ITS | Patient Health Record ---
Author Organization [facility] [employer] [place] ([address]) Address [address] [place] [address] Care Team Providers Care Laborer Cement Gun Placing Name Role Phone Aicha Cuello Primary Care Provider UnavailZackery Lakhani Unavailable [phone] Rashid Palafox Unavailable [phone] Anita Vela Unavailable [phone] Allergies No Known Allergies Reason For Referral No Information Medications Medication SIG (Take, Route, Frequency, Duration) Notes Start Date End Date Status FLUoxetine HCl 40 MG 1 cap(s) orally onc e a day; Duration: 30 day(s) 10/12/2021 Not-Mario ing SIT (TRADITIONAL) variable per schedule SC per schedule; Duration: to be determined Active Famotidine 40 mg 1 tab(s) orally 30 m ins prior to SCIT; Duration: 30 days Active Gabapentin 300 MG ; Duration: 30 Not-Taking [...] prior to SCIT; Duration: 90 days Not-Taking Rosuvastatin Calcium 10 MG 1 tab(s) orally once a day; Duration: 30 day(s) 10/12/2021 Active MONTELUKAST 10 mg 1 tab(s) orally once a day; Duration: 30 day(s) Active Auvi-Q 0.3 MG/0.3ML as directed intramuscularly once; Duration: 30 days Active AUVI -Q 0.3 mg as directed intramuscularly once; Duration: 30 days Active Fluticasone Propionate 50 MCG/ACT 2 spray(s) in each nostril BID; Duration: 30 day(s) Not-Taking NASAL WASHES N/A as directed intranas ally as needed; Duration: 30 Active FAMOTIDINE 40 mg 1 tab(s) orally 30 m ins prior to SCIT; Duration: 30 days Active Fexofenadine HCl 180 MG 1 tab(s) orally Daily; Duration: 30 day(s) Active Sertraline HCl 50 MG 1 tab(s) orally onc e a day; Duration: 30 day(s) 10/12/2021 Not-Mario ing Montelukast Sodium 10 MG 1 tab(s) orally once a day; Duration: 30 day(s) Active FEXOFENADINE 180 mg 1 tab(s) orally Ramona y; Duration: 30 day(s) Active Pioglitazone HCl 15 MG 1 tab(s) orally o nce a day; Duration: 30 day(s) 10/12/2021 Not-Mario ing FLUTICASONE NASAL 50 mcg/inh 2 spray(s) in each nostril BID; Duration: 30 day(s) Active Ezetimibe 10 MG 1 tab(s) orally once a day; Duration: 30 day(s) 10/12/2021 Active Immunizations Vaccine Route [...] Problem Type II diabetes mellitus without complication (939864822) Type 2 diabetes mellitus without complications (E11.9) Active confirmed Problem Chronic allergic conjunctivitis (57493220) Other chronic allergic conjunctivitis (H10.45) Active confirmed Problem Allergic rhinitis caused by pollen (disorder) (83293272) Allergic rhinitis due to pollen (J30.1) Active confirmed Problem Allergic rhinitis (05780679) Other allergic rhinitis (J30.89) Active confirmed Problem Allergic rhinitis caused by animal hair and dander (964743053329649) Allergic rhinitis due to animal (cat) (dog) hair and dander (J30.81) Active confirmed Problem Eruption of skin (039859613) Rash and other nonspecific skin eruption (R21) Active confirmed Problem Elevated blood pressure reading without diagnosis of hypertension (745879500) Elevated blood-pressure reading, without diagnosis of hypertension (R03.0) Active confirmed Problem Pure hypercholesterolemia (458353339) Pure hypercholesterol emia, unspecified (E78.00) Active confirmed Vital Signs Oximetry 99 % 03/25/2025 Blood pressure diastolic 81 mm Hg 03/25/2025 Height 64 in 03/25/2025 Blood pressure systolic 132 mm Hg 03/25/2025 Weight 184.4 lbs 03/25/2025 BMI 31.65 kg/m2 03/25/2025 Encounters Encounter Location Date Provider Diagnosis [address] [place] [address] 04/22/2025 Rashid Palafox Allergic rhinitis du e to pollen J30.1 ; Other allergic rhinitis J30.89 ; Allergic rhinitis due to animal (cat) (dog) hair and dander J30.81 and Other chronic allergic conjunctivitis H10.[address] [place] [address] 02/24/2025 Rashid Palafox Allergic rhinitis du e to pollen J30.1 ; Other allergic rhinitis J30.89 ; Allergic rhinitis due to animal (cat) (dog) hair and dander J30.81 and Other chronic allergic conjunctivitis H10.45 [facility] [address] [place] [address] 01/27/2025 Rashid Palafox Allergic rhinitis du e to pollen J30.1 ; Other allergic rhinitis J30.89 ; Allergic rhinitis due to animal (cat) (dog) hair and dander J30.81 and Other chronic allergic conjunctivitis H10.[address] [place] [address] 12/30/2024 Rashid Palafox Allergic rhinitis du e to pollen J30.1 ; Other allergic rhinitis J30.89 ; Allergic rhinitis due to animal (cat) (dog) hair and dander J30.81 and Other chronic [facility] H10.45 [facility] [address] [place] [address] 11/26/2024 Rashid Palafox Allergic rhinitis du e to pollen J30.1 ; Other allergic rhinitis J30.89 ; Allergic rhinitis due to animal (cat) (dog) hair and dander J30.81 and Other chronic [facility]iv[facility] H10.45 [facility] [address] [place] [address] 10/29/2024 Rashid Palafox Allergic rhinitis du e to pollen J30.1 ; Other allergic rhinitis J30.89 ; Allergic rhinitis due to animal (cat) (dog) hair and dander J30.81 and Other chronic allergic conjunctivitis H10.45 [facility] [address] [place] [address] 10/22/2024 Rashid Palafox Allergic rhinitis du e to pollen J30.1 ; Other allergic rhinitis J30.89 ; Allergic rhinitis due to animal (cat) (dog) hair and dander J30.81 and Other chronic allergic conjunctivitis H10.45 [facility] [address] [place] [address] 10/01/2024 Rashid Palafox Allergic rhinitis du e to pollen J30.1 ; Other allergic rhinitis J30.89 ; Allergic rhinitis due to animal (cat) (dog) hair and dander J30.81 and Other chronic allergic conjunctivitis H10.45 [facility] [address] [place] [address] 08/18/2024 Rashid Palafox Allergic rhinitis du e to pollen J30.1 ; Other allergic rhinitis J30.89 ; Allergic rhinitis due to animal (cat) (dog) hair and dander J30.81 and Other chronic allergic conjunctivitis H10.45 [facility] [address] [place] [address] 03/25/2025 Anita Vela Allergic rhinitis du e to pollen J30.1 ; Allergic rhinitis due to animal (cat) (dog) hair and dander J30.81 ; Other allergic rhinitis J30.89 ; Other chronic allergic conjunctivitis H10.45 ; Rash and other nonspecific skin eruption R21 and Elevated blood-pressure reading, without diagnosis of hypertension R03.0 [address] [place] [address] 10/15/2024 Zackery Ho Allergic rhinitis du e [...] Treatment Notes Treatment Clinical Notes Section Notes 08/18/2024 Allergic rhinitis due to pollen (ICD-10 [...] as an adjunctive treatment to current regimen 04/22/2025 Allergic rhinitis due to pollen (ICD-10 - [...] 2 hours after each SCIT visit. - Armdia reports significant symptom improvement since starting SCIT. [...] an adjunctive treatment to current regimen 02/24/2025 Allergic rhinitis due to pollen (ICD-10 - J30.1) 12/30/2024 Allergic rhinitis due to pollen (ICD-10 - J30.1) 11/26/2024 Allergic rhinitis due to pollen (ICD-10 - J30.1) 10/29/2024 Allergic rhinitis due to pollen (ICD-10 - J30.1) 10/22/2024 Allergic rhinitis due to pollen (ICD-10 - J30.1) 01/27/2025 Allergic rhinitis due to pollen (ICD-10 - J30.1) 01/27/2025 Other allergic rhinitis (ICD-10 - J30.89) 10/22/2024 Other allergic rhinitis (ICD-10 - J30.89) 10/29/2024 Other allergic rhinitis (ICD-10 - J30.89) 11/26/2024 Other allergic rhinitis (ICD-10 - J30.89) 12/30/2024 Other allergic rhinitis (ICD-10 - J30.89) 02/24/2025 Other allergic rhinitis (ICD-10 - J30.89) 03/25/2025 Other allergic rhinitis (ICD-10 - J30.89) Follow allergen avoidance, meds and continue SCIT as an adjunctive treatment to current regimen 04/22/2025 Other allergic rhinitis (ICD-10 - J30.89) 10/15/2024 Other allergic rhinitis (ICD-10 - J30.89) Follow allergen avoidance, meds and continue SCIT as an adjunctive treatment to current regimen 10/01/2024 Other allergic rhinitis (ICD-10 - J30.89) 08/18/2024 Other allergic rhinitis (ICD-10 - J30.89) 08/18/2024 Allergic rhinitis due to animal (cat) (dog) hair and dander (ICD-10 - J30.81) 10/15/2024 Other chronic allergic conjunctivitis (ICD-10 - H10.45) Given ocular signs and symptoms I encouraged allergy avoidance measures and meds as above. If symptoms persist, consider adding additional medications including intraocular antihistamine/mast cell stabilizer, PRN and continue SCIT as an adjunctive measure 10/01/2024 Allergic rhinitis due to animal (cat) (dog) hair and dander (ICD-10 - J30.81) 04/22/2025 Allergic rhinitis due to animal (cat) (dog) hair and dander (ICD-10 - J30.81) 03/25/2025 Other chronic allergic conjunctivitis (ICD-10 - H10.45) Given ocular signs and symptoms I encouraged allergy avoidance measures and meds as above. If symptoms persist, consider adding additional medications including intraocular antihistamine/mast cell stabilizer, PRN and continue SCIT as an adjunctive measure 02/24/2025 Allergic rhinitis due to animal (cat) (dog) hair and dander (ICD-10 - J30.81) 12/30/2024 Allergic rhinitis due to animal (cat) (dog) hair and dander (ICD-10 - J30.81) 11/26/2024 Allergic rhinitis due to animal (cat) (dog) hair and dander (ICD-10 - J30.81) 10/29/2024 Allergic rhinitis due to animal (cat) (dog) hair and dander (ICD-10 - J30.81) 10/22/2024 Allergic rhinitis due to animal (cat) (dog) hair and dander (ICD-10 - J30.81) 01/27/2025 Allergic rhinitis due to animal (cat) (dog) hair and dander (ICD-10 - J30.81) 01/27/2025 Other chronic allergic conjunctivitis (ICD-10 - H10.45) 02/24/2025 Other chronic allergic conjunctivitis (ICD-10 - H10.45) 10/22/2024 Other chronic allergic conjunctivitis (ICD-10 - H10.45) 10/29/2024 Other chronic allergic conjunctivitis (ICD-10 - H10.45) 11/26/2024 Other chronic allergic conjunctivitis (ICD-10 - H10.45) 12/30/2024 Other chronic allergic conjunctivitis (ICD-10 - H10.45) 03/25/2025 Rash and other nonspecific skin eruption (ICD-10 - R21) Noted history of atopic dermatitis, generally to the arms and neck. Will typically treat with topical steroids per PCP. Last occurred 3 years ago. Continue to monitor 04/22/2025 Other chronic allergic conjunctivitis (ICD-10 - H10.45) [...] Of Treatment Next Appt Details Provider Name:Rashid HKurt Palafox , 05/26/2025 03:30:00 PM, [address] [place] [address], [phone], Insurance Providers Payer Name Payer Address Payer Phone Subscriber Number Group Number Insured Name Patient Relationship to Insured Coverage Start Date Coverage End Date [facility] [address] [place] [address] [id number] Armida Davis Self - patient is [...]
--- OUTSIDE RECORDS SUMMARY | 2025-05-22 14:07 | XMS_ITS | Clinical Summary ---
Author Organization [facility] Address [address] [place] [address] Care Team Providers Care Solar Consultant Name Role Phone Unavailable Primary Care Provider [...]
--- OUTSIDE RECORDS SUMMARY | 2025-05-22 14:07 | XMS_ITS | Patient Health Record ---
Author Organization [facility] Address [address] [place], [place] [id number] Care Team Providers Care Building Pressure Washer Name Role Phone DIA ORTEGA Unavailable [phone] Aicha Cuello Unavailable Unavailable Allergies No Known [...] Coverage Start Date Coverage End Date [facility] ([facility]) ATTN CLAIMS [address] [place] [address] [id number] ELISABETH BRYAN Self - patient is the insured Medical (General) History Medical History History ICD Code kidney stones Sleep apnea Diabetic
--- OUTSIDE RECORDS SUMMARY | 2025-05-22 14:07 | XMS_ITS | Clinical Summary ---
Author Organization [facility] Address [address] [place] [address] Phone Care Team Providers Care Retort Condenser Attendant Name Role Phone Aicha Cuello MD Primary Care Provider Allergies Active Allergy Reactions Criticality Noted Date Comments Amoxicillin Diarrhea Medium 04/19/2020 Medications empagliflozin (Jardiance) 10 mg tablet Take 10 mg by mouth daily special technical operations officer. Active atorvastatin (LIPITOR) 40 mg tablet Take [...] Encounters Date Type Department Care Team Description 05/19/2025 External Device Data [facility] ABSTRACTION Provider, Abstract 05/19/2025 External Device Data [facility]STRACTION Provider, Abstract 05/19/2025 External Device Data [facility]STRACTION Provider, Abstract 05/06/2025 External Device Data [facility]STRACTION Provider, Abstract 04/01/2025 External Device Data [facility]CTION Provider, Abstract 04/01/2025 External Device Data [facility] ABSTRACTION Provider, Abstract 04/01/2025 External Device Data [facility] ABSTRACTION Provider, Abstract 03/31/2025 External Device Data [facility] ABSTRACTION Provider, Abstract 03/10/2025 External Device Data [facility] ABSTRACTION Provider, [...] on file Legal Sex Female 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 Gender Identity Not on file Sexual Orientation [...] 04/17/20 23, 04/17/2023, 01/09/2022, Additional history exists DIABETES HBA1C Q 6 MONTHS 10/18/20242023, 01/23/2024, 04/02/2020, Additional history exists INFLUENZA VACCINE (#1) 2025 , 04/28/2020, 07/28/2019, Additional history exists COVID-19 Vaccine (2024-2 6 season) 2025 06/29/2022, 08/04/2021, 01/25/2021, Additional history exists COLORECTAL SCREENING 11/27/2028 11/27/2018 Colorectal Cancer Screening 11/27/2028 Medical Devices Implanted Type Area Travel Information Center Supervisor Device Identifier Shelf Expiration Date Model / Serial / Lot Seamguard Endogia 60 Blk [id number] - [id number] Implanted:Qty : 2 on 05/10/2020 by Kacey Russo MD at [facility] N/A: Stomach [employer] 10/29/2022 [id number] / / [id number] Seamguard Endogia 60 Prpl [id number] - [id number] Implanted:Qty : 3 on 05/10/2020 by Kacey Russo MD at [facility] N/A: Abdomen [employer] 11/06/2022 [id number] / / [id number] Financial Compliance Officer Endoclip Iii 5mm W/Cliplogic [id number] - [id number] Implanted:Qty : 1 on 05/10/2020 by Kacey Russo MD at [facility] N/A: Abdomen [employer] - COVIDIEN [id number] / / Insurance BCBS FEDERAL RX [facility] [employer] PLANS (INTERNAL) [facility] Internal Plans [employer] [address] [place] [address] Advance Directives For more information, please contact: [phone] * Full Code (Latest Code Status on File) Date Activated Date Inactivated Comments 05/10/2020 5:09 PM 05/11/2020 9:25 PM * Full Code Date Activated Date Inactivated Comments 05/10/2020 2:22 PM 05/10/2020 5:09 PM * Full Code Date Activated Date Inactivated Comments 10/20/2019 9:21 AM 10/20/2019 6:27 PM Care Teams Retort Condenser Attendant Relationship Specialty Start Date End Date Aicha Cuello MD [address] [place] [id number] PCP - General Family Practice 09/12/19
--- OUTSIDE RECORDS SUMMARY | 2025-05-22 14:07 | XMS_ITS | Encounter Summary ---
Author Organization [facility] Address [address] [place] [address] Care Team Providers Care Community Marketing Manager Name Role Phone Unavailable Primary Care Provider Unavailabl e Prior Encounters Date Type Department Care Team Description 10/06/2019 Converted 13x Documents [id number] [place] [address] <No scans attached> Plan of Treatment Not on file Visit Diagnoses Not on file
== END 2025-05-22 13:41 | disposition home or self-care (01) ==
PROVIDERS: Visit Provider Urology
DX: N20.2 Calculus of kidney with calculus of ureter (principal)
CPT/HCPCS: 74018; 74176

== ENCOUNTER 2025-06-22 12:35 | Outpatient (CLI) | payer BC, SELFPAY ==
--- OUTSIDE RECORDS SUMMARY | 2018-10-11 01:00 | XMS_ITS | Encounter Summary ---
Author Organization [facility] Address [address] [place] [address] Care Team Providers Care Field Enumerator Name Role Phone Sari Cali MD Primary Care Provider Maryam Hilario MD Unavailable [phone] Reason for Visit * Diagnostic Imaging (Routine) - Closed Specialty Diagnoses / Procedures Referred By Renee pablo Referred To Contact Procedures Breast Imaging Screening Outside Reference Referral, Self Referral ID Status Reason Start Date Expiration Date Visits Re quested Visits Authorized [id number] Closed 01/12/2022 02/11/2023 1 1 Encounter Details Date Type Department Care Team (Late st Contact Info) Description 10/11/2018 Hospital Encounter [facility] [place] [address] Social History Tobacco Use Types Packs/Day Years [...] on file Legal Sex Female 10:50 PM FUSE ASSEMBLER Gender Identity Female 10/15/2018 11:21 AM FUSE ASSEMBLER Sexual Orientation Not on file 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 There will be no report generated by a [facility] Radiologist. Narrative RAD_MAMMO_BJH - 01/12/2022 [...] documented as of this encounter Care Teams Field Enumerator Relationship Specialty Start Date End Date Sari Cali MD [address] [facility] [address] [place] [address] PCP - General 01/15/17 10/14/18 Maryam Muller MD [address] [place] [address] Internal Medicine 02/14/17 10/14/18 documented as of this encounter
--- OUTSIDE RECORDS SUMMARY | 2020-12-15 | XMS_ITS | Encounter Summary ---
Author Organization [facility] Address [address] [place] [address] Care Team Providers Care Warehouse Packer Name Role Phone Aicha Cuello MD Primary Care Provider Reason for Visit * Diagnostic Imaging (Routine) - Closed Specialty Diagnoses / Procedures Referred By Erisac t Referred To Contact Diagnoses Lung nodule Procedures Breast Imaging Screening Outside Reference Referral, Self Referral ID Status Reason Start Date Expiration Date Visits Re quested Visits Authorized [id number] Closed 01/12/2022 02/11/2023 1 1 Encounter Details Date Type Department Care Team (Late st Contact Info) Description 12/15/2020 Hospital Encounter [facility]iology [facility] [address] [place] [address] Social History Tobacco Use Types Packs/Day Years [...] on file 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 There will be no report generated by a [facility] Radiologist. Narrative RAD_MAMMO_BJH - 01/12/2022 10:01 [...] documented as of this encounter Care Teams Warehouse Packer Relationship Specialty Start Date End Date Aicha Cuello MD [facility] DEPT [place] [address] PCP - General Family Practice 10/15/18 documented as of this encounter
--- OUTSIDE RECORDS SUMMARY | 2025-03-24 12:30 | XMS_ITS ---
Author Organization [facility] [place] ([address]) Address [address] [place] [address] Care Team Providers Care Oral Surgery Physician Name Role Phone Aicha Cuello Primary Care Provider Zackery Manning Unavailable [phone] Rashid Palafox Unavailable [phone] REASON FOR VISIT SCIT - Traditional Schedule Allergy Immunotherapy Encounters Encounter Location Date Provider Diagnosis [facility] - [place] [address] [place] [address] 03/24/2025 Rashid Palafox Allergic rhinitis due to pollen J30.1 ; Other allergic rhinitis J30.89 ; Allergic rhinitis due to animal (cat) (dog) hair and dander J30.81 and Other chronic allergic conjunctivitis H10.45 Assessments Encounter Date Diagnosis (ICD Code) Assessment Notes Treatment Notes Treatment Clinical Notes Section Notes 03/24/2025 Allergic rhinitis due to pollen (ICD-10 - J30.1) 03/24/2025 Other allergic rhinitis (ICD-10 - J30.89) 03/24/2025 Allergic rhinitis due to animal (cat) (dog) hair and dander (ICD-10 - J30.81) 03/24/2025 Other chronic allergic conjunctivitis (ICD-10 - H10.45) Plan Of Treatment Next Appt Details Follow Up: 1 Week, Reason: Provider Name:Rashid Palafox , 06/23/2025 03:40:00 PM, [address] [place], [address], Progress Notes * Shant DAVISraDOB:1970 (55 yo F)Acc No.[id number]:03/24/2025 SCIT-Aeroallergen Patient: Armida JONES Provider: Nayeli Palafox MD :1970 A ge:54 Y S ex:Female Date:03/24/2025 Address:[address] [place], [place] [address] Pcp:Aicha Cuello Subjective: * Chief Complaints: * [...] Information: * Visit Code: * Procedure Codes: 81977 IMMUNOTHERAPY INJECTIONS. * Electronic signature of Cassidy Palafox MD, FAAAAI on 06/22/2025 at 01:31 PM CDT Sign off status: Pending * Provider: Nayeli Palafox MD Date: 0 03/24/2025 Generated for Magi Varma/eTransmitting on: 1 01:31 PM CDT History and Physical Notes * [...]
--- OUTSIDE RECORDS SUMMARY | 2025-06-22 13:31 | XMS_ITS | Encounter Summary ---
Author Organization [employer] Address [address] [place] [address] Care Team Providers Care Client Consultant Name Role Phone Aicha Cuello MD Primary Care Provider Encounter Details Date Type Department Care Team (Late st Contact Info) Description 12/08/1998 Outpatient Historical HIS 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
--- OUTSIDE RECORDS SUMMARY | 2025-06-22 13:31 | XMS_ITS | Encounter Summary ---
Author Organization [employer] Address 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
--- OUTSIDE RECORDS SUMMARY | 2025-06-22 13:31 | XMS_ITS | Encounter Summary ---
Author Organization [employer] Address [address] [place] [address] Care Team Providers Care Lipcoat Sprayer Name Role Phone Aicha Cuello MD Primary Care Provider Encounter Details Date Type Department Care Team (Late st Contact Info) Description 05/13/1999 Outpatient Historical HIS 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
--- OUTSIDE RECORDS SUMMARY | 2025-06-22 13:31 | XMS_ITS | Encounter Summary ---
Author Organization [employer] Address 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
--- OUTSIDE RECORDS SUMMARY | 2025-06-22 13:31 | XMS_ITS | Encounter Summary ---
Author Organization [employer] Address [address] [place] [address] Care Team Providers Care Competitive Athlete Name Role Phone Aicha Cuello MD Primary Care Provider Encounter Details Date Type Department Care Team (Late st Contact Info) Description 06/29/1998 Outpatient Historical HIS 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
--- OUTSIDE RECORDS SUMMARY | 2025-06-22 13:32 | XMS_ITS | Encounter Summary ---
Author Organization [facility] Address [address] [place] [address] Care Team Providers Care Blending Kettle Tender Name Role Phone Unavailable Primary Care Provider Unavailabl e Prior Encounters Date Type Department Care Team Description 10/06/2019 Converted 13x Documents [place] [id number] [place] [address] <No scans attached> Plan of Treatment Not on file Visit Diagnoses Not on file
--- OUTSIDE RECORDS SUMMARY | 2025-06-22 13:32 | XMS_ITS | Clinical Summary ---
Author Organization [facility] Address [address] [place] [address] Care Team Providers Care Head Operator Name Role Phone Aicha Cuello MD Primary Care Provider Mariola Suarez Unavailable [phone] Jm Boyle MD Unavailable [phone] Vincent Byrd MD Unavailable [phone] Allergies Active Allergy Reactions Criticality Noted Date [...] decreased libido 30 g 1 025 Active Active Problems Patient Care Coordination [...] (11/22/2022): Added automatically from request for surgery [id number] Allergic rhinitis due to animal hair and [...] Type Department Care Team Description 05/20/2025 Telephone [facility] Medicine Endocrinology Metabolism and Lipid [address], [address] [place] [address] Marisa Sandhu, ANTOINETTE Prior Auth; ozempic from Last 3 Months Immunizations Immunization Administration [...] on file Legal Sex Female 10:50 PM PRESSURE TEST OPERATOR Gender Identity Female 10/15/2018 11:21 AM PRESSURE TEST OPERATOR Sexual Orientation Not on file Occupation [...] 37 C (98.6 F) 10/28/2024 10:45 AM PRESSURE TEST OPERATOR Respiratory Rate 18 10/28/2024 10:45 AM PRESSURE TEST OPERATOR Oxygen Saturation 100% 05/01/2024 12:10 PM [...] 03/2020, 04/02/2020, Additional history exists Covid-19 Vaccine (4 - 2024-2 6 season) 2025 08/04/2021, 01/25/2021, [...] HEPATITIS C ANTIBODY Routine 11/25/2021 2:33 PM PRESSURE TEST OPERATOR Screening for STD (sexually transmitted disease) THINPREP TIS PAP AND HR HPV DNA REFLEX GENOTYPES 16,18 Routine 11/18/2021 4:58 PM PRESSURE TEST OPERATOR from Last 3 Months or Most Recently Relevant to Health Maintenance Results * Testosterone, Total, LC/MS (04/15/2025 3:54 PM CDT) Testosterone 8 2 - 45 ng/dL [employer] Comment: For additional information, please refer to https://education.SeeJay.[employer]muMetrix/faq/TotalTestosteroneLCMSMS (This link is being provided for informational/educational purposes only.) (Note) This test was developed and its analytical performance characteristics have been determined by [employer]. It has not been cleared or approved by the FDA. This assay has been validated pursuant to the CLIA regulations and is used for clinical purposes. [facility] [address] [place] [address] [facility] [address] Chelsey Díaz MD, PhD Blood 04/15/2025 3:54 PM CDT 04/15/2025 3:55 PM CDT us Isaura Olivares MD LAB BLOOD ORDERABLES Fi nal Result [facility] [address] [facility] [place] [address], [address] [place] [address] * eGFR (04/17/2024 11:34 AM CDT) eGFR [...] MD LAB BLOOD ORDERABLES Fi nal Result [facility] [address] [facility] Department [place] [address] * (ABNORMAL) POCT hemoglobin A1c (04/17/2024 11:09 AM CDT) Hgb A1C, POC 6.0(H) 4.0 - 5.6 % Est Average Gluc POC 126 mg/dL [facility] Comment: The ADA recommends reporting an estimated Average Glucose (eAG) with all Hemoglobin A1c results using the equation derived from a study of 507 normal and diabetic adults. Minority populations were underrepresented and children were not included. (Diabetes Care 31:7998-8242, 2008). The eAG is not equivalent to a fasting glucose. Blood 04/17/2024 11:0 9 AM CDT 04/17/2024 11:09 AM CDT us Isaura Olivares MD POINT OF CARE TEST ROGER MCCLENDON Final Result [facility] [address] [facility] Department [place] [address] * Albumin Creatinine Ratio, Urine (03/28/2023 3:11 [...] ORDERABLES Zora l Result Performing Organization Address [facility] Co de Phone Number [facility] [address] [place] [address] * Lipid panel (05/12/2022) Blood specimen (specimen) [...] studies performed at [facility] on 10/29/2015, and at [place], [place] on 10/11/2018 and 12/15/2020. There are [...] studies performed at [facility] on 10/29/2015,and at [facility]. [place], [place] on 10/11/2018 and 12/15/2020. There are scattered areas of fibroglandular density. There is no suspicious abnormality in either breast. Impression: There is no mammographic evidence of malignancy. Annual screening mammography is recommended. OVERALL FINAL ASSESSMENT: BI-RADS CATEGORY 1: Negative. Linn Gómez NP IM MAMMO PROCEDURES Final Result * Hepatitis C antibody (11/25/2021 2:33 PM PRESSURE TEST OPERATOR) Hep C Ab NON-REACTI VE NON-REACT DANELLE [facility] SIGNAL TO CUT-OFF 0.04 <1.00 [facility] Comment: HCV antibody was non-reactive. There is no laboratory evidence of HCV infection. In most cases, no further action is required. However, if recent HCV exposure is suspected, a test for HCV RNA (test code 37240) is suggested. For additional information please refer to http://education.[employer]/faq/VJQ60j4 (This link is being provided for informational/ educational purposes only.) Blood specimen (specimen) 11/25/2021 2:33 PM PRESSURE TEST OPERATOR 11/25/2021 2:34 PM PRESSURE TEST OPERATOR Linn Gómez NP LAB MICROBIOLOGY - G ENERAL ORDERABLES Final Result [facility] [address] [address] [facility] [place] [address] * THINPREP TIS PAP AND HR HPV DNA REFLEX GENOTYPES 16,18 (11/18/2021 4:58 PM PRESSURE TEST OPERATOR) CLINICAL INFORMATION: SCREENING PERIMENOPAUSAL [facility] LMP 11/02/2021 [facility] Previous Pap INFORMATION NOT PROVIDED [facility] Prev. Bx INFORMATION NOT PROVIDED [facility] SOURCE: Cervix, Endocervix [facility] Pap, specimen adequacy Satisfactory for evaluation. Endocervical/mckee sformation zone component present. [facility] HPV interp Negative for intraepithelial lesion or malignancy. [facility] COMMENTS This Pap test has been evaluated with computer assisted technology. [facility] Early Childhood Director MMW, CT(ASCP) CT screening location: [place] [address] Comment [facility] Comment: EXPLANATORY NOTE: The Pap [...] E6/E7 Not Detected NOT DETECTED [facility] Comment: Not Detected High Risk HPV types (16,18,31,33,35,39,45,51,52, 56,58,59,66,68) were not detected. Other HPV types which cause anogenital lesions may be present. The significance of the other types of HPV in malignant processes has not been established. Methodology: Real Time PCR 11/18/2021 4:58 PM PRESSURE TEST OPERATOR 11/21/2021 5:31 AM PRESSURE TEST OPERATOR Linn Gómez NP LAB CYTOLOGY ORDERAB LES Final Result [facility] [facility] [facility] [address] [place] [id number] [facility] [address] [place] [address] from Last 3 Months or Most Recently Relevant to Health Maintenance Insurance [facility] [employer]ERAL Care Teams Head Operator Relationship Specialty Start Date End Date Aicha Cuello MD [address] [place] [address] PCP - General Family Practice 10/15/18 Mariola Suarez PA [address] [place] [address] Physician Shift Engineer Dermatology 04/22/21 Jm Boyle MD [address] [place] [address] Manager Biologics Dermatology 04/22/21 Vincent Byrd MD [address] [place] [address] Consulting Physician Plastic Surgery 12/05/22
--- OUTSIDE RECORDS SUMMARY | 2025-06-22 13:32 | XMS_ITS | Patient Health Record ---
Author Organization [facility] [employer] [place] ([address]) Address [address] [place] [address] Care Team Providers Care Recording Clerk Name Role Phone Aicha Cuello Primary Care Provider UnavailZackery Lakhani Unavailable [phone] Rashid Palafox Unavailable [phone] Anita Vela Unavailable [phone] Allergies No Known Allergies Reason For Referral No Information Medications Medication SIG (Take, Route, Frequency, Duration) Notes Start Date End Date Status Auvi-Q 0.3 MG/0.3ML as directed intramuscularly once; Duration: 30 days Active Rosuvastatin Calcium 10 MG 1 tab(s) orally once a day; Duration: 30 day(s) 10/12/2021 Active AUVI -Q 0.3 mg as directed intramuscularly once; Duration: 30 days Active Ezetimibe 10 MG 1 tab(s) orally once a day; Duration: 30 day(s) 10/12/2021 Active MONTELUKAST 10 mg 1 tab(s) orally once a day; Duration: 30 day(s) Active Pioglitazone HCl 15 MG 1 tab(s) orally o nce a day; Duration: 30 day(s) 10/12/2021 Not-Mario ing FLUTICASONE NASAL 50 mcg/inh 2 spray(s) in each nostril BID; Duration: 30 day(s) Active Montelukast Sodium 10 MG 1 tab(s) orally once a day; Duration: 30 day(s) Active FEXOFENADINE 180 mg 1 tab(s) orally Ramona y; Duration: 30 day(s) Active Fexofenadine HCl 180 MG 1 tab(s) orally Daily; Duration: 30 day(s) Active Sertraline HCl 50 MG 1 tab(s) orally onc e a day; Duration: 30 day(s) 10/12/2021 Not-Mario ing Ozempic (1 MG/DOSE) 4 MG/3ML as directed Subcutaneous Act mary lou Famotidine 40 MG 1 tab(s) orally 30 m ins prior to SCIT; Duration: 90 days Not-Taking Wellbutrin XL 300 MG 1 tablet in the mor sahara Orally Once a day Active Montelukast Sodium 10 MG 1 tab(s) orally once a day; Duration: 30 day(s) Not-Mario ing Gabapentin 300 MG ; Duration: 30 Not-Taking Famotidine 40 mg 1 tab(s) orally 30 m ins prior to SCIT; Duration: 30 days Active FLUoxetine HCl 40 MG 1 cap(s) orally onc e a day; Duration: 30 day(s) 10/12/2021 Not-Mario ing Fluticasone Propionate 50 MCG/ACT 2 spray(s) in each nostril BID; Duration: 30 day(s) Not-Taking SIT (TRADITIONAL) variable per schedule SC per schedule; Duration: to be determined Active NASAL WASHES N/A as directed intranas ally as needed; Duration: 30 Active FAMOTIDINE 40 mg 1 tab(s) orally 30 m ins prior to SCIT; Duration: 30 days Active Immunizations Vaccine Route Administration Date Status [...] Problem Type II diabetes mellitus without complication (151006310) Type 2 diabetes mellitus without complications (E11.9) Active confirmed Problem Chronic allergic conjunctivitis (99813717) Other chronic allergic conjunctivitis (H10.45) Active confirmed Problem Allergic rhinitis caused by pollen (disorder) (69112150) Allergic rhinitis due to pollen (J30.1) Active confirmed Problem Allergic rhinitis (28064554) Other allergic rhinitis (J30.89) Active confirmed Problem Allergic rhinitis caused by animal hair and dander (592811120491478) Allergic rhinitis due to animal (cat) (dog) hair and dander (J30.81) Active confirmed Problem Eruption of skin (713337528) Rash and other nonspecific skin eruption (R21) Active confirmed Problem Elevated blood pressure reading without diagnosis of hypertension (637817251) Elevated blood-pressure reading, without diagnosis of hypertension (R03.0) Active confirmed Problem Pure hypercholesterolemia (995848904) Pure hypercholesterol emia, unspecified (E78.00) Active confirmed Vital Signs Oximetry 99 % 03/25/2025 Blood pressure diastolic 81 mm Hg 03/25/2025 Height 64 in 03/25/2025 Blood pressure systolic 132 mm Hg 03/25/2025 Weight 184.4 lbs 03/25/2025 BMI 31.65 kg/m2 03/25/2025 Encounters Encounter Location Date Provider Diagnosis [address] [place] [address] 05/26/2025 Rashid Palafox Allergic rhinitis du e to pollen J30.1 ; Other allergic rhinitis J30.89 ; Allergic rhinitis due to animal (cat) (dog) hair and dander J30.81 and Other chronic allergic conjunctivitis H10.[address] [address] 04/22/2025 Rashid Palafox Allergic rhinitis du e to pollen J30.1 ; Other allergic rhinitis J30.89 ; Allergic rhinitis due to animal (cat) (dog) hair and dander J30.81 and Other chronic allergic conjunctivitis H10.45 [facility] [address] [place] [address] 02/24/2025 Rashid Palafox Allergic rhinitis du e to pollen J30.1 ; Other allergic rhinitis J30.89 ; Allergic rhinitis due to animal (cat) (dog) hair and dander J30.81 and Other chronic allergic conjunctivitis H10.[address] [place] [address] 01/27/2025 Rashid Palafox Allergic rhinitis du e to pollen J30.1 ; Other allergic rhinitis J30.89 ; Allergic rhinitis due to animal (cat) (dog) hair and dander J30.81 and Other chronic allergic conjunctivitis H10.45 [facility] [place] [address] [facility] [place] [address] 12/30/2024 Rashid Palafox Allergic rhinitis du e to pollen J30.1 ; Other allergic rhinitis J30.89 ; Allergic rhinitis due to animal (cat) (dog) hair and dander J30.81 and Other chronic allergic conjunctivitis H10.45 [facility] [place] [address] [facility] [place] [address] 11/26/2024 Rashid Palafox Allergic rhinitis du e to pollen J30.1 ; Other allergic rhinitis J30.89 ; Allergic rhinitis due to animal (cat) (dog) hair and dander J30.81 and Other chronic allergic conjunctivitis H10.45 [facility] [place] [address] [facility] [place] [address] 10/29/2024 Rashid Palafox Allergic rhinitis du e to pollen J30.1 ; Other allergic rhinitis J30.89 ; Allergic rhinitis due to animal (cat) (dog) hair and dander J30.81 and Other chronic allergic conjunctivitis H10.45 [facility] [place] [address] [facility] [place] [address] 10/22/2024 Rashid Palafox Allergic rhinitis du e to pollen J30.1 ; Other allergic rhinitis J30.89 ; Allergic rhinitis due to animal (cat) (dog) hair and dander J30.81 and Other chronic allergic conjunctivitis H10.45 [facility] [address] [facility] [place] [address] 10/01/2024 Rashid Palafox Allergic rhinitis du e to pollen J30.1 ; Other allergic rhinitis J30.89 ; Allergic rhinitis due to animal (cat) (dog) hair and dander J30.81 and Other chronic allergic conjunctivitis H10.45 [facility] [place] [address] [facility] [place] [address] 08/18/2024 Rashid Palafox Allergic rhinitis du e to pollen J30.1 ; Other allergic rhinitis J30.89 ; Allergic rhinitis due to animal (cat) (dog) hair and dander J30.81 and Other chronic allergic conjunctivitis H10.45 [facility] [address] [place] [address] 03/25/2025 Anita Fudiogo Allergic rhinitis du e to pollen J30.1 ; Allergic rhinitis due to animal (cat) (dog) hair and dander J30.81 ; Other allergic rhinitis J30.89 ; Other chronic allergic conjunctivitis H10.45 ; Rash and other nonspecific skin eruption R21 and Elevated blood-pressure reading, without diagnosis of hypertension R03.0 [facility] [address] [place] [address] 10/15/2024 Zcakery Ho Allergic rhinitis du e to pollen [...] rhinitis due to pollen (ICD-10 - J30.1) 05/26/2025 Allergic rhinitis due to pollen (ICD-10 - J30.1) 05/26/2025 Other allergic rhinitis (ICD-10 - J30.89) 04/22/2025 Other allergic rhinitis (ICD-10 - J30.89) 03/25/2025 [...] and continue SCIT as an adjunctive measure 04/22/2025 Allergic rhinitis due to animal (cat) (dog) hair and dander (ICD-10 - J30.81) 05/26/2025 Allergic rhinitis due to animal (cat) (dog) hair and dander (ICD-10 - J30.81) 05/26/2025 Other chronic allergic conjunctivitis (ICD-10 - H10.45) 10/22/2024 Other chronic allergic conjunctivitis (ICD-10 - H10.45) 04/22/2025 Other chronic allergic conjunctivitis (ICD-10 - H10.45) 03/25/2025 Rash and other nonspecific skin eruption (ICD-10 - R21) Noted history of atopic dermatitis, generally to the arms and neck. Will typically treat with topical steroids per PCP. Last occurred 3 years ago. Continue to monitor 02/24/2025 Other chronic allergic conjunctivitis (ICD-10 - [...] Next Appt Details Provider Name:Rashid Palafox , 06/23/2025 03:40:00 PM, [address] [place], [address], Insurance Providers Payer Name Payer Address Payer Phone Subscriber Number Group Number Insured Name Patient Relationship to Insured Coverage Start Date Coverage End Date [facility] [address] [place] [address] [id number] Armida Davis Self - patient is the [...]
--- OUTSIDE RECORDS SUMMARY | 2025-06-22 13:32 | XMS_ITS | Patient Health Record ---
Author Organization [facility] Address [address] [place], [place] [id number] Care Team Providers Care Senior Accounting Associate Name Role Phone DIA ORTEGA Unavailable [phone] Aicha Cuello Unavailable Unavailable Allergies No Known [...] Insured Coverage Start Date Coverage End Date [facility] ([facility]) ATTN CLAIMS [address] [place] [address] [id number] ELISABETH BRYAN Self - patient is the insured Medical (General) History Medical History History ICD Code kidney stones Sleep apnea Diabetic
--- OUTSIDE RECORDS SUMMARY | 2025-06-22 13:32 | XMS_ITS | Clinical Summary ---
Author Organization [facility] Address [address] [place] [address] Care Team Providers Care Manager Meeting Name Role Phone Unavailable Primary Care Provider [...]
--- OUTSIDE RECORDS SUMMARY | 2025-06-22 13:32 | XMS_ITS | Clinical Summary ---
Author Organization [facility] Address [address] [place] [address] Phone Care Team Providers Care Hospitalist Nocturnist Physician Name Role Phone Aicha Cuello MD Primary Care Provider Allergies Active Allergy Reactions Criticality Noted Date Comments Amoxicillin Diarrhea Medium 04/19/2020 Medications empagliflozin (Jardiance) 10 mg tablet Take 10 mg by mouth daily geodetic surveyor. Active atorvastatin (LIPITOR) 40 mg tablet Take [...] Encounters Date Type Department Care Team Description 06/03/2025 External Device Data [facility] ABSTRACTION Provider, Abstract 06/02/2025 External Device Data [facility]STRACTION Provider, Abstract [...] on file Legal Sex Female 4:21 AM LIVESTOCK PRODUCER Gender Identity Not on file Sexual Orientation [...] Screening 11/27/2028 Medical Devices Implanted Type Area Oil Field Technician Device Identifier Shelf Expiration Date Model / Serial / Lot Seamguard Endogia 60 Blk [id number] - [id number] Implanted:Qty : 2 on 05/10/2020 by Kacey Russo MD at [facility] N/A: Stomach [employer] 10/29/2022 [id number] / / [id number] Seamguard Endogia 60 Prpl [id number] - [id number] Implanted:Qty : 3 on 05/10/2020 by Kacey Russo MD at [facility] N/A: Abdomen [employer] 11/06/2022 [id number] / / [id number] Sewer Endoclip Iii 5mm W/Cliplogic [id number] - [id number] Implanted:Qty : 1 on 05/10/2020 by Kacey Russo MD at [facility] N/A: Abdomen [employer] - COVIDIEN [id number] / / Insurance BCBS FEDERAL RX [facility] [employer] PLANS (INTERNAL) [facility] Internal Plans [employer] [address] [place] [address] Advance Directives For more information, please contact: [phone] * Full Code (Latest Code Status on File) Date Activated Date Inactivated Comments 05/10/2020 5:09 PM 05/11/2020 9:25 PM * Full Code Date Activated Date Inactivated Comments 05/10/2020 2:22 PM 05/10/2020 5:09 PM * Full Code Date Activated Date Inactivated Comments 10/20/2019 9:21 AM 10/20/2019 6:27 PM Care Teams Hospitalist Nocturnist Physician Relationship Specialty Start Date End Date Aicha Cuello MD [address] [place] [id number] PCP - General Family Practice 09/12/19
[2025-06-22 13:49] LABS: INR 0.8; Prothrombin Time 11.5 Seconds (11.1-14.7)
[2025-06-22 13:50] LABS: Partial Thromboplastin Time 28.4 Seconds (22.3-36.8)
[2025-06-22 13:58] LABS: Anion Gap 5 mmol/L (4-12); Blood Urea Nitrogen 11 mg/dL (7-17); Calcium 9.2 mg/dL (8.4-10.2); Carbon Dioxide 29 mmol/L (22-30); Chloride 104 mmol/L (98-107); Estimated Glomerular Filt Rate > 60; Glucose 105 mg/dL (65-110); Potassium 3.4 mmol/L (3.4-5.0); Sodium 138 mmol/L (137-145)
== END 2025-06-22 12:36 | disposition home or self-care (01) ==
LOC: ANHSURGERY 12:39
PROVIDERS: Anesthesiology; Visit Provider Urology
DX: N20.0 Calculus of kidney (principal); E11.9 Type 2 diabetes mellitus without complications; Z01.818 Encounter for other preprocedural examination
CPT/HCPCS: 36415; 80048; 85610; 85730; 87086; 87186

== ENCOUNTER 2025-06-26 00:43 | Day surgery (SDC) | payer BC, SELFPAY ==
--- OUTSIDE RECORDS SUMMARY | 2018-10-11 01:00 | XMS_ITS | Encounter Summary ---
Author Organization [facility] Address [address] [place] [address] Care Team Providers Care Fuel Cell Engineer Name Role Phone Sari Cali MD Primary Care Provider Maryam Hilario MD Unavailable [phone] Reason for Visit * Diagnostic Imaging (Routine) - Closed Specialty Diagnoses / Procedures Referred By Renee pablo Referred To Contact Procedures Breast Imaging Screening Outside Reference Referral, Self Referral ID Status Reason Start Date Expiration Date Visits Re quested Visits Authorized [id number] Closed 01/12/2022 02/11/2023 1 1 Encounter Details Date Type Department Care Team (Late st Contact Info) Description 10/11/2018 Hospital Encounter [facility] [place] [address] Social History Tobacco Use Types Packs/Day Years [...] on file 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 There will be no report generated by a [facility] Radiologist. Narrative RAD_MAMMO_BJH - 01/12/2022 10:01 [...] documented as of this encounter Care Teams Fuel Cell Engineer Relationship Specialty Start Date End Date Sari Cali MD [address] [facility] [address] [place] [address] PCP - General 01/15/17 10/14/18 Maryam Muller MD [address] [place] [address] Internal Medicine 02/14/17 10/14/18 documented as of this encounter
--- OUTSIDE RECORDS SUMMARY | 2020-12-15 | XMS_ITS | Encounter Summary ---
Author Organization [facility] Address [address] [place] [address] Care Team Providers Care International Logistics Analyst Name Role Phone Aicha Cuello MD Primary Care Provider Reason for Visit * Diagnostic Imaging (Routine) - Closed Specialty Diagnoses / Procedures Referred By Erisac t Referred To Contact Diagnoses Lung nodule Procedures Breast Imaging Screening Outside Reference Referral, Self Referral ID Status Reason Start Date Expiration Date Visits Re quested Visits Authorized [id number] Closed 01/12/2022 02/11/2023 1 1 Encounter Details Date Type Department Care Team (Late st Contact Info) Description 12/15/2020 Hospital Encounter [facility]iology [facility] [address] [place] [address] Social History Tobacco Use Types Packs/Day Years [...] on file 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 There will be no report generated by a [facility] Radiologist. Narrative RAD_MAMMO_BJH - 01/12/2022 10:01 AM CDT EXAMINATION: Images For Reference Purposes Only us Self Referral IMG MAMMO PROCEDURES Final Resul t RAD_MAMMO_BJH documented in this encounter Visit Diagnoses Not on filedocumented in this encounter Additional Health Concerns Infection Onset Date Last Indicated Resolved Time MRSA Comment:Germ watcher auto flagging 07/24/2013 07/24/201305/04 5:00 AM CDT documented as of this encounter Care Teams International Logistics Analyst Relationship Specialty Start Date End Date Aicha Cuello MD [facility] [facility] [place] [address] PCP - General Family Practice 10/15/18 documented as of this encounter
[2025-06-18 15:04] VITALS: BMI 29.2
--- NOTE | 2025-06-18 15:15 | SUR.PREOP ---
[facility] has started construction of its new state of the art ER which will open Spring 2026. With this, we anticipate parking may be a challenge for some our surgical patients and families. Parking spaces are limited but are available for all Surgical, obstetrics, and ER patients sharing this lot. If you arrive and find you are having a hard time finding a parking space, please note that we understand the challenges, please drive around the hospital and park near Hospital Entrance 1. When you enter this entrance, you can ask a volunteer to direct or take you back to the surgical waiting area to check in. We appreciate everyone?s understanding of these expected challenges while we build for your future. Report to the Outpatient Waiting Room, entrance under the green pavilion located off [address], at time 6am on date 06/26/25. Planned Procedure Time: 730am.? Time changes happen often and if your time is changed the preop area will call you the afternoon before. - You and your visitor will be asked to self-screen and do not enter if you have any COVID symptoms. Please call surgeon if you need to reschedule. - A mask is optional within the hospital at this time. Patients may have clear liquids (water, carbonated beverages, clear teas, apple juice) until 3 hours prior to surgery with a maximum of 20 ounces. - No food from midnight until time of surgery and no smoking, or chewing tobacco (or any form of nicotine). No chewing gum, candy or mints. Take only the following medications with a SIP of water on the morning of surgery: Bupropion DO NOT STOP ANY OF YOUR OTHER PRESCRIPTION MEDICATIONS PRIOR TO SURGERY EXCEPT THE FOLLOWING Hold all vitamins and supplements for 3 days per anesthesiologist. Medications to discontinue per physician none. Date to take last dose__06/22/25. Please no make-up, nail kyrgyz, hairspray, perfume, deodorant, or body powder the day of surgery.? No jewelry (including any body piercings) or valuables the day of surgery, leave them at home.? Please take a shower or bath the night before, or the morning of, surgery with an antibacterial soap.? Wear comfortable, loose fitting clothing.? Children are encouraged to wear pajamas. - Jewelry must be removed prior to entering the operating room.? Rings and piercings that are not removed may be cut off. - The hospital will not accept responsibility for valuables.? - Please leave all valuables, including medications, at home the day of surgery. If you are going home after surgery, a licensed transfer driver must drive you home.? - NO public transportation without another adult if you receive anesthesia. - We recommend that an adult stay with you for 24 hours following discharge. - We also recommend that you do not drive, make important decision, drink alcoholic beverages, or take any drugs that were not prescribed by your health care provider for at least 24 hours after your discharge time. Follow any additional instructions given to you from your surgeon. Telephone instructions given to _Armida and asked if any additional questions and then verbalized understanding. Patient advised to call surgeon office or pre surgery nurse liaison [phone] if any additional questions.
--- NOTE | 2025-06-18 16:28 | SUR.PREOP ---
[facility] has started construction of its new state of the art ER which will open Spring 2026. With this, we anticipate parking may be a challenge for some our surgical patients and families. Parking spaces are limited but are available for all Surgical, obstetrics, and ER patients sharing this lot. If you arrive and find you are having a hard time finding a parking space, please note that we understand the challenges, please drive around the hospital and park near Hospital Entrance 1. When you enter this entrance, you can ask a volunteer to direct or take you back to the surgical waiting area to check in. We appreciate everyone?s understanding of these expected challenges while we build for your future. Report to the Outpatient Waiting Room, entrance under the green pavilion located off [address], at time 6am on date 06/26/25. Planned Procedure Time: 730am.? Time changes happen often and if your time is changed the preop area will call you the afternoon before. - You and your visitor will be asked to self-screen and do not enter if you have any COVID symptoms. Please call surgeon if you need to reschedule. - A mask is optional within the hospital at this time. Patients may have clear liquids (water, carbonated beverages, clear teas, apple juice) until 3 hours prior to surgery with a maximum of 20 ounces. - No food from midnight until time of surgery and no smoking, or chewing tobacco (or any form of nicotine). No chewing gum, candy or mints. Take only the following medications with a SIP of water on the morning of surgery: Bupropion DO NOT STOP ANY OF YOUR OTHER PRESCRIPTION MEDICATIONS PRIOR TO SURGERY EXCEPT THE FOLLOWING Hold all vitamins and supplements for 3 days per anesthesiologist. Medications to discontinue per physician none. Date to take last dose__06/22/25. Please no make-up, nail ivorian, hairspray, perfume, deodorant, or body powder the day of surgery.? No jewelry (including any body piercings) or valuables the day of surgery, leave them at home.? Please take a shower or bath the night before, or the morning of, surgery with an antibacterial soap.? Wear comfortable, loose fitting clothing.? Children are encouraged to wear pajamas. - Jewelry must be removed prior to entering the operating room.? Rings and piercings that are not removed may be cut off. - The hospital will not accept responsibility for valuables.? - Please leave all valuables, including medications, at home the day of surgery. If you are going home after surgery, a licensed security patrol driver must drive you home.? - NO public transportation without another adult if you receive anesthesia. - We recommend that an adult stay with you for 24 hours following discharge. - We also recommend that you do not drive, make important decision, drink alcoholic beverages, or take any drugs that were not prescribed by your health care provider for at least 24 hours after your discharge time. Follow any additional instructions given to you from your surgeon. Telephone instructions given to _Armida and asked if any additional questions and then verbalized understanding.
--- NOTE | 2025-06-18 16:28 | PM.HPGS ---
History of Present Illness History of Present Illness Consent: Risks, benefits, and alternatives have been discussed and questions answered. Patient agrees to proceed with procedure. Chief complaint: Right Ureteral Kidney stone Narrative: Armida Davis is a 55 year old female Addendum Note?(Valente Zuleta MD; 05/20/2025 1:03 PM) KENN - describes a 1 cm stone now in the ureter with some hydro. ?Need formal renal ct/kub Addendum Note?(Valente Zuleta MD; 05/27/2025 1:45 PM) Armida's kenn revealed a 1 cm stone again now in the proximal right ureter. ?She is asymptomatic. ?Have given the option of trying eswl again on this new stone vs ureteroscopy with laser. ?She would like to try eswl. ?She is aware it will be one of my partners who will be taking over her care. Review of Systems Review of Systems: All systems reviewed & are unremarkable except as noted in HPI and below PMFSH Past Medical History Medical History (Updated 03/27/25 @ 11:15 by Valente Zuleta MD) Diabetes LISA (obstructive sleep apnea) Obesity Social History Social History Smoking status: Never smoker Alcohol intake: current Drinks per week: 1 Substance use: never Substance use type: does not use Living arrangements: with family Spiritual care concerns: No Meds Home Medications and Allergies Home Medications ?Medication ?Instructions ?Recorded ?Confirmed ?Type bupropion HCl 300 mg 24 hr tablet, 300 mg PO DAILY 03/03/25 06/18/25 History extended release ezetimibe 10 mg tablet 10 mg PO HS 03/03/25 06/18/25 History multivitamin (Daily Multi-Vitamin 1 tablet PO DAILY 03/03/25 06/18/25 History tablet) rosuvastatin 10 mg tablet 10 mg PO HS 03/03/25 06/18/25 History semaglutide 2 mg/dose (8 mg/3 mL) 2 mg subcut WEEKLY 03/03/25 06/18/25 History subcutaneous pen injector (Ozempic) oxybutynin chloride 5 mg tablet 5 mg PO BID PRN bladder spasms #30 03/27/25 06/18/25 Rx tabs Allergies Allergy/AdvReac Type Severity Reaction Status Date / Time No Known Allergies Allergy Verified 06/18/25 15:01 Exam Const: General: no acute distress Resp: Effort & Inspection: normal respiratory effort GI: Inspection: non-distended GI Palp: No abdominal tenderness and No Guarding due to palpation present (GI) Auscultation: normal bowel sounds Assessment and Plan Assessment and plan (1) Right renal stone: Code(s): N20.0 - Calculus of kidney Status: Acute Assessment and Plan: Right ESWL
[2025-06-26] VITALS (7 sets, daily range): BP systolic 121–137; BP diastolic 71–90; PULSE 65–76; RESP 10–18; TEMP 36.1–36.2; O2SAT 99–100; BMI 30.2
--- NOTE | ~2025-06-26 | XR_ITS ---
EXAMINATION: XR abdomen/kub 1V DATE: 06/26/2025 06:11 INDICATION: Right-sided urolithiasis. Lithotripsy evaluation. TECHNIQUE: A supine view of the abdomen on 2 radiographs was obtained. COMPARISON: None. FINDINGS: 15 x 5 mm elongated stone/cluster of stones projecting over the region of the right renal hilum. Couple unchanged phlebolith in the right hemipelvis. Left epigastric suture line and surgical clips along the greater curvature of the stomach. No dilated loops of gas-filled bowel to suggest obstruction. Lung bases are clear. Heart size is normal. IMPRESSION: 1. 15 x 5 mm stone/cluster of stones project over the right renal hilum. Reviewed, dictated and finalized at location A.
--- NOTE | ~2025-06-26 | CT_ITS ---
CT ABDOMEN AND PELVIS WITHOUT CONTRAST Clinical History: Right ureteral stone position Comparison: CT 05/22/2025 Technique: Unenhanced axial images lung bases to symphysis pubis Coronal, sagittal reformats CT images acquired with automatic exposure control for dose reduction DLP: 240 mGy-cm Findings: Without intravenous contrast, sensitivity for detecting visceral parenchymal abnormalities decreased. Lung bases: Clear. Visualized heart and pericardium: Unremarkable. Liver: Unremarkable. Gallbladder: Unremarkable. Spleen: Unremarkable. Pancreas: Unremarkable. Adrenal glands: Unremarkable. Kidneys: Right kidney- Hydronephrosis. 11 mm stone central collecting system. Several smaller intrarenal stones. No ureteral stone noted. Left kidney- No hydronephrosis. No renal stones. Distal esophagus/stomach: Gastric sleep. Small bowel loops: Normal caliber and wall thickness. Colon: Diverticula. Normal caliber and wall thickness. Normal RLQ appendix. Nodes: No enlarged nodes. Peritoneum: No ascites. No free intraperitoneal air. Urinary bladder: Unremarkable. Uterus: Unremarkable. Adnexa: No masses. Bones: No acute bony abnormality. Soft tissues: Small nodule right breast 6:00. Unopacified abdominal aorta: No aneurysmal dilatation. IMPRESSION: 1. 11 mm stone central collecting system likely prior ureteral stone refluxed back into kidney. 2. Right kidney hydronephrosis persists. 3. Additional smaller stones right kidney as before. Reviewed, dictated and finalized at location R.
--- OUTSIDE RECORDS SUMMARY | 2025-06-26 00:47 | XMS_ITS | Encounter Summary ---
Author Organization [facility] Address [address] [place] [address] Care Team Providers Care Inventory Manager Name Role Phone Aicha Cuello MD Primary Care Provider [phone] Encounter Details Date Type Department Care Team (Late Contact Info) Description 07/25/2024 MyChart Message Enc [address] [address] Aicha Cuello MD [address] [place] [address] Back pain Social History Tobacco Use Types Packs/Day Years Used Date Smoking Tobacco: Never Smokeless Tobacco: Never Alcohol Use Standard Drinks/Week Comments Not Currently 0 (1 standard drink = 0.6 oz pur e alcohol) PHQ-2 Answer Date Recorded Patient Health Questionnaire-2 Score 0 06/30/2024 Comments No Sex and Gender Information Value Date Recorded Sex Assigned at Female 10/10/2024 3:28 PM GRIT REMOVAL OPERATOR Legal Sex Female 8:27 PM CDT Gender Identity Female 11/06/2024 2:42 PM GRIT REMOVAL OPERATOR Sexual Orientation Not on file documented as of this encounter Plan of Treatment Upcoming Encounters Date Type Department Care Team (Late Contact Info) Description 07/29/2025 2:40 PM GRIT REMOVAL OPERATOR Office Visit [address] [address] Aicha Cuello MD [address] [place] [address] documented as of this encounter Visit Diagnoses Not on filedocumented in this encounter Additional Health Concerns Infection Onset Date Last Indicated Resolved Time COVID-19 Rule Out 05/05/2025 05/05/2025 05/05/2025 9:48 PM CDT Assessment Noted Time PHQ-9 Depression Total Score: 1 05/14/20 24 9:45 AM CDT documented as of this encounter Care Teams Inventory Manager Relationship Specialty Start Date End Date Aicha Cuello MD [address] [place] [address] PCP - General FAMILY PRACTICE 08/21/18 documented as of this encounter
--- OUTSIDE RECORDS SUMMARY | 2025-06-26 00:47 | XMS_ITS | Encounter Summary ---
Author Organization [facility] Address [address] [place] [address] Care Team Providers Care Encoding Clerk Name Role Phone Aicha Cuello MD Primary Care Provider [phone] Encounter Details Date Type Department Care Team (Late st Contact Info) Description 10/18/2024 MyChart Message Enc [address] [address] Aicha Cuello MD [address] [place] [address] New medication Social History Tobacco Use Types Packs/Day Years Used Date Smoking Tobacco: Never Smokeless Tobacco: Never Alcohol Use Standard Drinks/Week Comments Not Currently 0 (1 standard drink = 0.6 oz pur e alcohol) PHQ-2 Answer Date Recorded Patient Health Questionnaire-2 Score 4 10/10/2024 Comments No Sex and Gender Information Value Date Recorded Sex Assigned at Female 10/10/2024 3:28 PM PECAN MALLOW DIPPER Legal Sex Female 8:27 PM CDT Gender Identity Female 11/06/2024 2:42 PM PECAN MALLOW DIPPER Sexual Orientation Not on file documented as of this encounter Plan of Treatment Upcoming Encounters Date Type Department Care Team (Late Contact Info) Description 07/29/2025 2:40 PM PECAN MALLOW DIPPER Office Visit [address] [address] Aicha Cuello MD [address] [place] [address] documented as of this encounter Visit Diagnoses Not on filedocumented in this encounter Additional Health Concerns Infection Onset Date Last Indicated Resolved Time COVID-19 Rule Out 05/05/2025 05/05/2025 05/05/2025 9:48 PM CDT Assessment Noted Time PHQ-9 Depression Total Score: 18 025 3:49 PM PECAN MALLOW DIPPER documented as of this encounter Care Teams Encoding Clerk Relationship Specialty Start Date End Date Aicha Cuello MD [address] [place] [address] PCP - General FAMILY PRACTICE 08/21/18 documented as of this encounter
--- OUTSIDE RECORDS SUMMARY | 2025-06-26 00:47 | XMS_ITS | Encounter Summary ---
Author Organization [facility] Address [address] [place] [address] Care Team Providers Care Commodity Director Name Role Phone Aicha Cuello MD Primary Care Provider [phone] Encounter Details Date Type Department Care Team (Late Contact Info) Description 11/09/2021 [facility] Medical Message Enc [address] [address] [facility] Provider appt Social History Tobacco Use [...] Sex Assigned at Female 10/10/2024 3:28 PM PLASTIC FIXTURE BUILDER Legal Sex Female 8:27 PM CDT Gender Identity Female 11/06/2024 2:42 PM PLASTIC FIXTURE BUILDER Sexual Orientation Not on file COVID-19 Exposure Response Date Recorded In the last 10 days, have yo u been in contact with someone who was confirmed or suspected to have Coronavirus/COVID-19? No / Unsure 11/07/2021 10:26 AM PLASTIC FIXTURE BUILDER documented as of this encounter Plan of Treatment Upcoming Encounters Date Type Department Care Team (Late Contact Info) Description 07/29/2025 2:40 PM PLASTIC FIXTURE BUILDER Office Visit [address] [address] Aicha Cuello MD [address] [place] [address] documented as of this encounter Visit Diagnoses Not on filedocumented in this encounter Additional Health Concerns Infection Onset Date Last Indicated Resolved Time COVID-19 Rule Out 05/05/2025 05/05/2025 05/05/2025 9:48 PM CDT Assessment Noted Time PHQ-9 Depression Total Score: 3 11/07/19 22 10:32 AM PLASTIC FIXTURE BUILDER documented as of this encounter Care Teams Commodity Director Relationship Specialty Start Date End Date Aicha Cuello MD [address] [place] [address] PCP - General FAMILY PRACTICE 08/21/18 documented as of this encounter
--- OUTSIDE RECORDS SUMMARY | 2025-06-26 00:47 | XMS_ITS | Clinical Summary ---
Author Organization [facility] Address [address] [place] [address] Care Team Providers Care Coater Associate Name Role Phone Aicha Call MD Primary Care Provider [phone] Allergies Active Allergy Reactions Criticality Noted Date [...] powder daily as needed. 05/01 24 Active OZEMPIC 2 mg/dose injection (PEN) Inject 2 mg into the skin once a week. 01/14/20 Active testosterone (ANDROGEL) 50 MG of testosterone/5 [...] as needed. 30 capsule 01/31/20 25 Active Additional Information Patient not taking.Reported on 05/06/2025 hydrOXYzine (ATARAX) 10 MG tabletIndications: Mild anxiety,Primary insomnia TAKE 1 TABLET(10 MG) BY MOUTH EVERY NIGHT NEEDED FOR ITCHING 30 tablet 2 03/21/20 25 Active naproxen (NAPROSYN) 500 MG tabletIndications: Chronic midline low back pain with bilateral sciatica TAKE 1 TABLET(500 MG) BY MOUTH TWICE DAILY WITH FOOD AND PLENTY OF WATER NEEDED 60 tablet 1 05/25/20 25 Active Active Problems Problem Noted Date Diagnosed Date Carpal tunnel syndrome 04/27/2025 Ulnar neuropathy of right upper extremity 2024 Low libido 10/09/2024 Vaginal atrophy 10/09/2024 Recurrent depression 06/30/2024 Dysthymic disorder 06/30/2024 Anxiety 06/30/2024 Carpal tunnel syndrome of right wrist 11/22/2022 Overview (04/19/2023): Added automatically from request for surgery [id number] Rash 09/27/2022 Pure hypercholesterolemia 09/27/2022 Elevated blood [...] Uncontrolled type 2 diabetes mellitus with hyperglycemia ([facility]) 05/10/2020 S/P laparoscopic sleeve gastrectomy 05/10/2020 Vitamin D deficiency 03/10/2020 Hypersomnia 11/14/2019 Familial hypercholesterolemia 07/16/2019 Fatigue due to sleep pattern disturbance 019 Vaginal itching 01/02/2018 Yeast infection of the vagina 01/02/2018 Elevated liver enzymes 12/04/2017 Vaginal discharge 11/28/2017 Encounter for long-term current use of medicatio n 08/15/2017 Muscle pain 08/15/2017 Type 2 diabetes mellitus ([facility]) 08/15 Hypothyroidism 02/07/2017 Menorrhagia 12/22/2016 Hot flashes due to menopause 02/24/2014 Uterine bleeding 02/24/2014 Obesity, diabetes, and hyper tension syndrome ([facility]) 01/31/2014 Overview (10/21/2018): Overview: Obesity Overview: Metabolic [...] Encounters Date Type Department Care Team Description 05/08/[address] [address] Aicha Call MD Fever 05/06/2025 11:40 AM CDT Telemedicine [address] [address] Aicha Call MD Fever (Went to ER last night, started yesterday body hanger, dizzy and weak, very cold; testing for COVID there, was negative, said virus ) 05/05/2025 8:09 PM CDT - 05/05/2025 10:41 PM CDT Emergency [facility] [place] [address] Nayely Robbins PA Fever Discharge Disposition: Home or Self Care (Routine Discharge) 05/05/2025 Travel 04/27/2025 2:40 PM CDT Office Visit [address] [address] Aicha Call MD Diabetes; Anxiety; Hyperlipidemia; Depression; Obesity 04/27/2025 Travel 03/27/2025 Scan HEALTH INFO SRVCS Scanned, [facility] Procedure (SCAN) from Last 3 Months Immunizations Immunization Administration Dates Next Due Adenovirus Vaccine 09/24/1990 Afluria 36 MONTHS+ (Prefille d Syringe IIV4) 07/28/2019 FLUCELVAX (ccIIV3, TRIVALENT, 0.5mL) 06/30/2024 Flulaval Quad (Prefilled Syringe) 06/23/2020 H1N1 Injectable 2009 Influenza 11/20/2009 Hepatitis A (Havrix [address]) 09/02/2004,2003 Hepatitis B (Generic: Adult) 10/04/2010,04/04/20 10,12/29/2009 Influenza (FluMist) 07/04/2010 Influenza (Generic) 09/17/2024, 9,06/23/2018,07/10,08/05/2016,07/31/2015,07/21/2013 ,06/29/2012,08/24/2011,08/21/2009,02/2008,08/24/2007,10/21/2006, 4,07/20/1993 Influenza Adult (Generic) 07/10/2023,,08/04/2021,06/23,07/28/2019,06/24/2018,07/24/2016 ,08/01/2014 MMR (MMRII) 07/31/2015,08/24/1992 MODERNA COVID-19 BIVALENT (1 2+), MRNA, LNP-S, PF 06/29/2022 MODERNA COVID-19 (12+) MRNA, LNP-S, PF, 100 MCG/ 0.5 ML DOSE 01/25/2021,12/28/2020 MODERNA COVID-19 (TERMINAL BLOCK ASSEMBLER MAIN ALON), MRNA, LNP-S, PF, 50 MCG/ 0.25 ML DOSE 08/04/2021 Measles/Rubella 09/24/1990 Meningococcal (Menomune) 03/01/1991 Plague Vaccine 2 Bu/Ml Im Inj 07/20/1993 Pneumococcal (Pneumovax 23) 01/14/2020 Pneumococcal (Prevnar 20) 07/13/2023 Polio Opv (Generic) 10/11/1990 Shingrix 11/23/2023,07/13/2023 Td (TDVAX) 10/12/2003,09/24/1990 Tdap (Adacel) 04/27/2025 Tdap (Generic) 12/29/2009 Typhoid (Typhim ) 08/24/1992 Varicella (Varivax) 07/19/2017,07/31/2015 Social History Tobacco Use Types Packs/Day Years Used Date Smoking Tobacco: Never Smokeless Tobacco: Never Tobacco Cessation:Counseling Given: Not Answered Alcohol Use Standard Drinks/Week Comments Not Currently 0 (1 standard drink = 0.6 oz pur e alcohol) PHQ-2 Answer Date Recorded Patient Health Questionnaire-2 Score 0 05/06/2025 Comments No Sex and Gender Information Value Date Recorded Sex Assigned at Female 10/10/2024 3:28 PM CONCRETE BUILDING ASSEMBLER Legal Sex Female 8:27 PM CDT Gender Identity Female 11/06/2024 2:42 PM CONCRETE BUILDING ASSEMBLER Sexual Orientation Not on file Last Filed Vital Signs Vital Sign Reading Time Taken Comments Blood Pressure 106/69 05/05/2025 10:29 PM CDT Pulse 92 05/05/2025 10:29 PM CDT Temperature 38.6 C (101.5 F) 05/05/2025 10:29 PM CDT Respiratory Rate 18 05/05/2025 10:29 PM CDT Oxygen Saturation 97% 05/05/2025 10:29 PM CDT Inhaled Oxygen Concentration - - Weight 80.3 kg (177 lb) 05/05/2025 8:01 PM CDT Height 162.6 cm (5' 4) 05/05/2025 8:01 PM CDT Body Mass Index 30.38 05/05/2025 8:01 PM CDT Plan of Treatment Upcoming Encounters Date Type Department Care Team (Late st Contact Info) Description 07/29/2025 2:40 PM CONCRETE BUILDING ASSEMBLER Office Visit [facility] Family [facility] [address] [place] [address] Aicha Call MD [address] [place] [address] Health Maintenance Due Date Last Done Comments Diabetes: Retinopathy Eye Exam 1990 Hepatitis C 1990 Annual Physical 09/19/2019 09/19/2018 Mammogram Screening 04/17/2025 04/17/2023, 01/09/2022, 01/09/2022, Additional history exists Influenza Adult (#1) 2025 09/17/2024, 06/30/2024, 07/10/2023, Additional history exists Kidney Health Evaluation 09/06/2025 09/06/2024 Lipid Panel 09/06/2025 09/06/2024, 1011/2022, 03/23/2023, Additional history exists Hemoglobin A1C 10/28/2025 04/27/2025, 05/0 04/2025, 08/29/2024, Additional history exists Colorectal Cancer Screening Colonoscopy (10 Years) 11/27/2028 11/27/2018 DTaP, Tdap and Td Vaccines (4 - Td or Tdap) 04/27/2035 04/27/2025, 12/29/2009, 10/12/2003, Additional history exists Meningococcal Vaccine Aged Out 03/01/1991 No heath rehana eligible based on patient's age to complete this topic Hepatitis B Vaccines Completed 10/04/2010, 04/04/2010, 12/29/2009 Pneumococcal Vaccine: 50+ Years Completed 07/13/2023, 01/14/2020 Zoster Vaccines Completed 11/23/2023, 07/13/2023 COVID-19 Vaccine Completed 06/30/2024, , 08/04/2021, Additional history exists PHQ-2 (Physician [place]) Completed 05/06/2025 Meningococcal B Vaccine Aged Out No l onger eligible based on patient's age to complete this topic RSV Immunizations Under 20 Months Aged Out No longer eligible based on patient's age to complete this topic Procedures Procedure Name Priority Date/Time Associated Diagnosis Comments CORONAVIRUS (COVID 19) STAT 05/05/2025 9:09 PM CDT HEMOGLOBIN, GLYCOSYLATED Routine 04/27/2025 Type 2 diabetes mellitus with hyperlipidemia ([facility]) COLLECT.CAPILLARY (FNGR,HEEL,EAR) Routine 04/27/2025 Type 2 diabetes mellitus with hyperlipidemia ([facility]/HCC) PROCEDURE GENERIC (SCAN ORDER) 03/27/2025 LIPID PANEL Routine 09/06/2024 7:28 AM CONCRETE BUILDING ASSEMBLER Hyperlipidemia, unspecified hyperlipidemia type Class 1 obesity [...] Recently Relevant to Health Maintenance Results * CORONAVIRUS (COVID 19) (05/05/2025 9:09 PM CDT) CORONAVIRUS SARS COV 2 RNA NEGATIVE NEGATIVE 05/05/2025 9:48 PM CDT [facility] Comment: NEGATIVE RESULTS DO NOT RULE OUT COVID 19 AND SHOULD NOT BE USED THE SOLE BASIS FOR TREATMENT OR PATIENT MANAGEMENT DECISIONS, INCLUDING INFECTION CONTROL DECISIONS. NEGATIVE RESULTS SHOULD BE CONSIDERED IN THE CONTEXT OF A PATIENT'S RECENT EXPOSURES, HISTORY AND THE PRESENCE OF CLINICAL SIGNS AND SYMPTOMS CONSISTENT WITH COVID 19. THE ID NOW COVID-19 2.0 TEST HAS BEEN AUTHORIZED BY THE FDA UNDER EAU FOR USE BY AUTHORIZED LABORATORIES. PERFORMED BY NUCLEIC ACID AMPLIFICATION FOR MOLECULAR QUALITATIVE DETECTION OF SARS-COV-2. SPECIMEN TYPE NASAL 05/05/2025 8:13 PM CDT [facility] NASAL STRUCTURE / Unknown 05/05/2025 9:09 PM CDT us Nayely GARCIA MICROBIOLOGY - GENERAL ORDERAB LES Final Result [facility] [address] [place] [address], [place] [phone] * A1C (BACK OFFICE) (04/27/2025) HGB A1C 5.7 % [facility] 04/27/2025 Aicha Call MD LABORATORY Final Result [facility] [address] [place] [address], * COLLECT.CAPILLARY (FNGR,HEEL,EAR) (04/27/2025) Aicha Call MD PROCEDURES-UNRESULTED Final Resu lt [facility] ORDERS * PROCEDURE GENERIC (SCAN ORDER) (03/27/2025) 03/27/2025 us [facility] Scanned SCANNING Final Resu lt * LIPID PANEL (09/06/2024 7:28 AM CONCRETE BUILDING ASSEMBLER) CHOLESTEROL 144 <200 mg/dL [facility] HDL 67 > OR = 50 mg/dL N[facility] TRIGLYCERIDES 85 <150 mg/dL Nub[facility] LDL (CALCULATED) 60 mg/dL (calc) [facility] Comment: Reference range: <100 Desirable range <100 mg/dL for primary prevention; <70 mg/dL for patients with CHD or diabetic patients with > or = 2 CHD risk factors. LDL-C is now calculated using the Mark-Solis calculation, which is a validated novel method providing better accuracy than the Friedewald equation in the estimation of LDL-C. Mark SS et al. SULEMA. 2013;310(19): 5971-2434 (http://education.FreeWheel/faq/BQX425) CHOL/HDL RATIO 2.1 <5.0 (calc) [facility] NON HDL CHOLESTEROL 77 <130 mg/dL (calc) [facility] Comment: For patients with diabetes plus 1 major ASCVD risk factor, treating to a non-HDL-C goal of <100 mg/dL (LDL-C of <70 mg/dL) is considered a therapeutic option. 09/06/2024 7:28 AM CONCRETE BUILDING ASSEMBLER 09/06/2024 7:30 AM CONCRETE BUILDING ASSEMBLER Narrative Nubisio Javon ACSEY ORDERS - 09/07/2024 7:42 AM CONCRETE BUILDING ASSEMBLER FASTING:YES FASTING: YES Resulting Agency Comment Performing Organization Information: Site ID: [id number] Name: Rufina Donis Address: [address] [address] Director: Chema Scott MD Aicha Call MD LABORATORY Final Result [facility] EARL [place] [address] [address], [place] * MG SCREENING W LISA EARL [...] Most Recently Relevant to Health Maintenance [place] [address] [place] [address] Care Teams Coater Associate Relationship Specialty Start Date End Date Aicha Call MD [address] [place] [address] PCP - General FAMILY PRACTICE 08/21/18
--- OUTSIDE RECORDS SUMMARY | 2025-06-26 00:47 | XMS_ITS | Encounter Summary ---
Author Organization [facility] Address [address] [place] [address] Care Team Providers Care Pulmonary Disease Specialist Name Role Phone Aicha Cuello MD Primary Care Provider [phone] Encounter Details Date Type Department Care Team (Late st Contact Info) Description 08/02/2021 Clinical [place] Message Enc [address] [address] Aicha Cuello MD [address] [place] [address] Medication Questions Social History Tobacco Use [...] Sex Assigned at Female 10/10/2024 3:28 PM REMOTE SENSING SCIENTIST Legal Sex Female 8:27 PM CDT Gender Identity Female 11/06/2024 2:42 PM REMOTE SENSING SCIENTIST Sexual Orientation Not on file documented as of this encounter Plan of Treatment Upcoming Encounters Date Type Department Care Team (Late Contact Info) Description 07/29/2025 2:40 PM REMOTE SENSING SCIENTIST Office Visit [address] [address] Aicha Cuello MD [address] [place] [address] documented as of this encounter Visit Diagnoses Not on filedocumented in this encounter Additional Health Concerns Infection Onset Date Last Indicated Resolved Time COVID-19 Rule Out 05/05/2025 05/05/2025 05/05/2025 9:48 PM CDT Assessment Noted Time PHQ-9 Depression Total Score: 10 020 11:26 AM CDT documented as of this encounter Care Teams Pulmonary Disease Specialist Relationship Specialty Start Date End Date Aicha Cuello MD [address] [place] [address] PCP - General FAMILY PRACTICE 08/21/18 documented as of this encounter
--- OUTSIDE RECORDS SUMMARY | 2025-06-26 00:47 | XMS_ITS | Clinical Summary ---
Author Organization [facility] Address [address] [place] [address] Care Team Providers Care Clinical Education Coordinator Name Role Phone Aicha Cuello MD Primary Care Provider Mariola Suarez Unavailable [phone] Jm Boyle MD Unavailable [phone] Vincent Byrd MD Unavailable [phone] Allergies Active Allergy Reactions Criticality Noted Date [...] (11/22/2022): Added automatically from request for surgery [id number] Allergic rhinitis due to animal hair and [...] Type Department Care Team Description 05/20/2025 Telephone [facility] Medicine Endocrinology Metabolism and Lipid [address] [facility] [address], [address] [place] [address] Marisa Sandhu, ANTOINETTE Prior Auth; [...] on file Legal Sex Female 10:50 PM LAYER UP Gender Identity Female 10/15/2018 11:21 AM LAYER UP Sexual Orientation Not on file Occupation Industry [...] 37 C (98.6 F) 10/28/2024 10:45 AM LAYER UP Respiratory Rate 18 10/28/2024 10:45 AM LAYER UP Oxygen Saturation 100% 05/01/2024 12:10 PM CDT [...] HEPATITIS C ANTIBODY Routine 11/25/2021 2:33 PM LAYER UP Screening for STD (sexually transmitted disease) THINPREP TIS PAP AND HR HPV DNA REFLEX GENOTYPES 16,18 Routine 11/18/2021 4:58 PM LAYER UP from Last 3 Months or Most Recently Relevant to Health Maintenance Results * Testosterone, Total, LC/MS (04/15/2025 3:54 PM CDT) Testosterone 8 2 - 45 ng/dL [employer] Comment: For additional information, please refer to https://education.Azure Power.[employer] Analytics/faq/TotalTestosteroneLCMSMS (This link is being provided for informational/educational purposes only.) (Note) This test was developed and its analytical performance characteristics have been determined by [employer]. It has not been cleared or approved by the FDA. This assay has been validated pursuant to the CLIA regulations and is used for clinical purposes. [facility] [address] [place] [address] [facility] [address] Chelsey Díaz MD, PhD Blood 04/15/2025 3:54 PM CDT 04/15/2025 3:55 PM CDT us Isaura Olivares MD LAB BLOOD ORDERABLES Fi nal Result [facility] [address] [place] [address], [address] [place] [address] * eGFR (04/17/2024 11:34 AM CDT) eGFR [...] MD LAB BLOOD ORDERABLES Fi nal Result [facility] [place] [address] * (ABNORMAL) POCT hemoglobin A1c (04/17/2024 11:09 AM CDT) Hgb A1C, POC 6.0(H) 4.0 - 5.6 % Est Average Gluc POC 126 mg/dL [facility] Comment: The ADA recommends reporting an estimated Average Glucose (eAG) with all Hemoglobin A1c results using the equation derived from a study of 507 normal and diabetic adults. Minority populations were underrepresented and children were not included. (Diabetes Care 31:3979-5547, 2008). The eAG is not equivalent to a fasting glucose. Blood 04/17/2024 11:0 9 AM CDT 04/17/2024 11:09 AM CDT us Isaura Olivares MD POINT OF CARE TEST ROGER MCCLENDON Final Result [facility] VILLANUEVA [address] [facility] [place] [address] * Albumin Creatinine Ratio, Urine (03/28/2023 3:11 [...] ORDERABLES Zora l Result Performing Organization Address [facility] Co de Phone Number [facility] [address] [place] [address] * Lipid panel (05/12/2022) Blood specimen (specimen) [...] prior imaging studies performed at [facility] on 10/29/2015, and at [place], [place] on 10/11/2018 and 12/15/2020. There are [...] prior imaging studies performed at [facility] on 10/29/2015,and at [facility]. [place], [place] on 10/11/2018 and 12/15/2020. There are scattered areas of fibroglandular density. There is no suspicious abnormality in either breast. Impression: There is no mammographic evidence of malignancy. Annual screening mammography is recommended. OVERALL FINAL ASSESSMENT: BI-RADS CATEGORY 1: Negative. Linn Gómez NP IM MAMMO PROCEDURES Final Result * Hepatitis C antibody (11/25/2021 2:33 PM LAYER UP) Hep C Ab NON-REACTI VE NON-REACT DANELLE [facility] SIGNAL TO CUT-OFF 0.04 <1.00 [facility] Comment: HCV antibody was non-reactive. There is no laboratory evidence of HCV infection. In most cases, no further action is required. However, if recent HCV exposure is suspected, a test for HCV RNA (test code 74186) is suggested. For additional information please refer to http://education.FreshOffice/faq/YUQ28a3 (This link is being provided for informational/ educational purposes only.) Blood specimen (specimen) 11/25/2021 2:33 PM LAYER UP 11/25/2021 2:34 PM LAYER UP Linn Gómez NP LAB MICROBIOLOGY - G ENERAL ORDERABLES Final Result [facility] [address] [address] [facility] [address] [address] * THINPREP TIS PAP AND HR HPV DNA REFLEX GENOTYPES 16,18 (11/18/2021 4:58 PM LAYER UP) CLINICAL INFORMATION: SCREENING PERIMENOPAUSAL [facility] LMP 11/02/2021 [facility] Previous Pap INFORMATION NOT PROVIDED [facility] Prev. Bx INFORMATION NOT PROVIDED [facility] SOURCE: Cervix, Endocervix [facility] Pap, specimen adequacy Satisfactory for evaluation. Endocervical/mckee sformation zone component present. [facility] HPV interp Negative for intraepithelial lesion or malignancy. [facility] COMMENTS This Pap test has been evaluated with computer assisted technology. [facility] Respite Worker MMW, CT(ASCP) CT screening location: [place] [address] Comment [facility] Comment: EXPLANATORY NOTE: The Pap is [...] Not Detected NOT DETECTED [facility] Comment: Not Detected High Risk HPV types (16,18,31,33,35,39,45,51,52, 56,58,59,66,68) were not detected. Other HPV types which cause anogenital lesions may be present. The significance of the other types of HPV in malignant processes has not been established. Methodology: Real Time PCR 11/18/2021 4:58 PM LAYER UP 11/21/2021 5:31 AM LAYER UP Linn Gómez NP LAB CYTOLOGY ORDERAB LES Final Result [facility] [address] [place] [address] [facility] [address] [place] [address] from Last 3 Months or Most Recently Relevant to Health Maintenance Insurance [facility] [employer] Care Teams Clinical Education Coordinator Relationship Specialty Start Date End Date Aicha Cuello MD [address] [place] [address] PCP - General Family Practice 10/15/18 Mariola Suarez PA [address] [place] [address] Physician Brake Operator Heavy Duty Dermatology 04/22/21 Jm Boyle MD [address] [place] [address] Loom Fixer Helper Dermatology 04/22/21 Vincent Byrd MD [address] [place] [address] Consulting Physician Plastic Surgery 12/05/22
--- NOTE | 2025-06-26 06:50 | WPDANESEPPF ---
Anes - Initial Pre Proc Eval Procedure: Operation Date: 06/26/25 07:30 Proposed Procedures p Right Extracorporeal Shock Wave Lithotripsy - Holden Hudson MD Date/Time: 06/26/25 06:50 Surgeon: Holden Hudson MD Pre Op Diagnosis: Right Ureteral Kidney stone Patient Data Age: 55 Gender: F Height: 1.63 m Weight: 77.2 kg Allergies Allergy/AdvReac Type Severity Reaction Status Date / Time No Known Allergies Allergy Verified 06/26/25 06:57 Home Medications ?Medication ?Instructions ?Recorded ?Confirmed ?Type bupropion HCl 300 mg 24 hr tablet, 300 mg PO DAILY 03/03/25 06/18/25 History extended release ezetimibe 10 mg tablet 10 mg PO HS 03/03/25 06/18/25 History multivitamin (Daily Multi-Vitamin 1 tablet PO DAILY 03/03/25 06/18/25 History tablet) rosuvastatin 10 mg tablet 10 mg PO HS 03/03/25 06/18/25 History semaglutide 2 mg/dose (8 mg/3 mL) 2 mg subcut WEEKLY 03/03/25 06/18/25 History subcutaneous pen injector (Ozempic) oxybutynin chloride 5 mg tablet 5 mg PO BID PRN bladder spasms #30 03/27/25 06/18/25 Rx tabs Patient hx anesthesia problems: none Family hx anesthesia problems: none Results Review: All pre-operative results and documents have been reviewed as part of the pre-operative evaluation. [facility] Past Medical History Medical History (Updated 06/25/25 @ 15:33 by Hussain Mann DO) Hyperlipidemia Diabetes LISA (obstructive sleep apnea) Obesity Social History Social History Smoking status: Never smoker Alcohol intake: current Drinks per week: 1 Substance use: never Substance use type: does not use Living arrangements: with family Spiritual care concerns: No Anes - Eval Final PreProcedure Day of Procedure 06/26/25 06:50 Patient weight: overweight Heart: regular rate and rhythm Lungs: clear to auscultation Airway: Mallampati scale class II Neurological: alert and oriented Last oral intake: >/= 8 hours ASA classification: III Emergent: no Anesthetic plan: proceed Anesthesia type and monitoring: general LMA and standard monitoring Results Review: All pre-operative results and documents have been reviewed as part of the pre-operative evaluation. Informed Consent: The patient's anesthetic plan and its attendant risks and benefits were discussed with the patient/family/POA. Questions were solicited and answers provided to the satisfaction of the patient/family/POA.
--- NOTE | 2025-06-26 07:13 | WPDHPUPDATE1 ---
History and Physical Update Update Date/Time: 06/26/25 07:13 patient had recent urine culture that grew Enterococcus but she is asymptomatic. We started oral antibiotics yesterday and will cover with an appropriate IV antibiotic this morning. On KUB her long slender stone had been in the right UPJ was a bit difficult to identify but, on noncontrast CT scan, is clearly in her right kidney. Will proceed with cystoscopy, right ureteral stent placement and right ESWL History and Physical has been reviewed, including an updated exam of the patient. There are NO changes in the patient's condition. Risks, benefits, and alternatives have been discussed and questions answered. Patient agrees to proceed with procedure.
[2025-06-26] MEDS: levoFLOXacin 500 MG/D5W 100 ML 500 MG/100 ML BAG 100 MG IVPB (07:36)
--- NOTE | 2025-06-26 08:04 | W.PM.PROC2 ---
Procedure Note - Detailed Date of Procedure 06/26/25 Pre-op Diagnosis Right Kidney stone Post-op Diagnosis Same Procedure Performed Cystoscopy, right ureteral stent placement, right ESWL Surgeon Holden Hudson MD Anesthesia General Description of Procedure The patient was brought to the operative suite where she was prepped and draped in a routine sterile fashion while in the frog-legged position. A 16F flexible cystoscope was placed in her bladder and the bladder was circumferentially inspected. The bladder neck and urethra were endoscopically normal. The bladder mucosa was without hyperemia. There was no intravesical foreign body or neoplasm. There was a single orthotopic ureteral orifice bilaterally. I advanced .035 glidewire into the right renal pelvis under fluoroscopy. A 4.8F variable length ureteral stent was positioned with the proximal coil in the renal pelvis and the distal coil in the bladder. Scopes and wires were removed. her long narrow right renal calculus was then positioned in the focal point of the Sigma Lithotripter for a total of 2500 shocks were delivered at a poere of 1-4. Drains Yes Packing No Pathology None sent Complications No immediate complications Condition Stable
[2025-06-26] MEDS: LACTATED RINGERS 1,000 ML 30 ML IV CONT (08:28)
== END 2025-06-26 09:54 | disposition home or self-care (01) ==
PROVIDERS: Visit Provider Urology
PROC: (CPT 50590; principal; 2025-06-26 07:30)
PROC: (CPT 52310; 2025-06-26 07:30)
DX: N20.0 Calculus of kidney (principal); E78.5 Hyperlipidemia, unspecified; E11.9 Type 2 diabetes mellitus without complications; G47.33 Obstructive sleep apnea (adult) (pediatric); Z79.85 Long-term (current) use of injectable non-insulin antidiabetic drugs
CPT/HCPCS: 52332; 50590; 74018; 74176; 82948; C2617; J1100; J1956; J2250; J2405; J2704; J7120

== ENCOUNTER 2025-07-07 14:15 | Outpatient (CLI) | payer BC, SELFPAY ==
--- OUTSIDE RECORDS SUMMARY | 2018-10-11 01:00 | XMS_ITS | Encounter Summary ---
Author Organization [facility] Address [address] [place] [address] Care Team Providers Care Chalk Tester Name Role Phone Sari Cali MD Primary Care Provider Maryam Hilario MD Unavailable [phone] Reason for Visit * Diagnostic Imaging (Routine) - Closed Specialty Diagnoses / Procedures Referred By Renee pablo Referred To Contact Procedures Breast Imaging Screening Outside Reference Referral, Self Referral ID Status Reason Start Date Expiration Date Visits Re quested Visits Authorized [id number] Closed 01/12/2022 02/11/2023 1 1 Encounter Details Date Type Department Care Team (Late st Contact Info) Description 10/11/2018 Hospital Encounter [facility] [place] [address] Social History Tobacco Use Types Packs/Day Years Used Date Smoking Tobacco: Never Smokeless Tobacco: Never Alcohol Use Standard Drinks/Week Comments Yes 0 (1 standard drink = 0.6 oz pur e alcohol) socially AUDIT-C Answer Date Recorded Q1: How often do you have a drink containing alcohol? Never 10/28/2024 Q2: How many drinks containi ng alcohol do you have on a typical day when you are drinking? Patient does not drink Q3: How often do you have si x or more drinks on one occasion? Never 10/28/2024 Exercise Vital Sign Answer Date Recorde d On average, how many days pe r week do you engage in moderate to strenuous exercise (like a brisk walk)? 3 days 10/06/2020 On average, how many minutes do you engage in exercise at this level? 30 min 10/06/2020 Personal Safety Answer Date Recorded Have you ever been in or are you currently in a harmful physical or emotional relationship or is someone making you feel afraid or unsafe? Denies 05/01/2024 Comments No Sex and Gender Information Value Date Recorded Sex Assigned at Not on file Legal Sex Female 10:50 PM FAMILY PRESERVATION WORKER Gender Identity Female 10/15/2018 11:21 AM FAMILY PRESERVATION WORKER Sexual Orientation Not on file Occupation Industry Job Start Date Job End Date [employer] Not on file Not on file Not on file documented as of this encounter Functional Status * AUDIT-C Score Answer Date of Assessment Author 0 10/28/2024 10:45 AM Katelynn Hinojosa RMA * Question Answer Date of Assessment Author Q1: How often do you have a drink containing alcohol? Never 10/28/2024 10:45 AM Katelynn Hinojosa RMA Q2: How many drinks containing alcohol do you have on a typical day when you are drinking? Patient does not drink 10/28/2024 10:45 AM Katelynn Hinojosa RMA Q3: How often do you have six or more drinks on one occasion? Never 10/28/2024 10:45 AM Katelynn Hinojosa RMA documented as of this encounter Plan of Treatment Not on file documented as of this encounter Procedures Procedure Name Priority Date/Time Associated Diagnosis Comments BREAST IMAGING MG SCREENING OUTSIDE REFERENCE Routine 10/11/2018 12:00 AM FAMILY PRESERVATION WORKER documented in this encounter Results * Breast Imaging Screening Outside Reference (10/11/2018 12:00 AM FAMILY PRESERVATION WORKER) Impressions RAD_MAMMO_BJ - 01/12/2022 10:01 AM CDT These images are for Reference purposes only and have not been reviewed by [facility] Radiology. There will be no report generated by a [facility] Radiologist. Narrative RAD_MAMMO_BJH - 01/12/2022 10:01 AM CDT EXAMINATION: Images For Reference Purposes Only us Self Referral IMG MAMMO PROCEDURES Final Resul t RAD_MAMMO_BJ documented in this encounter Visit Diagnoses Not on filedocumented in this encounter Additional Health Concerns Infection Onset Date Last Indicated Resolved Time MRSA Comment:Germ watcher auto flagging 07/24/2013 07/24/201305/04 5:00 AM CDT documented as of this encounter Care Teams Chalk Tester Relationship Specialty Start Date End Date Sari Cali MD [address] [facility] [address] [place] [address] PCP - General 01/15/17 10/14/18 Maryam Muller MD [address] [place] [address] Internal Medicine 02/14/17 10/14/18 documented as of this encounter
--- OUTSIDE RECORDS SUMMARY | 2020-12-15 | XMS_ITS | Encounter Summary ---
Author Organization [facility] Healthcare Address [address] [place] [address] Care Team Providers Care Surveyor Instrument Assistant Name Role Phone Aicha Cuello MD Primary Care Provider Reason for Visit * Diagnostic Imaging (Routine) - Closed Specialty Diagnoses / Procedures Referred By Erisac t Referred To Contact Diagnoses Lung nodule Procedures Breast Imaging Screening Outside Reference Referral, Self Referral ID Status Reason Start Date Expiration Date Visits Re quested Visits Authorized [id number] Closed 01/12/2022 02/11/2023 1 1 Encounter Details Date Type Department Care Team (Late st Contact Info) Description 12/15/2020 Hospital Encounter [facility] Radiology [facility] [address] [place] [address] Social History Tobacco Use Types Packs/Day Years [...] on file Legal Sex Female 10:50 PM BRICK STACKER Gender Identity Female 10/15/2018 11:21 AM BRICK STACKER Sexual Orientation Not on file Occupation Industry [...] only and have not been reviewed by [facility] Radiology. There will be no report generated by a [facility] Radiologist. Narrative RAD_MAMMO_BJH - 01/12/2022 10:01 [...] documented as of this encounter Care Teams Surveyor Instrument Assistant Relationship Specialty Start Date End Date Aicha Cuello MD [facility] [place] [address] PCP - General Family Practice 10/15/18 documented as of this encounter
--- OUTSIDE RECORDS SUMMARY | 2024-12-25 12:30 | XMS_ITS ---
Author Organization [facility] [place] ([address]) Address [address] [place] [address] Care Team Providers Care Wheat And Oats Flake Miller Name Role Phone Aicha Cuello Primary Care Provider Zackery Manning Unavailable [phone] Rashid Palafox Unavailable [phone] REASON FOR VISIT SCIT - Traditional Schedule Allergy Immunotherapy Encounters Encounter Location Date Provider Diagnosis [facility] [place] [address] [place] [address] 12/25/2024 Rashid Palafox Allergic rhinitis due to pollen J30.1 ; Other allergic rhinitis J30.89 ; Allergic rhinitis due to animal (cat) (dog) hair and dander J30.81 and Other chronic allergic conjunctivitis H10.45 Assessments Encounter Date Diagnosis (ICD Code) Assessment Notes Treatment Notes Treatment Clinical Notes Section Notes 12/25/2024 Allergic rhinitis due to pollen (ICD-10 - J30.1) 12/25/2024 Other allergic rhinitis (ICD-10 - J30.89) 12/25/2024 Allergic rhinitis due to animal (cat) (dog) hair and dander (ICD-10 - J30.81) 12/25/2024 Other chronic allergic conjunctivitis (ICD-10 - H10.45) Plan Of Treatment Next Appt Details Follow Up: 1 Week, Reason: Provider Name:Rashid Palafox , 07/30/2025 03:30:00 PM, [address] [place], [address], Progress Notes * Shant DAVISraDOB:1970 (55 yo F)Acc No.[id number]:12/25/2024 SCIT-Aeroallergen Patient: Armida JONES Provider: Nayeli Palafox MD :1970 A ge:54 Y S ex:Female Date:12/25/2024 Address:[address] [place], [place] [id number] Pcp:Aicha Cuello Subjective: * Chief Complaints: * 1 . SCIT - Traditional Schedule Allergy Immunotherapy. * HPI: * Introduction: The patient is here for scheduled immunotherapy. Please see the attached specialty form regarding the specifics of the administration of these vaccines. As per our protocol, they must undergo a screening health questionnaire (medication changes, reaction(s) to last immunotherapy dose(s), current health status, ACT (if appropriate), self-injectable epinephrine on patient(?) and peak flow (if appropriate)). Also, the patient must wait in our office for 30 minutes after receiving the vaccine(s). Furthermore, every patient must have an epinephrine pen (self-injectable) with them at the time of administration--and carry if for the following 1.5 hours after they leave our office. The patient must also have taken their antihistamine the day of the injection, preferably 2 hours prior. The consent form for SCIT (subcutaneous immunotherapy) is on file. * Medical History: Objective: * Vitals: Assessment: * Assessment: 1. A llergic rhinitis due to pollen - J30.1 (Primary) 2 . O ther allergic rhinitis - J30.89 3 . A llergic rhinitis due to animal (cat) (dog) hair and dander - J30.81 4 . O ther chronic allergic conjunctivitis - H10.45 Plan: * Treatment: * Follow Up: 1 Week * Billing Information: * Visit Code: * Procedure Codes: 12492 IMMUNOTHERAPY INJECTIONS. * Electronic signature of Cassidy Palafox MD, FAAAAI on 07/07/2025 at 05:53 PM CDT Sign off status: Pending * Provider: Nayeli Palafox MD Date: 0 12/25/2024 Generated for Magi Varma/eTransmitting on: 1 05:53 PM CDT History and Physical Notes * HPI (History of Present Illness) Category Sub-Category Detail Notes Category Not es *Introduction The patient is here for scheduled immunotherapy. Please see the attached specialty form regarding the specifics of the administration of these vaccines. As per our protocol, they must undergo a screening health questionnaire (medication changes, reaction(s) to last immunotherapy dose(s), current health status, ACT (if appropriate), self-injectable epinephrine on patient(?) and peak flow (if appropriate)). Also, the patient must wait in our office for 30 minutes after receiving the vaccine(s). Furthermore, every patient must have an epinephrine pen (self-injectable) with them at the time of administration--and carry if for the following 1.5 hours after they leave our office. The patient must also have taken their antihistamine the day of the injection, preferably 2 hours prior. The consent form for SCIT (subcutaneous immunotherapy) is on file.
--- OUTSIDE RECORDS SUMMARY | 2025-03-24 12:30 | XMS_ITS ---
Author Organization [facility] [place] ([address]) Address [address] [place] [address] Care Team Providers Care Textiles Printer Name Role Phone Aicha Cuello Primary Care Provider Zackery Manning Unavailable [phone] Rashid Palafox Unavailable [phone] REASON FOR VISIT SCIT - Traditional Schedule Allergy Immunotherapy Encounters Encounter Location Date Provider Diagnosis [facility] - [place] [address] [place] [address] 03/24/2025 Rashid Palafox Allergic rhinitis due to [...] , 07/30/2025 03:30:00 PM, [address] [place], [address], Progress Notes * Shant DAVISraDOB:1970 (55 yo F)Acc No.[id number]:03/24/2025 SCIT-Aeroallergen Patient: Armida JONES Provider: Nayeli Palafox MD :1970 A ge:54 Y S ex:Female Date:03/24/2025 Address:[address] [place], [place] [address] Pcp:Aicha Cuello Subjective: * Chief Complaints: * [...] Information: * Visit Code: * Procedure Codes: 29546 IMMUNOTHERAPY INJECTIONS. * Electronic signature of Cassidy Palafox MD, FAAAAI on 07/07/2025 at 05:53 PM CDT Sign off status: Pending * Provider: Nayeli Palafox MD Date: 0 03/24/2025 Generated for Magi Varma/eTransmitting on: 1 05:53 [...]
--- OUTSIDE RECORDS SUMMARY | 2025-06-23 10:40 | XMS_ITS ---
Author Organization [facility] [employer] [place] ([address]) Address [address] [place] [address] Care Team Providers Care French Pastry Cook Name Role Phone Aicha Cuello Primary Care Provider Zackery Manning Unavailable [phone] Rashid Palafox Unavailable [phone] REASON FOR VISIT SCIT - Traditional Schedule Allergy Immunotherapy Encounters Encounter Location Date Provider Diagnosis [facility] [place] [address] [place] [address] 06/23/2025 Rashid Palafox Allergic rhinitis due to pollen J30.1 ; Other allergic rhinitis J30.89 ; Allergic rhinitis due to animal (cat) (dog) hair and dander J30.81 and Other chronic allergic conjunctivitis H10.45 Assessments Encounter Date Diagnosis (ICD Code) Assessment Notes Treatment Notes Treatment Clinical Notes Section Notes 06/23/2025 Allergic rhinitis due to pollen (ICD-10 - J30.1) 06/23/2025 Other allergic rhinitis (ICD-10 - J30.89) 06/23/2025 Allergic rhinitis due to animal (cat) (dog) hair and dander (ICD-10 - J30.81) 06/23/2025 Other chronic allergic conjunctivitis (ICD-10 - H10.45) Plan Of Treatment Next Appt Details Follow Up: 1 Week, Reason: Provider Name:Rashid Palafox , 07/30/2025 03:30:00 PM, [address] [place], [address], Progress Notes * Shant DAVISraDOB:1970 (55 yo F)Acc No.[id number]:06/23/2025 SCIT-Aeroallergen Patient: Armida JONES Provider: Nayeli Palafox MD :1970 A ge:55 Y S ex:Female Date:06/23/2025 Address:[address] [place], [place] [address] Pcp:Aicha Cuello Subjective: * Chief Complaints: * [...] Information: * Visit Code: * Procedure Codes: 51708 IMMUNOTHERAPY INJECTIONS. * Electronic signature of Cassidy Palafox MD, FAAAAI on 07/07/2025 at 05:54 PM CDT Sign off status: Pending * Provider: Nayeli Palafox MD Date: 1 Generated for Magi Varma/eTransmitting on: 1 05:54 PM CDT History and Physical Notes * [...]
--- NOTE | ~2025-07-07 | XR_ITS ---
EXAMINATION: XR abdomen/kub 1V, 07/07/2025 14:25 CDT HISTORY: N20.0 - Calculus of kidney COMPARISON: No comparisons available. Technique: 3 view. Findings: Bowel gas pattern unremarkable. No obstruction. Moderate fecal content obscures evaluation, no renal calculi noted. No acute osseous abnormality. Right stent in appropriate location. Impression: 1. No acute abnormality. Reviewed, dictated and finalized at location P. Impression: 1. No acute abnormality.
--- OUTSIDE RECORDS SUMMARY | 2025-07-07 17:53 | XMS_ITS | Encounter Summary ---
Author Organization [facility] [facility] Address [address] [place] [address] Care Team Providers Care Respiratory Practitioner Name Role Phone Aicha Cuello MD Primary Care Provider Encounter Details Date Type Department Care Team (Late st Contact Info) Description 12/08/1998 Outpatient Historical HIS [facility] PRIMARY CARE Ciara Velasco MD Social History Tobacco Use Types Packs/Day Years Used Date Smoking Tobacco: Never Assessed Comments Unknown Sex and Gender Information Value Date Recorded Sex Assigned at Not on file Legal Sex Female 4:21 AM HOMICIDE INVESTIGATOR Gender Identity Not on file Sexual Orientation Not on file documented as of this encounter Plan of Treatment Not on file documented as of this encounter Visit Diagnoses Not on filedocumented in this encounter Care Teams Respiratory Practitioner Relationship Specialty Start Date End Date Aicha Cuello MD [address] [place] [address] PCP - General Family Practice 09/12/19 documented as of this encounter
--- OUTSIDE RECORDS SUMMARY | 2025-07-07 17:53 | XMS_ITS | Encounter Summary ---
Author Organization [employer] Address [address] [place] [address] Care Team Providers Care Arts Manager Name Role Phone Aicha Cuello MD Primary Care Provider Encounter Details Date Type Department Care Team (Late st Contact Info) Description 05/13/1999 Outpatient Historical HIS [facility] PRIMARY CARE Ciara Velasco MD Social History Tobacco Use Types Packs/Day Years Used Date Smoking Tobacco: Never Assessed Comments Unknown Sex and Gender Information Value Date Recorded Sex Assigned at Not on file Legal Sex Female 4:21 AM FOREST SUPERVISOR Gender Identity Not on file Sexual Orientation Not on file documented as of this encounter Plan of Treatment Not on file documented as of this encounter Visit Diagnoses Not on filedocumented in this encounter Care Teams Arts Manager Relationship Specialty Start Date End Date Aicha Cuello MD [address] [place] [address] PCP - General Family Practice 09/12/19 documented as of this encounter
--- OUTSIDE RECORDS SUMMARY | 2025-07-07 17:53 | XMS_ITS | Encounter Summary ---
Author Organization [employer] Address 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
--- OUTSIDE RECORDS SUMMARY | 2025-07-07 17:53 | XMS_ITS | Encounter Summary ---
Author Organization [facility] [employer] Address [address] [place] [address] Care Team Providers Care Real Estate Appraiser Supervisor Name Role Phone Aicha Cuello MD Primary [...] on file Legal Sex Female 4:21 AM WIRE WEAVER CLOTH Gender Identity Not on file Sexual Orientation Not on file documented as of this encounter Plan of Treatment Not on file documented as of this encounter Visit Diagnoses Not on filedocumented in this encounter Care Teams Real Estate Appraiser Supervisor Relationship Specialty Start Date End Date Aicha Cuello MD [address] [place] [address] PCP - General Family Practice 09/12/19 documented as of this encounter
--- OUTSIDE RECORDS SUMMARY | 2025-07-07 17:53 | XMS_ITS | Encounter Summary ---
Author Organization [facility] Address [address] [place] [address] Care Team Providers Care Forensic Psychologist Name Role Phone Aicha Cuello MD Primary Care Provider [phone] Encounter Details Date Type Department Care Team (Late Contact Info) Description 07/25/2024 MyChart Message Enc [address] [address] Aicha Cuello MD [address] [place] [address] Back pain Social History Tobacco Use Types Packs/Day Years Used Date Smoking Tobacco: Never Smokeless Tobacco: Never Alcohol Use Standard Drinks/Week Comments Not Currently 0 (1 standard drink = 0.6 oz pur e alcohol) PHQ-2 Answer Date Recorded Patient Health Questionnaire-2 Score 0 06/30/2024 Comments No Sex and Gender Information Value Date Recorded Sex Assigned at Female 10/10/2024 3:28 PM SIGN PAINTER Legal Sex Female 8:27 PM CDT Gender Identity Female 11/06/2024 2:42 PM SIGN PAINTER Sexual Orientation Not on file documented as of this encounter Plan of Treatment Upcoming Encounters Date Type Department Care Team (Late Contact Info) Description 07/29/2025 2:40 PM SIGN PAINTER Office Visit [address] [address] Aicha Cuello MD [address] [place] [address] documented as of this encounter Visit Diagnoses Not on filedocumented in this encounter Additional Health Concerns Infection Onset Date Last Indicated Resolved Time COVID-19 Rule Out 05/05/2025 05/05/2025 05/05/2025 9:48 PM CDT Assessment Noted Time PHQ-9 Depression Total Score: 1 05/14/20 24 9:45 AM CDT documented as of this encounter Care Teams Forensic Psychologist Relationship Specialty Start Date End Date Aicha Cuello MD [address] [place] [address] PCP - General FAMILY PRACTICE 08/21/18 documented as of this encounter
--- OUTSIDE RECORDS SUMMARY | 2025-07-07 17:53 | XMS_ITS | Encounter Summary ---
Author Organization [facility] Address [address] [place] [address] Care Team Providers Care Houseperson Name Role Phone Aicha Cuello MD Primary Care Provider [phone] Encounter Details Date Type Department Care Team (Late st Contact Info) Description 08/02/2021 [employer] Message Enc [address] [address] Aicha Cuello MD [address] [place] [address] Medication Questions Social History Tobacco Use [...] Sex Assigned at Female 10/10/2024 3:28 PM ENCYCLOPEDIA RESEARCH WORKER Legal Sex Female 8:27 PM CDT Gender Identity Female 11/06/2024 2:42 PM ENCYCLOPEDIA RESEARCH WORKER Sexual Orientation Not on file documented as of this encounter Plan of Treatment Upcoming Encounters Date Type Department Care Team (Late Contact Info) Description 07/29/2025 2:40 PM ENCYCLOPEDIA RESEARCH WORKER Office Visit [address] [address] Aicha Cuello MD [address] [place] [address] documented as of this encounter Visit Diagnoses Not on filedocumented in this encounter Additional Health Concerns Infection Onset Date Last Indicated Resolved Time COVID-19 Rule Out 05/05/2025 05/05/2025 05/05/2025 9:48 PM CDT Assessment Noted Time PHQ-9 Depression Total Score: 10 020 11:26 AM CDT documented as of this encounter Care Teams Houseperson Relationship Specialty Start Date End Date Aicha Cuello MD [address] [place] [address] PCP - General FAMILY PRACTICE 08/21/18 documented as of this encounter
--- OUTSIDE RECORDS SUMMARY | 2025-07-07 17:53 | XMS_ITS | Encounter Summary ---
Author Organization [employer] Address [address] [place] [address] Care Team Providers Care Wax Pot Tender Name Role Phone Aicha Cuello MD Primary Care Provider Encounter Details Date Type Department Care Team (Late st Contact Info) Description 07/28/1999 Outpatient Historical HIS [facility] PRIMARY CARE Jayda Telles MD [address] [place] [address] Social History Tobacco Use Types Packs/Day Years Used Date Smoking Tobacco: Never Assessed Comments Unknown Sex and Gender Information Value Date Recorded Sex Assigned at Not on file Legal Sex Female 4:21 AM UNIVERSITY ADMINISTRATIVE ASSISTANT Gender Identity Not on file Sexual Orientation Not on file documented as of this encounter Plan of Treatment Not on file documented as of this encounter Visit Diagnoses Not on filedocumented in this encounter Care Teams Wax Pot Tender Relationship Specialty Start Date End Date Aicha Cuello MD [address] [place] [address] PCP - General Family Practice 09/12/19 documented as of this encounter
--- OUTSIDE RECORDS SUMMARY | 2025-07-07 17:53 | XMS_ITS | Clinical Summary ---
Author Organization [facility] Address [address] [place] [address] Care Team Providers Care Pneumatic Systems Operator Name Role Phone Aicha Cuello MD Primary Care Provider Mariola Suarez Unavailable [phone] Jm Boyle MD Unavailable [phone] Vincent Byrd MD Unavailable [phone] Allergies Active Allergy Reactions Criticality Noted Date [...] (11/22/2022): Added automatically from request for surgery [id number] Allergic rhinitis due to animal hair and [...] Type Department Care Team Description 05/20/2025 Telephone [facility] Medicine Endocrinology Metabolism and Lipid [address] [facility] [address], [address] [place] [address] aMrisa Sandhu, ANTOINETTE Prior Auth; ozempic from Last [...] on file Legal Sex Female 10:50 PM ASSOCIATE MEDIA DIRECTOR Gender Identity Female 10/15/2018 11:21 AM ASSOCIATE MEDIA DIRECTOR Sexual Orientation Not on file Occupation Industry [...] 37 C (98.6 F) 10/28/2024 10:45 AM ASSOCIATE MEDIA DIRECTOR Respiratory Rate 18 10/28/2024 10:45 AM ASSOCIATE MEDIA DIRECTOR Oxygen Saturation 100% 05/01/2024 12:10 PM CDT [...] HEPATITIS C ANTIBODY Routine 11/25/2021 2:33 PM ASSOCIATE MEDIA DIRECTOR Screening for STD (sexually transmitted disease) THINPREP TIS PAP AND HR HPV DNA REFLEX GENOTYPES 16,18 Routine 11/18/2021 4:58 PM ASSOCIATE MEDIA DIRECTOR from Last 3 Months or Most Recently Relevant to Health Maintenance Results * Testosterone, Total, LC/MS (04/15/2025 3:54 PM CDT) Testosterone 8 2 - 45 ng/dL [facility] Comment: For additional information, please refer to https://education.Poptent.Datometry/faq/TotalTestosteroneLCMSMS (This link is being provided for informational/educational purposes only.) (Note) This test was developed and its analytical performance characteristics have been determined by [employer]. It has not been cleared or approved by the FDA. This assay has been validated pursuant to the CLIA regulations and is used for clinical purposes. [facility] [address] [facility] [employer] [address],[address] [facility] [address] Chelsey Díaz MD, PhD Blood 04/15/2025 3:54 PM CDT 04/15/2025 3:55 PM CDT us Isaura Olivares MD LAB BLOOD ORDERABLES Fi nal Result [email or web address] [address] [facility] [employer] [address], [address] [place] [address] * eGFR (04/17/2024 11:34 AM CDT) eGFR [...] MD LAB BLOOD ORDERABLES Fi nal Result [facility] Department [place] [address] * (ABNORMAL) POCT hemoglobin A1c (04/17/2024 11:09 AM CDT) Hgb A1C, POC 6.0(H) 4.0 - 5.6 % Est Average Gluc POC 126 mg/dL [facility] Comment: The ADA recommends reporting an estimated Average Glucose (eAG) with all Hemoglobin A1c results using the equation derived from a study of 507 normal and diabetic adults. Minority populations were underrepresented and children were not included. (Diabetes Care 31:8282-8113, 2008). The eAG is not equivalent to a fasting glucose. Blood 04/17/2024 11:0 9 AM CDT 04/17/2024 11:09 AM CDT us Isaura Olivares MD POINT OF CARE TEST ROGER MCCLENDON Final Result [facility] Department [place] [address] * Albumin Creatinine Ratio, Urine (03/28/2023 3:11 [...] ORDERABLES Zora l Result Performing Organization Address [facility] Co de Phone Number [facility] [address] [place] [address] * Lipid panel (05/12/2022) Blood specimen (specimen) [...] compared to prior imaging studies performed at [facility] on 10/29/2015, and at [place], [place] on 10/11/2018 and 12/15/2020. There are [...] compared to prior imaging studies performed at [facility] on 10/29/2015,and at [facility] [place], [place] on 10/11/2018 and 12/15/2020. There are scattered areas of fibroglandular density. There is no suspicious abnormality in either breast. Impression: There is no mammographic evidence of malignancy. Annual screening mammography is recommended. OVERALL FINAL ASSESSMENT: BI-RADS CATEGORY 1: Negative. Linn Gómez NP IM MAMMO PROCEDURES Final Result * Hepatitis C antibody (11/25/2021 2:33 PM ASSOCIATE MEDIA DIRECTOR) Hep C Ab NON-REACTI VE NON-REACT DANELLE [facility] SIGNAL TO CUT-OFF 0.04 <1.00 [facility] Comment: HCV antibody was non-reactive. There is no laboratory evidence of HCV infection. In most cases, no further action is required. However, if recent HCV exposure is suspected, a test for HCV RNA (test code 82821) is suggested. For additional information please refer to http://education.Zecco/faq/GFS27d7 (This link is being provided for informational/ educational purposes only.) Blood specimen (specimen) 11/25/2021 2:33 PM ASSOCIATE MEDIA DIRECTOR 11/25/2021 2:34 PM ASSOCIATE MEDIA DIRECTOR Linn Gómez NP LAB MICROBIOLOGY - G ENERAL ORDERABLES Final Result [facility] [address] [address] [facility] [place] [address] * THINPREP TIS PAP AND HR HPV DNA REFLEX GENOTYPES 16,18 (11/18/2021 4:58 PM ASSOCIATE MEDIA DIRECTOR) CLINICAL INFORMATION: SCREENING PERIMENOPAUSAL [facility] LMP 11/02/2021 [facility] Previous Pap INFORMATION NOT PROVIDED [facility] Prev. Bx INFORMATION NOT PROVIDED [facility] SOURCE: Cervix, Endocervix [facility] Pap, specimen adequacy Satisfactory for evaluation. Endocervical/mckee sformation zone component present. [facility] HPV interp Negative for intraepithelial lesion or malignancy. [facility] COMMENTS This Pap test has been evaluated with computer assisted technology. [facility] Inspector Metal Fabricating MMW, CT(ASCP) CT screening location: [place] [address] Comment [facility] Comment: EXPLANATORY NOTE: The Pap is a [...] Not Detected NOT DETECTED [facility] Comment: Not Detected High Risk HPV types (16,18,31,33,35,39,45,51,52, 56,58,59,66,68) were not detected. Other HPV types which cause anogenital lesions may be present. The significance of the other types of HPV in malignant processes has not been established. Methodology: Real Time PCR 11/18/2021 4:58 PM ASSOCIATE MEDIA DIRECTOR 11/21/2021 5:31 AM ASSOCIATE MEDIA DIRECTOR Linn Gómez NP LAB CYTOLOGY ORDERAB LES Final Result [facility] [address] [place] [address] [facility] [address] [facility] [place] [address] from Last 3 Months or Most Recently Relevant to Health Maintenance Insurance [facility] Care Teams Pneumatic Systems Operator Relationship Specialty Start Date End Date Aicha Cuello MD [address] [place] [address] PCP - General Family Practice 10/15/18 Mariola Suarez PA [address] [place] [address] Physician Bearingizer Dermatology 04/22/21 Jm Boyle MD [address] [place] [address] Banquet Server On Call Dermatology 04/22/21 Vincent Byrd MD [address] [place] [address] Consulting Physician Plastic Surgery 12/05/22
--- OUTSIDE RECORDS SUMMARY | 2025-07-07 17:54 | XMS_ITS | Encounter Summary ---
Author Organization [facility] Address [address] [place] [address] Care Team Providers Care Photo Offset Printer Name Role Phone Aicha Cuello MD Primary Care Provider [phone] Encounter Details Date Type Department Care Team (Late st Contact Info) Description 10/18/2024 MyChart Message Enc [address] [address] Aicha Cuello MD [address] [place] [address] New medication Social History Tobacco Use Types Packs/Day Years Used Date Smoking Tobacco: Never Smokeless Tobacco: Never Alcohol Use Standard Drinks/Week Comments Not Currently 0 (1 standard drink = 0.6 oz pur e alcohol) PHQ-2 Answer Date Recorded Patient Health Questionnaire-2 Score 4 10/10/2024 Comments No Sex and Gender Information Value Date Recorded Sex Assigned at Female 10/10/2024 3:28 PM GROUND HAND Legal Sex Female 8:27 PM CDT Gender Identity Female 11/06/2024 2:42 PM GROUND HAND Sexual Orientation Not on file documented as of this encounter Plan of Treatment Upcoming Encounters Date Type Department Care Team (Late Contact Info) Description 07/29/2025 2:40 PM GROUND HAND Office Visit [address] [address] Aicha Cuello MD [address] [place] [address] documented as of this encounter Visit Diagnoses Not on filedocumented in this encounter Additional Health Concerns Infection Onset Date Last Indicated Resolved Time COVID-19 Rule Out 05/05/2025 05/05/2025 05/05/2025 9:48 PM CDT Assessment Noted Time PHQ-9 Depression Total Score: 18 025 3:49 PM GROUND HAND documented as of this encounter Care Teams Photo Offset Printer Relationship Specialty Start Date End Date Aicha Cuello MD [address] [place] [address] PCP - General FAMILY PRACTICE 08/21/18 documented as of this encounter
--- OUTSIDE RECORDS SUMMARY | 2025-07-07 17:54 | XMS_ITS | Patient Health Record ---
Author Organization [facility] [employer] ([address]) Address [address] [place] [address] Care Team Providers Care Catshovel Driver Name Role Phone Aicha Cuello Primary Care Provider UnavailZackery Lakhani Unavailable [phone] Rashid Palafox Unavailable [phone] Anita Vela Unavailable [phone] Allergies No Known Allergies Reason For Referral No Information Medications Medication SIG (Take, Route, Frequency, Duration) Notes Start Date End Date Status Fexofenadine HCl 180 MG 1 tab(s) orally Daily; Duration: 30 day(s) Active Sertraline HCl 50 MG 1 tab(s) orally onc e a day; Duration: 30 day(s) 10/12/2021 Not-Mario ing Ozempic (1 MG/DOSE) 4 MG/3ML as directed Subcutaneous Act mary lou Famotidine 40 MG 1 tab(s) orally 30 m ins prior to SCIT; Duration: 90 days Not-Taking Montelukast Sodium 10 MG 1 tab(s) orally once a day; Duration: 30 day(s) Not-Mario ing Rosuvastatin Calcium 10 MG 1 tab(s) orally [...] orally Ramona y; Duration: 30 day(s) Active Gabapentin 300 MG ; Duration: 30 [...] per schedule; Duration: to be determined Active Auvi-Q 0.3 MG/0.3ML as directed intramuscularly once; Duration: 30 days Active NASAL WASHES N/A as directed intranas ally as needed; Duration: 30 Active FAMOTIDINE 40 mg 1 tab(s) orally 30 m ins prior to SCIT; Duration: 30 days Active Wellbutrin XL 300 MG 1 tablet in the mor sahara Orally Once a day Active Immunizations Vaccine Route Administration Date Status [...] Problem Type II diabetes mellitus without complication (147711841) Type 2 diabetes mellitus without complications (E11.9) Active confirmed Problem Chronic allergic conjunctivitis (57947375) Other chronic allergic conjunctivitis (H10.45) Active confirmed Problem Allergic rhinitis caused by pollen (disorder) (61150951) Allergic rhinitis due to pollen (J30.1) Active confirmed Problem Allergic rhinitis (53516243) Other allergic rhinitis (J30.89) Active confirmed Problem Allergic rhinitis caused by animal hair and dander (230842133770852) Allergic rhinitis due to animal (cat) (dog) hair and dander (J30.81) Active confirmed Problem Eruption of skin (183381344) Rash and other nonspecific skin eruption (R21) Active confirmed Problem Elevated blood pressure reading without diagnosis of hypertension (954498750) Elevated blood-pressure reading, without diagnosis of hypertension (R03.0) Active confirmed Problem Pure hypercholesterolemia (901866882) Pure hypercholesterol emia, unspecified (E78.00) Active confirmed Vital Signs Blood pressure diastolic 81 mm Hg 03/25/2025 Oximetry 99 % 03/25/2025 Height 64 in 03/25/2025 Blood pressure systolic 132 mm Hg 03/25/2025 Weight 184.4 lbs 03/25/2025 BMI 31.65 kg/m2 03/25/2025 Encounters Encounter Location Date Provider Diagnosis [address] [address] 06/29/2025 Rashid Palafox Allergic rhinitis du e to pollen J30.1 ; Other allergic rhinitis J30.89 ; Allergic rhinitis due to animal (cat) (dog) hair and dander J30.81 and Other chronic allergic conjunctivitis H10.[address] [address] 05/26/2025 Rashid Palafox Allergic rhinitis du e to pollen J30.1 ; Other allergic rhinitis J30.89 ; Allergic rhinitis due to animal (cat) (dog) hair and dander J30.81 and Other chronic allergic conjunctivitis H10.[address] [address] 04/22/2025 Rashid Palafox Allergic rhinitis du e to pollen J30.1 ; Other allergic rhinitis J30.89 ; Allergic rhinitis due to animal (cat) (dog) hair and dander J30.81 and Other chronic allergic conjunctivitis H10.[address] [address] 02/24/2025 Rashid Palafox Allergic rhinitis du e to pollen J30.1 ; Other allergic rhinitis J30.89 ; Allergic rhinitis due to animal (cat) (dog) hair and dander J30.81 and Other chronic allergic conjunctivitis H10.45 [facility] [address] [place] [address] 01/27/2025 Rashid Palafox Allergic rhinitis du e to pollen J30.1 ; Other allergic rhinitis J30.89 ; Allergic rhinitis due to animal (cat) (dog) hair and dander J30.81 and Other chronic allergic conjunctivitis H10.45 [facility] [address] [place] [address] 12/30/2024 Rashid Palafox Allergic rhinitis du e to pollen J30.1 ; Other allergic rhinitis J30.89 ; Allergic rhinitis due to animal (cat) (dog) hair and dander J30.81 and Other chronic allergic conjunctivitis H10.45 [facility] [address] [place] [address] 11/26/2024 Rashid Palafox Allergic rhinitis du e to pollen J30.1 ; Other allergic rhinitis J30.89 ; Allergic rhinitis due to animal (cat) (dog) hair and dander J30.81 and Other chronic allergic conjunctivitis H10.45 [facility] [address] [place] [address] 10/29/2024 Rashid Palafox Allergic rhinitis du e to pollen J30.1 ; Other allergic rhinitis J30.89 ; Allergic rhinitis due to animal (cat) (dog) hair and dander J30.81 and Other chronic allergic conjunctivitis H10.45 [facility] [address] [place] [address] 10/22/2024 Rashid Palafox Allergic rhinitis du e to pollen J30.1 ; Other allergic rhinitis J30.89 ; Allergic rhinitis due to animal (cat) (dog) hair and dander J30.81 and Other chronic allergic conjunctivitis H10.45 [facility] [address] [place] [address] 10/01/2024 Rashid Palafox Allergic rhinitis du e to pollen J30.1 ; Other allergic rhinitis J30.89 ; Allergic rhinitis due to animal (cat) (dog) hair and dander J30.81 and Other chronic allergic conjunctivitis H10.[address] [address] 08/18/2024 Rashid Palafox Allergic rhinitis du e to pollen J30.1 ; Other allergic rhinitis J30.89 ; Allergic rhinitis due to animal (cat) (dog) hair and dander J30.81 and Other chronic allergic conjunctivitis H10.[address] [address] 03/25/2025 Anita Vela Allergic rhinitis du e to pollen J30.1 ; Allergic rhinitis due to animal (cat) (dog) hair and dander J30.81 ; Other allergic rhinitis J30.89 ; Other chronic allergic conjunctivitis H10.45 ; Rash and other nonspecific skin eruption R21 and Elevated blood-pressure reading, without diagnosis of hypertension R03.[address] [address] 10/15/2024 Zacekry Ho Allergic rhinitis du e to pollen [...] rhinitis due to pollen (ICD-10 - J30.1) 06/29/2025 Allergic rhinitis due to pollen (ICD-10 - J30.1) 06/29/2025 Other allergic rhinitis (ICD-10 - J30.89) 05/26/2025 Other allergic rhinitis (ICD-10 - J30.89) [...] and continue SCIT as an adjunctive measure 05/26/2025 Allergic rhinitis due to animal (cat) (dog) hair and dander (ICD-10 - J30.81) 04/22/2025 Allergic rhinitis due to animal (cat) (dog) hair and dander (ICD-10 - J30.81) 06/29/2025 Allergic rhinitis due to animal (cat) (dog) hair and dander (ICD-10 - J30.81) 06/29/2025 Other chronic allergic conjunctivitis (ICD-10 - H10.45) 10/22/2024 Other chronic allergic conjunctivitis (ICD-10 - H10.45) 04/22/2025 Other chronic allergic conjunctivitis (ICD-10 - H10.45) 05/26/2025 Other chronic allergic conjunctivitis (ICD-10 - [...] Appt Details Provider Name:Rashid Douglas Javy , 07/30/2025 03:30:00 PM, [address] [place], [address], Insurance Providers Payer Name Payer Address Payer Phone Subscriber Number Group Number Insured Name Patient Relationship to Insured Coverage Start Date Coverage End Date [facility] [address] [place] [address] [id number] Armida Davis Self - patient is [...]
--- OUTSIDE RECORDS SUMMARY | 2025-07-07 17:54 | XMS_ITS | Clinical Summary ---
Author Organization [facility] Address [address] [place] [address] Care Team Providers Care Crusher Supervisor Name Role Phone Aicah Call MD Primary Care Provider [phone] Allergies Active Allergy Reactions Criticality Noted Date [...] (04/19/2023): Added automatically from request for surgery [id number] Rash 09/27/2022 Pure hypercholesterolemia 09/27/2022 Elevated blood [...] 2019 Uncontrolled type 2 diabetes mellitus with hyper glycemia 05/10/2020 S/P laparoscopic sleeve gastrectomy 05/10/2020 Vitamin [...] 02/24/2014 Uterine bleeding 02/24/2014 Obesity, diabetes, and hypertension syndrome Overview (10/21/2018): Overview: Obesity Overview: Metabolic syndrome [...] Type Department Care Team Description 05/08/[address] [address] Aicha Call MD Fever 05/06/2025 11:40 AM CDT Telemedicine [address] [address] Aicha Call MD Fever (Went to ER last night, started 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 specialist, dizzy and weak, very cold; testing for COVID there, was negative, said virus ) 05/05/2025 8:09 PM CDT - 05/05/2025 10:41 PM CDT [facility] [place] [address] Nayely Robbins PA Fever Discharge Disposition: Home or Self Care (Routine Discharge) 05/05/2025 Travel 04/27/2025 2:40 PM CDT Office Visit [address] [address] Aicha Call MD Diabetes; Anxiety; Hyperlipidemia; Depression; Obesity 04/27/2025 Travel from Last 3 Months Immunizations Immunization [...] MCG/ 0.5 ML DOSE 01/25/2021,12/28/2020 MODERNA COVID-19 ([employer]), MRNA, LNP-S, PF, 50 MCG/ [...] Sex Assigned at Female 10/10/2024 3:28 PM SUBSTATION DESIGNER Legal Sex Female 8:27 PM CDT Gender Identity Female 11/06/2024 2:42 PM SUBSTATION DESIGNER Sexual Orientation Not on file Last Filed [...] st Contact Info) Description 07/29/2025 2:40 PM SUBSTATION DESIGNER Office Visit [facility] [address] [address] Aicha Call MD [address] [place] [address] Health Maintenance Due Date Last Done Comments Diabetes: Retinopathy Eye Exam 1990 Hepatitis C 1990 Annual Physical 09/19/2019 09/19/2018 Mammogram Screening 04/17/2025 04/17/2023, 01/09/2022, 01/09/2022, Additional history exists COVID-19 Vaccine ( season) 2025 06/30/2024, 06/29/2022, 08/04/2021, Additional history exists Influenza Adult (#1) 2025 09/17/2024, 06/30/2024, 07/10/2023, Additional history exists Kidney Health Evaluation 09/06/2025 09/06/2024 Lipid Panel 09/06/2025 09/06/2024, 06/18, 03/23/2023, Additional history exists Hemoglobin A1C 10/28/2025 04/27/2025, 05/0 04/2025, 08/29/2024, Additional history exists Colorectal Cancer Screening Colonoscopy (10 Years) 11/27/2028 11/27/2018 DTaP, Tdap and Td Vaccines (4 - Td or Tdap) 04/27/2035 04/27/2025, 12/29/2009, 10/12/2003, Additional history exists Meningococcal Vaccine Aged Out 03/01/1991 No heath rehana eligible based on patient's age to complete this topic Hepatitis A Vaccines Aged Out 09/02/2004, 10/12/19 04 No longer eligible based on patient's age to complete this topic Hepatitis B Vaccines Completed 10/04/2010, 04/04/2010, 12/29/2009 Pneumococcal Vaccine: 50+ Years Completed 07/13/2023, 01/14/2020 Zoster Vaccines Completed 11/23/2023, 07/13/2023 PHQ-2 (Physician Weston) Completed 05/06/2025 Meningococcal B Vaccine Aged Out No l onger eligible based on patient's age to complete this topic RSV Immunizations Under 20 Months Aged Out No longer eligible based on patient's age to complete this topic Procedures Procedure Name Priority Date/Time Associated Diagnosis Comments CORONAVIRUS (COVID 19) STAT 05/05/2025 9:09 PM CDT HEMOGLOBIN, GLYCOSYLATED Routine 04/27/2025 Type 2 diabetes mellitus with hyperlipidemia ([facility] HHS/HCC) COLLECT.CAPILLARY (FNGR,HEEL,EAR) Routine 04/27/2025 Type 2 diabetes mellitus with hyperlipidemia ([facility] HHS/HCC) LIPID PANEL Routine 09/06/2024 7:28 AM SUBSTATION DESIGNER Hyperlipidemia, unspecified hyperlipidemia type Class 1 obesity [...] RNA NEGATIVE NEGATIVE 05/05/2025 9:48 PM CDT [facility] Comment: NEGATIVE RESULTS DO NOT RULE [...] SPECIMEN TYPE NASAL 05/05/2025 8:13 PM CDT [facility] NASAL STRUCTURE / Unknown 05/05/2025 9:09 PM CDT Nayely GARCIA MICROBIOLOGY - GENERAL ORDERAB LES Final Result [facility] [address] [place] [address], [place] [phone] * A1C (BACK OFFICE) (04/27/2025) HGB A1C 5.7 % ANYA DOUGLAS 04/27/2025 Aicha Call MD LABORATORY Final Result ANY[facility] DOUGLAS [address] [place] [address], [place] [phone] * COLLECT.CAPILLARY (FNGR,HEEL,EAR) (04/27/2025) Aicha Call MD PROCEDURES-UNRESULTED Final Resu lt RUFINA MACK - CARMELA ORDERS * LIPID PANEL (09/06/2024 7:28 AM SUBSTATION DESIGNER) CHOLESTEROL 144 <200 mg/dL [facility] HDL 67 > OR = 50 mg/dL [facility] TRIGLYCERIDES 85 <150 mg/dL [facility] LDL (CALCULATED) 60 mg/dL (calc) [facility] Comment: Reference range: <100 Desirable range <100 mg/dL for primary prevention; <70 mg/dL for patients with CHD or diabetic patients with > or = 2 CHD risk factors. LDL-C is now calculated using the Mark-Irma calculation, which is a validated novel method providing better accuracy than the Friedewald equation in the estimation of LDL-C. Mark SS et al. SULEMA. 2013;310(19): 2051-3630 (http://education.[employer]/faq/ZBI857) CHOL/HDL RATIO 2.1 <5.0 (calc) [facility] NON HDL CHOLESTEROL 77 <130 mg/dL (calc) [facility] Comment: For patients with diabetes plus 1 major ASCVD risk factor, treating to a non-HDL-C goal of <100 mg/dL (LDL-C of <70 mg/dL) is considered a therapeutic option. 09/06/2024 7:28 AM SUBSTATION DESIGNER 09/06/2024 7:30 AM SUBSTATION DESIGNER Narrative RUFIN[facility] MACK - CARMELA ORDERS - 09/07/2024 7:42 AM SUBSTATION DESIGNER FASTING:YES FASTING: YES Resulting Agency Comment Performing Organization Information: Site ID: [place] Name: Rufina Donis Address: [address] [address] Director: Chema Scott MD Aicha Call MD LABORATORY Final Result Performing Organization Address City/[facility]/ZIP Co de Phone Number RUFINA ELLIOTT [facility] [address] [address], [place] * MG SCREENING W LISA EARL [...] Most Recently Relevant to Health Maintenance [place] [place] [address] Care Teams Crusher Supervisor Relationship Specialty Start Date End Date Aicha Call MD [address] [place] [address] PCP - General FAMILY PRACTICE 08/21/18
--- OUTSIDE RECORDS SUMMARY | 2025-07-07 17:54 | XMS_ITS | Encounter Summary ---
Author Organization [facility] Address [address] [place] [address] Care Team Providers Care Production Machine Computer Operator Name Role Phone Aicha Cuello MD Primary Care Provider [phone] Encounter Details Date Type Department Care Team (Late Contact Info) Description 11/09/2021 [employer] Message Enc [address] [address] [facility] Provider appt Social History Tobacco Use [...] Sex Assigned at Female 10/10/2024 3:28 PM VEST BASTER Legal Sex Female 8:27 PM CDT Gender Identity Female 11/06/2024 2:42 PM VEST BASTER Sexual Orientation Not on file COVID-19 Exposure Response Date Recorded In the last 10 days, have yo u been in contact with someone who was confirmed or suspected to have Coronavirus/COVID-19? No / Unsure 11/07/2021 10:26 AM VEST BASTER documented as of this encounter Plan of Treatment Upcoming Encounters Date Type Department Care Team (Late Contact Info) Description 07/29/2025 2:40 PM VEST BASTER Office Visit [address] [address] Aicha Cuello MD [address] [place] [address] documented as of this encounter Visit Diagnoses Not on filedocumented in this encounter Additional Health Concerns Infection Onset Date Last Indicated Resolved Time COVID-19 Rule Out 05/05/2025 05/05/2025 05/05/2025 9:48 PM CDT Assessment Noted Time PHQ-9 Depression Total Score: 3 11/07/19 22 10:32 AM VEST BASTER documented as of this encounter Care Teams Production Machine Computer Operator Relationship Specialty Start Date End Date Aicha Cuello MD [address] [place] [address] PCP - General FAMILY PRACTICE 08/21/18 documented as of this encounter
--- OUTSIDE RECORDS SUMMARY | 2025-07-07 17:55 | XMS_ITS | Clinical Summary ---
Author Organization [facility] Health Address [address] [place] [address] Care Team Providers Care Video Game Creator Name Role Phone Unavailable Primary Care Provider [...]
--- OUTSIDE RECORDS SUMMARY | 2025-07-07 17:55 | XMS_ITS | Clinical Summary ---
Author Organization [facility] Address [address] [place] [address] Phone Care Team Providers Care Oncology Physician Assistant Name Role Phone Aicha Cuello MD Primary Care Provider Allergies Active Allergy Reactions Criticality Noted Date Comments Amoxicillin Diarrhea Medium 04/19/2020 Medications empagliflozin (Jardiance) 10 mg tablet Take 10 mg by mouth daily kennel hand. 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 Gender Identity Not on file Sexual Orientation [...] Screening 11/27/2028 Medical Devices Implanted Type Area Chief Innovation Officer Device Identifier Shelf Expiration Date Model / Serial / Lot Seamguard Endogia 60 Blk [id number] - [id number] Implanted:Qty : 2 on 05/10/2020 by Kacey Russo MD at [facility] N/A: Stomach [employer] 10/29/2022 [id number] / / [id number] Seamguard Endogia 60 Prpl [id number] - [id number] Implanted:Qty : 3 on 05/10/2020 by Kacey Russo MD at [facility] N/A: Abdomen [employer] 11/06/2022 [id number] / / [id number] Lace Pinner Endoclip Iii 5mm W/Cliplogic [id number] - [id number] Implanted:Qty : 1 on 05/10/2020 by Kacey Russo MD at [facility] N/A: Abdomen [employer] - COVIDIEN [id number] / / Insurance BCBS FEDERAL RX [facility] [employer] (INTERNAL) [facility] Internal Plans [employer] Advance Directives For more information, please contact: [phone] * Full Code (Latest Code Status on File) Date Activated Date Inactivated Comments 05/10/2020 5:09 PM 05/11/2020 9:25 PM * Full Code Date Activated Date Inactivated Comments 05/10/2020 2:22 PM 05/10/2020 5:09 PM * Full Code Date Activated Date Inactivated Comments 10/20/2019 9:21 AM 10/20/2019 6:27 PM Care Teams Oncology Physician Assistant Relationship Specialty Start Date End Date Aicha Cuello MD [address] [place] [address] PCP - General Family Practice 09/12/19
--- OUTSIDE RECORDS SUMMARY | 2025-07-07 17:55 | XMS_ITS | Patient Health Record ---
Author Organization [facility] Address [address] [place], [place] [address] Care Team Providers Care Assistant Professor Of Religion Name Role Phone DIA ORTEGA Unavailable [phone] Aicha Cuello Unavailable Unavailable Allergies No Known [...] Insured Coverage Start Date Coverage End Date [facility] ATTN CLAIMS [address] [place] [address] [id number] ELISABETH RBYAN Self - patient is the insured Medical (General) History Medical History History ICD Code kidney stones Sleep apnea Diabetic
--- OUTSIDE RECORDS SUMMARY | 2025-07-07 17:55 | XMS_ITS | Encounter Summary ---
Author Organization [facility] Health Address [address] [place] [address] Care Team Providers Care Release Engineer Name Role Phone Unavailable Primary Care Provider Unavailabl e Prior Encounters Date Type Department Care Team Description 10/06/2019 Converted 13x Documents [address] [place] [address] <No scans attached> Plan of Treatment Not on file Visit Diagnoses Not on file
== END 2025-07-07 14:16 | disposition home or self-care (01) ==
PROVIDERS: Visit Provider Urology
DX: N20.0 Calculus of kidney (principal)
CPT/HCPCS: 74018